=== PATIENT | female | born 1955 | race Caucasian/White ===

== ENCOUNTER → 2017-05-31 13:10 | Outpatient (CLI) | payer OTHER, SELFPAY ==
--- NOTE | 2017-05-31 13:18 | RAD_ITS ---
STUDY: X-RAY - RIGHT HAND REASON FOR EXAM: Female, 61 years old. Systemic lupus erythematosus. TECHNIQUE: 3 view(s) of the hand. COMPARISON: None. FINDINGS: Normal radiocarpal articulation. Normal distal radioulnar joint. Small cystic degenerative changes seen in the medial aspect of the capitate, and possibly in the hamate. There is degenerative joint disease of the scaphotrapezium / trapezoid articulation. Minor narrowing at the proximal articulation between the scaphoid and capitate. The remainder of the carpal articulations are normal. Normal carpometacarpal articulation of the thumb. Normal second through fifth carpometacarpal joints. There is a punctate degenerative calcification along the dorsal medial margin of the head of the fifth metacarpal, otherwise normal metacarpi. Normal metacarpophalangeal joint of the thumb. There is degenerative arthrosis of the interphalangeal joint of the thumb with articular joint space narrowing. Normal proximal phalanx of the thumb. Mild anteromedial periarticular spurring at the base of the first distal phalanx. Normal metacarpophalangeal joints of the second through fifth fingers. There is early degenerative narrowing of the fifth proximal and distal interphalangeal joints. Otherwise, normal proximal and distal interphalangeal joints of the second through fifth fingers. Normal phalanges of the second through fifth fingers. There is generalized soft tissue swelling. There is no demonstrated osseous destructive lesion or fracture. RAD/Hand Min 3 Views IMPRESSION: Soft tissue swelling and scattered degenerative changes of the wrist and hand, as described. No acute osseous abnormality. Electronically Signed: Edinson Baig MD at 15:51 EDT , Service support ,
--- NOTE | 2017-05-31 13:19 | RAD_ITS ---
STUDY: X-RAY - LEFT HAND REASON FOR EXAM: Female, 61 years old. Systemic lupus erythematosus. TECHNIQUE: 3 view(s) of the hand. COMPARISON: None. FINDINGS: Normal radiocarpal articulation. Normal distal radioulnar joint. There is posterior cortical spurring of the triquetrum. There is narrowing of the proximal joint space between the scaphoid and capitate. There is borderline narrowing of the scaphotrapezium / trapezoid articulation. The remainder of the carpal articulations are normal. Normal carpometacarpal articulation of the thumb. Normal second through fifth carpometacarpal joints. Normal metacarpi. There is borderline degenerative arthrosis of the first metacarpophalangeal (MCP) joint. Normal interphalangeal joint of the thumb. Normal proximal phalanx of the thumb. Focal degenerative calcification seen near the medial base of the distal phalanx. The metacarpophalangeal joints of the second through fifth fingers are held in mild flexion. The fourth and fifth proximal interphalangeal joints are held in mild hyperextension. Otherwise, normal proximal and distal interphalangeal joints of the second through fifth fingers. There is a foreshortened middle phalanx of the fifth finger, and mild lateral flattening of the head of the mid phalanx. There is a mild varus deviation at the fifth distal interphalangeal joint. Otherwise, normal of the second through fifth fingers. There is generalized soft tissue swelling of the wrist and hand calcification that may be atherosclerotic seen in the dorsal soft tissues of the distal forearm. There is no demonstrated acute fracture or osseous destructive lesion. RAD/Hand Min 3 Views IMPRESSION: Soft tissue swelling of the wrist and hand. There are occasional scattered degenerative changes of the wrist and hand, as described. No acute osseous abnormality. Electronically Signed: Edinson Baig MD at 15:57 EDT , Service support ,
--- NOTE | 2017-05-31 13:21 | RAD_ITS ---
STUDY: X-RAY - PELVIS AND RIGHT HIP REASON FOR EXAM: Female, 61 years old. Systemic lupus erythematosus. TECHNIQUE: Radiological exam, hip, unilateral, with pelvis when performed; 2 or 3 views. COMPARISON: None. FINDINGS: There is a non-specific bowel gas pattern. There are multiple calcified phleboliths in the pelvic soft tissues. A cluster of calcifications project in the mid left flank, etiology uncertain. There are multilevel degenerative changes of the visualized lumbar spine. There is mild narrowing with cortical sclerosis of the left sacroiliac joint, consistent with degenerative osteoarthritic changes. Normal iliac wings and visualized sacrum. Normal bilateral superior and inferior pubic rami. Normal pubic symphysis. Normal bilateral ischial tuberosities. Normal visualized right femoral head. Normal right acetabulum. There is moderately severe articular joint space narrowing of the right hip. Moderate degenerative joint space narrowing seen on the left. There is no demonstrated osseous destructive lesion or acute fracture. RAD/Hip 2-3 Views with Pelvis IMPRESSION: Degenerative changes of the spine, left sacroiliac joint, and right hip, as described. Electronically Signed: Edinson Baig MD at 15:59 EDT , Service support ,
== END ==
PROVIDERS: Family Provider Family Medicine; PCP Family Medicine; Visit Provider Internal Medicine Rheumatology
DX: M32.9 Systemic lupus erythematosus, unspecified (principal)
CPT/HCPCS: 73130; 73502

== ENCOUNTER → 2017-07-15 09:26 | Outpatient (CLI) | payer OTHER, SELFPAY ==
--- NOTE | 2017-07-15 09:30 | BD_ITS ---
STUDY: DUAL ENERGY X-RAY ABSORPTIOMETRY / DXA REASON FOR EXAM: Female, 62 years old. Bone density screening. Patient is on prednisone. TECHNIQUE: Bone Mineral Density (BMD) measurements of lumbar spine were obtained. COMPARISON: July 10, 2015 FINDINGS: Lumbar Spine (L1-L4): g/cm2 (1.117) / T-score (-0.5) / Z-score (0.7) Findings are suggestive of normal bone density with a low fracture risk. Lumbar Spine (L1-L4): There has been improvement of bone density since the previous examination. BD/Dexa Bone Density Study IMPRESSION: The patient is considered normal as outlined below according to World [employer] Organization (WHO) criteria with a low fracture risk. There has been improvement of bone density since the previous examination. Reference Information: The T-score is the number of standard deviations above or below the standard which is normal for young adults at their peak bone mineral density. The World Health Organization (WHO) interprets the T-scores as follows: Above -1 Normal bone density Between -1 and -2.5 Osteopenia Equal to / or below -2.5 Osteoporosis As a practical clinical guideline, osteopenia may be graded as follows: Mild -1 through -1.5 Moderate -1.6 through -2.0 Severe -2.1 through -2.4 The Z-score is the number of standard deviations above or below age-matched controls. A Z-score of less than -1.5 would be considered abnormal. References: 1. NIH Osteoporosis and Related Bone Diseases http://www.osteo.org 2. International Society for Clinical Densitometry http://www.iscd.org 3. National Osteoporosis Foundation http://www.nof.org Electronically Signed: Ernestina Llanos MD at 9:05 EDT , Service support ,
== END ==
PROVIDERS: Family Provider Family Medicine; PCP Family Medicine; Visit Provider Internal Medicine Rheumatology
DX: M80.00XA Age-related osteoporosis with current pathological fracture, unspecified site, initial encounter for fracture (principal)
CPT/HCPCS: 77080

== ENCOUNTER → 2017-11-26 14:56 | Outpatient (CLI) | payer SELFPAY ==
[2017-12-06 09:20] LABS: HPV APTIMA, High Risk Negative (Negative); HPV Reflexed? YES, CHARGE PATIENT
== END ==
PROVIDERS: Visit Provider Obstetrics & Gynecology
DX: Z12.4 Encounter for screening for malignant neoplasm of cervix (principal)
CPT/HCPCS: 87624; 88175; G0145

== ENCOUNTER → 2018-03-28 11:30 | Outpatient (CLI) | payer OTHER, SELFPAY ==
[2018-03-28 14:09] LABS: Absolute Lymphocyte Count 0.25 X10^3/ul (0.83-4.51); Absolute Neutrophil Count 3.4 X10^3/uL (2.0-7.7); Basophil# 0.01 X10^3/uL; Basophil% 0.3 % (0-1); Hematocrit 43.6 % (37-47); Hemoglobin 13.2 g/dl (12.0-15.0); Lymphocyte # 0.25 X10^3/ul (4.0); Lymphocyte % 6.5 % (19-41); Mean Corp Hgb Conc 30.3 g/gl (32-36); Mean Corpuscular Hgb 25.7 pg (27.0-32.0); Monocyte# 0.15 X10^3/uL; Monocyte% 3.9 % (0-10); Neutrophil # 3.41 X10^3/uL (2.7-7.7); Neutrophil % 88.5 % (47-70); Platelet Count 57 K/mm3 (150-450); RBC Distribution Width CV 16.5 % (11.6-14.6); RBC Distribution Width SD 51.2 fl (35.1-43.9); Red Blood Count 5.13 M/mm3 (4.2-5.4); White Blood Count 3.9 K/mm3 (4.4-11.0)
[2018-03-28 14:13] LABS: Differential Indicated SCAN CRITERIA MET; POSITIVE COUNT NO; POSITIVE DIFFERENTIAL YES; POSITIVE MORPHOLOGY YES
[2018-03-28 14:17] LABS: AST(SGOT) 41 U/L (15-37); Alanine Aminotransfer ALT/SGPT 59 U/L (13-56); Alkaline Phosphatase 266 U/L (45-117); Bilirubin, Direct 0.32 mg/dL (0.00-0.30); Globulin 5.8 g/dL (2.2-4.2); Protein, Total 8.8 g/dL (6.4-8.2)
== END ==
PROVIDERS: Family Provider Family Medicine; PCP Family Medicine; Referring Provider Internal Medicine Gastroenterology; Visit Provider Internal Medicine Gastroenterology
DX: K75.4 Autoimmune hepatitis (principal); D69.6 Thrombocytopenia, unspecified
CPT/HCPCS: 36415; 80076; 85025

== ENCOUNTER → 2018-08-23 16:51 | Outpatient (CLI) | payer OTHER, SELFPAY ==
--- NOTE | 2018-08-23 16:55 | RAD_ITS ---
STUDY: X-RAY CHEST REASON FOR EXAM: Female, 63 years old. Lupus TECHNIQUE: PA and lateral views of the chest. COMPARISON: None. FINDINGS: There is airspace consolidation involving the lateral upper and midlung zones (likely left upper lobe and lingular). The right lung and left lower lobe are clear. There is no demonstrated pleural abnormality. Normal size heart. Normal mediastinum and payton. Normal visualized pulmonary arteries. There is atherosclerotic tortuosity of the aortic arch and descending thoracic aorta. Normal visualized thoracic spine. Normal visualized ribs, clavicles, and shoulders. There is no demonstrated abnormality of the visualized soft tissue structures of the upper abdomen. RAD/Chest PA and Lateral IMPRESSION: Left upper lobe/lingular airspace disease suggesting pneumonia in the appropriate clinical setting. Follow-up is recommended. Electronically Signed: Jarek Roberts MD at 9:05 EDT , Service support ,
[2018-08-23 18:11] LABS: Hematocrit 34.8 % (37-47); Hemoglobin 11.3 g/dl (12.0-15.0); Mean Corpuscular Hgb 26.4 pg (27.0-32.0); Mean Corpuscular Volume 81.3 fL (81-99); Red Blood Count 4.28 M/mm3 (4.2-5.4); White Blood Count 16.7 K/mm3 (4.4-11.0)
[2018-08-23 18:12] LABS: Absolute Neutrophil Count 15.4 X10^3/uL (2.0-7.7); Basophil% 0.1 % (0-1); Differential Indicated SCAN CRITERIA MET; Lymphocyte % 2.2 % (19-41); Mean Corp Hgb Conc 32.5 g/gl (32-36); Monocyte% 5.1 % (0-10); Neutrophil % 92.2 % (47-70); POSITIVE COUNT NO; POSITIVE DIFFERENTIAL YES; POSITIVE MORPHOLOGY YES; Platelet Count 127 K/mm3 (150-450); RBC Distribution Width SD 48.1 fl (35.1-43.9)
[2018-08-23 18:13] LABS: Absolute Lymphocyte Count 0.37 X10^3/ul (0.83-4.51); Basophil# 0.01 X10^3/uL; Lymphocyte # 0.37 X10^3/ul (4.0); Monocyte# 0.86 X10^3/uL
[2018-08-23 18:14] LABS: Platelet Estimate SLT DEC (ADEQ)
[2018-08-23 18:15] LABS: Erythrocyte Sedimentation Rate > 130 mm/hr (0-30)
[2018-08-23 18:30] LABS: Anion Gap 12 (5-15); BUN 52 mg/dL (7-18); BUN/Creat Ratio 60.9 RATIO (10-20); Calcium,Total 8.8 mg/dL (8.5-10.1); Chloride 96 mmol/L (98-107); Creatinine, Serum 0.85 mg/dL (0.55-1.02); EST Glomerular Filtration Rate 72 mL/min (>60); Est Glom Filt Rate - Afr Amer 87 mL/min (>60); Glucose 245 mg/dL (74-106); Potassium 4.1 mmol/L (3.5-5.1); Sodium Level 130 mmol/L (136-145)
[2018-08-25 14:06] LABS: Anti-Scleroderma-70 AB <0.2 AI (0.0-0.9); Anti-ribosomal P Antibodies 0.3 AI (0.0-0.9); SJOGREN'S Anti-SS-A test < 0.2 AI (0.0-0.9); SJOGREN'S Anti-SS-B test < 0.2 AI (0.0-0.9)
[2018-08-26 11:11] LABS: ANTINUCLEAR ANTIBODIES DIRECT Positive (Negative)
[2018-08-26 16:07] LABS: Complement C3 65 mg/dL (82-167)
[2018-08-27 15:26] LABS: Thyroid Peroxidase AB 17 IU/mL (0-34)
== END ==
PROVIDERS: Family Provider Family Medicine; PCP Family Medicine; Referring Provider Internal Medicine Rheumatology; Visit Provider Internal Medicine Rheumatology
DX: M32.9 Systemic lupus erythematosus, unspecified (principal)
CPT/HCPCS: 36415; 71046; 80048; 83516; 85025; 85652; 86038; 86140; 86160; 86226; 86235; 86376; 86431; 87077; 87086; 87088; 87186

== ENCOUNTER → 2018-09-06 08:53 | Outpatient (CLI) | payer OTHER, SELFPAY ==
[2018-09-06 10:19] LABS: Hemoglobin A1c 6.1 % (4.2-6.3)
[2018-09-06 10:24] LABS: Glucose 86 mg/dL (74-106)
== END ==
PROVIDERS: Family Provider Family Medicine; PCP Family Medicine; Referring Provider Internal Medicine Rheumatology; Visit Provider Internal Medicine Rheumatology
DX: M32.9 Systemic lupus erythematosus, unspecified (principal)
CPT/HCPCS: 36415; 82947; 83036

== ENCOUNTER 2018-09-21 16:55 | Observation (INO) | payer OTHER, SELFPAY ==
[2018-09-21 16:57] VITALS: BP 142/79; PULSE 132; RESP 18; TEMP 36.8; O2SAT 97; BMI 26.7
--- NOTE | 2018-09-21 17:11 | NURSING ---
NO OLD EKGS
--- NOTE | 2018-09-21 17:21 | EKG12_ITS ---
Test Reason : TACHYCARDIA Blood Pressure : / mmHG Vent. Rate : 109 BPM Atrial Rate : 109 BPM P-R Int : 128 ms QRS Dur : 070 ms QT Int : 354 ms P-R-T Axes : 027 -32 000 degrees QTc Int : 476 ms Sinus tachycardia with occasional Premature ventricular complexes Left axis deviation Low voltage QRS Possible Anterolateral infarct , age undetermined Abnormal ECG When compared with ECG of 21-SEP-2018 17:05, MANUAL COMPARISON REQUIRED, DATA IS UNCONFIRMED Confirmed by NIKI MENSAH, MANFRED ([id number]), editorial assistant EDMUND JAMESON ([id number]) on 09/23/2018 12:43:55 PM Referred By: Amanda Lerma Confirmed By:TIMI PRINCE MD
[2018-09-21 17:42] LABS: Absolute Lymphocyte Count 0.43 X10^3/ul (0.83-4.51); Basophil# 0.01 X10^3/uL; Basophil% 0.2 % (0-1); Differential Indicated SCAN CRITERIA MET; Lymphocyte # 0.43 X10^3/ul (4.0); Lymphocyte % 9.4 % (19-41); Mean Corp Hgb Conc 28.6 g/gl (32-36); Mean Corpuscular Hgb 23.9 pg (27.0-32.0); Mean Corpuscular Volume 83.7 fL (81-99); Monocyte# 0.14 X10^3/uL; Monocyte% 3.1 % (0-10); Neutrophil # 3.99 X10^3/uL (2.7-7.7); Neutrophil % 87.1 % (47-70); POSITIVE COUNT NO; POSITIVE DIFFERENTIAL YES; POSITIVE MORPHOLOGY YES; Platelet Count 81 K/mm3 (150-450); RBC Distribution Width CV 17.5 % (11.6-14.6); RBC Distribution Width SD 53.8 fl (35.1-43.9); Red Blood Count 4.18 M/mm3 (4.2-5.4); White Blood Count 4.6 K/mm3 (4.4-11.0)
[2018-09-21 17:44] LABS: Anion Gap 8 (5-15); BUN 15 mg/dL (7-18); BUN/Creat Ratio 22.2 RATIO (10-20); Calcium,Total 8.4 mg/dL (8.5-10.1); Chloride 108 mmol/L (98-107); Creatinine, Serum 0.68 mg/dL (0.55-1.02); EST Glomerular Filtration Rate 94 mL/min (>60); Est Glom Filt Rate - Afr Amer 113 mL/min (>60); Estimated Creatinine Clearance 78.62 ml/min; Glucose 170 mg/dL (74-106); Potassium 3.8 mmol/L (3.5-5.1); Sodium Level 140 mmol/L (136-145)
[2018-09-21 18:05] LABS: Differential Comment SCANNED
--- NOTE | 2018-09-21 18:28 | CT_ITS ---
STUDY: CTA CHEST REASON FOR EXAM: Female, 63 years old. Edema. History of lupus. RADIATION DOSAGE (If Supplied By Facility): CTDIvol = ( 7.77 ) mGy, DLP = ( 275.88 ) mGycm TECHNIQUE: The examination was performed with the intravenous administration of 100ml IV Isovue 300. Post-processing of the angiographic images was performed, with multiplanar reformation and 3D reconstruction. Individualized dose optimization techniques were used for this CT. COMPARISON: None. FINDINGS: Normal enhancement of the main pulmonary artery and right and left pulmonary arteries. Normal enhancement of the bilateral peripheral pulmonary arteries. There is no demonstrated pulmonary embolism. Normal thoracic aorta and visualized great vessels. There is no demonstrated aortic dissection. There is mild cardiomegaly. Normal mediastinum. Normal hilar regions. Normal visualized trachea and bronchi. The lungs are under expanded. Parenchymal density and volume loss is seen of the left upper lobe. Findings are most likely scarring but cannot exclude atelectasis or infiltrate. Infiltrating neoplasm also not excluded. Consider follow-up and/or bronchoscopy. Normal chest wall structures. There are degenerative changes of thoracic spine. There is diffuse demineralization. There are multiple compression fractures especially of T7, T9, T10, and T11. Limited views to the upper abdomen show ascites, a small liver, and splenomegaly. Question cirrhosis. CT/CTA Chest W/WO Contrast IMPRESSION: No evidence for PE. Low lung volumes and pulmonary density throughout the left upper lobe, please see comments above. Electronically Signed: Galen Del Angel MD at 19:19 EDT , Service support ,
[2018-09-21 19:00] VITALS: BP 139/80; PULSE 103; RESP 18; O2SAT 99
[2018-09-21 20:19] VITALS: BP 142/86; PULSE 112; RESP 19; O2SAT 99
--- NOTE | 2018-09-21 20:38 | ED.DCSUM_ITS ---
- ER Visit Summary Date of Service: 09/21/18 Chief Complaint: Palpitations, shortness of breath History of Present Illness: The patient is a 63 F presenting with palpitations, shortness of breath. This has been worsening over the past several days. The shortness of breath is worsened with exertion. She was seen by her primary care physician today and was sent into the ED for further evaluation. She was treated as an outpatient for pneumonia in August. She also complains of increasing lower extremity swelling. She has a history of hypertension and lupus. Denies history of PE/DVT. Physical Examination: Vitals are stable. Heart rate 132. Patient is afebrile. Alert no acute distress. HEENT exam is unremarkable. Neck is supple. Lungs are diminished bilaterally. Heart is regular and tachycardic Abdomen is soft nontender nondistended. Extremities symmetric edema Skin is warm and dry. No focal neurologic deficit. Remainder of exam is unremarkable. Emergency Department Course and Treatment: CBC normal hemoglobin 10.0, platelet 81. Chemistries unremarkable. Troponin is negative. BNP 74. Blood cultures were sent. EKG is sinus rate of 119 with no acute ischemic changes. CTA chest shows No evidence for PE. Low lung volumes and pulmonary density throughout the left upper lobe. Patient given Rocephin, Zithromax IV. Discussed with the hospitalist for admission. Disposition: Admission Impression: Pneumonia, tachycardia This note was generated with [employer] dictation software. It may contain incorrect words, spelling, and punctuation that were not noted in review of the chart prior to signing ED Disposition - Plan for ED Patient: Referrals: Juanjose Chapman MD [Primary Care Provider] -
--- NOTE | 2018-09-21 20:41 | HP.PCM_ITS ---
Problem List (1) Tachycardia Status: Acute (2) SLE (systemic lupus erythematosus related syndrome) Status: Chronic (3) Cirrhosis Status: Chronic Qualifiers: Hepatic cirrhosis type: unspecified hepatic cirrhosis Ascites presence: with ascites Qualified Code(s): K74.60 - Unspecified cirrhosis of liver; R18.8 - Other ascites (4) Autoimmune hepatitis Status: Chronic History of Present Illness Date of Admission: 09/21/18 Chief Complaint: Tachycardia - 1 month. Abdominal distension, SOB ongoing for 3 weeks The patient is a 63 year old F with past medical history of autoimmune hepatitis with ascites and liver cirrhosis, follows with Dr. Dinh who comes in referred from her primary care doctor's office with tachycardia. Patient admits to having had tachycardia for about 1 month. They had followed up with the primary care doctor's office over this past 1 month. She also had noticed increasing abdominal distension with worsening bilateral lower extremities edema. She has been having loose stools, about 3 times a day. She would not call it diarrhea. Denies any fever or chills or cough or sputum production. She was recently treated for pneumonia about 2 weeks ago. She however has remained fatigued since then. Denies any chest pain or dizziness. Today her primary care doctor noticed tachycardia with heart rate in the 120s and stented to the emergency department. In the ED, her heart rate went as high as 132. Her WBC count is 4.6, hemoglobin 10.0, platelet count is 81 which is close to her baseline, BMP is unremarkable except for magnesium 1.6, calcium 8.4 CTA of the chest negative for acute PE. It did show left upper lobe parenchyma density and volume loss, most likely secondary to infiltrate versus atelectasis versus scarring. Abdomen and pelvis CT shows diffuse ascites, sclerotic appearing liver with marked splenomegaly, gallstones without cholecystitis, hiatal hernia, anasarca Past Medical History Past Medical History (Chronic Problems): Chronic Problems SLE (systemic lupus erythematosus related syndrome) (Chronic) Cirrhosis (Chronic) Autoimmune hepatitis (Chronic) Allergies Sulfa (Sulfonamide Antibiotics) Allergy (Verified 09/21/18 16:59) Other UNKNOWN Home Medications: Ambulatory Orders Medication Instructions Recorded Amlodipine [Norvasc] 5 mg PO DAILY 09/21/18 Prednisone 10 mg PO DAILY 09/21/18 Surgical History: appendectomy, - - section Psychiatric History: No pertinent psych hx [employer] 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 Denies: Anorexia, Chills, Fever, Weight Change Eyes: Denies: Blurred vision, Cataracts, Conjunctivae Inflammation, Double vision, Pain, Redness, Vision Change HEENT: Denies: Difficulty Hearing, Difficulty Swallowing, Head Aches, Hearing Changes, Sinus Congestion, Sinus Drainage, Sore Throat Cardiovascular: Reports: Edema, Palpitations. Denies: Chest Pain, Claudication, Chest Pressure, Orthopnea Respiratory: Reports: Shortness of Breath, Shortness of breath upon exertion. Denies: Cough, Hemoptysis, Sputum production Gastrointestinal: Denies: Abdominal Pain, Constipation, Hematemesis, Hematochezia, Nausea, Vomiting Genitourinary: Denies: Dysuria, Frequency, Incontinence Gynecological: Denies: Breast symptoms, Excessively long or heavy periods, Vaginal discharge Musculoskeletal: Denies: Joint Pain, Joint Tenderness Skin: Denies: Rash, Wounds Neurological: Denies: Difficulty swallowing, Focal weakness, Numbness, Tingling Psychiatric: Denies: Anxiety, Depression, Homicidal Ideations, Suicidal Ideations Hematologic/ Lymphatic: Denies: Easy Bruising, Easy Bleeding VTE Information - Inpt Only VTE Present on Admission: No VTE Pharm Prophylaxis ordered?: Yes Patient Problems: Active and Suspected Problems Tachycardia (Acute) - Physical Exam General: Alert, Oriented x3, Cooperative, No apparent distress HEENT: Atraumatic, PERRLA, EOMI, Normocephalic Oral: Moist Mucosa Neck: Supple Lungs: Clear to auscultation, Normal air movement Cardiovascular: Regular rate, Regular Rhythm, Normal S1, Normal S2, No murmurs Abdomen: Bowel Sounds Present, Soft, Non Tender, Non-Distended, No Hepato- splenomegaly Extremities: Edema - bilateral leg edema +2 especially at the ankles- +3 Skin: No rashes Musculoskeletal: No Tenderness to Palpation of Joints or Extremities Lymphatic: No Cervical, Supraclavicular, or Inguinal Adenopathy Neurological: Cranial nerves II-XII grossly intact, Neuro grossly intact Psych/Mental Status: Normal Affect, Appropriate Vital Signs Temp Pulse Resp BP Pulse Ox 98.2 F 112 H 19 H 142/86 H 99 09/21/18 16:57 09/21/18 20:19 09/21/18 20:19 09/21/18 20:19 09/21/18 20:19 Oxygen Delivery Method Room Air Weight: 58.06 kg Body Mass Index (BMI) 26.7 Laboratory Tests Past 24 Hrs 09/21/18 09/21/18 09/21/18 17:10 17:10 17:10 WBC 4.6 RBC 4.18 L Hgb 10.0 L Hct 35.0 L MCV 83.7 MCH 23.9 L MCHC 28.6 L RDW 17.5 H RDW Differential 53.8 H Plt Count 81 L MPV TNP Immature Gran % (Auto) 0.200 Neut % (Auto) 87.1 H Lymph % (Auto) 9.4 L Fergus % (Auto) 3.1 Eos % (Auto) 0.0 Baso % (Auto) 0.2 Absolute Neuts (auto) 4.0 Absolute Lymphs (auto) 0.43 L Total Counted Not Reportable Differential Comment SCANNED Sodium 140 Potassium 3.8 Chloride 108 H Carbon Dioxide 24.0 Anion Gap 8 BUN 15 Creatinine 0.68 Estim Creat Clear Calc 78.62 Est GFR (MDRD) Af Amer 113 Est GFR (MDRD) Non-Af 94 BUN/Creatinine Ratio 22.2 H Glucose 170 H Calcium 8.4 L Troponin I < 0.015 B-Natriuretic Peptide 74.0 Assessment/Plan All Active Problems Tachycardia (Acute) 63 year old F with past medical history of autoimmune hepatitis with ascites and liver cirrhosis, follows with Dr. Dinh, SLE, hypertension who comes in referred from her primary care doctor's office with tachycardia. 1. Tachycardia, sinus, unclear etiology for now, states is been ongoing for 1 month. TSH is normal, PE was ruled out with CTA of the chest, no signs of infection, blood cultures are pending Started on gentle IV fluids, will continue to monitor, 2d-echo, trend troponins 2. Liver cirrhosis secondary to autoimmune hepatitis with ascites, patient has worsening ascites with lower extremity edema Ultrasound-guided therapeutic paracentesis tomorrow, OPAL-wraps to the legs 3. Hypertension, on amlodipine, will discontinue amlodipine on account of extra pedal edema Will start patient on spironolactone 25mg po bid with holding parameters 4. Hypomagnesemia, replaced, recheck in a.m. 5. 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 SOB secondary to progressive ascites, less likely from community-acquired pneumonia as patient has no fever or chills or cough No leukocytosis. Recently completed treatment for pneumonia 2 weeks prior. Patient to undergo therapeutic ultrasound-guided paracentesis, continue incentive spirometer 7. Thrombocytopenia secondary to liver cirrhosis, at her baseline, will trend 8. DVT prophylaxis with SCDs and account of thrombocytopenia Code Visit Inpatient E&M: 29297 Init Hosp L3
--- NOTE | 2018-09-21 21:03 | CT_ITS ---
STUDY: CT ABDOMEN AND PELVIS WITHOUT CONTRAST REASON FOR EXAM: Female, 63 years old. Abdominal pain and distention. History of lupus. RADIATION DOSAGE (If Supplied By Facility): CTDIvol = ( 7.47 ) mGy, DLP = ( 417.36 ) mGycm TECHNIQUE: Transaxial images were obtained from the dome of the diaphragm to the symphysis pubis without oral contrast, and without intravenous contrast. Sagittal and coronal images were reconstructed. Individualized dose optimization techniques were used for this CT. COMPARISON: CTA of the chest, August 22, 2018. FINDINGS: There is a small right pleural effusion. Lungs are clear. The visualized portions of the heart are within normal limits. The liver appears cirrhotic with prominent left lateral lobe prominent caudate lobe and nodular surface pattern. There is no focal mass. There are gallstones in the gallbladder without biliary ductal dilatation. Marked splenomegaly. Normal pancreas. Normal bilateral adrenal glands. Normal right kidney. There is an 8 mm cyst in the upper left kidney. Left kidney is otherwise unremarkable. Normal bilateral ureters. There is a type I hiatal hernia. The stomach is otherwise unremarkable. Normal small intestine. Normal colon. The appendix is visualized and appears normal. There is diffuse atherosclerotic calcification of the abdominal aorta, without a demonstrated aneurysm. Normal inferior vena cava. Normal retroperitoneum. There is diffuse ascites in the subphrenic space is throughout the abdomen and pelvis. Normal urinary bladder. Normal uterus and ovaries. There is no pelvic lymphadenopathy. No free air is seen within the peritoneal cavity. There is mild anasarca of the soft tissues of the abdominal wall and flanks. There is flattening of the lumbar lordosis. There is diffuse degenerative changes of the lumbar spine. There is compression deformities at T9-L5. These are age indeterminate. CT/Abdomen/Pelvis without Cont IMPRESSION: 1. Diffuse ascites. 2. Sclerotic appearing liver with marked splenomegaly. 3. Gallstones without secondary evidence for acute cholecystitis. 4. Hiatal hernia. 5. Small right pleural effusion. 6. Anasarca. 7. Atherosclerotic changes of the abdominal aorta. 8. Degenerative changes of the thoracolumbar spine with multiple age indeterminate compression deformities. 9. Left renal cyst. Electronically Signed: Clifford Joseph DO at 21:35 EDT Tel [phone], Service support ,
[2018-09-21 21:33] VITALS: BP 131/79; PULSE 109; RESP 21; O2SAT 98
--- NOTE | 2018-09-21 21:46 | ED.RN ---
ZITHROMAX STARTED PRIOR TO ROCEPHIN DUE TO IT NOT COMING UP FROM PHARMACY YET
[2018-09-21 22:30] VITALS: BP 148/87; PULSE 107; RESP 20; TEMP 36.6; O2SAT 98
[2018-09-21 22:57] VITALS: PULSE 102
--- NOTE | 2018-09-21 22:59 | ECHOD_ITS ---
Reason For Study: ARRHYTHMIA Procedure This was a 2D Doppler, Color Flow transthoracic echocardiogram. The study was technically difficult. Exam performed portable in patient room. Left Ventricle Normal size and thickness. The estimated ejection fraction is 60 %. Stage 2 diastolic dysfunction. No regional wall motion abnormalities noted. Right Ventricle Normal right ventricle. Normal systolic function. Atria The left atrium is mildly enlarged. Normal right atrium. possible ASD. Mitral Valve There is no mitral valve stenosis. Mild-Moderate (1-2+) mitral valve insufficiency. Tricuspid Valve There is no tricuspid stenosis. Trivial tricuspid valve insufficiency. Pulmonary artery systolic pressure is 40 mmHg. Aortic Valve There is no aortic stenosis. No aortic valve insufficiency. Pulmonic Valve There is no pulmonic valvular stenosis. No pulmonic valve insufficiency identified. Great Vessels Normal aortic root. Pericardium/Pleural No pericardial effusion. MMode/2D Measurements & Calculations LVIDd: 4.3 cm IVSd: 1.1 cm Ao root diam: 3.4 cm LVIDs: 3.1 cm LVPWd: 1.3 cm RVDd: 2.7 cm FS: 26.9 % LAV(MOD-bp): 48.9 ml LA A4 area: 16.1 cm2 LA dimension(2D): 3.6 cm LAV(MOD-bp) Indexed: 37.2 ml/m2 LAV(MOD-sp2): 57.9 ml LAV(MOD-sp4): 40.2 ml RA A4 area: 9.9 cm2 Doppler Measurements & Calculations MV E max alvin: 90.1 cm/sec Lat Peak E' Alvin: 9.0 cm/sec Med Peak E' Alvin: 8.3 cm/sec MV A max alvin: 136.0 cm/sec E/E' lat: 10.0 E/E' med: 10.9 MV E/A: 0.66 Ao V2 max: 165.0 cm/sec LV V1 max: 108.1 cm/sec PA V2 max: 103.6 cm/sec Ao max P.9 mmHg LV V1 max P.7 mmHg TR max alvin: 277.6 cm/sec TR max P.0 mmHg Interpretation Summary The estimated ejection fraction is 60 %. Stage 2 diastolic dysfunction. The left atrium is mildly enlarged. possible ASD Mild-Moderate (1-2+) mitral valve insufficiency. Pulmonary artery systolic pressure is 40 mmHg. Ordering Physician: Amanda Lerma Referring Physician: ZEKE MARTINEZ Performed By: Chiquita Butler, ANAM, RVT
[2018-09-21 23:11] VITALS: BMI 26.9
[2018-09-21 23:35] LABS: Magnesium 1.6 mg/dL (1.6-2.6)
[2018-09-21 23:47] LABS: Thyroid Stim Hormone (TSH) 2.19 uIU/mL (0.358-3.74)
[2018-09-22] VITALS (9 sets, daily range): BP systolic 130–135; BP diastolic 71–82; PULSE 81–108; RESP 16–18; TEMP 36.6–37.1; O2SAT 95–100
[2018-09-22] MEDS: 0.9% Normal Saline 1,000 ML 75 ML IV (00:01)
[2018-09-22] MEDS: Heparin Injection (Vial) 5,000 UNIT/ML VIAL 5000 UNIT SC (00:03)
[2018-09-22] MEDS: Ceftriaxone 1 GM/50 ML BAG IV (00:04)
--- NOTE | 2018-09-22 00:18 | EKG12_ITS ---
Test Reason : PALPITATIONS Blood Pressure : / mmHG Vent. Rate : 119 BPM Atrial Rate : 119 BPM P-R Int : 126 ms QRS Dur : 064 ms QT Int : 302 ms P-R-T Axes : 018 -37 014 degrees QTc Int : 424 ms Sinus tachycardia with Premature atrial complexes Left axis deviation Low voltage QRS Septal infarct , age undetermined Possible Lateral infarct , age undetermined Inferior infarct , age undetermined Abnormal ECG Confirmed by NIKI MENSAH, MANFRED ([id number]), continuity editor EDMUND JAMSEON ([id number]) on 09/23/2018 12:27:37 PM Referred By: Amanda Lerma Confirmed By:TIMI PRINCE MD
[2018-09-22 00:32] LABS: AST(SGOT) 31 U/L (15-37); Alanine Aminotransfer ALT/SGPT 36 U/L (13-56); Albumin, Serum 2.7 g/dL (3.2-5.0); Alkaline Phosphatase 286 U/L (45-117); Bilirubin, Direct 0.25 mg/dL (0.00-0.30); Globulin 4.7 g/dL (2.2-4.2); Protein, Total 7.4 g/dL (6.4-8.2)
[2018-09-22 05:29] LABS: International Normalized Ratio 1.3; Prothrombin Time (Protime)PT. 15.7 SECONDS (11.7-14.9)
[2018-09-22 05:30] LABS: Partial Thromboplast Time 28.4 Seconds (24.1-36.2)
[2018-09-22 05:32] LABS: Absolute Lymphocyte Count 0.23 X10^3/ul (0.83-4.51); Absolute Neutrophil Count 1.2 X10^3/uL (2.0-7.7); Basophil# 0.01 X10^3/uL; Basophil% 0.6 % (0-1); Differential Indicated SCAN CRITERIA MET; Hematocrit 29.1 % (37-47); Lymphocyte # 0.23 X10^3/ul (4.0); Mean Corp Hgb Conc 27.5 g/gl (32-36); Mean Corpuscular Volume 83.6 fL (81-99); Mean Platelet Vol. 11.4 fl (6.2-12.0); Monocyte# 0.21 X10^3/uL; Monocyte% 12.8 % (0-10); Neutrophil # 1.18 X10^3/uL (2.7-7.7); POSITIVE COUNT NO; POSITIVE DIFFERENTIAL YES; POSITIVE MORPHOLOGY NO; Platelet Count 82 K/mm3 (150-450); RBC Distribution Width CV 17.6 % (11.6-14.6); RBC Distribution Width SD 51.5 fl (35.1-43.9); Red Blood Count 3.48 M/mm3 (4.2-5.4); White Blood Count 1.6 K/mm3 (4.4-11.0)
[2018-09-22 05:36] LABS: ALB/GLOB Ratio 0.6 RATIO (0.9-2.4); AST(SGOT) 16 U/L (15-37); Alanine Aminotransfer ALT/SGPT 26 U/L (13-56); Albumin, Serum 2.1 g/dL (3.2-5.0); Alkaline Phosphatase 211 U/L (45-117); Anion Gap 6 (5-15); BUN 10 mg/dL (7-18); Calcium,Total 7.7 mg/dL (8.5-10.1); Chloride 112 mmol/L (98-107); Creatinine, Serum 0.46 mg/dL (0.55-1.02); EST Glomerular Filtration Rate 148 mL/min (>60); Est Glom Filt Rate - Afr Amer 179 mL/min (>60); Estimated Creatinine Clearance 116.71 ml/min; Globulin 3.7 g/dL (2.2-4.2); Glucose 84 mg/dL (74-106); Iron 17 ug/dL (50-170); Iron Binding Capacity,Total 192 ug/dL (250-450); PERCENT IRON SATURATION 8.9 % (15.0-55.0); Potassium 3.4 mmol/L (3.5-5.1); Protein, Total 5.8 g/dL (6.4-8.2); Sodium Level 144 mmol/L (136-145)
--- NOTE | 2018-09-22 05:55 | RAD_ITS ---
STUDY: X-RAY CHEST REASON FOR EXAM: Female, 63 years old. Increasing shortness of breath and tachycardia. TECHNIQUE: PA and lateral views of the chest. COMPARISON: Comparison is made with prior study dated August 23, 2018. FINDINGS: EKG electrodes are seen. Persistent infiltrate in the peripheral aspect of the left upper lobe and lingular segment of the left upper lobe. There has been moderate degree of improvement as compared to prior study. Further follow-up is recommended. There is no demonstrated pleural abnormality. Normal size heart. Normal mediastinum and payton. Normal visualized pulmonary arteries. There is atherosclerotic tortuosity of the aortic arch and descending thoracic aorta. There are degenerative changes of the visualized thoracic spine. Normal visualized ribs, clavicles, and shoulders. There is no demonstrated abnormality of the visualized soft tissue structures of the upper abdomen. RAD/Chest PA and Lateral IMPRESSION: Persistent infiltrate in the left upper lobe as described although there has been a moderate degree of improvement. Further follow-up is recommended. Electronically Signed: Umer Meier, at 12:54 EDT , Service support ,
[2018-09-22 06:23] LABS: Differential Comment SCANNED; Hypochromasia 3+; Polychromasia RARE; Rouleaux 1+
[2018-09-22] MEDS: predniSONE 10 MG Tablet PO (09:32)
[2018-09-22 10:58] LABS: Magnesium 2.1 mg/dL (1.6-2.6)
[2018-09-22 11:56] LABS: Pathologist Review Reviewed
--- NOTE | 2018-09-22 12:28 | PN_ITS ---
Patient Problems: Active and Suspected Problems Tachycardia (Acute) Subjective: No further palp but still tachy. Increased abdominal distention and LE edema, weight gain recently. No abd. pain. No urinary issues. Occasional dry cough. No fever/chills/CP. No further LH/Dizziness. No arthritic flair up. - Physical Exam General: Alert, Oriented x3, Cooperative HEENT: Atraumatic, PERRLA, EOMI, Normocephalic Neck: Supple, No JVD, Negative Carotid Bruits Lungs: Clear to auscultation, Normal air movement Cardiovascular: Regular rate, No murmurs Abdomen: Bowel Sounds Present, Soft, Non Tender, Distended - mild Extremities: Capillary Refill Less than 3 Seconds, Edema - 1-2+ pitting edema BLE Skin: No rashes, No breakdown Musculoskeletal: No Tenderness to Palpation of Joints or Extremities Neurological: Cranial nerves II-XII grossly intact Psych/Mental Status: Normal Affect, Appropriate, Alert and oriented to time, place, person, mood and affect Vital Signs Temp Pulse Resp BP Pulse Ox 98.7 F 99 16 135/81 H 96 09/22/18 10:30 09/22/18 10:30 09/22/18 10:30 09/22/18 10:30 09/22/18 10:30 Oxygen Delivery Method Room Air Weight: 128 lb 15.527 oz Body Mass Index (BMI) 26.9 Intake and Output for Last 24 Hours 09/20/18 09/21/18 09/22/18 23:59 23:59 23:59 Intake Total 454 / 454 425 / 425 Balance 454 / 454 425 / 425 Laboratory Tests Past 24 Hrs 09/21/18 09/21/18 09/21/18 17:10 17:10 17:10 WBC 4.6 RBC 4.18 L Hgb 10.0 L Hct 35.0 L MCV 83.7 MCH 23.9 L MCHC 28.6 L RDW 17.5 H RDW Differential 53.8 H Plt Count 81 L MPV TNP Immature Gran % (Auto) 0.200 Neut % (Auto) 87.1 H Lymph % (Auto) 9.4 L [place] % (Auto) 3.1 Eos % (Auto) 0.0 Baso % (Auto) 0.2 Absolute Neuts (auto) 4.0 Absolute Lymphs (auto) 0.43 L Total Counted Not Reportable Differential Comment SCANNED Diff Path Review Polychromasia Hypochromasia Rouleaux PT INR APTT Sodium 140 Potassium 3.8 Chloride 108 H Carbon Dioxide 24.0 Anion Gap 8 BUN 15 Creatinine 0.68 Estim Creat Clear Calc 78.62 Est GFR (MDRD) Af Amer 113 Est GFR (MDRD) Non-Af 94 BUN/Creatinine Ratio 22.2 H Glucose 170 H Calcium 8.4 L Phosphorus Magnesium Iron TIBC Iron Saturation Total Bilirubin Direct Bilirubin AST ALT Alkaline Phosphatase Troponin I < 0.015 B-Natriuretic Peptide 74.0 Total Protein Albumin Globulin Albumin/Globulin Ratio TSH 09/21/18 09/21/18 09/21/18 17:10 17:10 17:10 WBC RBC Hgb Hct MCV MCH MCHC RDW RDW Differential Plt Count MPV Immature Gran % (Auto) Neut % (Auto) Lymph % (Auto) [place] % (Auto) Eos % (Auto) Baso % (Auto) Absolute Neuts (auto) Absolute Lymphs (auto) Total Counted Differential Comment Diff Path Review Polychromasia Hypochromasia Rouleaux PT INR APTT Sodium Potassium Chloride Carbon Dioxide Anion Gap BUN Creatinine Estim Creat Clear Calc Est GFR (MDRD) Af Amer Est GFR (MDRD) Non-Af BUN/Creatinine Ratio Glucose Calcium Phosphorus Magnesium 1.6 Iron TIBC Iron Saturation Total Bilirubin 0.50 Direct Bilirubin 0.25 AST 31 ALT 36 Alkaline Phosphatase 286 H Troponin I B-Natriuretic Peptide Total Protein 7.4 Albumin 2.7 L Globulin 4.7 H Albumin/Globulin Ratio TSH 2.19 09/22/18 09/22/18 09/22/18 05:10 05:10 05:10 WBC 1.6 L RBC 3.48 L Hgb 8.0 L Hct 29.1 L MCV 83.6 MCH 23.0 L MCHC 27.5 L RDW 17.6 H RDW Differential 51.5 H Plt Count 82 L MPV 11.4 Immature Gran % (Auto) 0.600 Neut % (Auto) 72.0 H Lymph % (Auto) 14.0 L [place] % (Auto) 12.8 H Eos % (Auto) 0.0 Baso % (Auto) 0.6 Absolute Neuts (auto) 1.2 L Absolute Lymphs (auto) 0.23 L Total Counted Not Reportable Differential Comment SCANNED Diff Path Review Reviewed Polychromasia RARE Hypochromasia 3+ Rouleaux 1+ PT 15.7 H INR 1.3 APTT 28.4 Sodium 144 Potassium 3.4 L Chloride 112 H Carbon Dioxide 26.0 Anion Gap 6 BUN 10 Creatinine 0.46 L Estim Creat Clear Calc 116.71 Est GFR (MDRD) Af Amer 179 Est GFR (MDRD) Non-Af 148 BUN/Creatinine Ratio 22.0 H Glucose 84 Calcium 7.7 L Phosphorus Magnesium Iron 17 L TIBC 192 L Iron Saturation 8.9 L Total Bilirubin 0.40 Direct Bilirubin AST 16 ALT 26 Alkaline Phosphatase 211 H Troponin I 0.017 B-Natriuretic Peptide Total Protein 5.8 L Albumin 2.1 L Globulin 3.7 Albumin/Globulin Ratio 0.6 L TSH 09/22/18 09/22/18 07:50 07:50 WBC RBC Hgb Hct MCV MCH MCHC RDW RDW Differential Plt Count MPV Immature Gran % (Auto) Neut % (Auto) Lymph % (Auto) [place] % (Auto) Eos % (Auto) Baso % (Auto) Absolute Neuts (auto) Absolute Lymphs (auto) Total Counted Differential Comment Diff Path Review Polychromasia Hypochromasia Rouleaux PT INR APTT Sodium Potassium Chloride Carbon Dioxide Anion Gap BUN Creatinine Estim Creat Clear Calc Est GFR (MDRD) Af Amer Est GFR (MDRD) Non-Af BUN/Creatinine Ratio Glucose Calcium Phosphorus 3.0 Magnesium 2.1 Iron TIBC Iron Saturation Total Bilirubin Direct Bilirubin AST ALT Alkaline Phosphatase Troponin I 0.018 B-Natriuretic Peptide Total Protein Albumin Globulin Albumin/Globulin Ratio TSH Medical Necessity - Tobacco Use Smoking Status: Former smoker Tobacco Use: Non-smoker Assessment/Plan All Active Problems Tachycardia (Acute) 1. Tachycardia - unclear etiology. Mag repleted. recheck - normal. Replete K. No infectious etiology noted. No fever. She does have increased LE and abdominal swelling. DC IV fluids. Paracentesis tomorrow. Echo pending. S-tachy on tele. Trop neg. x 3. BNP neg. TSH neg. Tachy improving. -CTA no PE. Low lung volumes and RAE density scarring vs atelectasis vs infiltrate. -CXR pending -CT abd - diffuse ascites, liver sclerosis, splenomegaly, hiatal hernia, small R pleural effusion, gallstones with no acute changes, anasarca, etc. 2. Pancytopenia - suspect 2/2 SLE and autoimmune hepatitis. Trend. Avoid heparin products. 3. Liver cirrhosis 2/2 autoimmune hepatitis - no abd pain. Inc. Alk phos, decreasing. 4. HTN - stable 5. Microcytic anemia - iron deficient. Replete. Check stool occult blood. Hgb 10.0-->8.0 6. DVT ppx: SCDs This patient was seen by Georgi Lisa PA-C under the supervision of Dr. Senior.
[2018-09-22] MEDS: Spironolactone 25 MG Tablet PO ×2 (13:54→22:10)
[2018-09-22] MEDS: Calcium Carb/Vitamin D 1 TABLET Tablet PO (13:54)
[2018-09-22] MEDS: Ferrous Sulfate 325 MG Tablet PO (13:54)
[2018-09-22] MEDS: Propranolol LA 80 MG Capsule PO (13:54)
[2018-09-23 03:00] VITALS: PULSE 87
[2018-09-23 04:00] VITALS: BP 134/75; PULSE 87; RESP 16; TEMP 36.4; O2SAT 97
[2018-09-23 07:07] VITALS: PULSE 83
[2018-09-23 07:10] VITALS: O2SAT 93
[2018-09-23 07:57] LABS: Absolute Neutrophil Count 1.7 X10^3/uL (2.0-7.7); Differential Indicated SCAN CRITERIA MET; Eosinophil# 0.01 X10^3/uL; Eosinophils% 0.4 % (0-5); Lymphocyte % 13.2 % (19-41); Mean Corpuscular Hgb 24.1 pg (27.0-32.0); Mean Corpuscular Volume 82.9 fL (81-99); Mean Platelet Vol. 11.6 fl (6.2-12.0); Monocyte# 0.24 X10^3/uL; Monocyte% 10.5 % (0-10); Neutrophil # 1.72 X10^3/uL (2.7-7.7); Neutrophil % 75.5 % (47-70); POSITIVE COUNT NO; POSITIVE DIFFERENTIAL YES; POSITIVE MORPHOLOGY YES; Platelet Count 75 K/mm3 (150-450); RBC Distribution Width CV 17.5 % (11.6-14.6); RBC Distribution Width SD 53.7 fl (35.1-43.9); Red Blood Count 3.74 M/mm3 (4.2-5.4); White Blood Count 2.3 K/mm3 (4.4-11.0)
[2018-09-23 08:08] LABS: Anion Gap 7 (5-15); BUN 12 mg/dL (7-18); BUN/Creat Ratio 27.7 RATIO (10-20); Calcium,Total 7.7 mg/dL (8.5-10.1); Chloride 112 mmol/L (98-107); Creatinine, Serum 0.43 mg/dL (0.55-1.02); EST Glomerular Filtration Rate 157 mL/min (>60); Est Glom Filt Rate - Afr Amer 190 mL/min (>60); Estimated Creatinine Clearance 125.28 ml/min; Glucose 72 mg/dL (74-106); Potassium 3.5 mmol/L (3.5-5.1); Sodium Level 143 mmol/L (136-145)
[2018-09-23 09:00] VITALS: BP 136/69; PULSE 83; RESP 16; TEMP 37; O2SAT 98
[2018-09-23] MEDS: Ferrous Sulfate 325 MG Tablet PO (09:19)
[2018-09-23] MEDS: Calcium Carb/Vitamin D 1 TABLET Tablet PO (09:19)
[2018-09-23] MEDS: 0.9% NaCl Peripheral Flush Adult/Peds IV (09:19)
[2018-09-23] MEDS: predniSONE 10 MG Tablet PO (09:19)
[2018-09-23] MEDS: Spironolactone 25 MG Tablet PO (09:19)
[2018-09-23] MEDS: Propranolol LA 80 MG Capsule PO (09:19)
--- NOTE | 2018-09-23 11:20 | DCINST_ITS ---
- Discharge Diagnoses Current Active Problems: Current Active and Chronic Problems Tachycardia (Acute) SLE (systemic lupus erythematosus related syndrome) (Chronic) Cirrhosis (Chronic) Autoimmune hepatitis (Chronic) You will use the following diet at home:: Cardiac Your food should be the consistency of: Regular Your liquids should be the consistency of: Regular/Thin Discharge Activity: Return to Normal Activity Allergies/Adverse Reactions: Allergies Sulfa (Sulfonamide Antibiotics) Allergy (Verified 09/21/18 16:59) Other UNKNOWN Medications to take at Discharge Amlodipine [Norvasc] 5 mg PO DAILY 09/21/18 Prednisone 10 mg PO DAILY 09/21/18 Calcium Carb/Vitamin D [Os-Talon 500MG + D] 1 tab PO BIDCM #60 tab 09/23/18 Ferrous Sulfate 325 mg PO BIDCM #60 tab 09/23/18 Propranolol HCl [Inderal LA (Beta Dioni)] 80 mg PO DAILY #30 cap 09/23/18 Spironolactone [Aldactone] 25 mg PO BID #60 tab 09/23/18 The following prescriptions were given: Spironolactone [Aldactone] 25 mg PO BID #60 tab Transmission Status: Pending to [facility] Ferrous Sulfate 325 mg PO BIDCM #60 tab Transmission Status: Pending to [facility] Propranolol HCl [Inderal LA (Beta Dioni)] 80 mg PO DAILY #30 cap Transmission Status: Pending to [facility] Calcium Carb/Vitamin D [Os-Talon 500MG + D] 1 tab PO BIDCM #60 tab Transmission Status: Pending to [facility] Primary Care Physician: Juanjose Chapman MD [Primary Care Provider] - Please follow up with your Primary Care Physician in: 1-2 weeks Test Results: Test results from this visit will be discussed in further detail at your follow- up appointment, if applicable. Please Follow Up With: Chandler Dinh MD When: 2 weeks Proposed Discharge Date: 09/23/18
--- NOTE | 2018-09-23 14:49 | DS.PCM_ITS ---
Discharge Date and Diagnosis Date of Admission: 09/21/18 Date of Discharge: 09/23/18 - Primary Discharge Diagnosis Tachycardia 2/2 cirrhosis, ascites, hypomagnesemia Pancytopenia 2/2 SLE and autoimmune hepatitis HTN Microcytic anemia with iron deficiency - Secondary Discharge Diagnosis Chronic Problems SLE (systemic lupus erythematosus related syndrome) (Chronic) Cirrhosis (Chronic) Autoimmune hepatitis (Chronic) Hospital Course and Treatment Imaging Results: CT/CTA Chest W/WO Contrast IMPRESSION: No evidence for PE. Low lung volumes and pulmonary density throughout the left upper lobe, please see comments above. CT/Abdomen/Pelvis without Cont IMPRESSION: 1. Diffuse ascites. 2. Sclerotic appearing liver with marked splenomegaly. 3. Gallstones without secondary evidence for acute cholecystitis. 4. Hiatal hernia. 5. Small right pleural effusion. 6. Anasarca. 7. Atherosclerotic changes of the abdominal aorta. 8. Degenerative changes of the thoracolumbar spine with multiple age indeterminate compression deformities. 9. Left renal cyst. RAD/Chest PA and Lateral IMPRESSION: Persistent infiltrate in the left upper lobe as described although there has been a moderate degree of improvement. Further follow-up is recommended. Echo: Interpretation Summary The estimated ejection fraction is 60 %. Stage 2 diastolic dysfunction. The left atrium is mildly enlarged. possible ASD Mild-Moderate (1-2+) mitral valve insufficiency. Pulmonary artery systolic pressure is 40 mmHg. Operations: None Procedures: 2-D Echocardiogram Summary of Care Provided: Hospital Course: The patient is a 63 year old F with pmhx of SLE, autoimmune hepatitis, cirrhosis, pancytopenia who was sent to the ER by her PCP as she was found to have tachycardia and she had been having increased LE edema and abdominal dis tention. In the ER she was in sinus tachy. CTA showed no PE, possible RAE density. CT abdomen showed diffuse ascites and other changes as above. CBC showed pancytopenic. No fever. She received IV abx in the ER with concern for pna - however at admission she was not felt to have an acute infectious process as she had no hypoxia, no cough, no fevers or chills. She was admitted to the PCU on tele. She was started on indural and spironolactone. Mag and K+ were repleted. Tachycardia resolved.. She did not want a paracentesis. Her tachy resolved. She was DCd home on indural and aldactone. She was advised to f.u with her PCP in 1-2 weeks and her GI physician (Allegra) in 1-2 weeks. This patient was seen by Georgi Lisa PA-C under the supervision of Dr. Senior. [] - Physical Exam General: Alert, Oriented x3, Cooperative HEENT: Atraumatic, PERRLA, EOMI, Normocephalic Neck: Supple, No JVD, Negative Carotid Bruits Lungs: Clear to auscultation, Normal air movement Cardiovascular: Regular rate, No murmurs Abdomen: Bowel Sounds Present, Soft, Non Tender, Distended Extremities: Capillary Refill Less than 3 Seconds, Edema - 1-2+ pitting edema BLE Skin: No rashes, No breakdown Musculoskeletal: No Tenderness to Palpation of Joints or Extremities Neurological: Cranial nerves II-XII grossly intact Psych/Mental Status: Normal Affect, Appropriate, Alert and oriented to time, place, person, mood and affect Vital Signs Temp Pulse Resp BP Pulse Ox 98.6 F 83 16 136/69 H 98 09/23/18 09:00 09/23/18 09:00 09/23/18 09:00 09/23/18 09:00 09/23/18 09:00 Oxygen Delivery Method Room Air Weight: 129 lb 3.054 oz Body Mass Index (BMI) 26.9 Intake and Output for Last 24 Hours 09/21/18 09/22/18 09/23/18 23:59 23:59 23:59 Intake Total 454 / 454 1265 / 1265 60 / 60 Balance 454 / 454 1265 / 1265 60 / 60 Laboratory Tests Past 24 Hrs 09/23/18 09/23/18 06:25 06:25 WBC 2.3 L RBC 3.74 L Hgb 9.0 L Hct 31.0 L MCV 82.9 MCH 24.1 L MCHC 29.0 L RDW 17.5 H RDW Differential 53.7 H Plt Count 75 L MPV 11.6 Immature Gran % (Auto) 0.400 Neut % (Auto) 75.5 H Lymph % (Auto) 13.2 L [place] % (Auto) 10.5 H Eos % (Auto) 0.4 Baso % (Auto) 0.0 Absolute Neuts (auto) 1.7 L Absolute Lymphs (auto) 0.30 L Total Counted Not Reportable Differential Comment COMMENT Diff Path Review May foll Sodium 143 Potassium 3.5 Chloride 112 H Carbon Dioxide 24.0 Anion Gap 7 BUN 12 Creatinine 0.43 L Estim Creat Clear Calc 125.28 Est GFR (MDRD) Af Amer 190 Est GFR (MDRD) Non-Af 157 BUN/Creatinine Ratio 27.7 H Glucose 72 L Calcium 7.7 L Discharge Diet: Low fat/ Low Cholesterol, 2000 mg Sodium Diet Discharge Activity: Return to Normal Activity Home Medications: Medications to take at Discharge Amlodipine [Norvasc] 5 mg PO DAILY 09/21/18 Prednisone 10 mg PO DAILY 09/21/18 Calcium Carb/Vitamin D [Os-Talon 500MG + D] 1 tab PO BIDCM #60 tab 09/23/18 Ferrous Sulfate 325 mg PO BIDCM #60 tab 09/23/18 Propranolol HCl [Inderal LA (Beta Dioni)] 80 mg PO DAILY #30 cap 09/23/18 Spironolactone [Aldactone] 25 mg PO BID #60 tab 09/23/18 Following Prescrptions Were Given to Patient: Spironolactone [Aldactone] 25 mg PO BID #60 tab Transmission Status: Received by [facility] Ferrous Sulfate 325 mg PO BIDCM #60 tab Transmission Status: Received by [facility] Propranolol HCl [Inderal LA (Beta Dioni)] 80 mg PO DAILY #30 cap Transmission Status: Received by [facility] Calcium Carb/Vitamin D [Os-Talon 500MG + D] 1 tab PO BIDCM #60 tab Transmission Status: Received by [facility] Primary Care Physician: Juanjose Chapman MD [Primary Care Provider] - Please follow up with your Primary Care Physician in: 1-2 weeks Please Follow Up With: Chandler Dinh MD When: 2 weeks Disposition: Home Minutes spent on discharge:: 35 Patient Condition:: Stable Medical Necessity - Tobacco Use Smoking Status: Former smoker Tobacco Use: Non-smoker Meaningful Use Info Meaningful Use Diagnoses (Choose all that apply): None applicable
[2018-09-26 14:26] LABS: Pathologist Review Reviewed
== END 2018-09-23 11:24 | disposition home or self-care (01) ==
LOC: ED 17:37 → PCU 20:43
PROVIDERS: Physician Assistant; Admitting Provider Internal Medicine; Emergency Provider Emergency Medicine; Family Provider Family Medicine; PCP Family Medicine; Referring Provider Internal Medicine; Visit Provider Internal Medicine
DX: R18.8 Other ascites (principal); K74.60 Unspecified cirrhosis of liver; M32.9 Systemic lupus erythematosus, unspecified; K75.4 Autoimmune hepatitis; D61.818 Other pancytopenia; E83.42 Hypomagnesemia; D50.9 Iron deficiency anemia, unspecified; I10 Essential (primary) hypertension; Z87.891 Personal history of nicotine dependence; Z79.899 Other long term (current) drug therapy; Z79.52 Long term (current) use of systemic steroids; I27.20 Pulmonary hypertension, unspecified; R06.02 Shortness of breath; I70.0 Atherosclerosis of aorta; K44.9 Diaphragmatic hernia without obstruction or gangrene
CPT/HCPCS: 36415; 71046; 71275; 74176; 80048; 80053; 80076; 83540; 83550; 83735; 83880; 84100; 84443; 84484; 85025; 85610; 85730; 87040; 93005; 93306; 96361; 96365; 96366; 96367; 96372; 99218; 99285; J1756; J7030; Q9967; A4216; G0378

== ENCOUNTER → 2018-10-28 14:53 | Outpatient (CLI) | payer OTHER, SELFPAY ==
[2018-09-21 23:11] VITALS: BMI 26.9
[2018-10-28 17:21] LABS: Hematocrit 42.9 % (37-47); Mean Corp Hgb Conc 30.3 g/dL (32-36); Mean Corpuscular Hgb 25.1 pg (27.0-32.0); Mean Corpuscular Volume 82.8 fL (81-99); POSITIVE MORPHOLOGY YES; Platelet Count 83 K/mm3 (150-450); RBC Distribution Width CV 20.1 % (11.6-14.6); RBC Distribution Width SD 59.4 fl (35.1-43.9); Red Blood Count 5.18 M/mm3 (4.2-5.4)
[2018-10-28 17:23] LABS: Scan Indicated on CBC? Y/N YES- FLAGS NOTED
[2018-10-28 17:46] LABS: ALB/GLOB Ratio 0.6 RATIO (0.9-2.4); AST(SGOT) 31 U/L (15-37); Alanine Aminotransfer ALT/SGPT 35 U/L (13-56); Alkaline Phosphatase 219 U/L (45-117); Anion Gap 7 (5-15); BUN 18 mg/dL (7-18); BUN/Creat Ratio 27.3 RATIO (10-20); Calcium,Total 8.8 mg/dL (8.5-10.1); Chloride 102 mmol/L (98-107); Creatinine, Serum 0.66 mg/dL (0.55-1.02); EST Glomerular Filtration Rate 96 mL/min (>60); Est Glom Filt Rate - Afr Amer 117 mL/min (>60); Globulin 5.1 g/dL (2.2-4.2); Glucose 93 mg/dL (74-106); Iron 42 ug/dL (50-170); Potassium 4.3 mmol/L (3.5-5.1); Protein, Total 8.1 g/dL (6.4-8.2); Sodium Level 137 mmol/L (136-145)
[2018-10-28 17:47] LABS: International Normalized Ratio 1.2; Prothrombin Time (Protime)PT. 15.1 SECONDS (11.7-14.9)
[2018-10-28 17:48] LABS: Partial Thromboplast Time 28.5 Seconds (24.1-36.2)
[2018-10-28 17:52] LABS: Differential Comment SCANNED
[2018-10-30 10:36] LABS: AFP, Tumor Marker 2.1 ng/mL (0.0-8.3)
== END ==
PROVIDERS: Family Provider Family Medicine; PCP Family Medicine; Referring Provider Internal Medicine Gastroenterology; Visit Provider Internal Medicine Gastroenterology
DX: K74.60 Unspecified cirrhosis of liver (principal)
CPT/HCPCS: 36415; 80053; 82105; 83540; 85027; 85610; 85730

== ENCOUNTER → 2018-12-19 13:54 | Outpatient (CLI) | payer OTHER, SELFPAY ==
[2018-09-21 23:11] VITALS: BMI 26.9
[2018-12-19 15:07] LABS: Absolute Lymphocyte Count 0.23 X10^3/uL (0.83-4.51); Basophil# 0.02 X10^3/uL; Basophil% 0.6 % (0-1); Differential Indicated SCAN CRITERIA MET; Eosinophil# 0.03 X10^3/uL; Eosinophils% 0.9 % (0-5); Hematocrit 40.9 % (37-47); Hemoglobin 12.4 g/dL (12.0-15.0); Lymphocyte # 0.23 X10^3/ul (4.0); Lymphocyte % 6.6 % (19-41); Mean Corp Hgb Conc 30.3 g/dL (32-36); Mean Corpuscular Hgb 25.9 pg (27.0-32.0); Mean Corpuscular Volume 85.6 fL (81-99); Monocyte# 0.17 X10^3/uL; Monocyte% 4.9 % (0-10); NRBC Flagged by Analyzer 0 % (0-5); Neutrophil # 2.98 X10^3/uL (2.7-7.7); Neutrophil % 86.1 % (47-70); POSITIVE DIFFERENTIAL YES; POSITIVE MORPHOLOGY YES; Platelet Count 71 K/mm3 (150-450); RBC Distribution Width CV 19.4 % (11.6-14.6); RBC Distribution Width SD 60.9 fl (35.1-43.9); Red Blood Count 4.78 M/mm3 (4.2-5.4); White Blood Count 3.5 K/mm3 (4.4-11.0)
[2018-12-19 15:28] LABS: ALB/GLOB Ratio 0.6 RATIO (0.9-2.4); AST(SGOT) 34 U/L (15-37); Alanine Aminotransfer ALT/SGPT 33 U/L (13-56); Albumin, Serum 2.9 g/dL (3.2-5.0); Alkaline Phosphatase 219 U/L (45-117); Anion Gap 6 (5-15); BUN 15 mg/dL (7-18); BUN/Creat Ratio 21.2 RATIO (10-20); Bilirubin, Direct 0.22 mg/dL (0.00-0.30); Calcium,Total 8.7 mg/dL (8.5-10.1); Chloride 105 mmol/L (98-107); Creatinine, Serum 0.71 mg/dL (0.55-1.02); EST Glomerular Filtration Rate 89 mL/min (>60); Est Glom Filt Rate - Afr Amer 108 mL/min (>60); Globulin 5.1 g/dL (2.2-4.2); Glucose 207 mg/dL (74-106); Potassium 4.6 mmol/L (3.5-5.1); Sodium Level 139 mmol/L (136-145)
== END ==
PROVIDERS: Family Provider Family Medicine; PCP Family Medicine; Referring Provider Internal Medicine Gastroenterology; Visit Provider Internal Medicine Gastroenterology
DX: K75.4 Autoimmune hepatitis (principal); D69.6 Thrombocytopenia, unspecified
CPT/HCPCS: 36415; 80053; 82248; 85025

== ENCOUNTER → 2018-12-29 14:04 | Outpatient (CLI) | payer OTHER, SELFPAY ==
[2018-09-21 23:11] VITALS: BMI 26.9
[2019-01-04 15:33] LABS: HPV APTIMA, High Risk Positive (Negative); HPV Reflexed? YES, CHARGE PATIENT
== END ==
PROVIDERS: Visit Provider Obstetrics & Gynecology
DX: Z12.4 Encounter for screening for malignant neoplasm of cervix (principal)
CPT/HCPCS: 87624; 88175; G0145

== ENCOUNTER → 2019-02-16 14:41 | Outpatient (CLI) | payer OTHER, SELFPAY ==
[2018-09-21 23:11] VITALS: BMI 26.9
--- NOTE | 2019-02-16 | IMM_PTH ---
PATIENT: JAKY PRESTON LOC: [facility] U#:[id number] AGE/SX: 69/F ROOM: RE02/16/[address]: Dr. Monroe Flower MD : 1955 BED: DIS: SPEC #: [id number] RECD: 02/17/19 14:15 STATUS: KULWANT RE #: [id number] LATHA: 02/16/19 00:[address]: Monroe Flower DEPT: IMMUNOHISTOCHEMISTRY RECD BY: Jaky Lopez Tissues: A - Uterine cervix, NOS Procedures: p16 (initial) KI-67 (add) PHYSICIAN & INSTITUTION [place] [id number] SPECIMEN INFORMATION: Tissue Source: A - Four-quadrant cervical biopsy Clinical Info: ASCUS, positive HPV Specimen Number: [id number] CPT code: 59950, 04006 METHODOLOGY: Deparaffinized sections of prefer/formalin-fixed tissue or PAP/DQ stained slides are incubated with monoclonal/polyclonal antibodies/oligonucleotide probes. Localization is made via biotin free immunoperoxidase method. Appropriate controls are performed and reacted as expected. Results on target cell population are indicated in the following table: RESULTS: ANTIBODY / CLONE RESULT Block A P16 (E6H4) negative Ki-67 (30-9) negative These tests were developed and their performance characteristics determined by [facility]. They may not have been cleared or approved by the U.S. Food and Drug Administration. The FDA has determined that such clearance or approval is not necessary. The above immunohistochemical/dualISH markers are ordered and reviewed by the Pathologist. INTERPRETATION: A. Four-quadrant cervical biopsy: No evidence of dysplasia AM:cc 02/20/19
--- NOTE | 2019-02-16 11:30 | CER_PTH ---
PATIENT: JAKY PRESTON LOC: [facility] U#:[id number] AGE/SX: 69/F ROOM: RE02/16/[address]: Dr. Monroe Flower MD : 1955 BED: DIS: SPEC #: [id number] RECD: 02/16/19 13:51 STATUS: KULWANT DAVID #: [id number] LATHA: 02/16/19 11:[address]: Monroe Flower DEPT: SURGICAL PATHOLOGY RECD BY: Jaky Lopez Tissues: A - Uterine cervix, NOS B - Endocervical Procedures: Special Stain Group II Surgery Specimen Level IV Iron Stain (control) HEADER OPERATION: Colposcopy PRE-OP DIAGNOSIS: ASCUS, positive HPV TISSUE SUBMITTED: A - Four quadrant cervical biopsy, B - ECC MICROSCOPIC DIAGNOSIS A. Cervix, four-quadrant biopsy: Focal HPV change suspected. Pigment laden macrophages consistent with remote hemorrhage. See comment. B. Endocervix, curettings: Strips of benign superficial endocervix No evidence of dysplasia. AM:roger 02/17/19 COMMENT A. Results from immunohistochemistry ([id number]) for surrogate HPV marker (p16) will be reported separately. Iron stain with matched control supports the above diagnosis. Case has been reviewed in consultation with Dr. Acosta who concurs with the above diagnosis. IDC:[id number] MICROSCOPIC DESCRIPTION Slides are reviewed. GROSS DESCRIPTION A - Received in fixative is one container labeled with the patient's name and designated four quadrant cervical biopsy. The specimen consists of multiple irregular fragments of light ramos soft tissue that in aggregate measure 1 x 0.2 x 0.1 cm. The specimen is totally submitted in one cassette. B - Received in fixative is one container labeled with the patient's name and designated ECC. The specimen consists of multiple fragments of ramos mucoid tissue that in aggregate measure 2 x 1 x 0.1 cm. The specimen is totally submitted in one cassette. / REJI:roger 02/16/19 TC:3 CPT: 35145 x2, 16172
== END ==
PROVIDERS: Referring Provider Obstetrics & Gynecology; Visit Provider Obstetrics & Gynecology
DX: R87.619 Unspecified abnormal cytological findings in specimens from cervix uteri (principal)
CPT/HCPCS: 88305; 88313; 88341; 88342

== ENCOUNTER → 2019-07-26 12:25 | Outpatient (CLI) | payer OTHER, SELFPAY ==
[2018-09-21 23:11] VITALS: BMI 26.9
[2019-07-26 15:27] LABS: Hematocrit 43.8 % (37-47); Hemoglobin 13.6 g/dL (12.0-15.0); Mean Corp Hgb Conc 31.1 g/dL (32-36); Mean Corpuscular Hgb 28.6 pg (27.0-32.0); Mean Corpuscular Volume 92.2 fL (81-99); Mean Platelet Vol. 10.9 fl (6.2-12.0); POSITIVE COUNT YES; Platelet Count 58 K/mm3 (150-450); RBC Distribution Width CV 15.8 % (11.6-14.6); RBC Distribution Width SD 53.2 fl (35.1-43.9); Red Blood Count 4.75 M/mm3 (4.2-5.4); White Blood Count 5.2 K/mm3 (4.4-11.0)
[2019-07-26 15:28] LABS: Scan Indicated on CBC? Y/N YES- FLAGS NOTED
[2019-07-26 15:45] LABS: Hemoglobin A1c 7.9 % (4.2-6.3)
[2019-07-26 15:52] LABS: ALB/GLOB Ratio 0.6 RATIO (0.9-2.4); AST(SGOT) 50 U/L (15-37); Alanine Aminotransfer ALT/SGPT 72 U/L (13-56); Albumin, Serum 3.2 g/dL (3.2-5.0); Alkaline Phosphatase 204 U/L (45-117); Anion Gap 7 (5-15); BUN 23 mg/dL (7-18); BUN/Creat Ratio 30.2 RATIO (10-20); Chloride 109 mmol/L (98-107); Creatinine, Serum 0.76 mg/dL (0.55-1.02); EST Glomerular Filtration Rate 82 mL/min (>60); Est Glom Filt Rate - Afr Amer 99 mL/min (>60); Globulin 5.4 g/dL (2.2-4.2); Glucose 139 mg/dL (74-106); Protein, Total 8.6 g/dL (6.4-8.2); Sodium Level 141 mmol/L (136-145)
[2019-07-26 17:18] LABS: International Normalized Ratio 1.1; Prothrombin Time (Protime)PT. 13.6 SECONDS (11.7-14.9)
[2019-07-26 17:19] LABS: Partial Thromboplast Time 25.5 Seconds (24.1-36.2)
[2019-07-28 17:59] LABS: AFP, Tumor Marker 2.6 ng/mL (0.0-8.3)
== END ==
PROVIDERS: PCP Family Medicine; Referring Provider Internal Medicine Gastroenterology; Visit Provider Internal Medicine Gastroenterology
DX: K74.60 Unspecified cirrhosis of liver (principal)
CPT/HCPCS: 36415; 80053; 82105; 83036; 85027; 85610; 85730

== ENCOUNTER → 2020-01-22 14:21 | Outpatient (CLI) | payer OTHER, SELFPAY ==
[2018-09-21 23:11] VITALS: BMI 26.9
[2020-01-22 17:44] LABS: Hematocrit 41.3 % (37-47); Hemoglobin 12.6 g/dL (12.0-15.0); Mean Corp Hgb Conc 30.5 g/dL (32-36); Mean Corpuscular Hgb 27.9 pg (27.0-32.0); Mean Corpuscular Volume 91.6 fL (81-99); Mean Platelet Vol. 12.1 fl (6.2-12.0); POSITIVE COUNT YES; Platelet Count 73 K/mm3 (150-450); RBC Distribution Width CV 14.8 % (11.6-14.6); Red Blood Count 4.51 M/mm3 (4.2-5.4)
[2020-01-22 17:56] LABS: International Normalized Ratio 1.1; Prothrombin Time (Protime)PT. 14.2 SECONDS (11.7-14.9)
[2020-01-22 17:57] LABS: Partial Thromboplast Time 25.9 Seconds (24.1-36.2)
[2020-01-22 18:31] LABS: ALB/GLOB Ratio 0.6 RATIO (0.9-2.4); AST(SGOT) 45 U/L (15-37); Alanine Aminotransfer ALT/SGPT 64 U/L (13-56); Albumin, Serum 3.2 g/dL (3.2-5.0); Alkaline Phosphatase 198 U/L (45-117); Anion Gap 6 (5-15); BUN 30 mg/dL (7-18); BUN/Creat Ratio 40.5 RATIO (10-20); Calcium,Total 8.7 mg/dL (8.5-10.1); Chloride 108 mmol/L (98-107); Cholesterol 232 mg/dL (200); Creatinine, Serum 0.74 mg/dL (0.55-1.02); EST Glomerular Filtration Rate 84 mL/min (>60); Est Glom Filt Rate - Afr Amer 102 mL/min (>60); Globulin 5.8 g/dL (2.2-4.2); Glucose 140 mg/dL (74-106); High Density Lipoprotein 43 mg/dL; Sodium Level 137 mmol/L (136-145); Triglycerides 152 mg/dL; Very Low Density Lipoprotein 30 mg/dL (5-40)
[2020-01-22 18:36] LABS: Scan Indicated on CBC? Y/N YES- FLAGS NOTED
[2020-01-24 08:14] LABS: AFP, Tumor Marker 1.8 ng/mL (0.0-8.3)
== END ==
PROVIDERS: PCP Family Medicine; Referring Provider Internal Medicine Gastroenterology; Visit Provider Internal Medicine Gastroenterology
DX: K74.60 Unspecified cirrhosis of liver (principal)
CPT/HCPCS: 36415; 80053; 80061; 82105; 85027; 85610; 85730

== ENCOUNTER → 2020-05-08 | Outpatient (CLI) | payer OTHER, SELFPAY ==
[2018-09-21 23:11] VITALS: BMI 26.9
[2020-05-13 20:58] LABS: HPV APTIMA, High Risk Positive (Negative)
[2020-05-13 20:59] LABS: HPV Reflexed? YES, CHARGE PATIENT
== END | disposition home or self-care (01) ==
LOC: LABSPEC 11:53
PROVIDERS: PCP Family Medicine; Visit Provider Obstetrics & Gynecology
DX: Z12.4 Encounter for screening for malignant neoplasm of cervix (principal)
CPT/HCPCS: 87624; 88175; G0145

== ENCOUNTER → 2020-05-28 14:11 | Outpatient (CLI) | payer MEDICARE, SELFPAY ==
[2018-09-21 23:11] VITALS: BMI 26.9
[2020-05-28 15:32] LABS: Absolute Lymphocyte Count 0.21 X10^3/uL (0.83-4.51); Absolute Neutrophil Count 3.5 X10^3/uL (2.0-7.7); Basophil# 0.01 X10^3/uL; Basophil% 0.3 % (0-1); Hematocrit 40.5 % (37-47); Hemoglobin 12.4 g/dL (12.0-15.0); Lymphocyte # 0.21 X10^3/ul (4.0); Lymphocyte % 5.4 % (19-41); Mean Corp Hgb Conc 30.6 g/dL (32-36); Mean Corpuscular Hgb 27.9 pg (27.0-32.0); Mean Corpuscular Volume 91.2 fL (81-99); Monocyte# 0.14 X10^3/uL; Monocyte% 3.6 % (0-10); NRBC Flagged by Analyzer 0 % (0-5); Neutrophil # 3.51 X10^3/uL (2.7-7.7); Neutrophil % 89.9 % (47-70); POSITIVE COUNT YES; POSITIVE DIFFERENTIAL YES; Platelet Count 62 K/mm3 (150-450); RBC Distribution Width CV 15.2 % (11.6-14.6); RBC Distribution Width SD 50.4 fl (35.1-43.9); Red Blood Count 4.44 M/mm3 (4.2-5.4); White Blood Count 3.9 K/mm3 (4.4-11.0)
[2020-05-28 15:39] LABS: International Normalized Ratio 1.2; Prothrombin Time (Protime)PT. 14.7 SECONDS (11.7-14.9)
[2020-05-28 15:49] LABS: Differential Indicated SCAN CRITERIA MET
[2020-05-28 16:00] LABS: Differential Comment SCANNED; Platelet Estimate MOD DEC (ADEQ)
[2020-05-28 16:10] LABS: AST(SGOT) 33 U/L (15-37); Alanine Aminotransfer ALT/SGPT 53 U/L (13-56); Albumin, Serum 3.1 g/dL (3.2-5.0); Alkaline Phosphatase 186 U/L (45-117); Bilirubin, Direct 0.18 mg/dL (0.00-0.30); Globulin 5.6 g/dL (2.2-4.2); Protein, Total 8.7 g/dL (6.4-8.2)
[2020-05-29 11:36] LABS: Pathologist Review Reviewed
[2020-05-29 15:20] LABS: Anion Gap 6 (5-15); BUN 26 mg/dL (7-18); BUN/Creat Ratio 36.3 RATIO (10-20); Calcium,Total 9.2 mg/dL (8.5-10.1); Chloride 105 mmol/L (98-107); Creatinine, Serum 0.72 mg/dL (0.55-1.02); EST Glomerular Filtration Rate 87 mL/min (>60); Est Glom Filt Rate - Afr Amer 106 mL/min (>60); Glucose 166 mg/dL (74-106); Potassium 4.6 mmol/L (3.5-5.1); Sodium Level 138 mmol/L (136-145)
[2020-05-30 10:40] LABS: AFP, Tumor Marker 1.8 ng/mL (0.0-8.3)
== END ==
PROVIDERS: PCP Family Medicine
DX: K74.60 Unspecified cirrhosis of liver (principal); K75.4 Autoimmune hepatitis
CPT/HCPCS: 36415; 80048; 80076; 82105; 85025; 85610

== ENCOUNTER → 2020-06-05 08:43 | Outpatient (CLI) | payer MEDICARE, SELFPAY ==
[2018-09-21 23:11] VITALS: BMI 26.9
--- NOTE | 2020-06-05 09:05 | US_ITS ---
STUDY: ABDOMINAL ULTRASOUND - RIGHT UPPER QUADRANT REASON FOR VISIT: Female, 64 years old CIRRHOSIS . History of autoimmune hepatitis. TECHNIQUE: Ultrasound evaluation of the right upper quadrant was performed with real-time and static campos-scale imaging. TECHNICAL QUALITY: Adequate. COMPARISON: None. FINDINGS: Liver: The liver measures 12.6 cm. There is a heterogeneous echogenicity of the liver. The bile ducts are mildly dilated. There is hepatic color flow. The direction of portal flow is hepatopetal. There is no demonstrated mass lesion. Gallbladder: Normal distended gallbladder. The gallbladder wall is thickened and measures 5 mm. There is a negative sonographic Hall''s sign. There is no pericholecystic fluid. There are multiple echogenic structures within the gallbladder, consistent with multiple gallstones. Common Bile Duct (C.B.D.): The common bile duct measures 5 mm. Pancreas: Normal size of the head, body and tail of the pancreas. There is normal echogenicity of the pancreas. There is no demonstrated pancreatic mass or cyst. Right Kidney: Normal size of the right kidney. The right kidney measures 9.6 cm x 5.5 cm x 4.6 cm. Normal renal cortex. The right cortex measures 1. cm. There is no demonstrated renal mass or cyst. There is no right hydronephrosis. US/Liver IMPRESSION: Multiple gallstones. Thickened gallbladder wall. Heterogeneous appearance of the liver parenchyma with mild dilatation of the intrahepatic biliary ducts. Small amount of fluid is seen surrounding the pancreatic head. Electronically Signed: Umer Meier MD at 11:28 EDT , Service support ,
== END ==
PROVIDERS: PCP Family Medicine; Referring Provider Internal Medicine Gastroenterology; Visit Provider Internal Medicine Gastroenterology
DX: K74.60 Unspecified cirrhosis of liver (principal)
CPT/HCPCS: 76705

== ENCOUNTER → 2020-10-05 11:35 | Outpatient (CLI) | payer MEDICARE, SELFPAY ==
[2018-09-21 23:11] VITALS: BMI 26.9
[2020-10-05 12:52] LABS: Erythrocyte Sedimentation Rate 46 mm/hr (0-30)
[2020-10-05 12:56] LABS: Absolute Lymphocyte Count 0.24 X10^3/uL (0.83-4.51); Absolute Neutrophil Count 3.8 X10^3/uL (2.0-7.7); Basophil# 0.03 X10^3/uL; Basophil% 0.7 % (0-1); Eosinophil# 0.01 X10^3/uL; Eosinophils% 0.2 % (0-5); Hematocrit 40.8 % (37-47); Hemoglobin 12.5 g/dL (12.0-15.0); Lymphocyte # 0.24 X10^3/ul (0.83-4.51); Lymphocyte % 5.5 % (19-41); Mean Corp Hgb Conc 30.6 g/dL (32-36); Mean Corpuscular Hgb 27.2 pg (27.0-32.0); Mean Corpuscular Volume 88.9 fL (81-99); Mean Platelet Vol. 11.5 fl (6.2-12.0); Monocyte# 0.28 X10^3/uL; Monocyte% 6.4 % (0-10); NRBC Flagged by Analyzer 0 % (0-5); Neutrophil # 3.75 X10^3/uL (2.7-7.7); Neutrophil % 85.4 % (47-70); POSITIVE COUNT YES; POSITIVE DIFFERENTIAL YES; Platelet Count 63 K/mm3 (150-450); RBC Distribution Width CV 15.1 % (11.6-14.6); RBC Distribution Width SD 49.3 fl (35.1-43.9); Red Blood Count 4.59 M/mm3 (4.2-5.4)
[2020-10-05 12:58] LABS: Differential Indicated SCAN CRITERIA MET
[2020-10-05 13:06] LABS: AST(SGOT) 33 U/L (15-37); Alanine Aminotransfer ALT/SGPT 58 U/L (13-56); BUN 24 mg/dL (7-18); Creatinine, Serum 0.74 mg/dL (0.55-1.02); EST Glomerular Filtration Rate 84 mL/min (>60); Est Glom Filt Rate - Afr Amer 102 mL/min (>60); Uric Acid 3.6 mg/dL (2.6-6.0)
[2020-10-05 13:29] LABS: Platelet Estimate MKD DEC (ADEQ)
[2020-10-05 13:32] LABS: White Blood Count 4.4 K/mm3 (4.4-11.0)
[2020-10-07 10:20] LABS: Hepatitis B Surface Antibody Non-Reactive; Hepatitis B Surface Antigen Non-Reactive (Nonreactive); Hepatitis C Antibody Non-Reactive (Nonreactive)
[2020-10-09 05:07] LABS: Complement C3 91 mg/dL (82-167); QNTFERON TB Mitogen Value 4.36 IU/mL (.); QNTFERON TB Nil Value 0.06 IU/mL (.); QNTFERON TB1+ Ag Value 0.06 IU/mL (.); QNTFERON TB2+ Ag Value 0.06 IU/mL (.)
[2020-10-09 09:50] LABS: Hepatitis B Core Ab Total Negative (Negative)
[2020-10-09 09:51] LABS: CCP IgG Antibodies 7 units (0-19); QNTIFERON TB Positive Criteria Negative (Negative)
== END ==
PROVIDERS: PCP Family Medicine
DX: M32.9 Systemic lupus erythematosus, unspecified (principal)
CPT/HCPCS: 36415; 81001; 82565; 84450; 84460; 84520; 84550; 85025; 85652; 86038; 86140; 86160; 86200; 86225; 86235; 86431; 86480; 86704; 86706; 86803; 87340

== ENCOUNTER → 2020-10-07 14:09 | Outpatient (CLI) | payer MEDICARE, SELFPAY ==
[2018-09-21 23:11] VITALS: BMI 26.9
[2020-10-07 14:17] LABS: Mucous, Urine 0 SEEN /hpf (<or=2+); Red Blood Cells-Urine 0 SEEN /hpf (0-5); Squamous Epithelial Cells - UA 0 SEEN /hpf (5-10)
--- NOTE | 2020-10-07 14:26 | RAD_ITS ---
STUDY: X-RAY - RIGHT HAND REASON FOR EXAM: Female, 65 years old. LUPUS TECHNIQUE: 2 view(s) of the hand. COMPARISON: Comparison is made with prior study dated 05/31/2017. FINDINGS: Normal radiocarpal articulation. Normal distal radioulnar joint. Normal visualized carpal bones. Normal carpal articulations Normal carpometacarpal articulation of the thumb. Normal second through fifth carpometacarpal joints. Normal metacarpi. Normal metacarpophalangeal joint of the thumb. Normal interphalangeal joint of the thumb. Normal proximal and distal phalanges of the thumb. There is degenerative arthrosis of the metacarpophalangeal (MCP) joints. There is diffuse articular joint space narrowing of the proximal and distal interphalangeal joints of the second through fifth fingers, but without erosive changes or periarticular soft tissue swelling. Normal phalanges of the second through fifth fingers. Soft tissue swelling. RAD/Hand 2 Views IMPRESSION: Degenerative joint disease of the hand, as described above. Soft tissue swelling. Electronically Signed: Umer Meier MD at 14:22 EDT , Service support ,
--- NOTE | 2020-10-07 14:26 | RAD_ITS ---
STUDY: X-RAY - LEFT HAND REASON FOR EXAM: Female, 65 years old. LUPUS TECHNIQUE: 2 view(s) of the hand. COMPARISON: None. FINDINGS: Normal radiocarpal articulation. Normal distal radioulnar joint. Normal visualized carpal bones. Normal carpal articulations There is degenerative arthrosis of the carpometacarpal (CMC) articulation of the thumb. Normal second through fifth carpometacarpal joints. Normal metacarpi. Normal metacarpophalangeal joint of the thumb. Normal interphalangeal joint of the thumb. Normal proximal and distal phalanges of the thumb. There is degenerative arthrosis of the metacarpophalangeal (MCP) joints. Flexion deformity of the second through fifth metacarpal phalangeal joint. There is diffuse articular joint space narrowing of the proximal and distal interphalangeal joints of the second through fifth fingers, but without erosive changes or periarticular soft tissue swelling. Normal phalanges of the second through fifth fingers. Soft tissue swelling. RAD/Hand 2 Views IMPRESSION: Soft tissue swelling as well as degenerative changes as described. Electronically Signed: Umer Meier MD at 14:21 EDT , Service support ,
[2020-10-07 17:54] LABS: Color, Urine Yellow (Yellow); Glucose, Dipstick 250 mg/dl (Normal); Ketone-Dipstick 5 mg/dl (Negative); Leukocyte Esterase-Dipstick 100 /ul (Negative); Nitrite-Dipstick Negative (Negative); Occult Blood-Urine Negative /ul (Negative); Protein-Dipstick Negative (Negative); Urine Bilirubin Dipstick Negative (Negative); Urine Clarity Clear (Clear); Urine Urobilinogen Normal (Normal)
[2020-10-07 18:05] LABS: Bacteria 1+ /hpf (None Seen); Hyaline Cast 0-5 SEEN /lpf (0-5); White Blood Cells 5-10 SEEN /hpf (0-5)
== END ==
PROVIDERS: PCP Family Medicine
DX: M32.9 Systemic lupus erythematosus, unspecified (principal)
CPT/HCPCS: 73120; 81001

== ENCOUNTER → 2020-11-29 10:01 | Outpatient (CLI) | payer MEDICARE, SELFPAY ==
[2020-11-29 11:46] LABS: International Normalized Ratio 1.1
[2020-11-29 12:16] LABS: AST(SGOT) 29 U/L (15-37); Alanine Aminotransfer ALT/SGPT 58 U/L (13-56); Albumin, Serum 2.8 g/dL (3.2-5.0); Alkaline Phosphatase 189 U/L (45-117); Anion Gap 3 (5-15); BUN 22 mg/dL (7-18); BUN/Creat Ratio 29.3 RATIO (10-20); Bilirubin, Direct 0.17 mg/dL (0.00-0.30); Chloride 106 mmol/L (98-107); Creatinine, Serum 0.75 mg/dL (0.55-1.02); EST Glomerular Filtration Rate 82 mL/min (>60); Est Glom Filt Rate - Afr Amer 100 mL/min (>60); Globulin 5.6 g/dL (2.2-4.2); Glucose 101 mg/dL (74-106); Phosphorus 3.3 mg/dL (2.5-4.9); Potassium 3.9 mmol/L (3.5-5.1); Protein, Total 8.4 g/dL (6.4-8.2); Sodium Level 139 mmol/L (136-145)
[2020-12-01 07:53] LABS: AFP, Tumor Marker 2.2 ng/mL (0.0-8.3)
== END ==
PROVIDERS: PCP Family Medicine
DX: K75.4 Autoimmune hepatitis (principal); K74.60 Unspecified cirrhosis of liver
CPT/HCPCS: 36415; 80048; 80076; 82105; 84100; 85610

== ENCOUNTER → 2020-12-10 10:12 | Outpatient (CLI) | payer MEDICARE, SELFPAY ==
--- NOTE | 2020-12-10 10:15 | US_ITS ---
STUDY: ABDOMINAL ULTRASOUND - RIGHT UPPER QUADRANT REASON FOR VISIT: Female, 65 years old HCC surveillance. TECHNIQUE: Ultrasound evaluation of the right upper quadrant was performed with real-time and static campos-scale imaging. TECHNICAL QUALITY: Adequate. COMPARISON: Comparison is made with prior examination dated 06/05/2020. FINDINGS: Liver: The liver measures 12.5 cm. There is a heterogeneous echogenicity of the liver. The bile ducts are within normal limits. There is hepatic color flow. The direction of portal flow is hepatopetal. There is no demonstrated mass lesion. Gallbladder: Normal distended gallbladder. The gallbladder wall is thickened and measures 4.4 mm. There is a negative sonographic Hall''s sign. There is no pericholecystic fluid. There are multiple echogenic structures within the gallbladder, consistent with multiple gallstones. Common Bile Duct (C.B.D.): The common bile duct measures 3.9 mm. Pancreas: Normal size of the head, body and tail of the pancreas. There is normal echogenicity of the pancreas. There is no demonstrated pancreatic mass or cyst. Right Kidney: Normal size of the right kidney. The right kidney measures 10.6 cm x 4 cm x 4.4 cm. Normal renal cortex. The right cortex measures 1.1 cm. There is no demonstrated renal mass or cyst. There is no right hydronephrosis. US/Liver IMPRESSION: Heterogeneous echotexture of the liver. Multiple gallstones. Thickened gallbladder wall. Electronically Signed: Umer Meier MD at 13:26 EDT , Service support ,
== END ==
PROVIDERS: PCP Family Medicine
DX: K75.4 Autoimmune hepatitis (principal); K74.60 Unspecified cirrhosis of liver
CPT/HCPCS: 76705

== ENCOUNTER → 2021-01-02 13:25 | Outpatient (CLI) | payer MEDICARE, SELFPAY ==
[2021-01-07 08:32] LABS: HPV APTIMA, High Risk Positive (Negative); HPV Reflexed? YES, CHARGE PATIENT
== END ==
PROVIDERS: PCP Family Medicine; Visit Provider Obstetrics & Gynecology
DX: R87.810 Cervical high risk human papillomavirus (HPV) DNA test positive (principal); Z78.0 Asymptomatic menopausal state
CPT/HCPCS: 87624; 88175; G0145

== ENCOUNTER → 2021-03-12 14:11 | Outpatient (CLI) | payer MEDICARE, SELFPAY ==
[2021-03-12 14:18] LABS: Bacteria 0 SEEN /hpf (None Seen); Mucous, Urine 0 SEEN /hpf (<or=2+); Red Blood Cells-Urine 0 SEEN /hpf (0-5)
[2021-03-12 18:07] LABS: Absolute Lymphocyte Count 0.36 X10^3/uL (0.83-4.51); Absolute Neutrophil Count 5.5 X10^3/uL (2.0-7.7); Basophil# 0.02 X10^3/uL; Basophil% 0.3 % (0-1); Hematocrit 43.2 % (37-47); Hemoglobin 13.7 g/dL (12.0-15.0); Lymphocyte # 0.36 X10^3/ul (0.83-4.51); Lymphocyte % 5.8 % (19-41); Mean Corp Hgb Conc 31.7 g/dL (32-36); Mean Corpuscular Volume 88.2 fL (81-99); Mean Platelet Vol. 12.1 fl (6.2-12.0); Monocyte# 0.21 X10^3/uL; Monocyte% 3.4 % (0-10); NRBC Flagged by Analyzer 0 % (0-5); Neutrophil # 5.52 X10^3/uL (2.7-7.7); Neutrophil % 89.7 % (47-70); POSITIVE COUNT YES; POSITIVE DIFFERENTIAL YES; Platelet Count 74 K/mm3 (150-450); RBC Distribution Width CV 14.3 % (11.6-14.6); RBC Distribution Width SD 45.8 fl (35.1-43.9); White Blood Count 6.2 K/mm3 (4.4-11.0)
[2021-03-12 18:08] LABS: Color, Urine Yellow (Yellow); Glucose, Dipstick 100 mg/dl (Normal); Ketone-Dipstick 5 mg/dl (Negative); Leukocyte Esterase-Dipstick 500 /ul (Negative); Nitrite-Dipstick Negative (Negative); Occult Blood-Urine Negative /ul (Negative); Protein-Dipstick 15 mg/dl (Negative); Specific Gravity, Urine 1.025 (1.002-1.030); Urine Bilirubin Dipstick Negative (Negative); Urine Clarity Clear (Clear); Urine Urobilinogen Normal (Normal)
[2021-03-12 18:14] LABS: Differential Indicated SCAN CRITERIA MET
[2021-03-12 18:17] LABS: Hyaline Cast 0-5 SEEN /lpf (0-5); Renal Epithelial Cells 0-5 SEEN /hpf (0-5); Squamous Epithelial Cells - UA 0-5 SEEN /hpf (5-10); White Blood Cells 0-5 SEEN /hpf (0-5)
[2021-03-12 18:24] LABS: AST(SGOT) 40 U/L (15-37); Alanine Aminotransfer ALT/SGPT 62 U/L (13-56); Creatinine, Serum 0.89 mg/dL (0.55-1.02); EST Glomerular Filtration Rate 68 mL/min (>60); Est Glom Filt Rate - Afr Amer 82 mL/min (>60)
[2021-03-12 19:17] LABS: Differential Comment SCANNED
[2021-03-13 01:39] LABS: Erythrocyte Sedimentation Rate 70 mm/hr (0-30)
[2021-03-14 10:08] LABS: Complement C3 104 mg/dL (82-167)
[2021-03-14 13:07] LABS: Anti-Scleroderma-70 AB <0.2 AI (0.0-0.9)
[2021-03-14 23:37] LABS: Anti-Centromere B Ab <0.2 AI (0.0-0.9); Anti-dsDNA Ab 3 IU/mL (0-9)
== END ==
PROVIDERS: PCP Family Medicine
DX: M32.9 Systemic lupus erythematosus, unspecified (principal)
CPT/HCPCS: 36415; 81001; 82565; 84450; 84460; 85025; 85652; 86140; 86160; 86225; 86235

== ENCOUNTER 2021-06-06 16:01 | Outpatient (CLI) | payer MEDICARE, SELFPAY ==
[2021-06-06 17:39] LABS: Hematocrit 42.4 % (37-47); Hemoglobin 13.6 g/dL (12.0-15.0); International Normalized Ratio 1.1; Mean Corp Hgb Conc 32.1 g/dL (32-36); Mean Corpuscular Hgb 28.5 pg (27.0-32.0); Mean Corpuscular Volume 88.7 fL (81-99); Mean Platelet Vol. 12.7 fl (6.2-12.0); POSITIVE COUNT YES; Partial Thromboplast Time 24.9 Seconds (24.1-36.2); Platelet Count 74 K/mm3 (150-450); Prothrombin Time (Protime)PT. 13.9 SECONDS (11.7-14.9); RBC Distribution Width CV 15.2 % (11.6-14.6); RBC Distribution Width SD 49.9 fl (35.1-43.9); Red Blood Count 4.78 M/mm3 (4.2-5.4); White Blood Count 5.2 K/mm3 (4.4-11.0)
[2021-06-06 18:03] LABS: Scan Indicated on CBC? Y/N YES- FLAGS NOTED
[2021-06-06 18:27] LABS: ALB/GLOB Ratio 0.6 RATIO (0.9-2.4); AST(SGOT) 29 U/L (15-37); Alanine Aminotransfer ALT/SGPT 51 U/L (13-56); Albumin, Serum 3.3 g/dL (3.2-5.0); Alkaline Phosphatase 334 U/L (45-117); Anion Gap 6 (5-15); BUN 29 mg/dL (7-18); BUN/Creat Ratio 39.5 RATIO (10-20); Calcium,Total 8.7 mg/dL (8.5-10.1); Chloride 103 mmol/L (98-107); Creatinine, Serum 0.73 mg/dL (0.55-1.02); EST Glomerular Filtration Rate 85 mL/min (>60); Est Glom Filt Rate - Afr Amer 102 mL/min (>60); Globulin 5.1 g/dL (2.2-4.2); Glucose 236 mg/dL (74-106); Potassium 4.5 mmol/L (3.5-5.1); Protein, Total 8.4 g/dL (6.4-8.2); Sodium Level 137 mmol/L (136-145)
[2021-06-06 18:49] LABS: Differential Comment SCANNED
[2021-06-08 09:22] LABS: AFP, Tumor Marker 1.8 ng/mL (0.0-9.2)
== END 2021-06-06 23:59 | disposition home or self-care (01) ==
LOC: MTLAB 16:02
PROVIDERS: PCP Family Medicine; Referring Provider Internal Medicine Gastroenterology; Visit Provider Internal Medicine Gastroenterology
DX: K74.60 Unspecified cirrhosis of liver (principal)
CPT/HCPCS: 36415; 80053; 82105; 85027; 85610; 85730

== ENCOUNTER 2021-06-13 08:22 | Outpatient (CLI) | payer MEDICARE, SELFPAY ==
--- NOTE | 2021-06-13 08:28 | US_ITS ---
STUDY: ABDOMINAL ULTRASOUND - RIGHT UPPER QUADRANT REASON FOR VISIT: Female, 65 years old CIRRHOSIS TECHNIQUE: Ultrasound evaluation of the right upper quadrant was performed with real-time and static campos-scale imaging. TECHNICAL QUALITY: Adequate. COMPARISON: Comparison is made with prior study dated 12/10/2020. FINDINGS: Liver: The liver measures 12.9 cm. There is a heterogeneous echogenicity of the liver. The bile ducts are within normal limits. There is hepatic color flow. The direction of portal flow is hepatopetal. There is no demonstrated mass lesion. Gallbladder: Normal distended gallbladder. The gallbladder wall is slightly thickened and measures 4 mm. There is a negative sonographic Hall''s sign. There is no pericholecystic fluid. There is a solitary echogenic gallstone within the gallbladder. Common Bile Duct (C.B.D.): The common bile duct measures 4.3 mm. Pancreas: Normal size of the head, body and tail of the pancreas. There is normal echogenicity of the pancreas. There is no demonstrated pancreatic mass or cyst. Right Kidney: Normal size of the right kidney. The right kidney measures 9.9 cm x 4.9 cm x 5.3 cm. Normal renal cortex. The right cortex measures 1.5 cm. There is no demonstrated renal mass or cyst. There is no right hydronephrosis. US/Abdomen Limited IMPRESSION: Stable heterogeneous echotexture of the liver. Thickened gallbladder wall. Solitary gallstone. Electronically Signed: Umer Meier MD at 10:36 EDT ,
== END 2021-06-13 23:59 | disposition home or self-care (01) ==
LOC: US 08:23
PROVIDERS: PCP Family Medicine; Referring Provider Internal Medicine Gastroenterology; Visit Provider Internal Medicine Gastroenterology
DX: K74.60 Unspecified cirrhosis of liver (principal)
CPT/HCPCS: 76705

== ENCOUNTER 2021-08-25 13:51 | Outpatient (RCR) | payer MEDICARE, SELFPAY ==
[2021-08-25 15:25] LABS: Absolute Lymphocyte Count 0.18 X10^3/uL (0.83-4.51); Absolute Neutrophil Count 3.8 X10^3/uL (2.0-7.7); Basophil# 0.02 X10^3/uL; Basophil% 0.5 % (0-1); Hemoglobin 12.8 g/dL (12.0-15.0); Lymphocyte # 0.18 X10^3/ul (0.83-4.51); Lymphocyte % 4.2 % (19-41); Mean Corp Hgb Conc 31.2 g/dL (32-36); Mean Corpuscular Hgb 27.6 pg (27.0-32.0); Mean Corpuscular Volume 88.6 fL (81-99); Mean Platelet Vol. 12.7 fl (6.2-12.0); NRBC Flagged by Analyzer 0 % (0-5); Neutrophil # 3.77 X10^3/uL (2.7-7.7); Neutrophil % 87.4 % (47-70); POSITIVE COUNT YES; POSITIVE DIFFERENTIAL YES; Platelet Count 68 K/mm3 (150-450); RBC Distribution Width CV 14.8 % (11.6-14.6); RBC Distribution Width SD 48.1 fl (35.1-43.9); Red Blood Count 4.63 M/mm3 (4.2-5.4); White Blood Count 4.3 K/mm3 (4.4-11.0)
[2021-08-25 15:30] LABS: International Normalized Ratio 1.1
[2021-08-25 15:31] LABS: Partial Thromboplast Time 26.3 Seconds (24.1-36.2)
[2021-08-25 15:33] LABS: Differential Indicated SCAN CRITERIA MET
[2021-08-25 16:15] LABS: ALB/GLOB Ratio 0.6 RATIO (0.9-2.4); AST(SGOT) 33 U/L (15-37); Alanine Aminotransfer ALT/SGPT 43 U/L (13-56); Alkaline Phosphatase 207 U/L (45-117); Anion Gap 6 (5-15); BUN 29 mg/dL (7-18); BUN/Creat Ratio 34.5 RATIO (10-20); Bilirubin, Direct 0.24 mg/dL (0.00-0.30); Calcium,Total 9.4 mg/dL (8.5-10.1); Chloride 105 mmol/L (98-107); Creatinine, Serum 0.84 mg/dL (0.55-1.02); EST Glomerular Filtration Rate 72 mL/min (>60); Est Glom Filt Rate - Afr Amer 87 mL/min (>60); Glucose 168 mg/dL (74-106); Potassium 4.5 mmol/L (3.5-5.1); Sodium Level 136 mmol/L (136-145)
[2021-08-26 13:09] LABS: Pathologist Review Reviewed
[2021-08-28 17:14] LABS: AFP, Tumor Marker 1.7 ng/mL (0.0-9.2)
== END 2021-09-11 16:00 | disposition home or self-care (01) ==
LOC: MTLAB 13:51
PROVIDERS: PCP Family Medicine
DX: K75.4 Autoimmune hepatitis (principal); K74.60 Unspecified cirrhosis of liver
CPT/HCPCS: 36415; 80053; 82105; 82248; 85025; 85610; 85730

== ENCOUNTER → 2021-09-30 | Outpatient (CLI) | payer MEDICARE, SELFPAY ==
--- NOTE | 2021-09-30 15:56 | BD_ITS ---
STUDY: DUAL ENERGY X-RAY ABSORPTIOMETRY / DXA REASON FOR EXAM: Female, 66 years old. [id number]. Patient is postmenopausal. TECHNIQUE: Bone Mineral Density (BMD) measurements of lumbar spine and bilateral hips were obtained. COMPARISON: Comparison is made with prior study 07/15/2017. FINDINGS: Lumbar Spine (L1-L4): g/cm2 (0.928) / T-score (-1.1) / Z-score (0.7) Findings are suggestive of osteopenia with a low fracture risk. Left Femur Total: g/cm2 (0.619) / T-score (-2.6) / Z-score (-1.4) Left Femoral Neck: g/cm2 (0.5-4) / T-score (-2.9) / Z-score (-1.4) Right Femur Total: g/cm2 (0.640) / T-score (-2.5) / Z-score (-1.2) Right Femoral Neck: g/cm2 (0.509) / T-score (-3.1) / Z-score (-1.5) The T-Scores on the most recent prior examination were: Lumbar Spine (L1-L4): There has been worsening of bone density since the previous examination. Left Femur Total: which represents a worsening of 2.4%. Right Femur Total: which represents an improvement of 1.5%. BD/Dexa Bone Density Study IMPRESSION: The patient is considered osteoporotic as outlined below according to World [employer] Organization (WHO) criteria with a high fracture risk. There has been worsening of bone density since the previous examination. Reference Information: The T-score is the number of standard deviations above or below the standard which is normal for young adults at their peak bone mineral density. The World Health Organization (WHO) interprets the T-scores as follows: Above -1 Normal bone density Between -1 and -2.5 Osteopenia Equal to / or below -2.5 Osteoporosis As a practical clinical guideline, osteopenia may be graded as follows: Mild -1 through -1.5 Moderate -1.6 through -2.0 Severe -2.1 through -2.4 The Z-score is the number of standard deviations above or below age-matched controls. A Z-score of less than -1.5 would be considered abnormal. References: 1. NIH Osteoporosis and Related Bone Diseases www osteo.org 2. International Society for Clinical Densitometry www iscd.org 3. National Osteoporosis Foundation www nof.org Electronically Signed: Umer Meier MD at 13:49 EDT ,
== END | disposition home or self-care (01) ==
LOC: OPBD 15:47
PROVIDERS: PCP Family Medicine; Visit Provider Internal Medicine Rheumatology
DX: Z13.820 Encounter for screening for osteoporosis (principal); M32.9 Systemic lupus erythematosus, unspecified; M81.0 Age-related osteoporosis without current pathological fracture; Z78.0 Asymptomatic menopausal state
CPT/HCPCS: 77080

== ENCOUNTER 2022-01-29 14:01 | Outpatient (RCR) | payer MEDICARE, SELFPAY ==
[2022-01-29 14:51] LABS: Absolute Lymphocyte Count 0.17 X10^3/uL (0.83-4.51); Absolute Neutrophil Count 3.1 X10^3/uL (2.0-7.7); Basophil# 0.01 X10^3/uL; Basophil% 0.3 % (0-1); Hematocrit 40.4 % (37-47); Hemoglobin 12.4 g/dL (12.0-15.0); Lymphocyte # 0.17 X10^3/ul (0.83-4.51); Lymphocyte % 4.8 % (19-41); Mean Corp Hgb Conc 30.7 g/dL (32-36); Mean Corpuscular Hgb 27.9 pg (27.0-32.0); Mean Platelet Vol. 12.1 fl (6.2-12.0); Monocyte# 0.23 X10^3/uL; Monocyte% 6.5 % (0-10); NRBC Flagged by Analyzer 0 % (0-5); Neutrophil % 87.3 % (47-70); POSITIVE COUNT YES; POSITIVE DIFFERENTIAL YES; Platelet Count 51 K/mm3 (150-450); RBC Distribution Width CV 16.1 % (11.6-14.6); RBC Distribution Width SD 53.8 fl (35.1-43.9); Red Blood Count 4.44 M/mm3 (4.2-5.4); White Blood Count 3.6 K/mm3 (4.4-11.0)
[2022-01-29 14:53] LABS: Differential Indicated SCAN CRITERIA MET
[2022-01-29 15:16] LABS: Platelet Estimate MKD DEC (ADEQ)
[2022-01-29 15:17] LABS: AST(SGOT) 44 U/L (15-37); Alanine Aminotransfer ALT/SGPT 65 U/L (13-56); Albumin, Serum 2.7 g/dL (3.2-5.0); Alkaline Phosphatase 206 U/L (45-117); Bilirubin, Direct 0.27 mg/dL (0.00-0.30); Protein, Total 7.7 g/dL (6.4-8.2)
[2022-01-30 14:23] LABS: Pathologist Review Reviewed
== END 2022-02-11 18:00 | disposition home or self-care (01) ==
LOC: LAB 14:01
PROVIDERS: PCP Family Medicine
DX: K75.4 Autoimmune hepatitis (principal)
CPT/HCPCS: 36415; 80076; 85025

== ENCOUNTER → 2022-02-13 | Outpatient (CLI) | payer MEDICARE, SELFPAY ==
--- NOTE | 2022-02-13 08:29 | US_ITS ---
EXAM: US ABDOMEN LIMITED, RIGHT UPPER QUADRANT CLINICAL INDICATION: CIRRHOSIS TECHNIQUE: Real-time ultrasound of the right upper quadrant with image documentation. This report was created using [employer] report generation technology. COMPARISON: None. FINDINGS: LIVER: Cirrhotic liver, measuring 12.4 cm in length. Cirrhotic liver. No hepatic masses. There is normal echotexture. No intrahepatic biliary ductal dilation. GALLBLADDER: Cholelithiasis with gallbladder wall thickening. Sonographic Hall''s sign was not specifically reported. No pericholecystic fluid. COMMON BILE DUCT: Unremarkable as visualized. The proximal common bile duct is within normal limits for the patient''s age. PANCREAS: Unremarkable as visualized. No focal abnormality is demonstrated in the pancreas. No pancreatic ductal dilatation. RIGHT KIDNEY: Unremarkable. There is no hydronephrosis. No shadowing calculus. No focal lesion or perinephric collection is demonstrated. OTHER VASCULATURE: Prominent main portal vein. US/Abdomen Limited IMPRESSION: Gallbladder wall thickening with gallstone present but no acute cholecystitis. Electronically Signed: Hira Abdi MD at 1:42 EST ,
== END | disposition home or self-care (01) ==
LOC: US 08:27
PROVIDERS: PCP Family Medicine
DX: K74.60 Unspecified cirrhosis of liver (principal); K75.4 Autoimmune hepatitis
CPT/HCPCS: 76705

== ENCOUNTER → 2022-04-09 | Outpatient (CLI) | payer MEDICARE, SELFPAY ==
[2022-04-09 15:52] LABS: International Normalized Ratio 1.3; Prothrombin Time (Protime)PT. 15.7 SECONDS (11.7-14.9)
[2022-04-09 15:54] LABS: AST(SGOT) 41 U/L (15-37); Alanine Aminotransfer ALT/SGPT 58 U/L (13-56); Albumin, Serum 2.8 g/dL (3.2-5.0); Alkaline Phosphatase 175 U/L (45-117); Bilirubin, Direct 0.24 mg/dL (0.00-0.30); Globulin 4.8 g/dL (2.2-4.2); Protein, Total 7.6 g/dL (6.4-8.2)
[2022-04-11 12:27] LABS: AFP, Tumor Marker 2.3 ng/mL (0.0-9.2)
== END | disposition home or self-care (01) ==
LOC: MTLAB 13:55
PROVIDERS: PCP Family Medicine
DX: K74.60 Unspecified cirrhosis of liver (principal); K75.4 Autoimmune hepatitis
CPT/HCPCS: 36415; 80076; 82105; 85610

== ENCOUNTER → 2022-06-19 | Outpatient (CLI) | payer MEDICARE, SELFPAY ==
--- NOTE | 2022-06-19 12:57 | ART_ITS ---
Reason For Study: Pain in left toes Procedure A bilateral lower extremity continuous wave Doppler with analog waveform analysis,segmental pressures,and ankle brachial indexes without exercise. Left Segmental Pressures Left brachial= 145mmHg. Left posterior tibial artery = 167mmHg. Left dorsalis pedis artery = 145mmHg. The left dorsalis pedis waveforms are triphasic. The left posterior tibial artery waveforms are triphasic. Right Segmental Pressures Right brachial= 147mmHg. Right posterior tibial artery = 165mmHg. Right dorsalis pedis artery = 150mmHg. Right digit = 50 mmHg. The right dorsalis pedis waveforms are triphasic. The right posterior tibial artery waveforms are triphasic. Indices The right ankle brachial index by the dorsalis pedis is 1.02. The right ankle brachial index by the posterior tibial artery is 1.12. The right digital-brachial index is 0.34. The left ankle brachial index by the dorsalis pedis is 0.99. The left ankle brachial index by the posterior tibial artery is 1.14. The left digital-brachial index is 0.35. VL/Lower Ext Art Exam w/o Exercis Interpretation Summary Right ALLYSON 1.12, normal. Doppler/PVR waveforms of the right leg normal at rest. TBI and digit waveforms diminished, pedal/digit disease. Left ALLYSON 1.14, normal. Doppler/PVR waveforms of the left leg normal at rest. TB I and digit waveforms diminished, pedal/digit disease. Ordering Physician: Eduar Woo Referring Physician: Juanjose Chapman Performed By: Marianne Bob RVT
--- NOTE | 2022-06-19 12:58 | VDLE_ITS ---
Reason For Study: Pain in left toes RIGHT LEFT GSV is normal. GSV is normal. CFV is compressible, spontaneous, phasic, CFV is compressible, spontaneous, phasic, competent and demonstrates normal competent, and demonstrates normal augmentation. augmentation. FV is compressible, spontaneous, phasic, FV is compressible, spontaneous, phasic, competent and demonstrates normal competent and demonstrates normal augmentation. augmentation. POP V is compressible, spontaneous, phasic, POP V is compressible, spontaneous, phasic, competent and demonstrates normal competent and demonstrates normal augmentation. augmentation. T/P Trunk is compressible. T/P Trunk is compressible. PTV is compressible. PTV is compressible. RT PerV is compressible. LT PerV is compressible. Procedure This is a venous duplex using B-mode, color flow and spectral Doppler. Exam performed in department. VL/Venous Duplex US - Chris Extrem Interpretation Summary Deep veins of the bilateral lower extremities are patent and compressible segme ntally. There is no evidence of bilateral lower extremity deep vein thrombosis. The bilateral great saphenous veins appear patent and compressible segmentally. Incidental finding, non-vascular structure right popliteal fossa. Ordering Physician: Eduar Woo Referring Physician: Juanjose Murphy Performed By: Marianne Bob RVT
== END | disposition home or self-care (01) ==
LOC: CVS 12:56
PROVIDERS: PCP Family Medicine; Referring Provider Student in an Organized Health Care Education/Training Program; Visit Provider Student in an Organized Health Care Education/Training Program
DX: I73.00 Raynaud's syndrome without gangrene (principal); L97.922 Non-pressure chronic ulcer of unspecified part of left lower leg with fat layer exposed
CPT/HCPCS: 93923; 93970

== ENCOUNTER 2022-07-15 13:27 | Outpatient (CLI) | payer MEDICARE, SELFPAY ==
[2022-07-15 14:30] LABS: AST(SGOT) 51 U/L (15-37); Alanine Aminotransfer ALT/SGPT 69 U/L (13-56); Albumin, Serum 2.9 g/dL (3.2-5.0); Alkaline Phosphatase 217 U/L (45-117); Bilirubin, Direct 0.27 mg/dL (0.00-0.30); Globulin 5.3 g/dL (2.2-4.2); Protein, Total 8.2 g/dL (6.4-8.2)
== END 2022-07-15 23:59 | disposition home or self-care (01) ==
LOC: LAB 13:28
PROVIDERS: PCP Family Medicine
DX: Z00.00 Encounter for general adult medical examination without abnormal findings (principal)
CPT/HCPCS: 36415; 80076

== ENCOUNTER → 2022-09-02 | Outpatient (CLI) | payer MEDICARE, SELFPAY ==
[2022-09-02 11:45] LABS: Erythrocyte Sedimentation Rate 42 mm/hr (0-30)
[2022-09-02 11:48] LABS: Hematocrit 40.8 % (37-47); Hemoglobin 12.6 g/dL (12.0-15.0); Mean Corp Hgb Conc 30.9 g/dL (32-36); Mean Corpuscular Volume 90.7 fL (81-99); POSITIVE COUNT YES; Platelet Count 55 K/mm3 (150-450); RBC Distribution Width CV 16.1 % (11.6-14.6); RBC Distribution Width SD 53.5 fl (35.1-43.9); White Blood Count 3.9 K/mm3 (4.4-11.0)
[2022-09-02 12:02] LABS: AST(SGOT) 32 U/L (15-37); Alanine Aminotransfer ALT/SGPT 37 U/L (13-56); BUN 25 mg/dL (7-18); Creatinine, Serum 0.72 mg/dL (0.55-1.02); EST Glomerular Filtration Rate 86 mL/min (>60); Est Glom Filt Rate - Afr Amer 104 mL/min (>60)
== END | disposition home or self-care (01) ==
LOC: LAB 10:50
PROVIDERS: PCP Family Medicine; Referring Provider Internal Medicine Rheumatology; Visit Provider Internal Medicine Rheumatology
DX: M32.9 Systemic lupus erythematosus, unspecified (principal); K75.4 Autoimmune hepatitis; Z79.899 Other long term (current) drug therapy
CPT/HCPCS: 36415; 82565; 84450; 84460; 84520; 85027; 85652; 86140

== ENCOUNTER → 2022-09-21 | Outpatient (CLI) | payer MEDICARE, SELFPAY ==
--- NOTE | 2022-09-21 12:56 | CDU_ITS ---
Reason For Study: CAD Rt. Velocities/BP Lt. Velocities/BP Prox CCA 57.4/11.8 cm/sec. Prox CCA 57.2/11.9 cm/sec. Mid CCA 51.0/11.1 cm/sec. Mid CCA 58.8/18.2 cm/sec. Dist CCA 48.8/14.7 cm/sec. Dist CCA 46.0/16.8 cm/sec. Prox ICA 35.6/9.9 cm/sec. Prox ICA 40.3/13.2 cm/sec. Mid ICA 48.2/20.3 cm/sec. Mid ICA 63.9/26.1 cm/sec. Dist ICA 51.7/19.6 cm/sec. Dist ICA 67.6/27.0 cm/sec. Rt. ICA/CCA = 1.0. Lt. ICA/CCA = 1.2. Prox ECA 66.7/7.2 cm/sec. Prox ECA 85.5/13.0 cm/sec. Rt. Vert. 26.6/8.5 cm/sec. Lt. Vert. 39.6/16.9 cm/sec. Right Extracranial There is intimal thickening but no significant atherosclerotic plaque noted in the right common carotid artery. There is heterogeneous, irregular atherosclerotic plaque noted in the right internal carotid artery. There is heterogeneous, irregular atherosclerotic plaque noted in the right external carotid artery. Antegrade flow is noted in the right vertebral artery. Left Extracranial There is homogeneous, smooth atherosclerotic plaque noted in the left common carotid artery. There is homogeneous, smooth atherosclerotic plaque noted in the left internal carotid artery. There is homogeneous, smooth atherosclerotic plaque noted in the left external carotid artery. Antegrade flow is noted in the left vertebral artery. Procedure Carotid Duplex 19477. This is a Carotid Duplex examination using B-mode, color flow and specral Doppler. The exam was diagnostic. Exam performed in department. VL/Carotid Duplex Ultrasound Interpretation Summary Mild (<50%) stenosis right extracranial internal carotid. Mild (<50%) stenosis left extracranial internal carotid. Patent and antegrade vertebrals bilaterally. Ordering Physician: Gina Dexter Referring Physician: Gina Dexter Performed By: Jeremias Matt RVT
[2022-09-21 15:16] LABS: International Normalized Ratio 1.2; Prothrombin Time (Protime)PT. 14.7 SECONDS (11.7-14.9)
[2022-09-21 16:12] LABS: ALB/GLOB Ratio 0.5 RATIO (0.9-2.4); AST(SGOT) 36 U/L (15-37); Alanine Aminotransfer ALT/SGPT 46 U/L (13-56); Albumin, Serum 2.8 g/dL (3.2-5.0); Alkaline Phosphatase 189 U/L (45-117); Anion Gap 6 (5-15); BUN 26 mg/dL (7-18); BUN/Creat Ratio 29.1 RATIO (10-20); Bilirubin, Direct 0.29 mg/dL (0.00-0.30); Calcium,Total 8.7 mg/dL (8.5-10.1); Chloride 107 mmol/L (98-107); Creatinine, Serum 0.89 mg/dL (0.55-1.02); EST Glomerular Filtration Rate 67 mL/min (>60); Est Glom Filt Rate - Afr Amer 81 mL/min (>60); Globulin 5.2 g/dL (2.2-4.2); Glucose 181 mg/dL (74-106); Potassium 4.1 mmol/L (3.5-5.1); Sodium Level 137 mmol/L (136-145)
[2022-09-23 05:07] LABS: AFP, Tumor Marker < 1.8 ng/mL (0.0-9.2)
== END | disposition home or self-care (01) ==
PROVIDERS: PCP Family Medicine; Referring Provider Physician Assistant; Visit Provider Physician Assistant
DX: I65.23 Occlusion and stenosis of bilateral carotid arteries (principal); K74.60 Unspecified cirrhosis of liver; K75.4 Autoimmune hepatitis
CPT/HCPCS: 36415; 80053; 82105; 82248; 85610; 93880

== ENCOUNTER → 2022-11-09 | Outpatient (CLI) | payer MEDICARE, SELFPAY ==
--- NOTE | 2022-11-09 10:32 | US_ITS ---
INDICATION: CIRRHOSIS EXAMINATION: Ultrasound US Abdomen Limited (quadrant) TECHNIQUE: Hardy scale and color doppler imaging was performed of the right upper quadrant. COMPARISON: None. FINDINGS: LIVER: There is normal echotexture. The liver measures 12.4 cm. No focal hepatic lesion. There is no free fluid. GALLBLADDER AND BILIARY TREE: The gallbladder is contracted with multiple gallstones. Negative Hall sign. Gallbladder wall measures 3.6 mm. The proximal common bile duct measures 6.1, which is within normal limits for the patient''s age. Songraphic Hall''s sign: Negative. PANCREAS: Suboptimally seen head and tail of the pancreas otherwise visualized pancreas unremarkable. Right kidney: 10.6 x 5.3 x 5.2 cm. There is thinning of the right normal cortex measuring 9 mm. No hydronephrosis. US/Abdomen Limited IMPRESSION: Gallstones with borderline thickening of gallbladder wall, likely secondary to partial contraction. No distinct signs of acute cholecystitis. Remainder of the right upper quadrant ultrasound unremarkable. Electronically Signed: Francisca Navarro, at 20:57 EDT ,
== END | disposition home or self-care (01) ==
LOC: US 10:30
PROVIDERS: PCP Family Medicine; Referring Provider Internal Medicine Gastroenterology; Visit Provider Internal Medicine Gastroenterology
DX: K74.60 Unspecified cirrhosis of liver (principal)
CPT/HCPCS: 76705

== ENCOUNTER 2022-11-27 17:40 | Inpatient (IN) | payer MEDICARE, SELFPAY ==
[2022-11-27 17:40] VITALS: BP 131/49; PULSE 106; RESP 18; TEMP 36.4; O2SAT 97; BMI 24.8
[2022-11-27 19:42] VITALS: BP 140/68; PULSE 97; RESP 23; O2SAT 100
[2022-11-27] MEDS: 0.9% Normal Saline (1000mL) 1,000 ML 1000 ML IV (19:43)
--- NOTE | 2022-11-27 19:58 | RAD_ITS ---
STUDY: X-RAY CHEST REASON FOR EXAM: Female, 67 years old. weakness TECHNIQUE: Single AP portable view of the chest. COMPARISON: 09/22/2018 FINDINGS: The lungs are clear and expanded. There is no demonstrated pleural abnormality. Normal size heart. Normal mediastinum and payton. Normal visualized pulmonary arteries. Normal visualized aortic arch and descending thoracic aorta. Normal visualized thoracic spine. Normal visualized ribs, clavicles, and shoulders. There is no demonstrated abnormality of the visualized soft tissue structures of the upper abdomen. RAD/Chest 1 View (Portable) IMPRESSION: Normal x-ray examination of the chest. Electronically Signed: Boogie Tuttle MD at 20:12 EDT ,
[2022-11-27 20:06] LABS: ALB/GLOB Ratio 0.7 RATIO (0.9-2.4); AST(SGOT) 18 U/L (15-37); Alanine Aminotransfer ALT/SGPT 27 U/L (13-56); Albumin, Serum 2.6 g/dL (3.2-5.0); Alkaline Phosphatase 123 U/L (45-117); Anion Gap 6 (5-15); BUN 33 mg/dL (7-18); BUN/Creat Ratio 45.2 RATIO (10-20); Calcium,Total 8.2 mg/dL (8.5-10.1); Chloride 110 mmol/L (98-107); Creatinine, Serum 0.73 mg/dL (0.55-1.02); EST Glomerular Filtration Rate 85 mL/min (>60); Est Glom Filt Rate - Afr Amer 102 mL/min (>60); Estimated Creatinine Clearance 47.08 ml/min; Globulin 3.8 g/dL (2.2-4.2); Glucose 238 mg/dL (74-106); Potassium 4.3 mmol/L (3.5-5.1); Protein, Total 6.4 g/dL (6.4-8.2); Sodium Level 138 mmol/L (136-145); Troponin-I HS 13 pg/mL (3.0-54.0)
--- OUTSIDE RECORDS SUMMARY | 2022-11-27 20:07 | XMS RPT_ITS | CCD ---
Author Name Unknown Address [address] [place] [address] Organization [facility] Care Team Providers Care Ordering Box Operator Name Role Phone Zeke Chapman Unavailable Zeke Chapman Primary Care Provider MICHELLE MENSAH, DR ZEKE Denton Primary Care Physician Un available Zeke Chapman Referring Unavailable Gholam, Dr. Melissa Attending Unavailable Zeke Chapman Primary Care Unavailable Zeke Chapman Referring Unavailable Gholam, Dr. Melissa Attending Unavailable Zeke Chapman Primary Care Unavailable TARA MENSAH, SUPRIYA Navas Attending Unavailable MICHELLE MENSAH, DR ZEKE Denton Primary Care Unavailab luis angel YANCEY MD, DR SIMPSON Attending Unavailpage CHAPMAN MD, DR ZEKE Denton Primary Care Unavailab luis angel YANCEY MD, DR SIMPSON Attending Karl CHAPMAN MD, DR ZEKE Denton Primary Care Unavailab le Allergies Allergy Classification Reported Allergen(s) Allergy Type Date of Onset Reaction(s) Facility Sulfonamides (antibiotic) (1 source) Sulfonamides (Antibiotic); Translations: [Sulfa Drugs] Drug Allergy Unknown [facility] [address] [facility] Work Phone: (5 sources) Sulfonamides (Antibiotic); Translations: [Sulfa Drugs] Allergy to drug (finding) Unknown [facility] [address] [facility] Work Phone: (1 source) Sulfamethoxazole / Trimethoprim Drug Allergy 9 [facility] Work Phone: (2 sources) Sulfonamides (Antibiotic); Translations: [sulfa drugs] Drug allergy [facility] Medications Current Medications Medication Drug Class(es) Dates Sig (Normalized) Sig (Original) carvedilol 6.25 mg oral tablet (3 sources) alpha-Adrenergic Dioni, beta-Adrenergic Dioni Start: 03-20-2022 carvedilol 6.25 mg oral tablet Dose : 6.25 mg = 1 tab(s), Oral, BIDM, 0 Refill(s) Start Date: 03/20/22 Status: Ordered Completed/Discontinued Medications Medication Drug Class(es) Dates Sig (Normalized) Sig (Original) amLODIPine 10 mg oral tablet (1 source) Dihydropyridine Calcium Channel Dioni Start: 09-19-2008 amlodipine besylate(NORVASC 10 MG TAB) Indications: Secondary thrombocytopenia Take one(1) tablet daily. 0 09/19/2008 Active Problems Active Problems Problem Classification Problem Date Documented Da te Episodic/Chronic Esophageal disorders (6 sources) Esophageal varices; Translations: [Esophageal varices without mention of bleeding] Chronic Hepatitis (6 sources) Autoimmune hepatitis; Translations: [Autoimmune hepatitis] Chronic Other circulatory disease (6 sources) H/O: hypertension; Translations: [Personal history of other diseases of circulatory system] Episodic Other connective tissue disease (6 sources) H/O: arthritis; Translations: [Personal history of arthritis] Episodic Other connective tissue disease (6 sources) H/O: osteoarthritis; Translations: [Personal history of arthritis] Episodic Other liver diseases (6 sources) Cirrhosis of liver; Translations: [Cirrhosis of liver without mention of alcohol] Chronic Residual codes; unclassified (6 sources) H/O: Disorder; Translations: [Personal history of other specified diseases] Episodic Residual codes; unclassified (6 sources) History of clinical finding in subject; Translations: [Personal history of other specified diseases] Episodic Systemic lupus erythematosus and connective tissue disorders (8 sources) Lupus erythematosus; Translations: [Systemic lupus erythematosus] Onset: 09-18-2022 Chronic Past or Other Problems Problem Classification Problem Date Documented Da te Episodic/Chronic Coagulation and hemorrhagic disorders (1 source) Secondary thrombocytopenia; 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] Onset: 09-19-2008 09-19-2008 Episodic Results Test Name Value Interpretation Reference Range Facil ity Vital Signs Date Time Vital Sign Value Performing Clinician Ina knott 04-27-2022 10:05-0500 Diastolic Blood Pressure Non-Invasive [address] TATIANA YANCEY MD [facility] 04-27-2022 10:05-0500 Heart rate 99 /min DR TATIANA YANCEY MD [facility] 04-27-2022 10:05-0500 Respiratory rate 14 /min DR TATIANA YANCEY MD [facility] 04-27-2022 10:05-0500 Systolic Blood Pressure Non-Invasive [address] TATIANA YANCEY MD [facility] 04-27-2022 10:00-0500 Diastolic Blood Pressure Non-Invasive [address] TATIANA YANCEY MD [facility] 04-27-2022 10:00-0500 Heart rate 93 /min DR TATIANA YANCEY MD [facility] 04-27-2022 10:00-0500 Systolic Blood Pressure Non-Invasive [address] TATIANA YANCEY MD [facility] 04-27-2022 09:55-0500 Diastolic Blood Pressure Non-Invasive [address] TATIANA YANCEY MD [facility] 04-27-2022 09:55-0500 Heart rate 95 /min DR TATIANA YANCEY MD [facility] 04-27-2022 09:55-0500 Respiratory rate 14 /min DR TATIANA YANCEY MD [facility] 04-27-2022 09:55-0500 Systolic Blood Pressure Non-Invasive [address] TATIANA YANCEY MD [facility] 04-27-2022 09:45-0500 Respiratory Rate - Anes 5 br/min DR TATIANA YANCEY MD [facility] 04-27-2022 09:40-0500 Respiratory Rate - Anes 36 br/min DR TATIANA YANCEY MD [facility] 04-27-2022 09:35-0500 Respiratory Rate - Anes 28 br/min DR TATIANA YANCEY MD [facility] 04-27-2022 07:46-0500 Body height 147.[address] TATIANA YANCEY MD [address] [place] [address] 04-27-2022 07:46-0500 Body weight 54.[address] TATIANA YANCEY MD [address] [place] [address] 04-27-2022 07:46-0500 Body weight 25.12 kg/m2 DR TATIANA YANCEY MD [facility] 04-27-2022 07:29-0500 Body height 147.[address] TATIANA YANCEY MD [facility] 04-27-2022 07:29-0500 Body temperature 96.8 [degF] DR TATIANA YANCEY MD [facility] 04-27-2022 07:29-0500 Body weight 54.[address] TATIANA YANCEY MD [facility] 04-27-2022 07:29-0500 Heart rate 96 /min DR TATIANA YANCEY MD [facility] 03-23-2022 09:24-0500 Diastolic Blood Pressure Non-Invasive [address] TATIANA YANCEY MD [facility] 03-23-2022 09:24-0500 Heart rate 88 /min DR TATIANA YANCEY MD [facility] 03-23-2022 09:24-0500 Respiratory rate 15 /min DR TATIANA YANCEY MD [facility] 03-23-2022 09:24-0500 Systolic Blood Pressure Non-Invasive [address] TATIANA YANCEY MD [facility] 03-23-2022 09:19-0500 Heart rate 96 /min DR TATIANA YANCEY MD [facility] 03-23-2022 09:13-0500 Body temperature 97.52 [degF] DR TATIANA YANCEY MD [facility] 03-23-2022 09:13-0500 Diastolic Blood Pressure Non-Invasive [address] TATIANA YANCEY MD [facility] 03-23-2022 09:13-0500 Heart rate 100 /min DR TATIANA YANCEY MD [facility] 03-23-2022 09:13-0500 Respiratory rate 26 /min DR TATIANA YANCEY MD [facility] 03-23-2022 09:13-0500 Systolic Blood Pressure Non-Invasive [address] TATIANA YANCEY MD [facility] 03-23-2022 09:10-0500 Diastolic Blood Pressure Non-Invasive [address] TATIANA YANCEY MD [facility] 03-23-2022 09:10-0500 Respiratory Rate - Anes 9 br/min DR TATIANA YANCEY MD [facility] 03-23-2022 09:10-0500 Systolic Blood Pressure Non-Invasive [address] TATIANA YANCEY MD [facility] 03-23-2022 09:05-0500 Respiratory Rate - Anes 22 br/min DR TATIANA YANCEY MD [facility] 03-23-2022 09:00-0500 Respiratory Rate - Anes 19 br/min DR TATIANA YANCEY MD [facility] 03-23-2022 07:45-[address] TATIANA YANCEY MD [facility] 03-23-2022 07:45-[address] TATIANA YANCEY MD [facility] 03-23-2022 07:45-0500 Body temperature 97.34 [degF] DR TATIANA YANCEY MD [facility] 03-23-2022 07:45-0500 Heart rate 95 /min DR TATIANA YANCEY MD [facility] 03-23-2022 07:45-0500 Respiratory rate 18 /min DR TATIANA YANCEY MD [facility] 03-23-2022 07:33-0500 Body height 147.[address] TATIANA YANCEY MD [facility] 03-23-2022 07:33-0500 Body weight 54.[address] TATIANA YANCEY MD [facility] 03-23-2022 07:33-0500 Body weight 25.12 kg/m2 DR TATIANA YANCEY MD [facility] Encounters Encounter Date Encounter Type Care Provider Facility Start: 09-18-2022 End: 09-23-2022 ambulatory SUPRIYA CHAPA MD Facility:A Start: 04-28-2022 AUDIT Zeke sharma Work Phone: [facility] Work Phone: Start: 04-27-2022 End: 04-27-[address] TATIANA YANCEY MD Facility:B Start: 04-27-2022 End: 04-27-[address] TATIANA YANCEY MD [facility] Start: 03-30-2022 ambulatory Zeke Buckley lity:[id number] Start: 03-23-2022 End: 03-23-[address] TATIANA YANCEY MD Facility:B Start: 03-23-2022 End: 03-23-[address] TATIANA YANCEY MD [facility] Start: 08-04-2021 Office outpatient vi sit 15 minutes Zeke Chapman Work Phone: [facility] [place] [address] [facility] Work Phone: Start: 08-04-2021 Patient encounter procedure Zeke Chapman Work Phone: [facility] [place] [address] [facility] Work Phone: Start: 08-04-2021 ambulatory Zeke Buckley lity:[id number] Start: 07-02-2021 End: 07-02-2021 Subsequent hospital visit by physician Supriya Chapa MD Work Phone: [facility] Procedures Date Procedure Procedure Detail Performing Clinician Cataract surgery Zeke estrada Work Phone: section Zeke estrada Work Phone: Extraction of cataract DR BROOKE YANCEY MD Plan of Treatment Date Care Activity Detail Author Start: 11-13-2021 Influenza vaccination INFLUENZA (Sea son Ended) [facility] Start: 2021 ADVANCE DIRECTIVE DISCUSSION ADVANCE DIRECTIVE DISCUSSION [facility] Start: 2021 BONE DENSITY BONE DENSITY [facility] Start: 2021 PNEUMOVAX AGE 65 AND OVER WITH 5YR LOOKBACK (#1) PNEUMOVAX AGE 65 AND OVER WITH 5YR LOOKBACK (#1) [facility] Start: 09-20-2011 DIABETES SCREEN DIABETES SCREEN [facility] Start: 2006 SHINGRIX VACCINE (1 of 2) SHINGRIX V ACCINE (1 of 2) [facility] Start: 2001 COLOGUARD (FIT-DNA) COLOGUARD (FIT-D NA) [facility] Start: 2001 Colonoscopy COLONOSCOPY [facility] Start: 2001 COLORECTAL CANCER SCREENING COLORECTAL CANCER SCREENING [facility] Start: [address] [facility] Start: 2001 FECAL OCCULT BLOOD FECAL OCCULT BLOO D [facility] Start: 2001 LIPID SCREEN LIPID SCREEN [facility] Start: 2001 SIGMOIDOSCOPY SIGMOIDOSCOPY [facility] Start: 1996 Mammography MAMMOGRAM [facility] Start: 06-27-1975 Urine microalbumin profile DTAP,TDAP ,TD (1 - Tdap) [facility] Start: 1974 HIV SCREENING HIV SCREENING [facility] Start: 1968 Adult depression scr eening assessment DEPRESSION SCREENING [facility] Start: 1961 COVID-19 VACCINE (1) COVID-19 VACCIN E (1) [facility] Payers Date Payer Category Payer Medicare [id number] 2008 Unknown ANTHEM BLUE CARD PPO OOS [id number] 2008-Present [phone] [facility] [id number] [place] [address] PPO [id number] 1956 Unknown [id number] 1956 Unknown [id number] 1956 Unknown [id number] 1956 Unknown [id number] 1956 Unknown [id number] Unknown Social History Date Type Detail Facility Former smoker Former smoker [facility] [address] [facility] Work Phone: Start: 03-20-2022 Tobacco smoking stat [facility] Ex-smoker [facility] End: 10-02-2007 History of tobacco use Current smoker [facility] Start: 09-19-2008 Alcohol intake Not Asked Subhash dill [facility] Start: 1955 Sex Assigned At Not on file C [facility] Sex Assigned At Female [facility] Functional Status Date Assessment Result Facility 04-27-2022 Functional Status [facility] 04-27-2022 Functional Status Maintained [facility] 03-23-2022 Functional Status Sleeping [facility] 03-23-2022 Functional Status Maintained [facility] Mental Status Date Assessment Result Facility 04-27-2022 [facility] 03-23-2022 Mental Status Oriented x 4 [facility] Clinical Notes 08-04-2021 to 04-27-2022 Note Date & Type Note Facility [facility] ADMISSION HISTORY AN D PHYSICIAL CHIEF COMPLAINT: HISTORY OF PRESENT ILLNESS: REVIEW OF SYSTEMS: ACTIVE PROBLEMS: (11) Ascites (9243819055) Autoimmune hepatitis (2488376763) Cirrhosis of liver (26454344) Esophageal varices (85755073) Essential thrombocythemia (1593837122) Fatigue (669537824) Fibrosis of liver (313632504) Hepatitis A immune (554864189) HTN (hypertension) (3033801268) Lupus (691149868) Osteoporosis (894825535) MEDICATIONS: Active Inpt Meds: None Active PRN Meds: None One Time Meds: None Active IV Meds: Lactated Ringers Infusion 1,000 mL (LR 1,000 mL) Start: 04/27/22 7:51:00 EST, Rate: 50 mL/hr, 04/27/22 7:51:00 EST ALLERGIES: (1) sulfa drug FAMILY HISTORY: SOCIAL HISTORY: PHYSICAL EXAM: VITALS: [id number](kg) 04/27 07:2936.0--[id number]/13 54.5 04/27 54.5 24 Hr Tmax: 36.0 at 04/27 07:29 36 Hr Tmax: 36.0 at 04/27 07:29 Vital Signs are the last 5 in the past 48 hours. Weights display the last 5 within 7 days. Initial Wt: 04/27 54.5 kg 120 lb Current Wt: 04/27 54.5 kg 120 lb GENERAL: HEENT: CARDIOVASCULAR: RESPIRATORY: ABDOMEN: EXREMETIES: NEUROLOGICAL: PSYCHIATRIC: LABS: 36hr Labs 04/27 0745 Blood Glucose, [id number] Blood Glucose, Pzelhusad96I DIAGNOSTICS: IMPRESSION: PLAN: History and Physical Update I have examined the patient; reviewed the H&P and there are no changes to the H&P unless noted below. [facility] 02-13-2023 Hospital Discharge instructions Patient Education 04/27/2022 09:54:24 Monitored Anesthesia Care, Care After Monitored Anesthesia Care, Care After These instructions provide you with information about caring for yourself after your procedure. Your health care provider may also give you more specific instructions. Your treatment has been plannedaccording to current medical practices, but problems sometimes occur. Call your health care provider if you have any problems or questions after your procedure. What can I expect after the procedure? After your procedure, you may: Feel sleepy for several hours. Feel clumsy and have poor balance for several hours. Feel forgetful about what happened after the procedure. Have poor judgment for several hours. Feel nauseous or vomit. Have a sore throat if you had a breathing tube during the procedure. Follow these instructions at home: For at least 24 hours after the procedure: Have a responsible adult stay with you. It is important to have someone help care for you until youare awake and alert. Rest as needed. Do not: ?Participate in activities in which you could fall or become injured. ?Drive. ?Use heavy machinery. ?Drink alcohol. ?Take sleeping pills or medicines that cause drowsiness. ?Make important decisions or sign legal documents. ?Take care of children on your own. Eating and drinking Follow the diet that is recommended by your health care provider. If you vomit, drink water, juice, or soup when you can drink without vomiting. Make sure you have little or no nausea before eating solid foods. General instructions Take cmmf-ylg-nddiaww and prescription medicines only as told by your health care provider. If you have sleep apnea, surgery and certain medicines can increase your risk for breathing problems. Follow instructions from your health care provider about wearing your sleep device: ?Anytime you are sleeping, including during daytime naps. ?While taking prescription pain medicines, sleeping medicines, or medicines that make you drowsy. If you smoke, do not smoke without supervision. Keep all follow-up visits as told by your health care provider. This is important. Contact a health care provider if: You keep feeling nauseous or you keep vomiting. You feel light-headed. You develop a rash. You have a fever. Get help right away if: You have trouble breathing. Summary For several hours after your procedure, you may feel sleepy and have poor judgment. Have a responsible adult stay with you for at least 24 hours or until you are awake and alert. This information is not intended to replace advice given to you by your health care provider. Make sure you discuss any questions you have with your health care provider. Document Released: 06/21/2016 Document Revised: 05/30/2018 Document Reviewed: 06/21/2016 [employer] Patient Education 2020 [employer]. 04/27/2022 09:53:41 9 - AO Minor Esophagogastroduodenoscopy (05/26)(CUSTOM) Esophagogastroduodenoscopy This is an endoscopic procedure (a procedure that uses a device like a flexible telescope) that allows your caregiver to view the upper stomach and small bowel. This test allows your caregiver to look at the esophagus. The esophagus carries food from your mouth to your stomach. They can also look at your duodenum. This is the first part of the small intestine that attaches to the stomach. This maritza t is used to detect problems in the bowel such as ulcers and inflammation. MEANING OF TEST Your caregiver will go over the test results with you and discuss the importance and meaning of your results, as well as treatment options and the need for additional tests if necessary. OBTAINING THE TEST RESULTS Your caregiver s office will call you with the results of the test. POST SEDATION INSTRUCTIONS Rest at home today. Since your coordination may be impaired, be cautious on stairways, do not drive any vehicle or operate any heavy machinery, or use any sharp instruments for the remainder of the day. Do not drink any alcoholic beverages or make any major decisions for 24 hours. POST PROCEDURE INSTRUCTIONS Progress slowly with full liquids then resume previous diet and medications. Belching or passing of gas is to be expected. Notify the physician if you have severe chest pain, fever, or if difficulty when swallowing persists. 05/23/13 Custom Follow Up Care 04/02/2022 14:52:05 With:TATIANA YANCEY MD Address: [facility] [place] [address] [address] [phone] When: Unknown Comments:Follow-up as needed [facility] 02-13-2023 Summary of episode note Discharge Instructions Thank you for allowing [facility] to assist you with your healthcare needs. The following is importantdischarge information regarding your hospital visit. Your Care Team MICHELLE MENSAH, ZEKE Denton Your Diagnosis EGD WITH BANDING What to do next Follow Up Appointments Follow Up with TATIANA YANCEY MD When Why: Follow-up as needed Where: [facility] [place] [address] [address] [phone] Allergies sulfa drug Medications Please ask your primary doctor or pharmacist before taking any other medication not listed, including over the counter drugs, herbal medications, vitamins and or supplements as they may interact withyour home medications. What How Much When Instructions Last Dose Unchanged carvedilol (carvedilol 6.25 mg oral tablet) 1 tab(s) by mouth Twice daily with meals Unchanged ezetimibe (ezetimibe 10 mg oral tablet) 1 tab(s) by mouth Every day Unchanged glipiZIDE (glipiZIDE 2.5 mg oral tablet, extended release) 1 tab(s) by mouth Once a day with a meal Unchanged levothyroxine (levothyroxine 50 mcg (0.05 mg) oral tablet) 1 tab(s) by mouth Once a day before a meal Unchanged predniSONE (Deltasone 5 mg tab (TAPER)) 1 tab(s) by mouth Once a day Unchanged spironolactone (spironolactone 25 mg oral tablet) 1 tab(s) by mouth Twice daily with meals Please take this list to your next doctor s visit. Bring all medications you take, including over the counter medications, herbals and other supplements with you to your doctor s visit. Patients and families are reminded to discard old lists and to update any records with all medication providers or retail pharmacies. Education Materials Monitored Anesthesia Care, Care After These instructions provide you with information about caring for yourself after your procedure. Your health care provider may also give you more specific instructions. Your treatment has been plannedaccording to current medical practices, but problems sometimes occur. Call your health care provider if you have any problems or questions after your procedure. What can I expect after the procedure? After your procedure, you may: Feel sleepy for several hours. Feel clumsy and have poor balance for several hours. Feel forgetful about what happened after the procedure. Have poor judgment for several hours. Feel nauseous or vomit. Have a sore throat if you had a breathing tube during the procedure. Follow these instructions at home: For at least 24 hours after the procedure: Have a responsible adult stay with you. It is important to have someone help care for you until youare awake and alert. Rest as needed. Do not: ? Participate in activities in which you could fall or become injured. ? Drive. ? Use heavy machinery. ? Drink alcohol. ? Take sleeping pills or medicines that cause drowsiness. ? Make important decisions or sign legal documents. ? Take care of children on your own. Eating and drinking Follow the diet that is recommended by your health care provider. If you vomit, drink water, juice, or soup when you can drink without vomiting. Make sure you have little or no nausea before eating solid foods. General instructions Take oiie-nmf-yjrilye and prescription medicines only as told by your health care provider. If you have sleep apnea, surgery and certain medicines can increase your risk for breathing problems. Follow instructions from your health care provider about wearing your sleep device: ? Anytime you are sleeping, including during daytime naps. ? While taking prescription pain medicines, sleeping medicines, or medicines that make you drowsy. If you smoke, do not smoke without supervision. Keep all follow-up visits as told by your health care provider. This is important. Contact a health care provider if: You keep feeling nauseous or you keep vomiting. You feel light-headed. You develop a rash. You have a fever. Get help right away if: You have trouble breathing. Summary For several hours after your procedure, you may feel sleepy and have poor judgment. Have a responsible adult stay with you for at least 24 hours or until you are awake and alert. This information is not intended to replace advice given to you by your health care provider. Make sure you discuss any questions you have with your health care provider. Document Released: 06/21/2016 Document Revised: 05/30/2018 Document Reviewed: 06/21/2016 [employer] Patient Education 2020 [employer]. Esophagogastroduodenoscopy This is an endoscopic procedure (a procedure that uses a device like a flexible telescope) that allows your caregiver to view the upper stomach and small bowel. This test allows your caregiver to look at the esophagus. The esophagus carries food from your mouth to your stomach. They can also look at your duodenum. This is the first part of the small intestine that attaches to the stomach. This maritza t is used to detect problems in the bowel such as ulcers and inflammation. MEANING OF TEST Your caregiver will go over the test results with you and discuss the importance and meaning of your results, as well as treatment options and the need for additional tests if necessary. OBTAINING THE TEST RESULTS Your caregiver s office will call you with the results of the test. POST SEDATION INSTRUCTIONS Rest at home today. Since your coordination may be impaired, be cautious on stairways, do not drive any vehicle or operate any heavy machinery, or use any sharp instruments for the remainder of the day. Do not drink any alcoholic beverages or make any major decisions for 24 hours. POST PROCEDURE INSTRUCTIONS Progress slowly with full liquids then resume previous diet and medications. Belching or passing of gas is to be expected. Notify the physician if you have severe chest pain, fever, or if difficulty when swallowing persists. 05/23/13 Custom Additional Information VACCINATE! IT SAVES LIVES! Members of the community who have not yet received the COVID-19 vaccine and would like to receive it can visit one of [facility] vaccine clinics. There are many vaccine clinic locations within the [facility]. For locations and available times, please visit [email or web address] It is important to note that some COVID mobile vaccine clinics are held outdoors and may be canceled in rainy or stormy conditions. To learn more about pediatric vaccinations (ages 5-11), we invite you to visit the [facility] webpage. [email or web address] learn more about the COVID-19 vaccine, we invite you to visit the [facility] website for a list of frequently asked questions. [email or web address] [facility] Patient Portal Access Instructions: Stay connected with your healthcare team and access your personal medical information anytime with the [facility] Patient Portal.If you would like a full copy of your medical records, please contact the [facility] Medical Records Department, Wednesday through Wednesday between 8a.m. and 4:30p.m. Please follow the directions below to access the portal: 1.Access the email account you provided upon registration to the hospital.2.Look for an invitation email from [facility].3.Open the email and access the invitation link: Accept Invitation to [facility]4.Fill in the required barrios to create your account. Sign into [email or web address].Ticket Cake with your username and password that you created in the above steps to stay up to date. You can then view a summary of results, a summary of your visits, and the ability to download your summaries to your computer or send the information securely to a physician. Remember that your healthcare information is confidential, so carefully consider who you will allow to register on the [facility] Patient Portal for access to your information. You can also access the [facility] Patient Portal on the [facility]ita. Simply click on Health Records under [place] and then click on the [facility] logo. HOW TO SAFELY DISPOSE OF PRESCRIPTION MEDICATIONS Please use one of the following methods to safely dispose of your unused medications. 1.Use a drug disposal kit: the drug disposal pouch allows you to safely discard your old and unuseddrugs. Ask your nurse to give you one when you are discharged.2.Visit a local take-back location: Many local pharmacies and police departments have programs that collect old and unwanted prescriptiondrugs. Call your local pharmacy or go to http://[email or web address] to find one close to you.3.Make use of household items: Use cat litter or old coffee grounds to dispose medications if other options arenot available. Mix your drugs with these household products, seal them in an airtight container andthrow it into the garbage. Call [facility]: [phone] to be sure your drugs can be disposed of in this way. Some medicines may require a different approach.4.Never flush your medications down the toilet. IF YOU HAVE BEEN PRESCRIBED AN OPIOID FOR PAIN If you have been prescribed an opioid (such as hydrocodone, oxycodone or morphine), it is critical to understand the possible side effects and risks of opioid pain medications. Even when taken as directed, opioids can have several side effects including: Tolerance, meaning you might need to take more of a medication for the same pain relief. Nausea, vomiting and/or constipation. Sleepiness, dizziness, dry mouth, confusion, depression or itching. Physical dependence, meaning you have withdrawal symptoms when a medication is stopped, can develop within a few days. KNOW YOUR RESPONSIBILITIES It is important to know exactly how much and how often to take the opioid pain medications you are prescribed. Never take opioids in higher amounts or more often than prescribed. Do not combine opioids with alcohol or other drugs that cause drowsiness, such as benzodiazepines, also known as benzos, including diazepam and alprazolam, muscle relaxants or sleep aids. Never sell or share prescription opioids. This is illegal. Store opioids in a secure place and out of reach of others (including children, family, friends and visitors). The last page of this document has been signed and retained as a CHART COPY. Signatures Patient Education Materials Monitored Anesthesia Care, Care After 9 - AO Minor Esophagogastroduodenoscopy (05/26)(CUSTOM) Medication Leaflets My discharge plan and instructions have been reviewed and explained to me and I,JAKY PRESTON understand my current condition and have read and understand these discharge instructions. I have received a written copy of the plan/instructions. If I have questions, I am aware that I should contactmy doctor. Patient/Web Development Director Signature: Date/Time: Relationship to Patient: Witness Name/Signature: Date/Time: [facility]02-13-2023 Anesthesiology Consult note Patient: JAKY PRESTON Age: 66 years Sex: Female : 1955 Associated Diagnoses: None Author: PAPITO LORD APRN-FRONT OFFICE REPRESENTATIVE Assessment Postanesthesia assessment Vitals: Vital signs from flowsheet : Vital Signs 04/27/2022 9:45 EST Heart Rate Monitored 93 bpm bpm Respiratory Rate - Anes 5 br/min br/min Systolic Blood Pressure Non-Invasive 90 mmHg mmHg Diastolic Blood Pressure Non-Invasive 69 mmHg mmHg 04/27/2022 9:40 EST Heart Rate Monitored 102 bpm bpm Respiratory Rate - Anes 36 br/min br/min Systolic Blood Pressure Non-Invasive 92 mmHg mmHg Diastolic Blood Pressure Non-Invasive 68 mmHg mmHg 04/27/2022 9:35 EST Heart Rate Monitored 102 bpm bpm Respiratory Rate - Anes 28 br/min br/min Systolic Blood Pressure Non-Invasive 124 mmHg mmHg Diastolic Blood Pressure Non-Invasive 76 mmHg mmHg 04/27/2022 9:30 EST Heart Rate Monitored 133 bpm bpm Respiratory Rate - Anes 27 br/min br/min Systolic Blood Pressure Non-Invasive 141 mmHg mmHg Diastolic Blood Pressure Non-Invasive 100 mmHg mmHg 04/27/2022 9:25 EST Heart Rate Monitored 122 bpm bpm Systolic Blood Pressure Non-Invasive 111 mmHg mmHg Diastolic Blood Pressure Non-Invasive 91 mmHg mmHg 04/27/2022 7:29 EST Temperature Temporal Artery 36.0 DegC Apical Heart Rate 96 bpm Respiratory Rate 20 br/min Systolic Blood Pressure Non-Invasive 137 mmHg Diastolic Blood Pressure Non-Invasive 67 mmHg . Mental status: at preoperative baseline. Respiratory function: lungs are clear to auscultation, respirations are non-labored. Respiratory support: none. CV function: Normal rate, Regular rhythm. Cardiovascular support: none. Pain: Post op control No intervention needed. Nausea status: denies nausea. Postoperative hydration status: within normal limits. Digitally Signed by PAPITO LORD on 04/27/2022 09:51 AM [facility]02-13-2023 Note [facility] ADMISSION HISTORY AND PHYSICIAL CHIEF COMPLAINT: HISTORY OF PRESENT ILLNESS: REVIEW OF SYSTEMS: ACTIVE PROBLEMS: (11) Ascites (0791060022) Autoimmune hepatitis (2422508921) Cirrhosis of liver (53522962) Esophageal varices (11030792) Essential thrombocythemia (7721741936) Fatigue (839591319) Fibrosis of liver (815342240) Hepatitis A immune (898135666) HTN (hypertension) (4929915445) Lupus (119862556) Osteoporosis (512200903) MEDICATIONS: Active Inpt Meds: None Active PRN Meds: None One Time Meds: None Active IV Meds: Lactated Ringers Infusion 1,000 mL (LR 1,000 mL) Start: 04/27/22 7:51:00 EST, Rate: 50 mL/hr, 04/27/22 7:51:00 EST ALLERGIES: (1) sulfa drug FAMILY HISTORY: SOCIAL HISTORY: PHYSICAL EXAM: VITALS: [id number]JzcbZo(kg) 04/27 07:2936.0--[id number]/13 54.5 04/27 54.5 24 Hr Tmax: 36.0 at 04/27 07:29 36 Hr Tmax: 36.0 at 04/27 07:29 Vital Signs are the last 5 in the past 48 hours. Weights display the last 5 within 7 days. Initial Wt: 04/27 54.5 kg 120 lb Current Wt: 04/27 54.5 kg 120 lb GENERAL: HEENT: CARDIOVASCULAR: RESPIRATORY: ABDOMEN: EXREMETIES: NEUROLOGICAL: PSYCHIATRIC: LABS: 36hr Labs 04/27 0745 Blood Glucose, Oakxxqley74K Blood Glucose, Znlaicsdq51X DIAGNOSTICS: IMPRESSION: PLAN: History and Physical Update I have examined the patient; reviewed the H&P and there are no changes to the H&P unless noted below. Digitally Signed by TATIANA YANCEY MD on 04/27/2022 09:27 AM [facility]02-13-2023 Anesthesiology Consult note Patient: JAKY PRESTON Age: 66 years Sex: Female : 1955 Associated Diagnoses: None Author: PAPITO LORD HIDE PULLER-FRONT OFFICE REPRESENTATIVE Preoperative Information Anesthesia history Patient's history: negative. Family's history: negative. Health Status Allergies: Allergic Reactions (Selected) Severity Not Documented Sulfa drug- No reactions were documented., Allergies (1) ActiveReaction sulfa drugNone Documented Current medications: (Selected) Inpatient Medications Ordered LR 1,000 mL: 50 mL/hr, Intravenous Documented Medications Documented Deltasone 5 mg tab (TAPER): 5 mg, 1 tab(s), Oral, qDay, 30 tab(s), 0 Refill(s) carvedilol 6.25 mg oral tablet: 6.25 mg, 1 tab(s), Oral, BIDM, 0 Refill(s) ezetimibe 10 mg oral tablet: 10 mg, 1 tab(s), Oral, Daily, 0 Refill(s) glipiZIDE 2.5 mg oral tablet, extended release: 2.5 mg, 1 tab(s), Oral, qDayM, 0 Refill(s) levothyroxine 50 mcg (0.05 mg) oral tablet: 50 mcg, 1 tab(s), Oral, qDayAC, 0 Refill(s) spironolactone 25 mg oral tablet: 25 mg, 1 tab(s), Oral, BIDM, 0 Refill(s), Medications (1) Active Scheduled: (0) Continuous: (1) Lactated Ringers Infusion 1,000 mL 1,000 mL, Intravenous, 50 mL/hr PRN: (0) Problem list: Active Problems (11) Ascites Autoimmune hepatitis Cirrhosis of liver Esophageal varices Essential thrombocythemia Fatigue Fibrosis of liver Hepatitis A immune HTN (hypertension) Lupus Osteoporosis Histories Past Medical History: No active or resolved past medical history items have been selected or recorded. Family History: Diabetes mellitus type 2 Mother CAD - Coronary artery disease Mother Procedure history: CE - Cataract extraction ([id number]). Social History Social & Psychosocial Habits Alcohol 03/20/2022 Use: Past Tobacco 03/20/2022 Tobacco Use: Former smoker, quit more . Physical Examination Vital Signs 04/27/2022 7:29 EST Temperature Temporal Artery 36.0 DegC Apical Heart Rate 96 bpm Respiratory Rate 20 br/min Systolic Blood Pressure Non-Invasive 137 mmHg Diastolic Blood Pressure Non-Invasive 67 mmHg Vital Signs(last 24 hrs) Last Charted Resp Rate 20 br/min (APR 27 07:29) YUF798 mmHg (APR 27:29) DBP67 mmHg (APR 27:29) BMI25.12 (APR 27 07:46) Measurements from flowsheet : Measurements 04/27/2022 7:46 EST Height 147.3 cm Admission Weight 54.5 kg [place] Body Weight 40.88 kg BSA Admission 1.47 Body Mass Index 25.12 kg/m2 04/27/2022 7:29 EST Height 147.3 cm Admission Weight 54.5 kg Weight Lbs 119.9 lb [place] Body Weight 40.88 kg Pain assessment: Pain Assessment 04/27/2022 7:29 EST Primary Pain Intensity 0 Pain Scale Type 0-10 Pain scale . General: Alert and oriented. Airway: Normal temporomandibular joint mobility. Mallampati classification: II (soft palate, fauces, uvula visible). Dentition Evaluation: Denies loose/chipped teeth. Respiratory: Lungs are clear to auscultation, Respirations are non-labored. Cardiovascular: Normal rate, Regular rhythm. Neurologic: Alert, Oriented. Review / Management Results review: No qualifying data available , Lab results 04/27/2022 7:52 EST Lactated Ringers Injection Begin Bag 1,000 mL mL 04/27/2022 7:50 EST SN - CAt - Case Attendee SN - CAt - Case Attendee SN - CAt - Case Attendee SN - CAt - Case Attendee SN - CAt - Role Performed Primary Surgeon SN - CAt - Role Performed Content Production Specialist 1 04/27/2022 7:46 EST Designated Person #1 We May Share RADHA Selby [phone] Designated Person #1 Relationship Spouse Height 147.3 cm Admission Weight 54.5 kg [place] Body Weight 40.88 kg BSA Admission 1.47 Body Mass Index 25.12 kg/m2 Status No, per patient Sensory Deficits None Infectious Disease Symptoms Patient states no symptoms Infectious Disease Recent Exposure No Alcohol and Drug Use No Employee of Institutional Living No Health Care Employee No History of Exposure to TB No History of Positive Chest X-Ray for TB No History of Positive TB Skin Test No Homeless No Known Immunosuppression No Recent Immigrant No Resident of Institutional Living No Bloody Sputum No Fatigue No Fever No Loss of Appetite No Night Sweats No Persistent Cough > 3 Weeks No Weight Loss No Barriers to Learning None evident Teaching Method Explanation Preferred Written Language German Preferred Spoken Language German Information Given by Patient Patient's Current Physicians Dr. Brewer Discharge To, Anticipated Home independently Prev Test Positive/Diagnosis w/COVID-19 No Current Quarantine/Isolated any Illness No Any Contact with Sick Animals/Birds No Traveled Anywhere in Last 30 Days No No Personal Devices, Patient Valuables Glasses Admission Note-Nursing Procedure/Therapy Intake 04/27/2022 7:45 EST Blood Glucose, Capillary 78 mg/dL LOW Antecubital Right 04/27/2022 21 gauge Peripheral IV Activity: Insert new site Peripheral IV Dressing Condition: Clean, Dry, Intact Peripheral IV Dressing Activity: Applied, Transparent dressing Peripheral IV Line Status/Patency: Continuous infusion, Good blood return Peripheral IV Line Care: Secured with tape Peripheral IV Site Condition: No complications Peripheral IV Equipment: Extension set Peripheral IV Number of Attempts: 1 04/27/2022 7:29 EST Height 147.3 cm Admission Weight 54.5 kg Weight Lbs 119.9 lb [place] Body Weight 40.88 kg Temperature Temporal Artery 36.0 DegC Apical Heart Rate 96 bpm Respiratory Rate 20 br/min Systolic Blood Pressure Non-Invasive 137 mmHg Diastolic Blood Pressure Non-Invasive 67 mmHg Primary Pain Intensity 0 Pain Scale Type 0-10 Pain scale Heart Rhythm Irregular Oxygen Therapy Room air Oxygen Saturation 100 % Abdomen Description Non-distended, Soft Urinary Elimination Voiding, no difficulties Skin Temperature Warm Skin Description [place], Normal for ethnicity, Dry Skin Integrity Intact Skin Moisture General Dry Neurological Symptoms Patient denies Extremity Movement Equal Characteristics of Speech Clear Level of Consciousness Alert Strength All Extremities Moderate Tone All Extremities Normal Sensation All Extremities Intact Affect/Behavior Appropriate, Calm, Cooperative Orientation Oriented x 4 Allergies Yes Consent Form Signed Yes Patient Dressed In Hospital gown History & Physical Update On Chart Yes History & Physical On Chart Yes Orientation Assessment Oriented x 4 Activity Status ADL Awake, Resting NPO Status Maintained Standard Safety ID band on, Allergy Band on, Call device within reach, Bed in low position, Wheels locked Allergy Band on and Verified Yes Patient ID Band on and Verified Yes Implants Verified Yes Pacemaker/AICD Verified Yes Anesthesia Consent Signed No Last Fluid Intake 04/26/2022 22:00 Last Food Intake 04/26/2022 8:00 Last Void 04/27/2022 6:00 . Assessment and Plan [place] [employer] Anesthesiologists (ASA) physical status classification: Class III. Anesthetic Preoperative Plan Anesthetic technique: MAC. Postoperative pain management: Per surgeon. Risks discussed: nausea, vomiting, sore throat, dental injury, hypotension, allergic reaction, serious complications. Informed consent: signed by patient. Digitally Signed by PAPIOT LORD on 04/27/2022 07:54 AM [facility]01-09-2023 Evaluation + Plan noteExtracted from: Title:Clinical Document Author:TATIANA YANCEY Date:03/23/22 [facility] ADMISSION HISTORY AN D PHYSICIAL CHIEF COMPLAINT: HISTORY OF PRESENT ILLNESS: REVIEW OF SYSTEMS: ACTIVE PROBLEMS: (11) Ascites (6309027292) Autoimmune hepatitis (4997626368) Cirrhosis of liver (72225912) Esophageal varices (67823769) Essential thrombocythemia (8776154697) Fatigue (142466128) Fibrosis of liver (426144128) Hepatitis A immune (450750408) HTN (hypertension) (2318640761) Lupus (741779567) Osteoporosis (033121073) MEDICATIONS: Active Inpt Meds: None Active PRN Meds: None One Time Meds: None Active IV Meds: Lactated Ringers Infusion 1,000 mL (LR 1,000 mL) Start: 03/23/22 7:29:00 EST, Rate: 50 mL/hr, 03/23/22 7:29:00 EST ALLERGIES: (1) sulfa drug FAMILY HISTORY: SOCIAL HISTORY: PHYSICAL EXAM: VITALS: [id number]JxvaQf(kg) 03/23 07:4536.3--958642ID77/09 54.5 24 Hr Tmax: 36.3 at 03/23 07:45 36 Hr Tmax: 36.3 at 03/23 07:45 Vital Signs are the last 5 in the past 48 hours. Weights display the last 5 within 7 days. Initial Wt: 03/23 54.5 kg 120 lb Current Wt: 03/23 54.5 kg 120 lb GENERAL: HEENT: CARDIOVASCULAR: RESPIRATORY: ABDOMEN: EXREMETIES: NEUROLOGICAL: PSYCHIATRIC: LABS: No 36hr Lab Data DIAGNOSTICS: IMPRESSION: PLAN: History and Physical Update I have examined the patient; reviewed the H&P and there are no changes to the H&P unless noted below. [facility] 01-09-2023 Hospital Discharge instructions Patient Education 03/23/2022 09:26:32 9 - AO Minor Esophagogastroduodenoscopy (05/26)(CUSTOM) Esophagogastroduodenoscopy This is an endoscopic procedure (a procedure that uses a device like a flexible telescope) that allows your caregiver to view the upper stomach and small bowel. This test allows your caregiver to look at the esophagus. The esophagus carries food from your mouth to your stomach. They can also look at your duodenum. This is the first part of the small intestine that attaches to the stomach. This maritza t is used to detect problems in the bowel such as ulcers and inflammation. MEANING OF TEST Your caregiver will go over the test results with you and discuss the importance and meaning of your results, as well as treatment options and the need for additional tests if necessary. OBTAINING THE TEST RESULTS Your caregiver s office will call you with the results of the test. POST SEDATION INSTRUCTIONS Rest at home today. Since your coordination may be impaired, be cautious on stairways, do not drive any vehicle or operate any heavy machinery, or use any sharp instruments for the remainder of the day. Do not drink any alcoholic beverages or make any major decisions for 24 hours. POST PROCEDURE INSTRUCTIONS Progress slowly with full liquids then resume previous diet and medications. Belching or passing of gas is to be expected. Notify the physician if you have severe chest pain, fever, or if difficulty when swallowing persists. 05/23/13 Custom 03/23/2022 09:26:09 Nausea and Vomiting, Adult Nausea and Vomiting, Adult Nausea is the feeling that you have an upset stomach or that you are about to vomit. Vomiting is when stomach contents are thrown up and out of the mouth as a result of nausea. Vomiting can make you feel weak and cause you to become dehydrated. Dehydration can make you feel tired and thirsty, cause you to have a dry mouth, and decrease how often you urinate. Older adults and people with other diseases or a weak disease-fighting system (immune system) are at higher risk for dehydration. It is important to treat your nausea and vomiting as told by your health care provider. Follow these instructions at home: Watch your symptoms for any changes. Tell your health care provider about them. Follow these instructions to care for yourself at home. Eating and drinking Take an oral rehydration solution (ORS). This is a drink that is sold at pharmacies and retail stores. Drink clear fluids slowly and in small amounts as you are able. Clear fluids include water, ice chips, low-calorie sports drinks, and fruit juice that has water added (diluted fruit juice). Eat bland, dund-ea-rwobcq foods in small amounts as you are able. These foods include bananas, applesauce, rice, lean meats, toast, and crackers. Avoid fluids that contain a lot of sugar or caffeine, such as energy drinks, sports drinks, and soda. Avoid alcohol. Avoid spicy or fatty foods. General instructions Take nlqr-gse-irvjflc and prescription medicines only as told by your health care provider. Drink enough fluid to keep your urine pale yellow. Wash your hands often using soap and water. If soap and water are not available, use hand fur floor worker. Make sure that all people in your household wash their hands well and often. Rest at home while you recover. Watch your condition for any changes. Breathe slowly and deeply when you feel nauseated. Keep all follow-up visits as told by your health care provider. This is important. Contact a health care provider if: Your symptoms get worse. You have new symptoms. You have a fever. You cannot drink fluids without vomiting. Your nausea does not go away after 2 days. You feel light-headed or dizzy. You have a headache. You have muscle cramps. You have a rash. You have pain while urinating. Get help right away if: You have pain in your chest, neck, arm, or jaw. You feel extremely weak or you faint. You have persistent vomiting. You have vomit that is bright red or looks like black coffee grounds. You have bloody or black stools or stools that look like tar. You have a severe headache, a stiff neck, or both. You have severe pain, cramping, or bloating in your abdomen. You have difficulty breathing, or you are breathing very quickly. Your heart is beating very quickly. Your skin feels cold and clammy. You feel confused. You have signs of dehydration, such as: ?Dark urine, very little urine, or no urine. ?Cracked lips. ?Dry mouth. ?Sunken eyes. ?Sleepiness. ?Weakness. These symptoms may represent a serious problem that is an emergency. Do not wait to see if the symptoms will go away. Get medical help right away. Call your local emergency services (911 in the [place] Do not drive yourself to the hospital. Summary Nausea is the feeling that you have an upset stomach or that you are about to vomit. As nausea getsworse, it can lead to vomiting. Vomiting can make you feel weak and cause you to become dehydrated. Follow instructions from your health care provider about eating and drinking to prevent dehydration. Take kudv-skf-vtpgxvc and prescription medicines only as told by your health care provider. Contact your health care provider if your symptoms get worse, or you have new symptoms. Keep all follow-up visits as told by your health care provider. This is important. This information is not intended to replace advice given to you by your health care provider. Make sure you discuss any questions you have with your health care provider. Document Released: 03/01/2006 Document Revised: 06/23/2019 Document Reviewed: 08/09/2018 [employer] Patient Education 2020 [employer]. 03/23/2022 09:25:58 Monitored Anesthesia Care, Care After Monitored Anesthesia Care, Care After These instructions provide you with information about caring for yourself after your procedure. Your health care provider may also give you more specific instructions. Your treatment has been plannedaccording to current medical practices, but problems sometimes occur. Call your health care provider if you have any problems or questions after your procedure. What can I expect after the procedure? After your procedure, you may: Feel sleepy for several hours. Feel clumsy and have poor balance for several hours. Feel forgetful about what happened after the procedure. Have poor judgment for several hours. Feel nauseous or vomit. Have a sore throat if you had a breathing tube during the procedure. Follow these instructions at home: For at least 24 hours after the procedure: Have a responsible adult stay with you. It is important to have someone help care for you until youare awake and alert. Rest as needed. Do not: ?Participate in activities in which you could fall or become injured. ?Drive. ?Use heavy machinery. ?Drink alcohol. ?Take sleeping pills or medicines that cause drowsiness. ?Make important decisions or sign legal documents. ?Take care of children on your own. Eating and drinking Follow the diet that is recommended by your health care provider. If you vomit, drink water, juice, or soup when you can drink without vomiting. Make sure you have little or no nausea before eating solid foods. General instructions Take flgn-bcu-rghqdws and prescription medicines only as told by your health care provider. If you have sleep apnea, surgery and certain medicines can increase your risk for breathing problems. Follow instructions from your health care provider about wearing your sleep device: ?Anytime you are sleeping, including during daytime naps. ?While taking prescription pain medicines, sleeping medicines, or medicines that make you drowsy. If you smoke, do not smoke without supervision. Keep all follow-up visits as told by your health care provider. This is important. Contact a health care provider if: You keep feeling nauseous or you keep vomiting. You feel light-headed. You develop a rash. You have a fever. Get help right away if: You have trouble breathing. Summary For several hours after your procedure, you may feel sleepy and have poor judgment. Have a responsible adult stay with you for at least 24 hours or until you are awake and alert. This information is not intended to replace advice given to you by your health care provider. Make sure you discuss any questions you have with your health care provider. Document Released: 06/21/2016 Document Revised: 05/30/2018 Document Reviewed: 06/21/2016 [employer] Patient Education 2020 [employer]. Follow Up Care 02/26/2022 13:56:12 With:TATIANA YANCEY MD Address: [address] [place] [phone] When: Unknown Comments:in one month [facility] 01-09-2023 Summary of episode note Discharge Instructions Thank you for allowing [facility] to assist you with your healthcare needs. The following is importantdischarge information regarding your hospital visit. Your Care Team MICHELLE MENSAH, ZEKE Denton What to do next Follow Up Appointments Follow Up with TATIANA YANCEY MD When Why: as needed Where: [address] [place] [address]- [phone] Allergies sulfa drug Medications Please ask your primary doctor or pharmacist before taking any other medication not listed, including over the counter drugs, herbal medications, vitamins and or supplements as they may interact withyour home medications. What How Much When Instructions Last Dose Unchanged carvedilol (carvedilol 6.25 mg oral tablet) 1 tab(s) by mouth Twice daily with meals Unchanged ezetimibe (ezetimibe 10 mg oral tablet) 1 tab(s) by mouth Every day Unchanged glipiZIDE (glipiZIDE 2.5 mg oral tablet, extended release) 1 tab(s) by mouth Once a day with a meal Unchanged levothyroxine (levothyroxine 50 mcg (0.05 mg) oral tablet) 1 tab(s) by mouth Once a day before a meal Unchanged spironolactone (spironolactone 25 mg oral tablet) 1 tab(s) by mouth Twice daily with meals Please take this list to your next doctor s visit. Bring all medications you take, including over the counter medications, herbals and other supplements with you to your doctor s visit. Patients and families are reminded to discard old lists and to update any records with all medication providers or retail pharmacies. Education Materials Esophagogastroduodenoscopy This is an endoscopic procedure (a procedure that uses a device like a flexible telescope) that allows your caregiver to view the upper stomach and small bowel. This test allows your caregiver to look at the esophagus. The esophagus carries food from your mouth to your stomach. They can also look at your duodenum. This is the first part of the small intestine that attaches to the stomach. This maritza t is used to detect problems in the bowel such as ulcers and inflammation. MEANING OF TEST Your caregiver will go over the test results with you and discuss the importance and meaning of your results, as well as treatment options and the need for additional tests if necessary. OBTAINING THE TEST RESULTS Your caregiver s office will call you with the results of the test. POST SEDATION INSTRUCTIONS Rest at home today. Since your coordination may be impaired, be cautious on stairways, do not drive any vehicle or operate any heavy machinery, or use any sharp instruments for the remainder of the day. Do not drink any alcoholic beverages or make any major decisions for 24 hours. POST PROCEDURE INSTRUCTIONS Progress slowly with full liquids then resume previous diet and medications. Belching or passing of gas is to be expected. Notify the physician if you have severe chest pain, fever, or if difficulty when swallowing persists. 05/23/13 Custom Nausea and Vomiting, Adult Nausea is the feeling that you have an upset stomach or that you are about to vomit. Vomiting is when stomach contents are thrown up and out of the mouth as a result of nausea. Vomiting can make you feel weak and cause you to become dehydrated. Dehydration can make you feel tired and thirsty, cause you to have a dry mouth, and decrease how often you urinate. Older adults and people with other diseases or a weak disease-fighting system (immune system) are at higher risk for dehydration. It is important to treat your nausea and vomiting as told by your health care provider. Follow these instructions at home: Watch your symptoms for any changes. Tell your health care provider about them. Follow these instructions to care for yourself at home. Eating and drinking Take an oral rehydration solution (ORS). This is a drink that is sold at pharmacies and retail stores. Drink clear fluids slowly and in small amounts as you are able. Clear fluids include water, ice chips, low-calorie sports drinks, and fruit juice that has water added (diluted fruit juice). Eat bland, xkua-sy-kokbge foods in small amounts as you are able. These foods include bananas, applesauce, rice, lean meats, toast, and crackers. Avoid fluids that contain a lot of sugar or caffeine, such as energy drinks, sports drinks, and soda. Avoid alcohol. Avoid spicy or fatty foods. General instructions Take zbva-ori-imkcdrp and prescription medicines only as told by your health care provider. Drink enough fluid to keep your urine pale yellow. Wash your hands often using soap and water. If soap and water are not available, use hand fur floor worker. Make sure that all people in your household wash their hands well and often. Rest at home while you recover. Watch your condition for any changes. Breathe slowly and deeply when you feel nauseated. Keep all follow-up visits as told by your health care provider. This is important. Contact a health care provider if: Your symptoms get worse. You have new symptoms. You have a fever. You cannot drink fluids without vomiting. Your nausea does not go away after 2 days. You feel light-headed or dizzy. You have a headache. You have muscle cramps. You have a rash. You have pain while urinating. Get help right away if: You have pain in your chest, neck, arm, or jaw. You feel extremely weak or you faint. You have persistent vomiting. You have vomit that is bright red or looks like black coffee grounds. You have bloody or black stools or stools that look like tar. You have a severe headache, a stiff neck, or both. You have severe pain, cramping, or bloating in your abdomen. You have difficulty breathing, or you are breathing very quickly. Your heart is beating very quickly. Your skin feels cold and clammy. You feel confused. You have signs of dehydration, such as: ? Dark urine, very little urine, or no urine. ? Cracked lips. ? Dry mouth. ? Sunken eyes. ? Sleepiness. ? Weakness. These symptoms may represent a serious problem that is an emergency. Do not wait to see if the symptoms will go away. Get medical help right away. Call your local emergency services (911 in the [place] Do not drive yourself to the hospital. Summary Nausea is the feeling that you have an upset stomach or that you are about to vomit. As nausea getsworse, it can lead to vomiting. Vomiting can make you feel weak and cause you to become dehydrated. Follow instructions from your health care provider about eating and drinking to prevent dehydration. Take ywbv-pil-eanymaf and prescription medicines only as told by your health care provider. Contact your health care provider if your symptoms get worse, or you have new symptoms. Keep all follow-up visits as told by your health care provider. This is important. This information is not intended to replace advice given to you by your health care provider. Make sure you discuss any questions you have with your health care provider. Document Released: 03/01/2006 Document Revised: 06/23/2019 Document Reviewed: 08/09/2018 [email or web address] Patient Education 2020 [employer] Monitored Anesthesia Care, Care After These instructions provide you with information about caring for yourself after your procedure. Your health care provider may also give you more specific instructions. Your treatment has been plannedaccording to current medical practices, but problems sometimes occur. Call your health care provider if you have any problems or questions after your procedure. What can I expect after the procedure? After your procedure, you may: Feel sleepy for several hours. Feel clumsy and have poor balance for several hours. Feel forgetful about what happened after the procedure. Have poor judgment for several hours. Feel nauseous or vomit. Have a sore throat if you had a breathing tube during the procedure. Follow these instructions at home: For at least 24 hours after the procedure: Have a responsible adult stay with you. It is important to have someone help care for you until youare awake and alert. Rest as needed. Do not: ? Participate in activities in which you could fall or become injured. ? Drive. ? Use heavy machinery. ? Drink alcohol. ? Take sleeping pills or medicines that cause drowsiness. ? Make important decisions or sign legal documents. ? Take care of children on your own. Eating and drinking Follow the diet that is recommended by your health care provider. If you vomit, drink water, juice, or soup when you can drink without vomiting. Make sure you have little or no nausea before eating solid foods. General instructions Take groe-xgr-tylcbjk and prescription medicines only as told by your health care provider. If you have sleep apnea, surgery and certain medicines can increase your risk for breathing problems. Follow instructions from your health care provider about wearing your sleep device: ? Anytime you are sleeping, including during daytime naps. ? While taking prescription pain medicines, sleeping medicines, or medicines that make you drowsy. If you smoke, do not smoke without supervision. Keep all follow-up visits as told by your health care provider. This is important. Contact a health care provider if: You keep feeling nauseous or you keep vomiting. You feel light-headed. You develop a rash. You have a fever. Get help right away if: You have trouble breathing. Summary For several hours after your procedure, you may feel sleepy and have poor judgment. Have a responsible adult stay with you for at least 24 hours or until you are awake and alert. This information is not intended to replace advice given to you by your health care provider. Make sure you discuss any questions you have with your health care provider. Document Released: 06/21/2016 Document Revised: 05/30/2018 Document Reviewed: 06/21/2016 [employer] Patient Education 2020 [employer] Additional Information VACCINATE! IT SAVES LIVES! Members of the community who have not yet received the COVID-19 vaccine and would like to receive it can visit one of [facility] vaccine clinics. There are many vaccine clinic locations within the [facility]. For locations and available times, please visit [email or web address] It is important to note that some COVID mobile vaccine clinics are held outdoors and may be canceled in rainy or stormy conditions. To learn more about pediatric vaccinations (ages 5-11), we invite you to visit the [employer] [facility] webpage. [email or web address] [email or web address] learn more about the COVID-19 vaccine, we invite you to visit the [employer] website for a list of frequently asked questions. [email or web address] [employer] Patient Portal Access Instructions: Stay connected with your healthcare team and access your personal medical information anytime with the [employer] Patient Portal.If you would like a full copy of your medical records, please contact the [facility] Medical Records Department, Wednesday through Wednesday between 8a.m. and 4:30p.m. Please follow the directions below to access the portal: 1.Access the email account you provided upon registration to the [facility].2.Look for an invitation email from [facility].3.Open the email and access the invitation link: Accept Invitation to [facility]4.Fill in the required barrios to create your account. Sign into www.[employer] with your username and password that you created in the above steps to stay up to date. You can then view a summary of results, a summary of your visits, and the ability to download your summaries to your computer or send the information securely to a physician. Remember that your healthcare information is confidential, so carefully consider who you will allow to register on the [facility] Patient Portal for access to your information. You can also access the [facility] Patient Portal on the [facility]. Simply click on Health Records under [place] and then click on the [employer] logo. HOW TO SAFELY DISPOSE OF PRESCRIPTION MEDICATIONS Please use one of the following methods to safely dispose of your unused medications. 1.Use a drug disposal kit: the drug disposal pouch allows you to safely discard your old and unuseddrugs. Ask your nurse to give you one when you are discharged.2.Visit a local take-back location: Many local pharmacies and police departments have programs that collect old and unwanted prescriptiondrugs. Call your local pharmacy or go to http://MarketBridge.Microco.sm/5T3Cz4m to find one close to you.3.Make use of household items: Use cat litter or old coffee grounds to dispose medications if other options arenot available. Mix your drugs with these household products, seal them in an airtight container andthrow it into the garbage. Call [facility]: [phone] to be sure your drugs can be disposed of in this way. Some medicines may require a different approach.4.Never flush your medications down the toilet. IF YOU HAVE BEEN PRESCRIBED AN OPIOID FOR PAIN If you have been prescribed an opioid (such as hydrocodone, oxycodone or morphine), it is critical to understand the possible side effects and risks of opioid pain medications. Even when taken as directed, opioids can have several side effects including: Tolerance, meaning you might need to take more of a medication for the same pain relief. Nausea, vomiting and/or constipation. Sleepiness, dizziness, dry mouth, confusion, depression or itching. Physical dependence, meaning you have withdrawal symptoms when a medication is stopped, can develop within a few days. KNOW YOUR RESPONSIBILITIES It is important to know exactly how much and how often to take the opioid pain medications you are prescribed. Never take opioids in higher amounts or more often than prescribed. Do not combine opioids with alcohol or other drugs that cause drowsiness, such as benzodiazepines, also known as benzos, including diazepam and alprazolam, muscle relaxants or sleep aids. Never sell or share prescription opioids. This is illegal. Store opioids in a secure place and out of reach of others (including children, family, friends and visitors). The last page of this document has been signed and retained as a CHART COPY. Signatures Patient Education Materials 9 - AO Minor Esophagogastroduodenoscopy (05/26)(CUSTOM) Nausea and Vomiting, Adult Monitored Anesthesia Care, Care After Medication Leaflets My discharge plan and instructions have been reviewed and explained to me and I,JAKY PRESTON understand my current condition and have read and understand these discharge instructions. I have received a written copy of the plan/instructions. If I have questions, I am aware that I should contactmy doctor. 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 Respiratory function: lungs are clear to auscultation. Respiratory support: none. CV function: Normal rate. Cardiovascular support: none. Pain. Nausea status: denies nausea. Postoperative hydration status: within normal limits. Digitally Signed by AGUSTÍN COSBY on 03/23/2022 09:14 AM [facility]01-09-2023 Note [place] ADMISSION HISTORY AND PHYSICIAL CHIEF COMPLAINT: HISTORY OF PRESENT ILLNESS: REVIEW OF SYSTEMS: ACTIVE PROBLEMS: (11) Ascites ([id number]) Autoimmune hepatitis (4923707877) Cirrhosis of liver (42769567) Esophageal varices (93263163) Essential thrombocythemia (7580163467) Fatigue (860977442) Fibrosis of liver (752528798) Hepatitis A immune (560626348) HTN (hypertension) (8692427930) Lupus (708183300) Osteoporosis (745699671) MEDICATIONS: Active Inpt Meds: None Active PRN Meds: None One Time Meds: None Active IV Meds: Lactated Ringers Infusion 1,000 mL (LR 1,000 mL) Start: 03/23/22 7:29:00 EST, Rate: 50 mL/hr, 03/23/22 7:29:00 EST ALLERGIES: (1) sulfa drug FAMILY HISTORY: SOCIAL HISTORY: PHYSICAL EXAM: VITALS: JrdgftJhukSRZdsdiKKIvD2AUX1TchlEf(kg) 03/23 07:4536.3--[id number]/09 54.5 24 Hr Tmax: 36.3 at 03/23 07:45 36 Hr Tmax: 36.3 at 03/23 07:45 Vital Signs are the last 5 in the past 48 hours. Weights display the last 5 within 7 days. Initial Wt: 03/23 54.5 kg 120 lb Current Wt: 03/23 54.5 kg 120 lb GENERAL: HEENT: CARDIOVASCULAR: RESPIRATORY: ABDOMEN: EXREMETIES: NEUROLOGICAL: PSYCHIATRIC: LABS: No 36hr Lab Data DIAGNOSTICS: IMPRESSION: PLAN: History and Physical Update I have examined the patient; reviewed the H&P and there are no changes to the H&P unless noted below. 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 Family's history: negative. Review of Systems Ear/Nose/Mouth/Throat: Negative. Respiratory: Negative. Cardiovascular: htn. Gastrointestinal: ascities, varacies, obese. Genitourinary: Negative. Endocrine: Negative. Musculoskeletal: Negative. Integumentary: Negative. Neurologic: Negative. Health Status Allergies: Allergic Reactions (Selected) Severity Not Documented Sulfa drug- No reactions were documented., Allergies (1) ActiveReaction sulfa drugNone Documented Current medications: (Selected) Inpatient Medications Ordered LR 1,000 mL: 50 mL/hr, Intravenous Documented Medications Documented carvedilol 6.25 mg oral tablet: 6.25 mg, 1 tab(s), Oral, BIDM, 0 Refill(s) ezetimibe 10 mg oral tablet: 10 mg, 1 tab(s), Oral, Daily, 0 Refill(s) glipiZIDE 2.5 mg oral tablet, extended release: 2.5 mg, 1 tab(s), Oral, qDayM, 0 Refill(s) levothyroxine 50 mcg (0.05 mg) oral tablet: 50 mcg, 1 tab(s), Oral, qDayAC, 0 Refill(s) spironolactone 25 mg oral tablet: 25 mg, 1 tab(s), Oral, BIDM, 0 Refill(s), Medications (1) Active Scheduled: (0) Continuous: (1) Lactated Ringers Infusion 1,000 mL 1,000 mL, Intravenous, 50 mL/hr PRN: (0) Problem list: Active Problems (11) Ascites Autoimmune hepatitis Cirrhosis of liver Esophageal varices Essential thrombocythemia Fatigue Fibrosis of liver Hepatitis A immune HTN (hypertension) Lupus Osteoporosis Histories Past Medical History: No active or resolved past medical history items have been selected or recorded. Family History: Diabetes mellitus type 2 Mother CAD - Coronary artery disease Mother Procedure history: CE - Cataract extraction ([id number]). Social History Social & Psychosocial Habits Alcohol 03/20/2022 Use: Past Tobacco 03/20/2022 Tobacco Use: Former smoker, quit more . Physical Examination Vital Signs(last 24 hrs) Last Charted BMI25.12 (MAR 23 07:33) Measurements from flowsheet : Measurements 03/23/2022 7:33 EST Height 147.3 cm Admission Weight 54.5 kg [place] Body Weight 40.88 kg BSA Admission 1.47 Body Mass Index 25.12 kg/m2 General: Alert and oriented. Airway: Normal temporomandibular joint mobility. Mallampati classification: II (soft palate, fauces, uvula visible). Head: Normocephalic. Dentition Evaluation: Own teeth. Neck: Supple. Respiratory: Lungs are clear to auscultation. Cardiovascular: Normal rate. Heart Sounds: Normal. Gastrointestinal: Soft. Musculoskeletal Normal range of motion. Integumentary: Intact. Neurologic: Alert, Oriented. Review / Management Results review: No qualifying data available , Lab results 03/23/2022 7:33 EST Designated Person #1 We May Share RADHA [facility] [phone] Designated Person #1 Relationship Spouse Height 147.3 cm Admission Weight 54.5 kg [place] Body Weight 40.88 kg BSA Admission 1.47 Body Mass Index 25.12 kg/m2 Status No, per patient Sensory Deficits None Infectious Disease Symptoms Patient states no symptoms Infectious Disease Recent Exposure No Alcohol and Drug Use No Employee of Institutional Living No Health Care Employee No History of Exposure to TB No History of Positive Chest X-Ray for TB No History of Positive TB Skin Test No Homeless No Known Immunosuppression No Recent Immigrant No Resident of Institutional Living No Bloody Sputum No Fatigue No Fever No Loss of Appetite No Night Sweats No Persistent Cough > 3 Weeks No Weight Loss No Barriers to Learning None evident Teaching Method Explanation Preferred Written Language German Preferred Spoken Language German Information Given by Patient Patient's Current Physicians Dr. Brewer Discharge To, Anticipated Home with family care Prev Test Positive/Diagnosis w/COVID-19 No Current Quarantine/Isolated any Illness No Any Contact with Sick Animals/Birds No Traveled Anywhere in Last 30 Days No No Personal Devices, Patient Valuables None Admission Note-Nursing Procedure/Therapy Intake . Assessment and Plan [place] [employer] Anesthesiologists (ASA) physical status classification: Class III. Anesthetic Preoperative Plan Anesthetic technique: MAC. Postoperative pain management: Per surgeon. Informed consent: signed by patient. Digitally Signed by AGUSTÍN COSBY on 03/23/2022 07:46 AM [facility]05-23-2022 Chief complaint Narrative - Reported * An interactive audio and video telecommunication system which permits real time communications between the patient (at the originating site) and provider (at the distant site) was utilized to providethis telehealth service. * Verbal consent was requested and obtained from JAKY PRESTON on this date, 08/04/2021 11:20 AM , for a telehealth visit. * AUTOIMMUNE HEPATITIS AND CIRRHOSIS [facility] [employer] [facility] Work Phone: History of Present illness Narrative* she is unchanged and so are her labs. she continues on prednisone 7.5 mg daily. * Upper Gastrointestinal: no abdominal pain, no eructation, no difficulty swallowing, no pain while swallowing, no regurgitation, no vomiting. * Lower Gastrointestinal: no abdominal swelling, no bloating, no fecal incontinence, no bowel urgency, no steatorrhea. * Liver Disease no alteration in sleep wake cycle, no ankle swelling, no cognitive impairment, no confusion, no icterus, no lower extremity edema, no muscle cramps. * Symptom History: * Modifying Factors: * Associated Symptoms: * Skin: there are no skin symptoms. * Ears: there are no ear symptoms. * Mouth/Throat/Teeth: there are no oral symptoms. * Neck: there are no neck symptoms. * Respiratory: there are no respiratory symptoms. * Gastrointenstinal: there are no gastrointestinal symptoms. * Musculoskeletal: there are no musculoskeletal symptoms. [facility] [employer] [facility] Work Phone: History of Present illness Narrative* As best we can tell she is doing ok with no bleeding, cognitive impairment or fluid overload but wehave no updated bloodwork or ultrasound * Upper Gastrointestinal: no abdominal pain, no eructation, no difficulty swallowing, no early satiety, no heartburn, no jaundiced. * Lower Gastrointestinal: bloating, but no abdominal swelling. * Liver Disease no alteration in sleep wake cycle, no ankle swelling, no cognitive impairment. * Symptom History: * Modifying Factors: * Associated Symptoms: * Skin: there are no skin symptoms. * Eyes: there are no eye symptoms. * Ears: there are no ear symptoms. [facility] [employer] [facility] Work Phone: Hospital course Narrative No data available for this section [facility] Summary Purpose Family History No Family History Records FoundUnknown Family Member Name Dates Details Family history of cardiac di sorder: Mother(V17.49, Z82.49) Status:Active Family history of diabetes m ellitus: Mother(V18.0, Z83.3) Status:Active Unknown Family Member Name Dates Details Family history of cardiac di sorder: Mother(V17.49, Z82.49) Status:Active Family history of diabetes m ellitus: Mother(V18.0, Z83.3) Status:Active Unknown Family Member Name Dates Details Family history of cardiac di sorder: Mother(V17.49, Z82.49) Status:Active Family history of diabetes m ellitus: Mother(V18.0, Z83.3) Status:Active Unknown Family Member Name Dates Details Family history of cardiac di sorder: Mother(V17.49, Z82.49) Status:Active Family history of diabetes m ellitus: Mother(V18.0, Z83.3) Status:Active Unknown Family Member Name Dates Details Family history of cardiac di sorder: Mother(V17.49, Z82.49) Status:Active Family history of diabetes m ellitus: Mother(V18.0, Z83.3) Status:Active Unknown Family Member Name Dates Details Family history of cardiac di sorder: Mother(V17.49, Z82.49) Status:Active Family history of diabetes m ellitus: Mother(V18.0, Z83.3) Status:Active Advance Directives No Advanced Directives Records FoundNo Advanced Directives Records FoundNo Advanced Directives Records FoundNo Advanced Directives Records FoundNo Advanced Directives Records FoundNo Advanced Directives Records Found Chief Complaint * A telephone visit (audio only) between the patient (at the originating site) and the provider (at the distant site) was utilized to provide this telehealth service. * Verbal consent was requested and obtained from JAKY PRESTON on this date, 12/23/2020 10:00 AM , for a telehealth visit. * Follow up autoimmune hepatitis with cirrhosis * A telephone visit (audio only) between the patient (at the originating site) and the provider (at the distant site) was utilized to provide this telehealth service. * Verbal consent was requested and obtained from JAKY PRESTON on this date, 12/23/2020 10:00 AM , for a telehealth visit. * Follow up autoimmune hepatitis with cirrhosis Additional Source Comments INFORMATION SOURCE (unrecogn ized section and content) DATE CREATED AUTHOR AUTHOR'S ORGANIZ ATION 02/07/2020 [facility] DATE CREATED AUTHOR AUTHOR'S ORGANIZ ATION 07/23/2021 [facility] DATE CREATED AUTHOR AUTHOR'S ORGANIZ ATION 03/30/2022 [facility] DATE CREATED AUTHOR AUTHOR'S ORGANIZ ATION 07/24/2022 [employer] DATE CREATED AUTHOR AUTHOR'S ORGANIZ ATION 09/25/2022 [facility] ([place]) Source Comments (unrecognize d section and content) In the event this informatio n is protected by the Federal Confidentiality of Alcohol and Drug Abuse Patient Records regulations: The Federal rules restrict any use of the information to criminally investigate or prosecute any alcohol or drug abuse patient.[facility] Care Teams (unrecognized sec tion and content) Care Team (unrecognized sect ion and content) Care Team Personnel Name: ZEKE CHAPMAN MD Member Role: Primary Care Physician Address: Address: [address] [place] [address]- Care Team Related Persons Name: JUDY PRESTON Address: [place] [address] Care Team Personnel Name: ZEKE CHAPMAN MD Member Role: Primary Care Physician Address: Address: [address] [place] [address] Care Team Related Persons Name: JUDY PRESTON Address: [place] [address] FOR RECORDS PERTAINING TO PATIENTS WHO ARE OR HAVE BEEN ENROLLED IN A CHEMICAL DEPENDENCY/SUBSTANCEABUSE PROGRAM, SOME INFORMATION MAY BE OMITTED. This clinical summary was aggregated from multiple sources. Caution should be exercised in using it in the provision of clinical care. This summary normalizes information from multiple sources, and as a consequence, information in this document may materially change the coding, format and clinical context of patient data. In addition, data may be omitted in some cases. CLINICAL DECISIONS SHOULD BE BASED ON THE PRIMARY CLINICAL RECORDS. [employer] [facility]. provides no warranty or guarantee of the accuracy or completeness of information in this document.
[2022-11-27 20:27] LABS: Mucous, Urine 0 SEEN /hpf (<or=2+); Red Blood Cells-Urine 0 SEEN /hpf (0-5)
[2022-11-27 20:35] LABS: Color, Urine Yellow (Yellow); Glucose, Dipstick 1000 mg/dl (Normal); Ketone-Dipstick 5 mg/dl (Negative); Leukocyte Esterase-Dipstick 500 /ul (Negative); Nitrite-Dipstick Negative (Negative); Occult Blood-Urine Negative /ul (Negative); Protein-Dipstick Negative (Negative); Urine Bilirubin Dipstick Negative (Negative); Urine Clarity Clear (Clear); Urine Urobilinogen Normal (Normal)
[2022-11-27 20:41] LABS: Bacteria RARE /hpf (None Seen); Squamous Epithelial Cells - UA 0-5 SEEN /hpf (5-10); White Blood Cells 10-25 SEEN /hpf (0-5)
[2022-11-27 21:17] LABS: Absolute Lymphocyte Count 0.25 X10^3/uL (0.83-4.51); Absolute Neutrophil Count 7.5 X10^3/uL (2.0-7.7); Basophil# 0.01 X10^3/uL; Basophil% 0.1 % (0-1); Hematocrit 20.5 % (37-47); Lymphocyte # 0.25 X10^3/ul (0.83-4.51); Mean Corp Hgb Conc 27.8 g/dL (32-36); Mean Corpuscular Hgb 27.1 pg (27.0-32.0); Mean Corpuscular Volume 97.6 fL (81-99); Mean Platelet Vol. 13.5 fl (6.2-12.0); Monocyte# 0.51 X10^3/uL; NRBC Flagged by Analyzer 1.9 % (0-5); Neutrophil # 7.52 X10^3/uL (2.7-7.7); POSITIVE COUNT YES; POSITIVE DIFFERENTIAL YES; POSITIVE MORPHOLOGY YES; Platelet Count 96 K/mm3 (150-450); RBC Distribution Width CV 18.6 % (11.6-14.6); RBC Distribution Width SD 65.2 fl (35.1-43.9); White Blood Count 8.5 K/mm3 (4.4-11.0)
[2022-11-27 21:48] LABS: Differential Indicated SCAN CRITERIA MET
[2022-11-27 21:49] LABS: Hemoglobin 5.7 g/dL (12.0-15.0)
[2022-11-27 21:52] LABS: Acanthocytes RARE; Anisocytosis 1+; Differential Comment SEE COMMENTS; Hypochromasia 1+; Macrocytosis 1+; Ovalocyte RARE; Platelet Estimate MOD DEC (ADEQ); Polychromasia RARE; Red Cell Morphology N CHROM NORMAL (NORM C&C)
[2022-11-27] MEDS: Pantoprazole Sodium 80 MG in 0.9% Normal Saline (50mL Bag) 15 ML 420 MG IV BOLUS (22:26)
[2022-11-27] MEDS: Pantoprazole Sodium 80 MG in 0.9% Normal Saline (100mL Bag) 80 ML 10 MG CONT INF (22:42)
--- NOTE | 2022-11-27 22:43 | PCM.HP.STD ---
HPI - General General Date of Admission: 11/27/22 Date of Service: 11/27/22 Chief Complaint: Weakness HPI Narrative JAKY PRESTON, is a 67 F with a significant history of cirrhosis from autoimmune hepatitis who is on daily prednisone presents emergency department with weakness. Because the patient was being weak for about a week and she felt that she may be having a flareup of her autoimmune hepatitis. She called Dr. Dinh her glazier artist and she was instructed to come to the emergency department Emergency department . She reports having dark stools which she attributed to a change in her diuretics. Patient was found to be severely anemic with hemoglobin of 5.7 Emergency department also reports black Jet tarry stools on rectal examination. [facility] Medical History Hypertension Home Medications calcium carbonate 500 mg-vitamin D3 5 mcg (200 unit) tablet 1 tab PO BIDCM #60 tabs 09/23/18 [Rx Last Taken Unknown] ferrous sulfate 325 mg (65 mg iron) tablet 325 mg PO BIDCM #60 tabs 09/23/18 [Rx Last Taken Unknown] spironolactone 25 mg tablet 25 mg PO BID #60 tabs 09/23/18 [Rx Last Taken Unknown] carvedilol 6.25 mg tablet 6.25 mg PO BID 07/15/22 [History Last Taken Unknown] ezetimibe 10 mg tablet 10 mg PO DAILY 07/15/22 [History Last Taken Unknown] glipizide 5 mg tablet 5 mg PO DAILY 07/15/22 [History Last Taken Unknown] levothyroxine 50 mcg capsule 50 mcg PO DAILY 07/15/22 [History Last Taken Unknown] prednisone 5 mg tablet 5 mg PO DAILY 07/15/22 [History Last Taken Unknown] amlodipine 5 mg tablet 5 mg PO DAILY 10/14/22 [History Last Taken Unknown] Allergy/AdvReac Type Severity Reaction Status Date / Time Sulfa (Sulfonamide Allergy Severe Swelling Verified 10/14/22 10:35 Antibiotics) Family History Other Diabetes Heart disease Surgical History H/O section History of cataract surgery Social History Smoking Status: Former smoker ROS ROS Narrative Pertinent positives and pertinent negatives as noted in HPI. All other systems were reviewed and are negative Vital Signs Vital Signs Vital Signs: 11/27/22 17:40 11/27/22 18:45 11/27/22 19:42 Temperature 97.6 F L Temperature Source Temporal Pulse Rate 106 H 97 Respiratory Rate 18 23 H Respiratory Effort Normal Non-Labored Respiratory Pattern Normal Blood Pressure 131/49 H 140/68 H Blood Pressure Mean 76 92 Pulse Ox 97 100 Oxygen Delivery Method Room Air Room Air Weight Weight: 53.887 kg Body Mass Index (BMI) 24.8 Physical Exam Narrative Physical exam: General: Well-nourished, well-developed. Head: Normocephalic, atraumatic, no tenderness Eyes: Vision is grossly intact. EOMI ENT, no trauma, moist mucous membranes, no rhinorrhea Neck: Nontender, No thyromegaly. CVS: Regular rate and rhythm. S1-S2 present. No murmur, gallop or rub. Respiratory : clear to auscultation bilaterally, chest wall nontender Abdomen: Soft, nontender, nondistended, normal bowel sounds, no masses : Deferred Back: Nontender, no CVA tenderness Extremities: Nontender full range of motion, no trauma Skin: Pale, no trauma, abrasions Neuro: Alert, oriented, cranial nerves II through XII grossly intact. Psychiatry: Normal mood. Normal affect. Not depressed. Not anxious. Results Lab / Micro Data 11/27/22 21:05 11/27/22 19:35 Labs: Laboratory Results - last 24 hr 11/27/22 19:35: Sodium 138, Potassium 4.3, Chloride 110 H, Carbon Dioxide 22.0, Anion Gap 6, BUN 33 H, Creatinine 0.73, Estim Creat Clear Calc 47.08, Est GFR (MDRD) Af Amer 102, Est GFR (MDRD) Non-Af 85, BUN/Creatinine Ratio 45.2 H, Glucose 238 H, Calcium 8.2 L, Total Bilirubin 0.70, AST 18, ALT 27, Alkaline Phosphatase 123 H, Troponin I High Sens 13, Total Protein 6.4, Albumin 2.6 L, Globulin 3.8, Albumin/Globulin Ratio 0.7 L 11/27/22 20:15: Urine Color Yellow, Urine Clarity Clear, Urine pH 6.0, Ur Specific [place] 1.020, Urine Protein Negative, Urine Glucose (UA) 1000 H, Urine Ketones 5 H, Urine Occult Blood Negative, Urine Nitrite Negative, Urine Bilirubin Negative, Urine Urobilinogen Normal, Ur Leukocyte Esterase 500 H, Urine RBC 0 SEEN, Urine WBC 10-25 SEEN, Ur Squamous Epith Cells 0-5 SEEN, Urine Bacteria RARE, Urine Mucus 0 SEEN 11/27/22 21:05: WBC 8.5, RBC 2.10 L, Hgb 5.7 L*, Hct 20.5 L, MCV 97.6, MCH 27.1, MCHC 27.8 L, RDW Std Deviation 65.2 H, RDW Coeff of Joel 18.6 H, Plt Count 96 L, MPV 13.5 H, Immature Gran % (Auto) 1.900 H, Neut % (Auto) 89.0 H, Lymph % (Auto) 3.0 L, [place] % (Auto) 6.0, Eos % (Auto) 0.0, Baso % (Auto) 0.1, Absolute Neuts (auto) 7.5, Absolute Lymphs (auto) 0.25 L, Nucleated RBC % 1.9, Differential Comment SEE COMMENTS, Diff Path Review May foll, Platelet Estimate MOD DEC, RBC Morphology N CHROM, Polychromasia RARE, Hypochromasia 1+, Anisocytosis 1+, Macrocytosis 1+, Ovalocytes RARE, Acanthocytes (Spur) RARE Micro: Microbiology 11/27/22 20:15 Nasal Secretion SARS-CoV-2 & FLU Antigen (Rapid) - Final Radiology Impression Chest X-Ray 11/27/22 19:58 IMPRESSION: Normal x-ray examination of the chest. Electronically Signed: Boogie Tuttle MD at 20:12 EDT , Assessment & Plan Assessment/Plan (1) Hypertension: QUALIFIERS: Hypertension type: primary hypertension Qualified Code(s): I10 - Essential (primary) hypertension (2) Diabetes mellitus: QUALIFIERS: Diabetes mellitus complication status: without complication Diabetes mellitus terminal gauger insulin use: without assisted use Diabetes mellitus type: type 2 Qualified Code(s): E11.9 - Type 2 diabetes mellitus without complications (3) Autoimmune hepatitis: (4) ABLA (acute blood loss anemia): PLAN: Plan ABLA Hemoglobin on presentation was 5.7. Hemoglobin on 09/02/2022 was 12.6 and on 01/29/2022 was 12.4. Admit to monitored bed on PCU IV fluids ordered. 2 units of blood ordered emergency department. Check H&H 1 hour after second unit of blood is completed. BUN is elevated at 33. There is a high as BUN in 3 years on hospital system. Protonix drip started at the emergency department and continued. General surgery consult Diabetes mellitus Blood glucose now within goal. Hold home glipizide. Accu-Chek correction scale insulin ordered. Hypertension Blood pressure is not within goal Home blood pressure medication continued. Trend blood pressure and adjust blood pressure medications. DVT prophylaxis: SCDs ordered.. Time spent in the patient's overall evaluation,decision-making process, review of diagnostic data, adjustment of management, discussion with other providers, nursing nursing and ancillary staff involved in patient's care documentation, 65 minutes. Charges/Coding Visit Charges Inpatient E&M: 23823 Init Hosp L3
--- NOTE | 2022-11-27 22:49 | EX.ED.DYSGE1 ---
HPI History of Present Illness Chief Complaint: Weakness Narrative Narrative: 67-year-old female presenting with weakness. She has no other symptoms. She denies chest pain, palpitations, shortness of breath. She has not had fever or chills. She denies nausea or vomiting. She denies abdominal pain, urinary complaints. She denies black or bloody stools. Patient not on any blood thinners. Patient states she has a history of autoimmune hepatitis which she is treated for with chronic steroids. She also takes Ezetimibe. [facility] Medical History (Updated 11/27/22 @ 23:[address] Tomer Lew MD) Hypertension Home Medications calcium carbonate 500 mg-vitamin D3 5 mcg (200 unit) tablet 1 tab PO BIDCM #60 tabs 09/23/18 [Rx Last Taken Unknown] ferrous sulfate 325 mg (65 mg iron) tablet 325 mg PO BIDCM #60 tabs 09/23/18 [Rx Last Taken Unknown] spironolactone 25 mg tablet 25 mg PO BID #60 tabs 09/23/18 [Rx Last Taken Unknown] carvedilol 6.25 mg tablet 6.25 mg PO BID 07/15/22 [History Last Taken Unknown] ezetimibe 10 mg tablet 10 mg PO DAILY 07/15/22 [History Last Taken Unknown] glipizide 5 mg tablet 5 mg PO DAILY 07/15/22 [History Last Taken Unknown] levothyroxine 50 mcg capsule 50 mcg PO DAILY 07/15/22 [History Last Taken Unknown] prednisone 5 mg tablet 5 mg PO DAILY 07/15/22 [History Last Taken Unknown] amlodipine 5 mg tablet 5 mg PO DAILY 10/14/22 [History Last Taken Unknown] Allergy/AdvReac Type Severity Reaction Status Date / Time Sulfa (Sulfonamide Allergy Severe Swelling Verified 10/14/22 10:35 Antibiotics) Family History (Updated 11/27/22 @ 22:[address] Tomer Lew MD) Other Diabetes Heart disease Surgical History H/O section History of cataract surgery Social History (Updated 11/27/22 @ 22:[address] Tomer Lew MD) Smoking Status: Former smoker ROS ROS ED Constitutional Constitutional ED: Denies chills, fever(s) or sweats Eyes Eyes: Denies blurry vision or change in vision ENT ENT ED: Denies ear pain or sore throat Cardiovascular Cardiovascular: Denies chest pain, palpitations or racing heartbeat Respiratory/Chest Respiratory/Chest: Denies cough, dyspnea or sputum Gastrointestinal Gastrointestinal: Denies abdominal pain, constipation, diarrhea, nausea or vomiting Genitourinary Genitourinary ED: Denies dysuria, hematuria or urinary frequency Musculoskeletal Musculoskeletal: Denies arthralgias, myalgias or neck pain Integumentary Denies abscess, Abrasions or rash Neurologic Neurologic: Denies headache(s), paresthesias or weakness Psychiatric Psychiatric: Denies anxiety, depression, suicidal ideation or suicidal thoughts Endocrine Endocrinology: Denies polydipsia or polyuria EXAM Physical Exam Const Vital Signs: 11/27/22 17:40 11/27/22 18:45 11/27/22 19:42 Temperature 97.6 F L Temperature Source Temporal Pulse Rate 106 H 97 Respiratory Rate 18 23 H Respiratory Effort Normal Non-Labored Respiratory Pattern Normal Blood Pressure 131/49 H 140/68 H Blood Pressure Mean 76 92 Pulse Ox 97 100 Oxygen Delivery Method Room Air Room Air Positive well nourished General Appearance ED: NAD HEENT Reports moist mucous membranes Negative for trauma Eyes PERRL and EOMs intact bilaterally General Eye ED: Negative for pale conjunctiva Chest Wall inspection of chest normal Resp normal respiratory effort and clear to auscultation bilaterally Effort and Inspection: Negative for retractions Auscultation: Negative for rales, rhonchi or wheezes Cardio regular rate and regular rhythm Back/Spine no CVA tenderness Extremity normal to inspection Neuro oriented x3 and CN's II-XII intact bilaterally MDM MDM MDM Narrative Medical decision making narrative: Patient presenting with weakness. She has no other symptoms. Differential includes COVID, influenza, pneumonia, UTI, anemia, GI bleed, electrolyte normalities, dehydration. CBC was obtained to assess white blood cell count, hemoglobin, platelets. MP to assess liver function, renal function, electrolytes. High-sensitivity troponin. Chest x-ray to rule out pneumonia. Also to rule out UTI. CBC returned with hemoglobin of 5.7 which is new. Patient denies any black or bloody distantly but after I came back and I discussed this with her she states that she is trying to change her diet because she does have dark stool. Hemoccult positive black tarry stool discussed with Dr. Rao could mended medical admission IV fluids and fusion he would take a consult in the hospital to determine whether he would do it inpatient or outpatient endoscopy. Patient is not anticoagulated. Protonix drip was started after 80 mg bolus was given. This is likely upper GI bleed. High-sensitivity troponin 13. Discussed with hospitalist for admission. Patient typed, screened, crossmatched for 2 units and likely will need more. Impression: 1. Upper GI bleed 2. Acute blood loss anemia 3. Weakness Lab Data Labs: Laboratory Results - last 24 hr 11/27/22 11/27/22 11/27/22 19:35 20:15 21:05 WBC 8.5 RBC 2.10 L Hgb 5.7 L* Hct 20.5 L MCV 97.6 MCH 27.1 MCHC 27.8 L RDW Std Deviation 65.2 H RDW Coeff of Joel 18.6 H Plt Count 96 L MPV 13.5 H Immature Gran % (Auto) 1.900 H Neut % (Auto) 89.0 H Lymph % (Auto) 3.0 L [place] % (Auto) 6.0 Eos % (Auto) 0.0 Baso % (Auto) 0.1 Absolute Neuts (auto) 7.5 Absolute Lymphs (auto) 0.25 L Nucleated RBC % 1.9 Differential Comment SEE COMMENTS Diff Path Review May foll Platelet Estimate MOD DEC RBC Morphology N CHROM Polychromasia RARE Hypochromasia 1+ Anisocytosis 1+ Macrocytosis 1+ Ovalocytes RARE Acanthocytes (Spur) RARE Sodium 138 Potassium 4.3 Chloride 110 H Carbon Dioxide 22.0 Anion Gap 6 BUN 33 H Creatinine 0.73 Estim Creat Clear Calc 47.08 Est GFR (MDRD) Af Amer 102 Est GFR (MDRD) Non-Af 85 BUN/Creatinine Ratio 45.2 H Glucose 238 H Calcium 8.2 L Total Bilirubin 0.70 AST 18 ALT 27 Alkaline Phosphatase 123 H Troponin I High Sens 13 Total Protein 6.4 Albumin 2.6 L Globulin 3.8 Albumin/Globulin Ratio 0.7 L Urine Color Yellow Urine Clarity Clear Urine pH 6.0 Ur Specific [place] 1.020 Urine Protein Negative Urine Glucose (UA) 1000 H Urine Ketones 5 H Urine Occult Blood Negative Urine Nitrite Negative Urine Bilirubin Negative Urine Urobilinogen Normal Ur Leukocyte Esterase 500 H Urine RBC 0 SEEN Urine WBC 10-25 SEEN Ur Squamous Epith Cells 0-5 SEEN Urine Bacteria RARE Urine Mucus 0 SEEN Crossmatch 11/27/22 22:18 WBC RBC Hgb Hct MCV MCH MCHC RDW Std Deviation RDW Coeff of Joel Plt Count MPV Immature Gran % (Auto) Neut % (Auto) Lymph % (Auto) [place] % (Auto) Eos % (Auto) Baso % (Auto) Absolute Neuts (auto) Absolute Lymphs (auto) Nucleated RBC % Differential Comment Diff Path Review Platelet Estimate RBC Morphology Polychromasia Hypochromasia Anisocytosis Macrocytosis Ovalocytes Acanthocytes (Spur) Sodium Potassium Chloride Carbon Dioxide Anion Gap BUN Creatinine Estim Creat Clear Calc Est GFR (MDRD) Af Amer Est GFR (MDRD) Non-Af BUN/Creatinine Ratio Glucose Calcium Total Bilirubin AST ALT Alkaline Phosphatase Troponin I High Sens Total Protein Albumin Globulin Albumin/Globulin Ratio Urine Color Urine Clarity Urine pH Ur Specific [place] Urine Protein Urine Glucose (UA) Urine Ketones Urine Occult Blood Urine Nitrite Urine Bilirubin Urine Urobilinogen Ur Leukocyte Esterase Urine RBC Urine WBC Ur Squamous Epith Cells Urine Bacteria Urine Mucus Crossmatch See Detail Radiography Diagnostic Testing: Clinical Impression(s) from Imaging Studies Chest X-Ray 11/27/22 19:58 IMPRESSION: Normal x-ray examination of the chest. Electronically Signed: Boogie Tuttle MD at 20:12 EDT , Discharge Plan Disposition Disposition: Acute Care Hospital [facility] Discharge Date/Time: 11/27/22 23:31
[2022-11-27 22:50] VITALS: BP 120/64; PULSE 106; RESP 19; TEMP 36.6; O2SAT 95
--- OUTSIDE RECORDS SUMMARY | 2022-11-27 23:19 | XMS RPT_ITS | CCD ---
Author Name Unknown Address [address] [facility] [facility] [address] [place] [address] Organization [facility] Care Team Providers Care Study Abroad Coordinator Name Role Phone Zeke Chapman Unavailable Zeke [...] Translations: [Sulfa Drugs] Drug Allergy Unknown [facility] [address] [facility] Work Phone: (5 sources) Sulfonamides (Antibiotic); Translations: [Sulfa Drugs] Allergy to drug (finding) Unknown [facility] [address] [facility] Work Phone: (1 source) Sulfamethoxazole / Trimethoprim Drug Allergy 9 [facility] Work Phone: (2 sources) Sulfonamides (Antibiotic); Translations: [sulfa drugs] Drug allergy [facility] Medications Current Medications Medication Drug Class(es) Dates [...] Non-Invasive [address] TATIANA YANCEY MD [facility] 04-27-2022 10:05-0500 Heart rate 99 /min DR TATIANA YANCEY MD [facility] 04-27-2022 10:05-0500 Respiratory rate 14 /min DR TATIANA YANCEY MD [facility] 04-27-2022 10:05-0500 Systolic Blood Pressure Non-Invasive [address] TATIANA YANCEY MD [facility] 04-27-2022 10:00-0500 Diastolic Blood Pressure Non-Invasive [address] TATIANA YANCEY MD [facility] 04-27-2022 10:00-0500 Heart rate 93 /min DR TATIANA YANCEY MD [facility] 04-27-2022 10:00-0500 Systolic Blood Pressure Non-Invasive [address] TATIANA YANCEY MD [facility] 04-27-2022 09:55-0500 Diastolic Blood Pressure Non-Invasive [address] TATIANA YANCEY MD [facility] 04-27-2022 09:55-0500 Heart rate 95 /min DR TATIANA YANCEY MD [facility] 04-27-2022 09:55-0500 Respiratory rate 14 /min DR TATIANA YANCEY MD [facility] 04-27-2022 09:55-0500 Systolic Blood Pressure Non-Invasive [address] TATIANA YANCEY MD [facility] 04-27-2022 09:45-0500 Respiratory Rate - Anes 5 br/min DR TATIANA YANCEY MD [facility] 04-27-2022 09:40-0500 Respiratory Rate - Anes 36 br/min DR TATIANA YANCEY MD [facility] 04-27-2022 09:35-0500 Respiratory Rate - Anes 28 br/min DR TATIANA YANCEY MD [facility] 04-27-2022 07:46-0500 Body height 147.[address] TATIANA YANCEY MD [address] [place] [address] 04-27-2022 07:46-0500 Body weight 54.[address] TATIANA YANCEY MD [address] [place] [address] 04-27-2022 07:46-0500 Body weight 25.12 kg/m2 DR TATIANA YANCEY MD [facility] 04-27-2022 07:29-0500 Body height 147.[address] TATIANA YANCEY MD [facility] 04-27-2022 07:29-0500 Body temperature 96.8 [degF] DR TATIANA YANCEY MD [facility] 04-27-2022 07:29-0500 Body weight 54.[address] TATIANA YANCEY MD [facility] 04-27-2022 07:29-0500 Heart rate 96 /min DR TATIANA YANCEY MD [facility] 03-23-2022 09:24-0500 Diastolic Blood Pressure Non-Invasive [address] TATIANA YANCEY MD [facility] 03-23-2022 09:24-0500 Heart rate 88 /min DR TATIANA YANCEY MD [facility] 03-23-2022 09:24-0500 Respiratory rate 15 /min DR TATIANA YANCEY MD [facility] 03-23-2022 09:24-0500 Systolic Blood Pressure Non-Invasive [address] TATIANA YANCEY MD [facility] 03-23-2022 09:19-0500 Heart rate 96 /min DR TATIANA YANCEY MD [facility] 03-23-2022 09:13-0500 Body temperature 97.52 [degF] DR TATIANA YANCEY MD [facility] 03-23-2022 09:13-0500 Diastolic Blood Pressure Non-Invasive [address] TATIANA YANCEY MD [facility] 03-23-2022 09:13-0500 Heart rate 100 /min DR TATIANA YANCEY MD [facility] 03-23-2022 09:13-0500 Respiratory rate 26 /min DR TATIANA YANCEY MD [facility] 03-23-2022 09:13-0500 Systolic Blood Pressure Non-Invasive [address] TATIANA YANCEY MD [facility] 03-23-2022 09:10-0500 Diastolic Blood Pressure Non-Invasive [address] TATIANA YANCEY MD [facility] 03-23-2022 09:10-0500 Respiratory Rate - Anes 9 br/min DR TATIANA YANCEY MD [facility] 03-23-2022 09:10-0500 Systolic Blood Pressure Non-Invasive [address] TATIANA YANCEY MD [facility] 03-23-2022 09:05-0500 Respiratory Rate - Anes 22 br/min DR TATIANA YANCEY MD [facility] 03-23-2022 09:00-0500 Respiratory Rate - Anes 19 br/min DR TATIANA YANCEY MD [facility] 03-23-2022 07:45-[address] TATIANA YANCEY MD [facility] 03-23-2022 07:45-[address] TATIANA YANCEY MD [facility] 03-23-2022 07:45-0500 Body temperature 97.34 [degF] DR TATIANA YANCEY MD [facility] 03-23-2022 07:45-0500 Heart rate 95 /min DR TATIANA YANCEY MD [facility] 03-23-2022 07:45-0500 Respiratory rate 18 /min DR TATIANA YANCEY MD [facility] 03-23-2022 07:33-0500 Body height 147.[address] TATIANA YANCEY MD [facility] 03-23-2022 07:33-0500 Body weight 54.[address] TATIANA YANCEY MD [facility] 03-23-2022 07:33-0500 Body weight 25.12 kg/m2 DR TATIANA YANCEY MD [facility] Encounters Encounter Date Encounter Type Care Provider Facility Start: 09-18-2022 End: 09-23-2022 ambulatory SUPRIYA CHAPA MD Facility:A Start: 04-28-2022 AUDIT Zeke sharma Work Phone: [facility] Work Phone: Start: 04-27-2022 End: 04-27-[address] TATIANA YANCEY MD Facility:B Start: 04-27-2022 End: 04-27-[address] TATIANA YANCEY MD [facility] Start: 03-30-2022 ambulatory Zeke Buckley lity:[id number] Start: 03-23-2022 End: 03-23-[address] TATIANA YANCEY MD Facility:B Start: 03-23-2022 End: 03-23-[address] TATIANA YANCEY MD [facility] Start: 08-04-2021 Office outpatient vi sit 15 minutes Zeke Chapman Work Phone: NF-Krppbjxwoaabszgu-Z [place] [address] [facility] Work Phone: Start: 08-04-2021 Patient encounter procedure Zeke Chapman Work Phone: OP-Gzeqfiwjzyswbeqr-D [place] [address] [facility] Work Phone: Start: 08-04-2021 ambulatory Zeke Buckley lity:[id number] Start: 07-02-2021 End: 07-02-2021 Subsequent hospital visit by physician Supriya Chapa MD Work Phone: [facility] Procedures Date Procedure Procedure Detail Performing Clinician Cataract surgery Zeke estrada Work Phone: section Zeke estrada Work Phone: Extraction of cataract DR BROOKE YANCEY MD Plan of Treatment Date Care Activity Detail Author Start: 11-13-2021 Influenza vaccination INFLUENZA (Sea son Ended) [facility] Start: 2021 ADVANCE DIRECTIVE DISCUSSION ADVANCE DIRECTIVE DISCUSSION [facility] Start: 2021 BONE DENSITY BONE DENSITY [facility] Start: 2021 PNEUMOVAX AGE 65 AND OVER WITH 5YR LOOKBACK (#1) PNEUMOVAX AGE 65 AND OVER WITH 5YR LOOKBACK (#1) [facility] Start: 09-20-2011 DIABETES SCREEN DIABETES SCREEN [facility] Start: 2006 SHINGRIX VACCINE (1 of 2) SHINGRIX V ACCINE (1 of 2) [facility] Start: 2001 COLOGUARD (FIT-DNA) COLOGUARD (FIT-D NA) [facility] Start: 2001 Colonoscopy COLONOSCOPY [facility] Start: 2001 COLORECTAL CANCER SCREENING COLORECTAL CANCER SCREENING [facility] Start: [address] COLONOGRAPHY [facility] Start: 2001 FECAL OCCULT BLOOD FECAL OCCULT BLOO D [facility] Start: 2001 LIPID SCREEN LIPID SCREEN [facility] Start: 2001 SIGMOIDOSCOPY SIGMOIDOSCOPY [facility] Start: 1996 Mammography MAMMOGRAM [facility] Start: 06-27-1975 Urine microalbumin profile DTAP,TDAP ,TD (1 - Tdap) [facility] Start: 1974 HIV SCREENING HIV SCREENING [facility] Start: 1968 Adult depression scr eening assessment DEPRESSION SCREENING [facility] Start: 1961 COVID-19 VACCINE (1) COVID-19 VACCIN E (1) [facility] Payers Date Payer Category Payer Medicare [id number] 2008 Unknown ANTHEM BLUE CARD PPO OOS [id number] 2008-Present [phone] [facility] [id number] [place] [address] PPO [id number] 1955 Unknown [id number] 1955 Unknown [id number] 1955 Unknown [id number] 1955 Unknown [id number] 1955 Unknown [id number] Unknown Social History Date Type Detail Facility Former smoker Former smoker [facility] [address] [facility] Work Phone: Start: 03-20-2022 Tobacco smoking stat [facility] Ex-smoker [facility] End: 10-02-2007 History of tobacco use Current smoker [facility] Start: 09-19-2008 Alcohol intake Not Asked Subhash dill [facility] Start: 1955 Sex Assigned At Not on file C [facility] Sex Assigned At Female [facility] Functional Status Date Assessment Result Facility 04-27-[address] [facility] 04-27-[address] [facility] 03-23-[address] [facility] 03-23-[address] [facility] Mental Status Date Assessment Result Facility 04-27-2022 [facility] 03-23-2022 Mental Status Oriented x 4 [facility] Clinical Notes 08-04-2021 to 04-27-2022 Note Date & Type Note Facility CAVENDISH ADMISSION HISTORY AN D PHYSICIAL CHIEF COMPLAINT: HISTORY OF PRESENT ILLNESS: REVIEW OF SYSTEMS: ACTIVE PROBLEMS: (11) Ascites (2039182855) Autoimmune hepatitis (7353295333) Cirrhosis of liver (56122581) Esophageal varices (68852757) Essential thrombocythemia (7044345333) Fatigue (795055173) Fibrosis of liver (990599178) Hepatitis A immune (655856658) HTN (hypertension) (6640286539) Lupus (102384713) Osteoporosis (092676917) MEDICATIONS: Active Inpt Meds: None Active PRN Meds: None One Time Meds: None Active IV Meds: Lactated Ringers Infusion 1,000 mL (LR 1,000 mL) Start: 04/27/22 7:51:00 EST, Rate: 50 mL/hr, 04/27/22 7:51:00 EST ALLERGIES: (1) sulfa drug FAMILY HISTORY: SOCIAL HISTORY: PHYSICAL EXAM: VITALS: IeujgwCgtmYKVmmsxXSFyE9ZMD9ScmcZi(kg) 04/27 07:2936.0--8406489MD04/13 54.5 04/27 54.5 24 Hr Tmax: 36.0 [...] LABS: 36hr Labs 04/27 0745 Blood Glucose, Nnwirpjyl28A Blood Glucose, Yrqacasiv43A DIAGNOSTICS: IMPRESSION: PLAN: History and Physical Update I have examined the patient; reviewed the H&P and there are no changes to the H&P unless noted below. [facility] 02-13-2023 Hospital Discharge instructions Patient Education 04/27/2022 [...] before eating solid foods. General instructions Take crhw-vpf-kyrzrde and prescription medicines only as told by [...] 06/21/2016 Document Revised: 05/30/2018 Document Reviewed: 06/21/2016 [employer] Patient Education 2020 [employer]. 04/27/2022 09:53:41 9 - AO Minor Esophagogastroduodenoscopy [...] Care 04/02/2022 14:52:05 With:TATIANA YANCEY MD Address: [facility] [address] [address] [phone] When: Unknown Comments:Follow-up as needed [facility] 02-13-2023 Summary of episode note Discharge Instructions Thank you for allowing [facility] to assist you with your healthcare needs. The following is importantdischarge information regarding your hospital visit. Your Care Team MICHELLE MENSAH, ZEKE Denton Your Diagnosis EGD WITH BANDING What to do next Follow Up Appointments Follow Up with TATIANA YANCEY MD When Why: Follow-up as needed Where: [facility] [address] [address] [address] [phone] Allergies sulfa drug Medications Please ask your [...] before eating solid foods. General instructions Take ruzi-dpx-vfbopat and prescription medicines only as told by [...] 06/21/2016 Document Revised: 05/30/2018 Document Reviewed: 06/21/2016 [employer] Patient Education 2020 [employer]. Esophagogastroduodenoscopy This is an endoscopic procedure (a [...] to receive it can visit one of [facility] vaccine clinics. There are many vaccine clinic locations within the [facility]. For locations and available times, please visit [email or web address]/. It is important to note that some COVID mobile vaccine clinics are held outdoors and may be canceled in rainy or stormy conditions. To learn more about pediatric vaccinations (ages 5-11), we invite you to visit the [facility] webpage. https://www.[email or web address]/pages/6283-Rlbog-Zqnlzfptpvg-Uqrzzmjgwz-Uigyu-Jnu stions.htmlTo learn more about the COVID-19 vaccine, we invite you to visit the [facility] website for a list of frequently asked questions. [email or web address]://[email or web address]/[email or web address]-[email or web address]-[email or web address] _Asked-Questions.pdf [facility] Patient Portal Access Instructions: Stay connected with your healthcare team and access your personal medical information anytime with the [facility] Patient Portal.If you would like a full copy of your medical records, please contact the [facility] Medical Records Department, Wednesday through Wednesday between 8a.m. and 4:30p.m. Please follow the directions below to access the portal: 1.Access the email account you provided upon registration to the hospital.2.Look for an invitation email from [facility].3.Open the email and access the invitation link: Accept Invitation to [facility]4.Fill in the required barrios to create your account. Sign into www.[facility] with your username and password that you [...] you will allow to register on the [facility] Patient Portal for access to your information. You can also access the [facility] Patient Portal on the [employer] denita. Simply click on Health Records under [facility] and then click on the [facility] logo. [...] Call your local pharmacy or go to [email or web address] to find one close to you.3.Make use of household items: Use cat litter or old coffee grounds to dispose medications if other options arenot available. Mix your drugs with these household products, seal them in an airtight container andthrow it into the garbage. Call [facility]: [phone] to be sure your drugs can be [...] am aware that I should contactmy doctor. Patient/Media Technician Signature: Date/Time: Relationship to Patient: Witness Name/Signature: Date/Time: [facility]02-13-2023 Anesthesiology Consult note Patient: JAKY PRESTON Age: 66 years Sex: Female : 1955 Associated Diagnoses: None Author: PAPITO LORD APRN-ETYMOLOGY TEACHER Assessment Postanesthesia assessment Vitals: Vital signs from [...] by PAPITO LORD on 04/27/2022 09:51 AM [facility]02-13-2023 Note CAVENDISH ADMISSION HISTORY AND PHYSICIAL CHIEF COMPLAINT: HISTORY OF PRESENT ILLNESS: REVIEW OF SYSTEMS: ACTIVE PROBLEMS: (11) Ascites (8155653402) Autoimmune hepatitis (5722820755) Cirrhosis of liver (25474084) Esophageal varices (31891050) Essential thrombocythemia (5274472446) Fatigue (186358334) Fibrosis of liver (432798319) Hepatitis A immune (449326555) HTN (hypertension) (8411790930) Lupus (480983884) Osteoporosis (082485547) MEDICATIONS: Active Inpt Meds: None Active PRN Meds: None One Time Meds: None Active IV Meds: Lactated Ringers Infusion 1,000 mL (LR 1,000 mL) Start: 04/27/22 7:51:00 EST, Rate: 50 mL/hr, 04/27/22 7:51:00 EST ALLERGIES: (1) sulfa drug FAMILY HISTORY: SOCIAL HISTORY: PHYSICAL EXAM: VITALS: CsuxadAjqyIWVbihgJQRvK8GEB1ZjilXs(kg) 04/27 07:2936.0--2468197ZS24/13 54.5 04/27 54.5 24 Hr Tmax: 36.0 [...] LABS: 36hr Labs 04/27 0745 Blood Glucose, Ytvkugoia40V Blood Glucose, Sshlxytvi28O DIAGNOSTICS: IMPRESSION: PLAN: History and Physical Update I have examined the patient; reviewed the H&P and there are no changes to the H&P unless noted below. Digitally Signed by TATIANA YANCEY MD on 04/27/2022 09:27 AM [facility]02-13-2023 Anesthesiology Consult note Patient: JAKY PRESTON Age: 66 years Sex: Female : 1955 Associated Diagnoses: None Author: PAPITO LORD PORTRAIT CONSULTANT-ETYMOLOGY TEACHER Preoperative Information Anesthesia history Patient's history: negative. [...] Mother Procedure history: CE - Cataract extraction (6414086001). Social History Social & Psychosocial Habits Alcohol [...] Resp Rate 20 br/min (APR 27 07:29) GOY436 mmHg (APR 27:29) DBP67 mmHg (APR 27:29) BMI25.12 (APR 27 07:46) Measurements from flowsheet : Measurements 04/27/2022 7:46 EST Height 147.3 cm Admission Weight 54.5 kg [place] Body Weight 40.88 kg BSA Admission 1.47 Body Mass Index 25.12 kg/m2 04/27/2022 7:29 EST Height 147.3 cm Admission Weight 54.5 kg Weight Lbs 119.9 lb [place] Body Weight 40.88 kg Pain assessment: Pain [...] Surgeon SN - CAt - Role Performed Franchise Development Manager 1 04/27/2022 7:46 EST Designated Person #1 We May Share RADHA Selby [phone] Designated Person #1 Relationship Spouse Height 147.3 cm Admission Weight 54.5 kg [place] Body Weight 40.88 kg BSA Admission 1.47 [...] evident Teaching Method Explanation Preferred Written Language Chilean Preferred Spoken Language Chilean Information Given by Patient Patient's Current Physicians [...] Weight 54.5 kg Weight Lbs 119.9 lb [place] Body Weight 40.88 kg Temperature Temporal Artery [...] no difficulties Skin Temperature Warm Skin Description Shirley, Normal for ethnicity, Dry Skin Integrity Intact [...] Void 04/27/2022 6:00 . Assessment and Plan [place] Society of Anesthesiologists (ASA) physical status classification: Class III. Anesthetic Preoperative Plan Anesthetic technique: MAC. Postoperative pain management: Per surgeon. Risks discussed: nausea, vomiting, sore throat, dental injury, hypotension, allergic reaction, serious complications. Informed consent: signed by patient. Digitally Signed by PAPITO LORD on 04/27/2022 07:54 AM [facility]01-09-2023 Evaluation + Plan noteExtracted from: Title:Clinical Document Author:TATIANA YANCEY Date:03/23/22 CAVENDISH ADMISSION HISTORY AN D PHYSICIAL CHIEF COMPLAINT: HISTORY OF PRESENT ILLNESS: REVIEW OF SYSTEMS: ACTIVE PROBLEMS: (11) Ascites (3037952586) Autoimmune hepatitis (3682433039) Cirrhosis of liver (45556603) Esophageal varices (64903990) Essential thrombocythemia (8069670154) Fatigue (561496038) Fibrosis of liver (875256278) Hepatitis A immune (425599002) HTN (hypertension) (8593301053) Lupus (403934305) Osteoporosis (410524602) MEDICATIONS: Active Inpt Meds: None Active PRN Meds: None One Time Meds: None Active IV Meds: Lactated Ringers Infusion 1,000 mL (LR 1,000 mL) Start: 03/23/22 7:29:00 EST, Rate: 50 mL/hr, 03/23/22 7:29:00 EST ALLERGIES: (1) sulfa drug FAMILY HISTORY: SOCIAL HISTORY: PHYSICAL EXAM: VITALS: RldmueDlunFSPsicvOSHuB8UHB0DfvlCl(kg) 03/23 07:4536.3--742803RJ68/09 54.5 24 Hr Tmax: 36.3 at 03/23 [...] changes to the H&P unless noted below. [facility] 01-09-2023 Hospital Discharge instructions Patient Education 03/23/2022 [...] water added (diluted fruit juice). Eat bland, susy-if-zaelmb foods in small amounts as you are able. These foods include bananas, applesauce, rice, lean meats, toast, and crackers. Avoid fluids that contain a lot of sugar or caffeine, such as energy drinks, sports drinks, and soda. Avoid alcohol. Avoid spicy or fatty foods. General instructions Take qgiz-vqj-ibftcyo and prescription medicines only as told by your health care provider. Drink enough fluid to keep your urine pale yellow. Wash your hands often using soap and water. If soap and water are not available, use hand doughmaker. Make sure that all people in your [...] eating and drinking to prevent dehydration. Take mdwo-iuq-cpsenhz and prescription medicines only as told by [...] 03/01/2006 Document Revised: 06/23/2019 Document Reviewed: 08/09/2018 [employer] Patient Education 2020 [employer]. 03/23/2022 09:25:58 Monitored Anesthesia Care, Care After [...] before eating solid foods. General instructions Take vmzv-cdx-mqnepar and prescription medicines only as told by [...] 06/21/2016 Document Revised: 05/30/2018 Document Reviewed: 06/21/2016 [employer] Patient Education 2020 [employer]. Follow Up Care 02/26/2022 13:56:12 With:TATIANA YANCEY MD Address: [address] [place] [phone] [phone] When: Unknown Comments:in one month [facility] 01-09-2023 Summary of episode note Discharge Instructions Thank you for allowing [facility] to assist you with your healthcare needs. The following is importantdischarge information regarding your hospital visit. Your Care Team MICHELLE MENSAH, ZEKE Denton What to do next Follow Up Appointments Follow Up with TATIANA YANCEY MD When Why: as needed Where: [address] [place] [address] [phone] Allergies sulfa drug Medications Please ask your [...] water added (diluted fruit juice). Eat bland, amzc-xh-efeyxi foods in small amounts as you are able. These foods include bananas, applesauce, rice, lean meats, toast, and crackers. Avoid fluids that contain a lot of sugar or caffeine, such as energy drinks, sports drinks, and soda. Avoid alcohol. Avoid spicy or fatty foods. General instructions Take rdja-ruu-bicsuzx and prescription medicines only as told by your health care provider. Drink enough fluid to keep your urine pale yellow. Wash your hands often using soap and water. If soap and water are not available, use hand doughmaker. Make sure that all people in your [...] eating and drinking to prevent dehydration. Take yrhs-mcc-sgprmuk and prescription medicines only as told by [...] 03/01/2006 Document Revised: 06/23/2019 Document Reviewed: 08/09/2018 [employer] Patient Education 2020 [employer] Monitored Anesthesia Care, Care After These [...] before eating solid foods. General instructions Take ovoh-rzf-pbuezte and prescription medicines only as told by [...] Document Reviewed: 06/21/2016 Elsevier Patient Education 2020 [employer]. Additional Information VACCINATE! IT SAVES LIVES! Members of the community who have not yet received the COVID-19 vaccine and would like to receive it can visit one of [facility] vaccine clinics. There are many vaccine clinic locations within the [facility]. For locations and available times, please visit [email or web address]/. It is important to note that some COVID mobile vaccine clinics are held outdoors and may be canceled in rainy or stormy conditions. To learn more about pediatric vaccinations (ages 5-11), we invite you to visit the [facility] webpage. https://www.[email or web address]/pages/[email or web address]-Lcgfc-Crxrnjljfdq-Mbeqqgkkhk-Koflq-Oqo stions.htmlTo learn more about the COVID-19 vaccine, we invite you to visit the [employer] website for a list of frequently asked questions. [email or web address]/[email or web address] _[email or web address].pdf [facility] Patient Portal Access Instructions: Stay connected with your healthcare team and access your personal medical information anytime with the [facility] Patient Portal.If you would like a full copy of your medical records, please contact the [facility] Medical Records Department, Wednesday through Wednesday between 8a.m. and 4:30p.m. Please follow the directions below to access the portal: 1.Access the email account you provided upon registration to the [facility].2.Look for an invitation email from [facility].3.Open the email and access the invitation link: Accept Invitation to [facility]4.Fill in the required barrios to create your account. Sign into www.[facility] with your username and password that you [...] you will allow to register on the [facility] Patient Portal for access to your information. You can also access the [facility] Patient Portal on the [employer] denita. Simply click on Health Records under [facility] and then click on the [employer] logo. HOW TO SAFELY DISPOSE OF PRESCRIPTION [...] Call your local pharmacy or go to [email or web address] to find one close to you.3.Make use of household items: Use cat litter or old coffee grounds to dispose medications if other options arenot available. Mix your drugs with these household products, seal them in an airtight container andthrow it into the garbage. Call [facility]: [phone] to be sure your drugs can be [...] am aware that I should contactmy doctor. Patient/Media Technician Signature: Date/Time: Relationship to Patient: Witness Name/Signature: Date/Time: [facility]01-09-2023 Anesthesiology Consult note Patient: JAKY PRESTON Age: [...] by AGUSTÍN COSBY on 03/23/2022 09:14 AM [facility]01-09-2023 Note CAVENDISH ADMISSION HISTORY AND PHYSICIAL CHIEF COMPLAINT: HISTORY OF PRESENT ILLNESS: REVIEW OF SYSTEMS: ACTIVE PROBLEMS: (11) Ascites (3952076650) Autoimmune hepatitis (6728003174) Cirrhosis of liver (34218919) Esophageal varices (35563829) Essential thrombocythemia (3158415186) Fatigue (171444502) Fibrosis of liver (086600599) Hepatitis A immune (379247657) HTN (hypertension) (8136088560) Lupus (077594397) Osteoporosis (679739194) MEDICATIONS: Active Inpt Meds: None Active PRN Meds: None One Time Meds: None Active IV Meds: Lactated Ringers Infusion 1,000 mL (LR 1,000 mL) Start: 03/23/22 7:29:00 EST, Rate: 50 mL/hr, 03/23/22 7:29:00 EST ALLERGIES: (1) sulfa drug FAMILY HISTORY: SOCIAL HISTORY: PHYSICAL EXAM: VITALS: [id number](kg) 03/23 07:4536.3--[id number] 54.5 24 Hr Tmax: 36.3 at 03/23 [...] TATIANA YANCEY MD on 03/23/2022 08:55 AM [facility]01-09-2023 Anesthesiology Consult note Patient: JAKY PRESTON Age: 66 years Sex: Female : 1955 Associated Diagnoses: None Author: AGUSTÍN COSBY PORTRAIT CONSULTANT-ETYMOLOGY TEACHER Preoperative Information Time of last food or [...] Mother Procedure history: CE - Cataract extraction ([id number]). Social History Social & Psychosocial Habits Alcohol 03/20/2022 Use: Past Tobacco 03/20/2022 Tobacco Use: Former smoker, quit more . Physical Examination Vital Signs(last 24 hrs) Last Charted BMI25.12 (MAR 23 07:33) Measurements from flowsheet : Measurements 03/23/2022 7:33 EST Height 147.3 cm Admission Weight 54.5 kg [place] Body Weight 40.88 kg BSA Admission 1.47 [...] Person #1 We May Share RADHA Selby [phone] Designated Person #1 Relationship Spouse Height 147.3 cm Admission Weight 54.5 kg [place] Body Weight 40.88 kg BSA Admission 1.47 [...] evident Teaching Method Explanation Preferred Written Language Chilean Preferred Spoken Language Chilean Information Given by Patient Patient's Current Physicians Dr. Brewer Discharge To, Anticipated Home with family care Prev Test Positive/Diagnosis w/COVID-19 No Current Quarantine/Isolated any Illness No Any Contact with Sick Animals/Birds No Traveled Anywhere in Last 30 Days No No Personal Devices, Patient Valuables None Admission Note-Nursing Procedure/Therapy Intake . Assessment and Plan [place] [employer] Anesthesiologists (ASA) physical status classification: Class III. Anesthetic Preoperative Plan Anesthetic technique: MAC. Postoperative pain management: Per surgeon. Informed consent: signed by patient. Digitally Signed by AGUSTÍN COSBY on 03/23/2022 07:46 AM [facility]05-23-2022 Chief complaint Narrative - Reported * An interactive audio and video telecommunication system which permits real time communications between the patient (at the originating site) and provider (at the distant site) was utilized to providethis telehealth service. * Verbal consent was requested and obtained from JAKY PRESTON on this date, 08/04/2021 11:20 AM , for a telehealth visit. * AUTOIMMUNE HEPATITIS AND CIRRHOSIS [facility] [employer] [facility] Work Phone: History of Present illness [...] * Musculoskeletal: there are no musculoskeletal symptoms. [facility] [employer] [facility] Work Phone: History of Present illness [...] * Ears: there are no ear symptoms. [facility] [employer] [facility] Work Phone: Hospital course Narrative No data available for this section [facility] Summary Purpose Family History No Family History [...] DATE CREATED AUTHOR AUTHOR'S ORGANIZ ATION 02/07/2020 [facility] DATE CREATED AUTHOR AUTHOR'S ORGANIZ ATION 07/23/2021 [facility] DATE CREATED AUTHOR AUTHOR'S ORGANIZ ATION 03/30/2022 [facility] DATE CREATED AUTHOR AUTHOR'S ORGANIZ ATION 07/24/2022 [employer] DATE CREATED AUTHOR AUTHOR'S ORGANIZ ATION 09/25/2022 [facility] ([place]) Source Comments (unrecognize d section and content) In the event this informatio n is protected by the Federal Confidentiality of Alcohol and Drug Abuse Patient Records regulations: The Federal rules restrict any use of the information to criminally investigate or prosecute any alcohol or drug abuse patient.[facility] Care Teams (unrecognized sec tion and content) Care Team (unrecognized sect ion and content) Care Team Personnel Name: ZEKE CHAPMAN MD Member Role: Primary Care Physician Address: Address: [address] [place] [address]- Care Team Related Persons Name: JUDY PRESTON Address: [place] [address] Care Team Personnel Name: ZEKE CHAPMAN MD Member Role: Primary Care Physician Address: Address: [address] [place] [address] Care Team Related Persons Name: JUDY PRESTON Address: [place] [address] FOR RECORDS PERTAINING TO PATIENTS WHO ARE [...] BE BASED ON THE PRIMARY CLINICAL RECORDS. [employer] [facility]. provides no warranty or guarantee of the accuracy or completeness of information in this document.
[2022-11-28] VITALS (21 sets, daily range): BP systolic 77–129; BP diastolic 45–67; PULSE 75–115; RESP 15–18; TEMP 36.2–37.3; O2SAT 93–100; BMI 24.8
[2022-11-28 00:14] LABS: Ferritin 50 ng/mL (8-252); Iron 17 ug/dL (50-170); Iron Binding Capacity,Total 285 ug/dL (250-450)
[2022-11-28 00:21] LABS: Immature Platelet Fraction 10.8 % (1.0-7.9); Platelet Count 98 K/mm3 (150-450); RET-HE 21.8 pg (30-35); Reticulocyte Count 7.78 % (0.5-1.5)
[2022-11-28] MEDS: 0.9% Normal Saline (1000mL) 1,000 ML 75 ML IV ×2 (01:19→16:18)
[2022-11-28 02:36] LABS: Bedside Glucose 110 mg/dL (74-106)
[2022-11-28] MEDS: Pantoprazole Sodium 80 MG in 0.9% Normal Saline (100mL Bag) 80 ML 10 MG CONT INF ×2 (05:55→16:19)
[2022-11-28 06:20] LABS: Bedside Glucose 97 mg/dL (74-106)
--- NOTE | 2022-11-28 08:07 | PCM.PN.HOSP ---
Subjective Subjective Doing well, feels fatigued. States that she has been noticing darker stools over the last couple weeks but thinks that it was because she changed her diet because she found out that she had gallstones. Objective Data Objective Data Vital Signs: Vital Signs Temp Pulse Resp BP Pulse Ox O2 Del Method 98.2 F 96 18 106/56 L 98 Room Air 11/28/22 06:50 11/28/22 06:50 11/28/22 06:50 11/28/22 06:50 11/28/22 06:50 11/28/22 07:58 Oxygen Delivery Method Room Air Weight: 118 lb 12.8 oz Body Mass Index (BMI) 24.8 Intake & Output: Intake and Output for Last 24 Hours 11/27/22 11/28/22 11/29/22 03:59 03:59 03:59 Intake Total 1156.25 / 1156.25 72.17 / 72.17 Output Total Balance 1155.25 / 1155.25 72.17 / 72.17 Lab / Micro Data 11/27/22 21:05 11/27/22 19:35 Labs: Laboratory Results - last 24 hr 11/27/22 19:35: Immature Plt Fraction 10.8 H, Retic Count 7.78 H, Immature Retic Fraction 36.90 H, Retic Hgb Equivalent 21.8 L, Sodium 138, Potassium 4.3, Chloride 110 H, Carbon Dioxide 22.0, Anion Gap 6, BUN 33 H, Creatinine 0.73, Estim Creat Clear Calc 47.08, Est GFR (MDRD) Af Amer 102, Est GFR (MDRD) Non-Af 85, BUN/Creatinine Ratio 45.2 H, Glucose 238 H, Calcium 8.2 L, Iron 17 L, TIBC 285, Iron Saturation 6.0 L, Ferritin 50, Total Bilirubin 0.70, AST 18, ALT 27, Alkaline Phosphatase 123 H, Troponin I High Sens 13, Total Protein 6.4, Albumin 2.6 L, Globulin 3.8, Albumin/Globulin Ratio 0.7 L, Folate 19.20 11/27/22 20:15: Urine Color Yellow, Urine Clarity Clear, Urine pH 6.0, Ur Specific [place] 1.020, Urine Protein Negative, Urine Glucose (UA) 1000 H, Urine Ketones 5 H, Urine Occult Blood Negative, Urine Nitrite Negative, Urine Bilirubin Negative, Urine Urobilinogen Normal, Ur Leukocyte Esterase 500 H, Urine RBC 0 SEEN, Urine WBC 10-25 SEEN, Ur Squamous Epith Cells 0-5 SEEN, Urine Bacteria RARE, Urine Mucus 0 SEEN 11/27/22 21:05: WBC 8.5, RBC 2.10 L, Hgb 5.7 L*, Hct 20.5 L, MCV 97.6, MCH 27.1, MCHC 27.8 L, RDW Std Deviation 65.2 H, RDW Coeff of Joel 18.6 H, Plt Count 96 L, MPV 13.5 H, Immature Gran % (Auto) 1.900 H, Neut % (Auto) 89.0 H, Lymph % (Auto) 3.0 L, [place] % (Auto) 6.0, Eos % (Auto) 0.0, Baso % (Auto) 0.1, Absolute Neuts (auto) 7.5, Absolute Lymphs (auto) 0.25 L, Nucleated RBC % 1.9, Differential Comment SEE COMMENTS, Diff Path Review May foll, Platelet Estimate MOD DEC, RBC Morphology N CHROM, Polychromasia RARE, Hypochromasia 1+, Anisocytosis 1+, Macrocytosis 1+, Ovalocytes RARE, Acanthocytes (Spur) RARE 11/27/22 22:18: Blood Type A NEGATIVE, Antibody Screen NEGATIVE, Crossmatch See Detail 11/28/22 01:10: POC Glucose 110 H 11/28/22 05:58: POC Glucose 97 Micro: Microbiology 11/27/22 22:51 Stool Stool Occult Blood (FREDERICK) - Final Occult Blood Positive 11/27/22 20:15 Nasal Secretion SARS-CoV-2 & FLU Antigen (Rapid) - Final Radiography Diagnostic Testing: Radiology Impression Chest X-Ray 11/27/22 19:58 IMPRESSION: Normal x-ray examination of the chest. Electronically Signed: Boogie Tuttle MD at 20:12 EDT , Physical Exam Narrative General: Alert, Oriented x3, Cooperative, No apparent distress HEENT: Atraumatic, PERRLA, EOMI, Normocephalic Oral: Dry mucosa Neck: Supple, No JVD Lungs: Clear to auscultation, Normal air movement, No rhonchi, No wheeze, No rales Cardiovascular: Regular rate, Regular Rhythm, Normal S1, Normal S2, No murmurs Abdomen: Soft, Non Tender, Non-Distended, No Hepato-splenomegaly Extremities: No edema, Capillary Refill Less than 3 Seconds Skin: No rashes, No breakdown, pale Musculoskeletal: No Tenderness to Palpation of Joints or Extremities Neurological: Cranial nerves II-XII grossly intact, Motor Exam 5/5 strength throughout, Sensory exam intact to light touch and pain Psych/Mental Status: Normal Affect, Appropriate Assessment & Plan Assessment/Plan (1) Hypertension: QUALIFIERS: Hypertension type: primary hypertension Qualified Code(s): I10 - Essential (primary) hypertension (2) Diabetes mellitus: QUALIFIERS: Diabetes mellitus type: type 2 Diabetes mellitus longterm insulin use: without longterm use Diabetes mellitus complication status: without complication Qualified Code(s): E11.9 - Type 2 diabetes mellitus without complications (3) Autoimmune hepatitis: (4) ABLA (acute blood loss anemia): PLAN: Plan 1. 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 We will transfuse 2 units ? General surgery was consulted plan for EGD today ? Depending on findings may need octreotide as well as nadolol, she is already on Coreg ? Continue with PPI ? Her hemoglobin on 09/02/2022 was 12.6 with this is a fairly new and rapid bleed 2. HTN/HLD ? Blood pressure is stable, if on the low side ? We will hold her Coreg and Aldactone given significant anemia ? Continue with her home cholesterol medication 3. DM2 ? Stable, will hold her home glipizide ? We will place her on sliding scale insulin ? Accu-Cheks ? We will monitor and make adjustments as necessary 4. Hypothyroidism ? Stable ? Continue with Synthroid DVT: SCDs Charges/Coding Visit Charges Inpatient E&M: 53716 Subs Hosp L2
[2022-11-28 08:22] LABS: Anion Gap 7 (5-15); BUN 26 mg/dL (7-18); BUN/Creat Ratio 50.6 RATIO (10-20); Calcium,Total 7.6 mg/dL (8.5-10.1); Chloride 116 mmol/L (98-107); Creatinine, Serum 0.51 mg/dL (0.55-1.02); EST Glomerular Filtration Rate 127 mL/min (>60); Est Glom Filt Rate - Afr Amer 154 mL/min (>60); Estimated Creatinine Clearance 47.08 ml/min; Glucose 93 mg/dL (74-106); Potassium 3.6 mmol/L (3.5-5.1); Sodium Level 143 mmol/L (136-145)
--- NOTE | 2022-11-28 08:34 | EX.PCM.CON.S ---
Assessment & Plan Assessment/Plan (1) ABLA (acute blood loss anemia): PLAN: Patient was severely anemic and is receiving a blood transfusion currently. Patient is having melanotic stools with the anemia. Patient does have a history of cirrhosis and has had variceal banding in the past. I will take the patient for an EGD this afternoon after transfusion is complete. I will evaluate the stomach and the esophagus. If there are large esophageal varices that are bleeding she may need transfer. She is on an IV PPI. They are checking on the hemoglobin after transfusion. I explained endoscopy in detail to the patient. I explained the risks including but not limited to stroke or heart attack with anesthesia, perforation of the GI tract, bleeding, infection. I explained that any of these could necessitate further emergency surgery. The patient understands and all questions were answered sufficiently. The patient wishes to proceed with procedure. Pacheco Shrestha MD Pager: [facility] [address] [place] [address], [address] [place] [address] Office: HPI Consult Data Date of Consult: 11/28/22 HPI Narrative HPI Narrative: JAKY PRESTON, is a 67 F who presents with weakness. Patient notes he has been having some dark stools for the past week. She denies abdominal pain. She does have a history of variceal bleeding that required bands. She is on chronic steroids. She does not take a PPI. [facility] Medical History Anemia Former smoker GI bleed Hepatitis High cholesterol History of immunosuppression therapy History of steroid therapy History of stress test Hoarseness Hypertension Hypothyroidism Irregular heart beat Non-smoker Osteoporosis Post-menopausal Rheumatoid arthritis Ulcer Home Medications calcium carbonate 500 mg-vitamin D3 5 mcg (200 unit) tablet 1 tab PO BIDCM #60 tabs 09/23/18 [Rx Last Taken Unknown] ferrous sulfate 325 mg (65 mg iron) tablet 325 mg PO BIDCM #60 tabs 09/23/18 [Rx Last Taken Unknown] spironolactone 25 mg tablet 25 mg PO BID #60 tabs 09/23/18 [Rx Last Taken Unknown] carvedilol 6.25 mg tablet 6.25 mg PO BID 07/15/22 [History Last Taken Unknown] ezetimibe 10 mg tablet 10 mg PO DAILY 07/15/22 [History Last Taken Unknown] glipizide 5 mg tablet 5 mg PO DAILY 07/15/22 [History Last Taken Unknown] levothyroxine 50 mcg capsule 50 mcg PO DAILY 07/15/22 [History Last Taken Unknown] prednisone 5 mg tablet 5 mg PO DAILY 07/15/22 [History Last Taken Unknown] azathioprine 50 mg tablet 75 mg PO DAILY 11/28/22 [History Last Taken Unknown] Allergy/AdvReac Type Severity Reaction Status Date / Time Sulfa (Sulfonamide Allergy Severe Swelling Verified 10/14/22 10:35 Antibiotics) Family History Other Diabetes Heart disease Surgical History H/O section History of cataract surgery Social History Smoking Status: Former smoker ROS Constitutional Constitutional: Reports anorexia; Denies chills, fatigue or fever(s) Eyes Eyes: Denies blurry vision ENT HEENT: Denies abnormal hearing Cardiovascular Cardiovascular: Denies chest pain Respiratory/Chest Respiratory/Chest: Denies cough or dyspnea Gastrointestinal Gastrointestinal: Reports melena; Denies abdominal pain, nausea or vomiting Genitourinary Genitourinary: Denies change in urinary stream Musculoskeletal Musculoskeletal: Denies abnormal gait Integumentary Integumentary: Denies jaundice Neurologic Neurologic: Denies abnormal gait Endocrine Endocrinology: Denies flushing Physical Exam Const alert and oriented x3 General Appearance: cooperative HEENT normocephalic Eyes PERRL Resp normal respiratory effort Cardio Rate: regular rate Rhythm: regular rhythm GI soft to palpation and non-tender Lab / Micro Data 11/27/22 21:05 11/28/22 06:54 Labs: Laboratory Results - last 24 hr 11/27/22 19:35: Immature Plt Fraction 10.8 H, Retic Count 7.78 H, Immature Retic Fraction 36.90 H, Retic Hgb Equivalent 21.8 L, Sodium 138, Potassium 4.3, Chloride 110 H, Carbon Dioxide 22.0, Anion Gap 6, BUN 33 H, Creatinine 0.73, Estim Creat Clear Calc 47.08, Est GFR (MDRD) Af Amer 102, Est GFR (MDRD) Non-Af 85, BUN/Creatinine Ratio 45.2 H, Glucose 238 H, Calcium 8.2 L, Iron 17 L, TIBC 285, Iron Saturation 6.0 L, Ferritin 50, Total Bilirubin 0.70, AST 18, ALT 27, Alkaline Phosphatase 123 H, Troponin I High Sens 13, Total Protein 6.4, Albumin 2.6 L, Globulin 3.8, Albumin/Globulin Ratio 0.7 L, Folate 19.20 11/27/22 20:15: Urine Color Yellow, Urine Clarity Clear, Urine pH 6.0, Ur Specific [place] 1.020, Urine Protein Negative, Urine Glucose (UA) 1000 H, Urine Ketones 5 H, Urine Occult Blood Negative, Urine Nitrite Negative, Urine Bilirubin Negative, Urine Urobilinogen Normal, Ur Leukocyte Esterase 500 H, Urine RBC 0 SEEN, Urine WBC 10-25 SEEN, Ur Squamous Epith Cells 0-5 SEEN, Urine Bacteria RARE, Urine Mucus 0 SEEN 11/27/22 21:05: WBC 8.5, RBC 2.10 L, Hgb 5.7 L*, Hct 20.5 L, MCV 97.6, MCH 27.1, MCHC 27.8 L, RDW Std Deviation 65.2 H, RDW Coeff of Joel 18.6 H, Plt Count 96 L, MPV 13.5 H, Immature Gran % (Auto) 1.900 H, Neut % (Auto) 89.0 H, Lymph % (Auto) 3.0 L, [place] % (Auto) 6.0, Eos % (Auto) 0.0, Baso % (Auto) 0.1, Absolute Neuts (auto) 7.5, Absolute Lymphs (auto) 0.25 L, Nucleated RBC % 1.9, Differential Comment SEE COMMENTS, Diff Path Review May mathieu, Platelet Estimate MOD DEC, RBC Morphology N CHROM, Polychromasia RARE, Hypochromasia 1+, Anisocytosis 1+, Macrocytosis 1+, Ovalocytes RARE, Acanthocytes (Spur) RARE 11/27/22 22:18: Blood Type A NEGATIVE, Antibody Screen NEGATIVE, Crossmatch See Detail 11/28/22 01:10: POC Glucose 110 H 11/28/22 05:58: POC Glucose 97 11/28/22 06:54: Sodium 143, Potassium 3.6, Chloride 116 H, Carbon Dioxide 20.0 L, Anion Gap 7, BUN 26 H, Creatinine 0.51 L, Estim Creat Clear Calc 47.08, Est GFR (MDRD) Af Amer 154, Est GFR (MDRD) Non-Af 127, BUN/Creatinine Ratio 50.6 H, Glucose 93, Calcium 7.6 L Micro: Microbiology 11/27/22 22:51 Stool Stool Occult Blood (FREDERICK) - Final Occult Blood Positive 11/27/22 20:15 Nasal Secretion SARS-CoV-2 & FLU Antigen (Rapid) - Final Radiology Impression Chest X-Ray 11/27/22 19:58 IMPRESSION: Normal x-ray examination of the chest. Electronically Signed: Boogie Tuttle MD at 20:12 EDT ,
[2022-11-28] MEDS: Ezetimibe 10 MG Tablet PO (08:48)
[2022-11-28] MEDS: 0.9% Saline Lock 10 ML Syringe IV (08:54)
--- NOTE | 2022-11-28 10:10 | CASEMGMT ---
ROBBY FIELDS Assessment: Face to Face with pt for initial transition planning/care coordination assessment. RN DIAMOND introduced self and role at [facility], pt voices understanding and consents to assessment. Pt is A/O x4 and answers all questions appropriately at this time. Pt lying in bed with at bedside. Care providers, pharmacy, and demographics verified/updated. Admitting Dx: acute blood loss anemia PCP:Ari Specialists:MISSY Dinh; MISSY Govea; rheum in [place] Preferred Pharmacy: [facility] Insurance: [facility] Prescription Benefit: yes LNOK: Bal Perez, Living Arrangements: Pt lives with in a single story home with 2 steps to enter with a rail. Pt reports she is I in ADL's and denies concerns at home. Transportation: Pt drives self and denies concerns with transportation. DME/HHC/SNF:Pt denies having any DME, previous HHC or SNF stays. Pt states no concerns with going home at time of dc. Pt states no further concerns/needs. CM to follow. Advised pt to ask CM if any further question/concerns/needs arise, voices understanding. Pt Goal: Home Plan: Home
[2022-11-28 12:20] LABS: Bedside Glucose 97 mg/dL (74-106)
[2022-11-28 12:25] LABS: Hemoglobin 8.3 g/dL (12.0-15.0)
--- NOTE | 2022-11-28 13:29 | OP.CCLET_ITS ---
11/28/2022 Juanjose Chapman Re : Upper GI endoscopy procedure for Vannessa Perez Dear Ari This procedure was performed on Monday, November 28, 2022. My impressions and recommendations are as follows: Impressions : - Esophageal ulcer with no bleeding and no stigmata of recent bleeding. - Chronic gastritis with hemorrhage. - Normal examined duodenum. - No specimens collected. Recommendations : - Return patient to [facility] for [facility] care. - Clear liquid diet. - Continue present medications. My findings are described in the full procedure note, which is enclosed. If I can be of further assistance, please feel free to contact me at Doctor phone number(s): , Work: . Sincerely, Pacheco Shrestha MD 11/28/2022 1:28:53 PM This report has been signed electronically.
--- NOTE | 2022-11-28 13:29 | OP.EGD_ITS ---
Patient Name: Vannessa Perez Procedure Date: 11/28/2022 1:04 PM Date of : 1955 Age: 67 Procedure: Upper GI endoscopy Indications: Heme positive stool, Melena Providers: Pacheco Shrestha MD Medicines: Monitored Anesthesia Care Patient Profile: This is a 67 year old female. Refer to note in patient chart for documentation of history and physical. Complications: No immediate complications. Estimated blood loss: Minimal. Procedure: Pre-Anesthesia Assessment: - Prior to the procedure, a History and Physical was performed, and patient medications and allergies were reviewed. The patient's tolerance of previous anesthesia was also reviewed. The risks and benefits of the procedure and the sedation options and risks were discussed with the patient. All questions were answered, and informed consent was obtained. Prior Anticoagulants: The patient has taken no anticoagulant or antiplatelet agents. After reviewing the risks and benefits, the patient was deemed in satisfactory condition to undergo the procedure. After obtaining informed consent, the endoscope was passed under direct vision. Throughout the procedure, the patient's blood pressure, pulse, and oxygen saturations were monitored continuously. The Endoscope was introduced through the mouth, and advanced to the fourth part of duodenum. The upper GI endoscopy was accomplished without difficulty. The patient tolerated the procedure well. Scope In: 1:14:15 PM Scope Out: 1:20:37 PM Total Procedure Duration Time 0 hours 6 minutes 22 seconds Findings: One cratered esophageal ulcer with no bleeding and no stigmata of recent bleeding was found at the gastroesophageal junction. Scattered moderate inflammation with hemorrhage characterized by adherent blood was found in the entire examined stomach. The examined duodenum was normal. Impression: - Esophageal ulcer with no bleeding and no stigmata of recent bleeding. - Chronic gastritis with hemorrhage. - Normal examined duodenum. - No specimens collected. Recommendation: - Return patient to [facility] for ongoing care. - Clear liquid diet. - Continue present medications. Procedure Code(s): --- Professional --- 66198, Esophagogastroduodenoscopy, flexible, transoral; diagnostic, including collection of specimen(s) by brushing or washing, when performed (separate procedure) Diagnosis Code(s): --- Professional --- K22.10, Ulcer of esophagus without bleeding K29.51, Unspecified chronic gastritis with bleeding R19.5, Other fecal abnormalities K92.1, Melena (includes Hematochezia) CPT copyright 2021 [employer]. All rights reserved. The codes documented in this report are preliminary and upon master cook review may be revised to meet current compliance requirements. Pacheco Shrestha MD 11/28/2022 1:28:53 PM This report has been signed electronically. Number of Addenda: 0 Note Initiated On: 11/28/2022 1:04 PM
--- NOTE | 2022-11-28 13:29 | PN_ITS ---
Progress Note Formed an EGD on the patient for GI bleeding. The duodenum appeared normal. The pylorus appeared normal. At the GE junction there was an ulcer in the distal esophagus. It did not have any clot or stigmata of bleeding and it was granulated. The stomach was friable in any area that was suction started bleeding. I did not note large varices or variceal bleeding. The area GE junction that was bleeding was only because of scope trauma from suction. I recommend the patient start clear liquid diet and Carafate. She may continue her IV PPI. Continue to monitor hemoglobin. Hope to advance diet tomorrow if hemoglobin stable. Pacheco Shrestha MD Pager: [facility] [address] [place] [address], [address] [place] [address] Office:
[2022-11-28] MEDS: Sucralfate 1 GM Tablet PO ×2 (16:12→21:20)
[2022-11-28 16:43] LABS: Bedside Glucose 80 mg/dL (74-106)
--- NOTE | 2022-11-28 18:49 | NURSING ---
Reviewed charting with Nikita Hill RN
[2022-11-28 22:25] LABS: Bedside Glucose 144 mg/dL (74-106)
[2022-11-29] MEDS: Pantoprazole Sodium 80 MG in 0.9% Normal Saline (100mL Bag) 80 ML 10 MG CONT INF ×2 (00:44→10:48)
[2022-11-29 03:25] VITALS: BP 106/53; PULSE 112; RESP 16; TEMP 37.2; O2SAT 96
[2022-11-29] MEDS: 0.9% Normal Saline (1000mL) 1,000 ML 75 ML IV (06:16)
[2022-11-29] MEDS: Sucralfate 1 GM Tablet PO ×2 (06:19→10:47)
[2022-11-29 07:27] LABS: Absolute Lymphocyte Count 0.19 X10^3/uL (0.83-4.51); Absolute Neutrophil Count 6.6 X10^3/uL (2.0-7.7); Basophil# 0.02 X10^3/uL; Basophil% 0.3 % (0-1); Eosinophil# 0.01 X10^3/uL; Eosinophils% 0.1 % (0-5); Hemoglobin 8.1 g/dL (12.0-15.0); Lymphocyte # 0.19 X10^3/ul (0.83-4.51); Lymphocyte % 2.6 % (19-41); Mean Corpuscular Hgb 27.9 pg (27.0-32.0); Mean Corpuscular Volume 93.1 fL (81-99); Mean Platelet Vol. 13.5 fl (6.2-12.0); Monocyte% 6.8 % (0-10); Neutrophil # 6.59 X10^3/uL (2.7-7.7); Neutrophil % 89.3 % (47-70); POSITIVE COUNT YES; POSITIVE DIFFERENTIAL YES; Platelet Count 48 K/mm3 (150-450); RBC Distribution Width CV 18.9 % (11.6-14.6); RBC Distribution Width SD 63.5 fl (35.1-43.9); White Blood Count 7.4 K/mm3 (4.4-11.0)
[2022-11-29 07:40] VITALS: O2SAT 96
[2022-11-29 07:43] LABS: Differential Indicated SCAN CRITERIA MET
[2022-11-29 07:45] LABS: Bedside Glucose 133 mg/dL (74-106)
[2022-11-29 07:56] LABS: Anion Gap 6 (5-15); BUN 20 mg/dL (7-18); BUN/Creat Ratio 26.2 RATIO (10-20); Calcium,Total 7.2 mg/dL (8.5-10.1); Chloride 116 mmol/L (98-107); Creatinine, Serum 0.76 mg/dL (0.55-1.02); EST Glomerular Filtration Rate 80 mL/min (>60); Est Glom Filt Rate - Afr Amer 97 mL/min (>60); Estimated Creatinine Clearance 47.08 ml/min; Glucose 141 mg/dL (74-106); Potassium 3.5 mmol/L (3.5-5.1); Sodium Level 140 mmol/L (136-145)
[2022-11-29 08:09] LABS: Platelet Estimate MKD DEC (ADEQ)
--- NOTE | 2022-11-29 08:48 | PN.HOSP_ITS ---
Subjective Subjective Doing well, no issues overnight. She feels better than when she came in, posttransfusion after her EGD her hemoglobin was 8.3 this morning she is down to 8.1 Objective Data Objective Data Vital Signs: Vital Signs Temp Pulse Resp BP Pulse Ox O2 Del Method 98.9 F 112 H 16 106/53 L 96 Room Air 11/29/22 03:25 11/29/22 03:25 11/29/22 03:25 11/29/22 03:25 11/29/22 03:25 11/29/22 03:25 Oxygen Delivery Method Room Air Weight: 118 lb 12.8 oz Body Mass Index (BMI) 24.8 Intake & Output: Intake and Output for Last 24 Hours 11/28/22 11/29/22 11/30/22 03:59 03:59 03:59 Intake Total 1156.25 / 1156.25 1331.34 / 1331.34 1188.75 / 1188.75 Output Total Balance 1155.25 / 1155.25 1331.34 / 1331.34 1188.75 / 1188.75 Lab / Micro Data 11/29/22 06:40 11/29/22 06:40 Labs: Laboratory Results - last 24 hr 11/27/22 22:18: Crossmatch See Detail 11/28/22 11:36: POC Glucose 97 11/28/22 12:19: Hgb 8.3 L, Hct 27.0 L 11/28/22 16:10: POC Glucose 80 11/28/22 21:24: POC Glucose 144 H 11/29/22 06:18: POC Glucose 133 H 11/29/22 06:40: WBC 7.4, RBC 2.90 L, Hgb 8.1 L, Hct 27.0 L, MCV 93.1, MCH 27.9, MCHC 30.0 L D, RDW Std Deviation 63.5 H, RDW Coeff of Joel 18.9 H, Plt Count 48 L *, MPV 13.5 H, Immature Gran % (Auto) 0.900, Neut % (Auto) 89.3 H, Lymph % (Auto) 2.6 L, [place] % (Auto) 6.8, Eos % (Auto) 0.1, Baso % (Auto) 0.3, Absolute Neuts (auto) 6.6, Absolute Lymphs (auto) 0.19 L, Nucleated RBC % 2.0, Diff Path Review May foll, Platelet Estimate MKD DEC, Sodium 140, Potassium 3.5, Chloride 116 H, Carbon Dioxide 18.0 L, Anion Gap 6, BUN 20 H, Creatinine 0.76, Estim Creat Clear Calc 47.08, Est GFR (MDRD) Af Amer 97, Est GFR (MDRD) Non-Af 80, BUN/Creatinine Ratio 26.2 H, Glucose 141 H, Calcium 7.2 L Micro: Microbiology 11/27/22 22:51 Stool Stool Occult Blood (FREDERICK) - Final Occult Blood Positive 11/27/22 20:15 Nasal Secretion SARS-CoV-2 & FLU Antigen (Rapid) - Final Physical Exam Narrative General: Alert, Oriented x3, Cooperative, No apparent distress HEENT: Atraumatic, PERRLA, EOMI, Normocephalic Oral: Moist mucosa Neck: Supple, No JVD Lungs: Clear to auscultation, Normal air movement, No rhonchi, No wheeze, No rales Cardiovascular: Regular rate, Regular Rhythm, Normal S1, Normal S2, No murmurs Abdomen: Soft, Non Tender, Non-Distended, No Hepato-splenomegaly Extremities: No edema, Capillary Refill Less than 3 Seconds Skin: No rashes, No breakdown, pale Musculoskeletal: No Tenderness to Palpation of Joints or Extremities Neurological: Cranial nerves II-XII grossly intact, Motor Exam 5/5 strength throughout, Sensory exam intact to light touch and pain Psych/Mental Status: Normal Affect, Appropriate Assessment & Plan Assessment/Plan (1) Hypertension: QUALIFIERS: Hypertension type: primary hypertension Qualified Code(s): I10 - Essential (primary) hypertension (2) Diabetes mellitus: QUALIFIERS: Diabetes mellitus type: type 2 Diabetes mellitus halfway insulin use: without termite control representative use Diabetes mellitus complication status: without complication Qualified Code(s): E11.9 - Type 2 diabetes mellitus without complications (3) Autoimmune hepatitis: (4) ABLA (acute blood loss anemia): PLAN: Plan 1. 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 Recheck hemoglobin this afternoon ? EGD with punctate bleeding from gastritis as well as 2 ulcers that do not appear to be bleeding ? Continue with PPI and Carafate 2. HTN/HLD ? Blood pressure is stable, if on the low side ? We will hold her Coreg and Aldactone given significant anemia ? Continue with her home cholesterol medication 3. DM2 ? Stable, will hold her home glipizide ? We will place her on sliding scale insulin ? Accu-Cheks ? We will monitor and make adjustments as necessary 4. Hypothyroidism ? Stable ? Continue with Synthroid DVT: SCDs Charges/Coding Visit Charges Inpatient E&M: 69255 Subs Hosp L2
[2022-11-29 09:25] VITALS: BP 106/58; PULSE 100; RESP 18; TEMP 36.7; O2SAT 98
--- NOTE | 2022-11-29 09:31 | PN.SURG_ITS ---
Subjective Subjective Patient reports no bowel movement since her procedure. She is not short of breath. She denies dizziness. Objective Data Objective Data Vital Signs: Vital Signs Temp Pulse Resp BP Pulse Ox O2 Del Method 98.9 F 112 H 16 106/53 L 96 Room Air 11/29/22 03:25 11/29/22 03:25 11/29/22 03:25 11/29/22 03:25 11/29/22 03:25 11/29/22 03:25 Oxygen Delivery Method Room Air Weight: 118 lb 12.8 oz Body Mass Index (BMI) 24.8 Intake & Output: Intake and Output for Last 24 Hours 11/27/22 11/28/22 11/29/22 23:59 23:59 23:59 Intake Total 1035 / 1035 1368.42 / 1368.42 1272.92 / 1272.92 Output Total Balance 1035 / 1035 1367.42 / 1367.42 1272.92 / 1272.92 Lab / Micro Data 11/29/22 06:40 11/29/22 06:40 Labs: Laboratory Results - last 24 hr 11/28/22 11:36: POC Glucose 97 11/28/22 12:19: Hgb 8.3 L, Hct 27.0 L 11/28/22 16:10: POC Glucose 80 11/28/22 21:24: POC Glucose 144 H 11/29/22 06:18: POC Glucose 133 H 11/29/22 06:40: WBC 7.4, RBC 2.90 L, Hgb 8.1 L, Hct 27.0 L, MCV 93.1, MCH 27.9, MCHC 30.0 L D, RDW Std Deviation 63.5 H, RDW Coeff of Joel 18.9 H, Plt Count 48 L*, MPV 13.5 H, Immature Gran % (Auto) 0.900, Neut % (Auto) 89.3 H, Lymph % (Auto) 2.6 L, [place] % (Auto) 6.8, Eos % (Auto) 0.1, Baso % (Auto) 0.3, Absolute Neuts (auto) 6.6, Absolute Lymphs (auto) 0.19 L, Nucleated RBC % 2.0, Diff Path Review July, Platelet Estimate MKD DEC, Sodium 140, Potassium 3.5, Chloride 116 H, Carbon Dioxide 18.0 L, Anion Gap 6, BUN 20 H, Creatinine 0.76, Estim Creat Clear Calc 47.08, Est GFR (MDRD) Af Amer 97, Est GFR (MDRD) Non-Af 80, BUN/Creatinine Ratio 26.2 H, Glucose 141 H, Calcium 7.2 L Micro: Microbiology 11/27/22 22:51 Stool Stool Occult Blood (FREDERICK) - Final Occult Blood Positive 11/27/22 20:15 Nasal Secretion SARS-CoV-2 & FLU Antigen (Rapid) - Final Physical Exam Const oriented x3 and no apparent distress Resp normal respiratory effort GI soft to palpation and non-tender Assessment & Plan Assessment/Plan (1) ABLA (acute blood loss anemia): PLAN: Patient had acute blood loss anemia. Unsure if this is from her esophageal ulcer or from her gastritis that had punctate bleeding. I recommend converting her to oral Protonix. I will order her regular diet today as she tolerated clears with no problem and did not have any drop in her hemoglobin. My recommendation will be to check 1 more H&H this afternoon and if that is stable she could probably go home but I will defer that decision to the hospitalist service. Her platelets were low today but this may be consumptive due to her bleeding. She can follow-up with me in 1 week for repeat H&H. Pacheco Shrestha MD Pager: [facility] [address] [place] [address], [address] [place] [phone] Office:
[2022-11-29] MEDS: Ezetimibe 10 MG Tablet PO (10:47)
[2022-11-29 11:55] LABS: Bedside Glucose 152 mg/dL (74-106)
[2022-11-29 13:14] LABS: Hematocrit 27.2 % (37-47); Hemoglobin 8.5 g/dL (12.0-15.0); POSITIVE COUNT YES
--- NOTE | 2022-11-29 14:30 | PCM.DC ---
Discharge Instructions Diet Discharge Diet: Light diet - advance as tolerated Activity Discharge Activity: Return to Normal Activity Dressing / Incision Call your doctor if you observe: Fever of 101 or Higher, Shortness of breath, Dizziness, Fainting spells, Swelling in the ankles, Chest pain and Increased palpitations (irregular heartbeat) Follow Up Care Test Results: Test results from this visit will be discussed in further detail at your follow-up appointment, if applicable. Discharge Plan Admission Admit Date/Time: 11/28/22 08:06 Attending Provider: Chris Chatterjee Primary Care Provider: Juanjose Chapman Consulting Providers: Pacheco Shrestha; Tomer Lew Instructions Additional Instructions / Restrictions: Hemoglobin is stable, follow-up as an outpatient with general surgery and GI as well as your PCP to monitor your hemoglobin. Discharge Orders/Prescriptions Prescriptions: New sucralfate 1 gram Tablet 1 g PO 1HR_ACHS 30 Days Qty: 90 0RF pantoprazole [Protonix] 40 mg tablet,delayed release (DR/EC) 40 mg PO BID 30 Days Qty: 60 0RF Continued levothyroxine 50 mcg capsule 300 mcg PO MAIN prednisone 5 mg tablet 5 mg PO DAILY Rx Instructions: 1 and 1/2 tab daily glipizide 5 mg tablet 5 mg PO DAILY Rx Instructions: 2.5 mg daily ezetimibe 10 mg tablet 10 mg PO DAILY carvedilol 6.25 mg tablet 6.25 mg PO BID Rx Instructions: must administer with a meal/food spironolactone 25 MG tablet 25 mg PO BID Qty: 60 0RF ferrous sulfate 325 MG tablet 325 mg PO BIDCM Qty: 60 0RF calcium carbonate-vitamin D3 1 TABLET tablet 1 tab PO BIDCM Qty: 60 0RF azathioprine 50 mg tablet 75 mg PO DAILY Referrals / Follow Up: Pacheco Shrestha MD [Med Staff - Active Staff] - Within 1 Week Juanjose Chapman MD [Primary Care Provider] - Within 1 Week Chandler Dinh MD [Non-Staff] - Within 1 Month Disposition Disposition (needs filled in before D/C Order can be placed): Home, Self Care
--- NOTE | 2022-11-29 14:36 | PCM.DC.SUM ---
Providers Date of Admission: 11/28/22 Primary Care Physician: Dr. Juanjose Chapman MD Consultations 11/27/22 23:43 Consult: General Surgery Routine Consulting Provider: Pacheco Shrestha Reason for Consult: ABLA EMERGENT Consult: No MD Notified: Yes Date Notified: 11/27/22 Time Notified: 22:40 Method of Notification: ED Physician Initiated Reason For Visit: ACUTE BLOOD LOSS ANEMIA Diagnosis Discharge Diagnosis (1) ABLA (acute blood loss anemia): Status: Acute Code(s): D62 - Acute posthemorrhagic anemia Medications at Discharge Home Medications calcium carbonate 500 mg-vitamin D3 5 mcg (200 unit) tablet 1 tab PO BIDCM #60 tabs 09/23/18 ferrous sulfate 325 mg (65 mg iron) tablet 325 mg PO BIDCM #60 tabs 09/23/18 spironolactone 25 mg tablet 25 mg PO BID #60 tabs 09/23/18 carvedilol 6.25 mg tablet 6.25 mg PO BID 07/15/22 ezetimibe 10 mg tablet 10 mg PO DAILY 07/15/22 glipizide 5 mg tablet 5 mg PO DAILY 07/15/22 levothyroxine 50 mcg capsule 300 mcg PO MAIN thyroid 07/15/22 prednisone 5 mg tablet 5 mg PO DAILY 07/15/22 azathioprine 50 mg tablet 75 mg PO DAILY 11/28/22 pantoprazole 40 mg tablet,delayed release (Protonix) 40 mg PO BID 30 days #60 tabs 11/29/22 sucralfate 1 gram tablet 1 g PO 1HR_ACHS 30 days #90 tabs 11/29/22 Hospital Course Operations None Procedures EGD Summary of Care Provided Minutes Spent on Discharge: 37 Hospital Course: Per HPI: JAKY PRESTON, is a 67 F with a significant history of cirrhosis from autoimmune hepatitis who is on daily prednisone presents emergency department with weakness. Because the patient was being weak for about a week and she felt that she may be having a flareup of her autoimmune hepatitis. She called Dr. 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 She reports having dark stools which she attributed to a change in her diuretics. Patient was found to be severely anemic with hemoglobin of 5.7 Emergency department also reports black Jet tarry stools on rectal examination. Hospital Course: 1. 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 Hemoglobin is 5.7 on admission. General surgery was consulted and they performed an EGD this demonstrated an esophageal ulcer with no bleeding and no stigmata of recent bleeding, there was chronic gastritis with hemorrhage as well as a possible duodenal ulcer. Recheck of hemoglobin on the day of discharge went up from 8.1 to 8.5. I discussed with her the possibility for discharge today and she expressed understanding Beti of is going home and would like to go home today as she feels fine. She did tolerate advancement in her diet. I do recommend that she go home with twice daily Protonix as well as Carafate, these were prescribed to her and I do recommend she follow-up with general surgery as well as her PCP and gastroenterology as an outpatient. Of note she was inappropriately admitted under observation and so the next day she was transition to inpatient with anticipation of a 2 midnight stay however she did recover faster than anticipated especially with the setting of her gastritis with hemorrhage. 2. Hypertension, hyperlipidemia, type 2 diabetes, hypothyroidism are all chronic medical conditions which complicate her care. Her home medications were continued where appropriate Weight / BMI Weight Weight: 118 lb 12.8 oz Body Mass Index (BMI) 24.8 ABG / Lab / Microbiology Data 11/29/22 13:00 11/29/22 06:40 Laboratory: Laboratory Results - last 24 hr 11/28/22 16:10: POC Glucose 80 11/28/22 21:24: POC Glucose 144 H 11/29/22 06:18: POC Glucose 133 H 11/29/22 06:40: WBC 7.4, RBC 2.90 L, Hgb 8.1 L, Hct 27.0 L, MCV 93.1, MCH 27.9, MCHC 30.0 L D, RDW Std Deviation 63.5 H, RDW Coeff of Joel 18.9 H, Plt Count 48 L*, MPV 13.5 H, Immature Gran % (Auto) 0.900, Neut % (Auto) 89.3 H, Lymph % (Auto) 2.6 L, [place] % (Auto) 6.8, Eos % (Auto) 0.1, Baso % (Auto) 0.3, Absolute Neuts (auto) 6.6, Absolute Lymphs (auto) 0.19 L, Nucleated RBC % 2.0, Diff Path Review May foll, Platelet Estimate MKD DEC, Sodium 140, Potassium 3.5, Chloride 116 H, Carbon Dioxide 18.0 L, Anion Gap 6, BUN 20 H, Creatinine 0.76, Estim Creat Clear Calc 47.08, Est GFR (MDRD) Af Amer 97, Est GFR (MDRD) Non-Af 80, BUN/Creatinine Ratio 26.2 H, Glucose 141 H, Calcium 7.2 L 11/29/22 11:27: POC Glucose 152 H 11/29/22 13:00: Hgb 8.5 L, Hct 27.2 L Microbiology: Microbiology 11/27/22 22:51 Stool Stool Occult Blood (FREDERICK) - Final Occult Blood Positive 11/27/22 20:15 Nasal Secretion SARS-CoV-2 & FLU Antigen (Rapid) - Final D/C Instructions Discharge Diet: Light diet - advance as tolerated Call your doctor if you observe: Fever of 101 or Higher, Shortness of breath, Dizziness, Fainting spells, Swelling in the ankles, Chest pain and Increased palpitations (irregular heartbeat) Meaningful Use Info Meaningful Use Diagnoses (Choose all that apply): None applicable Discharge Plan Admission Admit Date/Time: 11/28/22 08:06 Attending Provider: Chris Chatterjee Primary Care Provider: Juanjose Chapman Consulting Providers: Pacheco Shrestha; Tomer Lew Instructions Additional Instructions / Restrictions: Hemoglobin is stable, follow-up as an outpatient with general surgery and GI as well as your PCP to monitor your hemoglobin. Discharge Orders/Prescriptions Prescriptions: New sucralfate 1 gram Tablet 1 g PO 1HR_ACHS 30 Days Qty: 90 0RF pantoprazole [Protonix] 40 mg tablet,delayed release (DR/EC) 40 mg PO BID 30 Days Qty: 60 0RF Continued levothyroxine 50 mcg capsule 300 mcg PO MAIN prednisone 5 mg tablet 5 mg PO DAILY Rx Instructions: 1 and 1/2 tab daily glipizide 5 mg tablet 5 mg PO DAILY Rx Instructions: 2.5 mg daily ezetimibe 10 mg tablet 10 mg PO DAILY carvedilol 6.25 mg tablet 6.25 mg PO BID Rx Instructions: must administer with a meal/food spironolactone 25 MG tablet 25 mg PO BID Qty: 60 0RF ferrous sulfate 325 MG tablet 325 mg PO BIDCM Qty: 60 0RF calcium carbonate-vitamin D3 1 TABLET tablet 1 tab PO BIDCM Qty: 60 0RF azathioprine 50 mg tablet 75 mg PO DAILY Referrals / Follow Up: Pacheco Shrestha MD [Med Staff - Active Staff] - Within 1 Week Juanjose Chapman MD [Primary Care Provider] - Within 1 Week Chandler Dinh MD [Non-Staff] - Within 1 Month Disposition Disposition (needs filled in before D/C Order can be placed): Home, Self Care Charges/Coding Visit Charges Inpatient E&M: 02984 Disch Hosp >30min
[2022-11-29 15:07] VITALS: BP 104/64; PULSE 82; RESP 16; TEMP 36.8; O2SAT 98
[2022-11-30 08:58] LABS: Vitamin B12 690 pg/mL (211-911)
[2022-11-30 13:37] LABS: Pathologist Review Reviewed
[2022-11-30 13:42] LABS: Pathologist Review Reviewed
== END 2022-11-29 15:13 | disposition home or self-care (01) | DRG 378 ==
LOC: ED 22:57 → PCU 23:17
PROVIDERS: Surgery; Admitting Provider Hospitalist; Emergency Provider Student in an Organized Health Care Education/Training Program; PCP Family Medicine; Visit Provider Family Medicine
PROC: 0DJ08ZZ Inspection of Upper Intestinal Tract, Via Natural or Artificial Opening Endoscopic (ICD-10-PCS; CPT 43235; principal; 2022-11-28 10:00)
DX: K29.51 Unspecified chronic gastritis with bleeding (principal); D62 Acute posthemorrhagic anemia; K22.10 Ulcer of esophagus without bleeding; K75.4 Autoimmune hepatitis; K74.60 Unspecified cirrhosis of liver; E11.9 Type 2 diabetes mellitus without complications; E03.9 Hypothyroidism, unspecified; I10 Essential (primary) hypertension; E78.00 Pure hypercholesterolemia, unspecified; Z79.52 Long term (current) use of systemic steroids; Z79.84 Long term (current) use of oral hypoglycemic drugs; Z79.899 Other long term (current) drug therapy; Z79.890 Hormone replacement therapy; Z87.891 Personal history of nicotine dependence
CPT/HCPCS: 36415; 71045; 80048; 80053; 81001; 82274; 82607; 82728; 82746; 82962; 83540; 83550; 84484; 85014; 85018; 85025; 85045; 86850; 86900; 86901; 86920; 86922; 87428; 99285; J7030; J7040; J7050; P9016; A4216; J3490

== ENCOUNTER → 2023-02-10 | Outpatient (CLI) | payer MEDICARE, SELFPAY ==
[2023-02-10 17:37] LABS: Hematocrit 37.9 % (37-47); Hemoglobin 11.1 g/dL (12.0-15.0); Mean Corp Hgb Conc 29.3 g/dL (32-36); Mean Corpuscular Hgb 25.8 pg (27.0-32.0); Mean Corpuscular Volume 88.1 fL (81-99); POSITIVE COUNT YES; Platelet Count 52 K/mm3 (150-450); RBC Distribution Width CV 18.3 % (11.6-14.6); RBC Distribution Width SD 59.7 fl (35.1-43.9); White Blood Count 2.9 K/mm3 (4.4-11.0)
[2023-02-10 17:57] LABS: ALB/GLOB Ratio 0.6 RATIO (0.9-2.4); AST(SGOT) 27 U/L (15-37); Alanine Aminotransfer ALT/SGPT 37 U/L (13-56); Alkaline Phosphatase 192 U/L (45-117); Anion Gap 3 (5-15); BUN 30 mg/dL (7-18); BUN/Creat Ratio 39.6 RATIO (10-20); Calcium,Total 8.7 mg/dL (8.5-10.1); Chloride 107 mmol/L (98-107); Creatinine, Serum 0.76 mg/dL (0.55-1.02); EST Glomerular Filtration Rate 81 mL/min (>60); Est Glom Filt Rate - Afr Amer 98 mL/min (>60); Globulin 4.8 g/dL (2.2-4.2); Glucose 148 mg/dL (74-106); Potassium 4.7 mmol/L (3.5-5.1); Protein, Total 7.8 g/dL (6.4-8.2); Sodium Level 137 mmol/L (136-145)
[2023-02-10 18:06] LABS: International Normalized Ratio 1.2; Prothrombin Time (Protime)PT. 15.2 SECONDS (11.7-14.9)
[2023-02-10 18:10] LABS: Scan Indicated on CBC? Y/N YES- FLAGS NOTED
[2023-02-12 08:11] LABS: AFP, Tumor Marker 2.1 ng/mL (0.0-9.2)
== END | disposition home or self-care (01) ==
PROVIDERS: PCP Family Medicine; Referring Provider Internal Medicine Gastroenterology; Visit Provider Internal Medicine Gastroenterology
DX: K74.60 Unspecified cirrhosis of liver (principal)
CPT/HCPCS: 36415; 80053; 82105; 85027; 85610

== ENCOUNTER → 2023-03-30 | Outpatient (CLI) | payer MEDICARE, SELFPAY ==
[2023-03-30 16:22] LABS: Bacteria 0 SEEN /hpf (None Seen); Mucous, Urine 0 SEEN /hpf (<or=2+); Red Blood Cells-Urine 0 SEEN /hpf (0-5)
[2023-03-30 17:18] LABS: Color, Urine Yellow (Yellow); Glucose, Dipstick Normal (Normal); Ketone-Dipstick 5 mg/dl (Negative); Leukocyte Esterase-Dipstick 500 /ul (Negative); Nitrite-Dipstick Negative (Negative); Occult Blood-Urine 10 /ul (Negative); Protein-Dipstick 15 mg/dl (Negative); Specific Gravity, Urine 1.015 (1.002-1.030); Urine Bilirubin Dipstick Negative (Negative); Urine Clarity Clear (Clear); Urine Urobilinogen Normal (Normal)
[2023-03-30 17:37] LABS: Absolute Lymphocyte Count 0.09 X10^3/uL (0.83-4.51); Absolute Neutrophil Count 2.6 X10^3/uL (2.0-7.7); Basophil# 0.01 X10^3/uL; Basophil% 0.3 % (0-1); Hematocrit 38.9 % (37-47); Hemoglobin 11.8 g/dL (12.0-15.0); Lymphocyte # 0.09 X10^3/ul (0.83-4.51); Lymphocyte % 3.1 % (19-41); Mean Corp Hgb Conc 30.3 g/dL (32-36); Mean Corpuscular Hgb 26.8 pg (27.0-32.0); Mean Corpuscular Volume 88.2 fL (81-99); Monocyte# 0.19 X10^3/uL; Monocyte% 6.6 % (0-10); NRBC Flagged by Analyzer 0 % (0-5); Neutrophil # 2.58 X10^3/uL (2.7-7.7); Neutrophil % 89.3 % (47-70); POSITIVE COUNT YES; POSITIVE DIFFERENTIAL YES; RBC Distribution Width CV 17.1 % (11.6-14.6); RBC Distribution Width SD 54.8 fl (35.1-43.9); Red Blood Count 4.41 M/mm3 (4.2-5.4); White Blood Count 2.9 K/mm3 (4.4-11.0)
--- OUTSIDE RECORDS SUMMARY | 2023-03-30 17:44 | XMS RPT_ITS | CCD ---
Author Name Unknown Address [address] [facility] [facility] [address] [place] [address] Organization [facility] Care Team Providers Care Kaiawhina Name Role Phone Zeke Chapman Unavailable Zeke Chapman Primary Care Provider MICHELLE MENSAH, DR ZEKE Denton Primary Care Physician Un available Zeke Chapman Referring Unavailable Gholam, Dr. Melissa Attending Unavailable Zeke Chapman Primary Care Unavailable Zeke Chapman Referring Unavailable Gholam, Dr. Melissa Attending Unavailable Zeke Chapman Primary Care Unavailable SUPRIYA CHAPA MD Attending Nilesh CHAPMAN MD, DR ZEKE Denton Primary Care Unavailab Janet MENSAH, DR SIMPSON Attending Karl CHAPMAN MD, DR ZEKE Denton Primary Care Unavailab luis angel YANCEY MD, DR SIMPSON Attending Karl CHAPMAN MD, DR ZEKE Denton Primary Care Unavailab le Allergies Allergy Classification Reported Allergen(s) Allergy Type Date of Onset Reaction(s) Facility Sulfonamides (antibiotic) (1 source) Sulfonamides (Antibiotic); Translations: [Sulfa Drugs] Drug Allergy Unknown [facility] [id number] [facility] Work Phone: (5 sources) Sulfonamides (Antibiotic); Translations: [Sulfa Drugs] Allergy to drug (finding) Unknown [facility] [address] [facility] Work Phone: (1 source) Sulfamethoxazole / Trimethoprim Drug Allergy 9 [facility] Work Phone: (2 sources) Sulfonamides (Antibiotic); Translations: [sulfa drugs] Drug allergy [facility] Medications Current Medications Medication Drug Class(es) [...] Date Time Vital Sign Value Performing Clinician Faci lity 04-27-2022 10:05-0500 Diastolic Blood Pressure Non-Invasive [address] TATIANA YANCEY MD [facility] 04-27-2022 10:05-0500 Heart rate 99 /min DR TATIANA YANCEY MD [facility] 04-27-2022 10:05-0500 Respiratory rate 14 /min DR TATIANA YANCEY MD [facility] 04-27-2022 10:05-0500 Systolic Blood Pressure Non-Invasive [address] TATIANA YANCEY MD [facility] 04-27-2022 10:00-0500 Diastolic Blood Pressure Non-Invasive [address] TATIANA YANCEY MD [facility] 04-27-2022 10:00-0500 Heart rate 93 /min DR TATIANA YANCEY MD [facility] 04-27-2022 10:00-0500 Systolic Blood Pressure Non-Invasive [address] TATIANA YANCEY MD [facility] 04-27-2022 09:55-0500 Diastolic Blood Pressure Non-Invasive [address] TATIANA YANCEY MD [facility] 04-27-2022 09:55-0500 Heart rate 95 /min DR TATIANA YANCEY MD [facility] 04-27-2022 09:55-0500 Respiratory rate 14 /min DR TATIANA YANCEY MD [facility] 04-27-2022 09:55-0500 Systolic Blood Pressure Non-Invasive [address] TATIANA YANCEY MD [facility] 04-27-2022 09:45-0500 Respiratory Rate - Anes 5 br/min DR TATIANA YANCEY MD [facility] 04-27-2022 09:40-0500 Respiratory Rate - Anes 36 br/min DR TATIANA YANCEY MD [facility] 04-27-2022 09:35-0500 Respiratory Rate - Anes 28 br/min DR TATIANA YANCEY MD [facility] 04-27-2022 07:46-0500 Body height 147.[address] TATIANA YANCEY MD [facility] 04-27-2022 07:46-0500 Body weight 54.[address] TATIANA YANCEY MD [facility] 04-27-2022 07:46-0500 Body weight 25.12 kg/m2 DR TATIANA YANCEY MD [facility] 04-27-2022 07:29-0500 Body height 147.[address] TATIANA YANCEY MD [facility] 04-27-2022 07:29-0500 Body temperature 96.8 [degF] DR TATIANA YANCEY MD [facility] 04-27-2022 07:29-0500 Body weight 54.[address] TATIANA YANCEY MD [facility] 04-27-2022 07:29-0500 Heart rate 96 /min DR TATIANA YANCEY MD [facility] 03-23-2022 09:24-0500 Diastolic Blood Pressure Non-Invasive [address] TATIANA YANCEY MD [facility] 03-23-2022 09:24-0500 Heart rate 88 /min DR TATIANA YANCEY MD [facility] 03-23-2022 09:24-0500 Respiratory rate 15 /min DR TATIANA YANCEY MD [facility] 03-23-2022 09:24-0500 Systolic Blood Pressure Non-Invasive [address] TATIANA YANCEY MD [facility] 03-23-2022 09:19-0500 Heart rate 96 /min DR TATIANA YANCEY MD [facility] 03-23-2022 09:13-0500 Body temperature 97.52 [degF] DR TATIANA YANCEY MD [facility] 03-23-2022 09:13-0500 Diastolic Blood Pressure Non-Invasive [address] TATIANA YANCEY MD [facility] 03-23-2022 09:13-0500 Heart rate 100 /min DR TATIANA YANCEY MD [facility] 03-23-2022 09:13-0500 Respiratory rate 26 /min DR TATIANA YANCEY MD [facility] 03-23-2022 09:13-0500 Systolic Blood Pressure Non-Invasive [address] TATIANA YANCEY MD [facility] 03-23-2022 09:10-0500 Diastolic Blood Pressure Non-Invasive [address] TATIANA YANCEY MD [facility] 03-23-2022 09:10-0500 Respiratory Rate - Anes 9 br/min DR TATIANA YANCEY MD [facility] 03-23-2022 09:10-0500 Systolic Blood Pressure Non-Invasive [address] TATIANA YANCEY MD [facility] 03-23-2022 09:05-0500 Respiratory Rate - Anes 22 br/min DR TATIANA YANCEY MD [facility] 03-23-2022 09:00-0500 Respiratory Rate - Anes 19 br/min DR TATIANA YANCEY MD [facility] 03-23-2022 07:45-[address] TATIANA YANCEY MD [facility] 03-23-2022 07:45-[address] TATAINA YANCEY MD [facility] 03-23-2022 07:45-0500 Body temperature 97.34 [degF] DR TATIANA YANCEY MD [facility] 03-23-2022 07:45-0500 Heart rate 95 /min DR TATIANA YANCEY MD [facility] 03-23-2022 07:45-0500 Respiratory rate 18 /min DR TATIANA YANCEY MD [facility] 03-23-2022 07:33-0500 Body height 147.[address] TATIANA YANCEY MD [facility] 03-23-2022 07:33-0500 Body weight 54.[address] TATIANA YANCEY MD [facility] 03-23-2022 07:33-0500 Body weight 25.12 kg/m2 DR TATIANA YANCEY MD [facility] Encounters Encounter Date Encounter Type Care Provider Facility Start: 09-18-2022 End: 09-23-2022 ambulatory SUPRIYA CHAPA MD Facility:A Start: 04-28-2022 AUDIT Zeke sharma Work Phone: [facility]Beev[facility]reteqqvfq[facility]P [facility] [address] [facility] Work Phone: Start: 04-27-2022 End: 04-27-[address] TATIANA YANCEY MD Facility:B Start: 04-27-2022 End: 04-27-[address] TATIANA YANCEY MD [facility] Start: 03-30-2022 ambulatory Zeke Buckley lity:[id number] Start: 03-23-2022 End: 03-23-[address] TATIANA YANCEY MD Facility:B Start: 03-23-2022 End: 03-23-[address] TATIANA YANCEY MD [facility] Start: 08-04-2021 Office outpatient vi sit 15 minutes Zeke Chapman Work Phone: OE-Mcomvfyvvgohjyym-D [place] [address] [facility] Work Phone: Start: 08-04-2021 Patient encounter procedure Zeke Chapman Work Phone: VM-Uwktbaijlnmqzxkn-J [place] [address] [facility] Work Phone: Start: 08-04-2021 ambulatory Zeke Buckley lity:[id number] Start: 07-02-2021 End: 07-02-2021 Subsequent hospital visit by physician Supriya Chapa MD Work Phone: [facility] Procedures Date Procedure Procedure Detail Performing Clinician Cataract surgery Zeke estrada Work Phone: section Zeke etsrada Work Phone: Extraction of cataract DR BROOKE YANCEY MD Plan of Treatment Date Care Activity Detail Author Start: 11-13-2021 Influenza vaccination INFLUENZA (Sea son Ended) [facility] Start: 2021 ADVANCE DIRECTIVE DISCUSSION ADVANCE DIRECTIVE DISCUSSION [facility] Start: 2021 BONE DENSITY BONE DENSITY [facility] Start: 2021 PNEUMOVAX AGE 65 AND OVER WITH 5YR LOOKBACK (#1) PNEUMOVAX AGE 65 AND OVER WITH 5YR LOOKBACK (#1) [facility] Start: 09-20-2011 DIABETES SCREEN DIABETES SCREEN [facility] Start: 2006 SHINGRIX VACCINE (1 of 2) SHINGRIX V ACCINE (1 of 2) [facility] Start: 2001 COLOGUARD (FIT-DNA) COLOGUARD (FIT-D NA) [facility] Start: 2001 Colonoscopy COLONOSCOPY [facility] Start: 2001 COLORECTAL CANCER SCREENING COLORECTAL CANCER SCREENING [facility] Start: [address] COLONOGRAPHY [facility] Start: 2001 FECAL OCCULT BLOOD FECAL OCCULT BLOO D [facility] Start: 2001 LIPID SCREEN LIPID SCREEN [facility] Start: 2001 SIGMOIDOSCOPY SIGMOIDOSCOPY [facility] Start: 1996 Mammography MAMMOGRAM [facility] Start: 06-27-1975 Urine microalbumin profile DTAP,TDAP ,TD (1 - Tdap) [facility] Start: 1974 HIV SCREENING HIV SCREENING [facility] Start: 1968 Adult depression scr eening assessment DEPRESSION SCREENING [facility] Start: 1961 COVID-19 VACCINE (1) COVID-19 VACCIN E (1) [facility] Payers Date Payer Category Payer Medicare [id number] 2008 Unknown ANTHEM BLUE CARD PPO OOS [id number] 2008-Present [phone] [facility] [address] [place] [address] PPO [id number] 1955 Unknown [id number] 1955 Unknown [id number] 1955 Unknown [id number] 1955 Unknown [id number] 1955 Unknown [id number] Unknown Social History Date Type Detail Facility Former smoker Former smoker [facility] [address] [facility] Work Phone: Start: 03-20-2022 Tobacco smoking stat [facility] Ex-smoker [facility] End: 10-02-2007 History of tobacco use Current smoker [facility] Start: 09-19-2008 Alcohol intake Not As[facility] Start: 1955 Sex Assigned At Not on file [facility] Sex Assigned At Female [facility] Functional Status Date Assessment Result Facility 04-27-2022 Functional Status [facility] 04-27-2022 Functional Status Maintained [facility] 03-23-2022 Functional Status Sleeping [facility] 03-23-2022 Functional Status Maintained [facility] Mental Status Date Assessment Result Facility 04-27-2022 Mental Status Oriented x 4 [facility] 03-23-2022 [facility] Clinical Notes 08-04-2021 to 04-27-2022 Note Date & Type Note Facility TYLER ADMISSION HISTORY AN D PHYSICIAL CHIEF COMPLAINT: HISTORY OF PRESENT ILLNESS: REVIEW OF SYSTEMS: ACTIVE PROBLEMS: (11) Ascites (3762475090) Autoimmune hepatitis (8965133260) Cirrhosis of liver (20036682) Esophageal varices (45400874) Essential thrombocythemia (7329098839) Fatigue (222419511) Fibrosis of liver (589170066) Hepatitis A immune (600460580) HTN (hypertension) (1813509970) Lupus (844739018) Osteoporosis (361603190) MEDICATIONS: Active Inpt Meds: None Active PRN Meds: None One Time Meds: None Active IV Meds: Lactated Ringers Infusion 1,000 mL (LR 1,000 mL) Start: 04/27/22 7:51:00 EST, Rate: 50 mL/hr, 04/27/22 7:51:00 EST ALLERGIES: (1) sulfa drug FAMILY HISTORY: SOCIAL HISTORY: PHYSICAL EXAM: VITALS: QymscuUbegZRAujdsGDFxD0LFS2CowyNv(kg) 04/27 07:2936.0--1551171FK16/13 54.5 04/27 54.5 24 Hr Tmax: 36.0 [...] LABS: 36hr Labs 04/27 0745 Blood Glucose, Siowktkca82X Blood Glucose, Iuedmuocc22N DIAGNOSTICS: IMPRESSION: PLAN: History and Physical Update I have examined the patient; reviewed the H&P and there are no changes to the H&P unless noted below. [facility] 02-13-2023 Hospital Discharge instructions Patient Education [...] before eating solid foods. General instructions Take rhky-wdj-zwloqgy and prescription medicines only as told by [...] 06/21/2016 Document Revised: 05/30/2018 Document Reviewed: 06/21/2016 [employer] Patient Education 2020 [employer]. 04/27/2022 09:53:41 9 - AO Minor Esophagogastroduodenoscopy [...] Care 04/02/2022 14:52:05 With:TATIANA YANCEY MD Address: [address] [facility] [address] [place] [address] [phone] When: Unknown Comments:Follow-up as needed [facility] 02-13-2023 Summary of episode note Discharge Instructions Thank you for allowing [facility] to assist you with your healthcare needs. The following is importantdischarge information regarding your hospital visit. Your Care Team MICHELLE MENSAH, ZEKE Denton Your Diagnosis EGD WITH BANDING What to do next Follow Up Appointments Follow Up with TATIANA YANCEY MD When Why: Follow-up as needed Where: [address] [facility] [address] [place] [address] [phone] Allergies sulfa drug Medications Please ask your [...] before eating solid foods. General instructions Take drdj-uxz-mxkmpii and prescription medicines only as told by [...] 06/21/2016 Document Revised: 05/30/2018 Document Reviewed: 06/21/2016 [employer] Patient Education 2020 [employer] Esophagogastroduodenoscopy This is an endoscopic procedure (a [...] to receive it can visit one of [facility] vaccine clinics. There are many vaccine clinic locations within the [facility]. For locations and available times, please visit [email or web address] It is important to note that some COVID mobile vaccine clinics are held outdoors and may be canceled in rainy or stormy conditions. To learn more about pediatric vaccinations (ages 5-11), we invite you to visit the [facility] webpage. https://www.[email or web address]/pages/4747-Gtbfj-Mibuoeairot-Hcaskdgzgv-Uaqvy-Vfv stions.htmlTo learn more about the COVID-19 vaccine, we invite you to visit the [facility] website for a list of frequently asked questions. [email or web address] [facility] Patient Portal Access Instructions: Stay connected with your healthcare team and access your personal medical information anytime with the [facility] Patient Portal.If you would like a full copy of your medical records, please contact the [facility] Medical Records Department, Wednesday through Wednesday between 8a.m. and 4:30p.m. Please follow the directions below to access the portal: 1.Access the email account you provided upon registration to the [facility].2.Look for an invitation email from [facility].3.Open the email and access the invitation link: Accept Invitation to [facility]4.Fill in the required barrios to create your account. Sign into [email or web address] with your username and password that you [...] you will allow to register on the [facility] Patient Portal for access to your information. You can also access the [facility] Patient Portal on the [place] [employer] denita. Simply click on Health Records under Nethub and then click on the [facility] logo. HOW TO SAFELY DISPOSE OF PRESCRIPTION [...] Call your local pharmacy or go to [email or web address] to find one close to you.3.Make use of household items: Use cat litter or old coffee grounds to dispose medications if other options arenot available. Mix your drugs with these household products, seal them in an airtight container andthrow it into the garbage. Call [facility]: [phone] to be sure your drugs can be [...] am aware that I should contactmy doctor. Patient/Digital Media Director Signature: Date/Time: Relationship to Patient: Witness Name/Signature: Date/Time: [facility]02-13-2023 Anesthesiology Consult note Patient: JAKY PRESTON Age: 66 years Sex: Female : 1955 Associated Diagnoses: None Author: PAPITO LORD APRN-COMPLIANCE REPRESENTATIVE DEALER Assessment Postanesthesia assessment Vitals: Vital signs from [...] by PAPITO LORD on 04/27/2022 09:51 AM [facility]02-13-2023 Note TYLER ADMISSION HISTORY AND PHYSICIAL CHIEF COMPLAINT: HISTORY OF PRESENT ILLNESS: REVIEW OF SYSTEMS: ACTIVE PROBLEMS: (11) Ascites (0002740285) Autoimmune hepatitis (7295856717) Cirrhosis of liver (75832365) Esophageal varices (74152675) Essential thrombocythemia (7189557848) Fatigue (600425781) Fibrosis of liver (961443505) Hepatitis A immune (340251235) HTN (hypertension) (4511754162) Lupus (585233399) Osteoporosis (113710452) MEDICATIONS: Active Inpt Meds: None Active PRN Meds: None One Time Meds: None Active IV Meds: Lactated Ringers Infusion 1,000 mL (LR 1,000 mL) Start: 04/27/22 7:51:00 EST, Rate: 50 mL/hr, 04/27/22 7:51:00 EST ALLERGIES: (1) sulfa drug FAMILY HISTORY: SOCIAL HISTORY: PHYSICAL EXAM: VITALS: BnvwttMlikWYXzjglOQWsH3RSH9PfqnFo(kg) 04/27 07:2936.0--5819326IR19/13 54.5 04/27 54.5 24 Hr Tmax: 36.0 [...] LABS: 36hr Labs 04/27 0745 Blood Glucose, Dunmlxgrb50H Blood Glucose, Glfgbtedo39V DIAGNOSTICS: IMPRESSION: PLAN: History and Physical Update I have examined the patient; reviewed the H&P and there are no changes to the H&P unless noted below. Digitally Signed by TATIANA YANCEY MD on 04/27/2022 09:27 AM [facility]02-13-2023 Anesthesiology Consult note Patient: JAKY PRESTON Age: 66 years Sex: Female : 1955 Associated Diagnoses: None Author: PAPITO LORD APRN-COMPLIANCE REPRESENTATIVE DEALER Preoperative Information Anesthesia history Patient's history: negative. [...] Mother Procedure history: CE - Cataract extraction ([id number]). Social History Social & Psychosocial Habits Alcohol [...] Resp Rate 20 br/min (APR 27 07:29) PHT764 mmHg (APR 27:29) DBP67 mmHg (APR 27:) BMI25.12 (APR 27 07:46) Measurements from flowsheet : Measurements 04/27/2022 7:46 EST Height 147.3 cm Admission Weight 54.5 kg [place] Body Weight 40.88 kg BSA Admission 1.47 Body Mass Index 25.12 kg/m2 04/27/2022 7:29 EST Height 147.3 cm Admission Weight 54.5 kg Weight Lbs 119.9 lb [place] Body Weight 40.88 kg Pain assessment: Pain [...] Surgeon SN - CAt - Role Performed Inspector Toys 1 04/27/2022 7:46 EST Designated Person #1 We May Share RADHA Selby [phone] Designated Person #1 Relationship Spouse Height 147.3 cm Admission Weight 54.5 kg [place] Body Weight 40.88 kg BSA Admission 1.47 [...] evident Teaching Method Explanation Preferred Written Language Angolan Preferred Spoken Language Angolan Information Given by Patient Patient's Current Physicians [...] Weight 54.5 kg Weight Lbs 119.9 lb [place] Body Weight 40.88 kg Temperature Temporal Artery [...] no difficulties Skin Temperature Warm Skin Description Bier, Normal for ethnicity, Dry Skin Integrity Intact [...] Void 04/27/2022 6:00 . Assessment and Plan [place] [employer] Anesthesiologists (ASA) physical status classification: Class III. Anesthetic Preoperative Plan Anesthetic technique: MAC. Postoperative pain management: Per surgeon. Risks discussed: nausea, vomiting, sore throat, dental injury, hypotension, allergic reaction, serious complications. Informed consent: signed by patient. Digitally Signed by PAPITO LORD on 04/27/2022 07:54 AM [facility]01-09-2023 Evaluation + Plan noteExtracted from: Title:Clinical Document Author:TATIANA YANCEY Date:03/23/22 TYLER ADMISSION HISTORY AN D PHYSICIAL CHIEF COMPLAINT: HISTORY OF PRESENT ILLNESS: REVIEW OF SYSTEMS: ACTIVE PROBLEMS: (11) Ascites (1344452590) Autoimmune hepatitis (0234596113) Cirrhosis of liver (02671969) Esophageal varices (32322248) Essential thrombocythemia (4185285973) Fatigue (874022969) Fibrosis of liver (643677618) Hepatitis A immune (017940203) HTN (hypertension) (3909040063) Lupus (504845220) Osteoporosis (080427235) MEDICATIONS: Active Inpt Meds: None Active PRN Meds: None One Time Meds: None Active IV Meds: Lactated Ringers Infusion 1,000 mL (LR 1,000 mL) Start: 03/23/22 7:29:00 EST, Rate: 50 mL/hr, 03/23/22 7:29:00 EST ALLERGIES: (1) sulfa drug FAMILY HISTORY: SOCIAL HISTORY: PHYSICAL EXAM: VITALS: ImhkhgHladMHOnusvXCCrL1BMP4HstkZw(kg) 03/23 07:4536.3--055969AM44/09 54.5 24 Hr Tmax: 36.3 at 03/23 [...] changes to the H&P unless noted below. [facility] 01-09-2023 Hospital Discharge instructions Patient Education [...] water added (diluted fruit juice). Eat bland, zslz-vz-hyvwpc foods in small amounts as you are able. These foods include bananas, applesauce, rice, lean meats, toast, and crackers. Avoid fluids that contain a lot of sugar or caffeine, such as energy drinks, sports drinks, and soda. Avoid alcohol. Avoid spicy or fatty foods. General instructions Take aikq-exw-jzqtqyz and prescription medicines only as told by your health care provider. Drink enough fluid to keep your urine pale yellow. Wash your hands often using soap and water. If soap and water are not available, use hand manager skilled. Make sure that all people in your [...] eating and drinking to prevent dehydration. Take bfkw-igf-pnhsuis and prescription medicines only as told by [...] 03/01/2006 Document Revised: 06/23/2019 Document Reviewed: 08/09/2018 [employer] Patient Education 2020 [employer]. 03/23/2022 09:25:58 Monitored Anesthesia Care, Care After [...] before eating solid foods. General instructions Take tfgf-nsv-gjfyqto and prescription medicines only as told by [...] 06/21/2016 Document Revised: 05/30/2018 Document Reviewed: 06/21/2016 [employer] Patient Education 2020 [employer] Follow Up Care 02/26/2022 13:56:12 With:TATIANA YANCEY MD Address: [address] [phone] When: Unknown Comments:in one month [facility] 01-09-2023 Summary of episode note Discharge Instructions Thank you for allowing [facility] to assist you with your healthcare needs. The following is importantdischarge information regarding your hospital visit. Your Care Team MICHELLE MENSAH, ZEKE Denton What to do next Follow Up Appointments Follow Up with TATIANA YANCEY MD When Why: as needed Where: [address] [place] [phone] Allergies sulfa drug Medications Please ask your [...] water added (diluted fruit juice). Eat bland, tjcr-wi-klksad foods in small amounts as you are able. These foods include bananas, applesauce, rice, lean meats, toast, and crackers. Avoid fluids that contain a lot of sugar or caffeine, such as energy drinks, sports drinks, and soda. Avoid alcohol. Avoid spicy or fatty foods. General instructions Take gcvu-ukq-fvsiquu and prescription medicines only as told by your health care provider. Drink enough fluid to keep your urine pale yellow. Wash your hands often using soap and water. If soap and water are not available, use hand manager skilled. Make sure that all people in your [...] eating and drinking to prevent dehydration. Take wybp-ljo-fgwixuj and prescription medicines only as told by [...] 03/01/2006 Document Revised: 06/23/2019 Document Reviewed: 08/09/2018 [employer] Patient Education 2020 [employer] Monitored Anesthesia Care, Care After These [...] before eating solid foods. General instructions Take zgdc-zbn-sifxyrp and prescription medicines only as told by [...] Document Reviewed: 06/21/2016 [employer] Patient Education 2020 [employer] Additional Information VACCINATE! IT SAVES LIVES! Members of the community who have not yet received the COVID-19 vaccine and would like to receive it can visit one of [facility] vaccine clinics. There are many vaccine clinic locations within the [facility]. For locations and available times, please visit [email or web address] It is important to note that some COVID mobile vaccine clinics are held outdoors and may be canceled in rainy or stormy conditions. To learn more about pediatric vaccinations (ages 5-11), we invite you to visit the [facility] webpage. https://www.[email or web address]/[email or web address]-Zfswe-Peckcynobtj-Zwwklvwdxt-Pseew-Eyf [email or web address].htmlTo learn more about the COVID-19 vaccine, we invite you to visit the [facility] website for a list of frequently asked questions. [email or web address] _[email or web address].pdf [facility] Patient Portal Access Instructions: Stay connected with your healthcare team and access your personal medical information anytime with the [facility] Patient Portal.If you would like a full copy of your medical records, please contact the [facility] Medical Records Department, Wednesday through Wednesday between 8a.m. and 4:30p.m. Please follow the directions below to access the portal: 1.Access the email account you provided upon registration to the [facility].2.Look for an invitation email from [facility].3.Open the email and access the invitation link: Accept Invitation to [facility].Fill in the required barrios to create your account. Sign into [email or web address] with your username and password that you [...] you will allow to register on the [facility] Patient Portal for access to your information. You can also access the [facility] Patient Portal on the [place] [employer] denita. Simply click on Health Records under [employer] and then click on the [employer] logo. HOW TO SAFELY DISPOSE OF PRESCRIPTION [...] Call your local pharmacy or go to [email or web address] to find one close to you.3.Make use of household items: Use cat litter or old coffee grounds to dispose medications if other options arenot available. Mix your drugs with these household products, seal them in an airtight container andthrow it into the garbage. Call [facility]: [phone] to be sure your drugs can be [...] am aware that I should contactmy doctor. Patient/Digital Media Director Signature: Date/Time: Relationship to Patient: Witness Name/Signature: Date/Time: [facility]01-09-2023 Anesthesiology Consult note Patient: JAKY PRESTON [...] by AGUSTÍN COSBY on 03/23/2022 09:14 AM [facility]01-09-2023 Note TYLER ADMISSION HISTORY AND PHYSICIAL CHIEF COMPLAINT: HISTORY OF PRESENT ILLNESS: REVIEW OF SYSTEMS: ACTIVE PROBLEMS: (11) Ascites (7040526570) Autoimmune hepatitis (1331931134) Cirrhosis of liver (98042287) Esophageal varices (21660586) Essential thrombocythemia (5030271472) Fatigue (922521079) Fibrosis of liver (644175228) Hepatitis A immune (842401732) HTN (hypertension) (9501497829) Lupus (836055229) Osteoporosis (924242404) MEDICATIONS: Active Inpt Meds: None Active PRN Meds: None One Time Meds: None Active IV Meds: Lactated Ringers Infusion 1,000 mL (LR 1,000 mL) Start: 03/23/22 7:29:00 EST, Rate: 50 mL/hr, 03/23/22 7:29:00 EST ALLERGIES: (1) sulfa drug FAMILY HISTORY: SOCIAL HISTORY: PHYSICAL EXAM: VITALS: UnwnekXjogFAEnsaxYZAlF5NQF4MavyFp(kg) 03/23 07:4536.3--[id number]/09 54.5 24 Hr Tmax: 36.3 at 03/23 [...] TATIANA YANCEY MD on 03/23/2022 08:55 AM [facility]01-09-2023 Anesthesiology Consult note Patient: JAKY PRESTON Age: 66 years Sex: Female : 1955 Associated Diagnoses: None Author: AGUSTÍN COSBY 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 Social History Social & Psychosocial Habits Alcohol 03/20/2022 Use: Past Tobacco 03/20/2022 Tobacco Use: Former smoker, quit more . Physical Examination Vital Signs(last 24 hrs) Last Charted BMI25.12 (MAR 23 07:33) Measurements from flowsheet : Measurements 03/23/2022 7:33 EST Height 147.3 cm Admission Weight 54.5 kg [place] Body Weight 40.88 kg BSA Admission 1.47 [...] Person #1 We May Share RADHA Selby [phone] Designated Person #1 Relationship Spouse Height 147.3 cm Admission Weight 54.5 kg [place] Body Weight 40.88 kg BSA Admission 1.47 [...] evident Teaching Method Explanation Preferred Written Language Angolan Preferred Spoken Language Angolan Information Given by Patient Patient's Current Physicians Dr. Brewer Discharge To, Anticipated Home with family care Prev Test Positive/Diagnosis w/COVID-19 No Current Quarantine/Isolated any Illness No Any Contact with Sick Animals/Birds No Traveled Anywhere in Last 30 Days No No Personal Devices, Patient Valuables None Admission Note-Nursing Procedure/Therapy Intake . Assessment and Plan [place] [employer] Anesthesiologists (ASA) physical status classification: Class III. Anesthetic Preoperative Plan Anesthetic technique: MAC. Postoperative pain management: Per surgeon. Informed consent: signed by patient. Digitally Signed by AGUSTÍN COSBY on 03/23/2022 07:46 AM [facility]05-23-2022 Chief complaint Narrative - Reported * [...] telehealth visit. * AUTOIMMUNE HEPATITIS AND CIRRHOSIS [id number]-Mtaobznzojbqlmns-Qazdyhej [address] [facility] Work Phone: History of Present illness Narrative* [...] * Musculoskeletal: there are no musculoskeletal symptoms. MT-Vhtwbxzxdqoacdms-Hypzisjh [facility] Work Phone: History of Present illness Narrative* [...] * Ears: there are no ear symptoms. [facility] [id number] [facility] Work Phone: Hospital course Narrative No data available for this section [facility] Summary Purpose Family History No Family [...] DATE CREATED AUTHOR AUTHOR'S ORGANIZ ATION 02/07/2020 [facility] DATE CREATED AUTHOR AUTHOR'S ORGANIZ ATION 07/23/2021 [facility] DATE CREATED AUTHOR AUTHOR'S ORGANIZ ATION 03/30/2022 [facility] DATE CREATED AUTHOR AUTHOR'S ORGANIZ ATION 07/24/2022 [employer] DATE CREATED AUTHOR AUTHOR'S ORGANIZ ATION 09/25/2022 [facility] ([place]) Source Comments (unrecognize d section and content) In the event this informatio n is protected by the Federal Confidentiality of Alcohol and Drug Abuse Patient Records regulations: The Federal rules restrict any use of the information to criminally investigate or prosecute any alcohol or drug abuse patient.[facility] Teams (unrecognized sec tion and content) Care Team (unrecognized sect ion and content) Care Team Personnel Name: ZEKE CHAPMAN MD Member Role: Primary Care Physician Address: Address: [address] [place] [address]- Care Team Related Persons Name: PRESTON JUDY Address: [place] [address] Care Team Personnel Name: ZEKE CHAPMAN MD Member Role: Primary Care Physician Address: Address: [address] [place] [address] Care Team Related Persons Name: PRESTON, JUDY Address: [place] [address] FOR RECORDS PERTAINING TO PATIENTS WHO ARE [...] BE BASED ON THE PRIMARY CLINICAL RECORDS. [facility] [employer] [facility]. provides no warranty or guarantee of the accuracy or completeness of information in this document.
[2023-03-30 17:50] LABS: Renal Epithelial Cells 5-10 SEEN /hpf (0-5); Squamous Epithelial Cells - UA 5-10 SEEN /hpf (5-10); White Blood Cells 5-10 SEEN /hpf (0-5)
[2023-03-30 17:56] LABS: Differential Indicated SCAN CRITERIA MET
[2023-03-30 17:57] LABS: Erythrocyte Sedimentation Rate 49 mm/hr (0-30)
[2023-03-30 18:01] LABS: AST(SGOT) 31 U/L (15-37); Alanine Aminotransfer ALT/SGPT 44 U/L (13-56); BUN 26 mg/dL (7-18); Creatinine, Serum 0.86 mg/dL (0.55-1.02); EST Glomerular Filtration Rate 70 mL/min (>60); Est Glom Filt Rate - Afr Amer 85 mL/min (>60)
[2023-03-30 18:12] LABS: Differential Comment SEE COMMENTS
[2023-03-30 18:13] LABS: Anisocytosis RARE; Hypochromasia RARE; Platelet Estimate MKD DEC (ADEQ); Red Cell Morphology N CHROM NORMAL (NORM C&C)
[2023-03-30 18:14] LABS: Macrocytosis RARE
[2023-03-30 19:47] LABS: Platelet Count 50 K/mm3 (150-450)
[2023-04-01 05:08] LABS: Complement C3 92 mg/dL (82-167)
[2023-04-01 09:34] LABS: Pathologist Review Reviewed
[2023-04-01 11:08] LABS: Anti-dsDNA Ab 1 IU/mL (0-9)
== END | disposition home or self-care (01) ==
LOC: MTLAB 16:18
PROVIDERS: PCP Family Medicine; Referring Provider Internal Medicine Rheumatology; Visit Provider Internal Medicine Rheumatology
DX: M32.9 Systemic lupus erythematosus, unspecified (principal); Z79.899 Other long term (current) drug therapy
CPT/HCPCS: 36415; 81001; 82565; 84450; 84460; 84520; 85025; 85652; 86140; 86160; 86225

== ENCOUNTER → 2023-06-03 | Outpatient (CLI) | payer MEDICARE, SELFPAY ==
--- NOTE | 2023-06-03 10:03 | US_ITS ---
INDICATION: CIRRHOSIS EXAMINATION: Ultrasound US Abdomen Limited (quadrant) TECHNIQUE: Hardy scale and color doppler imaging was performed of the right upper quadrant. COMPARISON: No relevant prior comparison study available FINDINGS: LIVER: The liver is heterogeneous in echogenicity measuring about 13.8 cm in length. The portal vein is patent with normal hepatopedal flow. No focal hepatic lesion. There is no free fluid. GALLBLADDER AND BILIARY TREE: Multiple gallstones are seen. The gallbladder wall measures 3 mm. The proximal common bile duct measures 5 mm, which is within normal limits for the patient''s age. Sonographic Hall''s sign: Negative. PANCREAS: The pancreas as visualized on this examination is grossly unremarkable but suboptimally seen. RIGHT KIDNEY: The right kidney measures 9.6 cm in length. The renal cortex measures 1 cm. No evidence of hydronephrosis. US/Abdomen Limited IMPRESSION: 1. Multiple gallstones with borderline thickening of the gallbladder wall. 2. Heterogeneous liver which may reflect fatty infiltration or hepatocellular disease. Electronically Signed: Jose Caba MD at 10:35 EDT ,
[2023-06-03 10:28] LABS: Hemoglobin 13.2 g/dL (12.0-15.0); Mean Corp Hgb Conc 31.4 g/dL (32-36); Mean Corpuscular Hgb 28.4 pg (27.0-32.0); Mean Corpuscular Volume 90.3 fL (81-99); POSITIVE COUNT YES; Platelet Count 60 K/mm3 (150-450); RBC Distribution Width SD 56.4 fl (35.1-43.9); Red Blood Count 4.65 M/mm3 (4.2-5.4); White Blood Count 3.4 K/mm3 (4.4-11.0)
[2023-06-03 10:39] LABS: International Normalized Ratio 1.2; Prothrombin Time (Protime)PT. 14.9 SECONDS (11.7-14.9)
[2023-06-03 11:00] LABS: ALB/GLOB Ratio 0.6 RATIO (0.9-2.4); AST(SGOT) 28 U/L (15-37); Alanine Aminotransfer ALT/SGPT 46 U/L (13-56); Albumin, Serum 3.1 g/dL (3.2-5.0); Alkaline Phosphatase 155 U/L (45-117); Anion Gap 5 (5-15); BUN 35 mg/dL (7-18); BUN/Creat Ratio 38.2 RATIO (10-20); Calcium,Total 9.5 mg/dL (8.5-10.1); Chloride 106 mmol/L (98-107); Creatinine, Serum 0.92 mg/dL (0.55-1.02); EST Glomerular Filtration Rate 65 mL/min (>60); Est Glom Filt Rate - Afr Amer 79 mL/min (>60); Globulin 5.2 g/dL (2.2-4.2); Glucose 110 mg/dL (74-106); Potassium 4.2 mmol/L (3.5-5.1); Protein, Total 8.3 g/dL (6.4-8.2); Sodium Level 138 mmol/L (136-145)
== END | disposition home or self-care (01) ==
LOC: US 09:39
PROVIDERS: Referring Provider Internal Medicine Gastroenterology; Visit Provider Internal Medicine Gastroenterology
DX: K74.60 Unspecified cirrhosis of liver (principal)
CPT/HCPCS: 36415; 76705; 80053; 82105; 85027; 85610; 85730

== ENCOUNTER → 2023-07-20 | Outpatient (CLI) | payer MEDICARE, SELFPAY ==
[2023-07-20 13:16] LABS: Mucous, Urine 0 SEEN /hpf (<or=2+)
[2023-07-20 15:48] LABS: Absolute Lymphocyte Count 0.07 X10^3/uL (0.83-4.51); Absolute Neutrophil Count 3.4 X10^3/uL (2.0-7.7); Basophil# 0.01 X10^3/uL; Basophil% 0.3 % (0-1); Hematocrit 40.4 % (37-47); Hemoglobin 12.4 g/dL (12.0-15.0); Lymphocyte # 0.07 X10^3/ul (0.83-4.51); Lymphocyte % 1.9 % (19-41); Mean Corp Hgb Conc 30.7 g/dL (32-36); Mean Corpuscular Hgb 28.4 pg (27.0-32.0); Mean Corpuscular Volume 92.7 fL (81-99); Monocyte# 0.18 X10^3/uL; Monocyte% 4.9 % (0-10); NRBC Flagged by Analyzer 0 % (0-5); Neutrophil # 3.36 X10^3/uL (2.7-7.7); Neutrophil % 91.8 % (47-70); POSITIVE COUNT YES; POSITIVE DIFFERENTIAL YES; Platelet Count 54 K/mm3 (150-450); RBC Distribution Width CV 16.1 % (11.6-14.6); RBC Distribution Width SD 55.4 fl (35.1-43.9); Red Blood Count 4.36 M/mm3 (4.2-5.4); White Blood Count 3.7 K/mm3 (4.4-11.0)
[2023-07-20 15:50] LABS: Color, Urine Yellow (Yellow); Glucose, Dipstick 50 mg/dl (Normal); Ketone-Dipstick 5 mg/dl (Negative); Leukocyte Esterase-Dipstick 500 /ul (Negative); Nitrite-Dipstick Negative (Negative); Occult Blood-Urine 10 /ul (Negative); Protein-Dipstick 15 mg/dl (Negative); Urine Bilirubin Dipstick Negative (Negative); Urine Clarity Clear (Clear); Urine Urobilinogen Normal (Normal)
[2023-07-20 16:01] LABS: Erythrocyte Sedimentation Rate 37 mm/hr (0-30)
[2023-07-20 16:04] LABS: Differential Indicated SCAN CRITERIA MET
[2023-07-20 16:09] LABS: AST(SGOT) 30 U/L (15-37); Alanine Aminotransfer ALT/SGPT 43 U/L (13-56); BUN 27 mg/dL (7-18); Creatinine, Serum 0.86 mg/dL (0.55-1.02); Differential Comment SEE COMMENTS; EST Glomerular Filtration Rate 70 mL/min (>60); Est Glom Filt Rate - Afr Amer 85 mL/min (>60)
[2023-07-20 16:10] LABS: Anisocytosis RARE; Macrocytosis RARE; Ovalocyte RARE; Platelet Estimate MOD DEC (ADEQ); Platelet Morphology LARGE; Red Cell Morphology N CHROM NORMAL (NORM C&C)
[2023-07-20 16:12] LABS: Bacteria 1+ /hpf (None Seen); Red Blood Cells-Urine 0-5 SEEN /hpf (0-5); White Blood Cells 25-50 SEEN /hpf (0-5)
[2023-07-20 16:13] LABS: Squamous Epithelial Cells - UA 0-5 SEEN /hpf (5-10)
[2023-07-22 05:07] LABS: Complement C3 99 mg/dL (82-167)
[2023-07-22 15:09] LABS: Anti-dsDNA Ab 1 IU/mL (0-9)
== END | disposition home or self-care (01) ==
LOC: MTLAB 13:13
PROVIDERS: PCP Internal Medicine; Referring Provider Internal Medicine Rheumatology; Visit Provider Internal Medicine Rheumatology
DX: M32.9 Systemic lupus erythematosus, unspecified (principal); Z79.899 Other long term (current) drug therapy
CPT/HCPCS: 36415; 81001; 82565; 84450; 84460; 84520; 85025; 85652; 86140; 86160; 86225

== ENCOUNTER → 2023-10-05 | Outpatient (CLI) | payer MEDICARE, SELFPAY ==
--- NOTE | 2023-10-05 09:47 | BD_ITS ---
STUDY: DUAL ENERGY X-RAY ABSORPTIOMETRY / DXA REASON FOR EXAM: Female, 68 years old. Z79.52 TECHNIQUE: Bone Mineral Density (BMD) measurements of lumbar spine and bilateral hips were obtained. COMPARISON: Comparison is made with prior study dated September 30, 2021. FINDINGS: Lumbar Spine (L1-L4): g/cm2 (0.960) / T-score (-0.8) / Z-score (1.1) Findings are suggestive of normal bone density with a low fracture risk. Left Femur Total: g/cm2 (0.551) / T-score (-3.2) / Z-score (-1.9) Left Femoral Neck: g/cm2 (0.434) / T-score (-3.7) / Z-score (-2.1) Right Femur Total: g/cm2 (0.565) / T-score (-3.1) / Z-score (-1.7) Right Femoral Neck: g/cm2 (0.504) / T-score (-3.1) / Z-score (-1.5) The T-Scores on the most recent prior examination were: Lumbar Spine (L1-L4): There has been worsening of bone density since the previous examination. Left Femur Total: which represents a worsening of 10.9. Right Femur Total: which represents a worsening of 11.6%. BD/Dexa Bone Density Study IMPRESSION: The patient is considered osteoporotic as outlined below according to World [place] Organization (WHO) criteria with a high fracture risk. There has been worsening of bone density since the previous examination. Reference Information: The T-score is the number of standard deviations above or below the standard which is normal for young adults at their peak bone mineral density. The World Health Organization (WHO) interprets the T-scores as follows: Above -1 Normal bone density Between -1 and -2.5 Osteopenia Equal to / or below -2.5 Osteoporosis As a practical clinical guideline, osteopenia may be graded as follows: Mild -1 through -1.5 Moderate -1.6 through -2.0 Severe -2.1 through -2.4 The Z-score is the number of standard deviations above or below age-matched controls. A Z-score of less than -1.5 would be considered abnormal. References: 1. NIH Osteoporosis and Related Bone Diseases www osteo.org 2. International Society for Clinical Densitometry www iscd.org 3. National Osteoporosis Foundation www nof.org Electronically Signed: Umer Meier MD at 10:27 EDT ,
== END | disposition home or self-care (01) ==
LOC: OPBD 09:34
PROVIDERS: PCP Internal Medicine; Referring Provider Internal Medicine Gastroenterology; Visit Provider Internal Medicine Gastroenterology
DX: K74.60 Unspecified cirrhosis of liver (principal); Z79.52 Long term (current) use of systemic steroids
CPT/HCPCS: 77080

== ENCOUNTER → 2023-11-05 | Outpatient (CLI) | payer MEDICARE, SELFPAY ==
[2023-11-05 13:30] LABS: Mucous, Urine 0 SEEN /hpf (<or=2+); Red Blood Cells-Urine 0 SEEN /hpf (0-5)
[2023-11-05 15:00] LABS: Color, Urine Yellow (Yellow); Glucose, Dipstick 250 mg/dl (Normal); Ketone-Dipstick Negative (Negative); Leukocyte Esterase-Dipstick 500 /ul (Negative); Nitrite-Dipstick Negative (Negative); Occult Blood-Urine 10 /ul (Negative); Protein-Dipstick 15 mg/dl (Negative); Specific Gravity, Urine 1.015 (1.002-1.030); Urine Bilirubin Dipstick Negative (Negative); Urine Clarity Clear (Clear); Urine Urobilinogen 1 mg/dl (Normal)
[2023-11-05 15:08] LABS: Absolute Lymphocyte Count 0.05 X10^3/uL (0.83-4.51); Absolute Neutrophil Count 2.9 X10^3/uL (2.0-7.7); Basophil# 0.01 X10^3/uL; Basophil% 0.3 % (0-1); Hematocrit 36.6 % (37-47); Hemoglobin 11.4 g/dL (12.0-15.0); Lymphocyte # 0.05 X10^3/ul (0.83-4.51); Lymphocyte % 1.6 % (19-41); Mean Corp Hgb Conc 31.1 g/dL (32-36); Mean Corpuscular Hgb 28.8 pg (27.0-32.0); Mean Corpuscular Volume 92.4 fL (81-99); Mean Platelet Vol. 12.6 fl (6.2-12.0); Monocyte# 0.14 X10^3/uL; Monocyte% 4.5 % (0-10); NRBC Flagged by Analyzer 0 % (0-5); Neutrophil # 2.88 X10^3/uL (2.7-7.7); Neutrophil % 92.3 % (47-70); POSITIVE COUNT YES; POSITIVE DIFFERENTIAL YES; Platelet Count 46 K/mm3 (150-450); RBC Distribution Width CV 15.9 % (11.6-14.6); RBC Distribution Width SD 53.5 fl (35.1-43.9); Red Blood Count 3.96 M/mm3 (4.2-5.4); White Blood Count 3.1 K/mm3 (4.4-11.0)
[2023-11-05 15:11] LABS: Differential Indicated SCAN CRITERIA MET; Erythrocyte Sedimentation Rate 12 mm/hr (0-30)
[2023-11-05 15:20] LABS: AST(SGOT) 33 U/L (15-37); Alanine Aminotransfer ALT/SGPT 44 U/L (13-56); BUN 25 mg/dL (7-18); Creatinine, Serum 1.04 mg/dL (0.55-1.02); EST Glomerular Filtration Rate 56 mL/min (>60); Est Glom Filt Rate - Afr Amer 68 mL/min (>60)
[2023-11-05 15:22] LABS: Bacteria 2+ /hpf (None Seen); Squamous Epithelial Cells - UA 0-5 SEEN /hpf (5-10); White Blood Cells 5-10 SEEN /hpf (0-5)
[2023-11-05 15:56] LABS: Differential Comment SCANNED
[2023-11-05 15:57] LABS: Pathologist Review May foll
[2023-11-07 08:08] LABS: Complement C3 101 mg/dL (82-167)
[2023-11-08 14:08] LABS: Anti-dsDNA Ab 1 IU/mL (0-9)
== END | disposition home or self-care (01) ==
LOC: MTLAB 13:21
PROVIDERS: PCP Internal Medicine; Referring Provider Internal Medicine Rheumatology; Visit Provider Internal Medicine Rheumatology
DX: M32.9 Systemic lupus erythematosus, unspecified (principal); Z79.899 Other long term (current) drug therapy
CPT/HCPCS: 36415; 81001; 82565; 84450; 84460; 84520; 85025; 85652; 86140; 86160; 86225

== ENCOUNTER → 2023-11-18 | Outpatient (CLI) | payer MEDICARE, SELFPAY ==
[2023-11-18 17:44] LABS: International Normalized Ratio 1.2; Partial Thromboplast Time 26.7 Seconds (24.1-36.2); Prothrombin Time (Protime)PT. 15.3 SECONDS (11.7-14.9)
[2023-11-18 17:59] LABS: Absolute Lymphocyte Count 0.06 X10^3/uL (0.83-4.51); Absolute Neutrophil Count 3.1 X10^3/uL (2.0-7.7); Basophil# 0.01 X10^3/uL; Basophil% 0.3 % (0-1); Differential Indicated SCAN CRITERIA MET; Hematocrit 37.1 % (37-47); Hemoglobin 11.6 g/dL (12.0-15.0); Lymphocyte # 0.06 X10^3/ul (0.83-4.51); Lymphocyte % 1.8 % (19-41); Mean Corp Hgb Conc 31.3 g/dL (32-36); Mean Corpuscular Hgb 28.4 pg (27.0-32.0); Mean Corpuscular Volume 90.7 fL (81-99); Mean Platelet Vol. 11.7 fl (6.2-12.0); Monocyte# 0.21 X10^3/uL; Monocyte% 6.2 % (0-10); NRBC Flagged by Analyzer 0 % (0-5); Neutrophil # 3.06 X10^3/uL (2.7-7.7); Neutrophil % 89.9 % (47-70); POSITIVE COUNT YES; POSITIVE DIFFERENTIAL YES; Platelet Count 51 K/mm3 (150-450); RBC Distribution Width CV 15.9 % (11.6-14.6); RBC Distribution Width SD 52.5 fl (35.1-43.9); Red Blood Count 4.09 M/mm3 (4.2-5.4); White Blood Count 3.4 K/mm3 (4.4-11.0)
[2023-11-18 18:13] LABS: Differential Comment SCANNED
[2023-11-18 18:41] LABS: ALB/GLOB Ratio 0.6 RATIO (0.9-2.4); AST(SGOT) 32 U/L (15-37); Alanine Aminotransfer ALT/SGPT 49 U/L (13-56); Albumin, Serum 2.8 g/dL (3.2-5.0); Alkaline Phosphatase 170 U/L (45-117); Anion Gap 6 (5-15); BUN 25 mg/dL (7-18); Calcium,Total 9.2 mg/dL (8.5-10.1); Chloride 106 mmol/L (98-107); Cholesterol 201 mg/dL (200); Creatinine, Serum 0.76 mg/dL (0.55-1.02); EST Glomerular Filtration Rate 81 mL/min (>60); Est Glom Filt Rate - Afr Amer 98 mL/min (>60); Globulin 4.9 g/dL (2.2-4.2); Glucose 157 mg/dL (74-106); High Density Lipoprotein 38 mg/dL; Potassium 4.6 mmol/L (3.5-5.1); Protein, Total 7.7 g/dL (6.4-8.2); Sodium Level 136 mmol/L (136-145); Triglycerides 134 mg/dL; Very Low Density Lipoprotein 27 mg/dL (5-40)
[2023-11-20 08:11] LABS: AFP, Tumor Marker 2.2 ng/mL (0.0-9.2)
== END | disposition home or self-care (01) ==
PROVIDERS: PCP Internal Medicine; Referring Provider Internal Medicine Gastroenterology; Visit Provider Internal Medicine Gastroenterology
DX: K74.60 Unspecified cirrhosis of liver (principal)
CPT/HCPCS: 36415; 80053; 80061; 82105; 85025; 85610; 85730

== ENCOUNTER → 2023-11-22 | Outpatient (CLI) | payer MEDICARE, SELFPAY ==
--- NOTE | 2023-11-22 09:29 | US_ITS ---
INDICATION: CIRRHOSIS EXAMINATION: Ultrasound US Abdomen Limited (quadrant) TECHNIQUE: Hardy scale and color doppler imaging was performed of the right upper quadrant. COMPARISON: 06/03/2023 FINDINGS: LIVER: 13.4 cm length. Heterogeneous. Coarse echotexture. No definite focal abnormality. Main portal vein patent, appropriate hepatopedal direction of flow. GALLBLADDER Size: Distended. Stones: 10 mm stone in the gallbladder neck. Wall thickness: Not thickened. 3 mm. Pericholecystic fluid: None. Sonographic Hall sign: Negative. EXTRAHEPATIC BILE DUCTS: Common bile duct 5 mm not dilated. PANCREAS: Unremarkable. RIGHT KIDNEY: No hydronephrosis. ASCITES: None. US/Abdomen Limited IMPRESSION: Cholelithiasis. No evidence of acute cholecystitis. Heterogeneous liver consistent with known cirrhosis. Electronically Signed: Chiquita Huertas MD at 8:09 EDT ,
== END | disposition home or self-care (01) ==
LOC: US 09:27
PROVIDERS: PCP Internal Medicine; Referring Provider Internal Medicine Gastroenterology; Visit Provider Internal Medicine Gastroenterology
DX: K74.60 Unspecified cirrhosis of liver (principal)
CPT/HCPCS: 76705

== ENCOUNTER → 2024-01-12 | Outpatient (CLI) | payer MEDICARE, SELFPAY ==
--- NOTE | 2024-01-12 08:23 | US_ITS ---
STUDY: ABDOMINAL ULTRASOUND - ELASTOGRAPHY REASON FOR VISIT: Female, 68 years old. History of hepatitis. TECHNIQUE: Liver stiffness measurements were obtained on a [employer] RS 85 ultrasound machine using a CA 1-7 probe following the U guidelines. 3 measurements were obtained using a 2-D-SWE method. TheIQR/M was 12% suggesting a quality data set. TECHNICAL QUALITY: Adequate. COMPARISON: Comparison is made with prior study November 22, 2023. FINDINGS: Liver: There is no demonstrated mass lesion. Median liver stiffness measured 18 kPa. Abdomen: There is no demonstrated mass lesion. US/Elastography Parenchyma/Organ IMPRESSION: Liver stiffness measures 18 kPa compatible with F3-F4 (Moderate to severe liver fibrosis) Metavir score. Electronically Signed: Umer Meier MD at 11:06 EDT ,
== END | disposition home or self-care (01) ==
PROVIDERS: PCP Internal Medicine; Referring Provider Internal Medicine Gastroenterology; Visit Provider Internal Medicine Gastroenterology
DX: B19.9 Unspecified viral hepatitis without hepatic coma (principal)
CPT/HCPCS: 76981

== ENCOUNTER → 2024-01-12 | Outpatient (CLI) | payer MEDICARE, SELFPAY ==
[2024-01-12 15:27] LABS: Absolute Lymphocyte Count 0.21 X10^3/uL (0.83-4.51); Absolute Neutrophil Count 2.6 X10^3/uL (2.0-7.7); Basophil# 0.01 X10^3/uL; Basophil% 0.3 % (0-1); Hematocrit 37.7 % (37-47); Hemoglobin 11.6 g/dL (12.0-15.0); Lymphocyte # 0.21 X10^3/ul (0.83-4.51); Lymphocyte % 6.5 % (19-41); Mean Corp Hgb Conc 30.8 g/dL (32-36); Mean Corpuscular Hgb 27.4 pg (27.0-32.0); Mean Corpuscular Volume 89.1 fL (81-99); Monocyte# 0.35 X10^3/uL; Monocyte% 10.8 % (0-10); NRBC Flagged by Analyzer 0 % (0-5); Neutrophil # 2.62 X10^3/uL (2.7-7.7); Neutrophil % 81.2 % (47-70); POSITIVE COUNT YES; POSITIVE DIFFERENTIAL YES; RBC Distribution Width CV 15.4 % (11.6-14.6); RBC Distribution Width SD 50.1 fl (35.1-43.9); Red Blood Count 4.23 M/mm3 (4.2-5.4); White Blood Count 3.2 K/mm3 (4.4-11.0)
[2024-01-12 15:40] LABS: Platelet Count 50 K/mm3 (150-450)
[2024-01-12 15:41] LABS: Differential Indicated SCAN CRITERIA MET
[2024-01-12 16:51] LABS: Differential Comment SCANNED
[2024-01-14 13:08] LABS: AFP, Tumor Marker 2.2 ng/mL (0.0-9.2)
== END | disposition home or self-care (01) ==
PROVIDERS: PCP Internal Medicine; Referring Provider Internal Medicine Gastroenterology; Visit Provider Internal Medicine Gastroenterology
DX: K75.4 Autoimmune hepatitis (principal); K74.60 Unspecified cirrhosis of liver
CPT/HCPCS: 36415; 82105; 85025; 86140

== ENCOUNTER → 2024-01-26 | Outpatient (CLI) | payer MEDICARE, SELFPAY ==
[2024-01-26 18:15] LABS: Absolute Neutrophil Count 2.7 X10^3/uL (2.0-7.7); Basophil# 0.01 X10^3/uL; Basophil% 0.3 % (0-1); Hematocrit 36.2 % (37-47); Hemoglobin 11.4 g/dL (12.0-15.0); Lymphocyte % 6.5 % (19-41); Mean Corp Hgb Conc 31.5 g/dL (32-36); Mean Corpuscular Hgb 27.3 pg (27.0-32.0); Mean Corpuscular Volume 86.6 fL (81-99); Monocyte# 0.19 X10^3/uL; Monocyte% 6.1 % (0-10); NRBC Flagged by Analyzer 0 % (0-5); Neutrophil # 2.66 X10^3/uL (2.7-7.7); Neutrophil % 85.8 % (47-70); POSITIVE COUNT YES; POSITIVE DIFFERENTIAL YES; Platelet Count 45 K/mm3 (150-450); RBC Distribution Width SD 47.4 fl (35.1-43.9); Red Blood Count 4.18 M/mm3 (4.2-5.4); White Blood Count 3.1 K/mm3 (4.4-11.0)
[2024-01-27 12:02] LABS: Pathologist Review Reviewed
== END | disposition home or self-care (01) ==
LOC: MTLAB 15:22
PROVIDERS: PCP Internal Medicine; Referring Provider Internal Medicine Rheumatology; Visit Provider Internal Medicine Rheumatology
DX: D69.6 Thrombocytopenia, unspecified (principal); D64.9 Anemia, unspecified; D72.819 Decreased white blood cell count, unspecified
CPT/HCPCS: 36415; 85025

== ENCOUNTER → 2024-04-14 | Outpatient (CLI) | payer MEDICARE, SELFPAY ==
[2024-04-14 10:43] LABS: Absolute Lymphocyte Count 0.17 X10^3/uL (0.83-4.51); Absolute Neutrophil Count 1.9 X10^3/uL (2.0-7.7); Basophil# 0.02 X10^3/uL; Basophil% 0.8 % (0-1); Eosinophil# 0.01 X10^3/uL; Eosinophils% 0.4 % (0-5); Hematocrit 36.9 % (37-47); Hemoglobin 11.6 g/dL (12.0-15.0); Lymphocyte # 0.17 X10^3/ul (0.83-4.51); Lymphocyte % 7.1 % (19-41); Mean Corp Hgb Conc 31.4 g/dL (32-36); Mean Corpuscular Hgb 26.2 pg (27.0-32.0); Mean Corpuscular Volume 83.5 fL (81-99); Monocyte# 0.28 X10^3/uL; Monocyte% 11.8 % (0-10); NRBC Flagged by Analyzer 0 % (0-5); Neutrophil # 1.86 X10^3/uL (2.7-7.7); Neutrophil % 78.2 % (47-70); POSITIVE COUNT YES; POSITIVE DIFFERENTIAL YES; RBC Distribution Width CV 16.2 % (11.6-14.6); RBC Distribution Width SD 49.2 fl (35.1-43.9); Red Blood Count 4.42 M/mm3 (4.2-5.4); White Blood Count 2.4 K/mm3 (4.4-11.0)
[2024-04-14 11:03] LABS: Platelet Count 40 K/mm3 (150-450)
[2024-04-14 11:04] LABS: Differential Indicated SCAN CRITERIA MET
[2024-04-14 11:22] LABS: Platelet Estimate MKD DEC (ADEQ)
[2024-04-14 11:52] LABS: ALB/GLOB Ratio 0.6 RATIO (0.9-2.4); AST(SGOT) 26 U/L (15-37); Alanine Aminotransfer ALT/SGPT 47 U/L (13-56); Albumin, Serum 2.7 g/dL (3.2-5.0); Alkaline Phosphatase 153 U/L (45-117); Anion Gap 8 (5-15); BUN 23 mg/dL (7-18); BUN/Creat Ratio 25.3 RATIO (10-20); Calcium,Total 8.5 mg/dL (8.5-10.1); Chloride 108 mmol/L (98-107); Cholesterol 182 mg/dL (200); Creatinine, Serum 0.91 mg/dL (0.55-1.02); EST Glomerular Filtration Rate 66 mL/min (>60); Est Glom Filt Rate - Afr Amer 79 mL/min (>60); Globulin 4.9 g/dL (2.2-4.2); Glucose 85 mg/dL (74-106); High Density Lipoprotein 35 mg/dL; Potassium 3.7 mmol/L (3.5-5.1); Protein, Total 7.6 g/dL (6.4-8.2); Sodium Level 140 mmol/L (136-145); Triglycerides 149 mg/dL; Very Low Density Lipoprotein 30 mg/dL (5-40)
[2024-04-14 17:01] LABS: Hemoglobin A1c 7.4 % (3.8-5.6)
[2024-04-15 10:32] LABS: Vitamin D,25 Hydroxy 33.8 ng/mL
[2024-04-17 14:04] LABS: Pathologist Review Reviewed
== END | disposition home or self-care (01) ==
LOC: MTLAB 09:39
PROVIDERS: PCP Family Medicine; Referring Provider Family Medicine; Visit Provider Family Medicine
DX: I10 Essential (primary) hypertension (principal); E11.9 Type 2 diabetes mellitus without complications; E78.5 Hyperlipidemia, unspecified; K22.70 Barrett's esophagus without dysplasia; E03.9 Hypothyroidism, unspecified
CPT/HCPCS: 36415; 80053; 80061; 82306; 83036; 84443; 85025

== ENCOUNTER → 2024-06-05 | Outpatient (CLI) | payer MEDICARE, SELFPAY ==
[2024-06-05 11:41] LABS: Bacteria 0 SEEN /hpf (None Seen); Mucous, Urine 0 SEEN /hpf (<or=2+)
[2024-06-05 15:27] LABS: Color, Urine Yellow (Yellow); Glucose, Dipstick 50 mg/dl (Normal); Ketone-Dipstick Negative (Negative); Leukocyte Esterase-Dipstick 100 /ul (Negative); Nitrite-Dipstick Negative (Negative); Occult Blood-Urine Negative /ul (Negative); Protein-Dipstick 15 mg/dl (Negative); Specific Gravity, Urine 1.015 (1.002-1.030); Urine Bilirubin Dipstick Negative (Negative); Urine Clarity Clear (Clear); Urine Urobilinogen Normal (Normal)
[2024-06-05 15:29] LABS: Absolute Lymphocyte Count 0.25 X10^3/uL (0.83-4.51); Absolute Neutrophil Count 3.3 X10^3/uL (2.0-7.7); Basophil# 0.01 X10^3/uL; Basophil% 0.3 % (0-1); Hematocrit 38.5 % (37-47); Hemoglobin 11.7 g/dL (12.0-15.0); Lymphocyte # 0.25 X10^3/ul (0.83-4.51); Lymphocyte % 6.3 % (19-41); Mean Corp Hgb Conc 30.4 g/dL (32-36); Mean Corpuscular Hgb 25.9 pg (27.0-32.0); Mean Corpuscular Volume 85.2 fL (81-99); Monocyte% 7.6 % (0-10); NRBC Flagged by Analyzer 0 % (0-5); Neutrophil # 3.34 X10^3/uL (2.7-7.7); Neutrophil % 84.8 % (47-70); POSITIVE COUNT YES; POSITIVE DIFFERENTIAL YES; Platelet Count 47 K/mm3 (150-450); RBC Distribution Width SD 49.8 fl (35.1-43.9); Red Blood Count 4.52 M/mm3 (4.2-5.4); White Blood Count 3.9 K/mm3 (4.4-11.0)
[2024-06-05 15:34] LABS: Differential Indicated SCAN CRITERIA MET
[2024-06-05 15:37] LABS: Squamous Epithelial Cells - UA 0-5 SEEN /hpf (5-10); White Blood Cells 0-5 SEEN /hpf (0-5)
[2024-06-05 16:49] LABS: Ovalocyte 1+; Platelet Estimate MKD DEC (ADEQ); Polychromasia 1+
[2024-06-05 18:50] LABS: Red Blood Cells-Urine 0 SEEN /hpf (0-5)
[2024-06-05 23:32] LABS: AST(SGOT) 35 U/L (<=31); Alanine Aminotransfer ALT/SGPT 39 U/L (<=34); BUN 25 mg/dL (4-19); Creatinine, Serum 0.88 mg/dL (0.70-1.20); EST Glomerular Filtration Rate 72 (>60)
[2024-06-07 11:08] LABS: Anti-dsDNA Ab 1 IU/mL (0-9)
[2024-06-07 13:08] LABS: Complement C3 119 mg/dL (82-167)
[2024-06-27 15:33] LABS: Pathologist Review Reviewed
[2024-06-27 15:45] LABS: Erythrocyte Sedimentation Rate 21 mm/hr (0-30)
== END | disposition home or self-care (01) ==
PROVIDERS: PCP Family Medicine; Referring Provider Internal Medicine Rheumatology; Visit Provider Internal Medicine Rheumatology
DX: M32.9 Systemic lupus erythematosus, unspecified (principal); Z79.899 Other long term (current) drug therapy
CPT/HCPCS: 36415; 81001; 81002; 82565; 84450; 84460; 84520; 85025; 85652; 86140; 86160; 86225

== ENCOUNTER → 2024-06-19 | Outpatient (CLI) | payer MEDICARE, SELFPAY ==
[2024-06-19 18:15] LABS: Absolute Lymphocyte Count 0.15 X10^3/uL (0.83-4.51); Basophil# 0.01 X10^3/uL; Basophil% 0.3 % (0-1); Hematocrit 39.4 % (37-47); Hemoglobin 12.2 g/dL (12.0-15.0); Lymphocyte # 0.15 X10^3/ul (0.83-4.51); Lymphocyte % 4.5 % (19-41); Mean Corpuscular Hgb 26.1 pg (27.0-32.0); Mean Corpuscular Volume 84.2 fL (81-99); Monocyte# 0.14 X10^3/uL; Monocyte% 4.2 % (0-10); NRBC Flagged by Analyzer 0 % (0-5); Neutrophil # 2.98 X10^3/uL (2.7-7.7); Neutrophil % 89.8 % (47-70); POSITIVE COUNT YES; POSITIVE DIFFERENTIAL YES; Platelet Count 52 K/mm3 (150-450); RBC Distribution Width CV 16.9 % (11.6-14.6); RBC Distribution Width SD 51.3 fl (35.1-43.9); Red Blood Count 4.68 M/mm3 (4.2-5.4); White Blood Count 3.3 K/mm3 (4.4-11.0)
[2024-06-19 18:22] LABS: International Normalized Ratio 1.1; Partial Thromboplast Time 23.9 Seconds (24.1-36.2); Prothrombin Time (Protime)PT. 14.9 SECONDS (11.7-14.9)
[2024-06-19 19:09] LABS: ALB/GLOB Ratio 0.8 RATIO (0.9-2.4); AST(SGOT) 31 U/L (<=31); Alanine Aminotransfer ALT/SGPT 41 U/L (<=34); Albumin, Serum 3.5 g/dL (3.4-4.8); Alkaline Phosphatase 177 U/L (35-104); Anion Gap 12 (5-15); BUN 23 mg/dL (4-19); BUN/Creat Ratio 24.5 RATIO (10-20); Calcium,Total 9.1 mg/dL (7.6-11.0); Carbon Dioxide 21.7 mmol/L (21.0-32.0); Chloride 102 mmol/L (98-108); Creatinine, Serum 0.94 mg/dL (0.70-1.20); EST Glomerular Filtration Rate 67 (>60); Globulin 4.5 g/dL (2.2-4.2); Glucose 181 mg/dL (70-99); Potassium 4.9 mmol/L (3.3-5.1); Protein, Total 8.1 g/dL (5.9-8.4); Sodium Level 136 mmol/L (133-145); Total Bilirubin 0.64 mg/dL (0.00-1.30)
[2024-06-21 08:09] LABS: AFP, Tumor Marker < 1.8 ng/mL (0.0-9.2)
== END | disposition home or self-care (01) ==
PROVIDERS: PCP Family Medicine; Referring Provider Internal Medicine Gastroenterology; Visit Provider Internal Medicine Gastroenterology
DX: K74.60 Unspecified cirrhosis of liver (principal); I48.91 Unspecified atrial fibrillation; E11.9 Type 2 diabetes mellitus without complications; E03.9 Hypothyroidism, unspecified; I10 Essential (primary) hypertension
CPT/HCPCS: 36415; 80053; 82105; 84443; 85025; 85610; 85730

== ENCOUNTER → 2024-08-25 | Outpatient (CLI) | payer MEDICARE, SELFPAY ==
[2024-08-25 11:50] LABS: Absolute Lymphocyte Count 0.22 X10^3/uL (0.83-4.51); Absolute Neutrophil Count 3.3 X10^3/uL (2.0-7.7); Basophil# 0.01 X10^3/uL; Basophil% 0.3 % (0-1); Hematocrit 36.6 % (37-47); Hemoglobin 11.4 g/dL (12.0-15.0); Lymphocyte # 0.22 X10^3/ul (0.83-4.51); Lymphocyte % 5.8 % (19-41); Mean Corp Hgb Conc 31.1 g/dL (32-36); Mean Corpuscular Hgb 26.1 pg (27.0-32.0); Mean Corpuscular Volume 83.9 fL (81-99); Monocyte# 0.21 X10^3/uL; Monocyte% 5.6 % (0-10); NRBC Flagged by Analyzer 0 % (0-5); Neutrophil % 87.2 % (47-70); POSITIVE COUNT YES; POSITIVE DIFFERENTIAL YES; RBC Distribution Width CV 16.4 % (11.6-14.6); RBC Distribution Width SD 50.4 fl (35.1-43.9); Red Blood Count 4.36 M/mm3 (4.2-5.4); White Blood Count 3.8 K/mm3 (4.4-11.0)
[2024-08-25 11:56] LABS: International Normalized Ratio 1.2; Prothrombin Time (Protime)PT. 15.5 SECONDS (11.7-14.9)
[2024-08-25 12:10] LABS: Ammonia 18.6 umol/L (11-51)
[2024-08-25 12:42] LABS: Differential Indicated SCAN CRITERIA MET
[2024-08-25 12:49] LABS: Platelet Estimate MKD DEC (ADEQ)
[2024-08-25 13:09] LABS: Hemoglobin A1c 7.4 % (<=5.6)
[2024-08-25 13:29] LABS: Platelet Count 44 K/mm3 (150-450)
[2024-08-25 14:19] LABS: Cholesterol 195 mg/dL (<=200); Ferritin 76 ng/mL (22-378); High Density Lipoprotein 35 mg/dL; Low Density Lipoprotein Calc. 130 mg/dL; Triglycerides 152 mg/dL; Very Low Density Lipoprotein 30 mg/dL (5-40); Vitamin B12 763 pg/mL (180-914); Vitamin D,25 Hydroxy 35.9 ng/mL (30-100); cholesterol:hdl ratio screen 5.56
[2024-08-25 14:32] LABS: ALB/GLOB Ratio 0.8 RATIO (0.9-2.4); AST(SGOT) 36 U/L (<=31); Alanine Aminotransfer ALT/SGPT 38 U/L (<=34); Albumin, Serum 3.5 g/dL (3.4-4.8); Alkaline Phosphatase 175 U/L (35-104); Anion Gap 11 (5-15); BUN 27 mg/dL (4-19); BUN/Creat Ratio 33.4 RATIO (10-20); Bilirubin, Direct 0.39 mg/dL (0.00-0.30); Calcium,Total 8.8 mg/dL (7.6-11.0); Carbon Dioxide 21.3 mmol/L (21.0-32.0); Chloride 104 mmol/L (98-108); EST Glomerular Filtration Rate 81 (>60); Globulin 4.1 g/dL (2.2-4.2); Glucose 107 mg/dL (70-99); Iron 48 ug/dL (50-170); Iron Binding Capacity,Total 286 ug/dL (250-450); Iron Binding Capacity,Unsat 238 ug/dL (228-428); Potassium 4.1 mmol/L (3.3-5.1); Protein, Total 7.6 g/dL (5.9-8.4); Sodium Level 136 mmol/L (133-145); Total Bilirubin 0.79 mg/dL (0.00-1.30)
[2024-08-26 13:08] LABS: Anti-Mitochondrial AB 189.2 Units (0.0-20.0)
[2024-08-30 14:08] LABS: Albumin 3.1 g/dL (2.9-4.4); Alpha-1-Globulins 0.2 g/dL (0.0-0.4); Alpha-2-Globulins 0.7 g/dL (0.4-1.0); Anti-Smooth Muscle ABS 30 Units (0-19); Ceruloplasmin 25.5 mg/dL (19.0-39.0); Gamma Globulin 2.5 g/dL (0.4-1.8); HEPATITIS B SURFACE AG Negative (Negative); Hep C Antibodies Non Reactive (Non Reactive); Hepatitis A IgM Antibody Negative (Negative); Hepatitis B Core AB IgM Negative (Negative); Immunoglobulin A 76 mg/dL (87-352); Immunoglobulin E 2 IU/mL (6-495); Immunoglobulin G 2801 mg/dL (586-1602); Immunoglobulin M 98 mg/dL (26-217); PROEL- TOTAL PROTEIN 7.5 g/dL (6.0-8.5)
== END | disposition home or self-care (01) ==
PROVIDERS: PCP Family Medicine; Referring Provider Internal Medicine; Visit Provider Internal Medicine
DX: E11.9 Type 2 diabetes mellitus without complications (principal); K74.60 Unspecified cirrhosis of liver; M32.9 Systemic lupus erythematosus, unspecified; K75.4 Autoimmune hepatitis; R18.8 Other ascites; R00.0 Tachycardia, unspecified; I10 Essential (primary) hypertension; E55.9 Vitamin D deficiency, unspecified
CPT/HCPCS: 36415; 80053; 80061; 80074; 82140; 82248; 82306; 82390; 82607; 82728; 82784; 82785; 83036; 83516; 83540; 83550; 84165; 84443; 85025; 85610; 86140; 86334

== ENCOUNTER → 2024-09-06 | Outpatient (CLI) | payer MEDICARE, SELFPAY ==
--- NOTE | 2024-09-06 10:16 | US_ITS ---
PROCEDURE: ABD LIMITED W/ ELASTOGRAPHY REASON FOR EXAM: CIRRHOSIS WITH ASCITES, SPLENOMEGALY COMPARISON: November 22, 2023. TECHNIQUE: Right upper quadrant abdominal ultrasound. [employer] ElastQ Imaging shear wave elastography for non-invasive assessment of liver tissue stiffness. Joel EPIQ Elite. FINDINGS: LIVER: Size: Unremarkable Length: 13.3 cm Echotexture: Diffusely echogenic suggesting fatty infiltration Contour: Normal Lesions: None identified Elastography: EQI Med: 24 kPa EQI Med Alvin: 2.81 m/s IQR/Med: 23.5 %* GALLBLADDER: Solitary gallstone measuring 9 mm x 10 mm x 8 mm. This is in the neck of the gallbladder. Gallbladder wall thickening measure 6.5 mm. COMMON BILE DUCT: Normal measuring 5.3 mm. . PANCREAS: Normal Visualized portions of the right kidney are unremarkable. No right upper quadrant ascites. Splenomegaly. The spleen measures 16 cm x 7.3 cm 8.3 cm. US/ABD Limited w/ Elastography IMPRESSION: SEVERE HEPATIC FIBROSIS / CIRRHOSIS Solitary gallstone in the neck of the gallbladder with a thickened gallbladder wall. Splenomegaly. Reference Values: SRU <1.37 m/s (5.7kPa): No to mild fibrosis 1.37 m/s - 2.2 m/s: Moderate to severe fibrosis >2.2 m/s (15kPa): Significant fibrosis / cirrhosis METAVIR Score F2 or higher: 1.34 m/s (5.7kPa) F3 or higher: 1.55 m/s (7.3kPa) F4: 1.80 m/s (10kPa) * If the IQR/Med is >30%, the variance in the measurements is a large and the a ccuracy of the measurement may be in question. Reading Location: [id number]
[2024-09-06 13:12] LABS: Absolute Lymphocyte Count 0.27 X10^3/uL (0.83-4.51); Absolute Neutrophil Count 6.3 X10^3/uL (2.0-7.7); Basophil# 0.01 X10^3/uL; Basophil% 0.1 % (0-1); Differential Indicated SCAN CRITERIA MET; Eosinophil# 0.01 X10^3/uL; Eosinophils% 0.1 % (0-5); Hematocrit 30.8 % (37-47); Hemoglobin 9.3 g/dL (12.0-15.0); Lymphocyte # 0.27 X10^3/ul (0.83-4.51); Lymphocyte % 3.6 % (19-41); Mean Corp Hgb Conc 30.2 g/dL (32-36); Mean Corpuscular Hgb 26.3 pg (27.0-32.0); Mean Corpuscular Volume 87.3 fL (81-99); Mean Platelet Vol. 12.3 fl (6.2-12.0); Monocyte# 0.76 X10^3/uL; Monocyte% 10.2 % (0-10); NRBC Flagged by Analyzer 0.4 % (0-5); Neutrophil # 6.31 X10^3/uL (2.7-7.7); Neutrophil % 85.1 % (47-70); POSITIVE COUNT YES; POSITIVE DIFFERENTIAL YES; Platelet Count 55 K/mm3 (150-450); RBC Distribution Width CV 17.3 % (11.6-14.6); RBC Distribution Width SD 52.5 fl (35.1-43.9); Red Blood Count 3.53 M/mm3 (4.2-5.4); White Blood Count 7.4 K/mm3 (4.4-11.0)
[2024-09-06 13:24] LABS: International Normalized Ratio 1.3; Prothrombin Time (Protime)PT. 16.3 SECONDS (11.7-14.9)
[2024-09-06 14:12] LABS: AST(SGOT) 22 U/L (<=31); Alanine Aminotransfer ALT/SGPT 36 U/L (<=34); Albumin, Serum 3.5 g/dL (3.4-4.8); Alkaline Phosphatase 122 U/L (35-104); Anion Gap 11 (5-15); BUN 38 mg/dL (4-19); BUN/Creat Ratio 45.6 RATIO (10-20); Calcium,Total 8.8 mg/dL (7.6-11.0); Carbon Dioxide 22.8 mmol/L (21.0-32.0); Chloride 109 mmol/L (98-108); Creatinine, Serum 0.84 mg/dL (0.70-1.20); EST Glomerular Filtration Rate 76 (>60); Globulin 3.5 g/dL (2.2-4.2); Glucose 90 mg/dL (70-99); Potassium 3.3 mmol/L (3.3-5.1); Sodium Level 143 mmol/L (133-145); Total Bilirubin 0.75 mg/dL (0.00-1.30)
== END | disposition home or self-care (01) ==
LOC: US 09:59
PROVIDERS: PCP Family Medicine; Referring Provider Internal Medicine; Visit Provider Internal Medicine
DX: K75.4 Autoimmune hepatitis (principal); D61.818 Other pancytopenia; K76.6 Portal hypertension; K74.60 Unspecified cirrhosis of liver; M32.9 Systemic lupus erythematosus, unspecified; E11.9 Type 2 diabetes mellitus without complications; R18.8 Other ascites; R00.0 Tachycardia, unspecified; I10 Essential (primary) hypertension
CPT/HCPCS: 36415; 76705; 76981; 80053; 85025; 85610

== ENCOUNTER 2024-09-26 13:40 | Inpatient (IN) | payer MEDICARE, SELFPAY ==
[2024-09-26] VITALS (16 sets, daily range): BP systolic 77–109; BP diastolic 36–66; PULSE 96–110; RESP 14–24; TEMP 36.6–37.2; O2SAT 92–100; BMI 29.1; BMI 26.6
--- NOTE | 2024-09-26 14:15 | EDS_ITS ---
HPI History of Present Illness Chief Complaint: Weakness Informant: patient Onset/Context/Timing Onset: Days (10) Context: Sudden Onset Timing: Continuous Quality: Weakness Location: Generalized Worsened by: Nothing Relieved by: Rest Narrative Narrative: Patient presents with general weakness that has been constant for the past 10 days. Patient states that she saw Dr. Henry for gastroenterology consultation. Patient states he increased her steroids. Patient states that shortly after that, she started getting weak. Patient states that 10 days ago she had difficulty getting off of the couch. Patient states 2 weeks ago she had an episode of fevers and chills. Patient admits to some nausea but denies any vomiting. Patient admits to some arthralgias. Patient denies any diarrhea, melena, or hematochezia. [facility] Medical History History of immunosuppression therapy History of steroid therapy Post-menopausal Ulcer Hoarseness High cholesterol History of stress test Anemia Hypothyroidism Rheumatoid arthritis Osteoporosis GI bleed Hepatitis Former smoker Non-smoker Irregular heart beat Hypertension Home Medications ?Medication ?Instructions ?Recorded ?Last Taken ?Type calcium 500 mg (as 1 tab PO BIDCM supplement #6 0 tabs 09/23/18 Unknown Rx carbonate)-vitamin D3 5 mcg (200 unit) tablet spironolactone 25 mg tablet 25 mg PO BID diuretic #60 tabs 09/23/18 Unknown Rx carvedilol 6.25 mg tablet 6.25 mg PO BID blood pressur e 07/15/22 Unknown History ezetimibe 10 mg tablet 10 mg PO DAILY 07/15/22 Unkn own History glipizide 5 mg tablet 5 mg PO DAILY diabetes 07/15 Unknown History sucralfate 1 gram tablet 1 g PO 1HR_ACHS 30 days #90 tabs 11/29/22 Unknown Rx azathioprine 50 mg tablet 50 mg PO QDAY 1 month #30 ta bs 08/25/24 Unknown Rx ferrous sulfate 325 mg (65 mg 325 mg PO Q OTHER DAY chapin pplement 08/25/24 Unknown Rx iron) tablet #60 tabs pantoprazole 40 mg tablet,delayed 40 mg PO BID 30 days #60 tabs 08/25/24 Unknown Rx release (Protonix) ursodiol 500 mg tablet 500 mg PO Q8H 1 month #90 ta bs 08/28/24 Unknown Rx prednisone 10 mg tablet 10 mg PO DAILY 2 weeks #14 t abs 09/18/24 Unknown Rx prednisone 5 mg tablet 5 mg PO DAILY 1 month #30 ta bs 09/18/24 Unknown Rx Allergy/AdvReac Type Severity Reaction Status Date / Time Sulfa (Sulfonamide Allergy Severe Swelling Verified 09/26/24 13:41 Antibiotics) Family History Other Diabetes Heart disease Surgical History History of esophagogastroduodenoscopy (EGD) History of cataract surgery H/O section Social History Smoking Status: Former smoker ROS ROS ED Constitutional Constitutional ED: Reports chills, fever(s) and subjective Eyes Eyes: Denies blurry vision or change in vision ENT ENT ED: Denies rhinorrhea or sore throat Cardiovascular Cardiovascular: Denies chest pain or palpitations Respiratory/Chest Respiratory/Chest: Denies cough or dyspnea Gastrointestinal Gastrointestinal: Reports nausea; Denies abdominal pain, diarrhea, melena or vomiting Genitourinary Genitourinary ED: Denies dysuria or hematuria Musculoskeletal Musculoskeletal: Reports arthralgias Integumentary Denies abscess or rash Neurologic Neurologic: Reports weakness; Denies headache(s) Hematologic/Lymphatic Hematologic/Lymphatic: Reports easy bleeding and easy bruising Allergic/Immunologic Allergic/Immunologic ED: Denies mouth swelling or urticaria EXAM Physical Exam Const Vital Signs: 09/26/24 13:41 09/26/24 13:41 09/26/24 13:45 Temperature 98.9 F 98.9 F Temperature Source Oral Oral Pulse Rate 100 110 H 105 H Respiratory Rate 18 18 23 H Respiratory Pattern Blood Pressure 100/50 L 100/57 L 100/57 L Blood Pressure Mean 66 71 71 Pulse Ox 92 99 99 Oxygen Delivery Method Room Air Room Air 09/26/24 13:46 09/26/24 14:16 09/26/24 14:34 Temperature Temperature Source Pulse Rate 104 H Respiratory Rate Respiratory Pattern Normal Blood Pressure 81/47 L 77/56 L Blood Pressure Mean 58 63 Pulse Ox Oxygen Delivery Method 09/26/24 14:43 09/26/24 15:41 09/26/24 15:53 Temperature 98.3 F 98.3 F Temperature Source Oral Pulse Rate 100 100 100 Respiratory Rate 18 18 18 Respiratory Pattern Blood Pressure 94/60 86/59 L 86/59 L Blood Pressure Mean 71 68 68 Pulse Ox 99 96 96 Oxygen Delivery Method Room Air 09/26/24 16:00 09/26/24 16:48 09/26/24 17:03 Temperature 98.3 F Temperature Source Oral Pulse Rate 100 99 99 Respiratory Rate 18 20 H 18 Respiratory Pattern Blood Pressure 88/56 L 105/60 98/64 Blood Pressure Mean 66 75 75 Pulse Ox 96 100 98 Oxygen Delivery Method Room Air 09/26/24 17:03 09/26/24 17:18 09/26/24 17:33 Temperature 98.3 F 98.6 F 98.6 F Temperature Source Oral Oral Oral Pulse Rate 99 98 99 Respiratory Rate 18 21 H 18 Respiratory Pattern Blood Pressure 98/64 100/55 L 97/62 Blood Pressure Mean 75 70 73 Pulse Ox 99 98 98 Oxygen Delivery Method Room Air Room Air Room Air 09/26/24 17:48 Temperature 98.6 F Temperature Source Oral Pulse Rate 99 Respiratory Rate 24 H Respiratory Pattern Blood Pressure 109/66 Blood Pressure Mean 80 Pulse Ox 100 Oxygen Delivery Method Room Air Positive well nourished and well developed Constitutional Narrative: BMI is 29.1 General Appearance ED: well developed and NAD HEENT Reports moist mucous membranes Neck supple and no JVD Resp normal respiratory effort and clear to auscultation bilaterally Cardio regular rate and regular rhythm GI non-tender and non-distended Palpation: soft Extremity Extremity Narrative: There is 3+ edema of the lower extremities bilaterally. There is some bruising of the right foot and ankle area. There is no deformity noted. There is good range of motion. General Extremety ED: Yes edema; Negative for tenderness General Extremity: edema Neuro oriented x3, CN's II-XII intact bilaterally and no sensory deficits noted Sensorium / Orientation: alert Motor Exam: general weakness Psych mental status grossly normal MDM MDM MDM Narrative Medical decision making narrative: Differential diagnosis includes but is not limited to ascites, gastrointestinal bleeding, urinary tract infection, dehydration, electrolyte abnormality, anemia, cardiac dysrhythmia, cardiac ischemia, and debility. EKG will be obtained to assess for cardiac dysrhythmia and cardiac ischemia. CT scan of the abdomen and pelvis will be obtained to assess for ascites, bowel obstruction, and perforation. CBC will be obtained to assess for leukocytosis and anemia. Comprehensive metabolic profile will be obtained to assess for hepatic function, renal function, and electrolyte abnormality. Lipase will be obtained to assess for pancreatitis. Urinalysis will be obtained to assess for urinary tract infection. PT with INR and PTT will be obtained to assess for coagulopathy. History & Record Review Additional record(s) reviewed:: Prior outpatient record, Prior ED visit and Prior labs Lab Data Attestation: I reviewed the patient's lab results. Lab results narrative: CBC was reviewed. White blood cell count was normal at 6.8. There is a mild anemia with a hemoglobin of 8.6 and hematocrit of 28.4. Comprehensive metabolic profile was reviewed. BUN was slightly elevated at 32. Sodium is slightly low at 129. CO2 was slightly low at 19.5. Glucose was elevated at 170. The remainder is within normal limits. Serum lactate was reviewed and was slightly elevated at 2.1. BNP was reviewed and was elevated at 1345. Lipase was reviewed and was elevated at 139. PT with INR and PTT were reviewed. Pro time was 17.0 and INR is 1.4. PTT was normal at 25.2. Urinalysis was reviewed. There is no evidence of urinary tract infection or hematuria. Labs: Laboratory Results - last 24 hr 09/26/24 09/26/24 09/26/24 13:50 13:58 15:20 WBC 6.8 RBC 3.48 L Hgb 8.6 L Hct 28.4 L MCV 81.6 MCH 24.7 L MCHC 30.3 L RDW Std Deviation 48.9 H RDW Coeff of Joel 16.4 H Plt Count 42 L* Immature Gran % (Auto) 1.800 H Neut % (Auto) 93.0 H Lymph % (Auto) 1.5 L [place] % (Auto) 3.7 Eos % (Auto) 0.0 Baso % (Auto) 0.0 Absolute Neuts (auto) 6.3 Absolute Lymphs (auto) 0.10 L Nucleated RBC % 0 PT 17.0 H INR 1.4 APTT 25.2 Sodium 129 L Potassium 4.8 Chloride 98 Carbon Dioxide 19.5 L Anion Gap 11 BUN 32 H Creatinine 0.77 Estim Creat Clear Calc 55.87 Est GFR (MDRD) Non-Af 84 BUN/Creatinine Ratio 41.3 H Glucose 170 H Lactic Acid 2.1 H* Calcium 8.7 Total Bilirubin 1.28 AST 24 ALT 35 Alkaline Phosphatase 99 NT pro BNP II 1345 H Total Protein 5.9 Albumin 2.8 L Globulin 3.1 Albumin/Globulin Ratio 0.9 Lipase 139 H Urine Color Yellow Urine Clarity Clear Urine pH 6.0 Ur Specific [place] 1.015 Urine Protein 15 H Urine Glucose (UA) 250 H Urine Ketones Negative Urine Occult Blood Negative Urine Nitrite Negative Urine Bilirubin Negative Urine Urobilinogen 1 H Ur Leukocyte Esterase Negative Urine RBC 0 SEEN Urine WBC 0 SEEN Ur Squamous Epith Cells 0 SEEN Urine Bacteria 0 SEEN Urine Mucus 0 SEEN Radiography Chest X-Ray - ED: 1 View, Read by ED Physician, Read by Radiologist and No Acute Disease Diagnostic Testing: Clinical Impression(s) from Imaging Studies Abdomen/Pelvis CT 09/26/24 14:34 IMPRESSION: 1. Extensive nonocclusive thrombus in the portal venous system. 2. Hepatic cirrhosis. 3. Moderate splenomegaly. 4. Cholelithiasis. 5. Diffuse osteopenia of the visualized spine with numerous compression fractures without retropulsed fragments. 6. There is a large amount of ascites. Note: Findings were called to Dr. Escobar in the [facility] emergency department on the afternoon of 09/26/2024 at 16:50 p.m. Reading Location: [place] [id number] Chest X-Ray 09/26/24 14:34 IMPRESSION: Possible bibasilar atelectasis. Reading Location: [place] [address] Portable 1 view chest x-ray was obtained. On my independent interpretation, lung barrios show bibasilar atelectasis. There is normal cardiac silhouette. Bony thorax is normal. There is no acute process noted. Radiologist also interpreted the x-ray and agrees. CT scan of the abdomen and pelvis also obtained. There is cirrhosis with diffuse ascites. There is extensive nonocclusive thrombus in the portal venous system. There is splenomegaly. There is cholelithiasis. EKG Initial EKG: Attestation: I personally reviewed and interpreted this EKG as follows: Interpretation: Sinus Rhythm (98) and No Acute Injury Pattern Comments: EKG was obtained. On my independent interpretation, it showed a normal sinus rhythm with occasional PACs with a rate of 98. SD interval, QRS interval, and QTc intervals were all normal. [place] was normal. There is low voltage QRS. There is poor R wave progression. There are no acute ST or T wave changes. Prior EKG tracings: available for review Prior: Unchanged (09/22/2018) Treatment and Re-Evaluation :: Patient was given IV fluids. Patient was advised of her findings. Patient blood pressure improved to 105/60. Patient was advised of the need for hospitalization. Patient is agreeable with this. Case was discussed with gastroenterology nurse practitioner. She had no further recommendations. Case was discussed with the hospitalist. He will admit the patient to his service. Patient and family understood and were agreeable with the plan. All questions were answered. Discharge Plan Dx/Rx/DC Orders Clinical Impression: General weakness, Cirrhosis, Diabetes mellitus, Peripheral edema, Hypotension Disposition Disposition: Acute Care [facility] Discharge Date/Time: 09/26/24 18:46
--- NOTE | 2024-09-26 14:34 | CT_ITS ---
PROCEDURE: There is no mesenteric, retroperitoneal or pelvic lymphadenopathy. 09/26/2024 REASON FOR EXAM: ABDOMINAL PAIN TECHNIQUE: ABDOMEN/PELVIS W IV CONT ONLY Coronal and Sagittal reconstruction series were provided. CONTRAST: Isovue 370 VOLUME: 99 mL One or more dose reduction techniques were used (e.g., Automated exposure control, adjustment of the mA and/or kV according to patient size, use of iterative reconstruction technique. RADIATION DOSE SUMMARY: CTDlvol: 35.50 mGy DLP: 759.60 mGycm COMPARISON: None. FINDINGS: Lung bases: There is a small left pleural effusion with left basilar atelectasis. The lung bases are otherwise clear. The heart size is normal. There is no pericardial effusion. There is minimal calcific vascular disease of the visualized thoracic aorta in the coronary arteries. Liver: The liver is cirrhotic. There is nonocclusive thrombus in the main portal vein, the left portal vein, the superior mesenteric vein, in the splenic vein Gallbladder: There are multiple gallstones. Spleen: There is moderate splenomegaly with the spleen measuring 17.5 cm in axial dimension. There is a small defect in the lower pole of the spleen, probably a scar. Pancreas: Normal. Adrenals: Normal. Kidneys: There are small left renal cortical cysts. The right kidney is unremarkable. Bladder: Normal. Reproductive Organs: The uterus is unremarkable. The ovaries are not identified. There is no inguinal lymphadenopathy. Bowel: There is a small hiatal hernia. The gastrointestinal tract is otherwise unremarkable. Appendix: Normal. Lymph nodes: There is no mesenteric, retroperitoneal or pelvic lymphadenopathy. Vasculature: There is calcific vascular disease of the abdominal aorta. The inferior vena cava is unremarkable. Extensive nonocclusive thrombus is noted in the portal venous system. Peritoneum / Retroperitoneum: There is a large amount of ascites. Bones: There is diffuse osteopenia and there is central compression of numerous thoracic and lumbar vertebral bodies. There are no significant retropulsed fragments. CT/Abdomen/Pelvis W IV Cont ONLY IMPRESSION: 1. Extensive nonocclusive thrombus in the portal venous system. 2. Hepatic cirrhosis. 3. Moderate splenomegaly. 4. Cholelithiasis. 5. Diffuse osteopenia of the visualized spine with numerous compression fractu res without retropulsed fragments. 6. There is a large amount of ascites. Note: Findings were called to Dr. Escobar in the [facility] emergenc y department on the afternoon of 09/26/2024 at 16:50 p.m. Reading Location: [place] [id number]
--- NOTE | 2024-09-26 14:34 | EKG12_ITS ---
Test Reason : pre op Blood Pressure : */* mmHG Vent. Rate : 87 BPM Atrial Rate : 87 BPM P-R Int : 148 ms QRS Dur : 68 ms QT Int : 364 ms P-R-T Axes : 48 -23 -6 degrees QTcB Int : 438 ms Normal sinus rhythm with sinus arrhythmia Low voltage QRS Inferior infarct , age undetermined Possible Anterolateral infarct (cited on or before 21-Sep-2018) Abnormal ECG Confirmed by Eduar Nguyen ([id number]), clinical editor GINA PUENTES ([id number]) on 09/27/2024 11:26:51 AM Referred By: Confirmed By: Eduar Nguyen
--- NOTE | 2024-09-26 14:34 | RAD_ITS ---
PROCEDURE: CHEST 1 VIEW (PORTABLE) 09/26/2024 REASON FOR EXAM: WEAKNESS TECHNIQUE: Frontal view of the chest. COMPARISON: Portable chest, 11/27/2022. FINDINGS: The image was obtained during a poor inspiratory effort. There may be bibasilar atelectasis. The heart size is normal. RAD/Chest 1 View (Portable) IMPRESSION: Possible bibasilar atelectasis. Reading Location: [place] [id number]
[2024-09-26] MEDS: 0.9% Normal Saline (1000mL) 1,000 ML 1000 ML IV ×2 (14:39→15:49)
[2024-09-26 15:06] LABS: Hematocrit 28.4 % (37-47); Hemoglobin 8.6 g/dL (12.0-15.0); Immature Granulocytes Count 0.120 X10^3/uL (0.0-0.0); Mean Corp Hgb Conc 30.3 g/dL (32-36); Mean Corpuscular Volume 81.6 fL (81-99); NRBC Flagged by Analyzer 0 % (0-5); POSITIVE COUNT YES; POSITIVE DIFFERENTIAL YES; Platelet Count 42 K/mm3 (150-450); RBC Distribution Width CV 16.4 % (11.6-14.6); RBC Distribution Width SD 48.9 fl (35.1-43.9); Red Blood Count 3.48 M/mm3 (4.2-5.4); White Blood Count 6.8 K/mm3 (4.4-11.0)
[2024-09-26 15:18] LABS: Prothrombin Time (Protime)PT. 17.0 SECONDS (11.7-14.9)
[2024-09-26 15:19] LABS: Partial Thromboplast Time 25.2 Seconds (24.1-36.2)
[2024-09-26 15:32] LABS: Mucous, Urine 0 SEEN /hpf (<or=2+); Red Blood Cells-Urine 0 SEEN /hpf (0-5); Squamous Epithelial Cells - UA 0 SEEN /hpf (5-10)
[2024-09-26 15:34] LABS: Color, Urine Yellow (Yellow); Glucose, Dipstick 250 mg/dl (Normal); Ketone-Dipstick Negative (Negative); Leukocyte Esterase-Dipstick Negative /ul (Negative); Nitrite-Dipstick Negative (Negative); Occult Blood-Urine Negative /ul (Negative); Protein-Dipstick 15 mg/dl (Negative); Specific Gravity, Urine 1.015 (1.002-1.030); Urine Bilirubin Dipstick Negative (Negative)
[2024-09-26 15:40] LABS: AST(SGOT) 24 U/L (<=31); Alanine Aminotransfer ALT/SGPT 35 U/L (<=34); Albumin, Serum 2.8 g/dL (3.4-4.8); Alkaline Phosphatase 99 U/L (35-104); Anion Gap 11 (5-15); BUN 32 mg/dL (4-19); BUN/Creat Ratio 41.3 RATIO (10-20); Calcium,Total 8.7 mg/dL (7.6-11.0); Carbon Dioxide 19.5 mmol/L (21.0-32.0); Chloride 98 mmol/L (98-108); Estimated Creatinine Clearance 55.87 ml/min (50-250); Globulin 3.1 g/dL (2.2-4.2); Glucose 170 mg/dL (70-99); Lipase 139 U/L (13-75); Potassium 4.8 mmol/L (3.3-5.1); Pro- Brain NATRIURETIC PEPTIDE 1345 pg/mL (<=900)
--- NOTE | 2024-09-26 17:53 | PCM.HP.STD ---
HPI - General General Date of Admission: 09/26/24 Date of Service: 09/26/24 Chief Complaint: Worsening weakness with abdominal distention HPI Narrative JAKY PRESTON, is a 69 F who presented to [facility] ED on 09/26/2024 with worsening weakness with abdominal distention. Patient lives at home with her . Medical history significant for cirrhosis secondary to autoimmune hepatitis. Patient saw Dr. Henry in the office on 08/25 for this, see office note for further details. In short, patient previously followed with Dr. 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 She had an upper scope done in June and was found to have esophageal varices that were banded. Patient was unhappy with her care there so she transitioned her care to our GI group in August. Patient had been off her azathioprine for 2 to 3 years and was on only low-dose prednisone. Given concern for poorly controlled autoimmune hepatitis leading to worsening cirrhosis, patient was started on prednisone 40 mg daily and reinitiated on azathioprine by Dr. Henry. Notes that she began to feel weak around 15 September and the weakness has become progressively worse since that time. She has also noted worsening abdominal distention over the past few weeks. In the ED her BP was noted to be in the 80s over 40s with tachycardia to around 100. Hemoglobin 8.6, down from 9.3 on 09/06 and 11.4 on 08/25. Lactate 2.1. INR 1.4, similar to previous. Creatinine stable at baseline 0.7. CT abdomen pelvis showed a large amount of ascites, cirrhosis and an extensive nonocclusive thrombus in the portal venous system. Case was discussed with Dr. Cintron who recommended admission here for further management. Hospitalist was then contacted for admission. I saw the patient at bedside in the ED, daughter was present. Patient was fatigued appearing but otherwise sitting back comfortably in bed in no acute distress. She reported feeling generalized weakness and abdominal discomfort with poor appetite. Has been having bowel movements about every 2 days. She was taking an iron supplement for a few weeks after seeing Dr. Henry and this led to abdominal discomfort so she discontinued this. Noticed some dark stools while on the iron supplement but does not think she has had dark stool since then. Denies any epigastric pain. Denies any lightheadedness or dizziness. No other acute concerns currently. Will be admitted for further management. [facility] Medical History History of immunosuppression therapy History of steroid therapy Post-menopausal Ulcer Hoarseness High cholesterol History of stress test Anemia Hypothyroidism Rheumatoid arthritis Osteoporosis GI bleed Hepatitis Former smoker Non-smoker Irregular heart beat Hypertension Home Medications ?Medication ?Instructions ?Recorded ?Last Taken ?Type calcium 500 mg (as 1 tab PO BIDCM supplement #60 tabs 09/23/18 Unknown Rx carbonate)-vitamin D3 5 mcg (200 unit) tablet spironolactone 25 mg tablet 25 mg PO BID diuretic #60 tabs 09/23/18 Unknown Rx carvedilol 6.25 mg tablet 6.25 mg PO BID blood pressure 07/15/22 Unknown History ezetimibe 10 mg tablet 10 mg PO DAILY 07/15/22 Unknown History glipizide 5 mg tablet 5 mg PO DAILY diabetes 07/15/22 Unknown History sucralfate 1 gram tablet 1 g PO 1HR_ACHS 30 days #90 tabs 11/29/22 Unknown Rx azathioprine 50 mg tablet 50 mg PO QDAY 1 month #30 tabs 08/25/24 Unknown Rx ferrous sulfate 325 mg (65 mg 325 mg PO Q OTHER DAY supplement 08/25/24 Unknown Rx iron) tablet #60 tabs pantoprazole 40 mg tablet,delayed 40 mg PO BID 30 days #60 tabs 08/25/24 Unknown Rx release (Protonix) ursodiol 500 mg tablet 500 mg PO Q8H 1 month #90 tabs 08/28/24 Unknown Rx prednisone 10 mg tablet 10 mg PO DAILY 2 weeks #14 tabs 09/18/24 Unknown Rx prednisone 5 mg tablet 5 mg PO DAILY 1 month #30 tabs 09/18/24 Unknown Rx Allergy/AdvReac Type Severity Reaction Status Date / Time Sulfa (Sulfonamide Allergy Severe Swelling Verified 09/26/24 13:41 Antibiotics) Family History Other Diabetes Heart disease Surgical History History of esophagogastroduodenoscopy (EGD) History of cataract surgery H/O section Social History Smoking Status: Former smoker ROS Constitutional Constitutional: Reports fatigue, malaise and weakness; Denies chills or fever(s) Eyes Eyes: Denies change in vision Cardiovascular Cardiovascular: Reports dyspnea on exertion and edema; Denies chest pain, lightheadedness or orthopnea Respiratory/Chest Respiratory/Chest: Denies cough, shortness of breath at rest, shortness of breath with exertion or wheezing Gastrointestinal Gastrointestinal: Reports abdominal pain, constipation and nausea; Denies diarrhea or vomiting Genitourinary Genitourinary: Denies dysuria Musculoskeletal Musculoskeletal: Denies arthralgias or myalgias Neurologic Neurologic: Denies dizziness, focal weakness or headache(s) Vital Signs Vital Signs Vital Signs: 09/26/24 13:41 09/26/24 13:41 09/26/24 13:45 Temperature 98.9 F 98.9 F Temperature Source Oral Oral Pulse Rate 100 110 H 105 H Respiratory Rate 18 18 23 H Respiratory Pattern Blood Pressure 100/50 L 100/57 L 100/57 L Blood Pressure Mean 66 71 71 Pulse Ox 92 99 99 Oxygen Delivery Method Room Air Room Air 09/26/24 13:46 09/26/24 14:16 09/26/24 14:34 Temperature Temperature Source Pulse Rate 104 H Respiratory Rate Respiratory Pattern Normal Blood Pressure 81/47 L 77/56 L Blood Pressure Mean 58 63 Pulse Ox Oxygen Delivery Method 09/26/24 14:43 09/26/24 15:41 09/26/24 15:53 Temperature 98.3 F 98.3 F Temperature Source Oral Pulse Rate 100 100 100 Respiratory Rate 18 18 18 Respiratory Pattern Blood Pressure 94/60 86/59 L 86/59 L Blood Pressure Mean 71 68 68 Pulse Ox 99 96 96 Oxygen Delivery Method Room Air 09/26/24 16:00 09/26/24 16:48 09/26/24 17:03 Temperature 98.3 F Temperature Source Oral Pulse Rate 100 99 99 Respiratory Rate 18 20 H 18 Respiratory Pattern Blood Pressure 88/56 L 105/60 98/64 Blood Pressure Mean 66 75 75 Pulse Ox 96 100 98 Oxygen Delivery Method Room Air 09/26/24 17:03 09/26/24 17:18 09/26/24 17:33 Temperature 98.3 F 98.6 F 98.6 F Temperature Source Oral Oral Oral Pulse Rate 99 98 99 Respiratory Rate 18 21 H 18 Respiratory Pattern Blood Pressure 98/64 100/55 L 97/62 Blood Pressure Mean 75 70 73 Pulse Ox 99 98 98 Oxygen Delivery Method Room Air Room Air Room Air Weight Weight: 63.2 kg Body Mass Index (BMI) 29.1 Physical Exam Const alert, oriented x3, no apparent distress and average body habitus Constitutional Narrative: Elderly female, fatigued appearing, otherwise laying back fairly comfortably in bed, conversing normally, in no acute distress. General Appearance: cooperative and comfortable HEENT normocephalic, head/scalp atraumatic, hearing grossly normal bilaterally, nasal mucous membranes and turbinates normal and moist oral mucous membranes Eyes PERRL, EOMs intact bilaterally and conjunctivae normal Neck full ROM Chest inspection of chest normal Resp normal respiratory effort, normal air movement, no use of accessory muscles and clear to auscultation bilaterally Cardio no murmurs and peripheral pulses 2+ throughout Cardio Narrative: Tachycardic, regular rhythm. GI GI Narrative: Abdomen distended with fluid wave noted. Otherwise soft and nontender to palpation. Back/Spine normal ROM Extremity full ROM Extremity Narrative: +1-2 lower extremity pitting edema noted. Skin no rashes or lesions noted Psych mental status grossly normal Results Lab / Micro Data 09/26/24 13:50 09/26/24 13:50 Labs: Laboratory Results - last 24 hr 09/26/24 13:50: WBC 6.8, RBC 3.48 L, Hgb 8.6 L, Hct 28.4 L, MCV 81.6, MCH 24.7 L, MCHC 30.3 L, RDW Std Deviation 48.9 H, RDW Coeff of Joel 16.4 H, Plt Count 42 L*, Immature Gran % (Auto) 1.800 H, Neut % (Auto) 93.0 H, Lymph % (Auto) 1.5 L, Laporte % (Auto) 3.7, Eos % (Auto) 0.0, Baso % (Auto) 0.0, Absolute Neuts (auto) 6.3, Absolute Lymphs (auto) 0.10 L, Nucleated RBC % 0, PT 17.0 H, INR 1.4, APTT 25.2, Sodium 129 L, Potassium 4.8, Chloride 98, Carbon Dioxide 19.5 L, Anion Gap 11, BUN 32 H, Creatinine 0.77, Estim Creat Clear Calc 55.87, Est GFR (MDRD) Non-Af 84, BUN/Creatinine Ratio 41.3 H, Glucose 170 H, Calcium 8.7, Total Bilirubin 1.28, AST 24, ALT 35, Alkaline Phosphatase 99, NT pro BNP II 1345 H, Total Protein 5.9, Albumin 2.8 L, Globulin 3.1, Albumin/Globulin Ratio 0.9, Lipase 139 H 09/26/24 13:58: Lactic Acid 2.1 H* 09/26/24 15:20: Urine Color Yellow, Urine Clarity Clear, Urine pH 6.0, Ur Specific Lydia 1.015, Urine Protein 15 H, Urine Glucose (UA) 250 H, Urine Ketones Negative, Urine Occult Blood Negative, Urine Nitrite Negative, Urine Bilirubin Negative, Urine Urobilinogen 1 H, Ur Leukocyte Esterase Negative, Urine RBC 0 SEEN, Urine WBC 0 SEEN, Ur Squamous Epith Cells 0 SEEN, Urine Bacteria 0 SEEN, Urine Mucus 0 SEEN Imaging Radiology Impression Abdomen/Pelvis CT 09/26/24 14:34 IMPRESSION: 1. Extensive nonocclusive thrombus in the portal venous system. 2. Hepatic cirrhosis. 3. Moderate splenomegaly. 4. Cholelithiasis. 5. Diffuse osteopenia of the visualized spine with numerous compression fractures without retropulsed fragments. 6. There is a large amount of ascites. Note: Findings were called to Dr. Escobar in the [facility] emergency department on the afternoon of 09/26/2024 at 16:50 p.m. Reading Location: [place] [id number] Chest X-Ray 09/26/24 14:34 IMPRESSION: Possible bibasilar atelectasis. Reading Location: [place] [id number] Assessment & Plan Assessment/Plan (1) Decompensated cirrhosis: (2) Ascites: PLAN: Plan Patient is a 69-year-old female who presented [facility] ED on 09/26/2024 with worsening weakness and abdominal distention. 1. Decompensated cirrhosis with ascites and borderline hypotension; acute on chronic anemia with known esophageal varices with recent banding; history of autoimmune hepatitis ? Admit under inpatient status to PCU. GI consulted. 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 Now presents with apparent new onset ascites concerning for decompensated cirrhosis. Hemoglobin downtrending as well concerning for slow upper GI bleed. Notably had EGD with banding of esophageal varices done in late June with Dr. Soni. Orders for ultrasound-guided diagnostic and therapeutic paracentesis ordered. Will keep n.p.o. at midnight with plan for EGD tomorrow. Will initiate midodrine for hypotension, IV ceftriaxone for concern for SBP and variceal bleed, and IV PPI twice daily. Monitor daily labs. Appreciate further GI recommendations. Okay to continue home azathioprine and low-dose prednisone for now. Continue home ursodiol and sucralfate. Also continue home spironolactone 25 mg twice daily and initiate Lasix 20 mg daily. 2. Acute on chronic debility ? PT/OT/case management consulted. Patient lives at home with , typically has fairly good functional status at baseline. Suspect weakness is primarily due to decompensated cirrhosis as above. Appreciate therapy recommendations. 3. Hypertension/hyperlipidemia ? Will continue home Coreg at reduced dose of 3.125 mg twice daily. Continue home Zetia. 4. Hyponatremia ? Sodium 129 on admit, baseline 136-140. Suspect due to decompensated cirrhosis above. Given 2 L of normal saline on admit. Follow-up a.m. sodium level. 5. Type 2 diabetes mellitus ? Glucose 170 on admit. Last A1c 7.4% on 08/25. Will treat with sliding scale insulin with meals for now, adjust as needed. Hold home glipizide. DVT prophylaxis: SCDs CODE STATUS: Full code, verified Expected disposition: TBD Total clinical time spent by myself addressing the patient's medical issues, reviewing all the data, and collaborating with patient's care team: 75 minutes. Charges/Coding Visit Charges Inpatient E&M: 54802 Init Hosp L3
[2024-09-26 18:56] LABS: Reflex Lactate? Y
[2024-09-26] MEDS: Pantoprazole Sodium 40 MG in 0.9% Normal Saline (100mL MB+) 100 ML 330 MG IV (19:58)
--- OUTSIDE RECORDS SUMMARY | 2024-09-26 22:03 | XMS RPT_ITS | CCD ---
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 Melissa Attending Unavailable Zeke Chapman Primary Care Unavailable Zeke Chapman Referring Unavailable Gholam, Dr. Melissa Attending Zeke Joyce Primary Care Unavailable Dr. Zeke Chapman Primary Care Provider [phone] Dr. Abdiel Coe Attending Provider [phone] Eduar Woo Referring Provider [phone] Dr. Zeke Chapman Referring Provider [phone] AMISHA Dexter Attending Provider TARA MENSAH, TOYIN Navas Attending Nilesh CHAPMAN MD, DR ZEKE Denton Primary Care Unique Gonzales MD, DR ARTEAGA Attending Karl CHAPMAN MD, DR ZEKE Denton Primary Care Unavailab luis angel YANCEY MD, DR ARTEAGA Attending Karl CHAPMAN MD, DR ZEKE Denton Primary Care Unavailab luis angel Chapman, Dr. Sow Primary Care Provider Dr. Zeke Chapman Referring Provider AMISHA Dexter Attending Provider Dr. Abdiel Coe Attending Provider [phone] AMISHA Dexter Referring Provider AMISHA Campos Attending Provider [phone] AMISHA Campos Referring Provider [phone] Ronnie Jeff Emergency Provider Dr. Tomer Lew Admit Provider Vipin, Dr. Jeff Attending Provider Vipin, Dr. Jeff Other Provider Dr. Pacheco Shrestha Other Provider Dr. Chris Chatterjee Attending Provider Dr. Chris Chatterjee Other Provider Dr. Pacheco Shrestha Attending Provider Dr. Zeke Chapman Primary Care Provider Dr. Ronnie Jeff Emergency Provider Vipin, Dr. Jeff Admit Provider Vipin, Dr. Jeff Attending Provider Vipin, Dr. Jeff Other Provider Dr. Pacheco Shrestha Other Provider Dr. Chris Chatterjee Attending Provider Dr. Chris Chatterjee Other Provider Dr. Pacheco Shrestha Attending Provider Dr. Chris Chatterjee Referring Provider Dr. Zeke Chapman Referring Provider Dr. Zeke Chapman Primary Care Provider Dr. Pacheco Shrestha Attending Provider Zeke Chapman MD Primary Care Provider SARITHA COLES Primary Care Unavailable SARITHA COLES Primary Care Unavailable Zeke Chapman MD Primary Care Provider [phone] JEFFRY ROYAL Referring Unavailable ZEKE CHAPMAN Primary Care Unavailable JEFFRY ROYAL Attending Unavailable SELF Referring Unavailable ZEKE CHAPMAN Primary Care Unavailable DARRELL COVARRUBIAS MD Primary Care Physician Unavailab le Oberhauser DO, Saritha L Primary Care Provider Oberhauser DO, Saritha L Unavailable Satish MENSAH, Alonzo Primary Care Provider [phone] Alonzo Covarrubias MD Attending Provider Satish MENSAH, Alonzo Referring Provider TOYIN PACHECO MD Attending Provider TOYIN PACHECO MD Referring Provider OBERHAUSER, SARITHA L Attending Unavailable OBERHAUSER, SARITHA L Referring Unavailable OBERHAUSER, SARITHA L Primary Care Unavailable Satish MENSAH, Alonzo Other Provider Bc MENSAH, Dr. Arteaga Attending Provider Bc MENSAH, Dr. Arteaga Referring Provider SATISH MENSAH, DARRELL Primary Care Unavailable BC MENSAH, DR ARTEAGA Attending Unavailpage COVARRUBIAS MD, DARRELL Primary Care Unavailable BC MENSAH, DR ARTEAGA Attending Unavailpage YANCEY MD, DR ARTEGAA Attending Unavailpage COVARRUBIAS MD, DARRELL Primary Care Unavailable Satish MENSAH, Alonzo Primary Care Provider Alonzo Covarrubias MD Referring Provider [phone] Carl MENSAH, Dr. Cruz Attending Provider Carl MENSAH, Dr. Cruz Referring Provider MICHAEL MENSAH, DR ALDRIDGE Attending Unavailab luis angel COVARRUBIAS MD, DARRELL Primary Care Unavailable Satish, Chalon Primary Care Unavailable Anthony Henry Referring Unavailable Anthony Henry Attending Unavailable Chandler Yancey Referring Unavailable Chandler Yancey Attending Unavailable Oberhauser, Saritha Primary Care Unavailable Satish, Chalon Referring Unavailable Satish, Chalon Attending Unavailable Satish, Chalon Primary Care Unavailable TOYIN PACHECO Referring Unavailable TOYIN PACHECO Attending Unavailable Satish, Chalon Primary Care Unavailable Satish, Chalon Consulting Unavailable Satish, Chalon Primary Care Unavailable Chandler Yancey Attending Unavailable Chandler Yancey Referring Unavailable TOYIN PACHECO Referring Unavailable TARA, RALLIS Attending Unavailable Oberhauser, Saritha Primary Care Unavailable Oberhauser, Saritha Primary Care Unavailable Jabour, Vincent Attending Unavailable Jabour, Vincent Referring Unavailable Alfredo, Saritha Attending Unavailable Oberhauser, Saritha Primary Care Unavailable Oberhauser, Saritha Referring Unavailable Satish, Chalon Primary Care Unavailable Satish, Chalon Referring Unavailable Carl, Anthony Attending Unavailable Oberhauser, Saritha Primary Care Unavailable Jabour, Vincent Attending Unavailable Jabour, Vincent Referring Unavailable Oberhauser, Saritha Primary Care Unavailable Jabour, Vincent Attending Unavailable Jabour, Vincent Referring Unavailable Oberhauser, Saritha Primary Care Unavailable Jabour, Vincent Attending Unavailable Jabour, Vincent Referring Unavailable TARA, RALLIS Referring Unavailable TARA, ROES Attending Unavailable Oberhauser, Saritha Primary Care Unavailable Satish, Chalon Primary Care Unavailable Carl, Anthony Referring Unavailable Carl, Anthony Attending Unavailable Dr. Abdiel Vines DO Emergency Provider Dr. Dileep Gipson DO Admit Provider [phone] Dr. Dileep Gipson DO Attending Provider Allergies Allergy Classification Reported Allergen(s) Allergy Type Date of Onset Reaction(s) Facility Sulfonamides (antibiotic) (1 source) Sulfonamides (Antibiotic); Translations: [Sulfa Drugs] Drug [facility]ergy [facility] Work Phone: (5 sources) Sulfonamides (Antibiotic); Translations: [Sulfa Drugs] Allergy to drug (finding) Unknown [facility] [address] Work Phone: (20 sources) Sulfonamides (Antibiotic); Translations: [SULFA (SULFONAMIDE ANTIBIOTICS)] Allergy to substance 9 [facility] (3 sources) Sulfamethoxazole / Trimethoprim; Translations: [SULFAMETHOXAZOLE-TR IMETHOPRIM] Drug Allergy 9 [facility] Work Phone: (2 sources) Sulfonamides (Antibiotic); Translations: [sulfa drugs] Drug allergy [facility] (5 sources) levoFLOXacin; Translations: [LEVOFLOXACIN] Drug Allergy 4 Swelling [facility] (3 sources) Sulfonamide; Translations: [sulfa drugs] Drug allergy [facility] Medications Current Medications Medication Drug Class(es) Dates Sig (Normalized) Sig (Original) calcium carbonate 1250 mg / cholecalciferol 200 unt oral tablet (20 sources) Vitamin D Start: 09-23-2018 take 1 tablet by mouth twice daily at mealtime Calcium Carbonate-Vitamin D3 Active 1 TABLET PO TWICE DAILY WITH MEALS 60 September 23, 2018 12:00am Start: 09-19-2008 Calcium Carbon ate-Vitamin D3 1 TABLET tablet Active 1 {tbl} PO TWICE DAILY WITH MEALS 60 0 September 23, 2018 12:00am supplement Comment on above: Take one(1) tablet t wice daily. carvedilol 6.25 mg oral tablet (20 sources) alpha-Adrenergic Dioni, beta-Adrenergic Dioni Start: 03-20-2022 take 1 tablet by mouth twice daily at mealtime Carvedilol 6.25 mg tablet Active 6.25 mg PO TWICE A DAY July 15, 2022 12:00am blood pressure must administer with a meal/food Carvedilol 6.25 MG Oral Tablet Quantity: 0 Refills: 0 Ordered: 30-Mar-2022 DO Active cholecalciferol 0.05 mg oral tablet (1 source) Vitamin D take 1 tablet by mouth once daily cholecalciferol (VITAMIN D-3) 50 mcg (2,000 unit) tablet Take 2,000 Units by mouth once daily. Active ezetimibe 10 mg oral tablet (20 sources) Dietary Cholesterol Absorption Inhibitor Start: 009 take 1 tablet by mouth once daily Ezetimibe 10 mg tablet Active 10 mg PO DAILY July 15, 2022 12:00am Comment on above: Take one(1) tablet d aily. glipiZIDE 5 mg oral tablet (20 sources) Sulfonylurea Start: 023 take 2.5 mg by mouth once daily Glipizide 5 mg tablet Active 5 mg PO DAILY July 15, 2022 12:00am diabetes 2.5 mg daily Start: 03-20-2022 glipiZIDE 2.5 mg oral tablet, extended release Dose : 2.5 mg = 1 tab(s), Oral, qDayM, 0 Refill(s) Start Date: 03/20/22 Status: Ordered Repeat number: 1 24 hr metoprolol succinate 50 mg extended release oral tablet (2 sources) beta-Adrenergic Dioni Start: 09-19-2008 metoprolol succinate(TOPROL XL 50 MG 24 HR TAB) Indications: Secondary thrombocytopenia Take one(1) tablet daily. 0 09/19/2008 Active Comment on above: Take one(1) tablet daily. predniSONE 10 mg oral tablet (20 sources) Start: 09-18-2024 take 1 tablet by mouth once daily Prednisone 10 mg tablet Active 10 mg PO DAILY 14 14 0 September 18, 2024 12:00am October 01, 2024 12:00am Starting 09/19/2024, once daily after food Start: 09-18-2024 take 1 tablet by kirit th once daily, then take 2 tablets by mouth once daily Prednisone 5 mg tablet Active 5 mg PO DAILY 30 30 September 18, 2024 12:00am Starting October 03, 2024 after completion of prednisone 10 mg daily prescription Start: 08-25-2024 End: 09-18-2024 Prednisone 20 mg tablet Disc ontinued 0 PO DAILY 53 0 August 25, 2024 12:00am September 18, 2024 3:03pm 40 mg once daily for 2 week, 30 mg once daily for 1 week and then 20 mg for 1 week, then 10 mg to 2 weeks Start: 07-15-2022 take 1 tablet by kirit th once daily, then take 0.5 tablet by mouth once daily Prednisone Active 5 MG PO DAILY July 15, 2022 2:22pm take 1 and 1/2 tab daily Start: 04-27-2022 End: 08-25-2024 take 1 tablet by mouth once daily, then take 0.5 tablet by mouth once daily Prednisone 5 mg tablet Discontinued 5 mg PO DAILY July 15, 2022 12:00am August 25, 2024 3:12pm inflammation 1 and 1/2 tab daily Start: 09-21-2018 End: 07-15-2022 take 1 tablet by mouth once daily Prednisone 10 tablet Discontinued 10 mg PO DAILY September 21, 2018 12:00am July 15, 2022 2:31pm Start: 09-19-2008 take 5 mg by mouth o nce daily, then take 1.5 mg by mouth once daily at mealtime PREDNISONE 10 MG TAB Indications: Secondary thrombocytopenia Take 5 mg by mouth once daily. ADMINISTER WITH FOOD 1.5 mg daily 0 09/19/2008 Active Start: 09-19-2008 PREDNISONE 10 MG TAB Indications: Secondary thrombocytopenia take 12.5 mg per day 0 09/19/2008 Active take 7.5 mg by mouth once daily predniSONE (DELTASONE) 5 mg tablet Take 7.5 mg by mouth once daily. Active take 1.5 tablets by mouth once daily predniSONE 5 MG Oral Tablet TAKE 1.5 TABLET Daily Quantity: 45 Refills: 6 Ordered: 23-Dec-2020 DO Active Comment on above: take 12.5 mg per day risedronate sodium 35 mg oral tablet (2 sources) Start: take 1 tablet by mouth every week in the morning risedronate sodium(ACTONEL 35 MG TAB) Indications: Secondary thrombocytopenia Take once per week in the morning with a full glass of water, on an empty stomach, and do not take anything else by mouth or lie down for the next 30 minutes. 0 09/19/2008 Active Comment on above: Take once per week i n the morning with a full glass of water, on an empty stomach, and do not take anything else by mouth or lie down for the next 30 minutes. spironolactone 100 mg oral tablet (20 sources) Aldosterone Antagonist Start: spironolactone 100 mg oral tablet Dose : 100 mg = 1 tab(s), Oral, qDay, # 30 tab(s), 0 Refill(s) Start Date: 02/21/24 Status: Ordered Quantity: 30.0 Unit: tab(s) Repeat number: 1 Start: 09-23-2023 take 1 tablet by kirit th in the morning spironolactone (Aldactone) 100 mg tablet Take 1 tablet (100 mg) by mouth early in the morning.. 09/23/2023 Active Start: 09-23-2018 take 1 tablet by kirit th twice daily Spironolactone 25 MG tablet Active 25 mg PO TWICE A DAY 60 0 September 23, 2018 12:00am diuretic End: 10-04-2023 take 1 tablet by mouth once daily spironolactone (ALDACTONE) 25 mg tablet Take 25 mg by mouth once daily. Active sucralfate 1000 mg oral tablet (10 sources) Aluminum Complex Start: 11-29-2022 take 1 tablet by mouth 1 hour(s) before mealtime Sucralfate 1 gram Tablet Active 1 g PO ONE HOURS BEFORE MEALS & BED 90 30 0 November 29, 2022 12:00am ursodiol 500 mg oral tablet (6 sources) Bile Acid Start: 08-28-2024 take 1 tablet by mouth every eight hours Ursodiol 500 mg tablet Active 500 mg PO Q8H 90 30 4 August 28, 2024 7:04am Start: 08-25-2024 End: 08-28-2024 take 1 tablet by mouth twice daily Ursodiol 500 mg tablet Discontinued 500 mg PO TWICE A DAY 60 30 4 August 25, 2024 12:00am August 28, 2024 7:04am Completed/Discontinued Medications Medication Drug Class(es) Dates Sig (Normalized) Sig (Original) amLODIPine 5 mg oral tablet (20 sources) Dihydropyridine Calcium Channel Dioni Start: 10-14-2022 End: 11-28-2022 take 2.5 mg by mouth once daily Amlodipine 5 mg tablet Discontinued 5 mg PO DAILY October 14, 2022 10:37am November 28, 2022 2:10am 2.5 mg per day Start: 09-21-2018 End: 10-14-2022 take 1 tablet by mouth once daily Amlodipine 5 mg tablet Discontinued 5 mg PO DAILY 30 1 September 03, 2022 3:39pm October 14, 2022 10:37am Start: 09-19-2008 amlodipine bes ylate(NORVASC 10 MG TAB) Indications: Secondary thrombocytopenia Take one(1) tablet daily. 0 09/19/2008 Active Comment on above: Take one(1) tablet d aily. azaTHIOprine 50 mg oral tablet (20 sources) Purine Antimetabolite Start: 11-29-19 End: 08-26-19 take 1 tablet by mouth once daily Azathioprine 50 mg tablet Discontinued 50 mg PO daily 30 30 2 August 25, 2024 12:00am August 25, 2024 2:14pm Start: 11-28-2022 take 75 mg by mouth once daily Azathioprine Active 75 MG PO DAILY November 28, 2022 12:00am Start: 06-12-2021 take 1.5 tablets by mouth once daily azaTHIOprine (Imuran) 50 mg tablet Take 1.5 tablets (75 mg) by mouth once daily. 06/12/2021 Active Start: 06-12-2021 azaTHIOprine 5 0 MG Oral Tablet Quantity: 0 Refills: 0 Ordered: 12-Jun-2021 DO Start : 12-Jun-2021 Active azaTHIOprine (IM URAN) 50 mg tablet Take 75 mg by mouth once daily. Active ferrous sulfate 325 mg oral tablet (20 sources) Start: 08-25-2024 End: 08-25-2024 take 1 tablet by mouth every other day Ferrous Sulfate 325 mg (65 mg iron) tablet Discontinued 325 mg PO every other day 60 0 August 25, 2024 11:07am August 25, 2024 3:11pm supplement Start: 09-23-2018 End: 08-25-2024 take 1 tablet by mouth twice daily at mealtime Ferrous Sulfate 325 MG tablet Discontinued 325 mg PO TWICE DAILY WITH MEALS 60 0 September 23, 2018 12:00am August 25, 2024 11:22am supplement take 2 tablets by mo uth once daily ferrous sulfate (IRON) 325 mg (65 mg iron) tablet Take two tablets by mouth once daily. Active Iron (6 sources) Iron TABS Quanti ty: 0 Refills: 0 Ordered: 29-Mar-2020 DO Active levothyroxine sodium 0.05 mg oral capsule (17 sources) l-Thyroxine Start: 07-15-2022 End: 08-25-2024 Levothyroxine 50 mcg capsule Discontinued 300 ug PO MAIN July 15, 2022 12:00am August 25, 2024 9:59am thyroid Start: 07-15-2022 Levothyroxine Active 300 MCG PO MAIN July 15, 2022 12:00am Start: 07-15-2022 take 50 ug by mouth once daily Levothyroxine Active 50 MCG PO DAILY July 15, 2022 12:00am 6 days a week Start: 03-20-2022 levothyroxine 50 mcg (0.05 mg) oral tablet Dose : 50 mcg = 1 tab(s), Oral, qDayAC, 0 Refill(s) Start Date: 03/20/22 Status: Ordered Repeat number: 1 pantoprazole 40 mg delayed release oral tablet (20 sources) Proton Pump Inhibitor Start: 02-21-2024 End: 08-25-2024 take 1 tablet by mouth once daily Pantoprazole (Protonix) 40 mg tablet,delayed release (DR/EC) Discontinued 40 mg PO daily 30 30 4 August 25, 2024 11:14am August 25, 2024 3:12pm Start: 04-03-2023 take 1 tablet by kirit th once daily before mealtime pantoprazole (ProtoNix) 40 mg EC tablet Take 1 tablet (40 mg) by mouth once daily in the morning. Take before meals. 0 04/03/2023 Active Start: 11-29-2022 End: 08-25-2024 take 1 tablet by mouth twice daily Pantoprazole (Protonix) 40 mg tablet,delayed release (DR/EC) Discontinued 40 mg PO TWICE A DAY 60 30 0 December 03, 2022 8:05am August 25, 2024 11:22am 24 hr propranolol hydrochloride 80 mg extended release oral capsule (20 sources) beta-Adrenergic Dioni Start: 09-23-2018 End: 07-15-2022 take 1 capsule by mouth once daily Propranolol 80 MG capsule Discontinued 80 mg PO DAILY 30 0 September 23, 2018 12:00am July 15, 2022 2:27pm take 1 tablet by mouth once dionicio y Propranolol HCl - 80 MG Oral Tablet Take 1 tablet daily Quantity: 0 Refills: 0 Ordered: 29-Mar-2020 DO Active Problems Active Problems Problem Classification Problem Date Documented Da te Episodic/Chronic Acute posthemorrhagic anemia (14 sources) Acute posthemorrhagic anemia; Translations: [Acute posthemorrhagic anemia] 11-27-2022 Episodic Cardiac dysrhythmias (20 sources) Tachycardia; Translations: [Tachycardia, unspecified] 09-21-2018 Episodic Chronic ulcer of skin (17 sources) Ulcer of toe; Translations: [Non-pressure chronic ulcer of other part of left foot with unspecified severity] 07-15-2022 Chronic Coagulation and hemorrhagic disorders (4 sources) Platelet count below reference range; Translations: [Thrombocytopenia, unspecified] Onset: 05-18-2023 05-18-2023 Chronic Deficiency and other anemia (6 sources) Pancytopenia; Translations: [Other pancytopenia] 08-25-2024 Chronic Diabetes mellitus without complication (20 sources) Diabetes mellitus; Translations: [Type 2 diabetes mellitus without complications] Onset: 06-18-2023 07-15-2022 Chronic Esophageal disorders (6 sources) Esophageal varices; Translations: [Esophageal varices without mention of bleeding] Chronic Essential hypertension (14 sources) Hypertensive disorder; Translations: [Essential (primary) hypertension] Onset: 04-27-2024 09-02-2022 Chronic Gastrointestinal hemorrhage (6 sources) Bleeding esophageal varices; Translations: [Esophageal varices with bleeding] Onset: 04-05-2023 04-05-2023 Chronic Hepatitis (20 sources) Autoimmune hepatitis; Translations: [Autoimmune hepatitis] Onset: 04-05-2023 09-22-2018 Chronic Malaise and fatigue (2 sources) Asthenia; Translations: [Weakness] 09-26-2024 Episodic Occlusion or stenosis of precerebral arteries (11 sources) Carotid artery stenosis; Translations: [Occlusion and stenosis of unspecified carotid artery] 09-03-2022 Chronic Other circulatory disease (12 sources) Raynaud's disease; Translations: [Raynaud's syndrome without gangrene] 07-15-2022 Chronic Other circulatory disease (6 sources) Raynaud's syndrome without gangrene; Translations: [Raynaud's syndrome] Onset: 07-10-2024 07-15-2022 Chronic Other circulatory disease (11 sources) Disorder of carotid artery; Translations: [Disorder of arteries and arterioles, unspecified] 09-02-2022 Chronic Other circulatory disease (1 source) Raynaud's phenomenon; Translations: [Raynaud's syndrome without gangrene] Onset: 07-10-2024 Chronic Other circulatory disease (6 sources) H/O: hypertension; Translations: [Personal history of other diseases of circulatory system] Episodic Other circulatory disease (2 sources) Low blood pressure; Translations: [Hypotension, unspecified] 09-26-2024 Episodic Other connective tissue disease (6 sources) H/O: arthritis; Translations: [Personal history of arthritis] Episodic Other connective tissue disease (6 sources) H/O: osteoarthritis; Translations: [Personal history of arthritis] Episodic Other liver diseases (20 sources) Cirrhosis of liver; Translations: [Cirrhosis of liver without mention of alcohol] Onset: 04-05-2023 09-22-2018 Chronic Other liver diseases (2 sources) Other cirrhosis of liver; Translations: [Other cirrhosis of liver (Multi)] Onset: 04-05-2023 Chronic Other liver diseases (6 sources) Portal hypertension; Translations: [Portal hypertension] 08-25-2024 Chronic Other liver diseases (1 source) Unspecified cirrhosis of liver; Translations: [Unspecified cirrhosis of liver] Onset: 06-22-2024 Chronic Other screening for suspected conditions (not mental disorders or infectious disease) (4 sources) Other specified abnormal findings of blood chemistry; Translations: [Abnormal results of thyroid function studies] Onset: 10-04-2023 Episodic Residual codes; unclassified (6 sources) H/O: Disorder; Translations: [Personal history of other specified diseases] Episodic Residual codes; unclassified (6 sources) History of clinical finding in subject; Translations: [Personal history of other specified diseases] Episodic Residual codes; unclassified (2 sources) Peripheral edema; Translations: [Localized edema] 09-26-2024 Episodic Rheumatoid arthritis and related disease (8 sources) Rheumatoid arthritis of shoulder; Translations: [Rheumatoid arthritis with rheumatoid factor of right shoulder without organ or systems involvement] Onset: 04-05-2023 04-05-2023 Chronic Systemic lupus erythematosus and connective tissue disorders (20 sources) Lupus erythematosus; Translations: [Systemic lupus erythematosus] Onset: 09-18-2022 09-22-2018 Chronic Thyroid disorders (6 sources) Acquired hypothyroidism; Translations: [Hypothyroidism, unspecified] Onset: 10-04-2023 04-05-2023 Chronic Past or Other Problems Problem Classification Problem Date Documented Da te Episodic/Chronic Coagulation and hemorrhagic disorders (2 sources) Secondary thrombocytopenia; 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] Onset: 09-19-2008 09-19-2008 Episodic Deficiency and other anemia (1 source) Anemia, unspecified; Translations: [Anemia, unspecified type] Onset: 05-18-2023 Episodic Hepatitis (1 source) Unspecified viral hepatitis without hepatic coma; Translations: [Unspecified viral hepatitis without hepatic coma] Onset: 02-02-2024 Episodic Unclassified (2 sources) Onset: 04-05-2023 Resolved: 10-04-2023 04-05-2023 Results Test Name Value Interpretation Reference Range Facility Absolute lymphocyte countOrd ered By: Adbiel Vines on 09-26-2024 Lymphocytes Auto (Unsp spec) [#/Vol] 0.10 10*3/uL Low 0.83-4.51 [facility] Absolute neutrophil countOrd ered By: Abdiel Vines on 09-26-2024 Neutrophils (Bld) [#/Vol] 6.3 10*3/uL 2.0-7.7 [facility] Activated partial thrombopla stin time (aPTT) in platelet poor plasma by coagulation aOrdered By: Abdiel Vines on 09-26-2024 aPTT Coag (PPP) [Time] 25.2 s 24.1-36.2 [facility] Anion gap in Serum or Plasma Ordered By: Abdiel Vines on 09-26-2024 Anion gap [Moles/Vol] 11 mmol/L 5-15 [facility] Automated lymphocyte count a s percentage of total leukocytesOrdered By: Abdiel Vines on 09-26-2024 Lymphocytes/100 WBC Auto (Unsp spec) 1.5 % Low 19-41 [facility] BUN/creatinine ratioOrdered By: Abdiel Vines on 09-26-2024 Urea nitrogen/Creatinine [Mass ratio] 41.3 mg/mg High 10-20 [facility] Basophil percentageOrdered B y: Abdiel Vines on 09-26-2024 Basophils/100 WBC (Bld) 0.0 % 0-1 [facility] Bilirubin Test strip Ql (U)O rdered By: Abdiel Vines on 09-26-2024 Bilirubin Ql (U) Negative Negative [facility] Bilirubin, totalOrdered By: Abdiel Vines on 09-26-2024 Bilirubin [Mass/Vol] 1.28 mg/dL 0.00-1.30 [facility] Carbon dioxide, total [Moles /volume] in Central venous bloodOrdered By: Abdiel Vines on 09-26-2024 CO2 [Moles/Vol] 19.5 mmol/L Low 21.0-32.0 [facility] Chloride assayOrdered By: Yan Vines on 09-26-2024 Chloride [Moles/Vol] 98 mmol/L 98-108 [facility] Eosinophil percentageOrdered By: Abdiel Vines on 09-26-2024 Eosinophils/100 WBC (Bld) 0.0 % 0-5 [facility] Erythrocyte distribution wid th ratioOrdered By: Abdiel Vines on 09-26-2024 Erythrocyte distribution width (RBC) [Ratio] 16.4 % High 11.6-14.6 [facility] Erythrocyte distribution wid th standard deviationOrdered By: Abdiel Vines on 09-26-2024 Erythrocyte distribution width (RBC) [Ratio] 48.9 fl High 35.1-43.9 [facility] Glomerular filtration rate ( GFR) estimation/1.73 sq m using serum, plasma, or whole bOrdered By: Abdiel Vines on 09-26-2024 GFR/1.73 sq M.predicted among non-blacks MDRD (S/P/Bld) [Vol rate/Area] 84 mL/min/{1.73_m2} >60 [facility] Comment on above: mL/min/1.73m2 CKD-EP I Creatinine Equation (2020) Hematocrit Auto (Bld) [Volum e fraction]Ordered By: Abdiel Vines on 09-26-2024 Hematocrit (Bld) [Volume fraction] 28.4 % Low 37-47 [facility] [facility] Hemoglobin measurementOrdere d By: Abdiel Vines on 09-26-2024 Hemoglobin (Bld) [Mass/Vol] 8.6 g/dL Low 12.0-15.0 [facility] Immature granulocytes/100 WB C Auto (Bld)Ordered By: Abdiel Vines on 09-26-2024 Immature granulocytes/100 WBC (Bld) 1.800 % High 0.0-0.9 [facility] Comment on above: IG% - Immature Granu locytes (promyelocytes, myelocytes and metamyelocytes) > 1% indicates that a LEFT SHIFT is Present. International normalized rat io (INR) calculationOrdered By: Abdiel Vines on 09-26-2024 INR Coag (Bld) [Relative time] 1.4 {INR} [facility] Ketones Test strip Ql (U)Ord ered By: Abdiel Vines on 09-26-2024 Ketones Ql (U) Negative Negative [facility] Laboratory - Chemistry and C hemistry - challengeOrdered By: Abdiel Vines on 09-26-2024 AST [Catalytic activity/Vol] 24 U/L <32 [facility] Lactic acid measurementOrder ed By: Abdiel Vines on 09-26-2024 Lactate [Moles/Vol] 2.1 mmol/L High 0.0-2.0 [facility] Comment on above: Critical Result(s) C alled at: 1542 by: SARITHA FRIEDMAN TO COLLETTE CEBALLOS Results read back by same. Lipase measurementOrdered By : Abdiel Vines on 09-26-2024 Lipase [Catalytic activity/Vol] 139 U/L High 13-75 [facility] Comment on above: Please note:LIPASE r evised reference range effective 22. New Lipase methodology. Expected to produce lower values than the previous assay method. NEW Reference Range: 13 - 75 U/L MCV (mean corpuscular volume ) determinationOrdered By: Abdiel Vines on 09-26-2024 MCV (RBC) [Entitic vol] 81.6 fL 81-99 [facility] Mean corpuscular hemoglobin (MCH) determinationOrdered By: Abdiel Vines on 09-26-2024 MCH (RBC) [Entitic mass] 24.7 pg Low 27.0-32.0 [facility] Mean corpuscular hemoglobin concentration (MCHC) determinationOrdered By: Abdiel Vines on 09-26-2024 MCHC (RBC) [Mass/Vol] 30.3 g/dL Low 32-36 [facility] Microscopic analysis of urin e for red blood cells (RBC)Ordered By: Abdiel Vines on 09-26-2024 Microscopic analysis of urine for red blood cells (RBC) 0 SEEN /hpf 0-5 [facility] Monocyte percentageOrdered B y: Abdiel Vines on 09-26-2024 Monocytes/100 WBC (Bld) 3.7 % 0-10 [facility] Mucus LM Ql (Urine sed)Order ed By: Abdiel Vines on 09-26-2024 Mucus Ql (Urine sed) 0 SEEN /hpf [facility] Natriuretic peptide.B prohor mica N-Terminal [Mass/volume] in Serum or PlasmaOrdered By: Abdiel Vines on 09-26-2024 Natriuretic peptide.B prohormone N-Terminal [Mass/Vol] 1345 pg/mL High <900 [facility] Comment on above: Heart Failure Unlike ly: < 300 pg/mLHeart Failure Likely< 50 Years: > 450 pg/mL50-75 Years: > 900 pg/mL>75 Years: > 1800 pg/mL Neutrophil percentageOrdered By: Abdiel Vines on 09-26-2024 Neutrophils/100 WBC (Bld) 93.0 % High 47-70 [facility] Nitrite Test strip Ql (U)Ord ered By: Abdiel Vines on 09-26-2024 Nitrite Ql (U) Negative Negative [facility] Nucleated red blood cell per centageOrdered By: Abdiel Vines on 09-26-2024 Nucleated RBC/100 WBC (Bld) [Ratio] 0 % 0-5 [facility] Platelet countOrdered By: Yan Vines on 09-26-2024 Platelets (Bld) [#/Vol] 42 10*3/uL Low 150-450 [facility] Potassium measurement (mass/ volume)Ordered By: Abdiel Vines on 09-26-2024 Potassium (Unsp spec) [Mass/Vol] 4.8 mmol/L 3.3-5.1 [facility] Protein Test strip Ql (U)Ord ered By: Abdiel Vines on 09-26-2024 Protein Ql (U) 15 mg/dl High Negative [facility] Prothrombin timeOrdered By: Abdiel Vines on 09-26-2024 PT Coag (PPP) [Time] 17.0 s High 11.7-14.9 [facility] RBC Auto (Bld) [#/Vol]Ordere d By: Abdiel Vines on 09-26-2024 RBC (Bld) [#/Vol] 3.48 10*6/uL Low 4.2-5.4 [facility] Serum creatinine measurement (mass/volume)Ordered By: Abdiel Vines on 09-26-2024 Creatinine [Mass/Vol] 0.77 mg/dL 0.70-1.20 [facility] Serum globulin measurementOr dered By: Abdiel Vines on 09-26-2024 Globulin (S) [Mass/Vol] 3.1 g/dL 2.2-4.2 [facility] Serum glucose measurement (m ass/volume)Ordered By: Abdiel Vines on 09-26-2024 Glucose [Mass/Vol] 170 mg/dL High 70-99 [facility] Serum or plasma alanine kilgore otransferase (ALT) measurementOrdered By: Abdiel Vines on 09-26-2024 ALT [Catalytic activity/Vol] 35 U/L <35 [facility] Serum or plasma albumin diana urement (mass/volume)Ordered By: Abdiel Vines on 09-26-2024 Albumin [Mass/Vol] 2.8 g/dL Low 3.4-4.8 [facility] Serum or plasma albumin/glob ulin mass ratioOrdered By: Abdiel Vines on 09-26-2024 Albumin/Globulin [Mass ratio] 0.9 {ratio} 0.9-2.4 [facility] Serum or plasma alkaline clementine sphatase measurementOrdered By: Abdiel Vines on 09-26-2024 ALP [Catalytic activity/Vol] 99 U/L 35-104 [facility] Serum or plasma calcium diana urement (mass/volume)Ordered By: Abdiel Vines on 09-26-2024 Calcium [Mass/Vol] 8.7 mg/dL 7.6-11.0 [facility] Serum or plasma urea nitroge n measurement (mass/volume)Ordered By: Abdiel Vines on 09-26-2024 Urea nitrogen [Mass/Vol] 32 mg/dL High 4-19 [facility] Sodium levelOrdered By: Abdiel Vines on 09-26-2024 Sodium [Moles/Vol] 129 mmol/L Low 133-145 [facility] Squamous epithelial cells de tection in urine sediment by light microscopyOrdered By: Abdiel Vines on 09-26-2024 Epithelial cells.squamous LM Ql (Urine sed) 0 SEEN /hpf 5-10 [facility] Total proteinOrdered By: Mary Vines on 09-26-2024 Protein [Mass/Vol] 5.9 g/dL 5.9-8.4 [facility] Urine clarityOrdered By: Mary Vines on 09-26-2024 Clarity (U) Clear Clear [facility] Urine color determinationOrd ered By: Abdiel Vines on 09-26-2024 Color (U) Yellow Yellow [facility] Urine glucose detectionOrder ed By: Abdiel Vines on 09-26-2024 Glucose Ql (U) 250 mg/dl High Normal [facility] Urine leukocyte esterase det ection by dipstickOrdered By: Abdiel Vines on 09-26-2024 Leukocyte esterase Test strip Ql (U) Negative Negative [facility] Urine pHOrdered By: Abdiel kay on 09-26-2024 pH (U) 6.0 [pH] 5.0 - 8.0 [facility] Urine sediment bacteria coun t by microscopy (number/high power field)Ordered By: Abdiel Vines on 09-26-2024 Bacteria LM.HPF (Urine sed) [#/Area] 0 /[HPF] None Seen [facility] Urine specific gravity measu rementOrdered By: Abdiel Vines on 09-26-2024 Specific gravity (U) [Rel density] 1.015 1.002-1.030 [facility] Urine urobilinogen measureme ntOrdered By: Abdiel Vines on 09-26-2024 Urobilinogen Ql (U) 1 mg/dl High Normal [facility] White blood cell (WBC) count Ordered By: Abdiel Vines on 09-26-2024 WBC (Bld) [#/Vol] 6.8 10*3/uL 4.4-11.0 [facility] White blood cell countOrdere d By: Abdiel Vines on 09-26-2024 White blood cell count 0 SEEN /hpf 0-5 [facility] [id number] 09-14-2024 [facility] Misc. COMMENT Normal . [facility] Comment on above: Order Comment: [id number] 7Autoimmune hepatitis profile Result Comment: Test Ordered: [id number] Autoimmune Liver Profile (RDL) Test(s) 760801-Lrga-Hpswmfp Ab by IFA (RDL); 737573- Homogeneous Pattern; 845220-Ziogicqwh Pattern; 562560- Speckled Pattern; 921785-Gqbwumobar Pattern; 573429- Spindle Apparatus Pattern; 683005-Qrgwznz Membrane Pattern; 552868-Dowozeh Pattern; 127454-Jlvedjo Dot Pattern; 980270- PCNA Pattern; 372652-Wgnttuuxn Pattern was developed and its performance characteristics determined by [facility]. It has not been cleared or approved by the Food and Drug Administration. Anti-Nuclear Ab by IFA (RDL) Positive [A ] ESECF Reference Range: Negative Homogeneous Pattern CARBURETOR REPAIRER NOLAB Reference Range: . Nucleolar Pattern CARBURETOR REPAIRER NOLAB Reference Range: . Speckled Pattern 1:1280 [H ] ESECF Reference Range: <1:40 Centromere Pattern CARBURETOR REPAIRER NOLAB Reference Range: . Spindle Apparatus Pattern CARBURETOR REPAIRER NOLAB Reference Range: . Nuclear Membrane Pattern CARBURETOR REPAIRER NOLAB Reference Range: . Midbody Pattern CARBURETOR REPAIRER NOLAB Reference Range: . Nuclear Dot Pattern CARBURETOR REPAIRER NOLAB Reference Range: . PCNA Pattern CARBURETOR REPAIRER NOLAB Reference Range: . Centriole Pattern CARBURETOR REPAIRER NOLAB Reference Range: . Note: Comment ESECF Reference Range: . ILDA performed by Indirect Fluorescent Antibody (IFA) Test(s) 445569-Mzsj-Xsqdp/Kidney Ab (RDL); 983998- Anti-Mitochondrial Ab by IFA was developed and its performance characteristics determined by [facility]. It has not been cleared or approved by the Food and Drug Administration. ANCA by IFA (RDL) Negative ESECF Reference Range: Negative Anti-Chromatin Ab, IgG (RDL) 21 [H ] Units ESECF Reference Range: <20 Anti-Liver/Kidney Ab (RDL) <20 Units ESECF Reference Range: <20 Negative: <20 Equivocal: 20 - 25 Positive: >25 Anti-Mitochondrial M2 Ab (RDL) 161 [H ] Units ESECF Reference Range: <20 Negative: <20 Equivocal: 20 - 25 Positive: >25 Anti-Soluble Liver Ag Ab (RDL) <20 Units ESECF Reference Range: <20 Negative: <20 Equivocal: 20 - 25 Positive: >25 Anti-Smooth Muscle Ab by IFA <1:20 ESECF Reference Range: <1:20 Anti-Mitochondrial Ab by IFA <1:20 ESECF Reference Range: <1:20 Interpretation for Anti-Chromatin: Negative: <20 Moderate Positive: 20 - 60 Strong Positive: >60 Performed at: [facility] [address] [place] [id number] Linter Tender: Edouard Easton MD, Phone: [phone] Performed at: [facility] [address], [place] [id number] Linter Tender: Chandler Brock PhD, Phone: [phone] Performed By: #### L 100.0100, L500.4050, L500.4100, L300.3900, L3300.0700, L300.4310 #### [facility] [address] [place] [address]. [place], [address] ANAIFSon 09-12-2024 Antinuclear Ab Pattern Nuclear fine speckled Normal [facility] Comment on above: Result Comment: Perf ormed By: [facility] [address] [place] [address] Linter Tender: Bladimir Finley III, M.D. CLIA#: [id number] Performed By: #### 0 75330, HAPTO, RF, C3C4A, LD, ENA1, RIBAB, 308102, 121356, RETIC, 804329, CCP, MCRSO, 232200, 131926, ANAIFS #### [place] [address] Antinuclear Ab Pattern 2 Cytoplasmic fine speckled Normal [facility] Comment on above: Result Comment: Perf ormed By: [facility] [address] [place] [address] Linter Tender: Bladimir Finley III, M.D. CLIA#: [id number] Performed By: #### 0 18536, HAPTO, RF, C3C4A, LD, ENA1, RIBAB, 217650, 113482, RETIC, 666931, CCP, MCRSO, 775270, 371476, ANAIFS #### [place] [address] Antinuclear Ab Screen Positive Abnormal Negative [facility] Comment on above: Result Comment: Anti -nuclear antibody test is used as an aid in diagnosis of systemic autoimmune diseases. Where positive and clinically warranted, follow-up using disease-specific testing is recommended. Low positive titers are not uncommon with advanced age, certain chronic infections, and malignancies among others. Test methodology: Indirect fluorescence immunoassay (IFA) using HEp-2 cells. Performed By: [facility] [address] [place] [address] Linter Tender: Bladimir Finley III, M.D. CLIA#: [id number] Performed By: #### 0 62991, HAPTO, RF, C3C4A, LD, ENA1, RIBAB, 645564, 813994, RETIC, 735961, CCP, MCRSO, 755510, 972890, ANAIFS #### [place] [id number] Antinuclear Ab Titer >1:1280 Normal [facility] Comment on above: Result Comment: Perf ormed By: [facility] [address] [place] [address] Linter Tender: Bladimir Finley III, M.D. CLIA#: [id number] Performed By: #### 0 25427, HAPTO, RF, C3C4A, LD, ENA1, RIBAB, 165780, 155934, RETIC, 128800, CCP, MCRSO, 500577, 763865, ANAIFS #### [place] [address] Antinuclear Ab Titer 2 1:640 Normal [facility] Comment on above: Result Comment: Perf ormed By: [facility] [address] [place] [address] Linter Tender: Bladimir Finley III, M.D. CLIA#: [id number] Performed By: #### 0 20853, HAPTO, RF, C3C4A, LD, ENA1, RIBAB, 286732, 670980, RETIC, 048584, CCP, MCRSO, 075492, 413111, ANAIFS #### [place] [address] CCPon 09-11-2024 Cyclic Citrullinated Peptide <20.0 Normal <=19.9 [facility] Comment on above: Result Comment: Cycl ic Citrullinated IgG Interpretation: Result Units Negative <20 Weak Positive 20-39 Moderate Positive 40-59 Strong Positive >=60 A positive result indicates the presence of IgG anti-CCP3 antibodies and suggests the possibility of RA. A negative result indicates no CCP3 antibody or levels below the negative cut-off of the assay. Results of this assay should be used in conjunction with clinical findings and other serological tests. These test results were obtained with the LUX Assure Quanta Lite CCP3 IgG JAIME. Anti-CCP values obtained with different manufacturers' assay methods may not be used interchangeably. Performed By: #### 0 36370, HAPTO, RF, C3C4A, LD, ENA1, RIBAB, 269247, 837087, RETIC, 704188, CCP, MCRSO, 392651, 975289, ANAIFS #### [place] [id number] [facility] 09-11-2024 Copper Lvl 101 UG/DL Normal 80-158 [facility] Comment on above: Result Comment: This test was developed and its performance characteristics determined by [facility]. It has not been cleared or approved by the Food and Drug Administration. Detection Limit = 5 Performed At: [address] [id number] Baljeet Goff MD Ph:[phone] Performed By: #### 0 60903, HAPTO, RF, C3C4A, LD, ENA1, RIBAB, 001956, 712706, RETIC, 328671, CCP, MCRSO, 262888, 788865, ANAIFS #### [address] 09-11-2024 Anti-dsDNA Antibodies 1 IU/mL Normal 0-9 [facility] Comment on above: Result Comment: Nega tive <5 Equivocal 5 - 9 Positive >9 Performed At: [address] [id number] Vinod Arteaga PhD Ph:[phone] Performed By: #### 0 07921, HAPTO, RF, C3C4A, LD, ENA1, RIBAB, 598502, 904115, RETIC, 910122, CCP, MCRSO, 521684, 517375, ANAIFS #### [place] [address] PARIE 09-11-2024 Antiparietal Cell Antibody 2.4 units Normal 0.0-20.0 [facility] Comment on above: Result Comment: Nega tive 0.0 - 20.0 Equivocal 20.1 - 24.9 Positive >24.9 Parietal Cell Antibodies are found in 90% of patients with pernicious anemia and 30% of first degree relatives with pernicious anemia. Performed At: [address] [id number] Vinod Arteaga PhD Ph:[phone] Performed By: #### 0 88277, HAPTO, RF, C3C4A, LD, ENA1, RIBAB, 583376, 172633, RETIC, 347951, CCP, MCRSO, 980904, 006876, ANAIFS #### [place] [address] RFon 09-11-2024 Rheumatoid Factor 7.0 High <=5.9 [facility] Comment on above: Result Comment: RF I gM Antibody by Enzyme Immunoassay: Negative < or = 6 Positive > 6 A positive result indicates the presence of RF antibodies and suggests the possibility of rheumatoid arthritis. A negative result indicates no RF IgM antibody or levels below the negative cut-off of the assay. Results of this assay should be used in conjunction with clinical findings and other serological tests. These results were obtained with the LUX Assure QUANTA Lite RF IgM JAIME. RF IgM values obtained with different manufacturers' assay methods may not be used interchangeably. The magnitude of the reported IgM levels cannot be correlated to an endpoint titer. Performed By: #### 0 99444, HAPTO, RF, C3C4A, LD, ENA1, RIBAB, 598646, 848435, RETIC, 853396, CCP, MCRSO, 937037, 923098, ANAIFS #### [place] [address] RIBABon 09-11-2024 Ribosomal Ab <20.0 Normal <=19.9 [facility] Comment on above: Result Comment: Ribo some P Antibody Interpretation: Result Units Negative <20 Weak Positive 20-39 Moderate Positive 40-80 Strong Positive >80 A positive result indicates the presence of Ribosome P antibodies and suggests the possibility of Systemic Lupus Erythematosus or other related connective tissue diseases. A negative result indicates no Ribosome P antibody or levels below the negative cut-off of the assay. Results of this assay should be used in conjunction with clinical findings and other serological tests. These test results were obtained with the LUX Assure Quanta Lite Ribosome P JAIME. Ribosome P values obtained with different manufacturers' assay methods may not be used interchangeably. Performed By: #### 0 56927, HAPTO, RF, C3C4A, LD, ENA1, RIBAB, 987615, 468272, RETIC, 152485, CCP, MCRSO, 993188, 651979, ANAIFS #### [place] [address] [facility] 09-11-2024 Zinc Lvl 56 UG/DL Normal 44-115 [facility] Comment on above: Result Comment: This test was developed and its performance characteristics determined by [facility]. It has not been cleared or approved by the Food and Drug Administration. Detection Limit = 5 Performed At: [facility] [id number] Baljeet Goff MD Ph:[phone] Performed By: #### 0 52771, HAPTO, RF, C3C4A, LD, ENA1, RIBAB, 633321, 590537, RETIC, 763479, CCP, MCRSO, 457241, 489652, ANAIFS #### [place] [address] ENA1on 09-09-2024 Centromere <0.2 Normal <1.0 [facility] Comment on above: Result Comment: Anti -centromere antibody is used as in aid in diagnosis of systemic sclerosis. Clinical correlation is required. Test Methodology: Multiplex flow immunoassay. Performed By: [facility] [address] [place] [address] Linter Tender: Bladimir Finley III, M.D. CLIA#: [id number] Performed By: #### 0 04742, HAPTO, RF, C3C4A, LD, ENA1, RIBAB, 249402, 076800, RETIC, 332645, CCP, MCRSO, 158267, 995388, ANAIFS #### [place] [address] Centromere Ab Qualitative Negative Normal Negative [facility] Comment on above: Result Comment: Perf ormed By: [facility] [address] [place] [address] Linter Tender: Bladimir Finley III, M.D. CLIA#: [id number] Performed By: #### 0 58093, HAPTO, RF, C3C4A, LD, ENA1, RIBAB, 513177, 408267, RETIC, 629565, CCP, MCRSO, 596620, 475276, ANAIFS #### [place] [id number] Chromatin Ab Qualitative Positive Abnormal Negative [facility] Comment on above: Result Comment: Perf ormed By: [place] [address] Linter Tender: Bladimir Finley III, M.D. CLIA#: [id number] Performed By: #### 0 08150, HAPTO, RF, C3C4A, LD, ENA1, RIBAB, 329924, 396124, RETIC, 222435, CCP, MCRSO, 718218, 075454, ANAIFS #### [address] [address] Chromatin Antibody 7.5 AI High <1.0 [facility] Comment on above: Result Comment: Test Methodology: Multiplex flow immunoassay. Anti-chromatin antibody is used as an aid in diagnosis of systemic lupus erythematosus. Clinical correlation is required. Test Methodology: Multiplex flow immunoassay. Performed By: [place] [address] Linter Tender: Bladimir Finley III, M.D. CLIA#: [id number] Performed By: #### 0 59328, HAPTO, RF, C3C4A, LD, ENA1, RIBAB, 028365, 311957, RETIC, 364766, CCP, MCRSO, 779391, 304677, ANAIFS #### [address] [address] MARIAM 1 Antibody <0.2 Normal <1.0 [facility] Comment on above: Result Comment: Perf ormed By: [place] [address] Linter Tender: Bladimir Finley III, M.D. CLIA#: [id number] Performed By: #### 0 42699, HAPTO, RF, C3C4A, LD, ENA1, RIBAB, 318289, 756232, RETIC, 601377, CCP, MCRSO, 710043, 213984, ANAIFS #### [address] [address] MARIAM 1 Antibody Qual Negative Normal Negative [facility] Comment on above: Result Comment: Anti -MARIAM-1 antibody is used as an aid in diagnosis of polymyositis and dermatomyositis especially with pulmonary involvement. A negative result cannot rule out polymyositis or dermatomyositis. Clinical correlation is required. Test Methodology: Multiplex flow immunoassay. Performed By: [facility] [address] [place] [address] Linter Tender: Bladimir Finley III, M.D. CLIA#: [id number] Performed By: #### 0 98730, HAPTO, RF, C3C4A, LD, ENA1, RIBAB, 306722, 610212, RETIC, 268836, CCP, MCRSO, 064406, 920436, ANAIFS #### [address] [address] Ribosomal ELIGIBILITY SERVICES REPRESENTATIVE <0.2 Normal <1.0 [facility] Comment on above: Result Comment: Perf ormed By: [place] [address] Linter Tender: Bladimir Finley III, M.D. CLIA#: [id number] Performed By: #### 0 41999, HAPTO, RF, C3C4A, LD, ENA1, RIBAB, 127645, 505476, RETIC, 384086, CCP, MCRSO, 998522, 279328, ANAIFS #### [address] [address] Ribosomal ELIGIBILITY SERVICES REPRESENTATIVE Qualitative Negative Normal Negative [facility] Comment on above: Result Comment: Anti -Ribosomal RNA (Ribosomal P) antibody is used as an aid in diagnosis of systemic autoimmune diseases especially systemic lupus erythematosus and mixed connective tissue disease. Cross-reactivity with Anti-mauricio antibody is not uncommon. Clinical correlation is required. Test Methodology: Multiplex flow immunoassay. Performed By: [facility] [address] [place] [address] Linter Tender: Bladimir Finley III, M.D. CLIA#: [id number] Performed By: #### 0 91107, HAPTO, RF, C3C4A, LD, ENA1, RIBAB, 764519, 740872, RETIC, 012404, CCP, MCRSO, 767893, 419318, ANAIFS #### [address] [address] ELIGIBILITY SERVICES REPRESENTATIVE Antibody >8.0 High <1.0 [facility] Comment on above: Result Comment: Anti -ELIGIBILITY SERVICES REPRESENTATIVE antibody is used as an aid in diagnosis of systemic autoimmune diseases especially systemic lupus erythematosus and mixed connective tissue disease. Cross-reactivity with Anti-mauricio antibody is not uncommon. Clinical correlation is required. Test Methodology: Multiplex flow immunoassay. Performed By: [place] [address] Linter Tender: Bladimir Finley III, M.D. CLIA#: [id number] Performed By: #### 0 88338, HAPTO, RF, C3C4A, LD, ENA1, RIBAB, 238700, 486274, RETIC, 524819, CCP, MCRSO, 446576, 375531, ANAIFS #### [address] [address] ELIGIBILITY SERVICES REPRESENTATIVE Antibody Qualitative Positive Abnormal Negative [facility] Comment on above: Result Comment: Perf ormed By: [place] [address] Linter Tender: Bladimir Finley III, M.D. CLIA#: [id number] Performed By: #### 0 50241, HAPTO, RF, C3C4A, LD, ENA1, RIBAB, 012760, 295641, RETIC, 321233, CCP, MCRSO, 087451, 200282, ANAIFS #### [address] [address] Scleroderma Ab, IgG Qualitative Negative Normal Negative [facility] Comment on above: Result Comment: Perf ormed By: [place] [address] Linter Tender: Bladimir Finley III, M.D. CLIA#: [id number] Performed By: #### 0 07137, HAPTO, RF, C3C4A, LD, ENA1, RIBAB, 713181, 615768, RETIC, 795012, CCP, MCRSO, 042045, 370094, ANAIFS #### [address] [address] Scleroderma IgG Ab 0.2 AI Normal <1.0 [facility] Comment on above: Result Comment: Scl- 70/Scleroderma antibody test is used as an aid in diagnosis of systemic sclerosis especially the diffuse cutaneous form. A negative result cannot rule out systemic sclerosis. The final interpretation should consider clinical picture and other test results such as anti-centromere antibody. Test Methodology: Multiplex flow immunoassay. Performed By: [facility] [address] [place] [address] Linter Tender: Bladimir Finley III, M.D. CLIA#: [id number] Performed By: #### 0 53806, HAPTO, RF, C3C4A, LD, ENA1, RIBAB, 912548, 542280, RETIC, 200664, CCP, MCRSO, 439621, 633993, ANAIFS #### [place] [address] Sm Antibody >8.0 High <1.0 [facility] Comment on above: Result Comment: Perf ormed By: [place] [address] Linter Tender: Bladimir Finley III, M.D. CLIA#: [id number] Performed By: #### 0 53956, HAPTO, RF, C3C4A, LD, ENA1, RIBAB, 751398, 849792, RETIC, 773052, CCP, MCRSO, 246912, 579102, ANAIFS #### [place] [address] Sm Antibody Qual Positive Abnormal Negative [facility] Comment on above: Result Comment: Anti -Sm (Mauricio) antibody is used as an aid in diagnosis of systemic lupus erythematosus and its presence is associated with renal disease. A negative result cannot rule out systemic lupus erythematosus. Clinical correlation is required. Test Methodology: Multiplex flow immunoassay. Performed By: [facility] [employer] [address] [place] [address] Linter Tender: Bladimir Finley III, M.D. CLIA#: [id number] Performed By: #### 0 15611, HAPTO, RF, C3C4A, LD, ENA1, RIBAB, 509283, 324185, RETIC, 695691, CCP, MCRSO, 697394, 414410, ANAIFS #### [address] [address] SS-A Antibody 0.2 AI Normal <1.0 [facility] Comment on above: Result Comment: Test Methodology: Multiplex flow immunoassay. Anti-SSA (anti-Ro) antibody is used as an aid in diagnosis of a variety of systemic autoimmune diseases, Sjogren's syndrome among others. Clinical correlation is required. Test Methodology: Multiplex flow immunoassay. Performed By: [facility] [employer] [address] [place] [address] Linter Tender: Bladimir Finley III, M.D. CLIA#: [id number] Performed By: #### 0 61326, HAPTO, RF, C3C4A, LD, ENA1, RIBAB, 935882, 261377, RETIC, 010649, CCP, MCRSO, 707174, 439767, ANAIFS #### [address] [address] SS-B Antibody <0.2 Normal <1.0 [facility] Comment on above: Result Comment: Anti -SSB (anti-La) antibody is used as an aid in diagnosis of a variety of systemic autoimmune diseases, especially for Sjogren's syndrome and systemic lupus erythematosus. Clinical correlation is required. Test Methodology: Multiplex flow immunoassay. Performed By: [facility] [employer] [address] [place] [address] Linter Tender: Bladimir Finley III, M.D. CLIA#: [id number] Performed By: #### 0 92661, HAPTO, RF, C3C4A, LD, ENA1, RIBAB, 963465, 797394, RETIC, 926345, CCP, MCRSO, 690476, 214673, ANAIFS #### [address] [address] SSA Antibody Qualitative Negative Normal Negative [facility] Comment on above: Result Comment: Perf ormed By: [facility] [employer] [address] [place] [address] Linter Tender: Bladimir Finley III, M.D. CLIA#: [id number] Performed By: #### 0 84630, HAPTO, RF, C3C4A, LD, ENA1, RIBAB, 439352, 941301, RETIC, 495913, CCP, MCRSO, 698740, 735564, ANAIFS #### [place] [id number] SSB Antibody Qualitative Negative Normal Negative [facility] Comment on above: Result Comment: Perf ormed By: [facility] [employer] [address] [place] [address] Linter Tender: Bladimir Finley III, M.D. CLIA#: [id number] Performed By: #### 0 88733, HAPTO, RF, C3C4A, LD, ENA1, RIBAB, 857408, 465593, RETIC, 094588, CCP, MCRSO, 405090, 592713, ANAIFS #### [place] [id number] MITOon 09-09-2024 Mitochondrial (M2) Antibody 160.9 units High 0.0-20.0 [facility] Comment on above: Result Comment: Nega tive 0.0 - 20.0 Equivocal 20.1 - 24.9 Positive >24.9 Mitochondrial (M2) Antibodies are found in 90-96% of patients with primary biliary cirrhosis. Performed At: [facility] [address] [id number] Vinod Arteaga PhD Ph:[phone] Performed By: #### 0 89772, HAPTO, RF, C3C4A, LD, ENA1, RIBAB, 301837, 817409, RETIC, 889781, CCP, MCRSO, 257449, 652928, ANAIFS #### [place] [id number] [facility]24 LC Order Number [id number] [facility] Comment on above: Order Comment: Compl ement C3([id number])-Refrigerate Performed By: #### 0 59564, HAPTO, RF, C3C4A, LD, ENA1, RIBAB, 911434, 561491, RETIC, 653045, CCP, MCRSO, 463974, 760102, ANAIFS #### [place] [address] LC Test Name Complement C3 [facility] Comment on above: Order Comment: Compl ement C3([id number])-Refrigerate Performed By: #### 0 87456, HAPTO, RF, C3C4A, LD, ENA1, RIBAB, 094087, 269586, RETIC, 196823, CCP, MCRSO, 210871, 566582, ANAIFS #### [address] Test Result COMMENT Normal [facility] Comment on above: Order Comment: Anabella cartwright C3([id number])-Refrigerate Result Comment: Test Ordered: [id number] Complement C3, Serum Complement C3, Serum 79 [L ] mg/dL Reference Range: 82-167 Performed At: [address] [id number] Vinod Arteaga PhD Ph:[phone] Performed By: #### 0 96486, HAPTO, RF, C3C4A, LD, ENA1, RIBAB, 695309, 077142, RETIC, 919427, CCP, MCRSO, 907541, 154054, ANAIFS #### [place] [address] SMUSCon 09-09-2024 Actin (Smooth Muscle) Antibody 12 units Normal 0-19 [facility] Comment on above: Result Comment: Nega tive 0 - 19 Weak positive 20 - 30 Moderate to strong positive >30 Actin Antibodies are found in 52-85% of patients with autoimmune hepatitis or chronic active hepatitis and in 22% of patients with primary biliary cirrhosis. Performed At: [address] [id number] Vinod Arteaga PhD Ph:[phone] Performed By: #### 0 38712, HAPTO, RF, C3C4A, LD, ENA1, RIBAB, 756816, 143985, RETIC, 132745, CCP, MCRSO, 433904, 452672, ANAIFS #### [place] [address] [id number] 09-08-2024 Complement C3A see comment Normal 90.0-170.0 [facility] Comment on above: Result Comment: Reag ent unavailable for testing. C3 testing being sent out to our reference lab. Results to follow. Performed By: #### 0 39401, HAPTO, RF, C3C4A, LD, ENA1, RIBAB, 492243, 797841, RETIC, 072737, CCP, MCRSO, 430447, 128560, ANAIFS #### [place] [address] Final Flow Cytometry Reporto n 09-08-2024 Final Flow Cytometry Report . Pathology Reports Accession: Collected Date/Time: Received Date/Time: Pathologist: [id number] 09/07/2024 16:01 EDT 09/08/2024 06:58 EDT YARITZA MORAN MD Final Flow Cytometry Report INTERPRETATION: NO ABNORMAL LYMPHOID OR MYELOID POPULATION SEEN. FLOW CYTOMETRIC ANALYSIS IS NONDIAGNOSTIC. FLOW CYTOMETRY ANALYSIS PHENOTYPE: Phenotype: There is a mixed population of myeloid cells (98% of total) and T and B-cells. B-cells (<0.5% of total) are polytypic and T-cells account for 1%. TEST RESULTS: sKappa B CELLS sLambda B CELLS HLA-DR LEUKOCYTES CD5 T CELLS CD10 LYMPHOCYTES CD11c MONOCYTES CD13 MYELOID CELLS CD14 MONOCYTES CD15 MYELOID CELLS CD19 B-CELLS CD33 MYELOID CELLS CD34 BLAST CELLS CD45 LEUKOCYTES CD64 MYELOID CELLS CD117 MYELOID CELLS CLINICAL DATA: THROMBOCYTOPENIA SPECIMEN DESCRIPTION: PERIPHERAL WHOLE BLOOD NA Heparin Tube PATH PROF CPT : 77698 Testing performed by MM DISCLAIMER: This test was developed and its performance approved by [facility]. It has not been cleared or approved by the U.S. Food and Drug Administration. The FDA has determined that such clearance or approval is not necessary. This test is used for clinical purposes. It should not be regarded as investigational or for research. This laboratory is certified under the Clinical Laboratory Improvement Amendments of 1998 (CLIA-88) as qualified to perform high complexity clinical laboratory testing. This report represents the signing physician's interpretation, and the reference intervals cannot be established. The signing pathologist can provide written and/or verbal guidance upon request. Verified by Diagnostic interpretation performed at [facility] YARITZA MORAN Sign out Date: 09/08/2024 17:26 Performing Lab: [facility], [address] [place] [address] Pathology Dept Normal [facility] .Auto Diffon 09-07-2024 Basophil, Absolute 0.0 10 3/mcL Normal 0.0-0.3 [facility] Comment on above: Performed By: #### 0 66249, HAPTO, RF, C3C4A, LD, ENA1, RIBAB, 253704, 999562, RETIC, 073353, CCP, MCRSO, 607689, 444539, ANAIFS #### [address] [address] Basophils/100 WBC (Bld) 0.1 % Normal 0.0-2.5 [facility] Comment on above: Performed By: #### 0 18064, HAPTO, RF, C3C4A, LD, ENA1, RIBAB, 141458, 661347, RETIC, 451364, CCP, MCRSO, 337506, 599667, ANAIFS #### [address] [address] Eosinophil, Absolute 0.0 10 3/mcL Normal 0.0-0.7 [facility] Comment on above: Performed By: #### 0 61770, HAPTO, RF, C3C4A, LD, ENA1, RIBAB, 613832, 319440, RETIC, 609594, CCP, MCRSO, 756279, 356408, ANAIFS #### [address] [address] Eosinophils/100 WBC (Bld) 0.0 % Normal 0.0-6.0 [facility] Comment on above: Performed By: #### 0 96776, HAPTO, RF, C3C4A, LD, ENA1, RIBAB, 195221, 094288, RETIC, 219658, CCP, MCRSO, 560159, 744696, ANAIFS #### [address] [address] Lymphocyte, Absolute 0.2 10 3/mcL Low 0.9-4.3 [facility] Comment on above: Performed By: #### 0 27814, HAPTO, RF, C3C4A, LD, ENA1, RIBAB, 570015, 250807, RETIC, 507839, CCP, MCRSO, 204708, 483048, ANAIFS #### [address] [address] Lymphocytes/100 WBC (Bld) 2.6 % Low 20.0-40.0 [facility] Comment on above: Performed By: #### 0 53883, HAPTO, RF, C3C4A, LD, ENA1, RIBAB, 858817, 481355, RETIC, 868127, CCP, MCRSO, 575441, 299838, ANAIFS #### [address] [address] Monocyte, Absolute 0.1 10 3/mcL Normal 0.1-1.4 [facility] Comment on above: Performed By: #### 0 10506, HAPTO, RF, C3C4A, LD, ENA1, RIBAB, 375435, 212007, RETIC, 046490, CCP, MCRSO, 104251, 988892, ANAIFS #### [address] [address] Monocytes/100 WBC (Bld) 2.3 % Normal 2.0-13.0 [facility] Comment on above: Performed By: #### 0 08779, HAPTO, RF, C3C4A, LD, ENA1, RIBAB, 556319, 235132, RETIC, 606742, CCP, MCRSO, 339495, 303729, ANAIFS #### [address] [address] Neutrophils/100 WBC (Bld) 95.0 % High 50.0-75.0 [facility] Comment on above: Performed By: #### 0 29843, HAPTO, RF, C3C4A, LD, ENA1, RIBAB, 013919, 515896, RETIC, 235164, CCP, MCRSO, 269230, 087648, ANAIFS #### [address] [address] .NEUABSon 09-07-2024 Neutrophil, Absolute 5.8 10 3/mcL Normal 2.3-8.1 [facility] Comment on above: Performed By: #### 0 07336, HAPTO, RF, C3C4A, LD, ENA1, RIBAB, 265668, 057796, RETIC, 139335, CCP, MCRSO, 291912, 281074, ANAIFS #### [place] [address] [id number] 09-07-2024 Complement C4A 12.0 mg/dL Low 16.0-38.0 [facility] Comment on above: Performed By: #### 0 96694, HAPTO, RF, C3C4A, LD, ENA1, RIBAB, 592257, 569811, RETIC, 508479, CCP, MCRSO, 937850, 067096, ANAIFS #### [place] [address] CBCon 09-07-2024 Erythrocyte distribution width (RBC) [Ratio] 18.1 % High 11.5-15.5 [facility] Comment on above: Performed By: #### 0 13134, HAPTO, RF, C3C4A, LD, ENA1, RIBAB, 598317, 402025, RETIC, 791003, CCP, MCRSO, 930597, 581735, ANAIFS #### [place] [address] Hematocrit (Bld) [Volume fraction] 28.1 % Low 34.0-46.0 [facility] Comment on above: Performed By: #### 0 36470, HAPTO, RF, C3C4A, LD, ENA1, RIBAB, 050230, 294738, RETIC, 067492, CCP, MCRSO, 308077, 273185, ANAIFS #### [place] [address] Hgb 8.9 G/dL Low 12.0-16.0 [facility] Comment on above: Performed By: #### 0 26250, HAPTO, RF, C3C4A, LD, ENA1, RIBAB, 818176, 496189, RETIC, 739813, CCP, MCRSO, 134404, 858094, ANAIFS #### [place] [address] MCH (RBC) [Entitic mass] 26.0 pg Low 27.0-33.0 [facility] Comment on above: Performed By: #### 0 41816, HAPTO, RF, C3C4A, LD, ENA1, RIBAB, 947264, 028824, RETIC, 645441, CCP, MCRSO, 359384, 093812, ANAIFS #### [place] [address] MCHC 31.7 G/dL Low 32.0-36.0 [facility] Comment on above: Performed By: #### 0 03211, HAPTO, RF, C3C4A, LD, ENA1, RIBAB, 445106, 161492, RETIC, 993252, CCP, MCRSO, 839406, 215017, ANAIFS #### [place] [address] MCV (RBC) [Entitic vol] 82.0 fL Normal 80.0-99.0 [facility] Comment on above: Performed By: #### 0 35322, HAPTO, RF, C3C4A, LD, ENA1, RIBAB, 886507, 443268, RETIC, 937265, CCP, MCRSO, 264825, 521227, ANAIFS #### [place] [address] Platelet 51 10 3/mcL Low 150-450 [facility] Comment on above: Performed By: #### 0 70963, HAPTO, RF, C3C4A, LD, ENA1, RIBAB, 295074, 675683, RETIC, 063775, CCP, MCRSO, 976736, 451919, ANAIFS #### [place] 6[address]69[address] Platelet mean volume (Bld) [Entitic vol] 9.7 fL Normal 6.6-10.5 [facility] Comment on above: Performed By: #### 0 73765, HAPTO, RF, C3C4A, LD, ENA1, RIBAB, 433001, 169756, RETIC, 135682, CCP, MCRSO, 415635, 317033, ANAIFS #### [place] [address] [address] [place] [address] RBC 3.42 10 6/mcL Low 4.10-5.30 [facility] Comment on above: Performed By: #### 0 34846, HAPTO, RF, C3C4A, LD, ENA1, RIBAB, 531723, 920601, RETIC, 683504, CCP, MCRSO, 083235, 842090, ANAIFS #### [place] [address] [address] [place] [address] WBC 6.2 10 3/mcL Normal 4.5-10.8 [facility] Comment on above: Performed By: #### 0 44751, HAPTO, RF, C3C4A, LD, ENA1, RIBAB, 493535, 985553, RETIC, 051641, CCP, MCRSO, 030427, 650258, ANAIFS #### [place] [address] [address] [place] [address] HAPTOon 09-07-2024 Haptoglobin 121 mg/dL Normal 40-280 [facility] Comment on above: Performed By: #### 0 95802, HAPTO, RF, C3C4A, LD, ENA1, RIBAB, 631363, 611410, RETIC, 396620, CCP, MCRSO, 309281, 400064, ANAIFS #### [place] [address] LABORATORYOrdered By: SYSTEM SYSTEM on 09-07-2024 Complement C4 [Mass/Vol] 12.0 mg/dL Low 16.0 - 38.0 mg/dL AH ADM SS Haptoglobin [Mass/Vol] 121 mg/dL Normal 40 - 280 mg/dL ADM SS Immature reticulocytes/Total reticulocytes (Bld) 0.49 IRF High 0.20 - 0.46 IRF AH Workflow SS LDH Lactate to pyruvate reaction [Catalytic activity/Vol] 279 1 High 120 - 246 U/L AH ADM SS Reticulocytes, Absolute 121.6 103/mcL High 8.0 - 108.0 10^3/mcL AH Workflow SS Reticulocytes, Auto 3.7 % High 0.2 - 2.3 % AH W orkflow SS TPO Ab IA Qn 32 unit/mL Normal 0 - 60 unit/mL AH ADM SS Basophils (Bld) [#/Vol] 0.0 103/mcL Normal 0.0 - 0.3 10^3/mcL AH Workflow SS Basophils/100 WBC (Bld) 0.1 % Normal 0.0 - 2.5 % AH Workflow SS Eosinophils (Bld) [#/Vol] 0.0 103/mcL Normal 0.0 - 0.7 10^3/mcL AH Workflow SS Eosinophils/100 WBC (Bld) 0.0 % Normal 0.0 - 6.0 % AH Workflow SS Erythrocyte distribution width (RBC) [Ratio] 18.1 % High 11.5 - 15.5 % AH Workflow SS Hematocrit (Bld) [Volume fraction] 28.1 % Low 34.0 - 46.0 % AH Workflow SS Hemoglobin (Bld) [Mass/Vol] 8.9 G/dL Low 12.0 - 16.0 G/dL AH Workflow SS Lymphocytes (Bld) [#/Vol] 0.2 103/mcL Low 0.9 - 4.3 10^3/mcL AH Workflow SS Lymphocytes/100 WBC (Bld) 2.6 % Low 20.0 - 40.0 % AH Workflow SS MCH (RBC) [Entitic mass] 26.0 pg Low 27.0 - 33.0 pg AH Workflow SS MCHC 31.7 G/dL Low 32.0 - 36.0 G/dL AH Workflow SS MCV (RBC) [Entitic vol] 82.0 fL Normal 80.0 - 99.0 fL AH Workflow SS Monocytes (Bld) [#/Vol] 0.1 103/mcL Normal 0.1 - 1.4 10^3/mcL AH Workflow SS Monocytes/100 WBC (Bld) 2.3 % Normal 2.0 - 13.0 % AH Workflow SS Neutrophils (Bld) [#/Vol] 5.8 103/mcL Normal 2.3 - 8.1 10^3/mcL AH Workflow SS Neutrophils/100 WBC (Bld) 95.0 % High 50.0 - 75.0 % AH Workflow SS Platelet mean volume (Bld) [Entitic vol] 9.7 fL Normal 6.6 - 10.5 fL AH Workflow SS Platelets (Bld) [#/Vol] 51 103/mcL Low 150 - 450 10^3/mcL AH Workflow SS RBC (Bld) [#/Vol] 3.42 106/mcL Low 4.10 - 5.3 0 10^6/mcL AH Workflow SS WBC (Bld) [#/Vol] 6.2 103/mcL Normal 4.5 - 10.8 10^3/mcL AH Workflow SS LDHon 09-07-2024 LDH 279 U/L High 120-246 [facility] Comment on above: Performed By: #### 0 71878, HAPTO, RF, C3C4A, LD, ENA1, RIBAB, 260028, 207182, RETIC, 741851, CCP, MCRSO, 901244, 047326, ANAIFS #### [address] [address] RETICon 09-07-2024 Immature Retic Fraction 0.49 IRF High 0.20-0.46 [facility] Comment on above: Performed By: #### 0 89565, HAPTO, RF, C3C4A, LD, ENA1, RIBAB, 548154, 765791, RETIC, 970374, CCP, MCRSO, 577725, 622927, ANAIFS #### [address] [address] Reticulocytes, Absolute 121.6 10 3/mcL High 8.0-108.0 [facility] Comment on above: Performed By: #### 0 20755, HAPTO, RF, C3C4A, LD, ENA1, RIBAB, 503275, 209445, RETIC, 296762, CCP, MCRSO, 746090, 782072, ANAIFS #### [address] [address] Reticulocytes, Auto 3.7 % High 0.2-2.3 [facility] Comment on above: Performed By: #### 0 57095, HAPTO, RF, C3C4A, LD, ENA1, RIBAB, 740462, 177313, RETIC, 202033, CCP, MCRSO, 176150, 801036, ANAIFS #### [address] [address] aTPOon 09-07-2024 anti-Thyroid Peroxidase 32 units/ml Normal 0-60 [facility] Comment on above: Performed By: #### 0 55141, HAPTO, RF, C3C4A, LD, ENA1, RIBAB, 874087, 847509, RETIC, 892507, CCP, MCRSO, 990701, 019926, ANAIFS #### [address] [address] ABD Limited w/ Elastographyo n 09-06-2024 ABD Limited w/ Elastography [facility] [address] [place] [address] ABD Limited w/ Elastography MR#: [id number] Acct: [id number] Name: VANNESSA PRESTON Rep #: [id number] : 1955 F 69 From: Umer doyle MD PCP: Dr. Alonzo Covarrubias MD Status: REG CLI Study: ABD Limited w/ Elastography Date of Exam: 08/14 08/06 Exam# [id number] Ordering Dr: Anthony Henry MD PROCEDURE: ABD LIMITED W/ ELASTOGRAPHY REASON FOR EXAM: CIRRHOSIS WITH ASCITES, SPLENOMEGALY COMPARISON: November 22, 2023. TECHNIQUE: Right upper quadrant abdominal ultrasound. Joel ElastQ Imaging shear wave elastography for non- invasive assessment of liver tissue stiffness. Joel EPIQ Elite. FINDINGS: LIVER: Size: Unremarkable Length: 13.3 cm Echotexture: Diffusely echogenic suggesting fatty infiltration Contour: Normal Lesions: None identified Elastography: EQI Med: 24 kPa EQI Med Alvin: 2.81 m/s IQR/Med: 23.5 %* GALLBLADDER: Solitary gallstone measuring 9 mm x 10 mm x 8 mm. This is in the neck of the gallbladder. Gallbladder wall thickening measure 6.5 mm. COMMON BILE DUCT: Normal measuring 5.3 mm. . PANCREAS: Normal Visualized portions of the right kidney are unremarkable. No right upper quadrant ascites. Splenomegaly. The spleen measures 16 cm x 7.3 cm 8.3 cm. US/ABD Limited w/ Elastography IMPRESSION: SEVERE HEPATIC FIBROSIS / CIRRHOSIS Solitary gallstone in the neck of the gallbladder with a thickened gallbladder wall. Splenomegaly. Reference Values: SRU <1.37 m/s (5.7kPa): No to mild fibrosis 1.37 m/s - 2.2 m/s: Moderate to severe fibrosis >2.2 m/s (15kPa): Significant fibrosis / cirrhosis METAVIR Score F2 or higher: 1.34 m/s (5.7kPa) F3 or higher: 1.55 m/s (7.3kPa) F4: 1.80 m/s (10kPa) * If the IQR/Med is >30%, the variance in the measurements is a large and the accuracy of the measurement may be in question. Reading Location: [id number] CC: Dr. Alonzo Covarrubias MD; Dr. Anthony Henry MD Hearing Consultant: Signed Normal [facility] Absolute lymphocyte countOrd ered By: Anthony Henry on 09-06-2024 Lymphocytes Auto (Unsp spec) [#/Vol] 0.27 10*3/uL Low 0.83-4.51 [facility] Absolute neutrophil countOrd ered By: Anthony Henry on 09-06-2024 Neutrophils (Bld) [#/Vol] 6.3 10*3/uL 2.0-7.7 [facility] Anion gap in Serum or Plasma Ordered By: Anthony Henry on 09-06-2024 Anion gap [Moles/Vol] 11 mmol/L - [facility] Automated lymphocyte count a s percentage of total leukocytesOrdered By: Anthony Henry on 09-06-2024 Lymphocytes/100 WBC Auto (Unsp spec) 3.6 % Low 19-41 [facility] BUN/creatinine ratioOrdered By: Anthony Henry on 09-06-2024 Urea nitrogen/Creatinine [Mass ratio] 45.6 mg/mg High 10-20 [facility] Basophil percentageOrdered B y: Anthony Henry on 09-06-2024 Basophils/100 WBC (Bld) 0.1 % 0-1 [facility] Bilirubin, totalOrdered By: Anthony Henry on 09-06-2024 Bilirubin [Mass/Vol] 0.75 mg/dL 0.00-1.30 [facility] CBC W/Diff, Automatedon 08-14 Platelets (Bld) [#/Vol] 55 10*3/uL Low 150-450 [facility] Comment on above: Performed By: #### L 100.0100, L500.4050, L500.4100, L300.3900, L3300.0700, L300.4310 #### [facility] [address] [place], [address] Carbon dioxide, total [Moles /volume] in Central venous bloodOrdered By: Anthony Henry on 09-06-2024 CO2 [Moles/Vol] 22.8 mmol/L 21.0-32.0 [facility] Chloride assayOrdered By: Crystal Henry on 09-06-2024 Chloride [Moles/Vol] 109 mmol/L High 98-108 [facility] Comprehensive Metabolic Prof ilon 09-06-2024 Albumin [Mass/Vol] 3.5 g/dL Normal 3.4-4.8 [facility] Comment on above: Performed By: #### L 100.0100, L500.4050, L500.4100, L300.3900, L3300.0700, L300.4310 #### [facility] [address] [place], [address] Albumin/Globulin [Mass ratio] 1.0 {ratio} Normal 0.9-2.4 [facility] Comment on above: Performed By: #### L 100.0100, L500.4050, L500.4100, L300.3900, L3300.0700, L300.4310 #### [facility] [address] [place], [address] ALK PHOS 122 U/L High 35-104 [facility] Comment on above: Performed By: #### L 100.0100, L500.4050, L500.4100, L300.3900, L3300.0700, L300.4310 #### [facility] [address] [place], [address] ALT [Catalytic activity/Vol] 36 U/L High <=34 [facility] Comment on above: Performed By: #### L 100.0100, L500.4050, L500.4100, L300.3900, L3300.0700, L300.4310 #### [facility] [address] [place], [address] AST [Catalytic activity/Vol] 22 U/L Normal <=31 [facility] Comment on above: Performed By: #### L 100.0100, L500.4050, L500.4100, L300.3900, L3300.0700, L300.4310 #### [facility] [address] [place], [address] Bilirubin [Mass/Vol] 0.75 mg/dL Normal 0.00-1.30 [facility] Comment on above: Performed By: #### L 100.0100, L500.4050, L500.4100, L300.3900, L3300.0700, L300.4310 #### [facility] [address] [place], [address] BUN/CRE 45.6 RATIO High 10-20 [facility] Comment on above: Performed By: #### L 100.0100, L500.4050, L500.4100, L300.3900, L3300.0700, L300.4310 #### [facility] [address] [place], [address] Calcium [Mass/Vol] 8.8 mg/dL Normal 7.6-11.0 [facility] Comment on above: Performed By: #### L 100.0100, L500.4050, L500.4100, L300.3900, L3300.0700, L300.4310 #### [facility] [address] [place], [address] Chloride [Moles/Vol] 109 mmol/L High 98-108 [facility] Comment on above: Performed By: #### L 100.0100, L500.4050, L500.4100, L300.3900, L3300.0700, L300.4310 #### [facility] [address] [place], [place], [id number] (736) CO2 [Moles/Vol] 22.8 mmol/L Normal 21.0-32.0 [facility] Comment on above: Performed By: #### L 100.0100, L500.4050, L500.4100, L300.3900, L3300.0700, L300.4310 #### [facility] [address] [place], [address] Creatinine [Mass/Vol] 0.84 mg/dL Normal 0.70-1.20 [facility] Comment on above: Performed By: #### L 100.0100, L500.4050, L500.4100, L300.3900, L3300.0700, L300.4310 #### [facility] [address] [place], [place], [id number] [phone] [phone] 11 Normal 5-15 [facility] Comment on above: Performed By: #### L 100.0100, L500.4050, L500.4100, L300.3900, L3300.0700, L300.4310 #### [facility] [address] [place], [place], [id number] [phone] GFR/1.73 sq M.predicted among non-blacks MDRD (S/P/Bld) [Vol rate/Area] 76 mL/min/{1.73_m2} Normal >60 [facility] Comment on above: Result Comment: mL/m in/1.73m2 CKD-EPI Creatinine Equation (2020) Performed By: #### L 100.0100, L500.4050, L500.4100, L300.3900, L3300.0700, L300.4310 #### [facility] [address] [place], [address] Globulin (S) [Mass/Vol] 3.5 g/dL Normal 2.2-4.2 [facility] Comment on above: Performed By: #### L 100.0100, L500.4050, L500.4100, L300.3900, L3300.0700, L300.4310 #### [facility] [address] [place], [address] Glucose [Mass/Vol] 90 mg/dL Normal 70-99 [facility] Comment on above: Performed By: #### L 100.0100, L500.4050, L500.4100, L300.3900, L3300.0700, L300.4310 #### [facility] [address] [place], [address] Potassium [Moles/Vol] 3.3 mmol/L Normal 3.3-5.1 [facility] Comment on above: Performed By: #### L 100.0100, L500.4050, L500.4100, L300.3900, L3300.0700, L300.4310 #### [facility] [address] [place], [address] Sodium [Moles/Vol] 143 mmol/L Normal 133-145 [facility] Comment on above: Performed By: #### L 100.0100, L500.4050, L500.4100, L300.3900, L3300.0700, L300.4310 #### [facility] [address] [place], [address] T PROT 7.0 g/dL Normal 5.9-8.4 [facility] Comment on above: Performed By: #### L 100.0100, L500.4050, L500.4100, L300.3900, L3300.0700, L300.4310 #### [facility] [address] [place], [address] Urea nitrogen [Mass/Vol] 38 mg/dL High 4-19 [facility] Comment on above: Performed By: #### L 100.0100, L500.4050, L500.4100, L300.3900, L3300.0700, L300.4310 #### [facility] [address] [place], [address] Eosinophil percentageOrdered By: Anthony Henry on 09-06-2024 Eosinophils/100 WBC (Bld) 0.1 % 0-5 [facility] Erythrocyte distribution wid th ratioOrdered By: Anthonyasmita Henry on 09-06-2024 Erythrocyte distribution width (RBC) [Ratio] 17.3 % High 11.6-14.6 [facility] Erythrocyte distribution wid th standard deviationOrdered By: Anthony Henry on 09-06-2024 Erythrocyte distribution width (RBC) [Ratio] 52.5 fl High 35.1-43.9 [facility] Glomerular filtration rate ( GFR) estimation/1.73 sq m using serum, plasma, or whole bOrdered By: Anthony Henry on 09-06-2024 GFR/1.73 sq M.predicted among non-blacks MDRD (S/P/Bld) [Vol rate/Area] 76 mL/min/{1.73_m2} >60 [facility] Comment on above: mL/min/1.73m2 CKD-EP I Creatinine Equation (2020) Hematocrit Auto (Bld) [Volum e fraction]Ordered By: Anthony Henry on 09-06-2024 Hematocrit (Bld) [Volume fraction] 30.8 % Low 37-47 [facility] Hemoglobin measurementOrdere d By: Anthony Henry on 09-06-2024 Hemoglobin (Bld) [Mass/Vol] 9.3 g/dL Low 12.0-15.0 [facility] Immature granulocytes/100 WB C Auto (Bld)Ordered By: Anthony Henry on 09-06-2024 Immature granulocytes/100 WBC (Bld) 0.900 % 0.0-0.9 [facility] Comment on above: IG% - Immature Granu locytes (promyelocytes, myelocytes and metamyelocytes) > 1% indicates that a LEFT SHIFT is Present. International normalized rat io (INR) calculationOrdered By: Anthony Henry on 09-06-2024 INR Coag (Bld) [Relative time] 1.3 {INR} [facility] - Chemistry and C hemistry - challengeOrdered By: Anthony Henry on 09-06-2024 AST [Catalytic activity/Vol] 22 U/L <32 [facility] MCV (mean corpuscular volume ) determinationOrdered By: Anthony Henry on 09-06-2024 MCV (RBC) [Entitic vol] 87.3 fL 81-99 [facility] Mean corpuscular hemoglobin (MCH) determinationOrdered By: Anthony Henry on 09-06-2024 MCH (RBC) [Entitic mass] 26.3 pg Low 27.0-32.0 [facility] Mean corpuscular hemoglobin concentration (MCHC) determinationOrdered By: Anthony Henry on 09-06-2024 MCHC (RBC) [Mass/Vol] 30.2 g/dL Low 32-36 [facility] Mean platelet volume determi nationOrdered By: Anthony Henry on 09-06-2024 Platelet mean volume (Bld) [Entitic vol] 12.3 fL High 6.2-12.0 [facility] Monocyte percentageOrdered B y: Anthony Henry on 09-06-2024 Monocytes/100 WBC (Bld) 10.2 % High 0-10 [facility] Neutrophil percentageOrdered By: Anthony Henry on 09-06-2024 Neutrophils/100 WBC (Bld) 85.1 % High 47-70 [facility] Nucleated red blood cell per centageOrdered By: Anthony Henry on 09-06-2024 Nucleated RBC/100 WBC (Bld) [Ratio] 0.4 % 0-5 [facility] Platelet countOrdered By: Crystal Henry on 09-06-2024 Platelets (Bld) [#/Vol] 55 10*3/uL Low 150-450 [facility] Potassium measurement (mass/ volume)Ordered By: Anthony Henry on 09-06-2024 Potassium (Unsp spec) [Mass/Vol] 3.3 mmol/L 3.3-5.1 [facility] Prothrombin Time w/INRon INR Coag (PPP) [Relative time] 1.3 {INR} Normal [facility] Comment on above: Performed By: #### L 100.0100, L500.4050, L500.4100, L300.3900, L3300.0700, L300.4310 #### [facility] [address] [place], [place], [id number] PT Coag (PPP) [Time] 16.3 s High 11.7-14.9 [facility] Comment on above: Performed By: #### L 100.0100, L500.4050, L500.4100, L300.3900, L3300.0700, L300.4310 #### [facility] [address] [place], [place], [id number] Prothrombin timeOrdered By: Anthony Henry on 09-06-2024 PT Coag (PPP) [Time] 16.3 s High 11.7-14.9 [facility] RBC Auto (Bld) [#/Vol]Ordere d By: Anthony Henry on 09-06-2024 RBC (Bld) [#/Vol] 3.53 10*6/uL Low 4.2-5.4 [facility] Serum creatinine measurement (mass/volume)Ordered By: Anthony Henry on 09-06-2024 Creatinine [Mass/Vol] 0.84 mg/dL 0.70-1.20 [facility] Serum globulin measurementOr dered By: Anthony Henry on 09-06-2024 Globulin (S) [Mass/Vol] 3.5 g/dL 2.2-4.2 [facility] Serum glucose measurement (m ass/volume)Ordered By: Anthony Henry on 09-06-2024 Glucose [Mass/Vol] 90 mg/dL 70-99 [facility] Serum or plasma alanine kilgore otransferase (ALT) measurementOrdered By: Anthony Henry on 09-06-2024 ALT [Catalytic activity/Vol] 36 U/L High <35 [facility] Serum or plasma albumin diana urement (mass/volume)Ordered By: Anthony Henry on 09-06-2024 Albumin [Mass/Vol] 3.5 g/dL 3.4-4.8 [facility] Serum or plasma albumin/glob ulin mass ratioOrdered By: Anthony Henry on 09-06-2024 Albumin/Globulin [Mass ratio] 1.0 {ratio} 0.9-2.4 [facility] Serum or plasma alkaline clementine sphatase measurementOrdered By: Anthony Henry on 09-06-2024 ALP [Catalytic activity/Vol] 122 U/L High 35-104 [facility] Serum or plasma calcium diana urement (mass/volume)Ordered By: Anthony Henry on 09-06-2024 Calcium [Mass/Vol] 8.8 mg/dL 7.6-11.0 [facility] Serum or plasma urea nitroge n measurement (mass/volume)Ordered By: Anthony Henry on 09-06-2024 Urea nitrogen [Mass/Vol] 38 mg/dL High 4-19 [facility] Sodium levelOrdered By: Andrew Henry on 09-06-2024 Sodium [Moles/Vol] 143 mmol/L 133-145 [facility] Total proteinOrdered By: Anamaria Henry on 09-06-2024 Protein [Mass/Vol] 7.0 g/dL 5.9-8.4 [facility] White blood cell (WBC) count Ordered By: Anthony Henry on 09-06-2024 WBC (Bld) [#/Vol] 7.4 10*3/uL 4.4-11.0 [facility] Anti-Smooth Muscle ABSon ANTISMOOTH MUSC 30 Units Abnormal 0- [facility] Comment on above: Result Comment: Nega tive 0 - 19 Weak positive 20 - 30 Moderate to strong positive >30 Actin Antibodies are found in 52-85% of patients with autoimmune hepatitis or chronic active hepatitis and in 22% of patients with primary biliary cirrhosis. Performed By: #### L 100.0100, L500.4050, L500.4100, L300.3900, L3300.0700, L300.4310 #### [facility] [place], [address] Ceruloplasminon 08-30-2024 CERULOPLASMIN 25.5 mg/dL Normal 19.0-39.0 [facility] Comment on above: Result Comment: Perf ormed at: - [facility] [address] [id number] Linter Tender: Chandler Brock PhD, Phone: [phone] Performed at: - [facility] [address] [id number] Linter Tender: [place] Delong MD, Phone: [phone] Performed By: #### L 100.0100, L500.4050, L500.4100, L300.3900, L3300.0700, L300.4310 #### [facility] [address] [place], [address] Hepatitis Panel Acuteon 08-13 COMMENT Comment Normal . [facility] Comment on above: Result Comment: Not infected with HCV unless early or acute infection is suspected (which may be delayed in an immunocompromised individual), or other evidence exists to indicate HCV infection. Performed By: #### L 100.0100, L500.4050, L500.4100, L300.3900, L3300.0700, L300.4310 #### [facility] [address] [place], [address] HEP B CORE,IgM Negative Normal Negative [facility] Comment on above: Performed By: #### L 100.0100, L500.4050, L500.4100, L300.3900, L3300.0700, L300.4310 #### [facility] [address] [place], [address] HEP B SURF AG Negative Normal Negative [facility] Comment on above: Performed By: #### L 100.0100, L500.4050, L500.4100, L300.3900, L3300.0700, L300.4310 #### [facility] [address] [place], [place], [id number] HEP C VIRUS AB Non-Reactive Normal Non Reactive [facility] Comment on above: Performed By: #### L 100.0100, L500.4050, L500.4100, L300.3900, L3300.0700, L300.4310 #### [facility] [address] [place], [address] HEPATITIS A-IgM Negative Normal Negative [facility] Comment on above: Result Comment: A ne gative anti-HAV IgM result suggests no recent or current HAV infection. Performed By: #### L 100.0100, L500.4050, L500.4100, L300.3900, L3300.0700, L300.4310 #### [facility] [address] [place], [address] CARMELLA + Protein Elect, Serumon 08-30-2024 Albumin [Mass/Vol] 3.1 g/dL Normal 2.9-4.4 [facility] Comment on above: Order Comment: N Performed By: #### L 100.0100, L500.4050, L500.4100, L300.3900, L3300.0700, L300.4310 #### [facility] [address] [place], [address] Albumin/Globulin [Mass ratio] 0.8 {ratio} Normal 0.7-1.7 [facility] Comment on above: Order Comment: N Performed By: #### L 100.0100, L500.4050, L500.4100, L300.3900, L3300.0700, L300.4310 #### [facility] [address] [place], [address] HUDPS-3-PBJQ 0.2 g/dL Normal 0.0-0.4 [facility] Comment on above: Order Comment: N Performed By: #### L 100.0100, L500.4050, L500.4100, L300.3900, L3300.0700, L300.4310 #### [facility] [address] [place], [address] KXPHB-2-UZDP 0.7 g/dL Normal 0.4-1.0 [facility] Comment on above: Order Comment: N Performed By: #### L 100.0100, L500.4050, L500.4100, L300.3900, L3300.0700, L300.4310 #### [facility] [address] [place], [address] BETA GLOBULIN 1.0 g/dL Normal 0.7-1.3 [facility] Comment on above: Order Comment: N Performed By: #### L 100.0100, L500.4050, L500.4100, L300.3900, L3300.0700, L300.4310 #### [facility] [address] [place], [address] GAMMA GLOBULIN 2.5 g/dL High 0.4-1.8 [facility] Comment on above: Order Comment: N Performed By: #### L 100.0100, L500.4050, L500.4100, L300.3900, L3300.0700, L300.4310 #### [facility] [address] [place], [address] Globulin (S) [Mass/Vol] 4.4 g/dL Abnormal 2.2-3.9 [facility] Comment on above: Order Comment: N Performed By: #### L 100.0100, L500.4050, L500.4100, L300.3900, L3300.0700, L300.4310 #### [facility] [address] [place], [address] CARMELLA RESULT,S Comment Normal . [facility] Comment on above: Order Comment: N Result Comment: No m onoclonality detected. Performed By: #### L 100.0100, L500.4050, L500.4100, L300.3900, L3300.0700, L300.4310 #### [facility] [address] [place], [address] IMMUNOGLOB A QN 76 mg/dL Low 87-352 [facility] Comment on above: Order Comment: N Performed By: #### L 100.0100, L500.4050, L500.4100, L300.3900, L3300.0700, L300.4310 #### [facility] [address] [place], [address] IMMUNOGLOB G QN 2801 mg/dL High 586-1602 [facility] Comment on above: Order Comment: N Performed By: #### L 100.0100, L500.4050, L500.4100, L300.3900, L3300.0700, L300.4310 #### [facility] [address] [place], [address] IMMUNOGLOB M QN 98 mg/dL Normal 26-217 [facility] Comment on above: Order Comment: N Performed By: #### L 100.0100, L500.4050, L500.4100, L300.3900, L3300.0700, L300.4310 #### [facility] [address] [place], [address] M-Eric Not Observed Normal Not Observed [facility] Comment on above: Order Comment: N Performed By: #### L 100.0100, L500.4050, L500.4100, L300.3900, L3300.0700, L300.4310 #### [facility] [address] [place], [address] NOTE: Comment Normal . [facility] Comment on above: Order Comment: N Result Comment: Prot ein electrophoresis scan will follow via computer, mail, or [employer] workman delivery. Performed By: #### L 100.0100, L500.4050, L500.4100, L300.3900, L3300.0700, L300.4310 #### [facility] [address] [place], [address] Protein [Mass/Vol] 7.5 g/dL Normal 6.0-8.5 [facility] Comment on above: Order Comment: N Performed By: #### L 100.0100, L500.4050, L500.4100, L300.3900, L3300.0700, L300.4310 #### [facility] [address] [place], [address] Immunoglobulins G/A/M/Donell IMMUNOGLOB E QN 2 IU/mL Low 6-495 [facility] Comment on above: Order Comment: N Performed By: #### L 100.0100, L500.4050, L500.4100, L300.3900, L3300.0700, L300.4310 #### [facility] [address] [place], [address] Anti-Mitochondrial ABon - ANTIMITOCHON AB 189.2 Units Abnormal 0.0-20.0 [facility] Comment on above: Result Comment: Nega tive 0.0 - 20.0 Equivocal 20.1 - 24.9 Positive >24.9 Mitochondrial (M2) Antibodies are found in 90-96% of patients with primary biliary cirrhosis. Performed at: [address] [id number] Linter Tender: Chandler Brock PhD, Phone: [phone] Performed By: #### L 100.0100, L500.4050, L500.4100, L300.3900, L3300.0700, L300.4310 #### [facility] [address] [place], [address] Absolute lymphocyte countOrd ered By: Anthony Henry on 08-25-2024 Lymphocytes Auto (Unsp spec) [#/Vol] 0.22 10*3/uL Low 0.83-4.51 [facility] Absolute neutrophil countOrd ered By: Anthony Henry on 08-25-2024 Neutrophils (Bld) [#/Vol] 3.3 10*3/uL 2.0-7.7 [facility] Albumin Elph [Mass/Vol]Order ed By: Anthony Henry on 08-25-2024 Albumin [Mass/Vol] 3.1 g/dL 2.9-4.4 [facility] Ammoniaon 08-25-2024 Ammonia (P) [Moles/Vol] 18.6 umol/L Normal 11-51 [facility] Comment on above: Performed By: #### L 100.0100, L500.4050, L500.4100, L300.3900, L3300.0700, L300.4310 #### [facility] [address] [place] [address], [address] Anion gap in Serum or Plasma Ordered By: Anthony Henry on 08-25-2024 Anion gap [Moles/Vol] 11 mmol/L 5-15 [facility] Automated lymphocyte count a s percentage of total leukocytesOrdered By: Anthony Henry on 08-25-2024 Lymphocytes/100 WBC Auto (Unsp spec) 5.8 % Low 19-41 [facility] BUN/creatinine ratioOrdered By: Anthony Henry on 08-25-2024 Urea nitrogen/Creatinine [Mass ratio] 33.4 mg/mg High 10-20 [facility] Basophil percentageOrdered B y: Anthony Henry on 08-25-2024 Basophils/100 WBC (Bld) 0.3 % 0-1 [facility] Bilirubin directOrdered By: Anthony Henry on 08-25-2024 Bilirubin.direct [Mass/Vol] 0.39 mg/dL High 0.00-0.30 [facility] Bilirubin, Directon 08-26-19 25 Bilirubin.direct [Mass/Vol] 0.39 mg/dL High 0.00-0.30 [facility] Comment on above: Performed By: #### L 100.0100, L500.4050, L500.4100, L300.3900, L3300.0700, L300.4310 #### [facility] [address] [place], [place], [id number] Bilirubin, totalOrdered By: Anthony Henry on 08-25-2024 Bilirubin [Mass/Vol] 0.79 mg/dL 0.00-1.30 [facility] CBC W/Diff, Automatedon 08-13 Platelets (Bld) [#/Vol] 44 10*3/uL Invalid Interpretation Code 150-450 [facility] Comment on above: Result Comment: CRIT ICAL VALUE CALLED TO SARINA WALLACE 08/25/24 1328 Lori Mahoney. RESULTS READ BACK BY SAME. AMENDED REPORT 08/25/24 1329 PLT previously reported as: 44 *L K/mm3 Performed By: #### L 100.0100, L500.4050, L500.4100, L300.3900, L3300.0700, L300.4310 #### [facility] [address] [place], [place], [id number] CRPon 08-25-2024 C-REACTIVE PROT 23.70 mg/L High 0.0-3.0 [facility] Comment on above: Performed By: #### L 100.0100, L500.4050, L500.4100, L300.3900, L3300.0700, L300.4310 #### [facility] [address] [place], [place], [id number] Calculated very low density lipoprotein (VLDL) cholesterol measurementOrdered By: Anthony Henry on 08-25-2024 Calculated very low density lipoprotein (VLDL) cholesterol measurement 30 mg/dL 5-40 [facility] Carbon dioxide, total [Moles /volume] in Central venous bloodOrdered By: Anthony Henry on 08-25-2024 CO2 [Moles/Vol] 21.3 mmol/L 21.0-32.0 [facility] Chloride assayOrdered By: Crystal Henry on 08-25-2024 Chloride [Moles/Vol] 104 mmol/L 98-108 [facility] Comprehensive Metabolic Prof ilon 08-25-2024 Albumin [Mass/Vol] 3.5 g/dL Normal 3.4-4.8 [facility] Comment on above: Performed By: #### L 100.0100, L500.4050, L500.4100, L300.3900, L3300.0700, L300.4310 #### [facility] [address] [place], [address] Albumin/Globulin [Mass ratio] 0.8 {ratio} Low 0.9-2.4 [facility] Comment on above: Performed By: #### L 100.0100, L500.4050, L500.4100, L300.3900, L3300.0700, L300.4310 #### [facility] [address] [place], [address] ALK PHOS 175 U/L High 35-104 [facility] Comment on above: Performed By: #### L 100.0100, L500.4050, L500.4100, L300.3900, L3300.0700, L300.4310 #### [facility] [address] [place], [address] ALT [Catalytic activity/Vol] 38 U/L High <=34 [facility] Comment on above: Performed By: #### L 100.0100, L500.4050, L500.4100, L300.3900, L3300.0700, L300.4310 #### [facility] [address] [place], [address] AST [Catalytic activity/Vol] 36 U/L High <=31 [facility] Comment on above: Performed By: #### L 100.0100, L500.4050, L500.4100, L300.3900, L3300.0700, L300.4310 #### [facility] [address] [place], [address] Bilirubin [Mass/Vol] 0.79 mg/dL Normal 0.00-1.30 [facility] Comment on above: Performed By: #### L 100.0100, L500.4050, L500.4100, L300.3900, L3300.0700, L300.4310 #### [facility] [address] [place], [address] BUN/CRE 33.4 RATIO High 10-20 [facility] Comment on above: Performed By: #### L 100.0100, L500.4050, L500.4100, L300.3900, L3300.0700, L300.4310 #### [facility] [address] [place], [address] Calcium [Mass/Vol] 8.8 mg/dL Normal 7.6-11.0 [facility] Comment on above: Performed By: #### L 100.0100, L500.4050, L500.4100, L300.3900, L3300.0700, L300.4310 #### [facility] [address] [place], [address] Chloride [Moles/Vol] 104 mmol/L Normal 98-108 [facility] Comment on above: Performed By: #### L 100.0100, L500.4050, L500.4100, L300.3900, L3300.0700, L300.4310 #### [facility] [address] [place], [address] CO2 [Moles/Vol] 21.3 mmol/L Normal 21.0-32.0 [facility] Comment on above: Performed By: #### L 100.0100, L500.4050, L500.4100, L300.3900, L3300.0700, L300.4310 #### [facility] [address] [place], [address] Creatinine [Mass/Vol] 0.80 mg/dL Normal 0.70-1.20 [facility] Comment on above: Performed By: #### L 100.0100, L500.4050, L500.4100, L300.3900, L3300.0700, L300.4310 #### [facility] [address] [place], [address] GAP 11 Normal 5-15 [facility] Comment on above: Performed By: #### L 100.0100, L500.4050, L500.4100, L300.3900, L3300.0700, L300.4310 #### [facility] [address] [place], [address] GFR/1.73 sq M.predicted among non-blacks MDRD (S/P/Bld) [Vol rate/Area] 81 mL/min/{1.73_m2} Normal >60 [facility] Comment on above: Result Comment: mL/m in/1.73m2 CKD-EPI Creatinine Equation (2020) Performed By: #### L 100.0100, L500.4050, L500.4100, L300.3900, L3300.0700, L300.4310 #### [facility] [address] [place], [address] Globulin (S) [Mass/Vol] 4.1 g/dL Normal 2.2-4.2 [facility] Comment on above: Performed By: #### L 100.0100, L500.4050, L500.4100, L300.3900, L3300.0700, L300.4310 #### [facility] [address] [place], [address] Glucose [Mass/Vol] 107 mg/dL High 70-99 [facility] Comment on above: Performed By: #### L 100.0100, L500.4050, L500.4100, L300.3900, L3300.0700, L300.4310 #### [facility] [address] [place], [address] Potassium [Moles/Vol] 4.1 mmol/L Normal 3.3-5.1 [facility] Comment on above: Performed By: #### L 100.0100, L500.4050, L500.4100, L300.3900, L3300.0700, L300.4310 #### [facility] [address] [place], [address] Sodium [Moles/Vol] 136 mmol/L Normal 133-145 [facility] Comment on above: Performed By: #### L 100.0100, L500.4050, L500.4100, L300.3900, L3300.0700, L300.4310 #### [facility] [address] [place], [address] T PROT 7.6 g/dL Normal 5.9-8.4 [facility] Comment on above: Performed By: #### L 100.0100, L500.4050, L500.4100, L300.3900, L3300.0700, L300.4310 #### [facility] [address] [place], [address] Urea nitrogen [Mass/Vol] 27 mg/dL High 4-19 [facility] Comment on above: Performed By: #### L 100.0100, L500.4050, L500.4100, L300.3900, L3300.0700, L300.4310 #### [facility] [address] [place], [address] Eosinophil percentageOrdered By: Anthony Henry on 08-25-2024 Eosinophils/100 WBC (Bld) 0.0 % 0-5 [facility] Erythrocyte distribution wid th ratioOrdered By: Anthony Henry on 08-25-2024 Erythrocyte distribution width (RBC) [Ratio] 16.4 % High 11.6-14.6 [facility] Erythrocyte distribution wid th standard deviationOrdered By: Anthony Henry on 08-25-2024 Erythrocyte distribution width (RBC) [Ratio] 50.4 fl High 35.1-43.9 [facility] Ferritinon 08-25-2024 Ferritin [Mass/Vol] 76 ng/mL Normal 22-378 [facility] Comment on above: Performed By: #### L 100.0100, L500.4050, L500.4100, L300.3900, L3300.0700, L300.4310 #### [facility] [address] [place], [address] Gastroenterology Visit Repor ton 08-25-2024 Gastroenterology Visit Report [facility] [address] [place] [address] OFFICE VISIT Date of Service: 08/25/24 MR#: [id number] Acct: [id number] Name: VANNESSA PRESTON Rep #: [id number] : 1955 Provider: Dr. Anthony merlos MD Age/Sex: 69/F Location: [facility] [email or web address] Status: Signed with Addenda ADDENDUM by Dr. Anthony Henry MD on 08/25/24 at 1125 HPI Details: VANNESSA PRESTON, is a 69 F who presents to the office today for Addendum CPT socre 7(no encephalopathy -8 (grade 1-2 encephalopathy), class B. 08/25/24 1125 Date Anthony Henry MD cc: Dr. Alonzo Covarrubias MD * Signed Intake Vital Signs 11/28/22 08:03 08/25/24 09:54 Height 4 ft 10 in 4 ft 10 in Weight: 119 lb BMI 24.8 BP 136/83 H Blood Pressure Location Rt brachial Position Sitting Pulse 82 Pulse Oximetry (%) 98 Oxygen Delivery Method room air Intake Visit Reasons: Establish Care Chief Complaint: Cirrhosis Allergies Sulfa (Sulfonamide Antibiotics) Allergy (Severe, Verified 08/25/24 09:44) Swelling Medications ???Medication ???Instructions ???Recorded ???Confirmed ???Type calcium 500 mg (as 1 tab PO BIDCM supplement #60 tabs 09/23/18 08/25/24 Rx carbonate)-vitamin D3 5 mcg (200 unit) tablet ferrous sulfate 325 mg (65 mg 325 mg PO BIDCM supplement #60 tab s 09/23/18 12/03/22 Rx iron) tablet spironolactone 25 mg tablet 25 mg PO BID diuretic #60 tabs 03/0208/25/24 Rx carvedilol 6.25 mg tablet 6.25 mg PO BID blood pressure 06/0408/25/24 History ezetimibe 10 mg tablet 10 mg PO DAILY 07/15/22 08/25/24 H istory glipizide 5 mg tablet 5 mg PO DAILY diabetes 07/15/22 History prednisone 5 mg tablet 5 mg PO DAILY inflammation 3 08/25/24 History sucralfate 1 gram tablet 1 g PO 1HR_ACHS 30 days #90 tabs 0 11/29/22 12/03/22 Rx pantoprazole 40 mg tablet,delayed 40 mg PO BID 30 days #60 tabs 08/25/24 Rx release (Protonix) Have you fallen in the past year?: No PFSH Medical History History of immunosuppression therapy History of steroid therapy Post-menopausal Ulcer Hoarseness High cholesterol History of stress test Anemia Hypothyroidism Rheumatoid arthritis Osteoporosis GI bleed Hepatitis Former smoker Non-smoker Irregular heart beat Hypertension Surgical History History of esophagogastroduodenoscop y (EGD) History of cataract surgery H/O section Family History Other Diabetes Heart disease Social History Smoking Status: Former smoker HPI HPI Chief Complaint: Cirrhosis Details: VANNESSA PRESTON, is a 69 F who presents to the office today for initial consult for Cirrhosis. Previously seeing Dr. Yancey. Dx with cirrhosis 3 years ago. States intermittent swelling in lower legs. Denies abdominal pain, dizziness, confusion, itching or trouble with bowel movements. US Abd 9.9.24- Liver measures 13.4cm Liver elastography 10.30.24- Stiffness 18 kPa EGD 4.28.25- Esophageal varices 4.7.25- MELDna 7 LUQ pain/discomfort 2 weeks ago. This has subsided last 1 to 2 weeks. She attributes this pain or discomfort to splenomegaly. She also has rheumatoid arthritis and bone deformity of hand associated with osteoporosis. EGD by Dr. Yancey on 07/02/2024 with 4 banding. Z-line at 33 cm with varices grade 3-4 and distal esophagus. His stomach was hyperemic, duodenum unremarkable. Postprocedure she developed low blood pressure and called Dr. Chappell office but did not get response back therefore she came to see us Past history Patient stated she has been seeing Dr. Stevens for 25 years. Diagnosed with cirrhosis about 3 to 5 years ago. She stated she has autoimmune hepatitis and rheumatoid arthritis and SLE and she was on azathioprine along with prednisone. She self discontinued azathioprine about 2 to 3 years ago She was started on prednisone the same time about 23 to 24 [address] ago[address] saw Dr[address] Govea virtually during COVID time prior when she herself had COVID infection. She never saw Dr. Govea in person. Her previous labs and imaging reviewed as history of elevated transaminases and alkaline phosphatase. She also has ascites noticed on ultrasound. She has pancytopenia and platelet count ranges about 50,000. Social history: She was drinking alcohol for about 2 to 3 years during late teen age and quit in early 21. She had also tried smoking in high school but never been a smoker. Family history: Denies family history or doctor did not diagnose AIH in father mother brother sister. Her mother connelly (more content not included)... Normal [facility] Glomerular filtration rate ( GFR) estimation/1.73 sq m using serum, plasma, or whole bOrdered By: Anthony Henry on 08-25-2024 GFR/1.73 sq M.predicted among non-blacks MDRD (S/P/Bld) [Vol rate/Area] 81 mL/min/{1.73_m2} >60 [facility] Comment on above: mL/min/1.73m2 CKD-EP I Creatinine Equation (2020) Hematocrit Auto (Bld) [Volum e fraction]Ordered By: Anthony Henry on 08-25-2024 Hematocrit (Bld) [Volume fraction] 36.6 % Low 37-47 [facility] Hemoglobin A1con 08-25-2024 HbA1c (Bld) [Mass fraction] 7.4 % High <=5.6 [facility] Comment on above: Result Comment: Norm al < 5.7 % Prediabetic 5.7 - 6.4 % Diabetic >or= 6.5 % Please note range changes. Performed By: #### L 100.0100, L500.4050, L500.4100, L300.3900, L3300.0700, L300.4310 #### [facility] [address] [place], [address] Hemoglobin A1c percentageOrd ered By: Anthony Henry on 08-25-2024 HbA1c (Bld) [Mass fraction] 7.4 % High <5.7 [facility] Comment on above: Normal < 5.7 % Predi abetic 5.7 - 6.4 % Diabetic >or= 6.5 % Please note range changes. Hemoglobin measurementOrdere d By: Anthony Henry on 08-25-2024 Hemoglobin (Bld) [Mass/Vol] 11.4 g/dL Low 12.0-15.0 [facility] IgEOrdered By: Anthony Henry on 08-25-2024 IgE 2 IU/mL Low 6-495 [facility] Immature granulocytes/100 WB C Auto (Bld)Ordered By: Anthony Henry on 08-25-2024 Immature granulocytes/100 WBC (Bld) 1.100 % High 0.0-0.9 [facility] Comment on above: IG% - Immature Granu locytes (promyelocytes, myelocytes and metamyelocytes) > 1% indicates that a LEFT SHIFT is Present. International normalized rat io (INR) calculationOrdered By: Anthony Henry on 08-25-2024 INR Coag (Bld) [Relative time] 1.2 {INR} [facility] Interpretation of serum or p lasma protein pattern by immunofixation (narrative resultOrdered By: Anthony Henry on 08-25-2024 Protein Fractions Immunofixation Bruce [Interp] Not Observed g/dL Not Observed [facility] Iron measurement (mass/mass) Ordered By: Anthony Henry on 08-25-2024 Iron (Unsp spec) [Mass/Mass] 48 ug/dL Low 50-170 [facility] Iron+Iron Binding Capacityon 08-25-2024 Iron [Mass/Vol] 48 ug/dL Low 50-170 [facility] Comment on above: Performed By: #### L 100.0100, L500.4050, L500.4100, L300.3900, L3300.0700, L300.4310 #### [facility] [address] [place], [address] IRON SATURATION 17.0 Normal 13-59 [facility] Comment on above: Performed By: #### L 100.0100, L500.4050, L500.4100, L300.3900, L3300.0700, L300.4310 #### [facility] [address] [place], [address] TIBC 286 ug/dL Normal 250-450 [facility] Comment on above: Performed By: #### L 100.0100, L500.4050, L500.4100, L300.3900, L3300.0700, L300.4310 #### [facility] [address] [place], [address] UIBC 238 ug/dL Normal 228-428 [facility] Comment on above: Performed By: #### L 100.0100, L500.4050, L500.4100, L300.3900, L3300.0700, L300.4310 #### [facility] [address] [place], [address] LDL calc ser/plasOrdered By: Anthony Henry on 08-25-2024 Cholesterol in LDL [Mass/Vol] 130 mg/dL [facility] Comment on above: Lqadxvyccx=018-998 m g/dL & Higher Uopw=981 mg/dL or greater Laboratory - Chemistry and C hemistry - challengeOrdered By: Anthony Henry on 08-25-2024 AST [Catalytic activity/Vol] 36 U/L High <32 [facility] Lipid Profileon 08-25-2024 CHOL:HDL 5.56 Normal [facility] Comment on above: Performed By: #### L 100.0100, L500.4050, L500.4100, L300.3900, L3300.0700, L300.4310 #### [facility] [address] [place], [address] Cholesterol [Mass/Vol] 195 mg/dL Normal <=200 [facility] Comment on above: Result Comment: Chol esterol level, Desirable <200 mg/dL Borderline high cholesterol 200-239 mg/dL High cholesterol >=240 mg/dL Recommendations of the NCEP Adult Treatment Panel for the following risk-cutoff thresholds for the [place] population. Performed By: #### L 100.0100, L500.4050, L500.4100, L300.3900, L3300.0700, L300.4310 #### [facility] [address] [place], [address] Cholesterol in HDL [Mass/Vol] 35 mg/dL Low [facility] Comment on above: Result Comment: Lorie onal Cholesterol Education Program (NCEP) guidelines: <40 mg/dL: Low HDL-cholesterol (major risk factor for CHD) >= 60 mg/dL: High HDL-cholesterol (negative risk factor for CHD) HDL-cholesterol is affected by a number of factors, e.g. smoking, exercise, hormones, sex and age. Performed By: #### L 100.0100, L500.4050, L500.4100, L300.3900, L3300.0700, L300.4310 #### [facility] [address] [place], [address] Cholesterol in LDL [Mass/Vol] 130 mg/dL Normal [facility] Comment on above: Result Comment: Bord nylnls=002-551 mg/dL Higher Imtj=386 mg/dL or greater Performed By: #### L 100.0100, L500.4050, L500.4100, L300.3900, L3300.0700, L300.4310 #### [facility] [address] [place], [address] Cholesterol in VLDL [Mass/Vol] 30 mg/dL Normal 5-40 [facility] Comment on above: Performed By: #### L 100.0100, L500.4050, L500.4100, L300.3900, L3300.0700, L300.4310 #### [facility] [address] [place], [address] Triglyceride [Mass/Vol] 152 mg/dL Normal [facility] Comment on above: Result Comment: The drugs N-Acetylcysteine and Metamizole may falsely depress this assay. Normal range: <150 mg/dL Borderline High: 150-199 mg/dL High: 200-499 mg/dL Very High: >500 mg/dL Performed By: #### L 100.0100, L500.4050, L500.4100, L300.3900, L3300.0700, L300.4310 #### [facility] [address] [place], [address] MCV (mean corpuscular volume ) determinationOrdered By: Anthony Henry on 08-25-2024 MCV (RBC) [Entitic vol] 83.9 fL 81-99 [facility] Mean corpuscular hemoglobin (MCH) determinationOrdered By: Anthony Henry on 08-25-2024 MCH (RBC) [Entitic mass] 26.1 pg Low 27.0-32.0 [facility] Mean corpuscular hemoglobin concentration (MCHC) determinationOrdered By: Anthony Henry on 08-25-2024 MCHC (RBC) [Mass/Vol] 31.1 g/dL Low 32-36 [facility] Mean platelet volume determi nationOrdered By: Anthony Henry on 08-25-2024 Mean platelet volume determination TNP [facility] Comment on above: Test not performed Monocyte percentageOrdered B y: Anthony Henry on 08-25-2024 Monocytes/100 WBC (Bld) 5.6 % 0-10 [facility] Neutrophil percentageOrdered By: Anthony Henry on 08-25-2024 Neutrophils/100 WBC (Bld) 87.2 % High 47-70 [facility] No Panel InformationOrdered By: Anhtony Henry on 08-25-2024 Addendum Document Comment . [facility] Comment on above: Protein electrophore sis scan will follow via computer,mail, or gang plank workman delivery. Hepatitis C Antibody Comment Comment . [facility] Comment on above: Not infected with HC V unless early or acute infection issuspected (which may be delayed in an immunocompromisedindividual), or other evidence exists to indicate HCVinfection. Unsaturated Iron Binding Capacity 238 ug/dL 228-428 [facility] Nucleated red blood cell per centageOrdered By: Anthony Henry on 08-25-2024 Nucleated RBC/100 WBC (Bld) [Ratio] 0 % 0-5 [facility] Platelet countOrdered By: Crystal Henry on 08-25-2024 Platelets (Bld) [#/Vol] 44 10*3/uL Low 150-450 [facility] Comment on above: CRITICAL VALUE BARNES D TO SARINA WALLACE08/25/24 1328 Lori Mahoney.RESULTS READ BACK BY SAME. Previous reported result: 44 [id number] by: FERNANDA on 08/25/24:1329 AMENDED REPORT 08/25/24 1329 PLT previously reported as: 44 *L K/mm3 Platelet estimateOrdered By: Anthony Henry on 08-25-2024 Platelets LM Ql (Bld) MKD DEC ADEQ [facility] Potassium measurement (mass/ volume)Ordered By: Anthony Henry on 08-25-2024 Potassium (Unsp spec) [Mass/Vol] 4.1 mmol/L 3.3-5.1 [facility] Prothrombin Time w/INRon INR Coag (PPP) [Relative time] 1.2 {INR} Normal [facility] Comment on above: Performed By: #### L 100.0100, L500.4050, L500.4100, L300.3900, L3300.0700, L300.4310 #### [facility] [address] [place], [address] PT Coag (PPP) [Time] 15.5 s High 11.7-14.9 [facility] Comment on above: Performed By: #### L 100.0100, L500.4050, L500.4100, L300.3900, L3300.0700, L300.4310 #### [facility] [address] [place], [place], [address] Prothrombin timeOrdered By: Anthony Henry on 08-25-2024 PT Coag (PPP) [Time] 15.5 s High 11.7-14.9 [facility] RBC Auto (Bld) [#/Vol]Ordere d By: Anthony Henry on 08-25-2024 RBC (Bld) [#/Vol] 4.36 10*6/uL 4.2-5.4 [facility] Screening total cholesterol/ high density lipoprotein (HDL) cholesterol ratioOrdered By: Atnhony Henry on 08-25-2024 Cholesterol.total/Chol esterol in HDL [Mass ratio] 5.56 {ratio} [facility] Serum creatinine measurement (mass/volume)Ordered By: Anthony Henry on 08-25-2024 Creatinine [Mass/Vol] 0.80 mg/dL 0.70-1.20 [facility] Serum globulin measurement ( mass/volume)Ordered By: Anthony Henry on 08-25-2024 Globulin (S) [Mass/Vol] 4.4 g/dL High 2.2-3.9 [facility] Serum glucose measurement (m ass/volume)Ordered By: Anthony Henry on 08-25-2024 Glucose [Mass/Vol] 107 mg/dL High 70-99 [facility] Serum mitochondria antibody detectionOrdered By: Anthony Henry on 08-25-2024 Mitochondria Ab Ql (S) 189.2 Units High 0.0-20.0 [facility] Comment on above: Negative 0.0 - 20.0 Equivocal 20.1 - 24.9 Positive >24.9Mitochondrial (M2) Antibodies are found in 90-96% ofpatients with primary biliary cirrhosis.Performed at: [facility] [address] [id number] Director: Chandler Brock PhD, Phone: [phone] Serum or plasma C reactive p rotein measurement (mass/volume)Ordered By: Anthony Henry on 08-25-2024 CRP [Mass/Vol] 23.70 mg/L High 0.0-3.0 [facility] Serum or plasma IgA measurem ent (mass/volume)Ordered By: Anthony Henry on 08-25-2024 IgA [Mass/Vol] 76 mg/dL Low 87-352 [facility] Serum or plasma IgG measurem ent (mass/volume)Ordered By: Anthony Henry on 08-25-2024 IgG [Mass/Vol] 2801 mg/dL High 586-1602 [facility] Serum or plasma actin IgG an tibody assay (units/volume)Ordered By: Anthony Henry on 08-25-2024 Actin IgG Qn 30 Units High 0-19 [facility] Comment on above: Negative 0 - 19 Weak positive 20 - 30 Moderate to strong positive >30 Actin Antibodies are found in 52-85% of patients with autoimmune hepatitis or chronic active hepatitis and in 22% of patients with primary biliary cirrhosis. Serum or plasma alanine kilgore otransferase (ALT) measurementOrdered By: Anthony Henry on 08-25-2024 ALT [Catalytic activity/Vol] 38 U/L High <35 [facility] Serum or plasma albumin diana urement (mass/volume)Ordered By: Anthony Henry on 08-25-2024 Albumin [Mass/Vol] 3.5 g/dL 3.4-4.8 [facility] Serum or plasma albumin/glob ulin mass ratioOrdered By: Anthony Henry on 08-25-2024 Albumin/Globulin [Mass ratio] 0.8 {ratio} Low 0.9-2.4 [facility] Serum or plasma alkaline clementine sphatase measurementOrdered By: Anthony Henry on 06-13-2025 ALP [Catalytic activity/Vol] 175 U/L High 35-104 [facility] Serum or plasma alpha 1 glob ulin measurement by electrophoresis (mass/volume)Ordered By: Anthony Henry on 08-25-2024 Alpha 1 globulin Elph [Mass/Vol] 0.2 g/dL 0.0-0.4 [facility] Alpha 1 globulin Elph [Mass/Vol] 0.7 g/dL 0.4-1.0 [facility] Serum or plasma beta globuli n measurement by electrophoresis (mass/volume)Ordered By: Anthony Henry on 08-25-2024 Beta globulin Elph [Mass/Vol] 1.0 g/dL 0.7-1.3 [facility] Serum or plasma calcium diana urement (mass/volume)Ordered By: Anthony Henry 08-25-2024 Calcium [Mass/Vol] 8.8 mg/dL 7.6-11.0 [facility] Serum or plasma cholesterol in HDL measurement (mass/volume)Ordered By: Anthony Henry on 08-25-2024 Cholesterol in HDL [Mass/Vol] 35 mg/dL Low >40 [facility] Comment on above: National Cholesterol Education Program (NCEP) guidelines:<40 mg/dL: Low HDL-cholesterol (major risk factor for CHD)>= 60 mg/dL: High HDL-cholesterol (negative risk factor for CHD)HDL-cholesterol is affected by a number of factors, e.g. smoking, exercise, hormones, sex and age. Serum or plasma cholesterol measurement (mass/volume)Ordered By: Anthony Henry 08-25-2024 Cholesterol [Mass/Vol] 195 mg/dL <201 [facility] Comment on above: Cholesterol level, D esirable <200 mg/dLBorderline high cholesterol 200-239 mg/dLHigh cholesterol >=240 mg/dLRecommendations of the NCEP Adult Treatment Panel for the following risk-cutoff thresholds for the [place] population. Serum or plasma ferritin chepe surement (mass/volume)Ordered By: Anthony Henry on 08-25-2024 Ferritin [Mass/Vol] 76 ng/mL 22-378 [facility] Serum or plasma gamma globul in measurement by electrophoresis (mass/volume)Ordered By: Anthony Henry on 06-13-2025 Gamma globulin Elph [Mass/Vol] 2.5 g/dL High 0.4-1.8 [facility] Serum or plasma hepatitis B virus surface antigen detection by immunoassayOrdered By: Anthony Henry on 08-25-2024 HBV surface Ag IA Ql Negative Negative [facility] Serum or plasma immunoelectr ophoresis interpretation (nominal result)Ordered By: Anthony Henry on 08-25-2024 Interpretation IEP [Interp] Comment . [facility] Comment on above: No monoclonality det ected. Serum or plasma iron saturat ion measurement (mass fraction)Ordered By: Anthony Henry on 08-25-2024 Iron saturation [Mass fraction] 17.0 % 13-59 [facility] Serum or plasma protein diana urement (mass/volume)Ordered By: Anthony Henry on 08-25-2024 Protein [Mass/Vol] 7.5 g/dL 6.0-8.5 [facility] Serum or plasma urea nitroge n measurement (mass/volume)Ordered By: Anthony Henry on 08-25-2024 Urea nitrogen [Mass/Vol] 27 mg/dL High 4-19 [facility] Sodium levelOrdered By: Andrew Henry on 08-25-2024 Sodium [Moles/Vol] 136 mmol/L 133-145 [facility] TSH DL <= 0.005 mIU/L QnOrde red By: Anthony Henry on 08-25-2024 TSH Qn 4.040 uIU/mL 0.300-4.200 [facility] Thyroid Stim Hormone (TSH)on 08-25-2024 TSH 4.040 uIU/mL Normal 0.300-4.200 [facility] Comment on above: Performed By: #### L 100.0100, L500.4050, L500.4100, L300.3900, L3300.0700, L300.4310 #### [facility] [address] [place], [address] Total proteinOrdered By: Anamaria Henry on 08-25-2024 Protein [Mass/Vol] 7.6 g/dL 5.9-8.4 [facility] Triglycerides measurementOrd ered By: Anthony Henry on 08-25-2024 Triglyceride [Mass/Vol] 152 mg/dL <199 [facility] Comment on above: The drugs N-Acetylcy steine and Metamizole may falsely depress this assay. Normal range: <150 mg/dLBorderline High: 150-199 mg/dLHigh: 200-499 mg/dLVery High: >500 mg/dL Venous blood ammonia measure mentOrdered By: Anthony Henry on 08-25-2024 Ammonia (P) [Moles/Vol] 18.6 umol/L 11-51 [facility] Vitamin B12on 08-25-2024 Cobalamin (Vitamin B12) [Mass/Vol] 763 pg/mL Normal 180-914 [facility] Comment on above: Performed By: #### L 100.0100, L500.4050, L500.4100, L300.3900, L3300.0700, L300.4310 #### [facility] [address] [place], [place], [id number] Vitamin B12 ser/plasOrdered By: Anthony Henry on 08-25-2024 Cobalamin (Vitamin B12) [Mass/Vol] 763 pg/mL 180-914 [facility] Vitamin D,25 Hydroxyon 08-25 Vitamin D 25-OH 35.9 ng/mL Normal 30-100 [facility] Comment on above: Result Comment: Marti min D Status Deficiency: <20 ng/mL (50nmol/L) Insufficiency: 20-30 ng/mL (50-75 nmol/L) Sufficiency: 30-100 ng/mL (75-250 nmol/L) Toxicity: >100 ng/mL (>250 nmol/L) Performed By: #### L 100.0100, L500.4050, L500.4100, L300.3900, L3300.0700, L300.4310 #### [facility] [address] [place], [place], [address] White blood cell (WBC) count Ordered By: Anthony Henry on 08-25-2024 WBC (Bld) [#/Vol] 3.8 10*3/uL Low 4.4-11.0 [facility] LABORATORYOrdered By: Vibhadayron Gutierrez on 07-10-2024 Glucose [Mass/Vol] 89 mg/dL Normal 82 - 115 mg/dL [facility] Work Phone: CBC W/Diff, Automatedon 06-13 PATH REV Reviewed Normal [facility] Comment on above: Order Comment: CRITI GAMALIEL VALUE CALLED TO KARON LEACHMUKESH06/05/24 153Fredo Val Calzada.RESULTS READ BACK BY SAME. Result Comment: SEE REPORT IN PATIENT'S EMR AMENDED REPORT 06/27/24 1533 PATH REV previously reported as: July Performed By: #### L 100.0100, L500.4050, L500.4100, L300.3900, L3300.0700, L300.4310 #### [facility] [address] [place], [address] Erythrocyte Sed Rateon 06-27 SED RATE 21 mm/hr Normal 0-30 [facility] Comment on above: Order Comment: CRITI GAMALIEL VALUE CALLED TO KARON LEACHMUKESH06/05/24 1531 Val Calzada.RESULTS READ BACK BY SAME. Result Comment: SEE REPORT IN PATIENTS REPORT SEE REPORT IN PATIENTS EMR AMENDED REPORT 06/27/24 1545 SED RATE previously reported as: 21 mm/hr Performed By: #### L 100.0100, L500.4050, L500.4100, L300.3900, L3300.0700, L300.4310 #### [facility] [address] [place], [address] AFP, Tumor Markeron 06-22-19 AFP TUMOR GERHARD < 1.8 Normal 0.0-9.2 [facility] Comment on above: Order Comment: Becky ated platelets Result Comment: [employer] Electrochemiluminescence Immunoassay (ECLIA) Values obtained with different assay methods or kits cannot be used interchangeably. Results cannot be interpreted as absolute evidence of the presence or absence of malignant disease. This test is not interpretable in females. Performed at: [address], [place], [place] [id number] Linter Tender: Chandler Brock PhD, Phone: [phone] Performed By: #### L 100.0100, L500.4050, L500.4100, L300.3900, L3300.0700, L300.4310 #### [facility] [place], [address] Absolute lymphocyte countOrd ered By: Alonzo Covarrubias on 06-19-2024 Lymphocytes Auto (Unsp spec) [#/Vol] 0.15 10*3/uL Low 0.83-4.51 [facility] Absolute neutrophil countOrd ered By: Alonzo Covarrubias on 06-19-2024 Neutrophils (Bld) [#/Vol] 3.0 10*3/uL 2.0-7.7 [facility] Activated partial thrombopla stin time (aPTT) in platelet poor plasma by coagulation aOrdered By: Alonzo Covarrubias on 06-19-2024 aPTT Coag (PPP) [Time] 23.9 s Low 24.1-36.2 [facility] Alpha fetoprotein measuremen t as tumor markerOrdered By: Alonzo Covarrubias on 06-19-2024 Tumor Marker Alpha Fetoprotein < 1.8 ng/mL 0.0-9.2 [facility] Comment on above: [facility] El ectrochemiluminescence Immunoassay(ECLIA)Values obtained with different assay methods or kits cannotbe used interchangeably. Results cannot be interpreted asabsolute evidence of the presence or absence of malignantdisease.This test is not interpretable in females.Performed at: [place] [id number] [place], [place] [id number] Director: Chandler Brock PhD, Phone: [phone] Anion gap in Serum or Plasma Ordered By: Alonzo Covarrubias on 06-19-2024 Anion gap [Moles/Vol] 12 mmol/L 5-15 [facility] Automated lymphocyte count a s percentage of total leukocytesOrdered By: Alonzo Covarrubias on 06-19-2024 Lymphocytes/100 WBC Auto (Unsp spec) 4.5 % Low 19-41 [facility] BUN/creatinine ratioOrdered By: Alonzo Covarrubias on 06-19-2024 Urea nitrogen/Creatinine [Mass ratio] 24.5 mg/mg High 10-20 [facility] Basophil percentageOrdered B y: Alonzo Covarrubias on 06-19-2024 Basophils/100 WBC (Bld) 0.3 % 0-1 [facility] Bilirubin, totalOrdered By: Alonzo Covarrubias on 06-19-2024 Bilirubin [Mass/Vol] 0.64 mg/dL 0.00-1.30 [facility] CBC W/Diff, Automatedon 04-0 MPV TNP Normal 6.2-12.0 [facility] Comment on above: Order Comment: Inter face Comments:elevated plateletsOrder Date: 04/14/24Order Info: 0184-1 - CBCDComments: elevated platelets Performed By: #### L 100.0100, L500.4050, L500.4100, L300.3900, L3300.0700, L300.4310 #### [facility] [address] [place], [place], [id number] Absolute Lymph 0.15 X10 3/uL Low 0.83-4.51 [facility] Comment on above: Order Comment: Inter face Comments:elevated plateletsOrder Date: 04/14/24Order Info: 0184-1 - CBCDComments: elevated platelets Performed By: #### L 100.0100, L500.4050, L500.4100, L300.3900, L3300.0700, L300.4310 #### [facility] [address] [place], [place], [phone] Absolute Neut 3.0 X10 3/uL Normal 2.0-7.7 [facility] Comment on above: Order Comment: Inter face Comments:elevated plateletsOrder Date: 04/14/24Order Info: 0184-1 - CBCDComments: elevated platelets Performed By: #### L 100.0100, L500.4050, L500.4100, L300.3900, L3300.0700, L300.4310 #### [facility] [address] [place], [address] Basophils/100 WBC (Bld) 0.3 % Normal 0-1 [facility] Comment on above: Order Comment: Inter face Comments:elevated plateletsOrder Date: 04/14/24Order Info: 01806-13 - CBCDComments: elevated platelets Performed By: #### L 100.0100, L500.4050, L500.4100, L300.3900, L3300.0700, L300.4310 #### [facility] [address] [place], [address] Eosinophils/100 WBC (Bld) 0.0 % Normal 0-5 [facility] Comment on above: Order Comment: Inter face Comments:elevated plateletsOrder Date: 04/14/24Order Info: 183-03 - CBCDComments: elevated platelets Performed By: #### L 100.0100, L500.4050, L500.4100, L300.3900, L3300.0700, L300.4310 #### [facility] [address] [place], [address] Erythrocyte distribution width (RBC) [Ratio] 16.9 % High 11.6-14.6 [facility] Comment on above: Order Comment: Inter face Comments:elevated plateletsOrder Date: 04/14/24Order Info: 01806-13 - CBCDComments: elevated platelets Performed By: #### L 100.0100, L500.4050, L500.4100, L300.3900, L3300.0700, L300.4310 #### [facility] [address] [place], [address] Hematocrit (Bld) [Volume fraction] 39.4 % Normal 37-47 [facility] Comment on above: Order Comment: Inter face Comments:elevated plateletsOrder Date: 04/14/24Order Info: 01806-13 - CBCDComments: elevated platelets Performed By: #### L 100.0100, L500.4050, L500.4100, L300.3900, L3300.0700, L300.4310 #### [facility] [address] [place], [address] Hemoglobin (Bld) [Mass/Vol] 12.2 g/dL Normal 12.0-15.0 [facility] Comment on above: Order Comment: Inter face Comments:elevated plateletsOrder Date: 04/14/24Order Info: 0184-1 - CBCDComments: elevated platelets Performed By: #### L 100.0100, L500.4050, L500.4100, L300.3900, L3300.0700, L300.4310 #### [facility] [address] [place], [address] IG% 1.200 High 0.0-0.9 [facility] Comment on above: Order Comment: Inter face Comments:elevated plateletsOrder Date: 04/14/24Order Info: 0184- - CBCDComments: elevated platelets Result Comment: IG% - Immature Granulocytes (promyelocytes, myelocytes and metamyelocytes) > 1% indicates that a LEFT SHIFT is Present. Performed By: #### L 100.0100, L500.4050, L500.4100, L300.3900, L3300.0700, L300.4310 #### [facility] [address] [place], [address] Lymphocytes/100 WBC (Bld) 4.5 % Low 19-41 [facility] Comment on above: Order Comment: Inter face Comments:elevated plateletsOrder Date: 04/14/24Order Info: 0184-1 - CBCDComments: elevated platelets Performed By: #### L 100.0100, L500.4050, L500.4100, L300.3900, L3300.0700, L300.4310 #### [facility] [address] [place], [address] MCH (RBC) [Entitic mass] 26.1 pg Low 27.0-32.0 [facility] Comment on above: Order Comment: Inter face Comments:elevated plateletsOrder Date: 04/14/24Order Info: 183-03 - CBCDComments: elevated platelets Performed By: #### L 100.0100, L500.4050, L500.4100, L300.3900, L3300.0700, L300.4310 #### [facility] [address] [place], [address] MCHC (RBC) [Mass/Vol] 31.0 g/dL Low 32-36 [facility] Comment on above: Order Comment: Inter face Comments:elevated plateletsOrder Date: 04/14/24Order Info: 183-03 - CBCDComments: elevated platelets Performed By: #### L 100.0100, L500.4050, L500.4100, L300.3900, L3300.0700, L300.4310 #### [facility] [address] [place], [address] MCV (RBC) [Entitic vol] 84.2 fL Normal 81-99 [facility] Comment on above: Order Comment: Inter face Comments:elevated plateletsOrder Date: 04/14/24Order Info: 183-03 - CBCDComments: elevated platelets Performed By: #### L 100.0100, L500.4050, L500.4100, L300.3900, L3300.0700, L300.4310 #### [facility] [address] [place], [address] Monocytes/100 WBC (Bld) 4.2 % Normal 0-10 [facility] Comment on above: Order Comment: Inter face Comments:elevated plateletsOrder Date: 04/14/24Order Info: 01806-13 - CBCDComments: elevated platelets Performed By: #### L 100.0100, L500.4050, L500.4100, L300.3900, L3300.0700, L300.4310 #### [facility] [address] [place], [address] Neutrophils/100 WBC (Bld) 89.8 % High 47-70 [facility] Comment on above: Order Comment: Inter face Comments:elevated plateletsOrder Date: 04/14/24Order Info: 018- - CBCDComments: elevated platelets Performed By: #### L 100.0100, L500.4050, L500.4100, L300.3900, L3300.0700, L300.4310 #### [facility] [address] [place], [address] Nucleated RBC (Bld) [#/Vol] 0 10*3/uL Normal 0-5 [facility] Comment on above: Order Comment: Inter face Comments:elevated plateletsOrder Date: 04/14/24Order Info: 01806-13 - CBCDComments: elevated platelets Performed By: #### L 100.0100, L500.4050, L500.4100, L300.3900, L3300.0700, L300.4310 #### [facility] [address] [place], [address] Platelets (Bld) [#/Vol] 52 10*3/uL Low 150-450 [facility] Comment on above: Order Comment: Inter face Comments:elevated plateletsOrder Date: 04/14/24Order Info: 018- - CBCDComments: elevated platelets Performed By: #### L 100.0100, L500.4050, L500.4100, L300.3900, L3300.0700, L300.4310 #### [facility] [address] [place], [address] RBC (Bld) [#/Vol] 4.68 10*6/uL Normal 4.2-5.4 [facility] Comment on above: Order Comment: Inter face Comments:elevated plateletsOrder Date: 04/14/24Order Info: 018- - CBCDComments: elevated platelets Performed By: #### L 100.0100, L500.4050, L500.4100, L300.3900, L3300.0700, L300.4310 #### [facility] [address] [place], [address] RDW SD 51.3 fl High 35.1-43.9 [facility] Comment on above: Order Comment: Inter face Comments:elevated plateletsOrder Date: 04/14/24Order Info: 0184-1 - CBCDComments: elevated platelets Performed By: #### L 100.0100, L500.4050, L500.4100, L300.3900, L3300.0700, L300.4310 #### [facility] [address] [place], [address] WBC (Bld) [#/Vol] 3.3 10*3/uL Low 4.4-11.0 [facility] Comment on above: Order Comment: Inter face Comments:elevated plateletsOrder Date: 04/14/24Order Info: 0184-1 - CBCDComments: elevated platelets Performed By: #### L 100.0100, L500.4050, L500.4100, L300.3900, L3300.0700, L300.4310 #### [facility] [address] [place], [address] Carbon dioxide, total [Moles /volume] in Central venous bloodOrdered By: Alonzo Covarrubias on 06-19-2024 CO2 [Moles/Vol] 21.7 mmol/L 21.0-32.0 [facility] Chloride assayOrdered By: Ruthie Covarrubias on 06-19-2024 Chloride [Moles/Vol] 102 mmol/L 98-108 [facility] Comprehensive Metabolic Prof ilon 06-19-2024 Albumin [Mass/Vol] 3.5 g/dL Normal 3.4-4.8 [facility] Comment on above: Order Comment: Order Date: 04/17/24 Order Info: 0786-1 - CMP Order Info: 3016-3 - TSH DR. COVARRUBIAS GETS RESULTS FROM TSH AND CMP GETS RESULTS FOR CBCD CMP PT,PTT,AFP elevated platelets Performed By: #### L 500.4050 #### [facility] [address] [place], [place], [address] Albumin/Globulin [Mass ratio] 0.8 {ratio} Low 0.9-2.4 [facility] Comment on above: Order Comment: Order Date: 04/17/24 Order Info: 0786- - CMP Order Info: 3015-05 - TSH DR. COVARRUBIAS GETS RESULTS FROM TSH AND CMP GETS RESULTS FOR CBCD CMP PT,PTT,AFP elevated platelets Performed By: #### L 500.4050 #### [facility] [address] [place], [place], [id number] ALK PHOS 177 U/L High 35-104 [facility] Comment on above: Order Comment: Order Date: 04/17/24 Order Info: 07 - CMP Order Info: 3015-05 - TSH DR. COVARRUBIAS GETS RESULTS FROM TSH AND CMP GETS RESULTS FOR CBCD CMP PT,PTT,AFP elevated platelets Performed By: #### L 500.4050 #### [facility] [address] [place], [place], [address] ALT [Catalytic activity/Vol] 41 U/L High <=34 [facility] Comment on above: Order Comment: Order Date: 04/17/24 Order Info: 0786 - CMP Order Info: 3015-05 - TSH DR. COVARRUBIAS GETS RESULTS FROM TSH AND CMP GETS RESULTS FOR CBCD CMP PT,PTT,AFP elevated platelets Performed By: #### L 500.4050 #### [facility] [address] [place], [address] AST [Catalytic activity/Vol] 31 U/L Normal <=31 [facility] Comment on above: Order Comment: Order Date: 04/17/24 Order Info: 0786 - CMP Order Info: 3015-05 - TSH DR. COVARRUBIAS GETS RESULTS FROM TSH AND CMP GETS RESULTS FOR CBCD CMP PT,PTT,AFP elevated platelets Performed By: #### L 500.4050 #### [facility] [address] [place], [address] Bilirubin [Mass/Vol] 0.64 mg/dL Normal 0.00-1.30 [facility] Comment on above: Order Comment: Order Date: 04/17/24 Order Info: 0786-1 - CMP Order Info: 3016-3 - TSH DR. COVARRUBIAS GETS RESULTS FROM TSH AND CMP GETS RESULTS FOR CBCD CMP PT,PTT,AFP elevated platelets Performed By: #### L 500.4050 #### [facility] [address] [place], [address] BUN/CRE 24.5 RATIO High 10-20 [facility] Comment on above: Order Comment: Order Date: 04/17/24 Order Info: 0786- - CMP Order Info: 30108-15 - TSH DR. COVARRUBIAS GETS RESULTS FROM TSH AND CMP GETS RESULTS FOR CBCD CMP PT,PTT,AFP elevated platelets Performed By: #### L 500.4050 #### [facility] [address] [place], [address] Calcium [Mass/Vol] 9.1 mg/dL Normal 7.6-11.0 [facility] Comment on above: Order Comment: Order Date: 04/17/24 Order Info: 0786- - CMP Order Info: 30108-15 - TSH DR. COVARRUBIAS GETS RESULTS FROM TSH AND CMP GETS RESULTS FOR CBCD CMP PT,PTT,AFP elevated platelets Performed By: #### L 500.4050 #### [facility] [address] [place], [address] Chloride [Moles/Vol] 102 mmol/L Normal 98-108 [facility] Comment on above: Order Comment: Order Date: 04/17/24 Order Info: 0786- - CMP Order Info: 30108-15 - TSH DR. COVARRUBIAS GETS RESULTS FROM TSH AND CMP GETS RESULTS FOR CBCD CMP PT,PTT,AFP elevated platelets Performed By: #### L 500.4050 #### [facility] [address] [place], [place], [id number] CO2 [Moles/Vol] 21.7 mmol/L Normal 21.0-32.0 [facility] Comment on above: Order Comment: Order Date: 04/17/24 Order Info: 0786- - CMP Order Info: 30108-15 - TSH DR. COVARRUBIAS GETS RESULTS FROM TSH AND CMP GETS RESULTS FOR CBCD CMP PT,PTT,AFP elevated platelets Performed By: #### L 500.4050 #### [facility] [address] [place], [place], [id number] Creatinine [Mass/Vol] 0.94 mg/dL Normal 0.70-1.20 [facility] Comment on above: Order Comment: Order Date: 04/17/24 Order Info: 07 - CMP Order Info: 3015-05 - TSH DR. COVARRUBIAS GETS RESULTS FROM TSH AND CMP GETS RESULTS FOR CBCD CMP PT,PTT,AFP elevated platelets Performed By: #### L 500.4050 #### [facility] [address] [place], [address] GAP 12 Normal 5-15 [facility] Comment on above: Order Comment: Order Date: 04/17/24 Order Info: 0786- - CMP Order Info: 3015-05 - TSH DR. COVARRUBIAS GETS RESULTS FROM TSH AND CMP GETS RESULTS FOR CBCD CMP PT,PTT,AFP elevated platelets Performed By: #### L 500.4050 #### [facility] [address] [facility] [place], [place], [id number] GFR/1.73 sq M.predicted among non-blacks MDRD (S/P/Bld) [Vol rate/Area] 67 mL/min/{1.73_m2} Normal >60 [facility] Comment on above: Order Comment: Order Date: 04/17/24 Order Info: 0786-1 - CMP Order Info: 3015-05 - TSH DR. COVARRUBIAS GETS RESULTS FROM TSH AND CMP GETS RESULTS FOR CBCD CMP PT,PTT,AFP elevated platelets Result Comment: mL/m in/1.73m2 CKD-EPI Creatinine Equation (2020) Performed By: #### L 500.4050 #### [facility] [address] [place], [address] Globulin (S) [Mass/Vol] 4.5 g/dL High 2.2-4.2 [facility] Comment on above: Order Comment: Order Date: 04/17/24 Order Info: 785-03 - CMP Order Info: 3015-05 - TSH DR. COVARRUBIAS GETS RESULTS FROM TSH AND CMP GETS RESULTS FOR CBCD CMP PT,PTT,AFP elevated platelets Performed By: #### L 500.4050 #### [facility] [address] [place], [address] Glucose [Mass/Vol] 181 mg/dL High 70-99 [facility] Comment on above: Order Comment: Order Date: 04/17/24 Order Info: 785-03 - CMP Order Info: 3015-05 - TSH DR. COVARRUBIAS GETS RESULTS FROM TSH AND CMP GETS RESULTS FOR CBCD CMP PT,PTT,AFP elevated platelets Performed By: #### L 500.4050 #### [facility] [address] [place], [address] Potassium [Moles/Vol] 4.9 mmol/L Normal 3.3-5.1 [facility] Comment on above: Order Comment: Order Date: 04/17/24 Order Info: 07 - CMP Order Info: 3015-05 - TSH DR. COVARRUBIAS GETS RESULTS FROM TSH AND CMP GETS RESULTS FOR CBCD CMP PT,PTT,AFP elevated platelets Performed By: #### L 500.4050 #### [facility] [address] [facility] [facility] [place], [address] Sodium [Moles/Vol] 136 mmol/L Normal 133-145 [facility] Comment on above: Order Comment: Order Date: 04/17/24 Order Info: 0786 - CMP Order Info: 3015-05 - TSH DR. COVARRUBIAS GETS RESULTS FROM TSH AND CMP GETS RESULTS FOR CBCD CMP PT,PTT,AFP elevated platelets Performed By: #### L 500.4050 #### [facility] [address] [place], [place], [id number] T PROT 8.1 g/dL Normal 5.9-8.4 [facility] Comment on above: Order Comment: Order Date: 04/17/24 Order Info: 0786-1 - CMP Order Info: 3016-3 - TSH DR. COVARRUBIAS GETS RESULTS FROM TSH AND CMP GETS RESULTS FOR CBCD CMP PT,PTT,AFP elevated platelets Performed By: #### L 500.4050 #### [facility] [address] [place], [place], [id number] Urea nitrogen [Mass/Vol] 23 mg/dL High 4-19 [facility] Comment on above: Order Comment: Order Date: 04/17/24 Order Info: 0786-1 - CMP Order Info: 3016-3 - TSH DR. COVARRUBIAS GETS RESULTS FROM TSH AND CMP GETS RESULTS FOR CBCD CMP PT,PTT,AFP elevated platelets Performed By: #### L 500.4050 #### [facility] [address] [facility] [address] [place], [place], [id number] Eosinophil percentageOrdered By: Alonzo Covarrubias on 06-19-2024 Eosinophils/100 WBC (Bld) 0.0 % 0-5 [facility] Erythrocyte distribution wid th (RBC) [Ratio]Ordered By: Alonzo Covarrubias on 06-19-2024 Erythrocyte distribution width (RBC) [Entitic vol] 51.3 fL High 35.1-43.9 [facility] Erythrocyte distribution wid th ratioOrdered By: Alonzo Covarrubias on 06-19-2024 Erythrocyte distribution width (RBC) [Ratio] 16.9 % High 11.6-14.6 [facility] Erythrocyte distribution wid th standard deviationOrdered By: Alonzo Covarrubias on 06-19-2024 Erythrocyte distribution width (RBC) [Ratio] 51.3 fl High 35.1-43.9 [facility] GFR/1.73 sq M.predicted og g non-blacks MDRD (S/P/Bld) [Vol rate/Area]Ordered By: Alonzo Covarrubias on 06-19-2024 Estimated GFR (MDRD) Non-Af Amer 67 >60 [facility] Comment on above: mL/min/1.73m2 CKD-EP I Creatinine Equation (2020) Glomerular filtration rate ( GFR) estimation/1.73 sq m using serum, plasma, or whole bOrdered By: Alonzo Covarrubias on 06-19-2024 GFR/1.73 sq M.predicted among non-blacks MDRD (S/P/Bld) [Vol rate/Area] 67 mL/min/{1.73_m2} >60 [facility] Comment on above: mL/min/1.73m2 CKD-EP I Creatinine Equation (2020) Hematocrit Auto (Bld) [Volum e fraction]Ordered By: Alonzo Covarrubias on 06-19-2024 Hematocrit (Bld) [Volume fraction] 39.4 % 37-47 [facility] Hemoglobin measurementOrdere d By: Alonzo Covarrubias on 06-19-2024 Hemoglobin (Bld) [Mass/Vol] 12.2 g/dL 12.0-15.0 [facility] Immature granulocytes/100 WB C Auto (Bld)Ordered By: Alonzo Covarrubias on 06-19-2024 Immature granulocytes/100 WBC (Bld) 1.200 % High 0.0-0.9 [facility] Comment on above: IG% - Immature Granu locytes (promyelocytes, myelocytes and metamyelocytes) > 1% indicates that a LEFT SHIFT is Present. International normalized rat io (INR) calculationOrdered By: Alonzo Covarrubias on 06-19-2024 INR Coag (Bld) [Relative time] 1.1 {INR} [facility] - Chemistry and C hemistry - challengeOrdered By: Alonzo Covarrubias on 06-19-2024 AST [Catalytic activity/Vol] 31 U/L <32 [facility] Lymphocytes Auto (Unsp spec) [#/Vol]Ordered By: Alonzo Covarrubias on 06-19-2024 Lymphocytes (Bld) [#/Vol] 0.15 10*3/uL Low 0.83-4.51 [facility] Lymphocytes/100 WBC Auto (Un sp spec)Ordered By: Alonzo Covarrubias on 06-19-2024 Lymphocytes/100 WBC (Bld) 4.5 % Low 19-41 [facility] MCV (mean corpuscular volume ) determinationOrdered By: Alonzo Covarrubias on 06-19-2024 MCV (RBC) [Entitic vol] 84.2 fL 81-99 [facility] Mean corpuscular hemoglobin (MCH) determinationOrdered By: Alonzo Covarrubias on 06-19-2024 MCH (RBC) [Entitic mass] 26.1 pg Low 27.0-32.0 [facility] Mean corpuscular hemoglobin concentration (MCHC) determinationOrdered By: Alonzo Covarrubias on 06-19-2024 MCHC (RBC) [Mass/Vol] 31.0 g/dL Low 32-36 [facility] Mean platelet volume determi nationOrdered By: Alonzo Covarrubias on 06-19-2024 [facility] Comment on above: Test not performed Mean platelet volume determination [facility] Comment on above: Test not performed Monocyte percentageOrdered B y: Alonzo Covarrubias on 06-19-2024 Monocytes/100 WBC (Bld) 4.2 % 0-10 [facility] Neutrophil percentageOrdered By: Alonzo Covarrubias on 06-19-2024 Neutrophils/100 WBC (Bld) 89.8 % High 47-70 [facility] Nucleated red blood cell per centageOrdered By: Alonzo Covarrubias on 06-19-2024 Nucleated RBC/100 WBC (Bld) [Ratio] 0 % 0-5 [facility] Partial Thromboplast Timeon 06-19-2024 aPTT Coag (Bld) [Time] 23.9 s Low 24.1-36.2 [facility] Comment on above: Performed By: #### L 100.0100, L500.4050, L500.4100, L300.3900, L3300.0700, L300.4310 #### [facility] [address] [place], [address] Platelet countOrdered By: Ruthie Covarrubias on 06-19-2024 Platelets (Bld) [#/Vol] 52 10*3/uL Low 150-450 [facility] Potassium (Unsp spec) [Mass/ Vol]Ordered By: Alonzo Covarrubias on 06-19-2024 Potassium [Moles/Vol] 4.9 mmol/L 3.3-5.1 [facility] Potassium measurement (mass/ volume)Ordered By: Alonzo Covarrubias on 06-19-2024 Potassium (Unsp spec) [Mass/Vol] 4.9 mmol/L 3.3-5.1 [facility] Prothrombin Time w/INRon INR Coag (PPP) [Relative time] 1.1 {INR} Normal [facility] Comment on above: Performed By: #### L 100.0100, L500.4050, L500.4100, L300.3900, L3300.0700, L300.4310 #### [facility] [address] [place], [place], [phone] (209) PT Coag (PPP) [Time] 14.9 s Normal 11.7-14.9 [facility] Comment on above: Performed By: #### L 100.0100, L500.4050, L500.4100, L300.3900, L3300.0700, L300.4310 #### [facility] [address] [place], [place], [id number] [phone] Prothrombin timeOrdered By: Alonzo Covarrubias on 06-19-2024 PT Coag (PPP) [Time] 14.9 s 11.7-14.9 [facility] RBC Auto (Bld) [#/Vol]Ordere d By: Alonzo Covarrubias on 06-19-2024 RBC (Bld) [#/Vol] 4.68 10*6/uL 4.2-5.4 [facility] Serum creatinine measurement (mass/volume)Ordered By: Alonzo Covarrubias on 06-19-2024 Creatinine [Mass/Vol] 0.94 mg/dL 0.70-1.20 [facility] Serum globulin measurementOr dered By: Alonzo Covarrubias on 06-19-2024 Globulin (S) [Mass/Vol] 4.5 g/dL High 2.2-4.2 [facility] Serum glucose measurement (m ass/volume)Ordered By: Alonzo Covarrubias on 06-19-2024 Glucose [Mass/Vol] 181 mg/dL High 70-99 [facility] Serum or plasma alanine kilgore otransferase (ALT) measurementOrdered By: Alonzo Covarrubias on 06-19-2024 ALT [Catalytic activity/Vol] 41 U/L High <35 [facility] Serum or plasma albumin diana urement (mass/volume)Ordered By: Alonzo Covarrubias on 06-19-2024 Albumin [Mass/Vol] 3.5 g/dL 3.4-4.8 [facility] Serum or plasma albumin/glob ulin mass ratioOrdered By: Alonzo Covarrubias on 06-19-2024 Albumin/Globulin [Mass ratio] 0.8 {ratio} Low 0.9-2.4 [facility] Serum or plasma alkaline clementine sphatase measurementOrdered By: Alonzo Covarrubias on 06-19-2024 ALP [Catalytic activity/Vol] 177 U/L High 35-104 [facility] Serum or plasma calcium diana urement (mass/volume)Ordered By: Alonzo Covarrubias on 06-19-2024 Calcium [Mass/Vol] 9.1 mg/dL 7.6-11.0 [facility] Serum or plasma urea nitroge n measurement (mass/volume)Ordered By: Alonzo Covarrubias on 06-19-2024 Urea nitrogen [Mass/Vol] 23 mg/dL High 4-19 [facility] Sodium levelOrdered By: Frank Covarrubias on 06-19-2024 Sodium [Moles/Vol] 136 mmol/L 133-145 [facility] TSH DL <= 0.005 mIU/L QnOrde red By: Alonzo Covarrubias on 06-19-2024 Thyroid Stimulating Hormone (TSH) 1.830 uIU/mL 0.300-4.200 [facility] TSH Qn 1.830 uIU/mL 0.300-4.200 [facility] Thyroid Stim Hormone (TSH)on 06-19-2024 TSH 1.830 uIU/mL Normal 0.300-4.200 [facility] Comment on above: Order Comment: Order Date: 04/17/24 Order Info: [id number] - CMP Order Info: [id number] - TSH DR. COVARRUBIAS GETS RESULTS FROM TSH AND CMP GETS RESULTS FOR CBCD CMP PT,PTT,AFP Performed By: #### L [id number] #### [facility] [address] [place], [address] Total proteinOrdered By: Jane Covarrubias on 06-19-2024 Protein [Mass/Vol] 8.1 g/dL 5.9-8.4 [facility] White blood cell (WBC) count Ordered By: Alonzo Covarrubias on 06-19-2024 WBC (Bld) [#/Vol] 3.3 10*3/uL Low 4.4-11.0 [facility] aPTT Coag (PPP) [Time]Ordere d By: Alonzo Covarrubias on 06-19-2024 aPTT Coag (Bld) [Time] 23.9 s Low 24.1-36.2 [facility] Anti-dsDNA Abon 06-07-2024 ANTI-DNA (DS)AB 1 IU/mL Normal 0-9 [facility] Comment on above: Result Comment: Nega tive <5 Equivocal 5 - 9 Positive >9 Performed at: [facility] [id number] Linter Tender: Chandler Brock PhD, Phone: [phone] Performed By: #### L 100.0100, L500.4050, L500.4100, L300.3900, L3300.0700, L300.4310 #### [facility] [address] [place], [address] Complement C3on 06-07-2024 COMP C3 119 mg/dL Normal 82-167 [facility] Comment on above: Result Comment: Perf ormed at: [facility] [employer] [id number] Linter Tender: Chandler Brock PhD, Phone: [phone] Performed By: #### L 100.0100, L500.4050, L500.4100, L300.3900, L3300.0700, L300.4310 #### [facility] [address] [place], [place], [id number] Complement C4on 06-07-2024 COMPLEMENT, C4 14 mg/dL Normal 12-38 [facility] Comment on above: Performed By: #### L 100.0100, L500.4050, L500.4100, L300.3900, L3300.0700, L300.4310 #### [facility] [address] [place], [address] CRPon 06-06-2024 C-REACTIVE PROT 18.40 mg/L High 0.0-3.0 [facility] Comment on above: Performed By: #### L 100.0100, L500.4050, L500.4100, L300.3900, L3300.0700, L300.4310 #### [facility] [address] [place], [place], [id number] AST(SGOT)on 06-05-2024 AST [Catalytic activity/Vol] 35 U/L High <=31 [facility] Comment on above: Performed By: #### L 100.0100, L500.4050, L500.4100, L300.3900, L3300.0700, L300.4310 #### [facility] [address] [place], [place], [id number] Absolute lymphocyte countOrd ered By: TOYIN PACHECO on 06-05-2024 Lymphocytes Auto (Unsp spec) [#/Vol] 0.25 10*3/uL Low 0.83-4.51 [facility] Absolute neutrophil countOrd ered By: TOYIN PACHECO on 06-05-2024 Neutrophils (Bld) [#/Vol] 3.3 10*3/uL 2.0-7.7 [facility] Alanine Aminotransferas (SGP T)on 06-05-2024 ALT [Catalytic activity/Vol] 39 U/L High <=34 [facility] Comment on above: Performed By: #### L 100.0100, L500.4050, L500.4100, L300.3900, L3300.0700, L300.4310 #### [facility] [address] [place], [place], [address] Automated lymphocyte count a s percentage of total leukocytesOrdered By: TOYIN PACHECO on 06-05-2024 Lymphocytes/100 WBC Auto (Unsp spec) 6.3 % Low 19-41 [facility] BUNon 06-05-2024 Urea nitrogen [Mass/Vol] 25 mg/dL High 4-19 [facility] Comment on above: Performed By: #### L 100.0100, L500.4050, L500.4100, L300.3900, L3300.0700, L300.4310 #### [facility] [address] [place], [place], [address] Basophil percentageOrdered B y: TOYIN PACHECO on 06-05-2024 Basophils/100 WBC (Bld) 0.3 % 0-1 [facility] Bilirubin Test strip Ql (U)O rdered By: TOYIN PACHECO on 06-05-2024 Bilirubin Ql (U) Negative Negative [facility] Blood polychromasia detectio n by light microscopyOrdered By: TOYIN PACHECO on 06-05-2024 Polychromasia LM Ql (Bld) 1+ [facility] CRP [Mass/Vol]Ordered By: RA OSIEL PACHECO on 06-05-2024 C-Reactive Protein Extended Range 18.40 mg/L High 0.0-3.0 [facility] Complement C3 assayOrdered B y: TOYIN PACHECO on 06-05-2024 Complement C3 119 mg/dL 82-167 [facility] Comment on above: Performed at: [facility] [address] [id number] Director: Chandler Brock PhD, Phone: [phone] Complement C4 [Mass/Vol]Orde red By: TOYIN PACHECO on 06-05-2024 Complement C4 14 mg/dL 12-38 [facility] DNA double strand Ab Qn (S)O rdered By: TOYIN PACHECO on 06-05-2024 Anti-Double Strand DNA Antibody 1 IU/mL 0-9 [facility] Comment on above: Negative <5 Equivoca l 5 - 9 Positive >9Performed at: - [facility] [id number] [place], [place] [id number] Director: Chandler Brock PhD, Phone: [phone] Eosinophil percentageOrdered By: TOYIN PACHECO on 06-05-2024 Eosinophils/100 WBC (Bld) 0.0 % 0-5 [facility] Epithelial cells.squamous LM Ql (Urine sed)Ordered By: TOYIN PACHECO on 06-05-2024 Epithelial cells.squamous LM.HPF (Urine sed) [#/Area] 0 /[HPF] 5-10 [facility] Erythrocyte distribution wid th ratioOrdered By: TOYIN PACHECO on 06-05-2024 Erythrocyte distribution width (RBC) [Ratio] 16.0 % High 11.6-14.6 [facility] Erythrocyte distribution wid th standard deviationOrdered By: TOYIN PACHECO on 06-05-2024 Erythrocyte distribution width (RBC) [Entitic vol] 49.8 fL High 35.1-43.9 [facility] Erythrocyte distribution width (RBC) [Ratio] 49.8 fl High 35.1-43.9 [facility] Erythrocyte sedimentation ra teOrdered By: TOYIN PACHECO on 06-05-2024 ESR (Bld) [Velocity] 21 mm/h 0-30 [facility] Comment on above: SEE REPORT IN PATIEN TS REPORTPrevious reported result: 21 mm/hrEdited by: CYNTHIA on 06/27/24:1545SEE REPORT IN PATIENTS EMR AMENDED REPORT 06/27/24 1545 SED RATE previously reported as: 21 mm/hr GFR/1.73 sq M.predicted og g non-blacks MDRD (S/P/Bld) [Vol rate/Area]Ordered By: TOYIN PACHECO on 06-05-2024 Estimated GFR (MDRD) Non-Af Amer 72 >60 [facility] Comment on above: mL/min/1.73m2 CKD-EP I Creatinine Equation (2020) Glomerular filtration rate ( GFR) estimation/1.73 sq m using serum, plasma, or whole bOrdered By: TOYIN PACHECO on 06-05-2024 GFR/1.73 sq M.predicted among non-blacks MDRD (S/P/Bld) [Vol rate/Area] 72 mL/min/{1.73_m2} >60 [facility] Comment on above: mL/min/1.73m2 CKD-EP I Creatinine Equation (2020) Glucose Ql (U)Ordered By: RA OSIEL PACHECO on 06-05-2024 Glucose (U) [Mass/Vol] 50 mg/dL High Normal [facility] Hematocrit Auto (Bld) [Volum e fraction]Ordered By: TOYIN PACHECO on 06-05-2024 Hematocrit (Bld) [Volume fraction] 38.5 % 37-47 [facility] Hemoglobin measurementOrdere d By: TOYIN PACHECO on 06-05-2024 Hemoglobin (Bld) [Mass/Vol] 11.7 g/dL Low 12.0-15.0 [facility] Immature granulocytes/100 WB C Auto (Bld)Ordered By: TOYIN PACHECO on 06-05-2024 Immature granulocytes/100 WBC (Bld) 1.000 % High 0.0-0.9 [facility] Comment on above: IG% - Immature Granu locytes (promyelocytes, myelocytes and metamyelocytes) > 1% indicates that a LEFT SHIFT is Present. Ketones Test strip Ql (U)Ord ered By: TOYIN PACHECO on 06-05-2024 Ketones Ql (U) Negative Negative [facility] Laboratory - Chemistry and C hemistry - challengeOrdered By: TOYIN PACHECO on 06-05-2024 AST [Catalytic activity/Vol] 35 U/L High <32 [facility] Lymphocytes Auto (Unsp spec) [#/Vol]Ordered By: TOYIN PACHECO on 06-05-2024 Lymphocytes (Bld) [#/Vol] 0.25 10*3/uL Low 0.83-4.51 [facility] Lymphocytes/100 WBC Auto (Un sp spec)Ordered By: TOYIN PACHECO on 06-05-2024 Lymphocytes/100 WBC (Bld) 6.3 % Low 19-41 [facility] MCV (mean corpuscular volume ) determinationOrdered By: TOYIN PACHECO on 06-05-2024 MCV (RBC) [Entitic vol] 85.2 fL 81-99 [facility] Mean corpuscular hemoglobin (MCH) determinationOrdered By: TOYIN PACHECO on 06-05-2024 MCH (RBC) [Entitic mass] 25.9 pg Low 27.0-32.0 [facility] Mean corpuscular hemoglobin concentration (MCHC) determinationOrdered By: TOYIN PACHECO on 06-05-2024 MCHC (RBC) [Mass/Vol] 30.4 g/dL Low 32-36 [facility] Microscopic analysis of urin e for red blood cells (RBC)Ordered By: TOYIN PACHECO on 06-05-2024 Microscopic analysis of urine for red blood cells (RBC) 0 SEEN /hpf 0-5 [facility] Urine RBC 0 SEEN /hpf 0-5 [facility] Monocyte percentageOrdered B y: TOYIN PACHECO on 06-05-2024 Monocytes/100 WBC (Bld) 7.6 % 0-10 [facility] Mucus LM Ql (Urine sed)Order ed By: TOYIN PACHECO on 06-05-2024 Mucus Ql (Urine sed) 0 SEEN /hpf [facility] Neutrophil percentageOrdered By: TOYIN PACHECO on 06-05-2024 Neutrophils/100 WBC (Bld) 84.8 % High 47-70 [facility] Nitrite Test strip Ql (U)Ord ered By: TOYIN PACHECO on 06-05-2024 Nitrite Ql (U) Negative Negative [facility] Nucleated red blood cell per centageOrdered By: TOYIN PACHECO on 06-05-2024 Nucleated RBC/100 WBC (Bld) [Ratio] 0 % 0-5 [facility] Ovalocyte detectionOrdered B y: TOYIN PACHECO on 06-05-2024 Ovalocytes LM Ql (Bld) 1+ [facility] Ovalocytes LM Ql (Bld)Ordere d By: TOYIN PACHECO on 06-05-2024 Ovalocytes 1+ [facility] Pathologist review Bruce (Unsp spec) [Interp]Ordered By: TOYIN PACHECO on 06-05-2024 Differential Pathologist's Review July [facility] Platelet countOrdered By: RA OSIEL PACHECO on 06-05-2024 Platelets (Bld) [#/Vol] 47 10*3/uL Low 150-450 [facility] Platelet estimateOrdered By: TOYIN PACHECO on 06-05-2024 Platelets LM Ql (Bld) MKD DEC ADEQ [facility] Platelets LM Ql (Bld)Ordered By: TOYIN PACHECO on 06-05-2024 Platelet Estimate MKD DEC ADEQ [facility] Polychromasia LM Ql (Bld)Ord ered By: TOYIN PACHECO on 06-05-2024 Polychromasia 1+ [facility] Protein Test strip Ql (U)Ord ered By: TOYIN PACHECO on 06-05-2024 Protein Ql (U) 15 mg/dl High Negative [facility] RBC Auto (Bld) [#/Vol]Ordere d By: TOYIN PACHECO on 06-05-2024 RBC (Bld) [#/Vol] 4.52 10*6/uL 4.2-5.4 [facility] Review by pathologistOrdered By: TOYIN PACHECO on 06-05-2024 Pathologist review Bruce (Unsp spec) [Interp] Reviewed [facility] Comment on above: Previous reported re sult: Suki mathieu Edited by: CYNTHIA on 06/27/24:1533SEE REPORT IN PATIENT'S EMR AMENDED REPORT 06/27/24 1533 PATH REV previously reported as: Suki murdock Serum Creatinine AND GFRon 0 06-05-2024 Creatinine [Mass/Vol] 0.88 mg/dL Normal 0.70-1.20 [facility] Comment on above: Performed By: #### L 100.0100, L500.4050, L500.4100, L300.3900, L3300.0700, L300.4310 #### [facility] [address] [place], [address] GFR/1.73 sq M.predicted among non-blacks MDRD (S/P/Bld) [Vol rate/Area] 72 mL/min/{1.73_m2} Normal >60 [facility] Comment on above: Result Comment: mL/m in/1.73m2 CKD-EPI Creatinine Equation (2020) Performed By: #### L 100.0100, L500.4050, L500.4100, L300.3900, L3300.0700, L300.4310 #### [facility] [address] [place], [address] Serum DNA double strand anti body assay (units/volume)Ordered By: TOYIN PACHECO on 06-05-2024 DNA double strand Ab Qn (S) 1 [IU]/mL 0-9 [facility] Comment on above: Negative <5 Equivoca l 5 - 9 Positive >9Performed at: [facility] [id number] Director: Chandler Brock PhD, Phone: [phone] Serum creatinine measurement (mass/volume)Ordered By: TOYIN PACHECO on 06-05-2024 Creatinine [Mass/Vol] 0.88 mg/dL 0.70-1.20 [facility] Serum or plasma C reactive p rotein measurement (mass/volume)Ordered By: TOYIN PACHECO on 06-05-2024 CRP [Mass/Vol] 18.40 mg/L High 0.0-3.0 [facility] Serum or plasma alanine kilgore otransferase (ALT) measurementOrdered By: TOYIN PACHECO on 06-05-2024 ALT [Catalytic activity/Vol] 39 U/L High <35 [facility] Serum or plasma complement C 4 measurement (mass/volume)Ordered By: TOYIN PACHECO on 06-05-2024 Complement C4 [Mass/Vol] 14 mg/dL 12-38 [facility] Serum or plasma urea nitroge n measurement (mass/volume)Ordered By: TOYIN PACHECO on 06-05-2024 Urea nitrogen [Mass/Vol] 25 mg/dL High 4-19 [facility] Squamous epithelial cells de tection in urine sediment by light microscopyOrdered By: TOYIN PACHECO on 06-05-2024 Epithelial cells.squamous LM Ql (Urine sed) 0-5 SEEN /hpf 5-10 [facility] Urinalysis, Completeon 06-05 RBC 0 SEEN Normal 0-5 [facility] Comment on above: Order Comment: Urine , Random Performed By: #### L 100.0100, L500.4050, L500.4100, L300.3900, L3300.0700, L300.4310 #### [facility] [place], [address] Urine blood detectionOrdered By: TOYIN PACHECO on 06-05-2024 Urine Occult Blood Negative Negative [facility] Urine clarityOrdered By: NATI PACHECO on 06-05-2024 Clarity (U) Clear Clear [facility] Urine color determinationOrd ered By: TOYIN PACHECO on 06-05-2024 Color (U) Yellow Yellow [facility] Urine glucose detectionOrder ed By: TOYIN PACHECO on 06-05-2024 Glucose Ql (U) 50 mg/dl High Normal [facility] Urine leukocyte esterase det ection by dipstickOrdered By: TOYIN PACHECO on 06-05-2024 Leukocyte esterase Test strip Ql (U) 100 /ul High Negative [facility] Urine pHOrdered By: TOYIN FREY on 06-05-2024 pH (U) 5.0 [pH] 5.0 - 8.0 [facility] Urine sediment bacteria coun t by microscopy (number/high power field)Ordered By: TOYIN PACHECO on 06-05-2024 Bacteria LM.HPF (Urine sed) [#/Area] 0 /[HPF] None Seen [facility] Urine specific gravity measu rementOrdered By: TOYIN PACHECO on 06-05-2024 Specific gravity (U) [Rel density] 1.015 1.002-1.030 [facility] Urine urobilinogen measureme ntOrdered By: TOYIN PACHECO on 06-05-2024 Urobilinogen Ql (U) Normal mg/dl Normal [facility] Urobilinogen Ql (U)Ordered B y: TOYIN PACHECO on 06-05-2024 Urine Urobilinogen Normal mg/dl Normal [facility] White blood cell (WBC) count Ordered By: TOYIN PACHECO on 06-05-2024 WBC (Bld) [#/Vol] 3.9 10*3/uL Low 4.4-11.0 [facility] White blood cell countOrdere d By: TOYIN PACHECO on 06-05-2024 Urine WBC 0-5 SEEN /hpf 0-5 [facility] White blood cell count 0-5 SEEN /hpf 0-5 [facility] CBC W/Diff, Automatedon PATH REV Reviewed Normal [facility] Comment on above: Order Comment: Order Date: 03/30/24Order Info: [id number] - CBCD Result Comment: Panc ytopenia. Leukopenia and neutropenia. Normocytic anemia. MARKED Thrombocytopenia. Clinical correlation necessary. Saud Acosta M.D. 04/17/24 AMENDED REPORT 04/17/24 1403 PATH REV previously reported as: July mathieu Performed By: #### L 100.0100, L500.4050, L500.4100, L300.3900, L3300.0700, L300.4310 #### [facility] [address] [place], [address] Vitamin D,25 Hydroxyon 04-15 Vitamin D 25-OH 33.8 ng/mL Normal [facility] Comment on above: Order Comment: Order Date: 03/30/24Order Info: [id number] - [id number] Result Comment: Marti min D 25(OH) Status Range Deficiency <20 ng/mL (50nmol/L) Insufficiency 20 - 30 ng/mL (50 - 75 nmol/L) Sufficiency 30 - 100 ng/mL (75 - 250 nmol/L) Toxicity >100 ng/mL (>250 nmol/L) Performed By: #### L 100.0100, L500.4050, L500.4100, L300.3900, L3300.0700, L300.4310 #### [facility] [address] [place], [address] [id number]-Babvahg DOrdered By: Tacos Covarrubias on 04-14-2024 Vitamin D 25-Hydroxy 33.8 ng/mL [facility] Comment on above: Vitamin D 25(OH) Sta tus Range Deficiency <20 ng/mL (50nmol/L) Insufficiency 20 - 30 ng/mL (50 - 75 nmol/L) Sufficiency 30 - 100 ng/mL (75 - 250 nmol/L) Toxicity >100 ng/mL (>250 nmol/L) Absolute neutrophil countOrd ered By: Alonzo Covarrubias on 04-14-2024 Neutrophils (Bld) [#/Vol] 1.9 10*3/uL Low 2.0-7.7 [facility] Albumin to globulin ratioOrd ered By: Alonzo Covarrubias on 04-14-2024 Albumin/Globulin [Mass ratio] 0.6 {ratio} Low 0.9-2.4 [facility] Basophil percentageOrdered B y: Alonzo Covarrubias on 04-14-2024 Basophils/100 WBC (Bld) 0.8 % 0-1 [facility] Bilirubin, totalOrdered By: Alonzo Covarrubias on 04-14-2024 Bilirubin [Mass/Vol] 0.60 mg/dL 0.20-1.00 [facility] Comment on above: For patients on eltr ombopag therapy, use of Dimension [place] TBIL is not recommended. Blood urea nitrogen (BUN)/cr eatinine ratioOrdered By: Alonzo Covarrubias on 04-14-2024 Urea nitrogen/Creatinine [Mass ratio] 25.3 mg/mg High 10-20 [facility] Carbon dioxide measurementOr dered By: Alonzo Covarrubias on 04-14-2024 CO2 [Moles/Vol] 24.0 mmol/L 21.0-32.0 [facility] Chloride measurementOrdered By: Alonzo Covarrubias on 04-14-2024 Chloride [Moles/Vol] 108 mmol/L High 98-107 [facility] Comprehensive Metabolic Prof ilon 04-14-2024 Albumin [Mass/Vol] 2.7 g/dL Low 3.2-5.0 [facility] Comment on above: Order Comment: Order Date: 03/30/24Order Info: [id number] - CMPOrder Info: [id number] - LIPIDOrder Info: [id number] - TSH Performed By: #### L 100.0100, L500.4050, L500.4100, L300.3900, L3300.0700, L300.4310 #### [facility] [address] [place], [address] Albumin/Globulin [Mass ratio] 0.6 {ratio} Low 0.9-2.4 [facility] Comment on above: Order Comment: Order Date: 03/30/24Order Info: [id number] - CMPOrder Info: [id number] - LIPIDOrder Info: [id number] - TSH Performed By: #### L 100.0100, L500.4050, L500.4100, L300.3900, L3300.0700, L300.4310 #### [facility] [address] [place], [address] ALK P 153 U/L High 45-117 [facility] Comment on above: Order Comment: Order Date: 03/30/24Order Info: [id number] - CMPOrder Info: [id number] - LIPIDOrder Info: [id number] - TSH Performed By: #### L 100.0100, L500.4050, L500.4100, L300.3900, L3300.0700, L300.4310 #### [facility] [address] [place], [address] ALT [Catalytic activity/Vol] 47 U/L Normal 13-56 [facility] Comment on above: Order Comment: Order Date: 03/30/24Order Info: [id number] - CMPOrder Info: [id number] - LIPIDOrder Info: [id number] - TSH Performed By: #### L 100.0100, L500.4050, L500.4100, L300.3900, L3300.0700, L300.4310 #### [facility] [address] [place], [address] AST [Catalytic activity/Vol] 26 U/L Normal 15-37 [facility] Comment on above: Order Comment: Order Date: 03/30/24Order Info: [id number] - CMPOrder Info: [id number] - LIPIDOrder Info: [id number] - TSH Performed By: #### L 100.0100, L500.4050, L500.4100, L300.3900, L3300.0700, L300.4310 #### [facility] [address] [place], [address] Bilirubin [Mass/Vol] 0.60 mg/dL Normal 0.20-1.00 [facility] Comment on above: Order Comment: Order Date: 03/30/24Order Info: [id number] - CMPOrder Info: [id number] - LIPIDOrder Info: [id number] - TSH Result Comment: For patients on eltrombopag therapy, use of Dimension [place] TBIL is not recommended. Performed By: #### L 100.0100, L500.4050, L500.4100, L300.3900, L3300.0700, L300.4310 #### [facility] [address] [place], [address] BUN/CRE 25.3 RATIO High 10-20 [facility] Comment on above: Order Comment: Order Date: 03/30/24Order Info: [id number] - CMPOrder Info: [id number] - LIPIDOrder Info: [id number] - TSH Performed By: #### L 100.0100, L500.4050, L500.4100, L300.3900, L3300.0700, L300.4310 #### [facility] [address] [place], [address] CA,Total 8.5 mg/dL Normal 8.5-10.1 [facility] Comment on above: Order Comment: Order Date: 03/30/24Order Info: [id number] - CMPOrder Info: [id number] - LIPIDOrder Info: [id number] - TSH Performed By: #### L 100.0100, L500.4050, L500.4100, L300.3900, L3300.0700, L300.4310 #### [facility] [address] [place], [address] Chloride [Moles/Vol] 108 mmol/L High 98-107 [facility] Comment on above: Order Comment: Order Date: 03/30/24Order Info: [id number] - CMPOrder Info: [id number] - LIPIDOrder Info: [id number] - TSH Performed By: #### L 100.0100, L500.4050, L500.4100, L300.3900, L3300.0700, L300.4310 #### [facility] [address] [place], [address] CO2 [Moles/Vol] 24.0 mmol/L Normal 21.0-32.0 [facility] Comment on above: Order Comment: Order Date: 03/30/24Order Info: [id number] - CMPOrder Info: [id number] - LIPIDOrder Info: [id number] - TSH Performed By: #### L 100.0100, L500.4050, L500.4100, L300.3900, L3300.0700, L300.4310 #### [facility] [address] [place], [address] Creatinine [Mass/Vol] 0.91 mg/dL Normal 0.55-1.02 [facility] Comment on above: Order Comment: Order Date: 03/30/24Order Info: [id number] - CMPOrder Info: [id number] - LIPIDOrder Info: [id number] - TSH Result Comment: The validity of the calculated GFR GFRAA in patients over 70 years has not been determined. Clinical correlation is essential. Performed By: #### L 100.0100, L500.4050, L500.4100, L300.3900, L3300.0700, L300.4310 #### [facility] [address] [place], [address] EST GFR - AA 79 mL/min Normal >60 [facility] Comment on above: Order Comment: Order Date: 03/30/24Order Info: [id number] - CMPOrder Info: [id number] - LIPIDOrder Info: [id number] - TSH Result Comment: Afri can English GFR Calc Performed By: #### L 100.0100, L500.4050, L500.4100, L300.3900, L3300.0700, L300.4310 #### [facility] [address] [place], [address] GAP 8 Normal 5-15 [facility] Comment on above: Order Comment: Order Date: 03/30/24Order Info: [id number] - CMPOrder Info: [id number] - LIPIDOrder Info: [id number] - TSH Performed By: #### L 100.0100, L500.4050, L500.4100, L300.3900, L3300.0700, L300.4310 #### [facility] [address] [place], [address] GFR/1.73 sq M.predicted among non-blacks MDRD (S/P/Bld) [Vol rate/Area] 66 mL/min/{1.73_m2} Normal >60 [facility] Comment on above: Order Comment: Order Date: 03/30/24Order Info: [id number] - CMPOrder Info: [id number] - LIPIDOrder Info: [id number] - TSH Result Comment: Non- GFR Calc Performed By: #### L 100.0100, L500.4050, L500.4100, L300.3900, L3300.0700, L300.4310 #### [facility] [address] [place], [address] Globulin (S) [Mass/Vol] 4.9 g/dL High 2.2-4.2 [facility] Comment on above: Order Comment: Order Date: 03/30/24Order Info: [id number] - CMPOrder Info: [id number] - LIPIDOrder Info: [id number] - TSH Performed By: #### L 100.0100, L500.4050, L500.4100, L300.3900, L3300.0700, L300.4310 #### [facility] [address] [place], [address] Glucose [Mass/Vol] 85 mg/dL Normal 74-106 [facility] Comment on above: Order Comment: Order Date: 03/30/24Order Info: [id number] - CMPOrder Info: [id number] - LIPIDOrder Info: [id number] - TSH Performed By: #### L 100.0100, L500.4050, L500.4100, L300.3900, L3300.0700, L300.4310 #### [facility] [address] [place], [address] Potassium [Moles/Vol] 3.7 mmol/L Normal 3.5-5.1 [facility] Comment on above: Order Comment: Order Date: 03/30/24Order Info: [id number] - CMPOrder Info: [id number] - LIPIDOrder Info: [id number] - TSH Performed By: #### L 100.0100, L500.4050, L500.4100, L300.3900, L3300.0700, L300.4310 #### [facility] [address] [place], [address] Sodium [Moles/Vol] 140 mmol/L Normal 136-145 [facility] Comment on above: Order Comment: Order Date: 03/30/24Order Info: [id number] - CMPOrder Info: [id number] - LIPIDOrder Info: [id number] - TSH Performed By: #### L 100.0100, L500.4050, L500.4100, L300.3900, L3300.0700, L300.4310 #### [facility] [address] [place], [address] T PROT 7.6 g/dL Normal 6.4-8.2 [facility] Comment on above: Order Comment: Order Date: 03/30/24Order Info: [id number] - CMPOrder Info: [id number] - LIPIDOrder Info: [id number] - TSH Performed By: #### L 100.0100, L500.4050, L500.4100, L300.3900, L3300.0700, L300.4310 #### [facility] [address] [place], [place], [address] Urea nitrogen [Mass/Vol] 23 mg/dL High 7-18 [facility] Comment on above: Order Comment: Order Date: 03/30/24Order Info: [id number] - CMPOrder Info: [id number] - LIPIDOrder Info: [id number] - TSH Performed By: #### L 100.0100, L500.4050, L500.4100, L300.3900, L3300.0700, L300.4310 #### [facility] [address] [place], [place], [address] Eosinophil percentageOrdered By: Alonzo Covarrubias on 04-14-2024 Eosinophils/100 WBC (Bld) 0.4 % 0-5 [facility] Erythrocyte distribution wid th ratioOrdered By: Alonzo Covarrubias on 04-14-2024 Erythrocyte distribution width (RBC) [Ratio] 16.2 % High 11.6-14.6 [facility] Erythrocyte distribution wid th standard deviationOrdered By: Alonzo Covarrubias on 04-14-2024 Erythrocyte distribution width (RBC) [Entitic vol] 49.2 fL High 35.1-43.9 [facility] Estimated glomerular filtrat ion rate (GFR) AmericanOrdered By: Alonzo Covarrubias on 04-14-2024 Estimated GFR (MDRD) Amer 79 mL/min >60 [facility] Comment on above: GFR Calc Glomerular filtration rate ( GFR) estimationOrdered By: Alonzo Covarrubias on 04-14-2024 Estimated GFR (MDRD) Non-Af Amer 66 mL/min >60 [facility] Comment on above: Non- GFR Calc Glucose measurementOrdered B y: Alonzo Covarrubias on 04-14-2024 Glucose [Mass/Vol] 85 mg/dL 74-106 [facility] Hematocrit Auto (Bld) [Volum e fraction]Ordered By: Alonzo Covarrubias on 04-14-2024 Hematocrit (Bld) [Volume fraction] 36.9 % Low 37-47 [facility] Hemoglobin A1con 04-14-2024 HbA1c (Bld) [Mass fraction] 7.4 % High 3.8-5.6 [facility] Comment on above: Order Comment: Order Date: 03/30/24Order Info: [id number] - A1C Result Comment: Norm al < 5.7 % Prediabetic 5.7 - 6.4 % Diabetic >or= 6.5 % Please note range changes. Performed By: #### L 100.0100, L500.4050, L500.4100, L300.3900, L3300.0700, L300.4310 #### [facility] [address] [facility] [place], [address] Hemoglobin A1c percentageOrd ered By: Alonzo Covarrubias on 04-14-2024 HbA1c (Bld) [Mass fraction] 7.4 % High 3.8-5.6 [facility] Comment on above: Normal < 5.7 % Predi abetic 5.7 - 6.4 % Diabetic >or= 6.5 % Please note range changes. Hemoglobin measurementOrdere d By: Alonzo Covarrubias on 04-14-2024 Hemoglobin (Bld) [Mass/Vol] 11.6 g/dL Low 12.0-15.0 [facility] High density lipoprotein (HD L) measurementOrdered By: lAonzo Covarrubias on 04-14-2024 Cholesterol in HDL [Mass/Vol] 35 mg/dL Low >40 [facility] Comment on above: The drugs N-Acetylcy steine and Metamizole may falsely depress this assay. Reference Range HDL <40 mg/dL Low HDL Cholesterol HDL >or= 60 mg/dL High HDL Cholesterol Immature granulocytes/100 WB C Auto (Bld)Ordered By: Alonzo Covarrubias on 04-14-2024 Immature granulocytes/100 WBC (Bld) 1.700 % High 0.0-0.9 [facility] Comment on above: IG% - Immature Granu locytes (promyelocytes, myelocytes and metamyelocytes) > 1% indicates that a LEFT SHIFT is Present. Laboratory - Chemistry and C hemistry - challengeOrdered By: Alonzo Covarrubias on 04-14-2024 AST [Catalytic activity/Vol] 26 U/L 15-37 [facility] Lipid Profileon 04-14-2024 Cholesterol [Mass/Vol] 182 mg/dL Normal 200 [facility] Comment on above: Order Comment: Order Date: 03/30/24Order Info: [id number] - CMPOrder Info: [id number] - LIPIDOrder Info: [id number] - TSH Result Comment: <200 mg/dL Desirable 200-240 mg/dL Borderline >240 mg/dL High Risk Performed By: #### L 100.0100, L500.4050, L500.4100, L300.3900, L3300.0700, L300.4310 #### [facility] [address] [place], [address] Cholesterol in HDL [Mass/Vol] 35 mg/dL Low [facility] Comment on above: Order Comment: Order Date: 03/30/24Order Info: 07- - CMPOrder Info: [id number] - LIPIDOrder Info: [id number] - TSH Result Comment: The drugs N-Acetylcysteine and Metamizole may falsely depress this assay. Reference Range HDL <40 mg/dL Low HDL Cholesterol HDL >or= 60 mg/dL High HDL Cholesterol Performed By: #### L 100.0100, L500.4050, L500.4100, L300.3900, L3300.0700, L300.4310 #### [facility] [address] [place], [address] Cholesterol in LDL [Mass/Vol] 117 mg/dL Normal 0-130 [facility] Comment on above: Order Comment: Order Date: 03/30/24Order Info: [id number] - CMPOrder Info: [id number] - LIPIDOrder Info: [id number] - TSH Performed By: #### L 100.0100, L500.4050, L500.4100, L300.3900, L3300.0700, L300.4310 #### [facility] [address] [place], [address] Cholesterol in VLDL [Mass/Vol] 30 mg/dL Normal 5-40 [facility] Comment on above: Order Comment: Order Date: 03/30/24Order Info: [id number] - CMPOrder Info: [id number] - LIPIDOrder Info: [id number] - TSH Performed By: #### L 100.0100, L500.4050, L500.4100, L300.3900, L3300.0700, L300.4310 #### [facility] [address] [place], [address] Triglyceride [Mass/Vol] 149 mg/dL Normal [facility] Comment on above: Order Comment: Order Date: 03/30/24Order Info: [id number] - CMPOrder Info: [id number] - LIPIDOrder Info: [id number] - TSH Result Comment: The drugs N-Acetylcysteine and Metamizole may falsely depress this assay. Serum Triglycerides Reference Interval Normal <150 mg/dL Borderline high 150 - 199 mg/dL High 200 - 499 mg/dL Very High > or = 500 mg/dL Performed By: #### L 100.0100, L500.4050, L500.4100, L300.3900, L3300.0700, L300.4310 #### [facility] [address] [place], [address] Low density lipoprotein (LDL ) cholesterol measurementOrdered By: Alonzo Covarrubias on 04-14-2024 Cholesterol in LDL [Mass/Vol] 117 mg/dL 0-130 [facility] Lymphocytes Auto (Unsp spec) [#/Vol]Ordered By: Alonzo Covarrubias on 04-14-2024 Lymphocytes (Bld) [#/Vol] 0.17 10*3/uL Low 0.83-4.51 [facility] Lymphocytes/100 WBC Auto (Un sp spec)Ordered By: Alonzo Covarrubias on 04-14-2024 Lymphocytes/100 WBC (Bld) 7.1 % Low 19-41 [facility] MCV (mean corpuscular volume ) determinationOrdered By: Alonzo Covarrubias on 04-14-2024 MCV (RBC) [Entitic vol] 83.5 fL 81-99 [facility] Manual differential comment Bruce (Bld) [Interp]Ordered By: Frankmark Satish on 04-14-2024 Differential Comment COMMENT [facility] Comment on above: LYMPHOPENIA Mean corpuscular hemoglobin (MCH) determinationOrdered By: Alonzo Covarrubias on 04-14-2024 MCH (RBC) [Entitic mass] 26.2 pg Low 27.0-32.0 [facility] Mean corpuscular hemoglobin concentration (MCHC) determinationOrdered By: Alonzo Covarrubias on 04-14-2024 MCHC (RBC) [Mass/Vol] 31.4 g/dL Low 32-36 [facility] Monocyte percentageOrdered B y: Alonzo Covarrubias on 04-14-2024 Monocytes/100 WBC (Bld) 11.8 % High 0-10 [facility] Neutrophil percentageOrdered By: Alonzo Covarrubias on 04-14-2024 Neutrophils/100 WBC (Bld) 78.2 % High 47-70 [facility] Nucleated red blood cell per centageOrdered By: Alonzo Covarrubias on 04-14-2024 Nucleated RBC/100 WBC (Bld) [Ratio] 0 % 0-5 [facility] Pathologist review Bruce (Unsp spec) [Interp]Ordered By: Alonzo Covarrubias on 04-14-2024 Differential Pathologist's Review Reviewed [facility] Comment on above: Previous reported re sult: Suki murdock Edited by: CYNTHIA on 04/17/24:1403Pancytopenia.Leukopenia and neutropenia.Normocytic anemia.MARKED Thrombocytopenia.Clinical correlation necessary.Saud Acosta M.D. 04/17/24 AMENDED REPORT 04/17/24 1403 PATH REV previously reported as: Suki murdock Platelet countOrdered By: Ruthie Covarrubias on 04-14-2024 Platelets (Bld) [#/Vol] 40 10*3/uL Low 150-450 [facility] Comment on above: CRITICAL VALUE CAMERON MAXWELL RN [facility]04/14/24 1103 Jose Manuel RaineyRESULTS READ BACK BY SAME. Platelets LM Ql (Bld)Ordered By: Alonzo Covarrubias on 04-14-2024 Platelet Estimate MKD DEC ADEQ [facility] Potassium measurementOrdered By: Alonzo Covarrubias on 04-14-2024 Potassium [Moles/Vol] 3.7 mmol/L 3.5-5.1 [facility] RBC Auto (Bld) [#/Vol]Ordere d By: Alonzo Covarrubias on 04-14-2024 RBC (Bld) [#/Vol] 4.42 10*6/uL 4.2-5.4 [facility] Serum anion gap measurementO rdered By: Alonzo Covarrubias on 04-14-2024 Anion gap [Moles/Vol] 8 mmol/L 5-15 [facility] Serum globulin measurementOr dered By: Alonzo Covarrubias on 04-14-2024 Globulin (S) [Mass/Vol] 4.9 g/dL High 2.2-4.2 [facility] Serum or plasma alanine kilgore otransferase (ALT) measurementOrdered By: Alonzo Covarrubias on 04-14-2024 ALT [Catalytic activity/Vol] 47 U/L 13-56 [facility] Serum or plasma albumin diana urement (mass/volume)Ordered By: Alonzo Covarrubias on 04-14-2024 Albumin [Mass/Vol] 2.7 g/dL Low 3.2-5.0 [facility] Serum or plasma alkaline clementine sphatase measurementOrdered By: Alonzo Covarrubias on 04-14-2024 ALP [Catalytic activity/Vol] 153 U/L High 45-117 [facility] Serum or plasma calcium diana urement (mass/volume)Ordered By: Alonzo Covarrubias on 04-14-2024 Calcium [Mass/Vol] 8.5 mg/dL 8.5-10.1 [facility] Serum or plasma cholesterol measurement (mass/volume)Ordered By: Alonzo Covarrubias on 04-14-2024 Cholesterol [Mass/Vol] 182 mg/dL <200 [facility] Comment on above: <200 mg/dL Desirable 200-240 mg/dL Borderline >240 mg/dL High Risk Serum or plasma creatinine m easurement (mass/volume)Ordered By: Alonzo Covarrubias on 04-14-2024 Creatinine [Mass/Vol] 0.91 mg/dL 0.55-1.02 [facility] Comment on above: The validity of the calculated GFR & GFRAA in patients over 70 years has not been determined. Clinical correlation is essential. Serum or plasma urea nitroge n measurement (mass/volume)Ordered By: Alonzo Covarrubias on 04-14-2024 Urea nitrogen [Mass/Vol] 23 mg/dL High 7-18 [facility] Sodium levelOrdered By: Frank Covarrubias on 04-14-2024 Sodium [Moles/Vol] 140 mmol/L 136-145 [facility] TSH QnOrdered By: Alonzo Grier e on 04-14-2024 Thyroid Stimulating Hormone (TSH) 4.680 uIU/mL High 0.358-3.740 [facility] Thyroid Stim Hormone (TSH)on 04-14-2024 TSH 4.680 uIU/mL High 0.358-3.740 [facility] Comment on above: Order Comment: Order Date: 03/30/24Order Info: [id number] - CMPOrder Info: [id number] - LIPIDOrder Info: [id number] - TSH Performed By: #### L 100.0100, L500.4050, L500.4100, L300.3900, L3300.0700, L300.4310 #### [facility] [place], [address] Total proteinOrdered By: Jane Covarrubias on 04-14-2024 Protein [Mass/Vol] 7.6 g/dL 6.4-8.2 [facility] Triglycerides measurementOrd ered By: Alonzo Covarrubias on 04-14-2024 Triglyceride [Mass/Vol] 149 mg/dL <199 [facility] Comment on above: The drugs N-Acetylcy steine and Metamizole may falsely depress this assay.Serum Triglycerides Reference Interval Normal <150 mg/dL Borderline high 150 - 199 mg/dL High 200 - 499 mg/dL Very High > or = 500 mg/dL Very low density lipoprotein (VLDL) cholesterol measurementOrdered By: Alonzo Covarrubias on 04-14-2024 VLDL Cholesterol 30 mg/dL 5-40 [facility] White blood cell (WBC) count Ordered By: Alonzo Covarrubias on 04-14-2024 WBC (Bld) [#/Vol] 2.4 10*3/uL Low 4.4-11.0 [facility] LABORATORYOrdered By: Zofia Geller on 02-21-2024 Glucose [Mass/Vol] 81 mg/dL Low 82 - 115 mg/dL [facility] Work Phone: CBC W/Diff, Automatedon 01-13 PATH REV Reviewed Normal [facility] Comment on above: Order Comment: CRITI GAMALIEL VALUE CALLED TO GEETA TSE01/26/24 1824 Saritha Friedman.RESULTS READ BACK BY SAME. Result Comment: Panc ytopenia. LEUKOPENIA Normocytic anemia. MARKED Thrombocytopenia. Clinical correlation necessary. Saud Acosta M.D. 01/27/24 AMENDED REPORT 01/27/24 1202 PATH REV previously reported as: July mathieu Performed By: #### L 100.0100, L500.4050, L500.4100, L300.3900, L3300.0700, L300.4310 #### [facility] [address] [place], [address] AFP, Tumor Markeron 01-14-20 AFP TUMOR GERHARD 2.2 ng/mL Normal 0.0-9.2 [facility] Comment on above: Order Comment: N Result Comment: [facility] [employer] Electrochemiluminescence Immunoassay (ECLIA) Values obtained with different assay methods or kits cannot be used interchangeably. Results cannot be interpreted as absolute evidence of the presence or absence of malignant disease. This test is not interpretable in females. Performed at: [address] [id number] Linter Tender: Chandler Brock PhD, Phone: [phone] Performed By: #### L 100.0100, L500.4050, L500.4100, L300.3900, L3300.0700, L300.4310 #### [facility] [address] [place], [address] CBC W/Diff, Automatedon 10-3 -2024 SMEAR COMMENT SCANNED Normal [facility] Comment on above: Result Comment: LYMP HOPENIA NOTED THROMBOCYTOPENIA NOTED Performed By: #### L 100.0100, L500.4050, L500.4100, L300.3900, L3300.0700, L300.4310 #### [facility] [address] [place], [address] CRPon 01-12-2024 C-REACTIVE PROT 20.10 mg/L High 0.0-3.0 [facility] Comment on above: Result Comment: C-Re active Protein (CRP) provides useful information for the diagnosis, therapy and monitoring of inflammatory processes and associated diseases. For the evaluation of Relative Risk for Cardiovascular Disease, a High Sensitivity CRP (HSCRP) should be ordered. Performed By: #### L 100.0100, L500.4050, L500.4100, L300.3900, L3300.0700, L300.4310 #### [facility] [address] [place], [address] Elastography Parenchyma/Orga non 01-12-2024 Elastography Parenchyma/Organ [facility] [address] [place], [place] [address] Elastography Parenchyma/Organ MR#: [id number] Acct: [id number] Name: VANNESSA PRESTON Rep #: [id number] : 1955 F 68 From: Umer doyle MD PCP: Dr. Saritha Coles, DO Status: REG CL Study: Elastography Parenchyma/Organ Date of Exam: Exam# [id number] Ordering Dr: Chandler Yancey MD [id number] STUDY: ABDOMINAL ULTRASOUND - ELASTOGRAPHY REASON FOR VISIT: Female, 68 years old. History of hepatitis. TECHNIQUE: Liver stiffness measurements were obtained on a [employer] RS 85 ultrasound machine using a CA 1-7 probe following the SRU guidelines. 3 measurements were obtained using a 2-D-SWE method. TheIQR/M was 12% suggesting a quality data set. TECHNICAL QUALITY: Adequate. COMPARISON: Comparison is made with prior study November 22, 2023. FINDINGS: Liver: There is no demonstrated mass lesion. Median liver stiffness measured 18 kPa. Abdomen: There is no demonstrated mass lesion. US/Elastography Parenchyma/Organ IMPRESSION: Liver stiffness measures 18 kPa compatible with F3-F4 (Moderate to severe liver fibrosis) Metavir score. Electronically Signed: Umer Meier MD at 11:06 EDT Reading Location ID and State: [facility] / [place] , Service support , CC: Dr. Saritha Coles DO; Dr. Chandler Yancey MD Hearing Consultant: Signed Normal [facility] Abdomen Limitedon 11-22-2023 Abdomen Limited [facility] [address] [place], [place] [address] Abdomen Limited MR#: [id number] Acct: [id number] Name: VANNESSA PRESTON Rep #: [id number] : 1955 F 68 From: Chiquita Merlos PCP: Dr. Saritha Coles DO Status: REG CLI Study: Abdomen Limited Date of Exam: 11/22/23 Exam# [id number] Ordering Dr: Chandler Yancey MD [id number] INDICATION: CIRRHOSIS EXAMINATION: Ultrasound US Abdomen Limited (quadrant) TECHNIQUE: Hardy scale and color doppler imaging was performed of the right upper quadrant. COMPARISON: 06/03/2023 FINDINGS: LIVER: 13.4 cm length. Heterogeneous. Coarse echotexture. No definite focal abnormality. Main portal vein patent, appropriate hepatopedal direction of flow. GALLBLADDER Size: Distended. Stones: 10 mm stone in the gallbladder neck. Wall thickness: Not thickened. 3 mm. Pericholecystic fluid: None. Sonographic Hall sign: Negative. EXTRAHEPATIC BILE DUCTS: Common bile duct 5 mm not dilated. PANCREAS: Unremarkable. RIGHT KIDNEY: No hydronephrosis. ASCITES: None. US/Abdomen Limited IMPRESSION: Cholelithiasis. No evidence of acute cholecystitis. Heterogeneous liver consistent with known cirrhosis. Electronically Signed: Chiquita Huertas MD at 8:09 EDT , CC: Dr. Saritha Coles, DO; Dr. Chandler Yancey MD Hearing Consultant: Signed Normal [facility] AFP, Tumor Markeron 11-20-19 AFP TUMOR GERHARD 2.2 ng/mL Normal 0.0-9.2 [facility] Comment on above: Order Comment: N Result Comment: [facility] Electrochemiluminescence Immunoassay (ECLIA) Values obtained with different assay methods or kits cannot be used interchangeably. Results cannot be interpreted as absolute evidence of the presence or absence of malignant disease. This test is not interpretable in females. Performed at: [facility] [address] [id number] Linter Tender: Chandler Brock PhD, Phone: [phone] Performed By: #### L 100.0100, L500.4050, L500.4100, L300.3900, L3300.0700, L300.4310 #### [facility] [address] [place], [address] CBC W/Diff, Automatedon SMEAR COMMENT SCANNED Normal [facility] Comment on above: Result Comment: LYMP HOPENIA NOTED THROMBOCYTOPENIA NOTED Performed By: #### L 100.0100, L500.4050, L500.4100, L300.3900, L3300.0700, L300.4310 #### [facility] [address] [place], [address] Comprehensive Metabolic Prof ilon 11-18-2023 Albumin [Mass/Vol] 2.8 g/dL Low 3.2-5.0 [facility] Comment on above: Performed By: #### L 100.0100, L500.4050, L500.4100, L300.3900, L3300.0700, L300.4310 #### [facility] [address] [place], [address] Albumin/Globulin [Mass ratio] 0.6 {ratio} Low 0.9-2.4 [facility] Comment on above: Performed By: #### L 100.0100, L500.4050, L500.4100, L300.3900, L3300.0700, L300.4310 #### [facility] [address] [place], [address] ALK P 170 U/L High 45-117 [facility] Comment on above: Performed By: #### L 100.0100, L500.4050, L500.4100, L300.3900, L3300.0700, L300.4310 #### [facility] [address] [place], [address] ALT [Catalytic activity/Vol] 49 U/L Normal 13-56 [facility] Comment on above: Performed By: #### L 100.0100, L500.4050, L500.4100, L300.3900, L3300.0700, L300.4310 #### [facility] [address] [place], [address] AST [Catalytic activity/Vol] 32 U/L Normal 15-37 [facility] Comment on above: Performed By: #### L 100.0100, L500.4050, L500.4100, L300.3900, L3300.0700, L300.4310 #### [facility] [address] [place], [address] Bilirubin [Mass/Vol] 0.70 mg/dL Normal 0.20-1.00 [facility] Comment on above: Result Comment: For patients on eltrombopag therapy, use of Dimension [place] TBIL is not recommended. Performed By: #### L 100.0100, L500.4050, L500.4100, L300.3900, L3300.0700, L300.4310 #### [facility] [address] [place], [address] BUN/CRE 33.0 RATIO High 10-20 [facility] Comment on above: Performed By: #### L 100.0100, L500.4050, L500.4100, L300.3900, L3300.0700, L300.4310 #### [facility] [address] [place], [address] CA,Total 9.2 mg/dL Normal 8.5-10.1 [facility] Comment on above: Performed By: #### L 100.0100, L500.4050, L500.4100, L300.3900, L3300.0700, L300.4310 #### [facility] [address] [place], [address] Chloride [Moles/Vol] 106 mmol/L Normal 98-107 [facility] Comment on above: Performed By: #### L 100.0100, L500.4050, L500.4100, L300.3900, L3300.0700, L300.4310 #### [facility] [address] [place], [address] CO2 [Moles/Vol] 24.0 mmol/L Normal 21.0-32.0 [facility] Comment on above: Performed By: #### L 100.0100, L500.4050, L500.4100, L300.3900, L3300.0700, L300.4310 #### [facility] [address] [place], [place], [phone] (474) Creatinine [Mass/Vol] 0.76 mg/dL Normal 0.55-1.02 [facility] Comment on above: Result Comment: The validity of the calculated GFR GFRAA in patients over 70 years has not been determined. Clinical correlation is essential. Performed By: #### L 100.0100, L500.4050, L500.4100, L300.3900, L3300.0700, L300.4310 #### [facility] [address] [place], [place], [id number] (876) EST GFR - AA 98 mL/min Normal >60 [facility] Comment on above: Result Comment: Afri can English GFR Calc Performed By: #### L 100.0100, L500.4050, L500.4100, L300.3900, L3300.0700, L300.4310 #### [facility] [address] [place], [place], [id number] (454) GAP 6 Normal 5-15 [facility] Comment on above: Performed By: #### L 100.0100, L500.4050, L500.4100, L300.3900, L3300.0700, L300.4310 #### [facility] [address] [place], [place], [id number] (833) GFR/1.73 sq M.predicted among non-blacks MDRD (S/P/Bld) [Vol rate/Area] 81 mL/min/{1.73_m2} Normal >60 [facility] Comment on above: Result Comment: Non- GFR Calc Performed By: #### L 100.0100, L500.4050, L500.4100, L300.3900, L3300.0700, L300.4310 #### [facility] [address] [place], [address] Globulin (S) [Mass/Vol] 4.9 g/dL High 2.2-4.2 [facility] Comment on above: Performed By: #### L 100.0100, L500.4050, L500.4100, L300.3900, L3300.0700, L300.4310 #### [facility] [address] [place], [address] Glucose [Mass/Vol] 157 mg/dL High 74-106 [facility] Comment on above: Result Comment: Fast ing Glucose result greater than or equal to 126 mg/dL suggests DIABETES MELLITUS per A.D.A. criteria. Performed By: #### L 100.0100, L500.4050, L500.4100, L300.3900, L3300.0700, L300.4310 #### [facility] [address] [place], [address] Potassium [Moles/Vol] 4.6 mmol/L Normal 3.5-5.1 [facility] Comment on above: Performed By: #### L 100.0100, L500.4050, L500.4100, L300.3900, L3300.0700, L300.4310 #### [facility] [address] [place], [address] Sodium [Moles/Vol] 136 mmol/L Normal 136-145 [facility] Comment on above: Performed By: #### L 100.0100, L500.4050, L500.4100, L300.3900, L3300.0700, L300.4310 #### [facility] [address] [place], [address] T PROT 7.7 g/dL Normal 6.4-8.2 [facility] Comment on above: Performed By: #### L 100.0100, L500.4050, L500.4100, L300.3900, L3300.0700, L300.4310 #### [facility] [address] [place], [address] Urea nitrogen [Mass/Vol] 25 mg/dL High 7-18 [facility] Comment on above: Performed By: #### L 100.0100, L500.4050, L500.4100, L300.3900, L3300.0700, L300.4310 #### [facility] [address] [place], [address] Lipid Profileon 11-18-2023 Cholesterol [Mass/Vol] 201 mg/dL High 200 [facility] Comment on above: Result Comment: <200 mg/dL Desirable 200-240 mg/dL Borderline >240 mg/dL High Risk Performed By: #### L 100.0100, L500.4050, L500.4100, L300.3900, L3300.0700, L300.4310 #### [facility] [address] [place], [place], [address] Cholesterol in HDL [Mass/Vol] 38 mg/dL Low [facility] Comment on above: Result Comment: The drugs N-Acetylcysteine and Metamizole may falsely depress this assay. Reference Range HDL <40 mg/dL Low HDL Cholesterol HDL >or= 60 mg/dL High HDL Cholesterol Performed By: #### L 100.0100, L500.4050, L500.4100, L300.3900, L3300.0700, L300.4310 #### [facility] [address] [place], [address] Cholesterol in LDL [Mass/Vol] 136 mg/dL High 0-130 [facility] Comment on above: Performed By: #### L 100.0100, L500.4050, L500.4100, L300.3900, L3300.0700, L300.4310 #### [facility] [address] [place], [address] Cholesterol in VLDL [Mass/Vol] 27 mg/dL Normal 5-40 [facility] Comment on above: Performed By: #### L 100.0100, L500.4050, L500.4100, L300.3900, L3300.0700, L300.4310 #### [facility] [address] [place], [address] Triglyceride [Mass/Vol] 134 mg/dL Normal [facility] Comment on above: Result Comment: The drugs N-Acetylcysteine and Metamizole may falsely depress this assay. Serum Triglycerides Reference Interval Normal <150 mg/dL Borderline high 150 - 199 mg/dL High 200 - 499 mg/dL Very High > or = 500 mg/dL Performed By: #### L 100.0100, L500.4050, L500.4100, L300.3900, L3300.0700, L300.4310 #### [facility] [address] [place], [address] Partial Thromboplast Timeon 11-18-2023 aPTT Coag (Bld) [Time] 26.7 s Normal 24.1-36.2 [facility] Comment on above: Performed By: #### L 100.0100, L500.4050, L500.4100, L300.3900, L3300.0700, L300.4310 #### [facility] [address] [place], [address] Prothrombin Time w/INRon INR Coag (PPP) [Relative time] 1.2 {INR} Normal [facility] Comment on above: Performed By: #### L 100.0100, L500.4050, L500.4100, L300.3900, L3300.0700, L300.4310 #### [facility] [address] [place], [address] PT Coag (PPP) [Time] 15.3 s High 11.7-14.9 [facility] Comment on above: Performed By: #### L 100.0100, L500.4050, L500.4100, L300.3900, L3300.0700, L300.4310 #### [facility] [address] [place], [address] [facility] 11-09-2023 CNPN Telephone (HEMAWS) ----- VANNESSA PRESTON ([id number]) 1955 F Date Time Provider Department 11/09/23 JEFFRY ROYAL During your visit today, we recorded the following information about you: Batsheva Gray 11/09/2023 1:46 PM Signed Patient called stating Dr. Pacheco was faxing labs to our office yesterday and would like patient to follow up with Mely Umanzor LPN 11/09/2023 1:52 PM Signed Haven't seen anything from that office, yesterday or today. Nothing in Care Everywhere. Pt notified. SOUMYA Marino Kara, LPN 11/09/2023 3:51 PM Signed labs received and given to Dr Royal to review. SOUMYA Marino Drew, MD 11/10/2023 9:36 AM Signed CBC October 2023 reviewed. 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 No follow up with me is needed. She needs to follow with hepatology re her cirrhosis. Jeffry Royal MD November 10, 2023 Mely Wadsworth LPN 11/10/2023 11:31 AM Signed Tried to call pt, no answer. Will print phone note and labs that were sent from Dr Pacheco to her PCP and see if they can assist her with a ref with hepatology if she doesn't already follow with one. SOUMYA Marino Stephanie 11/10/2023 11:44 AM Signed Patient called back and was advised below. Elayne Daniel Allergies As of Date: 11/09/2023 Noted Allergy Reaction LEVAQUIN (LEVOFLOXACIN) 05/18/2023 7 - Swelling SEPTRA (SULFAMETHOXAZOLE-TRIMETH O*09/19/2008 Date Reviewed: 05/18/2023 Reviewed by: Anayeli Camacho Ma, MA - Fully Assessed Reason for Visit: Appointment [186] Prescriptions as of 11/10/2023 - spironolactone (ALDACTONE) 100 mg tablet Take 100 mg by mouth once daily. - predniSONE (DELTASONE) 5 mg tablet Take 7.5 mg by mouth once daily. - azaTHIOprine (IMURAN) 50 mg tablet Take 75 mg by mouth once daily. - spironolactone (ALDACTONE) 25 mg tablet Take 25 mg by mouth once daily. - glipiZIDE (GLUCOTROL XL) 2.5 mg 24 hr tablet Take 2.5 mg by mouth once daily. - ferrous sulfate (IRON) 325 mg (65 mg iron) tablet Take two tablets by mouth once daily. - cholecalciferol (VITAMIN D-3) 50 mcg (2,000 unit) tablet Take 2,000 Units by mouth once daily. - carvedilol (COREG) 6.25 mg tablet Take 6.25 mg by mouth two times a day with meals. - pantoprazole DR (PROTONIX) 40 mg tablet Take 40 mg by mouth once daily. - metoprolol succinate(TOPROL XL 50 MG 24 HR TAB) Take one(1) tablet daily. - amlodipine besylate(NORVASC 10 MG TAB) Take one(1) tablet daily. - ezetimibe(ZETIA 10 MG TAB) Take 10 mg by mouth once daily. - risedronate sodium(ACTONEL 35 MG TAB) Take once per week in the morning with a full glass of water, on an empty stomach, and do not take anything else by mouth or lie down for the next 30 minutes. - PREDNISONE 10 MG TAB Take 5 mg by mouth once daily. ADMINISTER WITH FOOD 1.5 mg daily - calcium carbonate/vitamin d3(CALCIUM 500 + D 500 MG (1,250 MG)-200 UNIT TAB) Take one(1) tablet twice daily. 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/19/2008 Platelets decreased (HCC) [D69.6] 05/18/2023 Encounter Status:Closed by MELY WADSWORTH on 11/09/23 Normal [facility] Anti-dsDNA Abon 11-08-2023 ANTI-DNA (DS)AB 1 IU/mL Normal 0-9 [facility] Comment on above: Result Comment: Nega tive <5 Equivocal 5 - 9 Positive >9 Performed at: [facility] Lit Building Directory[address] [id number] Linter Tender: Chandler Brock PhD, Phone: [phone] Performed By: #### L 100.0100, L500.4050, L500.4100, L300.3900, L3300.0700, L300.4310 #### [facility] [address] [place], [address] Complement C3on 11-07-2023 COMP C3 101 mg/dL Normal 82-167 [facility] Comment on above: Result Comment: Perf ormed at: [facility] Lit Building [address] [id number] Linter Tender: Chandler Brock PhD, Phone: [phone] Performed By: #### L 400.0001, L3100.5800, L501.4100, L3100.5500, L100.0100, L501.1000, L3100.5700, L101.9900, L501.1105, L501.6710, L501.4405 ####[facility] [address] [place], [place], [phone] Complement C4on 11-07-2023 COMPLEMENT, C4 13 mg/dL Normal 12-38 [facility] Comment on above: Performed By: #### L 400.0001, L3100.5800, L501.4100, L3100.5500, L100.0100, L501.1000, L3100.5700, L101.9900, L501.1105, L501.6710, L501.4405 ####[facility] [address] [place], [place], [address] AST(SGOT)on 11-05-2023 AST [Catalytic activity/Vol] 33 U/L Normal 15-37 [facility] Comment on above: Performed By: #### L 400.0001, L3100.5800, L501.4100, L3100.5500, L100.0100, L501.1000, L3100.5700, L101.9900, L501.1105, L501.6710, L501.4405 ####[facility] [address] [place], [place], [address] Alanine Aminotransferas (SGP T)on 11-05-2023 ALT [Catalytic activity/Vol] 44 U/L Normal 13-56 [facility] Comment on above: Performed By: #### L 400.0001, L3100.5800, L501.4100, L3100.5500, L100.0100, L501.1000, L3100.5700, L101.9900, L501.1105, L501.6710, L501.4405 ####[facility] [address] [place], [place], [phone] BUNon 11-05-2023 Urea nitrogen [Mass/Vol] 25 mg/dL High 7-18 [facility] Comment on above: Performed By: #### L 400.0001, L3100.5800, L501.4100, L3100.5500, L100.0100, L501.1000, L3100.5700, L101.9900, L501.1105, L501.6710, L501.4405 ####[facility] [address] [place], [place], [phone] CBC W/Diff, Automatedon 10-14 PATH REV May foll Normal [facility] Comment on above: Order Comment: VALUE VERIFIED. CALLED TO DR. PACHECO11/05/23 Inés Calzada.RESULTS READ BACK BY SAME . Performed By: #### L 400.0001, L3100.5800, L501.4100, L3100.5500, L100.0100, L501.1000, L3100.5700, L101.9900, L501.1105, L501.6710, L501.4405 ####[facility] [address] [place], [place], [phone] SMEAR COMMENT SCANNED Normal [facility] Comment on above: Order Comment: VALUE VERIFIED. CALLED TO DR. PACHECO11/05/23 Inés Calzada.RESULTS READ BACK BY SAME . Result Comment: LYMP HOPENIA NOTED THROMBOCYTOPENIA NOTED Performed By: #### L 400.0001, L3100.5800, L501.4100, L3100.5500, L100.0100, L501.1000, L3100.5700, L101.9900, L501.1105, L501.6710, L501.4405 ####[facility] [address] [place], [address] CRPon 11-05-2023 C-REACTIVE PROT 17.80 mg/L High 0.0-3.0 [facility] Comment on above: Result Comment: C-Re active Protein (CRP) provides useful information for the diagnosis, therapy and monitoring of inflammatory processes and associated diseases. For the evaluation of Relative Risk for Cardiovascular Disease, a High Sensitivity CRP (HSCRP) should be ordered. Performed By: #### L 400.0001, L3100.5800, L501.4100, L3100.5500, L100.0100, L501.1000, L3100.5700, L101.9900, L501.1105, L501.6710, L501.4405 ####[facility] [address] [place], [address] Erythrocyte Sed Rateon 11-04 SED RATE 12 mm/hr Normal 0-30 [facility] Comment on above: Order Comment: VALUE VERIFIED. CALLED TO DR. PACHECO11/05/23 Inés Calzada.RESULTS READ BACK BY SAME . Performed By: #### L 400.0001, L3100.5800, L501.4100, L3100.5500, L100.0100, L501.1000, L3100.5700, L101.9900, L501.1105, L501.6710, L501.4405 ####[facility] [address] [place], [place], [phone] Serum Creatinine AND GFRon 0 - Creatinine [Mass/Vol] 1.04 mg/dL High 0.55-1.02 [facility] Comment on above: Result Comment: The validity of the calculated GFR GFRAA in patients over 70 years has not been determined. Clinical correlation is essential. Performed By: #### L 400.0001, L3100.5800, L501.4100, L3100.5500, L100.0100, L501.1000, L3100.5700, L101.9900, L501.1105, L501.6710, L501.4405 ####[facility] [address] [place], [place], [phone] EST GFR - AA 68 mL/min Normal >60 [facility] Comment on above: Result Comment: Afri can English GFR Calc Performed By: #### L 400.0001, L3100.5800, L501.4100, L3100.5500, L100.0100, L501.1000, L3100.5700, L101.9900, L501.1105, L501.6710, L501.4405 ####[facility] [address] [place], [place], [address] GFR/1.73 sq M.predicted among non-blacks MDRD (S/P/Bld) [Vol rate/Area] 56 mL/min/{1.73_m2} Low >60 [facility] Comment on above: Result Comment: Non- GFR Calc Performed By: #### L 400.0001, L3100.5800, L501.4100, L3100.5500, L100.0100, L501.1000, L3100.5700, L101.9900, L501.1105, L501.6710, L501.4405 ####[facility] [address] [place], [place], [address] Urinalysis, Completeon 11-04 BACTERIA 2+ /hpf Normal None Seen [facility] Comment on above: Order Comment: CLEAN CATCH Performed By: #### L 400.0001, L3100.5800, L501.4100, L3100.5500, L100.0100, L501.1000, L3100.5700, L101.9900, L501.1105, L501.6710, L501.4405 ####[facility] [address] [place], [place], [id number] EPI,SQUAMOUS 0-5 SEEN Normal 5-10 [facility] Comment on above: Order Comment: CLEAN CATCH Performed By: #### L 400.0001, L3100.5800, L501.4100, L3100.5500, L100.0100, L501.1000, L3100.5700, L101.9900, L501.1105, L501.6710, L501.4405 ####[facility] [address] [place], [place], [address] WBC 5-10 SEEN Normal 0-5 [facility] Comment on above: Order Comment: CLEAN CATCH Performed By: #### L 400.0001, L3100.5800, L501.4100, L3100.5500, L100.0100, L501.1000, L3100.5700, L101.9900, L501.1105, L501.6710, L501.4405 ####[facility] [address] [place], [place], [address] Mucus Ql (Urine sed) 0 SEEN Normal [facility] Comment on above: Order Comment: CLEAN CATCH Performed By: #### L 400.0001, L3100.5800, L501.4100, L3100.5500, L100.0100, L501.1000, L3100.5700, L101.9900, L501.1105, L501.6710, L501.4405 ####[facility] [address] [place], [address] RBC 0 SEEN Normal 0-5 [facility] Comment on above: Order Comment: CLEAN CATCH Performed By: #### L 400.0001, L3100.5800, L501.4100, L3100.5500, L100.0100, L501.1000, L3100.5700, L101.9900, L501.1105, L501.6710, L501.4405 ####[facility] [address] [place], [address] Dexa Bone Density Studyon Dexa Bone Density Study [facility] [address] [place] [address] Dexa Bone Density Study MR#: [id number] Acct: [id number] Name: VANNESSA PRESTON Rep #: [id number] : 1955 F 68 From: Umer doyle MD PCP: Dr. Saritha Coles, DO Status: REG I Study: Dexa Bone Density Study Date of Exam: 10/05/23 Exam# [id number] Ordering Dr: Chandler Yancey MD [id number] STUDY: DUAL ENERGY X-RAY ABSORPTIOMETRY / DXA REASON FOR EXAM: Female, 68 years old. Z79.52 TECHNIQUE: Bone Mineral Density (BMD) measurements of lumbar spine and bilateral hips were obtained. COMPARISON: Comparison is made with prior study dated September 30, 2021. FINDINGS: Lumbar Spine (L1-L4): g/cm2 (0.960) / T-score (-0.8) / Z-score (1.1) Findings are suggestive of normal bone density with a low fracture risk. Left Femur Total: g/cm2 (0.551) / T-score (-3.2) / Z-score (-1.9) Left Femoral Neck: g/cm2 (0.434) / T-score (-3.7) / Z-score (-2.1) Right Femur Total: g/cm2 (0.565) / T-score (-3.1) / Z-score (-1.7) Right Femoral Neck: g/cm2 (0.504) / T-score (-3.1) / Z-score (-1.5) The T-Scores on the most recent prior examination were: Lumbar Spine (L1-L4): There has been worsening of bone density since the previous examination. Left Femur Total: which represents a worsening of 10.9. Right Femur Total: which represents a worsening of 11.6%. BD/Dexa Bone Density Study IMPRESSION: The patient is considered osteoporotic as outlined below according to World [employer] Organization (WHO) criteria with a high fracture risk. There has been worsening of bone density since the previous examination. Reference Information: The T-score is the number of standard deviations above or below the standard which is normal for young adults at their peak bone mineral density. The World Health Organization (WHO) interprets the T-scores as follows: Above -1 Normal bone density Between -1 and -2.5 Osteopenia Equal to / or below -2.5 Osteoporosis As a practical clinical guideline, osteopenia may be graded as follows: Mild -1 through -1.5 Moderate -1.6 through -2.0 Severe -2.1 through -2.4 The Z-score is the number of standard deviations above or below age-matched controls. A Z-score of less than -1.5 would be considered abnormal. References: 1. NIH Osteoporosis and Related Bone Diseases www osteo.org 2. International Society for Clinical Densitometry www iscd.org 3. National Osteoporosis Foundation www nof.org Electronically Signed: Umer Meier MD at 10:27 EDT , CC: Dr. Saritha Coles, DO; Dr. Chandler Yancey MD Hearing Consultant: Signed Normal [facility] HbA1c (Bld) [Mass fraction]o n 10-04-2023 Average glucose Estimated from glycated hemoglobin (Bld) [Mass/Vol] 169 mg/dL Normal Not Established [facility] Comment on above: Order Comment: Diagn osis of Diabetes-Adults Non-Diabetic: < or = 5.6% Increased risk for developing diabetes: 5.7-6.4% Diagnostic of diabetes: > or = 6.5% Performed By: #### 4 548-4 #### HAO DIAS ([id number]) [facility] ([facility]) [facility] [place] [address] Hemoglobin A1c/Hemoglobin.to randall 10-04-2023 HbA1c (Bld) [Mass fraction] 7.5 % High see below [facility] Comment on above: Order Comment: Diagn osis of Diabetes-Adults Non-Diabetic: < or = 5.6% Increased risk for developing diabetes: 5.7-6.4% Diagnostic of diabetes: > or = 6.5% Performed By: #### 4 548-4 #### HAO DIAS (73006) [facility] ([facility]) [facility] [place] [id number] Lipid 1996 panelon 4 Cholesterol [Mass/Vol] 203 mg/dL High 0-199 [facility] Comment on above: Result Comment: Age Desirable Borderline High High 0-19 Y 0 - 169 170 - 199 >/= 200 20-24 Y 0 - 189 190 - 224 >/= 225 >24 Y 0 - 199 200 - 239 >/= 240 All ranges are based on fasting samples. Specific therapeutic targets will vary based on patient-specific cardiac risk. Pediatric guidelines reference:Pediatrics 2011, 128(S5).Adult guidelines reference: NCEP ATPIII Guidelines,REJI 2001, 258:2486-97 Venipuncture immediately after or during the administration of Metamizole may lead to falsely low results. Testing should be performed immediately prior to Metamizole dosing. Performed By: #### 2 4331-1 #### HAO DIAS ([id number]) [facility] ([facility]) [facility] [place] [address] Cholesterol in HDL [Mass/Vol] 44.0 mg/dL Normal [facility] Comment on above: Result Comment: Age Very Low Low Normal High 0-19 Y < 35 < 40 40-45 ---- 20-24 Y ---- < 40 >45 ---- >24 Y ---- < 40 40-60 >60 Performed By: #### 2 4331-1 #### HAO DIAS (54832) [facility] ([facility]) [facility] [place] [address] Cholesterol in LDL [Mass/Vol] 130 mg/dL High <=99 [facility] Comment on above: Result Comment: Near Borderline AGE Desirable Optimal High High Very High 0-19 Y 0 - 109 --- 110-129 >/= 130 ---- 20-24 Y 0 - 119 --- 120-159 >/= 160 ---- >24 Y 0 - 99 100-129 130-159 160-189 >/=190 Performed By: #### 2 4331-1 #### HAO DIAS (97856) [facility] ([facility]) [facility] [place] [address] Cholesterol in VLDL [Mass/Vol] 29 mg/dL Normal 0-40 [facility] Comment on above: Performed By: #### 2 4331-1 #### HAO DIAS (65220) [facility] ([facility]) [facility] [place] [address] CHOLESTEROL/HDL RATIO 4.6 Normal [facility] Comment on above: Result Comment: Ref Values Desirable < 3.4 High Risk > 5.0 Performed By: #### 2 4331-1 #### HAO DIAS (23658) [facility] ([facility]) [address] [place] [address] NON HDL CHOLESTEROL 159 mg/dL High 0-149 [facility] Comment on above: Result Comment: Age Desirable Borderline High High Very High 0-19 Y 0 - 119 120 - 144 >/= 145 >/= 160 20-24 Y 0 - 149 150 - 189 >/= 190 ---- >24 Y 30 mg/dL above LDL Cholesterol goal Performed By: #### 2 4331-1 #### HAO DIAS ([id number]) [facility] ([facility]) [address] [place] [address] Triglyceride [Mass/Vol] 146 mg/dL Normal 0-149 [facility] Comment on above: Result Comment: Age Desirable Borderline High High Very High 0 D-90 D 19 - 174 ---- ---- ---- 91 D- 9 Y 0 - 74 75 - 99 >/= 100 ---- 10-19 Y 0 - 89 90 - 129 >/= 130 ---- 20-24 Y 0 - 114 115 - 149 >/= 150 ---- >24 Y 0 - 149 150 - 199 200- 499 >/= 500 Venipuncture immediately after or during the administration of Metamizole may lead to falsely low results. Testing should be performed immediately prior to Metamizole dosing. Performed By: #### 2 4331-1 #### HAO DIAS (18457) [facility] ([facility]) [address] [place] [address] TSH WITH REFLEX TO FREE T4 I F ABNORMALon 10-04-2023 TSH Qn 5.57 m[IU]/L High 0.44-3.98 [facility] Comment on above: Order Comment: TSH t esting is performed using different testing methodology at [facility] than at other [facility]. Direct result comparisons should only be made within the same method. Performed By: #### T HYDS #### HAO DIAS ([id number]) [facility] ([facility]) [address] [place] [address] Thyroxine.freeon 10-04-2023 Free T4 [Mass/Vol] 0.96 ng/dL Normal 0.61-1.12 [facility] Comment on above: Order Comment: Thyro xine Free testing is performed using different testing methodology at [facility] than at other [facility]. Direct result comparisons should only be made within the same method. Biotin can cause falsely elevated free T4 results. Patients taking a Biotin dose of up to 10 mg/day should refrain from taking Biotin for 24 hours before sample collection. Patient taking a Biotin dose of >10 mg/day should consult with their physician or the laboratory before the blood draw. Performed By: #### 3 024-7 #### HAO DIAS ([id number]) [facility] ([facility]) [address] [place] [address] HbA1c (Bld) [Mass fraction]o n 06-18-2023 Average glucose Estimated from glycated hemoglobin (Bld) [Mass/Vol] 163 mg/dL Normal Not Established [facility] Comment on above: Order Comment: Diagn osis of Diabetes-Adults Non-Diabetic: < or = 5.6% Increased risk for developing diabetes: 5.7-6.4% Diagnostic of diabetes: > or = 6.5% Monitoring of Diabetes Age (y)....................... Therapeutic Goal (%) Adults: >18.........................<7.0 Pediatrics: 13-18...................<7.5 Pediatrics: 7-12....................<8.0 Pediatrics: 0-6..................... 7.5-8.5 [employer]. Diabetes Care 33(S1), Mar 2009 Performed By: #### 4 548-4 #### HAO DIAS ([id number]) [facility] ([facility]) [address] [place] [address] Hemoglobin A1c/Hemoglobin.to randall 06-18-2023 HbA1c (Bld) [Mass fraction] 7.3 % High see below [facility] Comment on above: Order Comment: Diagn osis of Diabetes-Adults Non-Diabetic: < or = 5.6% Increased risk for developing diabetes: 5.7-6.4% Diagnostic of diabetes: > or = 6.5% Monitoring of Diabetes Age (y)....................... Therapeutic Goal (%) Adults: >18.........................<7.0 Pediatrics: 13-18...................<7.5 Pediatrics: 7-12....................<8.0 Pediatrics: 0-6..................... 7.5-8.5 [employer]. Diabetes Care 33(S1)Mar 2009 Performed By: #### 4 548-4 #### HAO DIAS ([id number]) [facility] ([facility]) [address] [place] [address] TSH WITH REFLEX TO FREE T4 I F ABNORMALon 06-18-2023 TSH Qn 3.47 m[IU]/L Normal 0.44-3.98 [facility] Comment on above: Order Comment: TSH t esting is performed using different testing methodology at [facility] than at other [facility]. Direct result comparisons should only be made within the same method. Performed By: #### T HYDS #### HAO DIAS ([id number]) [facility] ([facility]) [facility] [place] [address] Activated partial thrombopla stin time (aPTT) in platelet poor plasma by coagulation aOrdered By: Chandler Yancey on 06-03-2023 aPTT Coag (PPP) [Time] 26.0 s 24.1-36.2 [facility] Basophil percentageOrdered B y: Chandler Yancey on 06-03-2023 Bilirubin [Mass/Vol] 0.80 mg/dL 0.20-1.00 [facility] Comment on above: For patients on eltr ombopag therapy, use of Dimension [place] TBIL is not recommended. Chloride [Moles/Vol] 106 mmol/L 98-107 [facility] Glucose [Mass/Vol] 110 mg/dL 74-106 [facility] Comment on above: Fasting Glucose resu lt from 100 to 125 mg/dL suggests IMPAIRED HOMEOSTASIS per A.D.A. criteria. Hemoglobin (Bld) [Mass/Vol] 13.2 g/dL 12.0-15.0 [facility] Potassium [Moles/Vol] 4.2 mmol/L 3.5-5.1 [facility] Protein [Mass/Vol] 8.3 g/dL 6.4-8.2 [facility] Sodium [Moles/Vol] 138 mmol/L 136-145 [facility] WBC (Bld) [#/Vol] 3.4 10*3/uL 4.4-11.0 [facility] Determination of erythrocyte mean corpuscular volume (MCV)Ordered By: Chandler Yancey on 06-03-2023 MCV (RBC) [Entitic vol] 90.3 fL 81-99 [facility] Erythrocyte distribution wid th ratioOrdered By: Chandler Yancey on 06-03-2023 Erythrocyte distribution width (RBC) [Ratio] 17.0 % 11.6-14.6 [facility] Erythrocyte distribution wid th standard deviationOrdered By: Chandler Yancey on 06-03-2023 Erythrocyte distribution width (RBC) [Entitic vol] 56.4 fL 35.1-43.9 [facility] Hematocrit Auto (Bld) [Volum e fraction]Ordered By: Chandler Yancey on 06-03-2023 Hematocrit (Bld) [Volume fraction] 42.0 % 37-47 [facility] Laboratory - Chemistry and C hemistry - challengeOrdered By: Chandler Yancey on 06-03-2023 Albumin/Globulin [Mass ratio] 0.6 {ratio} 0.9-2.4 [facility] ALP [Catalytic activity/Vol] 155 U/L 45-117 [facility] ALT [Catalytic activity/Vol] 46 U/L 13-56 [facility] CO2 [Moles/Vol] 27.0 mmol/L 21.0-32.0 [facility] Globulin (S) [Mass/Vol] 5.2 g/dL 2.2-4.2 [facility] Urea nitrogen/Creatinine [Mass ratio] 38.2 mg/mg 10-20 [facility] Laboratory - CoagulationOrde red By: Chandler Yancey on 06-03-2023 INR Coag (Bld) [Relative time] 1.2 {INR} [facility] PT Coag (PPP) [Time] 14.9 s 11.7-14.9 [facility] Laboratory - Hematology and Cell countsOrdered By: Chandler Yancey on 06-03-2023 MCH (RBC) [Entitic mass] 28.4 pg 27.0-32.0 [facility] MCHC (RBC) [Mass/Vol] 31.4 g/dL 32-36 [facility] Platelets (Bld) [#/Vol] 60 10*3/uL 150-450 [facility] No Panel InformationOrdered By: Chandler Yancey on 06-03-2023 Estimated GFR (MDRD) Amer 79 mL/min >60 [facility] Comment on above: GFR Calc Estimated GFR (MDRD) Non-Af Amer 65 mL/min >60 [facility] Comment on above: Non- GFR Calc Tumor Marker Alpha Fetoprotein 2.0 ng/mL 0.0-9.2 [facility] Comment on above: [facility] El ectrochemiluminescence Immunoassay(ECLIA)Values obtained with different assay methods or kits cannotbe used interchangeably. Results cannot be interpreted asabsolute evidence of the presence or absence of malignantdisease.This test is not interpretable in females.Performed at: - [address] [id number] Director: Chandler Brock PhD, Phone: [phone] RBC Auto (Bld) [#/Vol]Ordere d By: Chandler Yancey on 06-03-2023 RBC (Bld) [#/Vol] 4.65 10*6/uL 4.2-5.4 [facility] Serum or plasma calcium diana urement (mass/volume)Ordered By: Chandler Yancey on 06-03-2023 Calcium [Mass/Vol] 9.5 mg/dL 8.5-10.1 [facility] Serum or plasma creatinine m easurement (mass/volume)Ordered By: Chandler Yancey on 06-03-2023 Creatinine [Mass/Vol] 0.92 mg/dL 0.55-1.02 [facility] Comment on above: The validity of the calculated GFR & GFRAA in patients over 70 years has not been determined. Clinical correlation is essential. Serum or plasma urea nitroge n measurement (mass/volume)Ordered By: Chandler Yancey on 06-03-2023 Urea nitrogen [Mass/Vol] 35 mg/dL 7-18 [facility] Thin prep Papanicolaou smear with manual screeningOrdered By: Chandler Yancey on 06-03-2023 Thin prep Papanicolaou smear with manual screening 3.1 g/dL 3.2-5.0 [facility] Thin prep Papanicolaou smear with manual screening 28 U/L 15-37 [facility] Thin prep Papanicolaou smear with manual screening 5 5-15 [facility] CBC W Auto Differential pane l (Bld)on 05-18-2023 Basophils (Bld) [#/Vol] 10*3/uL Normal <0.11 [facility] Comment on above: Order Comment: Speci men Type: BLOOD SPECIMEN Ordering Facility: [facility] Address: [address] [place] [address] Performed By: #### 5 7021-8, 37702-7 #### [facility] CLIA [id number] [address] [place] [address] [place] Basophils/100 WBC (Bld) 0.3 % Normal [facility] Comment on above: Order Comment: Speci men Type: BLOOD SPECIMEN Ordering Facility: [facility] Address: [address] [place] [address] Performed By: #### 5 7021-8, 07714-4 #### [facility] CLIA [id number] [address] [place] [address] [place] Differential cell count method Nom (Bld) Auto Normal [facility] Comment on above: Order Comment: Speci men Type: BLOOD SPECIMEN Ordering Facility: [facility] Address: [address] [place] [address] Performed By: #### 5 7021-8, 51148-9 #### [facility] CLIA [id number] [address] [place] [address] [place] Eosinophils (Bld) [#/Vol] 10*3/uL Normal <0.46 [facility] Comment on above: Order Comment: Speci men Type: BLOOD SPECIMEN Ordering Facility: [facility] Address: [address] [place] [address] Performed By: #### 5 7021-8, 63622-7 #### [facility] CLIA [id number] [address] [place] [address] [place] Eosinophils/100 WBC (Bld) 0.0 % Normal [facility] Comment on above: Order Comment: Speci men Type: BLOOD SPECIMEN Ordering Facility: [facility] Address: [address] [place] [address] Performed By: #### 5 7021-8, 13351-1 #### [facility] CLIA [id number] [address] [place] [address] [place] Erythrocyte distribution width (RBC) [Ratio] 17.2 % High 11.5-15.0 [facility] Comment on above: Order Comment: Speci men Type: BLOOD SPECIMEN Ordering Facility: [facility] Address: [address] [place] [address] Performed By: #### 5 7021-8, 32789-9 #### [facility] CLIA [id number] [address] [place] [address] [place] Hematocrit (Bld) [Volume fraction] 38.0 % Normal 36.0-46.0 [facility] Comment on above: Order Comment: Speci men Type: BLOOD SPECIMEN Ordering Facility: [facility] Address: [address] [place] [id number] Performed By: #### 5 7021-8, 59648-8 #### [facility] CLIA [id number] [address] [place] [address] [place] Hemoglobin (Bld) [Mass/Vol] 12.1 g/dL Normal 11.5-15.5 [facility] Comment on above: Order Comment: Speci men Type: BLOOD SPECIMEN Ordering Facility: [facility] Address: [address] [place], [place] [address] Performed By: #### 5 7021-8, 24818-2 #### [facility] CLIA [id number] [address] [place] [address] [place] Immature granulocytes (Bld) [#/Vol] 0.04 10*3/uL Normal <0.10 [facility] Comment on above: Order Comment: Speci men Type: BLOOD SPECIMEN Ordering Facility: [facility] Address: [address] [place], [place] [address] Performed By: #### 5 7021-8, 53992-6 #### [facility] CLIA [id number] [address] [place] [address] [place] Immature granulocytes/100 WBC (Bld) 1.0 % Normal [facility] Comment on above: Order Comment: Speci men Type: BLOOD SPECIMEN Ordering Facility: [facility] Address: [address] [place], [place] [address] Performed By: #### 5 7021-8, 48109-4 #### [facility] CLIA [id number] [address] [place] [address] [place] Lymphocytes (Bld) [#/Vol] 0.09 10*3/uL Low 1.00-4.00 [facility] Comment on above: Order Comment: Speci men Type: BLOOD SPECIMEN Ordering Facility: [facility] Address: [facility] [place] [address] Performed By: #### 5 7021-8, 62153-5 #### [facility] CLIA [id number] [address] [place] [address] [place] Lymphocytes/100 WBC (Bld) 2.3 % Normal [facility] Comment on above: Order Comment: Speci men Type: BLOOD SPECIMEN Ordering Facility: [facility] Address: [address] [place] [address] Performed By: #### 5 7021-8, 09640-6 #### [facility] CLIA [id number] [address] [place] [address] [place] MCH (RBC) [Entitic mass] 28.3 pg Normal 26.0-34.0 [facility] Comment on above: Order Comment: Speci men Type: BLOOD SPECIMEN Ordering Facility: [facility] Address: [address] [place] [address] Performed By: #### 5 7021-8, 18084-6 #### [facility] CLIA [id number] [address] [place] [address] [place] MCHC (RBC) [Mass/Vol] 31.8 g/dL Normal 30.5-36.0 [facility] Comment on above: Order Comment: Speci men Type: BLOOD SPECIMEN Ordering Facility: [facility] Address: [address] [place] [address] Performed By: #### 5 7021-8, 32898-3 #### [facility] CLIA [id number] [address] [place] [address] [place] MCV (RBC) [Entitic vol] 88.8 fL Normal 80.0-100.0 [facility] Comment on above: Order Comment: Speci men Type: BLOOD SPECIMEN Ordering Facility: [facility] Address: [address] [place] [address] Performed By: #### 5 7021-8, 39521-8 #### [facility] CLIA [id number] [address] [place] [address] [place] Monocytes (Bld) [#/Vol] 0.34 10*3/uL Normal <0.87 [facility] Comment on above: Order Comment: Speci men Type: BLOOD SPECIMEN Ordering Facility: [facility] Address: [address] [place] [address] Performed By: #### 5 7021-8, 50161-4 #### [facility] CLIA [id number] [address] [place] [address] [place] Monocytes/100 WBC (Bld) 8.8 % Normal [facility] Comment on above: Order Comment: Speci men Type: BLOOD SPECIMEN Ordering Facility: [facility] Address: [address] [place] [address] Performed By: #### 5 7021-8, 92992-7 #### [facility] CLIA [id number] [address] [place] [address] [place] Neutrophils (Bld) [#/Vol] 3.39 10*3/uL Normal 1.45-7.50 [facility] Comment on above: Order Comment: Speci men Type: BLOOD SPECIMEN Ordering Facility: [facility] Address: [address] [place] [address] Performed By: #### 5 7021-8, 58296-7 #### [facility] CLIA [id number] [address] [place] [address] [place] Neutrophils/100 WBC (Bld) 87.6 % Normal [facility] Comment on above: Order Comment: Speci men Type: BLOOD SPECIMEN Ordering Facility: [facility] Address: [address] [place] [address] Performed By: #### 5 7021-8, 90376-2 #### [facility] CLIA [id number] [address] [place] [address] [place] Nucleated RBC (Bld) [#/Vol] 10*3/uL Normal <0.01 [facility] Comment on above: Order Comment: Speci men Type: BLOOD SPECIMEN Ordering Facility: [facility] Address: [address] [place] [address] Performed By: #### 5 7021-8, 23183-7 #### [facility] CLIA [id number] [address] [place] [address] [place] Nucleated RBC/100 WBC (Bld) [Ratio] 0.0 /100 WBC Normal [facility] Comment on above: Order Comment: Speci men Type: BLOOD SPECIMEN Ordering Facility: [facility] Address: [address] [place] [address] Performed By: #### 5 7021-8, 24601-8 #### [facility] CLIA [id number] [address] [place] [address] [place] Platelet mean volume (Bld) [Entitic vol] 12.1 fL Normal 9.0-12.7 [facility] Comment on above: Order Comment: Speci men Type: BLOOD SPECIMEN Ordering Facility: [facility] Address: [address] [place] [address] Performed By: #### 5 7021-8, 25475-4 #### [facility] CLIA [id number] [address] [place] [address] [place] Platelets (Bld) [#/Vol] 52 10*3/uL Low 150-400 [facility] Comment on above: Order Comment: Speci men Type: BLOOD SPECIMEN Ordering Facility: [facility] Address: [address] [place] [address] Result Comment: No c lot detected. Performed By: #### 5 7021-8, 93569-9 #### [facility] CLIA [id number] [address] [place] [address] [place] RBC (Bld) [#/Vol] 4.28 10*6/uL Normal 3.90-5.20 [facility] Comment on above: Order Comment: Speci ralph Type: BLOOD SPECIMEN Ordering Facility: [facility] Address: [address] [place] [address] Performed By: #### 5 7021-8, 25949-1 #### [facility] CLIA [id number] [address] [place] [address] [place] WBC (Bld) [#/Vol] 3.87 10*3/uL Normal 3.70-11.00 [facility] Comment on above: Order Comment: Specluan rosas Type: BLOOD SPECIMEN Ordering Facility: [facility] Address: [address] [place] [address] Performed By: #### 5 7021-8, 52551-7 #### [facility] CLIA [id number] [address] [place] [address] [place] CNOVSPon 05-18-2023 CNOVSP Visit (SP) Office ([facility]MAWS) ----- VANNESSA PRESTON ([id number]) 1955 F Date Time Provider Department 05/18/23 9:00 AM JEFFRY ROYAL During your visit today, we recorded the following information about you: Temperature Pulse Blood pressure Weight 98 degrees 90/minute 122/75 53.8 kg Height 1.448 m Jeffry Royal MD 05/18/2023 1:46 PM Signed HISTORY OF PRESENT ILLNESS: Vannessa Preston is a 67 year old female. Referred back for evaluation of thrombocytopenia. Labs reviewed, history of auto immune hepatitis and hepatic cirrhosis reviewed, also use of immunosuppressive meds, imuran. Doing ok, no clinical changes. Reviewed physiology of portal hypertension as we see evidence of this on US. Bleeding ulcer November 2022, needed transfusion. Was in [facility], had scope. CLINICAL IMPRESSION: Chronic thrombocytopenia, also leukopenia, relates to portal hypertension and hypersplenism. No intervention or further work up, other than updating vitamin levels RECOMMENDATION/PLAN: 1. Labs drawn today 2. Follow up as needed unless vitamin supplementation is needed. Written and verbal health teaching given to patient, patient verbalizes understanding and agrees with treatment plan. PAST MEDICAL HISTORY Diagnosis Date Diabetes (HCC) Hepatitis, unspecified Autoimmune Lupus erythematosus Other and unspecified hyperlipidemia Rheumatoid arthritis (HCC) Unspecified essential hypertension PAST SURGICAL HISTORY Procedure Laterality Date DILATION AND CURETTAGE DXAND/THER NONOBSTETRIC Dilation AND curettage EGD W/O BRSH SPEC VARICIES INJ RMVL SEC MEMBRANOUS CTRC CORNEO-SCLL SCTJ Cataract removal right and left FAMILY HISTORY Problem Relation Age of Onset Heart Mother Diabetes Mother Diabetes Father Alzheimer's Disease Sister Heart Attack Brother Social History Tobacco Use Smoking status: Former Packs/day: .5 Types: Cigarettes Quit date: 10/02/2007 Years since quittin.6 Smokeless tobacco: Never Tobacco comments: Pt smoked on AND off x 10 years ALLERGIES: ALLERGIES Allergen Reactions Levaquin [Levofloxa* Swelling Septra [Sulfamethox* CURRENT OUTPATIENT MEDICATIONS: spironolactone (ALDACTONE) 100 mg tablet Take 100 mg by mouth once daily. predniSONE (DELTASONE) 5 mg tablet Take 7.5 mg by mouth once daily. azaTHIOprine (IMURAN) 50 mg tablet Take 75 mg by mouth once daily. glipiZIDE (GLUCOTROL XL) 2.5 mg 24 hr tablet Take 2.5 mg by mouth once daily. ferrous sulfate (IRON) 325 mg (65 mg iron) tablet Take two tablets by mouth once daily. cholecalciferol (VITAMIN D-3) 50 mcg (2,000 unit) tablet Take 2,000 Units by mouth once daily. carvedilol (COREG) 6.25 mg tablet Take 6.25 mg by mouth two times a day with meals. ezetimibe(ZETIA 10 MG TAB) Take 10 mg by mouth once daily. spironolactone (ALDACTONE) 25 mg tablet Take 25 mg by mouth once daily. pantoprazole DR (PROTONIX) 40 mg tablet Take 40 mg by mouth once daily. metoprolol succinate(TOPROL XL 50 MG 24 HR TAB) Take one(1) tablet daily. amlodipine besylate(NORVASC 10 MG TAB) Take one(1) tablet daily. risedronate sodium(ACTONEL 35 MG TAB) Take once per week in the morning with a full glass of water, on an empty stomach, and do not take anything else by mouth or lie down for the next 30 minutes. PREDNISONE 10 MG TAB Take 5 mg by mouth once daily. ADMINISTER WITH FOOD 1.5 mg daily calcium carbonate/vitamin d3(CALCIUM 500 + D 500 MG (1,250 MG)-200 UNIT TAB) Take one(1) tablet twice daily. REVIEW OF SYSTEMS: GENERAL: No fever, night sweats, weight loss or malaise. All other reviewed and negative other than HPI. PHYSICAL EXAMINATION: VITAL SIGNS: BP 122/75 Pulse 90 Temp (Src) 98 (Temporal) Ht 4' 9 (1.45m) Wt 118 lb 8 oz (53.8kg) SpO2 99% BMI 25.64 kg/(m2). GENERAL APPEARANCE: Well appearing, in no acute distress, alert and oriented x3, well-hydrated, well nourished. I spent a total of 45 minutes on the date of the service which included preparing to see the patient, [id number] patient care, completing clinical documentation, obtaining and/or reviewing separately obtained history, counseling and educating the patient/family/caregiver, ordering medications, tests, or procedures, independently interpreting results (not separately reported), and communicating results to the patient/family/caregiver. Electronically Signed: Jeffry Royal MD May 18, 2023 9:33 AM Referring Provider: SELF [200] Allergies As of Date: 05/18/2023 Noted Allergy Reaction LEVAQUIN (LEVOFLOXACIN) 05/18/2023 7 - Swelling SEPTRA (SULFAMETHOXAZOLE-TRIMETH O*09/19/2008 Date Reviewed: 05/18/2023 Reviewed by: Anayeli Camacho Ma MA - Fully Assessed Reason for Visit: New Patient Evaluation [154] Primary Visit Diagnosis:Anemia, unspecified type [D64.9] Other Visit Diagnoses:Secondary thrombocytopenia [D69 (more content not included)... Normal [facility] Ferritin SerPl-mCncon 2023 Ferritin [Mass/Vol] 121.0 ng/mL Normal 14.7-205.1 [facility] Comment on above: Order Comment: Speci men Type: BLOOD SPECIMEN Ordering Facility: [facility] Address: [address] [place] [address] Performed By: #### 5 0190-8, 9, 2275-06, 2283-10 #### [facility] CLIA [id number] [address] [place] [address] [place] Folate SerPl-mCncon 05-18-19 Folate [Mass/Vol] 18.1 ng/mL Normal >4.7 [facility] Comment on above: Order Comment: Speci men Type: BLOOD SPECIMEN Ordering Facility: [facility] Address: [address] [place] [address] Performed By: #### 5 0190-8, 2131-11, 2275-06, 2283-10 #### [facility] CLIA [id number] [address] [place] [address] [place] Iron and Iron binding capaci ty panelon 05-18-2023 Iron [Mass/Vol] 77 ug/dL Normal 41-186 [facility] Comment on above: Order Comment: Speci men Type: BLOOD SPECIMEN Ordering Facility: [facility] Address: [address] [place] [address] Performed By: #### 5 0190-8, 2131-11, 2275-06, 2283-10 #### [facility] CLIA [id number] [address] [place] [address] [place] Iron binding capacity [Mass/Vol] 305 ug/dL Normal 232-386 [facility] Comment on above: Order Comment: Speci men Type: BLOOD SPECIMEN Ordering Facility: [facility] Address: [address] [place] [address] Performed By: #### 5 0190-8, 2131-11, 2275-06, 2283-10 #### [facility] CLIA [id number] [address] [place] [address] [place] Iron/TIBC [Molar ratio] 25.2 % Normal 15.0-57.0 [facility] Comment on above: Order Comment: Speci men Type: BLOOD SPECIMEN Ordering Facility: [facility] Address: [address] [place] [address] Performed By: #### 5 0190-8, 9, 2275-06, 2283-10 #### [facility] CLIA [id number] [address] [place], [place] [address] [place] [address] [place] Retics #on 05-18-2023 Reticulocytes (Bld) [#/Vol] 0.23695 10*3/uL Normal 0.018-0.100 [facility] Comment on above: Order Comment: Speci men Type: BLOOD SPECIMEN Ordering Facility: [facility] Address: [address] [place] [address] Performed By: #### 5 7021-8, 63626-9 #### [facility] CLIA [id number] [address] [place] [address] [place] Reticulocytes (Bld) [#/Vol]o n 05-18-2023 Reticulocytes/100 RBC (Bld) 1.5 % Normal 0.4-2.0 [facility] Comment on above: Order Comment: Speci men Type: BLOOD SPECIMEN Ordering Facility: [facility] Address: [address] [place] [address] Performed By: #### 5 7021-8, 90218-8 #### [facility] CLIA [id number] [address] [place] [address] [place] Vit B12 SerPl-mCncon 024 Cobalamin (Vitamin B12) [Mass/Vol] 1048 pg/mL Normal 232-1245 [facility] Comment on above: Order Comment: Speci men Type: BLOOD SPECIMEN Ordering Facility: [facility] Address: [address] [place] [address] Performed By: #### 5 0190-8, 9, 2275-06, 2283-10 #### [facility] CLIA [id number] [address] [id number] [place] Macrina 04-05-2023 CNPN Telephone (ROSIBEL) ----- VANNESSA PRESTON ([id number]) 1955 F Date Time Provider Department 04/05/23 JEFFRY ROYAL During your visit today, we recorded the following information about you: Batsheva Gray 04/05/2023 4:28 PM Signed First attempt to contact patient to schedule new patient appt with Dr. Royal for low platelets. New patient folder located in hemon office beside fax machine Batsheva Gray 04/05/2023 4:28 PM Signed Scheduled with patient. Amanda Doran 04/20/2023 9:43 AM Signed Patient was scheduled with Dr. Royal on 04/15. Patient called to reschedule. Patient scheduled on 04/30. Allergies As of Date: 04/05/2023 Noted Allergy Reaction SEPTRA (SULFAMETHOXAZOLE-TRIMETH O*09/19/2008 Date Reviewed: 09/19/2008 Reviewed by: Silvestre Garrison, Lauren Navas - Reviewed Reason for Visit: New Patient [172] Prescriptions as of 04/20/2023 - azaTHIOprine (IMURAN) 50 mg tablet Take 75 mg by mouth once daily. - spironolactone (ALDACTONE) 25 mg tablet Take 25 mg by mouth once daily. - glipiZIDE (GLUCOTROL XL) 2.5 mg 24 hr tablet Take 2.5 mg by mouth once daily. - ferrous sulfate (IRON) 325 mg (65 mg iron) tablet Take 325 mg by mouth once daily. 2 P.O. daily - cholecalciferol (VITAMIN D-3) 50 mcg (2,000 unit) tablet Take 2,000 Units by mouth once daily. - carvedilol (COREG) 6.25 mg tablet Take 6.25 mg by mouth two times a day with meals. - pantoprazole DR (PROTONIX) 40 mg tablet Take 40 mg by mouth once daily. - metoprolol succinate(TOPROL XL 50 MG 24 HR TAB) Take one(1) tablet daily. - amlodipine besylate(NORVASC 10 MG TAB) Take one(1) tablet daily. - ezetimibe(ZETIA 10 MG TAB) Take one(1) tablet daily. - risedronate sodium(ACTONEL 35 MG TAB) Take once per week in the morning with a full glass of water, on an empty stomach, and do not take anything else by mouth or lie down for the next 30 minutes. - PREDNISONE 10 MG TAB Take 5 mg by mouth once daily. ADMINISTER WITH FOOD 1.5 mg daily - calcium carbonate/vitamin d3(CALCIUM 500 + D 500 MG (1,250 MG)-200 UNIT TAB) Take one(1) tablet twice daily. Problem List As Of Date 04/05/2023 Noted Resolved SECONDARY THROMBOCYTOPENIA [287.4] 09/19/2008 Encounter Status:Closed by SILVIA ODOM on 04/05/23 Normal [facility] Absolute lymphocyte countOrd ered By: TARA DEAL on 03-30-2023 Lymphocytes Auto (Unsp spec) [#/Vol] 0.09 10*3/uL 0.83-4.51 [facility] Automated lymphocyte count a s percentage of total leukocytesOrdered By: TARA DEAL on 03-30-2023 Lymphocytes/100 WBC Auto (Unsp spec) 3.1 % 19-41 [facility] Basophil percentageOrdered B y: TARA DEAL on 03-30-2023 Basophil percentage 5-10 SEEN /hpf 0-5 [facility] Basophils/100 WBC (Bld) 0.3 % 0-1 [facility] Eosinophils/100 WBC (Bld) 0.0 % 0-5 [facility] Hemoglobin (Bld) [Mass/Vol] 11.8 g/dL 12.0-15.0 [facility] Monocytes/100 WBC (Bld) 6.6 % 0-10 [facility] Neutrophils (Bld) [#/Vol] 2.6 10*3/uL 2.0-7.7 [facility] Neutrophils/100 WBC (Bld) 89.3 % 47-70 [facility] WBC (Bld) [#/Vol] 2.9 10*3/uL 4.4-11.0 [facility] Bilirubin Test strip Ql (U)O rdered By: TARA DEAL on 03-30-2023 Bilirubin Ql (U) Negative Negative [facility] Blood manual differential co mment interpretation (narrative result)Ordered By: TARA DEAL on 03-30-2023 Manual differential comment Bruce (Bld) [Interp] SEE COMMENTS [facility] Comment on above: LYMPHOPENIA NOTEDTHR OMBOCYTOPENIA NOTED Blood platelet adequacy dete ction by light microscopyOrdered By: TARA DEAL on 03-30-2023 Platelets LM Ql (Bld) MKD DEC ADEQ [facility] Complement C3 assayOrdered B y: TARA DEAL on 03-30-2023 Complement C3 (Body fld) [Mass/Vol] 92 mg/dL 82-167 [facility] Comment on above: Performed at: [address] [id number] Director: Chandler Brock PhD, Phone: [phone] Determination of erythrocyte mean corpuscular volume (MCV)Ordered By: TARA DEAL on 03-30-2023 MCV (RBC) [Entitic vol] 88.2 fL 81-99 [facility] Erythrocyte distribution wid th ratioOrdered By: TARA DEAL on 03-30-2023 Erythrocyte distribution width (RBC) [Ratio] 17.1 % 11.6-14.6 [facility] Erythrocyte distribution wid th standard deviationOrdered By: TARA DEAL on 03-30-2023 Erythrocyte distribution width (RBC) [Entitic vol] 54.8 fL 35.1-43.9 [facility] Erythrocyte sedimentation ra teOrdered By: TARA DEAL on 03-30-2023 ESR (Bld) [Velocity] 49 mm/h 0-30 [facility] Hematocrit Auto (Bld) [Volum e fraction]Ordered By: TARA DEAL on 03-30-2023 Hematocrit (Bld) [Volume fraction] 38.9 % 37-47 [facility] Hypochromatic red blood cell detectionOrdered By: TARA DEAL on 03-30-2023 Hypochromia Ql (Bld) [facility] Immature granulocytes/100 WB C Auto (Bld)Ordered By: TARA DEAL on 03-30-2023 Immature granulocytes/100 WBC (Bld) 0.700 % 0.0-0.9 [facility] Comment on above: IG% - Immature Granu locytes (promyelocytes, myelocytes and metamyelocytes) > 1% indicates that a LEFT SHIFT is Present. Ketones Test strip Ql (U)Ord ered By: TARA DEAL on 03-30-2023 Ketones Ql (U) 5 mg/dl Negative [facility] Laboratory - Chemistry and C hemistry - challengeOrdered By: TARA DEAL on 03-30-2023 ALT [Catalytic activity/Vol] 44 U/L 13-56 [facility] Laboratory - Hematology and Cell countsOrdered By: TARA DEAL on 03-30-2023 Anisocytosis Ql (Bld) [facility] MCH (RBC) [Entitic mass] 26.8 pg 27.0-32.0 [facility] MCHC (RBC) [Mass/Vol] 30.3 g/dL 32-36 [facility] Nucleated RBC/100 WBC (Bld) [Ratio] 0 % 0-5 [facility] Platelets (Bld) [#/Vol] 50 10*3/uL 150-450 [facility] Comment on above: RESULTS @TO HIS OFFI CE [facility] 03-30-23 AT 1826PMMAFPrevious reported result: 50 [id number] by: MIL on 03/30/23:1825Previous reported result: 50 [id number] by: MIL on 03/30/23:1946 Macrocytes detectionOrdered By: TARA DEAL on 03-30-2023 Macrocytes Ql (Bld) [facility] Mucus LM Ql (Urine sed)Order ed By: TARA DEAL on 03-30-2023 Mucus Ql (Urine sed) 0 SEEN /hpf [facility] Nitrite Test strip Ql (U)Ord ered By: TARA DEAL on 01-16-2024 Nitrite Ql (U) Negative Negative [facility] No Panel InformationOrdered By: TARA DEAL on 03-30-2023 C-Reactive Protein Extended Range 14.30 mg/L 0.0-3.0 [facility] Comment on above: C-Reactive Protein ( CRP) provides useful information for thediagnosis, therapy and monitoring of inflammatory processesand associated diseases. For the evaluation of Relative Riskfor Cardiovascular Disease, a High Sensitivity CRP (HSCRP)should be ordered. Estimated GFR (MDRD) Amer 85 mL/min >60 [facility] Comment on above: GFR Calc Estimated GFR (MDRD) Non-Af Amer 70 mL/min >60 [facility] Comment on above: Non- GFR Calc Urine RBC 0 SEEN /hpf 0-5 [facility] Platelet mean volume Dusty-Ec ker (Bld) [Entitic vol]Ordered By: TARA DEAL on 03-30-2023 Platelet mean volume (Bld) [Entitic vol] TNP [facility] Comment on above: Test not performed Protein Test strip Ql (U)Ord ered By: TARA DEAL on 03-30-2023 Protein Ql (U) 15 mg/dl Negative [facility] RBC Auto (Bld) [#/Vol]Ordere d By: TARA DEAL on 03-30-2023 RBC (Bld) [#/Vol] 4.41 10*6/uL 4.2-5.4 [facility] RBC morphologyOrdered By: RA STAR DEAL on 03-30-2023 RBC morphology finding Nom (Bld) N CHROM NORMAL NORM C&C [facility] Review by pathologistOrdered By: TARA DEAL on 03-30-2023 Pathologist review Bruce (Unsp spec) [Interp] Reviewed [facility] Comment on above: Previous reported re sult: Suki murdock Edited by: RGOYIMI on 04/01/23:932Pancytopenia.Leukopenia and Neutropenia.Normocytic anemia.ThrombocytopeniaClinical correlation necessary.Saud Acosta M.D. 04/01/23 AMENDED REPORT 04/01/23 09 PATH REV previously reported as: Suki murdock Serum DNA double strand anti body assay (units/volume)Ordered By: TARA DEAL on 03-30-2023 DNA double strand Ab Qn (S) 1 [IU]/mL 0-9 [facility] Comment on above: Negative <5 Equivoca l 5 - 9 Positive >9Performed at: [facility] [address] [id number] [place], [place] [id number] Director: Chandler Brock PhD, Phone: [phone] Serum or plasma complement C 4 measurement (mass/volume)Ordered By: TARA DEAL on 03-30-2023 Complement C4 [Mass/Vol] 14 mg/dL 12-38 [facility] Serum or plasma creatinine m easurement (mass/volume)Ordered By: TARA DEAL on 03-30-2023 Creatinine [Mass/Vol] 0.86 mg/dL 0.55-1.02 [facility] Comment on above: The validity of the calculated GFR & GFRAA in patients over 70 years has not been determined. Clinical correlation is essential. Serum or plasma urea nitroge n measurement (mass/volume)Ordered By: TARA DEAL on 03-30-2023 Urea nitrogen [Mass/Vol] 26 mg/dL 7-18 [facility] Squamous epithelial cells de tection in urine sediment by light microscopyOrdered By: TARA DEAL on 03-30-2023 Epithelial cells.squamous LM Ql (Urine sed) 5-10 SEEN /hpf 5-10 [facility] Thin prep Papanicolaou smear with manual screeningOrdered By: TARA DEAL on 03-30-2023 Thin prep Papanicolaou smear with manual screening 31 U/L 15-37 [facility] Urine blood detectionOrdered By: TARA DEAL on 03-30-2023 RBC Ql (U) 10 /ul Negative [facility] Urine clarityOrdered By: MIRNA DEAL on 03-30-2023 Clarity (U) Clear Clear [facility] Urine color determinationOrd ered By: TARA DEAL on 03-30-2023 Color (U) Yellow Yellow [facility] Urine glucose detectionOrder ed By: TARA DEAL on 03-30-2023 Glucose Ql (U) Normal mg/dl Normal [facility] Urine leukocyte esterase det ection by dipstickOrdered By: TARA DEAL on 03-30-2023 Leukocyte esterase Test strip Ql (U) 500 /ul Negative [facility] Urine pHOrdered By: TARA CARTAGENA on 03-30-2023 pH (U) 5.0 [pH] 5.0 - 8.0 [facility] Urine sediment bacteria coun t by microscopy (number/high power field)Ordered By: TARA DEAL on 03-30-2023 Bacteria LM.HPF (Urine sed) [#/Area] 0 /[HPF] None Seen [facility] Urine sediment renal epithel ial cell count by microscopy (number/high power field)Ordered By: TARA DEAL on 03-30-2023 Epithelial cells.renal LM.HPF (Urine sed) [#/Area] 5 /[HPF] 0-5 [facility] Urine specific gravity measu rementOrdered By: TARA DEAL on 03-30-2023 Specific gravity (U) [Rel density] 1.015 1.002-1.030 [facility] Urine urobilinogen measureme ntOrdered By: TARA DEAL on 03-30-2023 Urobilinogen Ql (U) Normal mg/dl Normal [facility] Basophil percentageOrdered B y: Chandler Yancey on 02-10-2023 Bilirubin [Mass/Vol] 0.50 mg/dL 0.20-1.00 [facility] Comment on above: For patients on eltr ombopag therapy, use of Dimension [place] TBIL is not recommended. Chloride [Moles/Vol] 107 mmol/L 98-107 [facility] Glucose [Mass/Vol] 148 mg/dL 74-106 [facility] Comment on above: Fasting Glucose resu lt greater than or equal to 126 mg/dL suggests DIABETES MELLITUS per A.D.A. criteria. Potassium [Moles/Vol] 4.7 mmol/L 3.5-5.1 [facility] Protein [Mass/Vol] 7.8 g/dL 6.4-8.2 [facility] Sodium [Moles/Vol] 137 mmol/L 136-145 [facility] WBC (Bld) [#/Vol] 2.9 10*3/uL 4.4-11.0 [facility] Blood erythrocytes count (nu mber/volume)Ordered By: Chandler Yancey on 02-10-2023 RBC (Bld) [#/Vol] 4.30 10*6/uL 4.2-5.4 [facility] Blood hemoglobin measurement (mass/volume)Ordered By: Chandler Yancey on 02-10-2023 Hemoglobin (Bld) [Mass/Vol] 11.1 g/dL 12.0-15.0 [facility] Blood platelet mean volumeOr dered By: Chandler Yancey on 02-10-2023 Platelet mean volume (Bld) [Entitic vol] TNP [facility] Comment on above: Test not performed Determination of erythrocyte mean corpuscular volume (MCV)Ordered By: Chandler Yancey on 02-10-2023 MCV (RBC) [Entitic vol] 88.1 fL 81-99 [facility] Hematocrit Auto (Bld) [Volum e fraction]Ordered By: Chandler Yancey on 02-10-2023 Hematocrit (Bld) [Volume fraction] 37.9 % 37-47 [facility] INR in Blood by Coagulation assayOrdered By: Chandler Yancey on 02-10-2023 INR Coag (Bld) [Relative time] 1.2 {INR} [facility] Laboratory - Chemistry and C hemistry - challengeOrdered By: Chandler Yancey on 02-10-2023 ALP [Catalytic activity/Vol] 192 U/L 45-117 [facility] ALT [Catalytic activity/Vol] 37 U/L 13-56 [facility] CO2 [Moles/Vol] 27.0 mmol/L 21.0-32.0 [facility] Globulin (S) [Mass/Vol] 4.8 g/dL 2.2-4.2 [facility] Urea nitrogen/Creatinine [Mass ratio] 39.6 mg/mg 10-20 [facility] Laboratory - CoagulationOrde red By: Chandler Yancey on 02-10-2023 PT Coag (PPP) [Time] 15.2 s 11.7-14.9 [facility] - Hematology and Cell countsOrdered By: Chandler Yancey on 02-10-2023 Erythrocyte distribution width (RBC) [Entitic vol] 59.7 fL 35.1-43.9 [facility] Erythrocyte distribution width (RBC) [Ratio] 18.3 % 11.6-14.6 [facility] MCH (RBC) [Entitic mass] 25.8 pg 27.0-32.0 [facility] MCHC Auto (RBC) [Mass/Vol]Or dered By: Chandler Yancey on 02-10-2023 MCHC (RBC) [Mass/Vol] 29.3 g/dL 32-36 [facility] No Panel InformationOrdered By: Chandler Yancey on 02-10-2023 Estimated GFR (MDRD) Amer 98 mL/min >60 [facility] Comment on above: GFR Calc Estimated GFR (MDRD) Non-Af Amer 81 mL/min >60 [facility] Comment on above: Non- GFR Calc Platelets bldOrdered By: Mac Yancey on 02-10-2023 Platelets (Bld) [#/Vol] 52 10*3/uL 150-450 [facility] Serum or plasma albumin diana urement (mass/volume)Ordered By: Chandler Yancey on 02-10-2023 Albumin [Mass/Vol] 3.0 g/dL 3.2-5.0 [facility] Serum or plasma albumin/glob ulin mass ratioOrdered By: Chandler Yancey on 02-10-2023 Albumin/Globulin [Mass ratio] 0.6 {ratio} 0.9-2.4 [facility] Serum or plasma [id number] protein tumor marker measurement (units/volume)Ordered By: Chandler Yancey on 02-10-2023 AFP.tumor marker Qn 2.1 ng/mL 0.0-9.2 [facility] Comment on above: [facility] El ectrochemiluminescence Immunoassay(ECLIA)Values obtained with different assay methods or kits cannotbe used interchangeably. Results cannot be interpreted asabsolute evidence of the presence or absence of malignantdisease.This test is not interpretable in females.Performed at: [address] [id number] Director: Chandler Brock PhD, Phone: [phone] Serum or plasma calcium diana urement (mass/volume)Ordered By: Chandler Yancey on 11-29-2023 Calcium [Mass/Vol] 8.7 mg/dL 8.5-10.1 [facility] Serum or plasma creatinine m easurement (mass/volume)Ordered By: Chandler Yancey on 02-10-2023 Creatinine [Mass/Vol] 0.76 mg/dL 0.55-1.02 [facility] Comment on above: The validity of the calculated GFR & GFRAA in patients over 70 years has not been determined. Clinical correlation is essential. Serum or plasma urea nitroge n measurement (mass/volume)Ordered By: Chandler Yancey on 02-10-2023 Urea nitrogen [Mass/Vol] 30 mg/dL 7-18 [facility] Thin prep Papanicolaou smear with manual screeningOrdered By: Chandler Yancey on 02-10-2023 Thin prep Papanicolaou smear with manual screening 27 U/L 15-37 [facility] Thin prep Papanicolaou smear with manual screening 3 5-15 [facility] Absolute lymphocyte countOrd ered By: Chris Chatterjee on 11-29-2022 Lymphocytes Auto (Unsp spec) [#/Vol] 0.19 10*3/uL 0.83-4.51 [facility] Basophil percentageOrdered B y: Chris Chatterjee on 11-29-2022 Basophils/100 WBC (Bld) 0.3 % 0-1 [facility] Chloride [Moles/Vol] 116 mmol/L 98-107 [facility] Eosinophils/100 WBC (Bld) 0.1 % 0-5 [facility] Glucose [Mass/Vol] 141 mg/dL 74-106 [facility] Comment on above: Fasting Glucose resu lt greater than or equal to 126 mg/dL suggests DIABETES MELLITUS per A.D.A. criteria. Neutrophils (Bld) [#/Vol] 6.6 10*3/uL 2.0-7.7 [facility] Neutrophils/100 WBC (Bld) 89.3 % 47-70 [facility] Potassium [Moles/Vol] 3.5 mmol/L 3.5-5.1 [facility] Sodium [Moles/Vol] 140 mmol/L 136-145 [facility] WBC (Bld) [#/Vol] 7.4 10*3/uL 4.4-11.0 [facility] Blood erythrocytes count (nu mber/volume)Ordered By: Chris Chatterjee on 11-29-2022 RBC (Bld) [#/Vol] 2.90 10*6/uL 4.2-5.4 [facility] Blood hemoglobin measurement (mass/volume)Ordered By: Chris Chatterjee on 11-29-2022 Hemoglobin (Bld) [Mass/Vol] 8.5 g/dL 12.0-15.0 [facility] Blood lymphocytes/100 leukoc ytesOrdered By: Chris Chatterjee on 11-29-2022 Lymphocytes/100 WBC (Bld) 2.6 % 19-41 [facility] Blood monocytes/100 leukocyt esOrdered By: Chris Chatterjee on 11-29-2022 Monocytes/100 WBC (Bld) 6.8 % 0-10 [facility] Blood platelet adequacy dete ction by light microscopyOrdered By: Chris Chatterjee on 11-29-2022 Platelets LM Ql (Bld) MKD DEC ADEQ [facility] Blood platelet mean volumeOr dered By: Chris Chatterjee on 11-29-2022 Platelet mean volume (Bld) [Entitic vol] 13.5 fL 6.2-12.0 [facility] Determination of erythrocyte mean corpuscular volume (MCV)Ordered By: Chris Chatterjee on 11-29-2022 MCV (RBC) [Entitic vol] 93.1 fL 81-99 [facility] Glucose Glucometer (dC) [M ass/Vol]Ordered By: Chris Chatterjee on 11-29-2022 Glucose [Mass/Vol] 152 mg/dL 74-106 [facility] Comment on above: MANAGEMENT OF PATIEN T CARE PER NURSING PROTOCOL Hematocrit Auto (Bld) [Volum e fraction]Ordered By: Chris Chatterjee on 11-29-2022 Hematocrit (Bld) [Volume fraction] 27.2 % 37-47 [facility] Laboratory - Chemistry and C hemistry - challengeOrdered By: Chris Chatterjee on 11-29-2022 CO2 [Moles/Vol] 18.0 mmol/L 21.0-32.0 [facility] Urea nitrogen/Creatinine [Mass ratio] 26.2 mg/mg 10-20 [facility] Laboratory - Hematology and Cell countsOrdered By: Chris Chatterjee on 11-29-2022 Erythrocyte distribution width (RBC) [Entitic vol] 63.5 fL 35.1-43.9 [facility] Erythrocyte distribution width (RBC) [Ratio] 18.9 % 11.6-14.6 [facility] Immature granulocytes/100 WBC (Bld) 0.900 % 0.0-0.9 [facility] Comment on above: IG% - Immature Granu locytes (promyelocytes, myelocytes and metamyelocytes) > 1% indicates that a LEFT SHIFT is Present. MCH (RBC) [Entitic mass] 27.9 pg 27.0-32.0 [facility] Nucleated RBC/100 WBC (Bld) [Ratio] 2.0 % 0-5 [facility] MCHC Auto (RBC) [Mass/Vol]Or dered By: Chris Chatterjee on 11-29-2022 MCHC (RBC) [Mass/Vol] 30.0 g/dL 32-36 [facility] Comment on above: Delta: 27.8 on 11/27 No Panel InformationOrdered By: Chris Chatterjee on 11-29-2022 Estimated Creatinine Clearance Calc 47.08 ml/min [facility] Estimated GFR (MDRD) Amer 97 mL/min >60 [facility] Comment on above: GFR Calc Estimated GFR (MDRD) Non-Af Amer 80 mL/min >60 [facility] Comment on above: Non- GFR Calc Platelets bldOrdered By: Oswaldo Chatterjee on 11-29-2022 Platelets (Bld) [#/Vol] 48 10*3/uL 150-450 [facility] Review by pathologistOrdered By: Chris Chatterjee on 11-29-2022 Pathologist review Bruce (Unsp spec) [Interp] Suki murdock [facility] Pathologist review Bruce (Unsp spec) [Interp] Reviewed [facility] Comment on above: Previous reported re sult: Suki murdock Edited by: RGOOD on 11/30/22:1341Normocytic anemia.Marked Thrombocytopenia.Clinical correlation necessary.Saud Acosta M.D. 11/30/22 AMENDED REPORT 11/30/22 1341 PATH REV previously reported as: July mathieu Serum or plasma calcium diana urement (mass/volume)Ordered By: Chris Chatterjee on 11-29-2022 Calcium [Mass/Vol] 7.2 mg/dL 8.5-10.1 [facility] Serum or plasma creatinine m easurement (mass/volume)Ordered By: Chris Chatterjee on 11-29-2022 Creatinine [Mass/Vol] 0.76 mg/dL 0.55-1.02 [facility] Comment on above: The validity of the calculated GFR & GFRAA in patients over 70 years has not been determined. Clinical correlation is essential. Serum or plasma urea nitroge n measurement (mass/volume)Ordered By: Chris Chatterjee on 11-29-2022 Urea nitrogen [Mass/Vol] 20 mg/dL - [facility] Thin prep Papanicolaou smear with manual screeningOrdered By: Chris Chatterjee on 11-29-2022 Thin prep Papanicolaou smear with manual screening 6 - [facility] Laboratory - Chemistry and C hemistry - challengeOrdered By: Tomer Lew on 11-28-2022 Cobalamin (Vitamin B12) [Mass/Vol] 690 pg/mL 211-911 [facility] Basophil percentageOrdered B y: Ronnie Jeff on 11-27-2022 Basophil percentage 10-25 SEEN /hpf 0-5 [facility] Bilirubin [Mass/Vol] 0.70 mg/dL 0.20-1.00 [facility] Comment on above: For patients on eltr ombopag therapy, use of Dimension [place] TBIL is not recommended. Protein [Mass/Vol] 6.4 g/dL 6.4-8.2 [facility] Bilirubin Test strip Ql (U)O rdered By: Ronnie Jeff on 11-27-2022 Bilirubin Ql (U) Negative Negative [facility] Blood manual differential co mment interpretation (narrative result)Ordered By: Ronnie Jeff on 11-27-2022 Manual differential comment Bruce (Bld) [Interp] SEE COMMENTS [facility] Comment on above: LYMPHOPENIA NOTEDTHR OMBOCYTOPENIA NOTED Blood polychromasia detectio n by light microscopyOrdered By: Ronnie Jeff on 11-27-2022 Polychromasia LM Ql (Bld) RARE [facility] Hemoglobin in reticulocytes (mass per reticulocyte)Ordered By: Tomer Lew on 11-27-2022 Hemoglobin (Reticulocytes) [Entitic mass] 21.8 pg 30-35 [facility] Hypochromatic red blood cell detectionOrdered By: Ronnie Jeff on 11-27-2022 Hypochromia Ql (Bld) 1+ [facility] Influenza virus A and B and SARS-CoV-2 (COVID-19) Ag panel - Upper respiratory specimOrdered By: Ronnie Jeff on 11-27-2022 SARS-CoV-2 (COVID-19) RNA AILEEN+probe Ql (Resp) [facility] SARS-CoV-2 (COVID-19) RNA AILEEN+probe Ql (Resp) [facility] Iron measurement (mass/mass) Ordered By: Tomer Lew on 11-27-2022 Iron (Unsp spec) [Mass/Mass] 17 ug/dL 50-170 [facility] Ketones Test strip Ql (U)Ord ered By: Ronnie Jeff on 11-27-2022 Ketones Ql (U) 5 mg/dl Negative [facility] Laboratory - Chemistry and C hemistry - challengeOrdered By: Ronnie Jeff on 11-27-2022 ALP [Catalytic activity/Vol] 123 U/L 45-117 [facility] ALT [Catalytic activity/Vol] 27 U/L 13-56 [facility] Globulin (S) [Mass/Vol] 3.8 g/dL 2.2-4.2 [facility] Laboratory - Hematology and Cell countsOrdered By: Ronnie Jeff on 11-27-2022 Anisocytosis Ql (Bld) 1+ [facility] Lower GI hemoglobin IA Ql (S tl)Ordered By: Ronnie Jeff on 11-27-2022 Stool Occult Blood (FREDERICK) Positive [facility] Stool Occult Blood (FREDERICK) Positive [facility] Macrocytes detectionOrdered By: Ronnie Jeff on 11-27-2022 Macrocytes Ql (Bld) 1+ [facility] Mucus LM Ql (Urine sed)Order ed By: Ronnie Jeff on 11-27-2022 Mucus Ql (Urine sed) 0 SEEN /hpf [facility] Nitrite Test strip Ql (U)Ord ered By: Ronnie Jeff on 11-27-2022 Nitrite Ql (U) Negative Negative [facility] No Panel InformationOrdered By: Ronnie Jeff on 11-27-2022 Acanthocytes RARE [facility] Troponin I High Sensitivity 13 pg/mL 3.0-54.0 [facility] Comment on above: Please Note: [place] t Units and Gender Specific Reference Ranges. For more information see Policy Stat Procedure [place] High Sensitivity Troponin (TNIH) and attachments. No Panel InformationOrdered By: Tomer Lew on 11-27-2022 Immature Platelet Fraction 10.8 % 1.0-7.9 [facility] Comment on above: Low PLT + Low IPF main ggest a bone marrow production disorderLow PLT + high IPF suggests peripheral destruction(e.g.ITP, TTP, HIT, DIC, autoimmune) or bone marrow recoveryTrending of serial IPF measurements is recommended when evaluating for bone marrow responesValue above normal range indicates an increase in RBC cellular response from bone marrow. Immature Reticulocyte Fraction 36.90 % 3.00-15.90 [facility] Reticulocyte Count 7.78 % 0.5-1.5 [facility] Total Iron Binding Capacity 285 ug/dL 250-450 [facility] Ovalocyte detectionOrdered B y: Ronnie Jeff on 11-27-2022 Ovalocytes LM Ql (Bld) RARE [facility] Protein Test strip Ql (U)Ord ered By: Ronnie Jeff on 11-27-2022 Protein Ql (U) Negative Negative [facility] RBC morphologyOrdered By: Do adelia Jeff on 11-27-2022 RBC morphology finding Nom (Bld) N CHROM NORMAL NORM C&C [facility] Serum or plasma albumin diana urement (mass/volume)Ordered By: Ronnie Jeff on 11-27-2022 Albumin [Mass/Vol] 2.6 g/dL 3.2-5.0 [facility] Serum or plasma albumin/glob ulin mass ratioOrdered By: Ronnie Jeff on 11-27-2022 Albumin/Globulin [Mass ratio] 0.7 {ratio} 0.9-2.4 [facility] Serum or plasma ferritin chepe surement (mass/volume)Ordered By: Tomer Lew on 11-27-2022 Ferritin [Mass/Vol] 50 ng/mL 8 [facility] Serum or plasma folate measu rement (mass/volume)Ordered By: Tomer Lew on 11-27-2022 Folate [Mass/Vol] 19.20 ng/mL 3.1-55.4 [facility] Serum or plasma iron saturat ion measurement (mass fraction)Ordered By: Tomer Lew on 11-27-2022 Iron saturation [Mass fraction] 6.0 % 15.0-55.0 [facility] Squamous epithelial cells de tection in urine sediment by light microscopyOrdered By: Ronnie Jeff on 11-27-2022 Epithelial cells.squamous LM Ql (Urine sed) 0-5 SEEN /hpf 5-10 [facility] Thin prep Papanicolaou smear with manual screeningOrdered By: Ronnie Jeff on 11-27-2022 Thin prep Papanicolaou smear with manual screening 18 U/L 15-37 [facility] Urine blood detectionOrdered By: Ronnie Jeff on 11-27-2022 RBC Ql (U) Negative Negative [facility] RBC Ql (U) 0 SEEN /hpf 0-5 [facility] Urine clarityOrdered By: Ant Jeff on 11-27-2022 Clarity (U) Clear Clear [facility] Urine color determinationOrd ered By: Ronnie Jeff on 11-27-2022 Color (U) Yellow Yellow [facility] Urine glucose detectionOrder ed By: Ronnie Jeff on 11-27-2022 Glucose Ql (U) 1000 mg/dl Normal [facility] Urine leukocyte esterase det ection by dipstickOrdered By: Ronnie Jeff on 11-27-2022 Leukocyte esterase Test strip Ql (U) 500 /ul Negative [facility] Urine pHOrdered By: Ronnie ashley on 11-27-2022 pH (U) 6.0 [pH] 5.0 - 8.0 [facility] Urine sediment bacteria coun t by microscopy (number/high power field)Ordered By: Ronnie Jeff on 11-27-2022 Bacteria LM.HPF (Urine sed) [#/Area] RARE /hpf None Seen [facility] Urine specific gravity measu rementOrdered By: Ronnie Jeff on 11-27-2022 Specific gravity (U) [Rel density] 1.020 1.002-1.030 [facility] Urobilinogen Auto test strip Ql (U)Ordered By: Ronnie Jeff on 11-27-2022 Urobilinogen Ql (U) Normal mg/dl Normal [facility] Basophil percentageOrdered B y: Gina Dexter on 09-21-2022 Bilirubin [Mass/Vol] 0.60 mg/dL 0.20-1.00 [facility] Comment on above: For patients on eltr ombopag therapy, use of Dimension [place] TBIL is not recommended. Chloride [Moles/Vol] 107 mmol/L 98-107 [facility] Glucose [Mass/Vol] 181 mg/dL 74-106 [facility] Comment on above: Fasting Glucose resu lt greater than or equal to 126 mg/dL suggests DIABETES MELLITUS per A.D.A. criteria. Potassium [Moles/Vol] 4.1 mmol/L 3.5-5.1 [facility] Protein [Mass/Vol] 8.0 g/dL 6.4-8.2 [facility] Sodium [Moles/Vol] 137 mmol/L 136-145 [facility] DNAon 09-21-2022 ds DNA Ab Neg 10 Normal Neg 10 [facility] ([place]) Comment on above: Result Comment: DNA Screen and Titer methodology is an immunofluorescent technique utilizing Crithidia luciliae Substrate. Performed By: #### D NONI, C3C4A #### [address] [address] Direct bilirubinOrdered By: Gina Dexter on 09-21-2022 Bilirubin.direct [Mass/Vol] 0.29 mg/dL 0.00-0.30 [facility] INR in Blood by Coagulation assayOrdered By: Gina Dexter on 09-21-2022 INR Coag (Bld) [Relative time] 1.2 {INR} [facility] Laboratory - Chemistry and C hemistry - challengeOrdered By: Gina Dexter on 09-21-2022 ALP [Catalytic activity/Vol] 189 U/L 45-117 [facility] ALT [Catalytic activity/Vol] 46 U/L 13-56 [facility] CO2 [Moles/Vol] 24.0 mmol/L 21.0-32.0 [facility] Globulin (S) [Mass/Vol] 5.2 g/dL 2.2-4.2 [facility] Urea nitrogen/Creatinine [Mass ratio] 29.1 mg/mg 10-20 [facility] Laboratory - CoagulationOrde red By: Gina Dexter on 09-21-2022 PT Coag (PPP) [Time] 14.7 s 11.7-14.9 [facility] No Panel InformationOrdered By: Gina Dexter on 09-21-2022 Estimated GFR (MDRD) Amer 81 mL/min >60 [facility] Comment on above: GFR Calc Estimated GFR (MDRD) Non-Af Amer 67 mL/min >60 [facility] Comment on above: Non- GFR Calc Serum or plasma albumin diana urement (mass/volume)Ordered By: Gina Dexter on 09-21-2022 Albumin [Mass/Vol] 2.8 g/dL 3.2-5.0 [facility] Serum or plasma albumin/glob ulin mass ratioOrdered By: Gina chan on 09-21-2022 Albumin/Globulin [Mass ratio] 0.5 {ratio} 0.9-2.4 [facility] Serum or plasma [id number] protein tumor marker measurement (units/volume)Ordered By: Gina Dexter on 09-21-2022 AFP.tumor marker Qn < 1.8 ng/mL 0.0-9.2 [facility] Comment on above: [employer] El ectrochemiluminescence Immunoassay(ECLIA)Values obtained with different assay methods or kits cannotbe used interchangeably. Results cannot be interpreted asabsolute evidence of the presence or absence of malignantdisease.This test is not interpretable in females.Performed at: [facility] Lit Building Directory[address] [id number] Director: Chandler Brock PhD, Phone: [phone] Serum or plasma calcium diana urement (mass/volume)Ordered By: Gina Dexter on 09-21-2022 Calcium [Mass/Vol] 8.7 mg/dL 8.5-10.1 [facility] Serum or plasma creatinine m easurement (mass/volume)Ordered By: Gina Dexter on 09-21-2022 Creatinine [Mass/Vol] 0.89 mg/dL 0.55-1.02 [facility] Comment on above: The validity of the calculated GFR & GFRAA in patients over 70 years has not been determined. Clinical correlation is essential. Serum or plasma urea nitroge n measurement (mass/volume)Ordered By: Gina Dexter on 09-21-2022 Urea nitrogen [Mass/Vol] 26 mg/dL 09-29 [facility] Thin prep Papanicolaou smear with manual screeningOrdered By: Gina Dexter on 09-21-2022 Thin prep Papanicolaou smear with manual screening 36 U/L [facility] Thin prep Papanicolaou smear with manual screening 6 5-15 [facility] [id number] 09-18-2022 Complement C3A 98.0 mg/dL Normal 90.0-170.0 [facility] ([place]) Comment on above: Result Comment: No te - New Reference Range in effect 19 Performed By: #### D NA, C3C4A #### [address] [address] Complement C4A 17.0 mg/dL Normal 16.0-38.0 [facility] ([place]) Comment on above: Performed By: #### D NA, C3C4A #### [address] [address] Basophil percentageOrdered B y: TARA DEAL on 09-02-2022 WBC (Bld) [#/Vol] 3.9 10*3/uL 4.4-11.0 [facility] Blood erythrocytes count (nu mber/volume)Ordered By: TARA DEAL on 09-02-2022 RBC (Bld) [#/Vol] 4.50 10*6/uL 4.2-5.4 [facility] Blood hemoglobin measurement (mass/volume)Ordered By: TARA DEAL on 09-02-2022 Hemoglobin (Bld) [Mass/Vol] 12.6 g/dL 12.0-15.0 [facility] Blood platelet mean volumeOr dered By: ATRA DEAL on 09-02-2022 Platelet mean volume (Bld) [Entitic vol] 13.0 fL 6.2-12.0 [facility] Determination of erythrocyte mean corpuscular volume (MCV)Ordered By: TARA DEAL on 09-02-2022 MCV (RBC) [Entitic vol] 90.7 fL 81-99 [facility] Erythrocyte sedimentation ra teOrdered By: TARA DEAL on 09-02-2022 ESR (Bld) [Velocity] 42 mm/h 0-30 [facility] Hematocrit Auto (Bld) [Volum e fraction]Ordered By: TARA DEAL on 09-02-2022 Hematocrit (Bld) [Volume fraction] 40.8 % 37-47 [facility] Laboratory - Chemistry and C hemistry - challengeOrdered By: TARA DEAL on 09-02-2022 ALT [Catalytic activity/Vol] 37 U/L 13-56 [facility] Laboratory - Hematology and Cell countsOrdered By: TARA DEAL on 09-02-2022 Erythrocyte distribution width (RBC) [Entitic vol] 53.5 fL 35.1-43.9 [facility] Erythrocyte distribution width (RBC) [Ratio] 16.1 % 11.6-14.6 [facility] MCH (RBC) [Entitic mass] 28.0 pg 27.0-32.0 [facility] MCHC Auto (RBC) [Mass/Vol]Or dered By: TARA DEAL on 09-02-2022 MCHC (RBC) [Mass/Vol] 30.9 g/dL 32-36 [facility] No Panel InformationOrdered By: TARA DEAL on 09-02-2022 Estimated GFR (MDRD) Amer 104 mL/min >60 [facility] Comment on above: GFR Calc Estimated GFR (MDRD) Non-Af Amer 86 mL/min >60 [facility] Comment on above: Non- GFR Calc Platelets bldOrdered By: MIRNA DEAL on 09-02-2022 Platelets (Bld) [#/Vol] 55 10*3/uL 150-450 [facility] Serum or plasma C reactive p rotein measurement (mass/volume)Ordered By: TARA DEAL on 09-02-2022 CRP [Mass/Vol] 25.60 mg/L 0.0-3.0 [facility] Comment on above: C-Reactive Protein ( CRP) provides useful information for thediagnosis, therapy and monitoring of inflammatory processesand associated diseases. For the evaluation of Relative Riskfor Cardiovascular Disease, a High Sensitivity CRP (HSCRP)should be ordered. Serum or plasma creatinine m easurement (mass/volume)Ordered By: TARA DEAL on 09-02-2022 Creatinine [Mass/Vol] 0.72 mg/dL 0.55-1.02 [facility] Comment on above: The validity of the calculated GFR & GFRAA in patients over 70 years has not been determined. Clinical correlation is essential. Serum or plasma urea nitroge n measurement (mass/volume)Ordered By: TARA DEAL on 09-02-2022 Urea nitrogen [Mass/Vol] 25 mg/dL 7-18 [facility] Thin prep Papanicolaou smear with manual screeningOrdered By: TARA DEAL on 09-02-2022 Thin prep Papanicolaou smear with manual screening 32 U/L 15-37 [facility] Basophil percentageOrdered B y: Dr. Govea on 07-15-2022 Bilirubin [Mass/Vol] 0.50 mg/dL 0.20-1.00 [facility] Comment on above: For patients on eltr ombopag therapy, use of Dimension [place] TBIL is not recommended. Protein [Mass/Vol] 8.2 g/dL 6.4-8.2 [facility] Direct bilirubinOrdered By: Dr. Govea on 07-15-2022 Bilirubin.direct [Mass/Vol] 0.27 mg/dL 0.00-0.30 [facility] Laboratory - Chemistry and C hemistry - challengeOrdered By: Dr. Govea on 07-15-2022 ALP [Catalytic activity/Vol] 217 U/L 45-117 [facility] ALT [Catalytic activity/Vol] 69 U/L [facility] Globulin (S) [Mass/Vol] 5.3 g/dL 2.2-4.2 [facility] Serum or plasma albumin diana urement (mass/volume)Ordered By: Dr. Govea on 07-15-2022 Albumin [Mass/Vol] 2.9 g/dL 3.2-5.0 [facility] Thin prep Papanicolaou smear with manual screeningOrdered By: Dr. Govea on 07-15-2022 Thin prep Papanicolaou smear with manual screening 51 U/L 15 [facility] LABORATORYOrdered By: Milagros Garcia on 04-27-2022 Glucose [Mass/Vol] 78 mg/dL Invalid Interpretation Code 82 - 115 mg/dL [facility] Work Phone: Basophil percentageOrdered B y: Dr. Gvoea on 04-09-2022 Bilirubin [Mass/Vol] 0.60 mg/dL 0.20-1.00 [facility] Comment on above: For patients on eltr ombopag therapy, use of Dimension [place] TBIL is not recommended. Protein [Mass/Vol] 7.6 g/dL 6.4-8.2 [facility] Direct bilirubinOrdered By: Dr. Govea on 04-09-2022 Bilirubin.direct [Mass/Vol] 0.24 mg/dL 0.00-0.30 [facility] INR in Blood by Coagulation assayOrdered By: Dr. Govea on 04-09-2022 INR Coag (Bld) [Relative time] 1.3 {INR} [facility] Laboratory - Chemistry and C hemistry - challengeOrdered By: Dr. Govea on 04-09-2022 ALP [Catalytic activity/Vol] 175 U/L [facility] ALT [Catalytic activity/Vol] 58 U/L [facility] Globulin (S) [Mass/Vol] 4.8 g/dL 2.2-4.2 [facility] Laboratory - CoagulationOrde red By: Dr. Govea on 04-09-2022 PT Coag (PPP) [Time] 15.7 s 11.7-14.9 [facility] Serum or plasma albumin diana urement (mass/volume)Ordered By: Dr. Govea on 04-09-2022 Albumin [Mass/Vol] 2.8 g/dL 3.2-5.0 [facility] Serum or plasma [id number] protein tumor marker measurement (units/volume)Ordered By: Dr. Govea on 04-09-2022 AFP.tumor marker Qn 2.3 ng/mL 0.0-9.2 [facility] Comment on above: [employer] El ectrochemiluminescence Immunoassay(ECLIA)Values obtained with different assay methods or kits cannotbe used interchangeably. Results cannot be interpreted asabsolute evidence of the presence or absence of malignantdisease.This test is not interpretable in females.Performed at: [facility] [employer] [id number] Director: Chandler Brock PhD, Phone: [phone] Thin prep Papanicolaou smear with manual screeningOrdered By: Dr. Govea on 04-09-2022 Thin prep Papanicolaou smear with manual screening 41 U/L 15-37 [facility] Established Visit (Gastroent erology)on 03-30-2022 Established Visit (Gastroenterology) Diagnoses/Problems Assessed Cirrhosis (571.5) (K74.60) Varices, esophageal (456.1) (I85.00) Orders Autoimmune hepatitis Complete Blood Count + Differential; Status:Canceled; Perform:Lab Services - Lab To Draw (Blood Test); Order Comments:PLEASE FAX RESULTS TO ATTN: VERONICA [phone]; Due:[id number]; Last Updated By:Lyla Velazquez; 03/30/2022 10:44:12 AM;Ordered; For:Autoimmune hepatitis; Ordered By:Shin Govea; Complete Blood Count + Differential; Status:Canceled; Perform:Lab Services - Lab To Draw (Blood Test); Order Comments:PLEASE FAX RESULTS TO ATTN: VERONICA [phone]; Due:18May2022; Last Updated By:Lyla Velazquez; 03/30/2022 10:44:12 AM;Ordered; For:Autoimmune hepatitis; Ordered By:Shin Govea; Complete Blood Count + Differential; Status:Canceled; Perform:Lab Services - Lab To Draw (Blood Test); Order Comments:PLEASE FAX RESULTS TO ATTN: GITA [phone]; Due:01Jun2022; Last Updated By:Lyla Velazquez; 03/30/2022 10:44:12 AM;Ordered; For:Autoimmune hepatitis; Ordered By:Shin Govea; Complete Blood Count + Differential; Status:Canceled; Perform:Lab Services - Lab To Draw (Blood Test); Order Comments:PLEASE FAX RESULTS TO ATTN: [facility] [phone]; Due:15Jun2022; Last Updated By:Lyla Velazquez; 03/30/2022 10:44:12 AM;Ordered; For:Autoimmune hepatitis; Ordered By:Shin Govea; Hepatic Function Panel; Status:Canceled; Perform:Lab Services - Lab To Draw (Blood Test); Order Comments:PLEASE FAX RESULTS TO ATTN: [facility] [phone]; Due:18May2022; Last Updated By:Lyla Velazquez; 03/30/2022 10:44:12 AM;Ordered; For:Autoimmune hepatitis; Ordered By:Shin Govea; Hepatic Function Panel; Status:Canceled; Perform:Lab Services - Lab To Draw (Blood Test); Order Comments:PLEASE FAX RESULTS TO ATTN: [facility] [phone]; Due:01Jun2022; Last Updated By:Lyla Velazquez; 03/30/2022 10:44:12 AM;Ordered; For:Autoimmune hepatitis; Ordered By:Shin Govea; Hepatic Function Panel; Status:Canceled; Perform:Lab Services - Lab To Draw (Blood Test); Order Comments:PLEASE FAX RESULTS TO ATTN: [facility] [phone]; Due:15Jun2022; Last Updated By:Lyla Velazquez; 03/30/2022 10:44:12 AM;Ordered; For:Autoimmune hepatitis; Ordered By:Shin Govae; Autoimmune hepatitis, Cirrhosis Alpha Fetoprotein, Serum; Status:Active; Requested for:30Mar2022; Perform:Lab Services - Lab To Draw (Blood Test); Due:28Jun2022;Ordered; For:Autoimmune hepatitis, Cirrhosis; Ordered By:Shin Govea; Hepatology Follow-Up Outpatient Follow-up in 6 MONTHS Status: Hold For - ,Exact Date Requested for: September2022 Ordered;For: Autoimmune hepatitis, Cirrhosis; Ordered By: Shin Govea Performed: Due: 28Jun2022 Alpha Fetoprotein, Serum; Status:Hold For - Exact Date; Requested for:September2022; Perform:Lab Services - Lab To Draw (Blood Test); Due:28Jun2022;Ordered; For:Autoimmune hepatitis, Cirrhosis; Ordered By:Shin Govea; Bilirubin, Serum Direct - Conjugated; Status:Hold For Exact ; Requested for:September2022; Perform:Lab Services - Lab To Draw (Blood Test); Due:28Jun2022;Ordered; For:Autoimmune hepatitis, Cirrhosis; Ordered By:Shin Govea; Comprehensive Metabolic Panel; Status:Hold For Exact Date; Requested for:September2022; Perform:Lab Services - Lab To Draw (Blood Test); Due:28Jun2022;Ordered; For:Autoimmune hepatitis, Cirrhosis; Ordered By:Shin Govea; Hepatic Function Panel; Status:Active; Requested for:30Mar2022; Perform:Lab Services - Lab To Draw (Blood Test); Due:28Jun2022;Ordered; For:Autoimmune hepatitis, Cirrhosis; Ordered By:Shin Govea; PT/INR; Status:Active; Requested for:30Mar2022; Perform:Lab Services - Lab To Draw (Blood Test); Due:28Jun2022;Ordered; For:Autoimmune hepatitis, Cirrhosis; Ordered By:Shin Govea; PT/INR; Status:Hold For Exact Date; Requested for:September2022; Perform:Lab Services - Lab To Draw (Blood Test); Due:28Jun2022;Ordered; For:Autoimmune hepatitis, Cirrhosis; Ordered By:Shin Govea; Ultrasound Liver Radiology; Status:Hold For - ,Exact Date; Requested for:September2022; Perform: Radiology Services Imaging; Due:28Jun2022;Ordered; For:Autoimmune hepatitis, Cirrhosis; Ordered By:Shin Govea; Radiologist to Determine Optimal Study : Y What are the patient's signs and symptoms? : HCC SURVEILLANCE Patient Discussion/Summary HAVE BLOOD WORK DONE HAVE REPEAT ENDOSCOPY WITH DR MITTAL Adhere to a low salt diet less than 2 grams of sodium per day Watch for signs of liver disease worsening including swelling in the abdomen and legs, confusion or excessive sleepiness, vomiting or seeing blood in the stools or having black tarry stools. Have blood work and ultrasound every 6 months to check for liver cancer return to the office in 6 months Provider Impressions we asked her not to restart AZA for now pending labs. In the setting of decomp cirrhosis, AZA may not be the best option anyway. she will retu (more content not included)... Normal [facility] Absolute lymphocyte countOrd ered By: Dr. Govea on 01-29-2022 Lymphocytes Auto (Unsp spec) [#/Vol] 0.17 10*3/uL 0.83-4.51 [facility] Basophil percentageOrdered B y: Dr. Govea on 01-29-2022 Basophils/100 WBC (Bld) 0.3 % 0-1 [facility] Bilirubin [Mass/Vol] 0.50 mg/dL 0.20-1.00 [facility] Comment on above: For patients on eltr ombopag therapy, use of Dimension [place] TBIL is not recommended. Eosinophils/100 WBC (Bld) 0.0 % 0-5 [facility] Neutrophils (Bld) [#/Vol] 3.1 10*3/uL 2.0-7.7 [facility] Neutrophils/100 WBC (Bld) 87.3 % 47-70 [facility] Protein [Mass/Vol] 7.7 g/dL 6.4-8.2 [facility] WBC (Bld) [#/Vol] 3.6 10*3/uL 4.4-11.0 [facility] Blood erythrocytes count (nu mber/volume)Ordered By: Dr. Govea on 01-29-2022 RBC (Bld) [#/Vol] 4.44 10*6/uL 4.2-5.4 [facility] Blood hemoglobin measurement (mass/volume)Ordered By: Dr. Govea on 01-29-2022 Hemoglobin (Bld) [Mass/Vol] 12.4 g/dL 12.0-15.0 [facility] Blood lymphocytes/100 leukoc ytesOrdered By: Dr. Govea on 01-29-2022 Lymphocytes/100 WBC (Bld) 4.8 % 19-41 [facility] Blood monocytes/100 leukocyt esOrdered By: Dr. Govea on 01-29-2022 Monocytes/100 WBC (Bld) 6.5 % 0-10 [facility] Blood platelet adequacy dete ction by light microscopyOrdered By: Dr. Govea on 01-29-2022 Platelets LM Ql (Bld) MKD DEC ADEQ [facility] Blood platelet mean volumeOr dered By: Dr. Govea on 01-29-2022 Platelet mean volume (Bld) [Entitic vol] 12.1 fL 6.2-12.0 [facility] Determination of erythrocyte mean corpuscular volume (MCV)Ordered By: Dr. Govea on 01-29-2022 MCV (RBC) [Entitic vol] 91.0 fL 81-99 [facility] Direct bilirubinOrdered By: Dr. Govea on 01-29-2022 Bilirubin.direct [Mass/Vol] 0.27 mg/dL 0.00-0.30 [facility] Hematocrit Auto (Bld) [Volum e fraction]Ordered By: Dr. Govea on 01-29-2022 Hematocrit (Bld) [Volume fraction] 40.4 % 37-47 [facility] Laboratory - Chemistry and C hemistry - challengeOrdered By: Dr. Govea on 01-29-2022 ALP [Catalytic activity/Vol] 206 U/L 45-117 [facility] ALT [Catalytic activity/Vol] 65 U/L 13-56 [facility] Globulin (S) [Mass/Vol] 5.0 g/dL 2.2-4.2 [facility] Laboratory - Hematology and Cell countsOrdered By: Dr. Govea on 01-29-2022 Erythrocyte distribution width (RBC) [Entitic vol] 53.8 fL 35.1-43.9 [facility] Erythrocyte distribution width (RBC) [Ratio] 16.1 % 11.6-14.6 [facility] Immature granulocytes/100 WBC (Bld) 1.100 % 0.0-0.9 [facility] Comment on above: IG% - Immature Granu locytes (promyelocytes, myelocytes and metamyelocytes) > 1% indicates that a LEFT SHIFT is Present. MCH (RBC) [Entitic mass] 27.9 pg 27.0-32.0 [facility] Nucleated RBC/100 WBC (Bld) [Ratio] 0 % 0-5 [facility] MCHC Auto (RBC) [Mass/Vol]Or dered By: Dr. Govea on 01-29-2022 MCHC (RBC) [Mass/Vol] 30.7 g/dL 32-36 [facility] Platelets bldOrdered By: Dr. Govea on 01-29-2022 Platelets (Bld) [#/Vol] 51 10*3/uL 150-450 [facility] Review by pathologistOrdered By: Dr. Govea on 01-29-2022 Pathologist review Bruce (Unsp spec) [Interp] Reviewed [facility] Comment on above: Previous reported re sult: Suki murdock Edited by: ROBERTA on 01/30/22:1422LeukopeniaMarked Thrombocytopenia.Clinical correlation necessary.Saud Acosta M.D. 01/30/22 AMENDED REPORT 01/30/22 1422 PATH REV previously reported as: July mathieu Serum or plasma albumin diana urement (mass/volume)Ordered By: Dr. Govea on 01-29-2022 Albumin [Mass/Vol] 2.7 g/dL 3.2-5.0 [facility] Thin prep Papanicolaou smear with manual screeningOrdered By: Dr. Govea on 01-29-2022 Thin prep Papanicolaou smear with manual screening 44 U/L 15-37 [facility] Absolute lymphocyte counton 08-25-2021 Lymphocytes Auto (Unsp spec) [#/Vol] 0.18 10*3/uL 0.83-4.51 [facility] Work Phone: Basophil percentageon 2021 Basophils/100 WBC (Bld) 0.5 % 0-1 [facility] Work Phone: Eosinophils/100 WBC (Bld) 0.0 % 0-5 [facility] Work Phone: Neutrophils (Bld) [#/Vol] 3.8 10*3/uL 2.0-7.7 [facility] Work Phone: Neutrophils/100 WBC (Bld) 87.4 % 47-70 [facility] Work Phone: WBC (Bld) [#/Vol] 4.3 10*3/uL 4.4-11.0 [facility] Work Phone: Bilirubin [Mass/Vol] 0.70 mg/dL 0.20-1.00 [facility] Work Phone: Comment on above: For patients on eltr ombopag therapy, use of Dimension [place] TBIL is not recommended. Chloride [Moles/Vol] 105 mmol/L 98-107 [facility] Work Phone: Glucose [Mass/Vol] 168 mg/dL 74-106 [facility] Work Phone: Comment on above: Fasting Glucose resu lt greater than or equal to 126 mg/dL suggests DIABETES MELLITUS per A.D.A. criteria. Potassium [Moles/Vol] 4.5 mmol/L 3.5-5.1 [facility] Work Phone: Protein [Mass/Vol] 8.0 g/dL 6.4-8.2 [facility] Work Phone: Sodium [Moles/Vol] 136 mmol/L 136-145 [facility] Work Phone: Blood erythrocytes count (nu mber/volume)on 08-25-2021 RBC (Bld) [#/Vol] 4.63 10*6/uL 4.2-5.4 [facility] Work Phone: Blood hemoglobin measurement (mass/volume)on 08-25-2021 Hemoglobin (Bld) [Mass/Vol] 12.8 g/dL 12.0-15.0 [facility] Work Phone: Blood lymphocytes/100 leukoc yteson 08-25-2021 Lymphocytes/100 WBC (Bld) 4.2 % 19-41 [facility] Work Phone: Blood manual differential co mment interpretation (narrative result)on 08-25-2021 Manual differential comment Bruce (Bld) [Interp] See comment [facility] Work Phone: Comment on above: LYMPHOPENIA NOTED Blood monocytes/100 leukocyt eson 08-25-2021 Monocytes/100 WBC (Bld) 7.0 % 0-10 [facility] Work Phone: Blood platelet mean volumeon 08-25-2021 Platelet mean volume (Bld) [Entitic vol] 12.7 fL 6.2-12.0 [facility] Work Phone: Determination of erythrocyte mean corpuscular volume (MCV)on 08-25-2021 MCV (RBC) [Entitic vol] 88.6 fL 81-99 [facility] Work Phone: Direct bilirubinon 2 Bilirubin.direct [Mass/Vol] 0.24 mg/dL 0.00-0.30 [facility] Work Phone: Hematocrit Auto (Bld) [Volum e fraction]on 08-25-2021 Hematocrit (Bld) [Volume fraction] 41.0 % 37-47 [facility] Work Phone: INR in Blood by Coagulation assayon 08-25-2021 INR Coag (Bld) [Relative time] 1.1 {INR} [facility] Work Phone: Laboratory - Chemistry and C hemistry - challengeon 08-25-2021 ALP [Catalytic activity/Vol] 207 U/L 45-117 [facility] Work Phone: ALT [Catalytic activity/Vol] 43 U/L 13-56 [facility] Work Phone: CO2 [Moles/Vol] 25.0 mmol/L 21.0-32.0 [facility] Work Phone: Globulin (S) [Mass/Vol] 5.0 g/dL 2.2-4.2 [facility] Work Phone: Urea nitrogen/Creatinine [Mass ratio] 34.5 mg/mg 10-20 [facility] Work Phone: Laboratory - Coagulationon 0 08-25-2021 aPTT Coag (Bld) [Time] 26.3 s 24.1-36.2 [facility] Work Phone: PT Coag (PPP) [Time] 14.0 s 11.7-14.[address] [facility] [address] [facility] Work Phone: Laboratory - Hematology and Cell countson 08-25-2021 Erythrocyte distribution width (RBC) [Entitic vol] 48.1 fL 35.1-43.9 [facility] Work Phone: Erythrocyte distribution width (RBC) [Ratio] 14.8 % 11.6-14.6 [facility] Work Phone: Immature granulocytes/100 WBC (Bld) 0.900 % 0.0-0.9 [facility] Work Phone: Comment on above: IG% - Immature Granu locytes (promyelocytes, myelocytes and metamyelocytes) > 1% indicates that a LEFT SHIFT is Present. MCH (RBC) [Entitic mass] 27.6 pg 27.0-32.0 [facility] Work Phone: Nucleated RBC/100 WBC (Bld) [Ratio] 0 % 0-5 [facility] Work Phone: MCHC Auto (RBC) [Mass/Vol]on 08-25-2021 MCHC (RBC) [Mass/Vol] 31.2 g/dL 32-36 [facility] Work Phone: No Panel Informationon 08-25 Estimated GFR (MDRD) Amer 87 mL/min >60 [facility] Work Phone: Comment on above: GFR Calc Estimated GFR (MDRD) Non-Af Amer 72 mL/min >60 [facility] Work Phone: Comment on above: Non- GFR Calc Platelets bldon 08-25-2021 Platelets (Bld) [#/Vol] 68 10*3/uL 150-450 [facility] Work Phone: Review by pathologiston 08-13 Pathologist review Bruce (Unsp spec) [Interp] Reviewed [facility] Work Phone: Comment on above: Previous reported re sult: Suki murdock Edited by: RGOYIMI on 08/26/21:1309Moderate Thrombocytopenia.Saud Acosta M.D. 08/26/21 AMENDED REPORT 08/26/21 1309 PATH REV previously reported as: Suki murdock Serum or plasma albumin diana urement (mass/volume)on 08-25-2021 Albumin [Mass/Vol] 3.0 g/dL 3.2-5.0 [facility] Work Phone: Serum or plasma albumin/glob ulin mass ratioon 08-25-2021 Albumin/Globulin [Mass ratio] 0.6 {ratio} 0.9-2.4 [facility] Work Phone: Serum or plasma [id number] protein tumor marker measurement (units/volume)on 08-25-2021 AFP.tumor marker Qn 1.7 ng/mL 0.0-9.2 [facility] Work Phone: Comment on above: [employer] El ectrochemiluminescence Immunoassay(ECLIA)Values obtained with different assay methods or kits cannotbe used interchangeably. Results cannot be interpreted asabsolute evidence of the presence or absence of malignantdisease.This test is not interpretable in females.Performed at: [address] [id number] Director: Chandler Brock PhD, Phone: [phone] Serum or plasma calcium diana urement (mass/volume)on 08-25-2021 Calcium [Mass/Vol] 9.4 mg/dL 8.5-10.1 [facility] Work Phone: Serum or plasma creatinine m easurement (mass/volume)on 08-25-2021 Creatinine [Mass/Vol] 0.84 mg/dL 0.55-1.02 [facility] Work Phone: Comment on above: The validity of the calculated GFR & GFRAA in patients over 70 years has not been determined. Clinical correlation is essential. Serum or plasma urea nitroge n measurement (mass/volume)on 08-25-2021 Urea nitrogen [Mass/Vol] 29 mg/dL 7-18 [facility] Work Phone: Thin prep Papanicolaou smear with manual screeningon 08-25-2021 Thin prep Papanicolaou smear with manual screening 33 U/L 15-37 [facility] Work Phone: Thin prep Papanicolaou smear with manual screening 6 5-15 [facility] Work Phone: Established Visit (Gastroent erology)on 08-04-2021 Established Visit (Gastroenterology) Diagnoses/Problems Assessed Autoimmune hepatitis (571.42) (K75.4) Cirrhosis (571.5) (K74.60) Orders Autoimmune hepatitis Renew: predniSONE 5 MG Oral Tablet; TAKE 1 TABLET DAILY Rx By: Shin Govea; Dispense: 30 Days ; #:30 Tablet; Refill: 11;For: Autoimmune hepatitis; MIGUEL = N; Record Complete Blood Count + Differential; Status:Active; Requested for:[id number]; Perform:Lab Services - Lab To Draw (Blood Test); Order Comments:PLEASE FAX RESULTS TO ATTN: VERONICA [phone]; Due:[id number]; Last Updated By:Lyla Velazquez; 08/05/2021 10:04:30 AM;Ordered; For:Autoimmune hepatitis; Ordered By:Shin Govea; Complete Blood Count + Differential; Status:In Progress - Order Generated; Requested for:Recurring Schedule: 08/05/2021; 08/19/2021; 09/02/2021; 09/16/2021; 09/30/2021; 10/14/2021; 10/28/2021; ....; Perform:Lab Services - Lab To Draw (Blood Test); Order Comments:PLEASE FAX RESULTS TO ATTN: [facility] [phone]; Due:[id number];Ordered; For:Autoimmune hepatitis; Ordered By:Shin Govea; Hepatic Function Panel; Status:Active; Requested for:05Aug2021; Perform:Lab Services - Lab To Draw (Blood Test); Order Comments:PLEASE FAX RESULTS TO ATTN: [facility] [phone]; Due:03Nov2021; Last Updated By:Lyla Velazquez; 08/05/2021 10:04:30 AM;Ordered; For:Autoimmune hepatitis; Ordered By:Shin Govea; Hepatic Function Panel; Status:In Progress - Order Generated; Requested for:Recurring Schedule: 08/05/2021; 08/19/2021; 09/02/2021; 09/16/2021; 09/30/2021; 10/14/2021; 10/28/2021; ....; Perform:Lab Services - Lab To Draw (Blood Test); Order Comments:PLEASE FAX RESULTS TO ATTN: [facility] [phone]; Due:03Nov2021;Ordered; For:Autoimmune hepatitis; Ordered By:Shin Govea; Autoimmune hepatitis, Cirrhosis Hepatology Follow-Up Outpatient Follow-up IN 3 MONTHS Status: Hold For - Scheduling,Exact Date Requested for: Ordered;For: Autoimmune hepatitis, Cirrhosis; Ordered By: Shin Govea Performed: Due: 03Nov2021 Alpha Fetoprotein, Serum; Status:Hold For - Exact Date; Requested for:; Perform:Lab Services - Lab To Draw (Blood Test); Order Comments:PLEASE FAX RESULTS TO ATTN: [facility] [phone]; Due:23Mar2021; Last Updated By:Lyla Velazquez; 08/05/2021 10:04:30 AM;Ordered; For:Autoimmune hepatitis, Cirrhosis; Ordered By:Shin Govea; Complete Blood Count + Differential; Status:Hold For - Exact Date; Requested for:; Perform:Lab Services - Lab To Draw (Blood Test); Order Comments:[facility] [phone]; Due:23Mar2021; Last Updated By:Lyla Velazquez; 08/05/2021 10:04:30 AM;Ordered; For:Autoimmune hepatitis, Cirrhosis; Ordered By:Shin Govea; Hepatic Function Panel; Status:Hold For - Exact Date; Requested for:; Perform:Lab Services - Lab To Draw (Blood Test); Order Comments:PLEASE [facility]X RESULTS TO [facility] [phone]; Due:23Mar2021; Last Updated By:Lyla Velazquez; 08/05/2021 10:04:30 AM;Ordered; For:Autoimmune hepatitis, Cirrhosis; Ordered By:Shin Govea; PT/INR; Status:Hold For Exact ; Requested for:; Perform:Lab Services - Lab To Draw (Blood Test); Order Comments:PLEASE FAX RESULTS TO ATTN[facility] [phone]; Due:23Mar2021; Last Updated By:Lyla Velazquez; 08/05/2021 10:04:30 AM;Ordered; For:Autoimmune hepatitis, Cirrhosis; Ordered By:Shin Govea; Renal Function Panel; Status:Hold For - Exact ; Requested for:; Perform:Lab Services - Lab To Draw (Blood Test); Order Comments:PLEASE FAX RESULTS TO ATTN: [facility] [phone]; Due:23Mar2021; Last Updated By:Lyla Velazquez; 08/05/2021 10:04:30 AM;Ordered; For:Autoimmune hepatitis, Cirrhosis; Ordered By:Shin Govea; Ultrasound Liver Radiology; Status:Hold For ; Requested for:; Perform:[facility]; Order Comments:PLEASE FAX RESULTS TO ATTN: [facility] [phone]; Due:23Mar2021; Last Updated By:Lyla Velazquez; 08/05/2021 10:04:30 AM;Ordered; For:Autoimmune hepatitis, Cirrhosis; Ordered By:Shin Govea; Radiologist to Determine Optimal Study : Y What are the patient's signs and symptoms? : HCC surveillance Cirrhosis Hepatology Follow-Up Outpatient 6 month follow up Status: Canceled Ordered;For: Cirrhosis; Ordered By: Shin Govea Performed: Due: 23Mar2021; Last Updated By: Lyla Velazquez; 08/05/2021 10:04:30 AM Patient Discussion/Summary Adhere to a low salt diet less than 2 grams of sodium per day Watch for signs of liver disease worsening including swelling in the abdomen and legs, confusion or excessive sleepiness, vomiting or seeing blood in the stools or having black tarry stools. Have blood work and ultrasound every 6 months to check for liver cancer have endoscopy every year to check for large veins in the esophagus and stomach which can cause serious bleeding return to the office in 6 months Provider Impressions We will order MELD (more content not included)... Normal [facility] COMPL C3on 07-04-2021 COMPL C3 101 mg/dL Normal 82-167 [facility] Comment on above: Result Comment: Perf ormed At: [facility] [id number] Vinod Arteaga PhD [id number] Performed By: #### L 750.47386 #### [facility] [address] [id number] COMPL C4on 07-04-2021 COMPL C4 15 mg/dL Normal 12-38 [facility] Comment on above: Performed By: #### L 750.99692, L700.31960 #### [facility] [place] [address] [place] [id number] DNA DLB STR AABon 07-04-2021 DNA DLB STR AAB 3 IU/mL Normal 0-9 [facility] Comment on above: Result Comment: Nega tive <5 Equivocal 5 - 9 Positive >9 Performed At: [facility] [id number] Vinod Arteaga PhD [id number] Performed By: #### L 750.60015, L700.87230 #### [facility] [place] [id number] [place] [address] # [phone] Basophil percentageon 2021 Bilirubin [Mass/Vol] 0.60 mg/dL 0.20-1.00 [facility] Work Phone: Comment on above: For patients on eltr ombopag therapy, use of Dimension [place] TBIL is not recommended. Chloride [Moles/Vol] 103 mmol/L 98-107 [facility] Work Phone: Glucose [Mass/Vol] 236 mg/dL 74-106 [facility] Work Phone: Comment on above: Glucose result great er than or equal to 200 mg/dLsuggests DIABETES MELLITUS per A.D.A. criteria. Potassium [Moles/Vol] 4.5 mmol/L 3.5-5.1 [facility] Work Phone: Protein [Mass/Vol] 8.4 g/dL 6.4-8.2 [facility] Work Phone: Sodium [Moles/Vol] 137 mmol/L 136-145 [facility] Work Phone: WBC (Bld) [#/Vol] 5.2 10*3/uL 4.4-11.0 [facility] Work Phone: Blood erythrocytes count (nu mber/volume)on 06-06-2021 RBC (Bld) [#/Vol] 4.78 10*6/uL 4.2-5.4 [facility] Work Phone: Blood hemoglobin measurement (mass/volume)on 06-06-2021 Hemoglobin (Bld) [Mass/Vol] 13.6 g/dL 12.0-15.0 [facility] Work Phone: Blood manual differential co mment interpretation (narrative result)on 06-06-2021 Manual differential comment Bruce (Bld) [Interp] SCANNED [facility] Work Phone: Comment on above: THROMBOCYTOPENIA NOT ED Blood platelet mean volumeon 06-06-2021 Platelet mean volume (Bld) [Entitic vol] 12.7 fL 6.2-12.0 [facility] Work Phone: Determination of erythrocyte mean corpuscular volume (MCV)on 06-06-2021 MCV (RBC) [Entitic vol] 88.7 fL 81-99 [facility] Work Phone: Hematocrit Auto (Bld) [Volum e fraction]on 06-06-2021 Hematocrit (Bld) [Volume fraction] 42.4 % 37-47 [facility] Work Phone: INR in Blood by Coagulation assayon 06-06-2021 INR Coag (Bld) [Relative time] 1.1 {INR} [facility] Work Phone: Laboratory - Chemistry and C hemistry - challengeon 06-06-2021 ALP [Catalytic activity/Vol] 334 U/L 45-117 [facility] Work Phone: ALT [Catalytic activity/Vol] 51 U/L 13-56 [facility] Work Phone: CO2 [Moles/Vol] 28.0 mmol/L 21.0-32.0 [facility] Work Phone: Globulin (S) [Mass/Vol] 5.1 g/dL 2.2-4.2 [facility] Work Phone: Urea nitrogen/Creatinine [Mass ratio] 39.5 mg/mg 10-20 [facility] Work Phone: Laboratory - Coagulationon 0 06-06-2021 aPTT Coag (Bld) [Time] 24.9 s 24.1-36.2 [facility] Work Phone: PT Coag (PPP) [Time] 13.9 s 11.7-14.[address] [facility] Work Phone: Laboratory - Hematology and Cell countson 06-06-2021 Erythrocyte distribution width (RBC) [Entitic vol] 49.9 fL 35.1-43.9 [facility] Work Phone: Erythrocyte distribution width (RBC) [Ratio] 15.2 % 11.6-14.6 [facility] Work Phone: MCH (RBC) [Entitic mass] 28.5 pg 27.0-32.0 [facility] Work Phone: MCHC Auto (RBC) [Mass/Vol]on 06-06-2021 MCHC (RBC) [Mass/Vol] 32.1 g/dL 32-36 [facility] Work Phone: No Panel Informationon 06-06 Estimated GFR (MDRD) Amer 102 mL/min >60 [facility] Work Phone: Comment on above: GFR Calc Estimated GFR (MDRD) Non-Af Amer 85 mL/min >60 [facility] Work Phone: Comment on above: Non- GFR Calc Platelets bldon 06-06-2021 Platelets (Bld) [#/Vol] 74 10*3/uL 150-450 [facility] Work Phone: Serum or plasma albumin diana urement (mass/volume)on 06-06-2021 Albumin [Mass/Vol] 3.3 g/dL 3.2-5.0 [facility] Work Phone: Serum or plasma albumin/glob ulin mass ratioon 06-06-2021 Albumin/Globulin [Mass ratio] 0.6 {ratio} 0.9-2.4 [facility] Work Phone: Serum or plasma [id number]-[id number] protein tumor marker measurement (units/volume)on 06-06-2021 AFP.tumor marker Qn 1.8 ng/mL 0.0-9.2 [facility] Work Phone: Comment on above: [employer] El ectrochemiluminescence Immunoassay(ECLIA) Please note reference intervalchangeValues obtained with different assay methods or kits cannotbe used interchangeably. Results cannot be interpreted asabsolute evidence of the presence or absence of malignantdisease.This test is not interpretable in females.Performed at: [place] [id number] Director: Chandler Brock PhD, Phone: [phone] Serum or plasma calcium diana urement (mass/volume)on 06-06-2021 Calcium [Mass/Vol] 8.7 mg/dL 8.5-10.1 [facility] Work Phone: Serum or plasma creatinine m easurement (mass/volume)on 06-06-2021 Creatinine [Mass/Vol] 0.73 mg/dL 0.55-1.02 [facility] Work Phone: Comment on above: The validity of the calculated GFR & GFRAA in patients over 70 years has not been determined. Clinical correlation is essential. Serum or plasma urea nitroge n measurement (mass/volume)on 06-06-2021 Urea nitrogen [Mass/Vol] 29 mg/dL 7-18 [facility] Work Phone: Thin prep Papanicolaou smear with manual screeningon 06-06-2021 Thin prep Papanicolaou smear with manual screening 29 U/L 15-37 [facility] Work Phone: Thin prep Papanicolaou smear with manual screening 6 5-15 [facility] Work Phone: Absolute lymphocyte counton 03-12-2021 Lymphocytes Auto (Unsp spec) [#/Vol] 0.36 10*3/uL 0.83-4.51 [facility] Work Phone: Basophil percentageon 2020 Basophil percentage 0-5 SEEN /hpf [facility] Work Phone: Eosinophils/100 WBC (Bld) 0.0 % 0-5 [facility] Work Phone: [phone] Neutrophils (Bld) [#/Vol] 5.5 10*3/uL 2.0-7.7 [facility] Work Phone: WBC (Bld) [#/Vol] 6.2 10*3/uL 4.4-11.0 [facility] Work Phone: Bilirubin Test strip Ql (U)o n 03-12-2021 Bilirubin Ql (U) Negative Negative [facility] Work Phone: Blood erythrocytes count (nu mber/volume)on 03-12-2021 RBC (Bld) [#/Vol] 4.90 10*6/uL 4.2-5.4 [facility] Work Phone: Blood hemoglobin measurement (mass/volume)on 03-12-2021 Hemoglobin (Bld) [Mass/Vol] 13.7 g/dL 12.0-15.0 [facility] Work Phone: Blood lymphocytes/100 leukoc yteson 03-12-2021 Lymphocytes/100 WBC (Bld) 5.8 % 19-41 [facility] Work Phone: Blood manual differential co mment interpretation (narrative result)on 03-12-2021 Manual differential comment Bruce (Bld) [Interp] SCANNED [facility] Work Phone: Blood monocytes/100 leukocyt eson 03-12-2021 Monocytes/100 WBC (Bld) 3.4 % 0-10 [facility] Work Phone: Blood platelet mean volumeon 03-12-2021 Platelet mean volume (Bld) [Entitic vol] 12.1 fL 6.2-12.0 [facility] Work Phone: Determination of erythrocyte mean corpuscular volume (MCV)on 03-12-2021 MCV (RBC) [Entitic vol] 88.2 fL 81-99 [facility] Work Phone: Erythrocyte sedimentation ra tatiana 03-12-2021 ESR (Bld) [Velocity] 70 mm/h 0-30 [facility] Work Phone: Hematocrit Auto (Bld) [Volum e fraction]on 03-12-2021 Hematocrit (Bld) [Volume fraction] 43.2 % 37-47 [facility] Work Phone: Hyaline casts LM.LPF (Urine sed) [#/Area]on 03-12-2021 Hyaline casts (Urine sed) [#/Area] 0 /[LPF] [facility] Work Phone: Ketones Test strip Ql (U)on 03-12-2021 Ketones Ql (U) 5 mg/dl Negative [facility] Work Phone: Laboratory - Chemistry and C hemistry - challengeon 03-12-2021 ALT [Catalytic activity/Vol] 62 U/L 13-56 [facility] Work Phone: Laboratory - Hematology and Cell countson 03-12-2021 Basophils/100 WBC (Unsp spec) 0.3 % 0-1 [facility] Work Phone: Erythrocyte distribution width (RBC) [Entitic vol] 45.8 fL 35.1-43.9 [facility] Work Phone: Erythrocyte distribution width (RBC) [Ratio] 14.3 % 11.6-14.6 [facility] Work Phone: Immature granulocytes/100 WBC (Bld) 0.800 % 0.0-0.9 [facility] Work Phone: Comment on above: IG% - Immature Granu locytes (promyelocytes, myelocytes and metamyelocytes) > 1% indicates that a LEFT SHIFT is Present. MCH (RBC) [Entitic mass] 28.0 pg 27.0-32.0 [facility] Work Phone: Neutrophils/100 WBC (Bld) 89.7 % 47-70 [facility] Work Phone: Nucleated RBC/100 WBC (Bld) [Ratio] 0 % 0-5 [facility] Work Phone: MCHC Auto (RBC) [Mass/Vol]on 03-12-2021 MCHC (RBC) [Mass/Vol] 31.7 g/dL 32-36 [facility] Work Phone: Mucus LM Ql (Urine sed)on Mucus Ql (Urine sed) 0 SEEN /hpf [facility] Work Phone: Nitrite Test strip Ql (U)on 03-12-2021 Nitrite Ql (U) Negative Negative [facility] Work Phone: [phone] No Panel Informationon 03-12 Centrome[facility] B Antibody <0.2 [facility] Work Phone: Comment on above: Performed at: [address] [id number] Director: Chandler Brock PhD, Phone: [phone] Estimated GFR (MDRD) Amer 82 mL/min >60 [facility] Work Phone: Comment on above: GFR Calc Estimated GFR (MDRD) Non-Af Amer 68 mL/min >60 [facility] Work Phone: Comment on above: Non- GFR Calc Miscellaneous Test See comment [facility] Work Phone: Comment on above: TEST RESULT LIMITSAn ti-RNA Polymerase III (RDL)Anti-RNA Polymerase III (RDL) <20 Units <20 Negative: <20 Weak Positive: 20 - 39 Moderate Positive: 40 - 80 Strong Positive: >80 TESTING PERFORMED AT [facility]. ORIGINAL REPORT ON FILE IN LAB CONTAINS ADDITIONAL TEST SITE INFORMATION. Platelets bldon 03-12-2021 Platelets (Bld) [#/Vol] 74 10*3/uL 150-450 [facility] Work Phone: Protein Test strip Ql (U)on 03-12-2021 Protein Ql (U) 15 mg/dl Negative [facility] Work Phone: Serum DNA double strand anti body assay (units/volume)on 03-12-2021 DNA double strand Ab Qn (S) 3 [IU]/mL [facility] Work Phone: Comment on above: Negative <5 Equivoca l 5 - 9 Positive >9 Serum Scl-70 extractable nuc lear antibody assay (units/volume)on 03-12-2021 SCL-70 extractable nuclear Ab Qn (S) <0.2 AI [facility] Work Phone: Serum or plasma C reactive p rotein measurement (mass/volume)on 03-12-2021 CRP [Mass/Vol] 26.50 mg/L 0.0-3.0 [facility] Work Phone: Comment on above: C-Reactive Protein ( CRP) provides useful information for thediagnosis, therapy and monitoring of inflammatory processesand associated diseases. For the evaluation of Relative Riskfor Cardiovascular Disease, a High Sensitivity CRP (HSCRP)should be ordered. Serum or plasma complement C 3 measurement (mass/volume)on 03-12-2021 Complement C3 [Mass/Vol] 104 mg/dL [facility] Work Phone: Comment on above: Performed at: [place] [id number] Director: Chandler Brock PhD, Phone: [phone] Serum or plasma complement C 4 measurement (mass/volume)on 03-12-2021 Complement C4 [Mass/Vol] 16 mg/dL [facility] Work Phone: Serum or plasma creatinine m easurement (mass/volume)on 03-12-2021 Creatinine [Mass/Vol] 0.89 mg/dL 0.55-1.02 [facility] Work Phone: Comment on above: The validity of the calculated GFR & GFRAA in patients over 70 years has not been determined. Clinical correlation is essential. Squamous epithelial cells de tection in urine sediment by light microscopyon 03-12-2021 Epithelial cells.squamous LM Ql (Urine sed) 0-5 SEEN /hpf [facility] Work Phone: Thin prep Papanicolaou smear with manual screeningon 03-12-2021 Thin prep Papanicolaou smear with manual screening 40 U/L 15-37 [facility] Work Phone: Urine blood detectionon 02-13 RBC Ql (U) Negative Negative [facility] Work Phone: RBC Ql (U) 0 SEEN /hpf [facility] Work Phone: Urine clarityon 03-12-2021 Clarity (U) Clear Clear [facility] Work Phone: Urine color determinationon 03-12-2021 Color (U) Yellow Yellow [facility] Work Phone: Urine glucose detectionon Glucose Ql (U) 100 mg/dl Normal [facility] Work Phone: [phone] Urine leukocyte esterase det ection by dipstickon 03-12-2021 Leukocyte esterase Test strip Ql (U) 500 /ul Negative [facility] Work Phone: [phone] Urine pHon 03-12-2021 pH (U) 5.0 [pH] [facility] Work Phone: Urine sediment bacteria coun t by microscopy (number/high power field)on 03-12-2021 Bacteria LM.HPF (Urine sed) [#/Area] 0 /[HPF] None Seen [facility] Work Phone: Urine sediment renal epithel ial cell count by microscopy (number/high power field)on 03-12-2021 Epithelial cells.renal LM.HPF (Urine sed) [#/Area] 0 /[HPF] [facility] Work Phone: Urine specific gravity measu rementon 03-12-2021 Specific gravity (U) [Rel density] 1.025 [facility] Work Phone: Urobilinogen Auto test strip Ql (U)on 03-12-2021 Urobilinogen Ql (U) Normal mg/dl Normal [facility] Work Phone: FERRITINon 01-30-2020 Ferritin [Mass/Vol] 646 ug/L High 8 - 150 [facility] Comment on above: Performed By: #### F ERRI #### [place] [address] HEMOGLOBIN A1Con 01-30-2020 HbA1c (Bld) [Mass fraction] 7.1 % Normal [facility] Comment on above: Result Comment: Diag nosis of Diabetes-Adults Non-Diabetic: < or = 5.6% Increased risk for developing diabetes: 5.7-6.4% Diagnostic of diabetes: > or = 6.5% . Monitoring of Diabetes Age (y) Therapeutic Goal (%) Adults: >18 <7.0 Pediatrics: 13-18 <7.5 7-12 <8.0 0- 6 7.5-8.5 [employer]. Diabetes Care 33(S1), Mar 2009. Performed By: #### H BA1E #### [address] [address] HbA1c (Bld) [Mass fraction] 157 MG/DL Normal [facility] Comment on above: Performed By: #### H BA1E #### [address] [address] IRONon 01-30-2020 Iron [Mass/Vol] 80 ug/dL Normal 35 - 150 [facility] Comment on above: Performed By: #### I MILE #### [address] [address] MAGNESIUMon 01-30-2020 Magnesium [Mass/Vol] 1.58 mg/dL Low 1.60 - 2.40 [facility] Comment on above: Performed By: #### M G #### [address] [address] TSHon 01-30-2020 TSH Qn 2.77 m[IU]/L Normal 0.44 - 3.98 [facility] Comment on above: Result Comment: TSH testing is performed using different testing methodology at [facility] than at other [facility]. Direct result comparisons should only be made within the same method. Performed By: #### T SH2 #### [address] [address] VITAMIN D, 25-HYDROXYon 01-13 VITAMIN D, 25-HYDROXY 49 ng/mL Normal [facility] Comment on above: Result Comment: . DEFICIENCY: < 20 NG/ML INSUFFICIENCY: 20-29 NG/ML SUFFICIENCY: 30-100 NG/ML THIS ASSAY ACCURATELY QUANTIFIES THE SUM OF VITAMIN D3, 25-HYDROXY AND VIT D2,25-HYDROXY. Performed By: #### V TDOH #### [place] [address] [place] [address] XR Chest 2 Viewson 9 XR Chest 2 Views Exam Date/Time: 08/30/2018 14:59 EDT Reason for Exam: pneumonia due to infectious organism Report STUDY: XR Chest 2 Views; 08/30/2018 2:59 pm INDICATION: pneumonia due to infectious organism. COMPARISON: None. ACCESSION NUMBER(S): [id number] ORDERING CLINICIAN: Zeke Chapman FINDINGS: PA and lateral views of the chest were obtained. Dense airspace consolidation is seen in the left mid lung, concerning for pneumonia. No pleural effusion or pneumothorax is identified. The cardiac silhouette is within normal limits for size. Mild discogenic degenerative changes are seen throughout the thoracic spine. IMPRESSION: Left mid lung airspace consolidation, concerning for pneumonia. Clinical correlation and continued follow-up until clearing is recommended. FINAL REPORT Dictated: 08/30/2018 3:36 pm West Dias MD Signed (Electronic Signature): 08/30/2018 3:36 pm Signed by: West Dias MD Technologist: R [facility] Vital Signs Date Time Vital Sign Value Performing Clinician Facility 09-26-2024 18:00-0400 Diastolic blood pressure 66 mm[Hg] Alonzo Covarrubias MD Work Phone: [facility] 09-26-2024 18:00-0400 Heart rate 99 /min Alonzo Covarrubias MD Work Phone: [facility] 09-26-2024 18:00-0400 Respiratory rate 24 /min Alonzo Covarrubias MD Work Phone: [facility] 09-26-2024 18:00-0400 SaO2% (BldA) [Mass fraction] 100 % Alonzo Covarrubias MD Work Phone: [facility] 09-26-2024 18:00-0400 Systolic blood pressure 109 mm[Hg] Alonzo Covarrubias MD Work Phone: [facility] 09-26-2024 17:48-0400 Body temperature 98.6 [degF] Alonzo Covarrubias MD Work Phone: [facility] 09-26-2024 13:41-0400 Body height 147.32 cm Alonzo Covarrubias MD Work Phone: [facility] 09-26-2024 13:41-0400 Body mass index (BMI) [Ratio] 29.1 kg/m2 Alonzo Covarrubias MD Work Phone: [facility] 09-26-2024 13:41-0400 Body weight 63.2 kg Alonzo Covarrubias MD Work Phone: [facility] 08-25-2024 09:54-0400 Body height 147.32 cm Alonzo Covarrubias MD Work Phone: [phone] [address] 08-25-2024 09:54-0400 Body mass index (BMI) [Ratio] 24.8 kg/m2 Alonzo Covarrubias MD Work Phone: [facility] 08-25-2024 09:54-0400 Body weight 53.97 kg Alonzo Covarrubias MD Work Phone: [facility] 08-25-2024 09:54-0400 Diastolic blood pressure 83 mm[Hg] Alonzo Covarrubias MD Work Phone: [facility] 08-25-2024 09:54-0400 Heart rate 82 /min Alonzo Covarrubias MD Work Phone: [facility] 08-25-2024 09:54-0400 SaO2% (BldA) [Mass fraction] 98 % Alonzo Covarrubias MD Work Phone: [facility] 08-25-2024 09:54-0400 Systolic blood pressure 136 mm[Hg] Alonzo Covarrubias MD Work Phone: [facility] 07-10-2024 10:35-0400 Diastolic Blood Pressure Non-Invasive 70 mm[Hg] DR CHANDLER YANCEY MD [facility] 07-10-2024 10:35-0400 Heart rate 87 /min DR CHANDLER YANCEY MD [facility] 07-10-2024 10:35-0400 Respiratory rate 23 /min DR CHANDLER YANCEY MD [facility] 07-10-2024 10:35-0400 Systolic Blood Pressure Non-Invasive 115 mm[Hg] DR CHANDLER YANCEY MD [facility] 07-10-2024 10:23-0400 Diastolic Blood Pressure Non-Invasive 67 mm[Hg] DR CHANDLER YANCEY MD [facility] 07-10-2024 10:23-0400 Heart rate 88 /min DR CHANDLER YANCEY MD [facility] 07-10-2024 10:23-0400 Respiratory rate 17 /min DR CHANDLER YANCEY MD [facility] 07-10-2024 10:23-0400 Systolic Blood Pressure Non-Invasive 124 mm[Hg] DR CHANDLER YANCEY MD [facility] 07-10-2024 10:17-0400 Diastolic Blood Pressure Non-Invasive 69 mm[Hg] DR CHANDLER YANCEY MD [facility] 07-10-2024 10:17-0400 Heart rate 83 /min DR CHANDLER YANCEY MD [facility] 07-10-2024 10:17-0400 Respiratory rate 13 /min DR CHANDLER YANCEY MD [facility] 07-10-2024 10:17-0400 Systolic Blood Pressure Non-Invasive 107 mm[Hg] DR CHANDLER YANCEY MD [facility] 07-10-2024 09:44-0400 Body temperature 97.88 [degF] DR CHANDLER YANCEY MD [facility] 07-10-2024 09:40-0400 Respiratory Rate - Anes 23 br/min DR CHANDLER YANCEY MD [facility] 07-10-2024 09:35-0400 Respiratory Rate - Anes 17 br/min DR CHANDLER YANCEY MD [facility] 07-10-2024 09:30-0400 Respiratory Rate - Anes 3 br/min DR CHANDLER YANCEY MD [facility] 07-10-2024 08:16-0400 Body height 152.[address] CHANDLER YANCEY MD [facility] 07-10-2024 08:06-0400 Body height 147.[address] CHANDLER YANCEY MD [facility] 07-10-2024 08:06-0400 Body temperature 96.98 [degF] DR CHANDLER YANCEY MD [facility] 07-10-2024 08:06-0400 Heart rate 78 /min DR CHANDLER YANCEY MD [facility] 02-21-2024 07:50-0500 Body height 147.[address] CHANDLER YANCEY MD [facility] 02-21-2024 07:50-0500 Body temperature 99.5 [degF] DR CHANDLER YANCEY MD [facility] 02-21-2024 07:50-0500 Body weight 54.[address] CHANDLER YANCEY MD [facility] 02-21-2024 07:50-0500 Diastolic Blood Pressure Non-Invasive 73 mm[Hg] DR CHANDLER YANCEY MD [facility] 02-21-2024 07:50-0500 Heart rate 95 /min DR CHANDLER YANCEY MD [facility] 02-21-2024 07:50-0500 Respiratory rate 24 /min DR CHANDLER YANCEY MD [facility] 02-21-2024 07:50-0500 Systolic Blood Pressure Non-Invasive 149 mm[Hg] DR CHANDLER YANCEY MD [facility] 02-21-2024 07:46-0500 Body height 147.[address] CHANDLER YANCEY MD [facility] 10-04-2023 09:14-0400 Body height 147.3 cm Saritha Oberhauser DO Work Phone: [facility] 10-04-2023 09:14-0400 Body mass index (BMI) [Ratio] 24.66 kg/m2 Saritha Oberhauser DO Work Phone: [facility] 10-04-2023 09:14-0400 Body weight 53.52 kg Saritha Oberhauser DO Work Phone: [facility] 10-04-2023 09:14-0400 Diastolic blood pressure 82 mm[Hg] Saritha Oberhauser DO Work Phone: [facility] 10-04-2023 09:14-0400 Heart rate 93 /min Saritha Oberhauser DO Work Phone: [facility] 10-04-2023 09:14-0400 Systolic blood pressure 126 mm[Hg] Saritha Oberhauser DO Work Phone: [facility] 04-05-2023 13:36-0500 Body height 147.3 cm Saritha Oberhauser DO Work Phone: [facility] 04-05-2023 13:36-0500 Body mass index (BMI) [Ratio] 23.83 kg/m2 Saritha Oberhauser DO Work Phone: [facility] 04-05-2023 13:36-0500 Body weight 51.71 kg Saritha Oberstuer DO Work Phone: [facility] 04-05-2023 13:36-0500 Diastolic blood pressure 68 mm[Hg] Saritha Oberhauser DO Work Phone: [facility] 04-05-2023 13:36-0500 Heart rate 80 /min Saritha Oberstuer DO Work Phone: [facility] 04-05-2023 13:36-0500 Systolic blood pressure 129 mm[Hg] Saritha Oberstuer DO Work Phone: [facility] 11-29-2022 15:07-0400 Body temperature 98.2 [degF] Dr. Zeke Chapman Work Phone: [facility] 11-29-2022 15:07-0400 Diastolic blood pressure 64 mm[Hg] Dr. Zeke Chapman Work Phone: [facility] 11-29-2022 15:07-0400 Heart rate 82 /min Dr. Zeke Chapman Work Phone: [facility] 11-29-2022 15:07-0400 Respiratory rate 16 /min Dr. Zeke Chapman Work Phone: [facility] 11-29-2022 15:07-0400 SaO2% (BldA) [Mass fraction] 98 % Dr. Zeke Chapman Work Phone: [facility] 11-29-2022 15:07-0400 Systolic blood pressure 104 mm[Hg] Dr. Zeke Chapman Work Phone: [facility] 11-28-2022 08:03-0400 Body height 147.[address] Zeke Chapman Work Phone: [facility] 11-28-2022 08:03-0400 Body mass index (BMI) [Ratio] 24.8 kg/m2 Dr. Zeke Chapman Work Phone: [facility] 11-28-2022 08:03-0400 Body weight 53.[address] Zeke Chapman Work Phone: [facility] 10-14-2022 10:31-0400 Body temperature 97.8 [degF] Dr. Zeke Chapman Work Phone: [facility] 10-14-2022 10:31-0400 Body weight 54.[address] Zeke Chapman Work Phone: [facility] 10-14-2022 10:31-0400 Diastolic blood pressure 67 mm[Hg] Dr. Zeke Chapman Work Phone: [facility] 10-14-2022 10:31-0400 Heart rate 88 /min Dr. Zeke Chapman Work Phone: [facility] 10-14-2022 10:31-0400 Respiratory rate 18 /min Dr. Zeke Chapman Work Phone: [facility] 10-14-2022 10:31-0400 Systolic blood pressure 118 mm[Hg] Dr. Zeke Chapman Work Phone: [facility] 09-02-2022 10:11-0400 Body temperature 98 [degF] Dr. Zeke Chapman Work Phone: [facility] 09-02-2022 10:11-0400 Body weight 55.[address] Zeke Chapman Work Phone: [facility] 09-02-2022 10:11-0400 Diastolic blood pressure 70 mm[Hg] Dr. Zeke Chapman Work Phone: [facility] 09-02-2022 10:11-0400 Heart rate 86 /min Dr. Zeke Chapman Work Phone: [facility] 09-02-2022 10:11-0400 Respiratory rate 18 /min Dr. Zeke Chapman Work Phone: [facility] 09-02-2022 10:11-0400 SaO2% (BldA) [Mass fraction] 100 % Dr. Zeke Chapman Work Phone: [facility] 09-02-2022 10:11-0400 Systolic blood pressure 113 mm[Hg] Dr. Zeke Chapman Work Phone: [facility] 07-15-2022 14:10-0400 Body weight 54.[address] Zeke Chapman Work Phone: [facility] 07-15-2022 14:10-0400 Diastolic blood pressure 74 mm[Hg] Dr. Zeke Chapman Work Phone: [facility] 07-15-2022 14:10-0400 Heart rate 77 /min Dr. Zeke Chapman Work Phone: [facility] 07-15-2022 14:10-0400 Respiratory rate 16 /min Dr. Zeke Chapman Work Phone: [facility] 07-15-2022 14:10-0400 SaO2% (BldA) [Mass fraction] 96 % Dr. Zeke Chapman Work Phone: [facility] 07-15-2022 14:10-0400 Systolic blood pressure 119 mm[Hg] Dr. Zeke Chapman Work Phone: [facility] 04-27-2022 10:05-0500 Diastolic Blood Pressure Non-Invasive [address] CHANDLER YANCEY MD [facility] 04-27-2022 10:05-0500 Heart rate 99 /min DR CHANDLER YANCEY MD [facility] 04-27-2022 10:05-0500 Respiratory rate 14 /min DR CHANDLER YANCEY MD [facility] 04-27-2022 10:05-0500 Systolic Blood Pressure Non-Invasive [address] CHANDLER YANCEY MD [facility] 04-27-2022 10:00-0500 Diastolic Blood Pressure Non-Invasive [address] CHANDLER YANCEY MD [facility] 04-27-2022 10:00-0500 Heart rate 93 /min DR CHANDLER YANCEY MD [facility] 04-27-2022 10:00-0500 Systolic Blood Pressure Non-Invasive [address] CHANDLER YANCEY MD [facility] 04-27-2022 09:55-0500 Diastolic Blood Pressure Non-Invasive [address] CHANDLER YANCEY MD [facility] 04-27-2022 09:55-0500 Heart rate 95 /min DR CHANDLER YANCEY MD [facility] 04-27-2022 09:55-0500 Respiratory rate 14 /min DR CHANDLER YANCEY MD [facility] 04-27-2022 09:55-0500 Systolic Blood Pressure Non-Invasive [address] CHANDLER YANCEY MD [facility] 04-27-2022 09:45-0500 Respiratory Rate - Anes 5 br/min DR CHANDLER YANCEY MD [facility] 04-27-2022 09:40-0500 Respiratory Rate - Anes 36 br/min DR CHANDLER YANCEY MD [facility] 04-27-2022 09:35-0500 Respiratory Rate - Anes 28 br/min DR CHANDLER YANCEY MD [facility] 04-27-2022 07:46-0500 Body height 147.[address] CHANDLER YANCEY MD [facility] 04-27-2022 07:46-0500 Body weight 54.[address] CHANDLER YANCEY MD [address] [place] [address] 04-27-2022 07:46-0500 Body weight 25.12 kg/m2 DR CHANDLER YANCEY MD [address] [place] [address] 04-27-2022 07:29-0500 Body height 147.[address] CHANDLER YANCEY MD [address] [place] [address] 04-27-2022 07:29-0500 Body temperature 96.8 [degF] DR CHANDLER YANCEY MD [address] [place] [address] 04-27-2022 07:29-0500 Body weight 54.[address] CHANDLER YANCEY MD [facility] 04-27-2022 07:29-0500 Heart rate 96 /min DR CHANDLER YANCEY MD [facility] 03-23-2022 09:24-0500 Diastolic Blood Pressure Non-Invasive [address] CHANDLER YANCEY MD [facility] 03-23-2022 09:24-0500 Heart rate 88 /min DR CHANDLER YANCEY MD [facility] 03-23-2022 09:24-0500 Respiratory rate 15 /min DR CHANDLER YANCEY MD [facility] 03-23-2022 09:24-0500 Systolic Blood Pressure Non-Invasive [address] CHANDLER YANCEY MD [facility] 03-23-2022 09:19-0500 Heart rate 96 /min DR HCANDLER YANCEY MD [facility] 03-23-2022 09:13-0500 Body temperature 97.52 [degF] DR CHANDLER YANCEY MD [facility] 03-23-2022 09:13-0500 Diastolic Blood Pressure Non-Invasive [address] CHANDLER YANCEY MD [facility] 03-23-2022 09:13-0500 Heart rate 100 /min DR CHANDLER YANCEY MD [facility] 03-23-2022 09:13-0500 Respiratory rate 26 /min DR CHANDLER YANCEY MD [facility] 03-23-2022 09:13-0500 Systolic Blood Pressure Non-Invasive [address] CHANDLER YANCEY MD [facility] 03-23-2022 09:10-0500 Diastolic Blood Pressure Non-Invasive [address] CHANDLER YANCEY MD [facility] 03-23-2022 09:10-0500 Respiratory Rate - Anes 9 br/min DR CHANDLER YANCEY MD [facility] 03-23-2022 09:10-0500 Systolic Blood Pressure Non-Invasive [address] CHANDLER YANCEY MD [facility] 03-23-2022 09:05-0500 Respiratory Rate - Anes 22 br/min DR CHANDLER YANCEY MD [facility] 03-23-2022 09:00-0500 Respiratory Rate - Anes 19 br/min DR CHANDLER YANCEY MD [facility] 03-23-2022 07:45-[address] CHANDLER YANCEY MD [facility] 03-23-2022 07:45-[address] CHANDLER YANCEY MD [facility] 03-23-2022 07:45-0500 Body temperature 97.34 [degF] DR CHANDLER YANCEY MD [facility] 03-23-2022 07:45-0500 Heart rate 95 /min DR CHANDLER YANCEY MD [facility] 03-23-2022 07:45-0500 Respiratory rate 18 /min DR CHANDLER YANCEY MD [facility] 03-23-2022 07:33-0500 Body height 147.[address] CHANDLER YANCEY MD [facility] 03-23-2022 07:33-0500 Body weight 54.[address] CHANDLER YANCEY MD [facility] 03-23-2022 07:33-0500 Body weight 25.12 kg/m2 DR CHANDLER YANCEY MD [facility] 09-30-2021 15:53-0400 Body height 148.59 cm [facility] Work Phone: Encounters Encounter Date Encounter Type Care Provider Facility Start: 09-26-2024 Evaluation and management of inpatient Dr. Dileep Gipson DO -Progressive Care Unit Work Phone: Start: 09-07-2024 End: 09-07-[address] LUIS CARLOS RODRIGUEZ MD Facility:A Start: 09-07-2024 End: 09-07-[address] LUIS CARLOS RODRIGUEZ MD [facility] Start: 09-06-2024 End: 09-06-2024 ambulatory Alonzo Covarrubias MD Work Phone: -Ultrasound [facility] Start: 09-06-2024 End: 09-06-[address] Anthony Henry MD -Ultrasound [facility] Work Phone: Start: 09-06-2024 End: 09-06-2024 ambulatory Alonzo Koke Facility:[facility] Start: 08-25-2024 End: 08-25-2024 ambulatory Alonzo Covarrubias MD Work Phone: [facility] Work Phone: Start: 08-25-2024 End: 08-25-[address] Anthony Henry MD -Laboratory Work Phone: Start: 08-25-2024 End: 08-25-[address] Anthony Henry MD -[facility] Work Phone: Start: 08-25-2024 End: 08-25-2024 ambulatory Alonzo Covarrubias MD Work Phone: [facility] Work Phone: Start: 08-25-2024 End: 08-25-2024 ambulatory Frankmark Satish Facility:[facility] Start: 08-10-[address] [facility] Start: 07-10-2024 End: 07-10-2024 ambulatory DARRELL COVARRUBIAS MD Facility:[facility] Start: 07-10-2024 End: 07-10-[address] CHANDLER YANCEY MD [facility] Start: 07-03-2024 ambulatory Saritha [place] Facility :[facility] Start: 06-19-2024 End: 06-19-2024 ambulatory Alonzo Covarrubias MD Work Phone: [facility] Work Phone: Start: 06-19-2024 End: 06-19-[address] Chandler Yancey MD -Laboratory, [place] Work Phone: Start: 06-19-2024 End: 06-19-2024 ambulatory Alonzo Covarrubias Facility:[facility] Start: 06-05-2024 End: 06-05-2024 ambulatory Alonzo Covarrubias MD Work Phone: [facility] Work Phone: Start: 06-05-2024 End: 06-05-2024 Patient encounter procedure TOYIN PACHECO MD -Laboratory, [place] Work Phone: Start: 06-05-2024 End: 06-05-2024 ambulatory TOYIN PACHECO Facility:[facility] Start: 04-14-2024 End: 04-14-[address] Alonzo Covarrubias MD -Laboratory, [place] Work Phone: Start: 04-14-2024 End: 04-14-2024 ambulatory Alonzo Covarrubias Facility:[facility] Start: 02-21-2024 End: 02-21-2024 ambulatory DARRELL COVARRUBIAS MD Facility:[facility] Start: 02-21-2024 End: 02-21-[address] CHANDLER YANCEY MD [facility] Start: 01-26-2024 End: 01-26-2024 [facility] Start: 01-12-2024 End: 01-12-2024 [facility] Start: 11-22-2023 End: 11-22-2023 ambulatory Saritha Oberhauser [facility] Start: 11-18-2023 End: 11-18-2023 ambulatory Saritha Oberhauser [facility] Start: 11-09-2023 End: 11-09-2023 Telephone encounter Jeffry Royal MD Work Phone: Hematology/Oncology Comment on above: Appointment Start: 11-05-2023 End: 11-05-2023 [facility] Start: 10-04-2023 End: 10-04-2023 Patient encounter procedure Saritha Coles DO Work Phone: [facility] Comment on above: Type 2 diabetes jerica itus without complication, without long- term current use of insulin (Multi) (Primary Dx); Acquired hypothyroidism; Autoimmune hepatitis (Multi); Other cirrhosis of liver (Multi); Idiopathic esophageal varices with bleeding (Multi); Rheumatoid arthritis involving both shoulders with positive rheumatoid factor (Multi); Systemic lupus erythematosus, unspecified SLE type, unspecified organ involvement status (Multi); Medicare annual wellness visit, subsequent Start: 10-04-2023 End: 10-05-2023 ambulatory [facility] Start: 10-04-2023 End: 10-04-2023 Encounter for general adult medical examination without abnormal findings [facility] Ambulatory Start: 06-18-2023 End: 06-18-2023 ambulatory [facility] Start: 06-03-2023 End: 06-03-2023 ambulatory [facility] Work Phone: Start: 06-03-2023 End: 06-03-2023 Patient encounter procedure [facility]-Ultrasound, [facility] Work Phone: Start: 05-18-2023 End: 05-18-2023 ambulatory JEFFRY ROYAL Facility:[facility] Start: 04-05-2023 End: 04-05-2023 Office outpatient new 45 minutes Saritha Chaudhary Lopezjazmynyan VILLA Work Phone: [facility] Comment on above: Idiopathic esophagea l varices with bleeding (CMS/HCC) (Primary Dx); Other cirrhosis of liver (CMS/HCC); Autoimmune hepatitis (CMS/HCC); Systemic lupus erythematosus, unspecified SLE type, unspecified organ involvement status (CMS/HCC); Rheumatoid arthritis involving both shoulders with positive rheumatoid factor (CMS/HCC); Acquired hypothyroidism; Type 2 diabetes mellitus without complication, without long-term current use of insulin (CMS/HCC) Start: 03-30-2023 End: 03-30-[address] Zeke Chapman Work Phone: [facility] Work Phone: Start: 03-30-2023 End: 03-30-[address] Zeke Chapman Work Phone: [facility] Work Phone: Start: 02-10-2023 End: 02-10-[address] Zeke Chapman Work Phone: [facility] Work Phone: Start: 02-10-2023 End: 02-10-[address] Zeke Chapman Work Phone: [facility] Work Phone: Start: 12-03-2022 End: 12-03-[address] Zeke Chapman Work Phone: [facility] Work Phone: Start: 11-29-2022 Non-patient / Non-visit Dr. Zeke Chapman Work Phone: [facility] Start: 11-28-2022 Non-patient / Non-visit Dr. Zeke Chapman Work Phone: [facility] Start: 11-28-2022 End: 11-29-2022 Evaluation and management of inpatient Dr. Zeke Chapman Work Phone: [facility] Work Phone: Start: 11-27-2022 Non-patient / Non-visit Dr. Zeke Chapman Work Phone: [facility] Work Phone: Start: 11-09-2022 End: 11-09-[address] Zeke Chapman Work Phone: [facility] Work Phone: Start: 11-09-2022 End: 11-09-[address] Zeke Chapman Work Phone: [facility], [facility] Work Phone: Start: 10-14-2022 End: 10-14-[address] Zeke Chapman Work Phone: [facility] Work Phone: Start: 09-21-2022 Non-patient / Non-visit Dr. Zeke Chapman Work Phone: [facility] Start: 09-21-2022 End: 09-21-[address] [facility]: Start: 09-18-2022 End: 09-23-2022 ambulatory TOYIN PACHECO MD Facility:A Start: 09-02-2022 End: 09-02-[address] Zeke Chapman Work Phone: [facility] Work Phone: Start: 07-15-2022 End: 07-15-[address] Zeke Chapman Work Phone: [facility] Work Phone: Start: 07-15-2022 End: 07-15-[address] Zeke Chapman Work Phone: [facility] Start: 06-19-2022 Non-patient / Non-visit Dr. Zeke Chapman Work Phone: [facility] Start: 06-19-2022 End: 06-19-[address] Zeke Chapman Work Phone: [facility] Work Phone: Start: 06-19-2022 End: 06-19-[address] Zeke Chapman Work Phone: [facility]Cardi[facility] Services Start: 04-28-2022 AUDIT Zeke sharma Work Phone: ZQ[facility]Rikytgijruectfys-Unsbof [facility] Work Phone: Start: 04-27-2022 End: 04-27-[address] CHANDLER YANCEY MD Facility:B Start: 04-27-2022 End: 04-27-[address] CHANDLER YANCEY MD [facility] Start: 04-09-2022 End: 04-09-2022 ambulatory [facility] Work Phone: Start: 04-09-2022 End: 04-09-2022 Patient encounter procedure [facility] Start: 03-30-2022 ambulatory Zeke Chapman Faci lity:[id number] Start: 03-23-2022 End: 03-23-[address] CHANDLER YANCEY MD Facility:B Start: 03-23-2022 End: 03-23-[address] CHANDLER YANCEY MD [facility] Start: 02-13-2022 End: 02-13-2022 ambulatory [facility] Work Phone: Start: 02-13-2022 End: 02-13-2022 Patient encounter procedure [facility], [facility] Start: 01-29-2022 End: 02-11-2022 ambulatory [facility] Work Phone: Start: 01-29-2022 End: 02-11-2022 Discharged Recurring [facility]-Laboratory Start: 09-30-2021 End: 09-30-2021 Patient encounter procedure [facility]-Outpatient Bone Densitometry Start: 08-25-2021 End: 09-11-2021 Discharged Recurring [facility] Start: 08-04-2021 Office outpatient visit 15 minutes Zeke Chapman Work Phone: XY-Lvfgvprvyapjbami-Fydwpe [facility] Work Phone: Start: 08-04-2021 Patient encounter procedure Zeke Chapman Work Phone: FC-Afixxqmmtijpoifg-Immwss ke [facility] Work Phone: Start: 08-04-2021 [id number] Start: 07-02-2021 End: 07-02-2021 Subsequent hospital visit by physician Toyin Pacheco MD Work Phone: [facility] Comment on above: M32.9 Start: 06-13-2021 End: 06-13-2021 Patient encounter procedure [facility] Start: 06-06-2021 End: 06-06-2021 Patient encounter procedure [facility] Start: 03-12-2021 Patient encounter procedure [facility] Start: 12-23-2020 Office outpatient visit 15 minutes Zeke Chapman Work Phone: TG-Rfirkcvaucvvekyf-Gmeffl ke [facility] Work Phone: Start: 12-23-2020 Patient encounter procedure Zeke Chapman Work Phone: LG-Wtutsxrmcsudkhwr-Icddoa ke [facility] Work Phone: Start: 09-11-2020 Telephone encounter Zeke neely Work Phone: QG-Kjkfrhselntbonjb-Ipuefl ke [facility] Work Phone: Procedures Date Procedure Procedure Detail Performing Clinician Start: 09-26-2024 Urnls dip stick/tablet reagent auto microscopy Alonzo Covarrubias MD Work Phone: Start: 09-26-2024 Computed tomography of abdomen and pelvis with intravenous contrast Alonzo Covarrubias MD Work Phone: Start: 09-26-2024 Plain chest X-ray Alonzo Covarrubias MD Work Phone: Start: 09-26-2024 Estimated creatinine clearance Alonzo thomas MD Work Phone: Start: 09-06-2024 Ultrasound elastography of liver Alonzo Covarrubias MD Work Phone: Start: 08-25-2024 Albumin/Globulin ratio Alonzo Covarrubias MD Work Phone: Start: 08-25-2024 Ceruloplasmin measurement Alonzo Covarrubias MD Work Phone: Comment on above: Performed at: [facility] [employer] [id number] [place], [place] [id number] Director: Chandler Brock PhD, Phone: [phone] at: [facility] [employer] [id number] Director: Denver Delong MD, Phone: [phone] Start: 08-25-2024 Hepatitis A virus antibody, IgM type Alonzo Covarrubias MD Work Phone: Comment on above: A negative anti-HAV IgM result suggests no recent orcurrent HAV infection. Start: 08-25-2024 Hepatitis B core antibody measurement, IgM type Alonzo Covarrubias MD Work Phone: Start: 08-25-2024 Hepatitis C antibody measurement Alonzo Covarrubias MD Work Phone: Start: 08-25-2024 Immunoglobulin M measurement Alonzo Covarrubias MD Work Phone: Start: 08-25-2024 Procedure Alonzo Covarrubias MD Work Phone: Comment on above: Test Ordered: [id number] Autoimmune Liver Pr ofile (RDL)Test(s) 872987-Hkme-Rrimmtr Ab by IFA (RDL); 707593-Wxzwwcffbjs Pattern; 411740-Xsuijkqht Pattern; 340603-Eercomww Pattern; 297509-Adwphgijyy Pattern; 513458-Afhltun Apparatus Pattern; 402647-Xodwjbm Membrane Pattern;829440-Cuczxty Pattern; 701028-Jrqnser Dot Pattern; 447354-QSDB Pattern; 194202-Fjpwdkhos Patternwas developed and its performance characteristicsdetermined by [employer]. It has not been cleared or approvedby the Food and Drug Administration.Anti-Nuclear Ab by IFA (RDL) Positive [A ] [employer] Reference Range: NegativeHomogeneous Pattern [employer] NOLAB Reference Range: .Nucleolar Pattern [employer] REPA[employer]OL[employer] Reference Range: .Speckled Pattern 1:1280 [H ] [employer] Reference Range: <1:40Centromere Pattern CARBURETOR REPAIRER NOLAB Reference Range: .Spindle Apparatus Pattern CARBURETOR REPAIRER NOLAB Reference Range: .Nuclear Membrane Pattern CARBURETOR REPAIRER NOLAB Reference Range: .Midbody Pattern [employer]BU[employer] REPA[employer] Reference Range: .Nuclear Dot Pattern CARBURETOR REPAIRER NOLAB Reference Range: .PCNA Pattern CARBURETOR REPAIRER NOL[employer] Reference Range: .Centriole Pattern CARBURETOR REPAIRER NOLAB Reference Range: .Note: Comment [employer]SE[employer] Reference Range: .ILDA performed by Indirect Fluorescent Antibody (IFA)Test(s) 093340-Cpqt-Bupqu/Kidney Ab (RDL); 359346-Utmx-Nzlcmggpvvwbi Ab by IFAwas developed and its performance characteristicsdetermined by [employer]. It has not been cleared or approvedby the Food and Drug Administration.ANCA by IFA (RDL) Negative [employer] Reference Range: NegativeAnti-Chromatin Ab, IgG (RDL) 21 [H ] Units [employer] Reference Range: <20Anti-Liver/Kidney Ab (RDL) <20 Units [employer] Reference Range: <20 Negative: <20 Equivocal: 20 - 25 Positive: >25Anti-Mitochondrial M2 Ab (RDL) 161 [H ] Units [employer] Reference Range: <20 Negative: <20 Equivocal: 20 - 25 Positive: >25Anti-Soluble Liver Ag Ab (RDL) <20 Units [employer] Reference Range: <20 Negative: <20 Equivocal: 20 - 25 Positive: >25Anti-Smooth Muscle Ab by IFA <1:20 [employer] Reference Range: <1:20Anti-Mitochondrial Ab by IFA <1:20 [employer] Reference Range: <1:20 Interpretation for Anti-Chromatin: Negative: <20 Moderate Positive: 20 - 60 Strong Positive: >60Performed at: [facility] [employer] [id number] [place], [place] [id number] Director: Edouard Easton MD, Phone: [phone] at: [address] [id number] Director: Chandler Brock PhD, Phone: [phone] Start: 08-25-2024 Total iron binding capacity measurement Alonzo Covarrubias MD Work Phone: Start: 08-25-2024 Vitamin D, 25-hydroxy measurement Alonzo Covarrubias MD Work Phone: Comment on above: Vitamin D StatusDeficiency: <20 ng/mL (5 0nmol/L)Insufficiency: 20-30 ng/mL (50-75 nmol/L)Sufficiency: 30-100 ng/mL (75-250 nmol/L)Toxicity: >100 ng/mL (>250 nmol/L) Start: 06-19-2024 Raqbn-5-Gijhskjtzam measurement Alonzo paul MD Work Phone: Comment on above: [employer] Electrochemil[employer] Immunoassay(ECLIA)Values obtained with different assay methods or kits cannotbe used interchangeably. Results cannot be interpreted asabsolute evidence of the presence or absence of malignantdisease.This test is not interpretable in females.Performed at: [employer] [place] [id number] Director: Chandler Brock PhD, Phone: [phone] Start: 06-05-2024 C>3< complement assay Alonzo Covarrubias MD Work Phone: Comment on above: Performed at: [employer] [address] [id number] Director: Chandler Brock PhD, Phone: [phone] Start: 06-05-2024 Urnls dip stick/tablet reagent auto microscopy Alonzo Covarrubias MD Work Phone: Start: 10-04-2023 Lipid 1996 panel - Serum or Plasma Jeffry Royal MD Work Phone: Start: 06-18-2023 Hemoglobin A1c/Hemoglobin.total in Blood SARITHA OBERHAUSER Start: 06-18-2023 TSH WITH REFLEX TO FREE T4 IF ABNORMAL SARITHA OBERHAUSER Start: 06-18-2023 Thyrotropin [Units/volume] in Serum or Plasma Saritha Oberhauser DO Work Phone: Start: 06-03-2023 Ultrasonography of abdomen Start: 11-28-[address] Zeke estrada Work Phone: Start: 11-27-2022 Plain chest X-ray Dr. Zeke Chapman Work Phone: Start: 11-27-2022 Measurement of occult blood in stool specimen using immunoassay Dr. Zeke Chapman Work Phone: Start: 11-27-2022 SARS-CoV-2 & FLU Antigen (Rapid) Dr. Martínez Chapman Work Phone: Start: 11-09-[address] Zeke estrada Work Phone: Start: 02-13-2022 Ultrasonography of abdomen Start: 09-30-2021 Dual energy X-ray absorptiometry Start: 06-13-2021 Ultrasonography of abdomen Cataract surgery Zeke estrada Work Phone: section Zeke estrada Work Phone: section DR CHANDLER YANCEY MD Comment on above: x2 [address]ophagog[address] BERNA YANCEY MD Extraction of cataract DR BROOKE YANCEY MD Tooth extraction, multiple D R CHANDLER YANCEY MD Plan of Treatment Date Care Activity Detail Author Start: 10-03-2028 Lipid panel Lipid Screening [facility] Start: 10-03-2026 Diabetes Screening Diabetes Screenin g [facility] Start: 10-04-2024 Medicare Annual Well ness Visit Medicare Annual Wellness Visit (AWV) [facility] Start: 09-26-2024 Hospital admission, emergency, from emergency room, medical nature [facility] Start: 09-26-2024 Cell count and Differential panel - Body fluid [facility] Start: 09-26-2024 [facility] Start: 09-26-2024 Verification routine [facility] Start: 09-26-2024 Admission procedure [facility] Start: 08-25-2024 Procedure [facility] Start: 07-13-2024 Glaucoma screening Diabetes: R etinopathy Screening [facility] Start: 06-17-2024 Thyroid stimulating hormone measurement TSH Level [facility] Start: 04-10-2024 End: 04-10-2024 Patient encounter procedure 04/10/2024 1:00 PM EST Office Visit [facility] [address] [place] [address] Saritha Coles, DO [address] [place] [address] [facility] Start: 11-14-2023 Influenza vaccination Influenza Vacc ine (#1) [facility] Start: 10-04-2023 End: 10-03-2024 Hemoglobin A1c/Hemoglobin.total in Blood Hemoglobin A1C Lab Routine Type 2 diabetes mellitus without complication, without long-term current use of insulin (Multi) Expected: 10/04/2023 (Approximate), Expires: 10/03/2024 [facility] Work Phone: Comment on above: Expected: 10/04/2023 (Approximate), Expires: 10/03/2024 Start: 10-04-2023 End: 10-03-2024 Lipid 1996 panel - Serum or Plasma Lipid Panel Lab Routine Type 2 diabetes mellitus without complication, without long-term current use of insulin (Multi) Expected: 10/04/2023 (Approximate), Expires: 10/03/2024 [facility] Work Phone: Comment on above: Expected: 10/04/2023 (Approximate), Expires: 10/03/2024 Start: 10-04-2023 End: 10-03-2024 TSH with reflex to Free T4 if abnormal TSH with reflex to Free T4 if abnormal Lab Routine Acquired hypothyroidism Expected: 10/04/2023 (Approximate), Expires: 10/03/2024 [facility] Work Phone: Comment on above: Expected: 10/04/2023 (Approximate), Expires: 10/03/2024 Start: 10-04-2023 End: 10-04-2023 ambulatory 10/04/2023 10:00 AM EDT Lab [facility] [address] [place] [id number] Type 2 diabetes mellitus without complication, without long-term current use of insulin (Multi); Acquired hypothyroidism [facility] Comment on above: Type 2 diabetes jerica itus without complication, without long- term current use of insulin (Multi); Acquired hypothyroidism Start: 09-17-2023 Hemoglobin A1c measurement Diabetes: Hemoglobin A1C [facility] Start: 04-05-2023 End: 04-05-2024 Hemoglobin A1c/Hemoglobin.total in Blood Hemoglobin A1C Lab Routine Type 2 diabetes mellitus without complication, without long-term current use of insulin ([facility]) Expected: 04/05/2023 (Approximate), Expires: 04/05/2024 [facility] Work Phone: Comment on above: Expected: 04/05/2023 (Approximate), Expires: 04/05/2024 Start: 04-05-2023 End: 04-05-2024 TSH with reflex to Free T4 if abnormal TSH with reflex to Free T4 if abnormal Lab Routine Acquired hypothyroidism Expected: 04/05/2023 (Approximate), Expires: 04/05/2024 [facility] Work Phone: Comment on above: Expected: 04/05/2023 (Approximate), Expires: 04/05/2024 Start: 03-15-2023 Advance Directive Discussion Advance Directive Discussion [facility] Start: 11-29-2022 Patient discharge [facility] Start: 11-29-2022 [facility] Start: 11-28-2022 Admission procedure [facility] Start: 11-28-2022 Application of intermittent pneumatic compression device [facility] Start: 11-28-2022 Following clinical pathway protocol [facility] Start: 11-27-2022 End: 11-28-2022 [facility] Start: 11-27-2022 Assessment of risk o f venous thromboembolism [facility] Start: 11-27-2022 Care planning and pr oblem solving actions [facility] Start: 11-27-2022 Care regimes management [facility] Start: 11-27-2022 Insertion of cathete r into peripheral vein [facility] Start: 11-27-2022 Notification of physician [facility] Start: 11-27-2022 Providing care accor ding to standard [facility] Start: 11-27-2022 Provision of activit y privileges [facility] Start: 11-27-2022 Referral to general surgeon [facility] Start: 11-27-2022 Referral to service [facility] Start: 11-27-2022 Vitamin B12 measurement [facility] Start: 11-27-2022 Admission procedure [facility] Start: 11-27-2022 Administration of bl ood product [facility] Start: 11-13-2022 Influenza vaccination Influenza Vacc ine (#1) [facility] Start: 11-13-2021 Influenza vaccination INFLUENZA (Sea son Ended) [facility] Start: 07-24-2021 COVID-19 Vaccine (3 - Moderna risk series) COVID-19 Vaccine (3 - Moderna risk series) [facility] Start: 2021 ADVANCE DIRECTIVE DISCUSSION ADVANCE DIRECTIVE DISCUSSION [facility] Start: 2021 BONE DENSITY BONE DENSITY [facility] Start: 2021 PNEUMOVAX AGE 65 AND OVER WITH 5YR LOOKBACK (#1) PNEUMOVAX AGE 65 AND OVER WITH 5YR LOOKBACK (#1) [facility] Start: 2021 Screening for osteoporosis Bone Density Screening [facility] Start: 11-19-2020 DTaP/Tdap/Td Vaccine s (2 - Td or Tdap) DTaP/Tdap/Td Vaccines (2 - Td or Tdap) [facility] Start: 11-19-2020 Urine microalbumin profile DTaP,Tdap,Td Vaccine (2 - Td or Tdap) [facility] Start: 2016 Hepatitis B Vaccines (1 of 3 - Risk 3-dose series) Hepatitis B Vaccines (1 of 3 - Risk 3-dose series) [facility] Start: 2016 RSV patient s and/or patients aged 60+ years (1 - 1-dose 60+ series) RSV patients and/or patients aged 60+ years (1 - 1-dose 60+ series) [facility] Start: 2016 RSV Vaccine (1 - 1-d ose 60+ series) RSV Vaccine (1 - 1-dose 60+ series) [facility] Start: 09-20-2011 DIABETES SCREEN DIABETES SCREEN [facility] Start: 2006 SHINGRIX VACCINE (1 of 2) IBARRA GRIX VACCINE (1 of 2) [facility] Start: 2001 COLOGUARD (FIT-DNA) COLOGUARD (FIT-D NA) [facility] Start: 2001 Colonoscopy COLONOSCOPY [facility] Start: 2001 COLORECTAL CANCER SCREENING COLORECTAL CANCER SCREENING [facility] Start: [address] COLONOGRAPHY [facility] Start: 2001 FECAL OCCULT BLOOD FECAL OCCULT BLOO D [facility] Start: 2001 LIPID SCREEN LIPID SCREEN [facility] Start: 2001 Screening for malign ant neoplasm of colon [facility] Start: 2001 SIGMOIDOSCOPY SIGMOIDOSCOPY [facility] Start: 1996 Mammography MAMMOGRAM [facility] Start: 1996 Screening for malign ant neoplasm of breast [facility] Start: 06-27-1975 Hepatitis A Vaccines (1 of 2 - Risk 2-dose series) Hepatitis A Vaccines (1 of 2 - Risk 2-dose series) [facility] Start: 06-27-1975 Shingrix Vaccine (1 of 2) Ibarra grix Vaccine (1 of 2) [facility] Start: 06-27-1975 Urine microalbumin profile DTAP,TDAP,TD (1 - Tdap) [facility] Start: 06-27-1975 Urine screening for protein Diabetes: Urine Protein Screening [facility] Start: 06-27-1975 Zoster Vaccines (1 of 2) Zoster Vacc rafael (1 of 2) [facility] Start: 1974 Anxiety Screening Anxiety Screening [facility] Start: 1974 Depression Screening Depression Scre ening [facility] Start: 1974 Hepatitis C screening Hepatitis C Sc reening [facility] Start: 1974 HIV SCREENING HIV SCREENING [facility] Start: 1968 Adult depression screening assessment DEPRESSION SCREENING [facility] Start: 06-27-1967 Screening for malign ant neoplasm of cervix Cervical Cancer Screening [facility] Start: 1966 Diabetic foot examination Diabetes: Foot Exam [facility] Start: 1962 Pneumococcal Vaccine : 65+ (1 of 2 - PCV) Pneumococcal Vaccine: 65+ (1 of 2 - PCV) [facility] Start: 1962 Pneumococcal Vaccine : 65+ Years (1 - PCV) Pneumococcal Vaccine: 65+ Years (1 - PCV) [facility] Start: 1962 Pneumococcal Vaccine : 65+ Years (1 of 2 - PCV) Pneumococcal Vaccine: 65+ Years (1 of 2 - PCV) [facility] Start: 1961 COVID-19 VACCINE (1) COVID-19 VACCIN E (1) [facility] Start: 1956 Lipid panel Lipid Panel [facility] Start: 1956 Medicare Annual Well ness Visit Medicare Annual Wellness Visit (AWV) [facility] Start: 1956 Screening for malign ant neoplasm of colon [facility] Start: 1956 Screening for osteoporosis Bone Density Scan [facility] CBC W Auto Different ial panel - Blood [facility] Comprehensive metabo lic 2000 panel - Serum or Plasma [facility] Folate [Moles/volume ] in Serum or Plasma [facility] Liver stiffness by US.transient elastography [facility] Patient referral [facility] Work Phone: Prothrombin time [facility] Vitamin B12 measurement [facility] Immunizations Immunization Date Immunization Notes Care Provider Vinny scott 02-17-2021 influenza virus vaccine, unspecified formulation Saritha Coles DO Work Phone: [facility] Work Phone: 12-13-2017 Influenza virus vaccine [facility] Payers Date Payer Category Payer Private Health Insurance [id number] 2024 Unknown 2023 Self-pay [id number] 2021 Medicare [id number] 2021 Medicare [id number] 2015 Private Health Insurance [facility] [id number] 2008 Unknown [employer] CARD PPO OOS [id number] 2008-Present [phone] [address] [place] [address] PPO [id number] .[id number] 1955 Unknown [id number] 2.16.840.1.132494.3.579.2.3 56 1955 Unknown [id number] 2.16.840.1.601612.3.579.2.3 56 1955 Unknown [id number] 2.16.840.1.989697.3.579.2.6 27 1955 Unknown [id number] 2.16.840.1.773873.3.579.2.6 27 1956 Unknown [id number] 2.16.840.1.604226.3.579.2.6 27 1956 Unknown [id number] 2.16.840.1.910128.3.579.2.1 245 1956 Unknown [id number] 2.16.840.1.519040.3.579.2.1 245 1956 Unknown [id number] 2.16.840.1.607242.3.579.2.1 244 1956 Unknown [id number] 2.16.840.1.697318.3.579.2.6 27 1956 Unknown [id number] 2.16.840.1.559776.3.579.2.6 27 1956 Unknown [id number] 2.16.840.1.736522.3.579.2.6 27 1956 Unknown [id number] 2.16.840.1.771865.3.579.2.6 27 Unknown [id number] Unknown [id number] 2.16.840.1.106809.3.579.2.4 62 Unknown [id number] 2.16.840.1.886358.3.579.2.4 62 Unknown [id number] 2.16.840.1.545913.3.579.2.4 62 Unknown [id number] 2.16.840.1.797321.3.579.2.4 62 Unknown [id number] 2.16.840.1.072035.3.579.2.4 62 Unknown [id number] 2.16.840.1.134774.3.579.2.4 62 Unknown [id number] 2.16.840.1.696458.3.579.2.4 62 Unknown [id number] 2.16.840.1.743667.3.579.2.4 62 Unknown [id number] 2.16.840.1.654678.3.579.2.4 62 Unknown [id number] 2.16.840.1.434935.3.579.2.4 62 Unknown [id number] 2.16.840.1.141243.3.579.2.4 62 Unknown [id number] 2.16.840.1.388385.3.579.2.4 62 Unknown [id number] 2.16.840.1.223341.3.579.2.4 62 Unknown [id number] 2.16.840.1.142914.3.579.2.4 62 Social History Date Type Detail Facility Start: 04-05-2023 End: 10-04-2023 Former smoker Former smoker [address] Work Phone: Start: 09-21-2018 End: 11-28-2022 Tobacco smoking status NHIS Unknown if ever smoked [facility] Start: 04-05-2023 End: 10-04-2023 History of tobacco use [facility] Work Phone: Start: 09-22-2018 None [facility] Start: 09-22-2018 Spouse/ Signif icant Other [facility] Start: 09-22-2018 Non-smoker [facility] Start: 1955 Sex Assigned At Female A [facility] Start: 03-20-2022 End: 09-26-2024 Tobacco smoking status NHIS Ex-smoker [facility] End: 03-15-2008 History of tobacco use Current smoker [facility] Start: 09-19-2008 End: 05-18-2023 Alcohol intake Not Asked [facility] Start: 1955 Sex Assigned At Not on file C [facility] End: 03-15-2008 History of tobacco use Cigarette Smoker [facility] Work Phone: Start: 04-05-2023 End: 10-04-2023 Tobacco use and exposure Smokeless tobacco non-user [facility] Work Phone: Start: 04-05-2023 End: 10-04-2023 Alcohol intake Ex-drinker (finding) [facility] Work Phone: Start: 03-26-2023 End: 10-04-2023 Exposure to SARS-CoV-2 (event) Not sure [facility] Start: 05-18-2023 Tobacco Comment Pt smoked on & off x 10 years [facility] Start: 02-26-2022 End: 06-10-2024 Sex Female (finding) [facility] Sexual Orientation Carolyn Ortiz NEGATED: Highlighted row [facility] Goals Date Patient Goal Desired Activity /State Functional Status Date Assessment Result Facility 07-10-2024 Functional Status Awake Carolyn Ortiz 07-10-2024 Functional Status Maintained Carolyn Ortiz 02-21-2024 Functional Status Maintained [facility] 11-29-2022 Functional status Patient Activity Chair [facility] Work Phone: 11-29-2022 Functional status With Assist of 1 [facility] Work Phone: 04-27-2022 [facility] 04-27-[facility]22 Functional Status Maintained [facility] 03-23-2022 Functional Status Sleeping [facility] 03-23-2022 Functional Status Maintained [facility] Mental Status Date Assessment Result Facility 09-26-2024 Cognitive function Level Of Consciousness Drowsy [facility] Work Phone: 07-10-2024 Mental Status Oriented x 4 [facility] 07-10-2024 Mental Status [facility] 02-21-2024 Mental Status Orientation Oriented x 4 [facility] 11-29-2022 Cognitive function Voice/Name [facility] Work Phone: 04-27-2022 Mental Status Oriented x 4 [facility] 03-23-2022 Mental Status Oriented x 4 [facility] Clinical Notes 08-04-2021 to 09-26-2024 Note Date & Type Note Facility 09-26-2024 Radiology Diagnostic study note [facility] [address] [place] [address] Abdomen/Pelvis W IV Cont ONLY MR#: [id number] Acct: [id number] Name: VANNESSA PRESTON Rep #: [id number] : 1955 F 69 From: Drew House MD PCP: Dr. Alonzo Covarrubias MD Status: REG ER Study:Abdomen/Pelvis W IV Cont ONLY Date of E xam: 09/26/24 Exam# [id number] Ordering Dr: Abdiel Vines DO PROCEDURE: There is no mesenteric, retroperitoneal or pelvic lymphadenopathy. 09/26/2024 REASON FOR EXAM: ABDOMINAL PAIN TECHNIQUE: ABDOMEN/PELVIS W IV CONT ONLY Coronal and Sagittal reconstruction series were provided. CONTRAST: Isovue 370 VOLUME: 99 mL One or more dose reduction techniques were used (e.g., Automated exposure control, adjustment of the mA and/or kV according to patient size, use of iterative reconstruction technique. RADIATION DOSE SUMMARY: CTDlvol: 35.50 mGy DLP: 759.60 mGycm COMPARISON: None. FINDINGS: Lung bases: There is a small left pleural effusion with left basilar atelectasis. The lung bases are otherwise clear. The heart size is normal. There is no pericardial effusion. There is minimal calcific vascular disease of the visualized thoracic aorta in the coronary arteries. Liver: The liver is cirrhotic. There is nonocclusive thrombus in the main portal vein, the left portal vein, the superior mesenteric vein, in the splenic vein Gallbladder: There are multiple gallstones. Spleen: There is moderate splenomegaly with the spleen measuring 17.5 cm in axial dimension. There is a small defect in the lower pole of the spleen, probably a scar. Pancreas: Normal. Adrenals: Normal. Kidneys: There are small left renal cortical cysts. The right kidney is unremarkable. Bladder: Normal. Reproductive Organs: The uterus is unremarkable. The ovaries are not identified. There is no inguinal lymphadenopathy. Bowel: There is a small hiatal hernia. The gastrointestinal tract is otherwise unremarkable. Appendix: Normal. Lymph nodes: There is no mesenteric, retroperitoneal or pelvic lymphadenopathy. Vasculature: There is calcific vascular disease of the abdominal aorta. The inferior vena cava is unremarkable. Extensive nonocclusive thrombus is noted in the portal venous system. Peritoneum / Retroperitoneum: There is a large amount of ascites. Bones: There is diffuse osteopenia and there is central compression of numerous thoracic and lumbar vertebral bodies. There are no significant retropulsed fragments. CT/Abdomen/Pelvis W IV Cont ONLY IMPRESSION: 1. Extensive nonocclusive thrombus in the portal venous system. 2. Hepatic cirrhosis. 3. Moderate splenomegaly. 4. Cholelithiasis. 5. Diffuse osteopenia of the visualized spine with numerous compression fractures without retropulsed fragments. 6. There is a large amount of ascites. Note: Findings [facility] on the afternoon of 09/26/2024 at 16:50 p.m. Reading Location: [place] [address] CC: Dr. Alonzo Covarrubias MD; Dr. Abdiel Vines DO ~ Hearing Consultant: Signed [facility] Work Phone: 09-26-2024 Radiology Diagnostic study note [facility] Imaging Services [address] [place] [address] Chest 1 View (Portable) MR#: [id number] Acct: [id number] Name: VANNESSA PRESTON Rep #: [id number] : 1955 F 69 From: Drew House MD PCP: Dr. Alonzo Covarrubias MD Status: [facility] ER Study:Chest 1 View (Portable) Date of Exam: 09/26/24 Exam# [id number] Ordering Dr: Abdiel Vines DO PROCEDURE: CHEST 1 VIEW (PORTABLE) 09/26/2024 REASON FOR EXAM: WEAKNESS TECHNIQUE: Frontal view of the chest. COMPARISON: Portable chest, 11/27/2022. FINDINGS: The image was obtained during a poor inspiratory effort. There may be bibasilaratelectasis. The heart size is normal. RAD/Chest 1 View (Portable) IMPRESSION: Possible bibasilar atelectasis. Reading Location: [place] [address] CC: Dr. Alonzo Covarrubias MD; Dr. Abdiel Vines DO ~ Hearing Consultant: Signed [facility] Work Phone: 09-06-2024 Radiology Diagnostic study note [facility] Imaging Services [address] [place] [address] ABD Limited w/ Elastography MR#: [id number] Acct: [id number] Name: VANNESSA PRESTON Rep #: [id number] : 1955 F 69 From: Robert Meier MD PCP: Dr. Alonzo Covarrubias MD Status: REG CL I Study:ABD Limited w/ Elastography Date of Exa m: 09/06/24 Exam# [id number] Ordering Dr: Crystal Henry MD PROCEDURE: ABD LIMITED W/ ELASTOGRAPHY REASON FOR EXAM: CIRRHOSIS WITH ASCITES, SPLENOMEGALY COMPARISON: November 22, 2023. TECHNIQUE: Right upper quadrant abdominal ultrasound. Joel ElastQ Imaging shear wave elastography for non-invasive assessment of liver tissue stiffness. Joel EPIQ Elite. FINDINGS: LIVER: Size: Unremarkable Length: 13.3 cm Echotexture: Diffusely echogenic suggesting fatty infiltration Contour: Normal Lesions: None identified Elastography: EQI Med: 24 kPa EQI Med Alvin: 2.81 m/s IQR/Med: 23.5 %* GALLBLADDER: Solitary gallstone measuring 9 mm x 10 mm x 8 mm. This is in the neck of the gallbladder. Gallbladder wall thickening measure 6.5 mm. COMMON BILE DUCT: Normal measuring 5.3 mm. . PANCREAS: Normal Visualized portions of the right kidney are unremarkable. No right upper quadrant ascites. Splenomegaly. The spleen measures 16 cm x 7.3 cm 8.3 cm. US/ABD Limited w/ Elastography IMPRESSION: SEVERE HEPATIC FIBROSIS / CIRRHOSIS Solitary gallstone in the neck of the gallbladder with a thickened gallbladder wall. Splenomegaly. Reference Values: SRU <1.37 m/s (5.7kPa): No to mild fibrosis 1.37 m/s - 2.2 m/s: Moderate to severe fibrosis >2.2 m/s (15kPa): Significant fibrosis / cirrhosis METAVIR Score F2 or higher: 1.34 m/s (5.7kPa) F3 or higher: 1.55 m/s (7.3kPa) F4: 1.80 m/s (10kPa) * If the IQR/Med is >30%, the variance in the measurements is a large and the accuracy of the measurement may be in question. Reading Location: [facility] CC: Dr. Alonzo Covarrubias MD; Dr. Anthony Henry MD ~ Hearing Consultant: Signed [facility] 08-25-2024 Evaluation note Diagnosis Onset Date Resolution Autoimmune hepatitis chronic August 25, 2024 9:40am Cirrhosis chronic August 25 9:40am Pancytopenia chronic August 25, 2 025 9:40am Portal hypertension chronic August 25, 2024 9:40am [facility] Work Phone: 1(444) 631-453906-13-2025 Evaluation note* Diagnosis Onset Date Resolution Status Admit Date Autoimmune hepatitis chronic August 25, 2024 9:40am Cirrhosis chronic August 25 9:40am Pancytopenia chronic August 25, 2 025 9:40am Portal hypertension chronic August 25, 2024 9:40am Diabetes mellitus acute September 262024 5:55pm General weakness acute September h2024 5:55pm Hypotension acute September 26 5:55pm Peripheral edema acute September 5:55pm Cirrhosis chronic September 26 5:55pm [facility] Work Phone: 1(670) 265-540804-28-2025 Evaluation + Plan noteExtracted from: Title:Clinical Document Author:CHANDLER YANCEY Date:07/10/24 [place] ADMISSION HISTORY AN D PHYSICIAL CHIEF COMPLAINT: HISTORY OF PRESENT ILLNESS: REVIEW OF SYSTEMS: ACTIVE PROBLEMS: (11) Ascites (8097018001) Autoimmune hepatitis (0329365183) Cirrhosis of liver (22471369) Esophageal varices (64326925) Essential thrombocythemia (0544766515) Fatigue (292657250) Fibrosis of liver (586158500) Hepatitis A immune (919302988) HTN (hypertension) (2255233690) Lupus (209606923) Osteoporosis (151264744) MEDICATIONS: Active Inpt Meds: None Active PRN Meds: None One Time Meds: None Active IV Meds: Sodium Chloride 0.9% intravenous solution 500 mL (0.9% NaCl 500 mL 500 mL) Start: 07/10/24 8:15:00 EDT, Rate: 20 mL/hr, 07/10/24 8:15:00 EDT ALLERGIES: (2) Levaquin sulfa drug FAMILY HISTORY: SOCIAL HISTORY: PHYSICAL EXAM: VITALS: KwnnvhBphtAJZnlmbVBNdG5PWV1PaacZa(kg) 07/10 08:0636.1--3682332HH 24 Hr Tmax: 36.1 at 07/10 08:06 36 Hr Tmax: 36.1 at 07/10 08:06 Vital Signs are the last 5 in the past 48 hours. Weights display the last 5 within 7 days. Initial Wt: No Data Available Current Wt: 07/10 55.5 kg 122 lb GENERAL: HEENT: CARDIOVASCULAR: RESPIRATORY: ABDOMEN: EXREMETIES: NEUROLOGICAL: PSYCHIATRIC: LABS: 36hr Labs 07/10 0816 Blood Glucose, Oekumjmuk09 Blood Glucose, Wcikjfasi48 DIAGNOSTICS: IMPRESSION: PLAN: History and Physical Update I have examined the patient; reviewed the H&P and there are no changes to the H&P unless noted below. [facility] 04-28-2025 Hospital Discharge instructions Patient Education 07/10/2024 09:49:25 Esophageal Varices Esophageal Varices Esophageal varices are enlarged veins in the part of the body that moves food from the mouth to thestomach (esophagus). They develop when extra blood is forced to flow through these veins because the blood's normal pathway is blocked. Without treatment, esophageal varices eventually break and bleed (hemorrhage), which can be life-threatening. What are the causes? This condition may be caused by: Scarring of the liver (cirrhosis) due to alcoholism. This is the most common cause. Long-term (chronic) liver disease. Severe heart failure. A blood clot in a vein that supplies the liver (portal vein). A disease that causes inflammation in the organs and other body areas (sarcoidosis). A parasitic infection that can cause liver damage (schistosomiasis). What are the signs or symptoms? Esophageal varices usually do not cause symptoms unless they start to bleed. Symptoms of bleeding esophageal varices include: Vomiting material that is bright red or that is black and looks like coffee grounds. Coughing up blood. Stools (feces) that look black and tarry. Dizziness or light-headedness. Low blood pressure. Loss of consciousness. How is this diagnosed? This condition is diagnosed with a procedure called endoscopy. During endoscopy, your health care provider uses a flexible tube with a small camera on the end of it (endoscope) to look down your throat and examine your esophagus. You may also have other tests, including: Imaging tests such as a CT scan or ultrasound. Blood tests. How is this treated? This condition may be treated with medicines or procedures that reduce pressure in the varices and reduce the risk of bleeding. Medicines are usually used for varices that are not bleeding. Procedures that may be done for bleeding varices include: Placing an elastic band around the varices to keep them from bleeding (variceal ligation). Replacing blood that you have lost due to bleeding. This may include getting a transfusion of bloodor parts of blood, such as platelets or clotting factors. You may be given antibiotic medicine to help prevent infection. Getting an injection that causes the varices to shrink and close (sclerotherapy). You may also be given medicines that tighten (constrict) blood vessels or change blood flow. Placing a tube into your esophagus and then passing a balloon through the tube and inflating the balloon (balloon tamponade). The balloon applies pressure to the bleeding veins to help stop the bleeding. Placing a small tube within the veins in the liver (transjugular intrahepatic portosystemic shunt, TIPS). This decreases blood flow and pressure in the esophageal varices. If other treatments do not work, you may need a liver transplant. Follow these instructions at home: Take ckas-kac-uolyigv and prescription medicines only as told by your health care provider. If you were prescribed an antibiotic medicine, take it as told by your health care provider. Do notstop taking the antibiotic even if you start to feel better. Do not take any NSAIDs (such as aspirin or ibuprofen) before first getting approval from your health care provider. Do not drink alcohol. Return to your normal activities as told by your health care provider. Ask your health care provider what activities are safe for you. Keep all follow-up visits as told by your health care provider. This is important. Contact a health care provider if: You have abdominal pain. You are unable to eat or drink. Get help right away if: You have blood in your stool or vomit. You have stools that look black or tarry. You have chest pain. You feel dizzy or have low blood pressure. You lose consciousness. These symptoms may represent a serious problem that is an emergency. Do not wait to see if the symptoms will go away. Get medical help right away. Call your local emergency services (911 in the [place] Do not drive yourself to the hospital. Summary Esophageal varices are enlarged veins in the esophagus, the part of your body that moves food from your mouth to your stomach. Without treatment, esophageal varices eventually break and bleed (hemorrhage), which can be life-threatening. Esophageal varices usually do not cause symptoms unless they start to bleed. Keep all follow-up visits as told by your health care provider. This is important. This information is not intended to replace advice given to you by your health care provider. Make sure you discuss any questions you have with your health care provider. Document Released: 05/21/2004 Document Revised: 02/11/2018 Document Reviewed: 12/01/2017 [employer] Patient Education 2020 [employer]. 07/10/2024 09:48:59 Esophageal Variceal Ligation, Care After, Eysj-uz-Hpzu Esophageal Variceal Ligation, Care After This sheet gives you information about how to care for yourself after your procedure. Your doctor may also give you more specific instructions. If you have problems or questions, contact your doctor. What can I expect after the procedure? After the procedure, it is common to have: Bleeding. Pain and soreness in your chest area. Trouble swallowing. Follow these instructions at home: Eating and drinking Follow instructions from your doctor about what you can eat or drink. You will have limits on what you can eat for the first 1 2 days after your procedure. You will start with a liquid diet. Later, you will start to eat soft foods. Do not drink alcohol. Activity Return to your normal activities as told by your doctor. Ask your doctor what activities are safe for you. Do not lift anything that is heavier than 10 lb (4.5 kg), or the limit that you are told, until your doctor says that it is safe. Do not drive or use heavy machinery while taking prescription pain medicine. General instructions Take hqle-ajd-jmlalcf and prescription medicines only as told by your doctor. Do not use any products that contain nicotine or tobacco, such as cigarettes and e-cigarettes. If you need help quitting, ask your doctor. Keep all follow-up visits as told by your doctor. This is important. Contact a doctor if: You have chest pain that lasts for more than 3 days after you go home. You have trouble swallowing that lasts for more than 3 days after you go home. You have a fever or chills. Get help right away if: You have bleeding from your throat. You have bleeding from your bottom (rectum). You throw up (vomit) bright red blood. You are unable to swallow. You are short of breath. You have very bad chest pain or back pain. Summary After the procedure, it is common to have pain, bleeding, and trouble swallowing. Follow all your home care instructions. Stay on a liquid or soft diet until your doctor says that you can go back to your normal diet. Contact a doctor if you have chills, fever, chest pain, or trouble swallowing. Get help right away if you have bleeding, are unable to swallow, or have very bad chest or back pain. This information is not intended to replace advice given to you by your health care provider. Make sure you discuss any questions you have with your health care provider. Document Released: 06/07/2018 Document Revised: 06/07/2018 Document Reviewed: 06/07/2018 [employer] Patient Education 2020 [employer]. 07/10/2024 09:48:10 Esophagogastroduodenoscopy, Care After (29023) Esophagogastroduodenoscopy, Care After Refer to this sheet in the next few weeks. These instructions provide you with information about caring for yourself after your procedure. Your health care provider may also give you more specific instructions. Your treatment has been planned according to current medical practices, but problems sometimes occur. Call your health care provider if you have any problems or questions after your procedure. What can I expect after the procedure? After the procedure, it is common to have: A sore throat. Nausea. Bloating. Dizziness. Fatigue. Follow these instructions at home: Do not eat or drink anything until the numbing medicine (local anesthetic) has worn off and your gag reflex has returned. You will know that the local anesthetic has worn off when you can swallow comfortably. Do not drive for 24 hours if you received a medicine to help you relax (sedative). If your health care provider took a tissue sample for testing during the procedure, make sure to get your test results. This is your responsibility. Ask your health care provider or the department performing the test when your results will be ready. Keep all follow-up visits as told by your health care provider. This is important. Contact a health care provider if: You cannot stop coughing. You are not urinating. You are urinating less than usual. Get help right away if: You have trouble swallowing. You cannot eat or drink. You have throat or chest pain that gets worse. You are dizzy or light-headed. You faint. You have nausea or vomiting. You have chills. You have a fever. You have severe abdominal pain. You have black, tarry, or bloody stools. This information is not intended to replace advice given to you by your health care provider. Make sure you discuss any questions you have with your health care provider. Document Released: 02/15/2013 Document Revised: 08/06/2016 Document Reviewed: 01/23/2016 [employer] Interactive Patient Education 2019 [employer]. 07/10/2024 09:47:54 Monitored Anesthesia Care, Care After Monitored Anesthesia [...] before eating solid foods. General instructions Take wlfc-bxz-ixxpmzg and prescription medicines only as told by [...] 06/21/2016 Document Revised: 05/30/2018 Document Reviewed: 06/21/2016 [employer] Patient Education [employer] Follow Up Care 06/20/2024 08:04:46 With:CHANDLER YANCEY MD Address: [address] [phone] When: Unknown Comments:CALL DR YANCEY WITH ANY QUESTIONS OR CONCERNS. GO TO THE EMERGENCY ROOM WITH ANY URGENT CONCERNS. SEVERAL BANDINGS WERE DONE. [facility] 04-28-2025 Note Discharge Instructions Thank you for allowing [facility] to assist you with your healthcare needs. The following is importantdischarge information regarding your hospital visit. Your Care Team DARRELL COVARRUBIAS MD, DR. Your Diagnosis Diabetes Raynaud disease What to do next Follow Up Appointments Follow Up with CHANDLER YANCEY MD Where:[address] [phone] Additional Information: CALL DR YANCEY WITH ANY QUESTIONS OR CONCERNS. GO TO THE EMERGENCY ROOM WITH ANY URGENT CONCERNS. SEVERAL BANDINGS WERE DONE. The Following Activity and Diet Have Been Ordered for You Discharge Activity - Ordered -- NO activity restrictions, 07/10/24 9:44:00 EDT Discharge Diet - Ordered -- Follow the post-operative/post-procedure diet instructions provided by your physician's office.,07/10/24 9:44:00 EDT The Following Equipment Has Been Ordered for You Discharge Home Equipment Discharge Wound Care - Ordered -- Follow the post-operative/post-procedure wound care instructions provided by your physician's office., 07/10/24 9:44:00 EDT Allergies Levaquin sulfa drug Medications Please ask your primary [...] Once a day before a meal Unchanged pantoprazole (pantoprazole 40 mg oral enteric coated tablet) 1 tab(s) by mouth Two (2) times a day Unchanged predniSONE (Deltasone 5 mg tab (TAPER)) 1 tab(s) by mouth Once a day Unchanged spironolactone (spironolactone 100 mg oral tablet) 1 tab(s) by mouth Once a day Please take this list to your next doctor s visit. Bring all medications you take, including over the counter medications, herbals and other supplements with you to your doctor s visit. Patients and families are reminded to discard old lists and to update any records with all medication providers or retail pharmacies. Education Materials Esophageal Varices Esophageal varices are enlarged veins in the part of the body that moves food from the mouth to thestomach (esophagus). They develop when extra blood is forced to flow through these veins because the blood's normal pathway is blocked. Without treatment, esophageal varices eventually break and bleed (hemorrhage), which can be life-threatening. What are the causes? This condition may be caused by: Scarring of the liver (cirrhosis) due to alcoholism. This is the most common cause. Long-term (chronic) liver disease. Severe heart failure. A blood clot in a vein that supplies the liver (portal vein). A disease that causes inflammation in the organs and other body areas (sarcoidosis). A parasitic infection that can cause liver damage (schistosomiasis). What are the signs or symptoms? Esophageal varices usually do not cause symptoms unless they start to bleed. Symptoms of bleeding esophageal varices include: Vomiting material that is bright red or that is black and looks like coffee grounds. Coughing up blood. Stools (feces) that look black and tarry. Dizziness or light-headedness. Low blood pressure. Loss of consciousness. How is this diagnosed? This condition is diagnosed with a procedure called endoscopy. During endoscopy, your health care provider uses a flexible tube with a small camera on the end of it (endoscope) to look down your throat and examine your esophagus. You may also have other tests, including: Imaging tests such as a CT scan or ultrasound. Blood tests. How is this treated? This condition may be treated with medicines or procedures that reduce pressure in the varices and reduce the risk of bleeding. Medicines are usually used for varices that are not bleeding. Procedures that may be done for bleeding varices include: Placing an elastic band around the varices to keep them from bleeding (variceal ligation). Replacing blood that you have lost due to bleeding. This may include getting a transfusion of bloodor parts of blood, such as platelets or clotting factors. You may be given antibiotic medicine to help prevent infection. Getting an injection that causes the varices to shrink and close (sclerotherapy). You may also be given medicines that tighten (constrict) blood vessels or change blood flow. Placing a tube into your esophagus and then passing a balloon through the tube and inflating the balloon (balloon tamponade). The balloon applies pressure to the bleeding veins to help stop the bleeding. Placing a small tube within the veins in the liver (transjugular intrahepatic portosystemic shunt, TIPS). This decreases blood flow and pressure in the esophageal varices. If other treatments do not work, you may need a liver transplant. Follow these instructions at home: Take ghst-udf-ynjabeg and prescription medicines only as told by your health care provider. If you were prescribed an antibiotic medicine, take it as told by your health care provider. Do notstop taking the antibiotic even if you start to feel better. Do not take any NSAIDs (such as aspirin or ibuprofen) before first getting approval from your health care provider. Do not drink alcohol. Return to your normal activities as told by your health care provider. Ask your health care provider what activities are safe for you. Keep all follow-up visits as told by your health care provider. This is important. Contact a health care provider if: You have abdominal pain. You are unable to eat or drink. Get help right away if: You have blood in your stool or vomit. You have stools that look black or tarry. You have chest pain. You feel dizzy or have low blood pressure. You lose consciousness. These symptoms may represent a serious problem that is an emergency. Do not wait to see if the symptoms will go away. Get medical help right away. Call your local emergency services (911 in the [place] Do not drive yourself to the hospital. Summary Esophageal varices are enlarged veins in the esophagus, the part of your body that moves food from your mouth to your stomach. Without treatment, esophageal varices eventually break and bleed (hemorrhage), which can be life-threatening. Esophageal varices usually do not cause symptoms unless they start to bleed. Keep all follow-up visits as told by your health care provider. This is important. This information is not intended to replace advice given to you by your health care provider. Make sure you discuss any questions you have with your health care provider. Document Released: 05/21/2004 Document Revised: 02/11/2018 Document Reviewed: 12/01/2017 [employer] Patient Education 2020 [employer] Esophageal Variceal Ligation, Care After This sheet gives you information about how to care for yourself after your procedure. Your doctor may also give you more specific instructions. If you have problems or questions, contact your doctor. What can I expect after the procedure? After the procedure, it is common to have: Bleeding. Pain and soreness in your chest area. Trouble swallowing. Follow these instructions at home: Eating and drinking Follow instructions from your doctor about what you can eat or drink. You will have limits on what you can eat for the first 1 2 days after your procedure. You will start with a liquid diet. Later, you will start to eat soft foods. Do not drink alcohol. Activity Return to your normal activities as told by your doctor. Ask your doctor what activities are safe for you. Do not lift anything that is heavier than 10 lb (4.5 kg), or the limit that you are told, until your doctor says that it is safe. Do not drive or use heavy machinery while taking prescription pain medicine. General instructions Take zqoy-phs-evqlhsg and prescription medicines only as told by your doctor. Do not use any products that contain nicotine or tobacco, such as cigarettes and e-cigarettes. If you need help quitting, ask your doctor. Keep all follow-up visits as told by your doctor. This is important. Contact a doctor if: You have chest pain that lasts for more than 3 days after you go home. You have trouble swallowing that lasts for more than 3 days after you go home. You have a fever or chills. Get help right away if: You have bleeding from your throat. You have bleeding from your bottom (rectum). You throw up (vomit) bright red blood. You are unable to swallow. You are short of breath. You have very bad chest pain or back pain. Summary After the procedure, it is common to have pain, bleeding, and trouble swallowing. Follow all your home care instructions. Stay on a liquid or soft diet until your doctor says that you can go back to your normal diet. Contact a doctor if you have chills, fever, chest pain, or trouble swallowing. Get help right away if you have bleeding, are unable to swallow, or have very bad chest or back pain. This information is not intended to replace advice given to you by your health care provider. Make sure you discuss any questions you have with your health care provider. Document Released: 06/07/2018 Document Revised: 06/07/2018 Document Reviewed: 06/07/2018 [employer] Patient Education 2020 [employer] Esophagogastroduodenoscopy, Care After Refer to this sheet in the next few weeks. These instructions provide you with information about caring for yourself after your procedure. Your health care provider may also give you more specific instructions. Your treatment has been planned according to current medical practices, but problems sometimes occur. Call your health care provider if you have any problems or questions after your procedure. What can I expect after the procedure? After the procedure, it is common to have: A sore throat. Nausea. Bloating. Dizziness. Fatigue. Follow these instructions at home: Do not eat or drink anything until the numbing medicine (local anesthetic) has worn off and your gag reflex has returned. You will know that the local anesthetic has worn off when you can swallow comfortably. Do not drive for 24 hours if you received a medicine to help you relax (sedative). If your health care provider took a tissue sample for testing during the procedure, make sure to get your test results. This is your responsibility. Ask your health care provider or the department performing the test when your results will be ready. Keep all follow-up visits as told by your health care provider. This is important. Contact a health care provider if: You cannot stop coughing. You are not urinating. You are urinating less than usual. Get help right away if: You have trouble swallowing. You cannot eat or drink. You have throat or chest pain that gets worse. You are dizzy or light-headed. You faint. You have nausea or vomiting. You have chills. You have a fever. You have severe abdominal pain. You have black, tarry, or bloody stools. This information is not intended to replace advice given to you by your health care provider. Make sure you discuss any questions you have with your health care provider. Document Released: 02/15/2013 Document Revised: 08/06/2016 Document Reviewed: 01/23/2016 [employer] Interactive Patient Education 2019 [employer]. Monitored Anesthesia Care, Care After These instructions [...] before eating solid foods. General instructions Take dlxo-nkw-deednig and prescription medicines only as told by [...] 06/21/2016 Document Revised: 05/30/2018 Document Reviewed: 06/21/2016 [employer] Patient Education 2020 [employer] Additional Information VACCINATE! IT SAVES LIVES! Members of the community who have not yet received the COVID-19 vaccine and would like to receive it can visit one of [facility] vaccine clinics. There are many vaccine clinic locations within the [facility]. For locations and available times, please visit https://gettheshot.coronavirus.[place].gov/. It is important to note that some COVID mobile vaccine clinics are held outdoors and may be canceled in rainy or stormy conditions. To learn more about pediatric vaccinations (ages 5-11), we invite you to visit the [facility] webpage. [email or web address] learn more about the COVID-19 vaccine, we invite you to visit the CDC website for a list of frequently asked questions.https://www.cdc.gov/coronavirus/2019-ncov/vaccines/faq.html [facility] Patient Portal Access Instructions: Stay connected with your healthcare team and access your personal medical information anytime with the [facility] Patient Portal. Please follow the directions below to create your [facility] account: 1.Access the email account you provided upon registration to the hospital/physician office.2.Look for an invitation email from [facility].3.Open the email and access the invitation link: AcceptInvitation to [facility].4.Fill in the required barrios to create your account. To access your account, visit [email or web address]. Click the blue button labeled Access Patient Portal and then log in with the username and password that you created in the steps above. You will be able to view your test results, lab results, a summary of your visits, upcoming appointments and more. There is also a convenient messaging option where you can send secure messages to your [employer]. In addition, you will have the ability to download any documents or summaries to your computer and/or send the information securely to a physician. Remember that your healthcare information is confidential, so carefully consider who you will allowto register on the [facility] Patient Portal for access to your information. You can also access the [facility] Patient Portal on the [facility]ita. Simply click on Patient Portal and then log into your account. If you would like to receive a full copy of your medical records, please contact the [facility] Medical Records Department by calling [phone], Wednesday through Wednesday between 8 a.m. and 4:30 p.m. HOW TO SAFELY DISPOSE OF PRESCRIPTION MEDICATIONS [...] Call your local pharmacy or go to http://bit.ly/5Y2Lt3z to find one close to you.3.Make use of household items: Use cat litter or old coffee grounds to dispose medications if other options arenot available. Mix your drugs with these household products, seal them in an airtight container andthrow it into the garbage. Call [facility]: [phone] to be sure your drugs can be [...] a CHART COPY. Signatures Patient Education Materials Esophageal Varices Esophageal Variceal Ligation, Care After, Ecqd-ux-Ohda Esophagogastroduodenoscopy, Care After (66829) Monitored Anesthesia Care, Care After Medication Leaflets My discharge plan and instructions have been reviewed and explained to me and IKARY JUDITH A understand my current condition and have read and understand these discharge instructions. I have received a written copy of the plan/instructions. If I have questions, I am aware that I should contactmy doctor. 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 Upper endoscope was passed under direct visualization down into the esophagus. The Z- line was 33 cm from the incisors there were varices grade 2-3 in the distal esophagus. The stomach was easily insufflated there was hyperemia..Duodenum was unremarkable. Retroflexion performed in the stomach revealed no evidence of gastric varices. The endoscope was withdrawn from the esophagus and the speed band super view was attached to the endoscope. The scope was reintroduced back down to the distal esophagus at 29 cm was a prominent varix and this was sucked up into the scope and a band was applied. Lateral to this was another varix and this was sucked up into the scope and a band was applied. Approximately 23 cm were 2 other varices and these were both bands were applied. The point it was felt this was sufficient for today's session was withdrawn and the patient tolerated the procedure well. Post-Procedure Exam EGD with banding x 4 applied Findings Esophageal varices Complications None apparent Total Time Approximately 25 minutes Assessment/Plan Diabetes Raynaud disease Orders: Sodium Chloride 0.9% intravenous solution 500 mL(0.9% NaCl 500 mL 500 mL), 500 mL, Intravenous Bedrest, 07/10/24 9:44:00 EDT, Strict, continuous, Constant order, Lying on side until alert or as ordered Bedrest, 07/10/24 9:44:00 EDT, Strict, continuous, Constant order, Lying on side until alert or as ordered Call Parameters, 07/10/24 9:44:00 EDT, Notify for vomiting, severe pain, signs of bleeding, severe abdominal pain, distention or rigidity, Constant order Communication Order (scheduled), 07/10/24 8:15:00 EDT, Once, 07/10/24 8:15:00 EDT, Fasting Blood Sugar priot to procedure of patient is diabetic Communication Order (scheduled), 07/10/24 8:15:00 EDT, Once, 07/10/24 8:15:00 EDT, Pathology TissueRequest Communication Order (scheduled), 07/10/24 8:15:00 EDT, Once, 07/10/24 8:15:00 EDT, Urine Test or waiver for women of child bearing age Consult to Anesthesia, 07/10/24 8:15:00 EDT, *Other (specify in special instructions), Provide Anesthesia during Procedure Diet Order, 07/10/24 9:44:00 EDT, Start Meal: Next meal, Clear Liquid Diet, Post exam or after gag reflex returns if EGD, Constant Order, : No, per patient, : No Discharge, 07/10/24 8:15:00 EDT, Discharged to: Home, when able to ambulate and after being seen byphysician Discharge Activity, NO activity restrictions, 07/10/24 9:44:00 EDT Discharge Diet, Follow the post-operative/post-procedure diet instructions provided by your physician's office., 07/10/24 9:44:00 EDT Discharge Wound Care, Follow the post-operative/post-procedure wound care instructions provided by your physician's office., 07/10/24 9:44:00 EDT IV Catheter Insertion/Care(Peripheral IV Insertion/Care), 07/10/24 8:15:00 EDT, IV Care: q4h, Rotate when clinically indicated & q7day drsg change Post Procedure Assessment, 07/10/24 9:44:00 EDT, Stop Date 07/10/24 9:44:00 EDT, [facility] in [facility] Recovery Room until Anthony Score of 12 or Preprocedure Sign Consent, 07/10/24 8:15:00 EDT, Once, For EGD Vital Signs, 07/10/24 9:44:00 EDT, q15min, 1 hour(s), 07/10/24 10:30:00 EDT Vital Signs, 07/10/24 9:44:00 EDT, q30min, 1 hour(s), 07/10/24 10:30:00 EDT Vital Signs PRN, 07/10/24 9:44:00 EDT, PRN order Follow Up/Recommendation Repeat banding in 2 to 3 weeks. Digitally Signed by CHANDLER YANCEY MD on 07/10/2024 09:50 AM [facility]04-28-2025 Anesthesiology Consult note Patient: VANNESSA PRESTON Age: 69 years Sex: Female : 1955 Associated Diagnoses: None Author: ZOE PRABHAKAR APRN-JOURNEYMAN PIPE WELDER Assessment Postanesthesia assessment Vitals: Vital signs from flowsheet : Vital Signs 07/10/2024 9:30 EDT Heart Rate Monitored 97 bpm bpm Respiratory Rate - Anes 3 br/min br/min Systolic Blood Pressure Non-Invasive 82 mmHg mmHg Diastolic Blood Pressure Non-Invasive 53 mmHg mmHg 07/10/2024 9:25 EDT Heart Rate Monitored 93 bpm bpm Respiratory Rate - Anes 30 br/min br/min Systolic Blood Pressure Non-Invasive 146 mmHg mmHg Diastolic Blood Pressure Non-Invasive 72 mmHg mmHg 07/10/2024 9:21 EDT Systolic Blood Pressure Non-Invasive 147 mmHg mmHg Diastolic Blood Pressure Non-Invasive 79 mmHg mmHg 07/10/2024 8:06 EDT Temperature Temporal Artery 36.1 DegC Apical Heart Rate 78 bpm Respiratory Rate 19 br/min Systolic Blood Pressure Non-Invasive 125 mmHg Diastolic Blood Pressure Non-Invasive 78 mmHg . Mental status: alert & oriented x 4. Respiratory function: lungs are clear to auscultation. Respiratory support: none. CV function: Normal rate. Cardiovascular support: none. Pain. Nausea status: see nursing documentation of medications. Postoperative hydration status: within normal limits. Digitally Signed by ZOE PRABHAKAR APRN-JOURNEYMAN PIPE WELDER on 07/10/2024 09:41 AM [facility]04-28-2025 Note [facility] ADMISSION HISTORY AND PHYSICIAL CHIEF COMPLAINT: HISTORY OF PRESENT ILLNESS: REVIEW OF SYSTEMS: ACTIVE PROBLEMS: (11) Ascites ([id number]) Autoimmune hepatitis (7319851445) Cirrhosis of liver (06933441) Esophageal varices (00113281) Essential thrombocythemia (3393020319) Fatigue (739101190) Fibrosis of liver (014828622) Hepatitis A immune (093571102) HTN (hypertension) (9640899042) Lupus (485251866) Osteoporosis (267687357) MEDICATIONS: Active Inpt Meds: None Active PRN Meds: None One Time Meds: None Active IV Meds: Sodium Chloride 0.9% intravenous solution 500 mL (0.9% NaCl 500 mL 500 mL) Start: 07/10/24 8:15:00 EDT, Rate: 20 mL/hr, 07/10/24 8:15:00 EDT ALLERGIES: (2) Levaquin sulfa drug FAMILY HISTORY: SOCIAL HISTORY: PHYSICAL EXAM: VITALS: [id number](kg) 07/10 08:0636.1--[id number] 24 Hr Tmax: 36.1 at 07/10 08:06 36 Hr Tmax: 36.1 at 07/10 08:06 Vital Signs are the last 5 in the past 48 hours. Weights display the last 5 within 7 days. Initial Wt: No Data Available Current Wt: 07/10 55.5 kg 122 lb GENERAL: HEENT: CARDIOVASCULAR: RESPIRATORY: ABDOMEN: EXREMETIES: NEUROLOGICAL: PSYCHIATRIC: LABS: 36hr Labs 07/10 0816 Blood Glucose, [id number] Blood Glucose, [id number] DIAGNOSTICS: IMPRESSION: PLAN: History and Physical Update I have examined the patient; reviewed the H&P and there are no changes to the H&P unless noted below. Digitally Signed by CHANDLER YANCEY MD on 07/10/2024 09:26 AM [facility]04-28-2025 Anesthesiology Consult note Patient: VANNESSA PRESTON Age: 69 years Sex: Female : 1955 Associated Diagnoses: None Author: ZOE PRABHAKAR APRN-JOURNEYMAN PIPE WELDER Preoperative Information Time of last food or liquid consumption: 07/09/2024 23:00:00 Anesthesia history Patient's history: negative. Family's history: negative. Review of Systems Ear/Nose/Mouth/Throat: Negative except as documented in history of present illness. Respiratory: Negative except as documented in history of present illness. Cardiovascular: Negative except as documented in history of present illness. Gastrointestinal: Negative except as documented in history of present illness. Genitourinary: Negative except as documented in history of present illness. Endocrine: Negative except as documented in history of present illness. Musculoskeletal: Negative except as documented in history of present illness. Integumentary: Negative except as documented in history of present illness. Neurologic: Negative except as documented in history of present illness. Health Status Allergies: Allergic Reactions (Selected) Severity Not Documented Levaquin- No reactions were documented. Sulfa drug- No reactions were documented., Allergies (2) ActiveSeverityReaction LevaquinNone Documented sulfa drugNone Documented Current medications: (Selected) Inpatient Medications Ordered 0.9% NaCl 500 mL 500 mL: 20 mL/hr, Intravenous Documented Medications Documented Deltasone 5 [...] mcg, 1 tab(s), Oral, qDayAC, 0 Refill(s) pantoprazole 40 mg oral enteric coated tablet: 40 mg, 1 tab(s), Oral, BID, 60 tab(s), 0 Refill(s) spironolactone 100 mg oral tablet: 100 mg, 1 tab(s), Oral, qDay, 30 tab(s), 0 Refill(s), Medications (1) Active Scheduled: (0) Continuous: (1) Sodium Chloride 0.9% intravenous solution 500 mL 500 mL, Intravenous, 20 mL/hr PRN: (0) Problem list: No problem items selected or recorded., Active Problems (11) Ascites Autoimmune hepatitis Cirrhosis of liver Esophageal varices Essential thrombocythemia Fatigue Fibrosis of liver Hepatitis A immune HTN (hypertension) Lupus Osteoporosis Histories Past Medical History: No active or resolved past medical history items have been selected or recorded. Family History: Diabetes mellitus type 2 Mother CAD - Coronary artery disease Mother Procedure history: CE - Cataract extraction ([id number]). section ([id number]). Comments: 07/10/2024 8:10 EDT - Angeles Gutierrez RN x2 Esophagogastroscopy ([id number]). Tooth extraction, multiple ([id number]). Social History: Social & Psychosocial Habits Alcohol 07/10/2024 Use: Past Tobacco 07/10/2024 Tobacco Use: Former smoker, quit more Home/Environment 07/10/2024 Living situation: Home/Independent Domestic Concerns None Nutrition/Health 07/10/2024 Type of diet: Low sodium Caffeine intake amount: one serving daily Appetite Good Eating Difficulties None Physical Examination Vital Signs 07/10/2024 8:06 EDT Temperature Temporal Artery 36.1 DegC Apical Heart Rate 78 bpm Respiratory Rate 19 br/min Systolic Blood Pressure Non-Invasive 125 mmHg Diastolic Blood Pressure Non-Invasive 78 mmHg Vital Signs (last 24 hrs) Last Charted Temp Vysghnea44.1 DegC (JUL 10 08:06) Heart Rate Cgcjay90 bpm (JUL 10 08:06) KZM107 mmHg (JUL 10 08:06) DBP78 mmHg (JUL 10 08:06) Measurements from flowsheet : Measurements 07/10/2024 8:16 EDT Height 152.40 cm Current Weight 55.45 kg [place] Body Weight 45.50 kg 07/10/2024 8:06 EDT Height 147.3 cm [place] Body Weight 40.88 kg General: Alert and oriented. Airway: Normal neck range of motion. Mallampati classification: II (soft palate, fauces, uvula visible). Head: Normocephalic. Dentition Evaluation: Intact, Own teeth. Neck: Full range of motion. Respiratory: Lungs are clear to auscultation. Cardiovascular: Normal rate. Heart Sounds: Normal. Gastrointestinal: Soft. Musculoskeletal Normal range of motion. Integumentary: Intact, Warm, Dry. Neurologic: Alert, Oriented. Review / Management Results review: No qualifying data available , Lab results 07/10/2024 8:56 EDT Continuous IV Infusions n.s. Wrist Left 24 gauge Peripheral IV Activity: Insert new site Peripheral IV Site Condition: No complications Peripheral IV Number of Attempts: 2 07/10/2024 8:55 EDT Sodium Chloride 0.9% Begin Bag 500 mL mL 07/10/2024 8:16 EDT Blood Glucose, Capillary 89 mg/dL Height 152.40 cm Current Weight 55.45 kg [place] Body Weight 45.50 kg Respirations Unlabored Respiratory Pattern Regular Cough None Abdomen Description Non-distended, Soft Urinary Elimination Voiding, no difficulties Skin Description [place], Normal for ethnicity, Dry Skin Temperature Warm Skin Moisture General Dry IV Present Present Neurological Symptoms Patient denies Extremity Movement Equal Characteristics of Speech Clear Level of Consciousness Alert Strength All Extremities Strong Sensation All Extremities Intact Affect/Behavior Appropriate Orientation Oriented x 4 Allergies Yes Anesthesia Extension Set Applied Yes Hub Associate On Yes Consent Form Signed Yes Patient Dressed In Hospital gown History & Physical Update On Chart Yes History & Physical On Chart Yes Obstructive Sleep Apnea Assess Completed Yes Orientation Assessment Oriented x 4 Positioning Repositions self Activity Status ADL Awake NPO Status Maintained Standard Safety ID band on, Allergy Band on, Call device within reach, Bed in low position, Wheels locked, Visitor at bedside, Safety level maintained Allergy Band on and Verified Yes Patient ID Band on and Verified Yes Implants Verified Yes Pacemaker/AICD Verified Yes Last Fluid Intake 07/09/2024 22:00 Last Food Intake 07/09/2024 20:00 Last Void 07/10/2024 8:18 07/10/2024 8:13 EDT Designated Person #1 We May Share RADHA Selby [phone] Designated Person #1 Relationship Spouse Privacy Restrictions Requested None Status No, per patient Sensory Deficits None Sleep Apnea Snore No Sleep Apnea Tired No Sleep Apnea Obstruction No Sleep Apnea Pressure Yes Sleep Apnea BMI No Sleep Apnea Age Yes Sleep Apnea Neck No Sleep Apnea Gender No Sleep Apnea Score 2 Diagnosed With Sleep Apnea No Advanced Directives Unable to obtain Infectious Disease Symptoms Patient states no symptoms [...] Learning None evident Teaching Method Explanation Preferred Spoken Language Icelandic Preferred Written Language Icelandic Teaching Evaluation No further teaching needed Safety Brochure Information Reviewed Unable to complete [facility] Video Viewed No Patient's Current Physicians Dr Covarrubias History of Malignant Hyperthermia No Discharge To, Anticipated Home independently Prev Test Positive/Diagnosis w/COVID-19 No Current Quarantine/Isolated any Illness No Any Contact with Sick Animals/Birds No Traveled Anywhere in Last 30 Days No Lost Weight Unintentionally Recently No Eat Poorly Due to Decreased Appetite No Total MST Score 0 No Personal Devices, Patient Valuables Glasses Anesthesia/Transfusions Prior anesthesia Admission Note-Nursing Same Day Patient History 07/10/2024 8:06 EDT Designated Person #1 We May Share RADHA Selby [phone] Designated Person #1 Relationship Spouse Height 147.3 cm [place] Body Weight 40.88 kg Temperature Temporal Artery 36.1 DegC Apical Heart Rate 78 bpm Respiratory Rate 19 br/min Systolic Blood Pressure Non-Invasive 125 mmHg Diastolic Blood Pressure Non-Invasive 78 mmHg Heart Rhythm Regular Oxygen Therapy Room air Oxygen Saturation 100 % Status No, per patient Sensory Deficits None [...] > 3 Weeks No Weight Loss No Individuals Taught Patient, Spouse Learning Readiness Willing to learn Barriers to Learning None evident Teaching Method Explanation Preferred Spoken Language Icelandic Preferred Written Language Icelandic Patient Care Education Plan of care Patient's Current Physicians Dr Covarrubias Discharge To, Anticipated Home independently Prev Test Positive/Diagnosis w/COVID-19 No Current Quarantine/Isolated any Illness No Any Contact with Sick Animals/Birds No Traveled Anywhere in Last 30 Days No No Personal Devices, Patient Valuables Glasses Admission Note-Nursing Procedure/Therapy Intake . Assessment and Plan English Society of Anesthesiologists (ASA) physical status classification: Class III. Anesthetic Preoperative Plan Premedication: intravenous. Anesthetic technique: MAC. Induction: intravenously. Maintenance airway: Mask. Risks discussed: nausea, vomiting, headache, sore throat, dental injury, hypotension, allergic reaction, serious complications. Informed consent: signed by patient. Digitally Signed by ZOE PRABHAKAR on 07/10/2024 09:15 AM [facility]08-27-2024 Telephone encounter Note* Telephone Encounter - Mely Wadsworth LPN - 11/09/2023 3:51 PM EDT labs received and given to Dr Royal to review. Mely Wadsworth LPN [facility]08-27-2024 Miscellaneous Notes* Telephone Encounter - Mely Wadsworth LPN - 11/09/2023 3:51 PM EDT labs received and given to Dr Royal to review. Mely Wadsworth LPN * Telephone Encounter - Mely Wadsworth LPN - 11/09/2023 1:47 PM EDT Haven't seen anything from that office, yesterday or today. Nothing in Care Everywhere. Pt notified. Mely Wadsworth LPN * Telephone Encounter - Batsheva Gray - 11/09/2023 1:45 PM EDT Patient called stating Dr. Pacheco was faxing labs to our office yesterday and would like patient to follow up with Dr. Royal [facility] Tele[facility] encounter Note * Telephone Encounter - Mely Wadsworth LPN - 11/09/2023 1:47 PM EDT Haven't seen anything from that office, yesterday or today. Nothing in Care Everywhere. Pt notified. Mely Wadsworth LPN [address]27-2024 Telephone encounter Note* Telephone Encounter - Batsheva Gray - 11/09/2023 1:45 PM EDT Patient called stating Dr. Pacheco was faxing labs to our office yesterday and would like patient to follow up with Dr. Royal [facility] Work Phone: 1(704) 263-393907-22-2024 History of Present illness Narrative* Saritha Coles, - 10/04/2023 9:20 AM EDT Chief Complaint: Medicare Wellness Exam/Comprehensive Problem Focused Follow Up and Physical Exam HPI: Patient is here today for Mwv. Active Problem List Patient Active Problem List Diagnosis Idiopathic esophageal varices with bleeding (Multi) Autoimmune hepatitis (Multi) Cirrhosis (Multi) Systemic lupus erythematosus, unspecified (Multi) Rheumatoid arthritis involving both shoulders with positive rheumatoid factor (Multi) Comprehensive Medical/Surgical/Social/Family History Past Medical History: Diagnosis Date Autoimmune hepatitis (Multi) 08/11/2021 Autoimmune hepatitis Esophageal varices without bleeding (Multi) Varices, esophageal Personal history of other diseases of the circulatory system History of hypertension Personal history of other diseases of the musculoskeletal system and connective tissue History of osteoarthritis Personal history of other diseases of the musculoskeletal system and connective tissue History of arthritis Personal history of other specified conditions History of ascites Personal history of other specified conditions History of fatigue Systemic lupus erythematosus, unspecified (Multi) Lupus Unspecified cirrhosis of liver (Multi) 08/11/2021 Cirrhosis Past Surgical History: Procedure Laterality Date OTHER SURGICAL HISTORY 03/29/2020 section OTHER SURGICAL HISTORY 03/29/2020 Cataract surgery Social History Tobacco Use Smoking status: Former Current packs/day: 0.00 Types: Cigarettes Quit date: 2008 Years since quittin.5 Smokeless tobacco: Never Vaping Use Vaping status: Never Used Substance Use Topics Alcohol use: Not Currently Drug use: Never Family History Problem Relation Name Age of Onset Hypertension Other Heart disease Other Diabetes Other Stroke Other Dementia Other Allergies and Medications Sulfa (sulfonamide antibiotics) Current Outpatient Medications on File Prior to Visit Medication Sig Dispense Refill spironolactone (Aldactone) 100 mg tablet Take 1 tablet (100 mg) by mouth early in the morning.. azaTHIOprine (Imuran) 50 mg tablet Take 1.5 tablets (75 mg) by mouth once daily. carvedilol (Coreg) 6.25 mg tablet Take 1 tablet (6.25 mg) by mouth 2 times a day with meals. ezetimibe (Zetia) 10 mg tablet Take 1 tablet (10 mg) by mouth once daily. 90 tablet 3 glipiZIDE XL (Glucotrol XL) 2.5 mg 24 hr tablet Take 1 tablet (2.5 mg) by mouth once daily. 90 tablet 3 pantoprazole (ProtoNix) 40 mg EC tablet Take 1 tablet (40 mg) by mouth once daily in the morning. Take before meals. predniSONE (Deltasone) 5 mg tablet Take 1 tablet (5 mg) by mouth once daily. [DISCONTINUED] spironolactone (Aldactone) 25 mg tablet Take 1 tablet (25 mg) by mouth once daily. No current facility-administered medications on file prior to visit. Medicare Wellness Questionnaire How have you been on Medicare less than a year ? No Have you had a Medicare Wellness exam before ? Yes Have you had any surgeries in the last year ? No Have you developed any new diseases in the last year ? No Have any close family members developed new diseases in the last year ? No Have you been to a the hospital in the last year ? Yes Do you take any pills or supplements other than those prescribed for you ? No Do you take any opiates for pain such as Tramadol, Percocet or [place] ? No How do you consider your overall health ?Good Have you ever used tobacco products ? No Have you smoked more than 100 cigarettes in your life ? Yes What form of tobacco have you used ? Cigarettes How many packs per day ? < 0.5 ppd How many years ? 20 years off an one Have you quit ? Yes Do you drink alcohol ? No Have you ever used illegal drugs at anytime in your life including Marijuana ? No Which of the following describes your diet ?Well balanced How many days per week on average do you exercise ? Walking a few times a week days Do you have any loss of hearing ? No Do you have hearing aids ? No Have you or others noted you have loss of memory ? No Do you need someone to assist you with any of the following ? None Do you need someone to assist you with any of the following ?none Have you fallen in the last 6 months ? No Do you have any of the following in your house ? None Do you have a living will ? Yes Do you have a durable power of Gas Worker for health care decisions ? Yes Medications and Supplements prescribed by me and other practitioners or clinical pharmacist (such as prescriptions, OTC's, herbal therapies and supplements) were reviewed and documented in the medical record. Tobacco/Alcohol/Opioid use, as well as Illicit Drug Use was screened for/reviewed and documented inSocial History section and medication list as appropriate Activities of Daily Living In your present state of health, do you have any difficulty performing the following activities?: Preparing food and eating?: No Bathing yourself: No Getting dressed: No Using the toilet:No Moving around from place to place: No In the past year have you fallen or had a near fall?:No Depression Screen (Note: if answer to either of the following is Yes, then a more complete depression screening is indicated) Q1: Over the past two weeks, have you felt down, depressed or hopeless? No Q2: Over the past two weeks, have you felt little interest or pleasure in doing things? No Depression screening was completed and it was negative, discussed for 5 min. Current exercise habits: The patient does not participate in regular exercise at present. Dietary issues discussed: Yes Hearing difficulties: No Safe in current home environment: yes Visual Acuity assessed: no Cognitive Impairment assessed: yes Advance directives Advanced Care Planning (including a Living Will, Healthcare POA, as well as specific end of life choices and/or directives), was discussed for approximately 1 minutes with the patient and/or surrogate, voluntarily, and documented in the medical record. Cardiac Risk Assessment Cardiovascular risk was discussed and, if needed, lifestyle modifications recommended, including nutritional choices, exercise, and elimination of habits contributing to risk. We agreed on a plan to reduce the current cardiovascular risk based on above discussion as needed. Aspirin use/disuse was discussed after reviewing the updated guidelines below: Consider low dose Aspirin (81-162 mg) use if the benefit for cardiovascular disease prevention outweighs risk for bleeding complications. In general, low dose ASA should be considered: In patients WITHOUT prior FL/stroke/PAD (primary prevention): a. Age <60: Use if 10-year cardiovascular disease risk >20%, with discussion of risks and benefits with patient b. Age 60-<70: Use if 10-year cardiovascular disease risk >20% and low bleeding (e.g., gastrointenstinal) risk, with discussion of risks and benefits with patient c. Age >=70: Do not use In patients WITH prior FL/stroke/PAD (secondary prevention): Generally use unless extremely high bleeding (e.g., gastrointenstinal) risk, with discussion of risks and benefits with patient ROS otherwise negative aside from what was mentioned above in HPI. Vitals BP 126/82 Pulse 93 Ht 1.473 m (4' 10) Wt 53.5 kg (118 lb) BMI 24.66 kg/m Body mass index is 24.66 kg/m . Physical Exam Gen: Alert, NAD HEENT: PERRLA, EOMI, conjunctiva and sclera normal in appearance. Neck: Supple with FROM; No masses/nodes palpable; Thyroid nontender and without nodules; No JULIO Respiratory: Lungs CTAB Cardiovascular: Heart RRR. No M/R/G. Peripheral pulses equal bilaterally Abdomen: Soft, nontender, BS present throughout; No R/G/R; No HSM or masses palpated Extremities: FROM all extremities; Muscle strength grossly normal with good tone Neuro: CN II-XII intact; Reflexes 2+/2+; Gross motor and sensory intact Skin: No suspicious lesions present Assessment and Plan: Problem List Items Addressed This Visit Idiopathic esophageal varices with bleeding (Multi) Autoimmune hepatitis (Multi) Cirrhosis (Multi) Systemic lupus erythematosus, unspecified (Multi) Overview Lupus Rheumatoid arthritis involving both shoulders with positive rheumatoid factor (Multi) Other Visit Diagnoses Type 2 diabetes mellitus without complication, without long-term current use of insulin (Multi) - Primary Relevant Orders Hemoglobin A1C Lipid Panel Acquired hypothyroidism Relevant Orders TSH with reflex to Free T4 if abnormal Medicare annual wellness visit, subsequent Cirrhosis, hx of autoimmune hepatitis - sees Dr Gtz at hepatology - on spironolactone 2. Hx of bleeding ulcer, resolved - was seeing Dr Yancey - on protonix 3. Lupus, RA, stable - follows with Dr Pacheco - on imuran - on prednisone 4. DMII 2/2 steroids - continue glipzide - last A1c 7 in 11/04, 7.3%, will order 5. Hypothyroidism -continue synthroid - tsh 3.4 , recheck 6. HTN - continue metoprolol DEXA scheduled tomorrow Pap Na Colon cancer screening has cologuard to do from insurance Mammo declines Immunizations Flu 2021 COVID received Pna recommended Shingles recommended RSV recommended During the course of the visit the patient was educated and counseled about age appropriate screening and preventive services. Completed preventive screenings were documented in the chart and orders were placed for outstanding screenings/procedures as documented in the Assessment and Plan. Patient Instructions (the written plan) was given to the patient at check out. Saritha Coles DO documented in this [facility] Work Phone: 1(306) 610-204803-05-2024 NoteHNO ID: [id number] Author: JEFFRY ROYAL MD Service: ? Author Type: Physician Type: Progress Notes Filed: 05/18/2023 13:46 Note Text: HISTORY OF PRESENT ILLNESS: Vannessa Preston is a 67 year old female. Referred back for evaluation of thrombocytopenia. Labs reviewed, history of auto immune hepatitis and hepatic cirrhosis reviewed, also use of immunosuppressive meds, imuran. Doing ok, no clinical changes. Reviewed physiology of portal hypertension as we see evidence of this on US. Bleeding ulcer November 2022, needed transfusion. Was in [facility], had scope. CLINICAL IMPRESSION: Chronic thrombocytopenia, also leukopenia, relates to portal hypertension and hypersplenism. No intervention or further work up, other than updating vitamin levels RECOMMENDATION/PLAN: 1. Labs drawn today 2. Follow up as needed unless vitamin supplementation is needed. Written and verbal health teaching given to patient, patient verbalizes understanding and agrees with treatment plan. PAST MEDICAL HISTORY Diagnosis Date Diabetes (HCC) Hepatitis, unspecified Autoimmune Lupus erythematosus Other and unspecified hyperlipidemia Rheumatoid arthritis (HCC) Unspecified essential hypertension PAST SURGICAL HISTORY Procedure Laterality Date DILATION AND CURETTAGE DXAND/THER NONOBSTETRIC Dilation AND curettage EGD W/O BRSH SPEC VARICIES INJ RMVL SEC MEMBRANOUS CTRC CORNEO-SCLL SCTJ Cataract removal right and left FAMILY HISTORY Problem Relation Age of Onset Heart Mother Diabetes Mother Diabetes Father Alzheimer's Disease Sister Heart Attack Brother Social History Tobacco Use Smoking status: Former Packs/day: .5 Types: Cigarettes Quit date: 10/02/2007 Years since quittin.6 Smokeless tobacco: Never Tobacco comments: Pt smoked on AND off x 10 years ALLERGIES: ALLERGIES Allergen Reactions Levaquin [Levofloxa* Swelling Septra [Sulfamethox* CURRENT OUTPATIENT MEDICATIONS: spironolactone (ALDACTONE) 100 mg tablet Take 100 mg by mouth once daily. predniSONE (DELTASONE) 5 mg tablet Take 7.5 mg by mouth once daily. azaTHIOprine (IMURAN) 50 mg tablet Take 75 mg by mouth once daily. glipiZIDE (GLUCOTROL XL) 2.5 mg 24 hr tablet Take 2.5 mg by mouth once daily. ferrous sulfate (IRON) 325 mg (65 mg iron) tablet Take two tablets by mouth once daily. cholecalciferol (VITAMIN D-3) 50 mcg (2,000 unit) tablet Take 2,000 Units by mouth once daily. carvedilol (COREG) 6.25 mg tablet Take 6.25 mg by mouth two times a day with meals. ezetimibe(ZETIA 10 MG TAB) Take 10 mg by mouth once daily. spironolactone (ALDACTONE) 25 mg tablet Take 25 mg by mouth once daily. pantoprazole DR (PROTONIX) 40 mg tablet Take 40 mg by mouth once daily. metoprolol succinate(TOPROL XL 50 MG 24 HR TAB) Take one(1) tablet daily. amlodipine besylate(NORVASC 10 MG TAB) Take one(1) tablet daily. risedronate sodium(ACTONEL 35 MG TAB) Take once per week in the morning with a full glass of water, on an empty stomach, and do not take anything else by mouth or lie down for the next 30 minutes. PREDNISONE 10 MG TAB Take 5 mg by mouth once daily. ADMINISTER WITH FOOD 1.5 mg daily calcium carbonate/vitamin d3(CALCIUM 500 + D 500 MG (1,250 MG)-200 UNIT TAB) Take one(1) tablet twice daily. REVIEW OF SYSTEMS: GENERAL: No fever, night sweats, weight loss or malaise. All other reviewed and negative other than HPI. PHYSICAL EXAMINATION: VITAL SIGNS: BP 122/75 Pulse 90 Temp (Src) 98 (Temporal) Ht 4' 9 (1.45m) Wt 118 lb 8 oz (53.8kg) SpO2 99% BMI 25.64 kg/(m2). GENERAL APPEARANCE: Well appearing, in no acute distress, alert and oriented x3, well-hydrated, well nourished. I spent a total of 45 minutes on the date of the service which included preparing to see the patient, [id number] patient care, completing clinical documentation, obtaining and/or reviewing separately obtained history, counseling and educating the patient/family/caregiver, ordering medications, tests, or procedures, independently interpreting results (not separately reported), and communicating results to the patient/family/caregiver. Electronically Signed: Jeffry Royal MD May 18, 2023 9:33 [facility]01-22-2024 History of Present illness Narrative* Saritha Chaudhary Lopezdonnie, DO - 04/05/2023 1:40 PM EST Subjective Patient ID: Vannessa Moreno is a 67 y.o. 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 HPI Patient is a 67 y.o. female patient who is here today to establish care. Pt has a pmhx of autoimmune hepatitis -> cirrhosis, Lupus, htn, thrombocytopenia, arthritis. Review of Systems Constitutional: Negative for activity change, appetite change, chills and fatigue. HENT: Negative for congestion, postnasal drip, sinus pressure, sinus pain and sore throat. Respiratory: Negative for cough, shortness of breath and wheezing. Cardiovascular: Negative for chest pain and leg swelling. Gastrointestinal: Negative for abdominal distention, diarrhea, nausea and vomiting. Musculoskeletal: Negative for back pain. Neurological: Negative for weakness and numbness. Objective BP 129/68 Pulse 80 Ht 1.473 m (4' 10) Wt 51.7 kg (114 lb) BMI 23.83 kg/m Physical Exam Constitutional: General: She is not in acute distress. Appearance: Normal appearance. She is not toxic-appearing. HENT: Head: Normocephalic and atraumatic. Comments: Broken left front tooth Right Ear: Tympanic membrane, ear canal and external ear normal. Left Ear: Tympanic membrane, ear canal and external ear normal. Nose: Nose normal. Mouth/Throat: Mouth: Mucous membranes are moist. Pharynx: Oropharynx is clear. Eyes: Extraocular Movements: Extraocular movements intact. Conjunctiva/sclera: Conjunctivae normal. Pupils: Pupils are equal, round, and reactive to light. Cardiovascular: Rate and Rhythm: Normal rate and regular rhythm. Heart sounds: No murmur heard. No friction rub. No gallop. Pulmonary: Effort: Pulmonary effort is normal. Breath sounds: Normal breath sounds. Abdominal: General: Bowel sounds are normal. There is no distension. Palpations: Abdomen is soft. There is no mass. Tenderness: There is no abdominal tenderness. There is no guarding. Musculoskeletal: General: Swelling (swelling of ankita mcps, slight ulnar deviation of phalanges) present. Normal rangeof motion. Cervical back: Normal range of motion. Skin: General: Skin is warm and dry. Neurological: General: No focal deficit present. Mental Status: She is alert and oriented to person, place, and time. Psychiatric: Mood and Affect: Mood normal. Thought Content: Thought content normal. Judgment: Judgment normal. Immunizations Flu shot 2021, did not get this year COVID received PNA recommended Shingles recommended RSV recommended Mammo declines Pap n/a DEXA supposed to be done Colonoscopy has never had one Assessment/Plan Problem List Items Addressed This Visit Idiopathic esophageal varices with bleeding (CMS/HCC) - Primary Autoimmune hepatitis (CMS/HCC) Cirrhosis (CMS/HCC) Systemic lupus erythematosus, unspecified (CMS/HCC) Rheumatoid arthritis involving both shoulders with positive rheumatoid factor (CMS/HCC) Cirrhosis, hx of autoimmune hepatitis - sees Dr Gtz at hepatology - on spironolactone 2. Hx of bleeding ulcer - was seeing Dr Yancey - on protonix 3. Lupus, RA - follows with Dr Pacheco - on imuran - on prednisone 4. DMII 2/2 steroids - continue glipzide - last A1c 7 in 11/04, will order A1c 5. Hypothyroidism - she is supposed to be taking 300mcg once a week - tsh 4.9 in 11/04, repeat 6 weeks after restarting 6. HTN - continue metoprolol Final diagnoses: [I85.01] Idiopathic esophageal varices with bleeding (CMS/HCC) [K74.69] Other cirrhosis of liver (CMS/HCC) [K75.4] Autoimmune hepatitis (CMS/HCC) [M32.9] Systemic lupus erythematosus, unspecified SLE type, unspecified organ involvement status (CMS/HCC) [M05.711, M05.712] Rheumatoid arthritis involving both shoulders with positive rheumatoid factor (CMS/HCC) documented in this [facility] Work Phone: 1(809) 657-228809-17-2023 Progress note Author Pacheco Shrestha [facility] November 29, 2022 9:32am Note Date/Time November 29, 2022 9:33am [facility] Medical Records Department [address] [place] [address] Progress Note - Surgery 11/29/22930 MR#: [id number] Acct: [id number] Name: VANNESSA PRESTON Rep #:[id number] : [id number] 67 From: Pacheco padgett MD PCP: Dr. Zeke Chapman MD Status:ADM IN Location: [place] [address] Subjective Subjective Patient reports no bowel movement since her procedure. She is not short of breath. She denies dizziness. Objective Data Objective Data Vital Signs: Vital Signs Temp Pulse Resp BP Pulse Ox O2 Del Method 98.9 F 112 H 16 106/53 L 96 Room Air 11/29/22 03:25 11/29/22 03:25 11/29/22 03:25 11/29/22 03:25 11/29/22 03:25 11/29/22 03:25 Oxygen Delivery Method Room Air Weight: 118 lb 12.8 oz Body Mass Index (BMI) 24.8 Intake & Output: Intake and Output for Last 24 Hours 11/27/22 11/28/22 11/29/22 23:59 23:59 23:59 Intake Total 1035 / 1035 1368.42 / 1368.42 1272.92 / 1272.92 Output Total Balance 1035 / 1035 1367.42 / 1367.42 1272.92 / 1272.92 Lab / Micro Data 11/29/22 06:40 11/29/22 06:40 Labs: Laboratory Results - last 24 hr 11/28/22 11:36: POC Glucose 97 11/28/22 12:19: Hgb 8.3 L, Hct 27.0 L 11/28/22 16:10: POC Glucose 80 11/28/22 21:24: POC Glucose 144 H 11/29/22 06:18: POC Glucose 133 H 11/29/22 06:40: WBC 7.4, RBC 2.90 L, Hgb 8.1 L, Hct 27.0 L, MCV 93.1, MCH 27.9, MCHC 30.0 L D, RDW Std Deviation 63.5 H, RDW Coeff of Joel 18.9 H, Plt Count 48 L*, MPV 13.5 H, Immature Gran % (Auto) 0.900, Neut % (Auto) 89.3 H, Lymph % (Auto) 2.6 L, Chaves % (Auto) 6.8, Eos % (Auto) 0.1, Baso % (Auto) 0.3, Absolute Neuts (auto) 6.6, Absolute Lymphs (auto) 0.19 L, Nucleated RBC % 2.0, Diff Path Review July, Platelet Estimate MKD DEC, Sodium 140, Potassium 3.5, Chloride 116 H, Carbon Dioxide 18.0 L, Anion Gap 6, BUN 20 H, Creatinine 0.76, Estim Creat Clear Calc 47.08, Est GFR (MDRD) Af Amer 97, Est GFR (MDRD) Non-Af 80, BUN/Creatinine Ratio 26.2 H, Glucose 141 H, Calcium 7.2 L Micro: Microbiology 11/27/22 22:51 Stool Stool Occult Blood (FREDERICK) - Final Occult Blood Positive 11/27/22 20:15 Nasal Secretion SARS-CoV-2 & FLU Antigen (Rapid) - Final Physical Exam Const oriented x3 and no apparent distress Resp normal respiratory effort GI soft to palpation and non-tender Assessment & Plan Assessment/Plan (1) ABLA (acute blood loss anemia): PLAN: Patient had acute blood loss anemia. Unsure if this is from her esophageal ulcer or from her gastritis that had punctate bleeding. I recommend converting her to oral Protonix. I will order her regular diet today as she tolerated clears with no problem and did not have any drop in her hemoglobin. My recommendation will be to check 1 more H&H this afternoon and if that is stable she could probably go home but I will defer that decision to the hospitalist service. Her platelets were low today but this may be consumptive due to her bleeding. She can follow-up with me in 1 week for repeat H&H. Pacheco Shrestha MD Pager: [facility] [address], [address] [place] [address] Office: 11/29/22 0932 <Electronically signed by Pacheco Shrestha MD> Cosigner Signature (if applicable): CC: ~ Signed [facility] Work Phone: 1(183) 797-354009-17-2023 Progress note Author Chris Chatterjee [facility] November 29, 2022 8:52am Note Date/Time November 29, 2022 8:52am [facility] Medical Records Department [address] [place] [address] Progress Note - Hospitalist 11/29/22847 MR#: [id number] Acct: [id number] Name: VANNESSA PRESTON Rep #:[id number] : 1955 67 From: Chris mar MD PCP: Dr. Zeke Chapman MD Status:ADM IN Location: [place] [address] Subjective Subjective Doing well, no issues overnight. She feels better than when she came in, posttransfusion after her EGD her hemoglobin was 8.3 this morning she is down to8.1 Objective Data Objective Data Vital Signs: Vital Signs Temp Pulse Resp BP Pulse Ox O2 Del Method 98.9 F 112 H 16 106/53 L 96 Room Air 11/29/22 03:25 11/29/22 03:25 11/29/22 03:25 11/29/22 03:25 11/29/22 03:25 11/29/22 03:25 Oxygen Delivery Method Room Air Weight: 118 lb 12.8 oz Body Mass Index (BMI) 24.8 Intake & Output: Intake and Output for Last 24 Hours 11/28/22 11/29/22 11/30/22 03:59 03:59 03:59 Intake Total 1156.25 / 1156.25 1331.34 / 1331.34 1188.75 / 1188.75 Output Total Balance 1155.25 / 1155.25 1331.34 / 1331.34 1188.75 / 1188.75 Lab / Micro Data 11/29/22 06:40 11/29/22 06:40 Labs: Laboratory Results - last 24 hr 11/27/22 22:18: Crossmatch See Detail 11/28/22 11:36: POC Glucose 97 11/28/22 12:19: Hgb 8.3 L, Hct 27.0 L 11/28/22 16:10: POC Glucose 80 11/28/22 21:24: POC Glucose 144 H 11/29/22 06:18: POC Glucose 133 H 11/29/22 06:40: WBC 7.4, RBC 2.90 L, Hgb 8.1 L, Hct 27.0 L, MCV 93.1, MCH 27.9, MCHC 30.0 L D, RDW Std Deviation 63.5 H, RDW Coeff of Joel 18.9 H, Plt Count 48 L*, MPV 13.5 H, Immature Gran % (Auto) 0.900, Neut % (Auto) 89.3 H, Lymph % (Auto) 2.6 L, Chaves % (Auto) 6.8, Eos % (Auto) 0.1, Baso % (Auto) 0.3, Absolute Neuts (auto) 6.6, Absolute Lymphs (auto) 0.19 L, Nucleated RBC % 2.0, Diff Path Review July, Platelet Estimate MKD DEC, Sodium 140, Potassium 3.5, Chloride 116 H, Carbon Dioxide 18.0 L, Anion Gap 6, BUN 20 H, Creatinine 0.76, Estim Creat Clear Calc 47.08, Est GFR (MDRD) Af Amer 97, Est GFR (MDRD) Non-Af 80, BUN/Creatinine Ratio 26.2 H, Glucose 141 H, Calcium 7.2 L Micro: Microbiology 11/27/22 22:51 Stool Stool Occult Blood (FREDERICK) - Final Occult Blood Positive 11/27/22 20:15 Nasal Secretion SARS-CoV-2 & FLU Antigen (Rapid) - Final Physical Exam Narrative General: Alert, Oriented x3, Cooperative, No apparent distress HEENT: Atraumatic, PERRLA, EOMI, Normocephalic Oral: Moist mucosa Neck: Supple, No JVD Lungs: Clear to auscultation, Normal air movement, No rhonchi, No wheeze, No rales Cardiovascular: Regular rate, Regular Rhythm, Normal S1, Normal S2, No murmurs Abdomen: Soft, Non Tender, Non-Distended, No Hepato-splenomegaly Extremities: No edema, Capillary Refill Less than 3 Seconds Skin: No rashes, No breakdown, pale Musculoskeletal: No Tenderness to Palpation of Joints or Extremities Neurological: Cranial nerves II-XII grossly intact, Motor Exam 5/5 strength throughout, Sensory exam intact to light touch and pain Psych/Mental Status: Normal Affect, Appropriate Assessment & Plan Assessment/Plan (1) Hypertension: QUALIFIERS: Hypertension type: primary hypertension Qualified Code(s): I10 - Essential (primary) hypertension (2) Diabetes mellitus: QUALIFIERS: Diabetes mellitus type: type 2 Diabetes mellitus usp insulin use: without rn long term care use Diabetes mellitus complication status: without complication Qualified Code(s): E11.9 - Type 2 diabetes mellitus without complications (3) Autoimmune hepatitis: (4) ABLA (acute blood loss anemia): PLAN: Plan 1. 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 Recheck hemoglobin this afternoon ? EGD with punctate bleeding from gastritis as well as 2 ulcers that do not appear to be bleeding ? Continue with PPI and Carafate 2. HTN/HLD ? Blood pressure is stable, if on the low side ? We will hold her Coreg and Aldactone given significant anemia ? Continue with her home cholesterol medication 3. DM2 ? Stable, will hold her home glipizide ? We will place her on sliding scale insulin ? Accu-Cheks ? We will monitor and make adjustments as necessary 4. Hypothyroidism ? Stable ? Continue with Synthroid DVT: SCDs Charges/Coding Visit Charges Inpatient E&M: 18218 Subs Hosp L2 11/29/22 0852 <Electronically signed by Chris Chatterjee MD> Cosigner Signature (if applicable): CC: ~ Signed [facility] Work Phone: [phone]) 735-793809-16-2023 Progress note Author Pacheco Shrestha [facility] November 28, 2022 1:30pm Note Date/Time November 28, 2022 1:30pm [facility] Medical Records Department [address] [place] [address] Progress Note 11/28/22 1329 MR#: [id number] Acct: [id number] Name: VANNESSA PRESTON Rep #:[id number] : 1955 67 From: Pacheco padgett MD PCP: Dr. Zkee Chapman MD Status:ADM RUBEN Location: [address] Progress Note Formed an EGD on the patient for GI bleeding. The duodenum appeared normal. The pylorus appeared normal. At the GE junction there was an ulcer in the distal esophagus. It did not have any clot or stigmata of bleeding and it was granulated. The stomach was friable in any area that was suction started bleeding. I did not note large varices or variceal bleeding. The area GE junction that was bleeding was only because of scope trauma from suction. I recommend the patient start clear liquid diet and Carafate. She may continue her IV PPI. Continue to monitor hemoglobin. Hope to advance diet tomorrow if hemoglobin stable. Pacheco Shrestha MD Pager: [facility] [address] [place] [address], [address] [place] [address] Office: 11/28/22 7610 <Electronically signed by Pacheco Shrestha MD> Pacheco Shrestha MD Cosigner Signature (if applicable): CC: ~ Signed [facility] Work Phone: [phone]) 379-630909-16-2023 Procedure [facility] 11-28-2022 Procedure [facility]09-16-2023 Consult note Author Pacheco Shrestha [facility] November 28, 2022 8:36am Note Date/Time November 28, 2022 8:35am [facility] Medical Records Department [address] [place] [address] Consultation - Surgical 11/28/22 0834 MR#: [id number] Acct: [id number] Name: VANNESSA PRESTON Rep #:[id number] : 1955 67 From: Pacheco padgett MD PCP: Dr. Zeke Chapman MD Status:ADM RUBEN Location: [place] [address] Assessment & Plan Assessment/Plan (1) ABLA (acute blood loss anemia): PLAN: Patient was severely anemic and is receiving a blood transfusion currently. Patient is having melanotic stools with the anemia. Patient does have a history of cirrhosis and has had variceal banding in the past. I will take the patient for an EGD this afternoon after transfusion is complete. I will evaluate the stomach and the esophagus. If there are large esophageal varices that are bleeding she may need transfer. She is on an IV PPI. They arechecking on the hemoglobin after transfusion. I explained endoscopy in detail to the patient. I explained the risks includingbut not limited to stroke or heart attack with anesthesia, perforation of the GItract, bleeding, infection. I explained that any of these could necessitate further emergency surgery. The patient understands and all questions were answered sufficiently. The patient wishes to proceed with procedure. Pacheco Shrestha MD Pager: [facility] [address] [place] [address], [address] [place] [id number] Office: HPI Consult Data Date of Consult: 11/28/22 HPI Narrative HPI Narrative: VANNESSA PRESTON, is a 67 F who presents with weakness. Patient notes he has beenhaving some dark stools for the past week. She denies abdominal pain. She doeshave a history of variceal bleeding that required bands. She is on chronic steroids. She does not take a PPI. [facility] Medical History Anemia Former smoker GI bleed Hepatitis High cholesterol History of immunosuppression therapy History of steroid therapy History of stress test Hoarseness Hypertension Hypothyroidism Irregular heart beat Non-smoker Osteoporosis Post-menopausal Rheumatoid arthritis Ulcer Home Medications calcium carbonate 500 mg-vitamin D3 5 mcg (200 unit) tablet 1 tab PO BIDCM #60 tabs 09/23/18 [Rx Last Taken Unknown] ferrous sulfate 325 mg (65 mg iron) tablet 325 mg PO BIDCM #60 tabs 09/23/18 [Rx Last Taken Unknown] spironolactone 25 mg tablet 25 mg PO BID #60 tabs 09/23/18 [Rx Last Taken Unknown] carvedilol 6.25 mg tablet 6.25 mg PO BID 07/15/22 [History Last Taken Unknown] ezetimibe 10 mg tablet 10 mg PO DAILY 07/15/22 [History Last Taken Unknown] glipizide 5 mg tablet 5 mg PO DAILY 07/15/22 [History Last Taken Unknown] levothyroxine 50 mcg capsule 50 mcg PO DAILY 07/15/22 [History Last Taken Unknown] prednisone 5 mg tablet 5 mg PO DAILY 07/15/22 [History Last Taken Unknown] azathioprine 50 mg tablet 75 mg PO DAILY 11/28/22 [History Last Taken Unknown] Allergy/AdvReac Type Severity Reaction Status Date / Time Sulfa (Sulfonamide Allergy Severe Swelling Verified 10/14/22 10:35 Antibiotics) Family History Other Diabetes Heart disease Surgical History H/O section History of cataract surgery Social History Smoking Status: Former smoker ROS Constitutional Constitutional: Reports anorexia; Denies chills, fatigue or fever(s) Eyes Eyes: Denies blurry vision ENT HEENT: Denies abnormal hearing Cardiovascular Cardiovascular: Denies chest pain Respiratory/Chest Respiratory/Chest: Denies cough or dyspnea Gastrointestinal Gastrointestinal: Reports melena; Denies abdominal pain, nausea or vomiting Genitourinary Genitourinary: Denies change in urinary stream Musculoskeletal Musculoskeletal: Denies abnormal gait Integumentary Integumentary: Denies jaundice Neurologic Neurologic: Denies abnormal gait Endocrine Endocrinology: Denies flushing Physical Exam Const alert and oriented x3 General Appearance: cooperative HEENT normocephalic Eyes PERRL Resp normal respiratory effort Cardio Rate: regular rate Rhythm: regular rhythm GI soft to palpation and non-tender Lab / Micro Data 11/27/22 21:05 11/28/22 06:54 Labs: Laboratory Results - last 24 hr 11/27/22 19:35: Immature Plt Fraction 10.8 H, Retic Count 7.78 H, Immature ReticFraction 36.90 H, Retic Hgb Equivalent 21.8 L, Sodium 138, Potassium 4.3, Chloride 110 H, Carbon Dioxide 22.0, Anion Gap 6, BUN 33 H, Creatinine 0.73, Estim Creat Clear Calc 47.08, Est GFR (MDRD) Af Amer 102, Est GFR (MDRD) Non-Af 85, BUN/Creatinine Ratio 45.2 H, Glucose 238 H, Calcium 8.2 L, Iron 17 L, TIBC 285, Iron Saturation 6.0 L, Ferritin 50, Total Bilirubin 0.70, AST 18, ALT 27, Alkaline Phosphatase 123 H, Troponin I High Sens 13, Total Protein 6.4, Albumin 2.6 L, Globulin 3.8, Albumin/Globulin Ratio 0.7 L, Folate 19.20 11/27/22 20:15: Urine Color Yellow, Urine Clarity Clear, Urine pH 6.0, Ur Specific [place] 1.020, Urine Protein Negative, Urine Glucose (UA) 1000 H, Urine Ketones 5 H, Urine Occult Blood Negative, Urine Nitrite Negative, Urine Bilirubin Negative, Urine Urobilinogen Normal, Ur Leukocyte Esterase 500 H, Urine RBC 0 SEEN, Urine WBC 10-25 SEEN, Ur Squamous Epith Cells 0-5 SEEN, Urine Bacteria RARE, Urine Mucus 0 SEEN 11/27/22 21:05: WBC 8.5, RBC 2.10 L, Hgb 5.7 L*, Hct 20.5 L, MCV 97.6, MCH 27.1,MCHC 27.8 L, RDW Std Deviation 65.2 H, RDW Coeff of Joel 18.6 H, Plt Count 96 L, MPV 13.5 H, Immature Gran % (Auto) 1.900 H, Neut % (Auto) 89.0 H, Lymph % (Auto)3.0 L, Chaves % (Auto) 6.0, Eos % (Auto) 0.0, Baso % (Auto) 0.1, Absolute Neuts (auto) 7.5, Absolute Lymphs (auto) 0.25 L, Nucleated RBC % 1.9, Differential Comment SEE COMMENTS, Diff Path Review Suki murdock, Platelet Estimate MOD DEC, RBC Morphology N CHROM, Polychromasia RARE, Hypochromasia 1+, Anisocytosis 1+, Macrocytosis 1+, Ovalocytes RARE, Acanthocytes (Spur) RARE 11/27/22 22:18: Blood Type A NEGATIVE, Antibody Screen NEGATIVE, Crossmatch See Detail 11/28/22 01:10: POC Glucose 110 H 11/28/22 05:58: POC Glucose 97 11/28/22 06:54: Sodium 143, Potassium 3.6, Chloride 116 H, Carbon Dioxide 20.0 L, Anion Gap 7, BUN 26 H, Creatinine 0.51 L, Estim Creat Clear Calc 47.08, Est GFR (MDRD) Af Amer 154, Est GFR (MDRD) Non-Af 127, BUN/Creatinine Ratio 50.6 H, Glucose 93, Calcium 7.6 L Micro: Microbiology 11/27/22 22:51 Stool Stool Occult Blood (FREDERICK) - Final Occult Blood Positive 11/27/22 20:15 Nasal Secretion SARS-CoV-2 & FLU Antigen (Rapid) - Final Radiology Impression Chest X-Ray 11/27/22 19:58 IMPRESSION: Normal x-ray examination of the chest. Electronically Signed: Boogie Tuttle MD at 20:12 EDT , 11/28/22 0836 <Electronically signed by Pacheco Shrestha MD> Cosigner Signature (if applicable): CC: Dr. Pacheco Shrestha MD; Dr. Zeke Chapman MD; Dr. Tomer Lew MD~ Signed [facility] Work Phone: [phone]) 650-845709-16-2023 Progress note Author Chris Chatterjee [facility] November 28, 2022 8:11am Note Date/Time November 28, 2022 8:11am [facility] Medical Records Department [address] [place] [address] Progress Note - Hospitalist 11/28/22 08 MR#: [id number] Acct: [id number] Name: VANNESSA PRESTON Rep #:[id number] : 1955 67 From: Chris mar MD PCP: Dr. Zeke Chapman MD Status:ADM RUBEN Location: [place] [address] Subjective Subjective Doing well, feels fatigued. States that she has been noticing darker stools over the last couple weeks but thinks that it was because she changed her diet because she found out that she had gallstones. Objective Data Objective Data Vital Signs: Vital Signs Temp Pulse Resp BP Pulse Ox O2 Del Method 98.2 F 96 18 106/56 L 98 Room Air 11/28/22 06:50 11/28/22 06:50 11/28/22 06:50 11/28/22 06:50 11/28/22 06:50 11/28/22 07:58 Oxygen Delivery Method Room Air Weight: 118 lb 12.8 oz Body Mass Index (BMI) 24.8 Intake & Output: Intake and Output for Last 24 Hours 11/27/22 11/28/22 11/29/22 03:59 03:59 03:59 Intake Total 1156.25 / 1156.25 72.17 / 72.17 Output Total Balance 1155.25 / 1155.25 72.17 / 72.17 Lab / Micro Data 11/27/22 21:05 11/27/22 19:35 Labs: Laboratory Results - last 24 hr 11/27/22 19:35: Immature Plt Fraction 10.8 H, Retic Count 7.78 H, Immature ReticFraction 36.90 H, Retic Hgb Equivalent 21.8 L, Sodium 138, Potassium 4.3, Chloride 110 H, Carbon Dioxide 22.0, Anion Gap 6, BUN 33 H, Creatinine 0.73, Estim Creat Clear Calc 47.08, Est GFR (MDRD) Af Amer 102, Est GFR (MDRD) Non-Af 85, BUN/Creatinine Ratio 45.2 H, Glucose 238 H, Calcium 8.2 L, Iron 17 L, TIBC 285, Iron Saturation 6.0 L, Ferritin 50, Total Bilirubin 0.70, AST 18, ALT 27, Alkaline Phosphatase 123 H, Troponin I High Sens 13, Total Protein 6.4, Albumin 2.6 L, Globulin 3.8, Albumin/Globulin Ratio 0.7 L, Folate 19.20 11/27/22 20:15: Urine Color Yellow, Urine Clarity Clear, Urine pH 6.0, Ur Specific [place] 1.020, Urine Protein Negative, Urine Glucose (UA) 1000 H, Urine Ketones 5 H, Urine Occult Blood Negative, Urine Nitrite Negative, Urine Bilirubin Negative, Urine Urobilinogen Normal, Ur Leukocyte Esterase 500 H, Urine RBC 0 SEEN, Urine WBC 10-25 SEEN, Ur Squamous Epith Cells 0-5 SEEN, Urine Bacteria RARE, Urine Mucus 0 SEEN 11/27/22 21:05: WBC 8.5, RBC 2.10 L, Hgb 5.7 L*, Hct 20.5 L, MCV 97.6, MCH 27.1,MCHC 27.8 L, RDW Std Deviation 65.2 H, RDW Coeff of Joel 18.6 H, Plt Count 96 L, MPV 13.5 H, Immature Gran % (Auto) 1.900 H, Neut % (Auto) 89.0 H, Lymph % (Auto)3.0 L, Chaves % (Auto) 6.0, Eos % (Auto) 0.0, Baso % (Auto) 0.1, Absolute Neuts (auto) 7.5, Absolute Lymphs (auto) 0.25 L, Nucleated RBC % 1.9, Differential Comment SEE COMMENTS, Diff Path Review July foll, Platelet Estimate MOD DEC, RBC Morphology N CHROM, Polychromasia RARE, Hypochromasia 1+, Anisocytosis 1+, Macrocytosis 1+, Ovalocytes RARE, Acanthocytes (Spur) RARE 11/27/22 22:18: Blood Type A NEGATIVE, Antibody Screen NEGATIVE, Crossmatch See Detail 11/28/22 01:10: POC Glucose 110 H 11/28/22 05:58: POC Glucose 97 Micro: Microbiology 11/27/22 22:51 Stool Stool Occult Blood (FREDERICK) - Final Occult Blood Positive 11/27/22 20:15 Nasal Secretion SARS-CoV-2 & FLU Antigen (Rapid) - Final Radiography Diagnostic Testing: Radiology Impression Chest X-Ray 11/27/22 19:58 IMPRESSION: Normal x-ray examination of the chest. Electronically Signed: Boogie Tuttle MD at 20:12 EDT , Physical Exam Narrative General: Alert, Oriented x3, Cooperative, No apparent distress HEENT: Atraumatic, PERRLA, EOMI, Normocephalic Oral: Dry mucosa Neck: Supple, No JVD Lungs: Clear to auscultation, Normal air movement, No rhonchi, No wheeze, No rales Cardiovascular: Regular rate, Regular Rhythm, Normal S1, Normal S2, No murmurs Abdomen: Soft, Non Tender, Non-Distended, No Hepato-splenomegaly Extremities: No edema, Capillary Refill Less than 3 Seconds Skin: No rashes, No breakdown, pale Musculoskeletal: No Tenderness to Palpation of Joints or Extremities Neurological: Cranial nerves II-XII grossly intact, Motor Exam 5/5 strength throughout, Sensory exam intact to light touch and pain Psych/Mental Status: Normal Affect, Appropriate Assessment & Plan Assessment/Plan (1) Hypertension: QUALIFIERS: Hypertension type: primary hypertension Qualified Code(s): I10 - Essential (primary) hypertension (2) Diabetes mellitus: QUALIFIERS: Diabetes mellitus type: type 2 Diabetes mellitus usp insulin use: without rn long term care use Diabetes mellitus complication status: without complication Qualified Code(s): E11.9 - Type 2 diabetes mellitus without complications (3) Autoimmune hepatitis: (4) ABLA (acute blood loss anemia): PLAN: Plan 1. 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 We will transfuse 2 units ? General surgery was consulted plan for EGD today ? Depending on findings may need octreotide as well as nadolol, she is already on Coreg ? Continue with PPI ? Her hemoglobin on 09/02/2022 was 12.6 with this is a fairly new and rapid bleed 2. HTN/HLD ? Blood pressure is stable, if on the low side ? We will hold her Coreg and Aldactone given significant anemia ? Continue with her home cholesterol medication 3. DM2 ? Stable, will hold her home glipizide ? We will place her on sliding scale insulin ? Accu-Cheks ? We will monitor and make adjustments as necessary 4. Hypothyroidism ? Stable ? Continue with Synthroid DVT: SCDs Charges/Coding Visit Charges Inpatient E&M: 65789 Subs Hosp L2 11/28/22 0811 <Electronically signed by Chris Chatterjee MD> Cosigner Signature (if applicable): CC: ~ Signed [facility] Work Phone: [phone]) 360-998009-16-2023 History and physical note Author Tomer Lew [facility] November 28, 2022 12:36am Note Date/Time November 27, 2022 10:43pm [facility] Medical Records Department [address] [place], [place] [address] [place] [address] H&P Exam - Hospitalist 11/27/221 MR#: [id number] Acct: [id number] Name: VANNESSA PRESTON Rep #:[id number] : 1955 67 From: Tomer Lew MD PCP: Dr. Zeke Chapman MD Status:ADM RUBEN Location: [place] [address] HPI - General General Date of Admission: 11/27/22 Date of Service: 11/27/22 Chief Complaint: Weakness HPI Narrative VANNESSA PRESTON, is a 67 F with a significant history of cirrhosis from autoimmune hepatitis who is on daily prednisone presents emergency department with weakness. Because the patient was being weak for about a week and she feltthat she may be having a flareup of her autoimmune hepatitis. 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 She reports having dark stools which she attributed to a change in her diuretics. Patient was found to be severely anemic with hemoglobin of 5.7 Emergency department also reports black Jet tarry stools on rectal examination. [facility] Medical History Hypertension Home Medications calcium carbonate 500 mg-vitamin D3 5 mcg (200 unit) tablet 1 tab PO BIDCM #60 tabs 09/23/18 [Rx Last Taken Unknown] ferrous sulfate 325 mg (65 mg iron) tablet 325 mg PO BIDCM #60 tabs 09/23/18 [Rx Last Taken Unknown] spironolactone 25 mg tablet 25 mg PO BID #60 tabs 09/23/18 [Rx Last Taken Unknown] carvedilol 6.25 mg tablet 6.25 mg PO BID 07/15/22 [History Last Taken Unknown] ezetimibe 10 mg tablet 10 mg PO DAILY 07/15/22 [History Last Taken Unknown] glipizide 5 mg tablet 5 mg PO DAILY 07/15/22 [History Last Taken Unknown] levothyroxine 50 mcg capsule 50 mcg PO DAILY 07/15/22 [History Last Taken Unknown] prednisone 5 mg tablet 5 mg PO DAILY 07/15/22 [History Last Taken Unknown] amlodipine 5 mg tablet 5 mg PO DAILY 10/14/22 [History Last Taken Unknown] Allergy/AdvReac Type Severity Reaction Status Date / Time Sulfa (Sulfonamide Allergy Severe Swelling Verified 10/14/22 10:35 Antibiotics) Family History Other Diabetes Heart disease Surgical History H/O section History of cataract surgery Social History Smoking Status: Former smoker ROS ROS Narrative Pertinent positives and pertinent negatives as noted in HPI. All other systems were reviewed and are negative Vital Signs Vital Signs Vital Signs: 11/27/22 17:40 11/27/22 18:45 11/27/22 19:42 Temperature 97.6 F L Temperature Source Temporal Pulse Rate 106 H 97 Respiratory Rate 18 23 H Respiratory Effort Normal Non-Labored Respiratory Pattern Normal Blood Pressure 131/49 H 140/68 H Blood Pressure Mean 76 92 Pulse Ox 97 100 Oxygen Delivery Method Room Air Room Air Weight Weight: 53.887 kg Body Mass Index (BMI) 24.8 Physical Exam Narrative Physical exam: General: Well-nourished, well-developed. Head: Normocephalic, atraumatic, no tenderness Eyes: Vision is grossly intact. EOMI ENT, no trauma, moist mucous membranes, no rhinorrhea Neck: Nontender, No thyromegaly. CVS: Regular rate and rhythm. S1-S2 present. No murmur, gallop or rub. Respiratory : clear to auscultation bilaterally, chest wall nontender Abdomen: Soft, nontender, nondistended, normal bowel sounds, no masses : Deferred Back: Nontender, no CVA tenderness Extremities: Nontender full range of motion, no trauma Skin: Pale, no trauma, abrasions Neuro: Alert, oriented, cranial nerves II through XII grossly intact. Psychiatry: Normal mood. Normal affect. Not depressed. Not anxious. Results Lab / Micro Data 11/27/22 21:05 11/27/22 19:35 Labs: Laboratory Results - last 24 hr 11/27/22 19:35: Sodium 138, Potassium 4.3, Chloride 110 H, Carbon Dioxide 22.0, Anion Gap 6, BUN 33 H, Creatinine 0.73, Estim Creat Clear Calc 47.08, Est GFR (MDRD) Af Amer 102, Est GFR (MDRD) Non-Af 85, BUN/Creatinine Ratio 45.2 H, Glucose 238 H, Calcium 8.2 L, Total Bilirubin 0.70, AST 18, ALT 27, Alkaline Phosphatase 123 H, Troponin I High Sens 13, Total Protein 6.4, Albumin 2.6 L, Globulin 3.8, Albumin/Globulin Ratio 0.7 L 11/27/22 20:15: Urine Color Yellow, Urine Clarity Clear, Urine pH 6.0, Ur Specific [place] 1.020, Urine Protein Negative, Urine Glucose (UA) 1000 H, UrineKetones 5 H, Urine Occult Blood Negative, Urine Nitrite Negative, Urine Bilirubin Negative, Urine Urobilinogen Normal, Ur Leukocyte Esterase 500 H, Urine RBC 0 SEEN, Urine WBC 10-25 SEEN, Ur Squamous Epith Cells 0-5 SEEN, Urine Bacteria RARE, Urine Mucus 0 SEEN 11/27/22 21:05: WBC 8.5, RBC 2.10 L, Hgb 5.7 L*, Hct 20.5 L, MCV 97.6, MCH 27.1,MCHC 27.8 L, RDW Std Deviation 65.2 H, RDW Coeff of Joel 18.6 H, Plt Count 96 L, MPV 13.5 H, Immature Gran % (Auto) 1.900 H, Neut % (Auto) 89.0 H, Lymph % (Auto)3.0 L, Chaves % (Auto) 6.0, Eos % (Auto) 0.0, Baso % (Auto) 0.1, Absolute Neuts (auto) 7.5, Absolute Lymphs (auto) 0.25 L, Nucleated RBC % 1.9, Differential Comment SEE COMMENTS, Diff Path Review May foll, Platelet Estimate MOD DEC, RBC Morphology N CHROM, Polychromasia RARE, Hypochromasia 1+, Anisocytosis 1+, Macrocytosis 1+, Ovalocytes RARE, Acanthocytes (Spur) RARE Micro: Microbiology 11/27/22 20:15 Nasal Secretion SARS-CoV-2 & FLU Antigen (Rapid) - Final Radiology Impression Chest X-Ray 11/27/22 19:58 IMPRESSION: Normal x-ray examination of the chest. Electronically Signed: Boogie Tuttle MD at 20:12 EDT , Assessment & Plan Assessment/Plan (1) Hypertension: QUALIFIERS: Hypertension type: primary hypertension Qualified Code(s): I10 - Essential (primary) hypertension (2) Diabetes mellitus: QUALIFIERS: Diabetes mellitus complication status: without complication Diabetes mellitus rn long term care insulin use: without rn long term care use Diabetes mellitus type: type 2 Qualified Code(s): E11.9 - Type 2 diabetes mellitus without complications (3) Autoimmune hepatitis: (4) ABLA (acute blood loss anemia): PLAN: Plan ABLA Hemoglobin on presentation was 5.7. Hemoglobin on 09/02/2022 was 12.6 and on 01/29/2022 was 12.4. Admit to monitored bed on PCU IV fluids ordered. 2 units of blood ordered emergency department. Check H&H 1 hour after second unit of blood is completed. BUN is elevated at 33. There is a high as BUN in 3 years on hospital system. Protonix drip started at the emergency department and continued. General surgery consult Diabetes mellitus Blood glucose now within goal. Hold home glipizide. Accu-Chek correction scaleinsulin ordered. Hypertension Blood pressure is not within goal Home blood pressure medication continued. Trend blood pressure and adjust blood pressure medications. DVT prophylaxis: SCDs ordered.. Time spent in the patient's overall evaluation,decision-making process, review of diagnostic data, adjustment of management, discussion with other providers, nursing nursing and ancillary staff involved in patient's care documentation, 65minutes. Charges/Coding Visit Charges Inpatient E&M: 67054 Init Hosp L3 11/28/22 0036 <Electronically signed by Tomer Lew MD> Cosigner Signature (if applicable): CC: Dr. Zeke Chapman MD; Dr. Tomer Lew MD~ Signed [facility] Work Phone: [phone]) 129-542309-16-2023 Discharge summary Author Ronnie Jeff [facility] November 27, 2022 11:40pm Note Date/Time November 27, 2022 10:51pm [facility] Medical Records Department [address] [place] [address] Emergency Department Summary 11/27/22 MR#: [id number] Acct: [id number] Name: VANNESSA PRESTON Rep #:[id number] : 1955 67 From: Ronnie Jeff DO PCP: Dr. Zeke Chapman MD Status:ADM RUBEN Location: [address] History of Present Illness Chief Complaint: Weakness Narrative Narrative: 67-year-old female presenting with weakness. She has no other symptoms. She denies chest pain, palpitations, shortness of breath. She has not had fever or chills. She denies nausea or vomiting. She denies abdominal pain, urinary complaints. She denies black or bloody stools. Patient not on any blood thinners. Patient states she has a history of autoimmune hepatitis which she istreated for with chronic steroids. She also takes Ezetimibe. [facility] Medical History (Updated 11/27/22 @ 23:[address] Tomer Lew MD) Hypertension Home Medications calcium carbonate 500 mg-vitamin D3 5 mcg (200 unit) tablet 1 tab PO BIDCM #60 tabs 09/23/18 [Rx Last Taken Unknown] ferrous sulfate 325 mg (65 mg iron) tablet 325 mg PO BIDCM #60 tabs 09/23/18 [Rx Last Taken Unknown] spironolactone 25 mg tablet 25 mg PO BID #60 tabs 09/23/18 [Rx Last Taken Unknown] carvedilol 6.25 mg tablet 6.25 mg PO BID 07/15/22 [History Last Taken Unknown] ezetimibe 10 mg tablet 10 mg PO DAILY 07/15/22 [History Last Taken Unknown] glipizide 5 mg tablet 5 mg PO DAILY 07/15/22 [History Last Taken Unknown] levothyroxine 50 mcg capsule 50 mcg PO DAILY 07/15/22 [History Last Taken Unknown] prednisone 5 mg tablet 5 mg PO DAILY 07/15/22 [History Last Taken Unknown] amlodipine 5 mg tablet 5 mg PO DAILY 10/14/22 [History Last Taken Unknown] Allergy/AdvReac Type Severity Reaction Status Date / Time Sulfa (Sulfonamide Allergy Severe Swelling Verified 10/14/22 10:35 Antibiotics) Family History (Updated 11/27/22 @ 22:[address] Tomer Lew MD) Other Diabetes Heart disease Surgical History H/O section History of cataract surgery Social History (Updated 11/27/22 @ 22:[address] Tomer Lew MD) Smoking Status: Former smoker ROS ROS ED Constitutional Constitutional ED: Denies chills, fever(s) or sweats Eyes Eyes: Denies blurry vision or change in vision ENT ENT ED: Denies ear pain or sore throat Cardiovascular Cardiovascular: Denies chest pain, palpitations or racing heartbeat Respiratory/Chest Respiratory/Chest: Denies cough, dyspnea or sputum Gastrointestinal Gastrointestinal: Denies abdominal pain, constipation, diarrhea, nausea or vomiting Genitourinary Genitourinary ED: Denies dysuria, hematuria or urinary frequency Musculoskeletal Musculoskeletal: Denies arthralgias, myalgias or neck pain Integumentary Denies abscess, Abrasions or rash Neurologic Neurologic: Denies headache(s), paresthesias or weakness Psychiatric Psychiatric: Denies anxiety, depression, suicidal ideation or suicidal thoughts Endocrine Endocrinology: Denies polydipsia or polyuria EXAM Physical Exam Const Vital Signs: 11/27/22 17:40 11/27/22 18:45 11/27/22 19:42 Temperature 97.6 F L Temperature Source Temporal Pulse Rate 106 H 97 Respiratory Rate 18 23 H Respiratory Effort Normal Non-Labored Respiratory Pattern Normal Blood Pressure 131/49 H 140/68 H Blood Pressure Mean 76 92 Pulse Ox 97 100 Oxygen Delivery Method Room Air Room Air Positive well nourished General Appearance ED: NAD HEENT Reports moist mucous membranes Negative for trauma Eyes PERRL and EOMs intact bilaterally General Eye ED: Negative for pale conjunctiva Chest Wall inspection of chest normal Resp normal respiratory effort and clear to auscultation bilaterally Effort and Inspection: Negative for retractions Auscultation: Negative for rales, rhonchi or wheezes Cardio regular rate and regular rhythm Back/Spine no CVA tenderness Extremity normal to inspection Neuro oriented x3 and CN's II-XII intact bilaterally MDM MDM MDM Narrative Medical decision making narrative: Patient presenting with weakness. She has no other symptoms. Differential includes COVID, influenza, pneumonia, UTI, anemia, GI bleed, electrolyte normalities, dehydration. CBC was obtained to assess white blood cell count, hemoglobin, platelets. MP to assess liver function, renal function, electrolytes. High-sensitivity troponin. Chest x-ray to rule out pneumonia. Also to rule out UTI. CBC returned with hemoglobin of 5.7 which is new. Patient denies any black or bloody distantly but after I came back and I discussed this with her she states that she is trying to change her diet becauseshe does have dark stool. Hemoccult positive black tarry stool discussed with Dr. Rao could mended medical admission IV fluids and fusion he would take a consult in the hospital to determine whether he would do it inpatient or outpatient endoscopy. Patient is not anticoagulated. Protonix drip was startedafter 80 mg bolus was given. This is likely upper GI bleed. High- sensitivity troponin 13. Discussed with hospitalist for admission. Patient typed, screened, crossmatched for 2 units and likely will need more. Impression: 1. Upper GI bleed 2. Acute blood loss anemia 3. Weakness Lab Data Labs: Laboratory Results - last 24 hr 11/27/22 11/27/22 11/27/22 19:35 20:15 21:05 WBC 8.5 RBC 2.10 L Hgb 5.7 L* Hct 20.5 L MCV 97.6 MCH 27.1 MCHC 27.8 L RDW Std Deviation 65.2 H RDW Coeff of Joel 18.6 H Plt Count 96 L MPV 13.5 H Immature Gran % (Auto) 1.900 H Neut % (Auto) 89.0 H Lymph % (Auto) 3.0 L Chaves % (Auto) 6.0 Eos % (Auto) 0.0 Baso % (Auto) 0.1 Absolute Neuts (auto) 7.5 Absolute Lymphs (auto) 0.25 L Nucleated RBC % 1.9 Differential Comment SEE COMMENTS Diff Path Review May foll Platelet Estimate MOD DEC RBC Morphology N CHROM Polychromasia RARE Hypochromasia 1+ Anisocytosis 1+ Macrocytosis 1+ Ovalocytes RARE Acanthocytes (Spur) RARE Sodium 138 Potassium 4.3 Chloride 110 H Carbon Dioxide 22.0 Anion Gap 6 BUN 33 H Creatinine 0.73 Estim Creat Clear Calc 47.08 Est GFR (MDRD) Af Amer 102 Est GFR (MDRD) Non-Af 85 BUN/Creatinine Ratio 45.2 H Glucose 238 H Calcium 8.2 L Total Bilirubin 0.70 AST 18 ALT 27 Alkaline Phosphatase 123 H Troponin I High Sens 13 Total Protein 6.4 Albumin 2.6 L Globulin 3.8 Albumin/Globulin Ratio 0.7 L Urine Color Yellow Urine Clarity Clear Urine pH 6.0 Ur Specific [place] 1.020 Urine Protein Negative Urine Glucose (UA) 1000 H Urine Ketones 5 H Urine Occult Blood Negative Urine Nitrite Negative Urine Bilirubin Negative Urine Urobilinogen Normal Ur Leukocyte Esterase 500 H Urine RBC 0 SEEN Urine WBC 10-25 SEEN Ur Squamous Epith Cells 0-5 SEEN Urine Bacteria RARE Urine Mucus 0 SEEN Crossmatch 11/27/22 22:18 WBC RBC Hgb Hct MCV MCH MCHC RDW Std Deviation RDW Coeff of Joel Plt Count MPV Immature Gran % (Auto) Neut % (Auto) Lymph % (Auto) Chaves % (Auto) Eos % (Auto) Baso % (Auto) Absolute Neuts (auto) Absolute Lymphs (auto) Nucleated RBC % Differential Comment Diff Path Review Platelet Estimate RBC Morphology Polychromasia Hypochromasia Anisocytosis Macrocytosis Ovalocytes Acanthocytes (Spur) Sodium Potassium Chloride Carbon Dioxide Anion Gap BUN Creatinine Estim Creat Clear Calc Est GFR (MDRD) Af Amer Est GFR (MDRD) Non-Af BUN/Creatinine Ratio Glucose Calcium Total Bilirubin AST ALT Alkaline Phosphatase Troponin I High Sens Total Protein Albumin Globulin Albumin/Globulin Ratio Urine Color Urine Clarity Urine pH Ur Specific [place] Urine Protein Urine Glucose (UA) Urine Ketones Urine Occult Blood Urine Nitrite Urine Bilirubin Urine Urobilinogen Ur Leukocyte Esterase Urine RBC Urine WBC Ur Squamous Epith Cells Urine Bacteria Urine Mucus Crossmatch See Detail Radiography Diagnostic Testing: Clinical Impression(s) from Imaging Studies Chest X-Ray 11/27/22 19:58 IMPRESSION: Normal x-ray examination of the chest. Electronically Signed: Boogie Tuttle MD at 20:12 EDT Reading Location ID and State: [address] [place] [address] Tel , Service support , Discharge Plan Disposition Disposition: Acute Care Hospital [facility] Discharge Date/Time: 11/27/22 23:31 What to do if you have Problems For any increased pain, shortness of breath, bleeding, nausea or vomiting, chestpain, or any unexpected problems, contact your Primary Care Provider. Call [facility] ([phone]) or report to the closest Emergency Room. Call 911 if necessary. 11/27/22 4606 <Electronically signed by Ronnie Jeff DO> Cosigner Signature (if applicable): CC: Dr. Zeke Chapman MD ~ Signed [facility] Work Phone: 1(263) 332-744802-13-2023 Evaluation + Plan noteExtracted from: Title:Clinical Document Author:CHANDLER YANCEY Date:04/27/22 [facility] ADMISSION HISTORY AN D PHYSICIAL CHIEF COMPLAINT: HISTORY OF PRESENT ILLNESS: REVIEW OF SYSTEMS: ACTIVE PROBLEMS: (11) Ascites (8559148226) Autoimmune hepatitis (2134865439) Cirrhosis of liver (37203899) Esophageal varices (91678985) Essential thrombocythemia (9938285922) Fatigue (355556806) Fibrosis of liver (367582378) Hepatitis A immune (779208765) HTN (hypertension) (6223140925) Lupus (097288494) Osteoporosis (087080654) MEDICATIONS: Active Inpt Meds: None Active PRN Meds: None One Time Meds: None Active IV Meds: Lactated Ringers Infusion 1,000 mL (LR 1,000 mL) Start: 04/27/22 7:51:00 EST, Rate: 50 mL/hr, 04/27/22 7:51:00 EST ALLERGIES: (1) sulfa drug FAMILY HISTORY: SOCIAL HISTORY: PHYSICAL EXAM: VITALS: [id number]N6MbmyAb(kg) 04/27 07:2936.0--8316997FS12/13 54.5 04/27 54.5 24 Hr Tmax: 36.0 [...] LABS: 36hr Labs 04/27 0745 Blood Glucose, Wdkjzofqr24G Blood Glucose, Afgstqoio54V DIAGNOSTICS: IMPRESSION: PLAN: History and Physical Update I have examined the patient; reviewed the H&P and there are no changes to the H&P unless noted below. [facility] 02-13-2023 Hospital Discharge instructions Patient Education 04/27/2022 [...] before eating solid foods. General instructions Take fsfh-lrm-dhnkmug and prescription medicines only as told by [...] 06/21/2016 Document Revised: 05/30/2018 Document Reviewed: 06/21/2016 [employer] Patient Education 2020 [employer]. 04/27/2022 09:53:41 9 - AO Minor Esophagogastroduodenoscopy [...] intestine that attaches to the stomach. This test is used to detect problems in the [...] 05/23/13 Custom Follow Up Care 04/02/2022 14:52:05 With:CHANDLER YANCEY MD Address: [address] [address] [phone] When: Unknown Comments:Follow-up as needed [facility] 02-13-2023 Summary of episode note Discharge Instructions Thank you for allowing [facility] to assist you with your healthcare needs. The following is importantdischarge information regarding your hospital visit. Your Care Team MICHELLE MENSAH, ZEKE Denton Your Diagnosis EGD WITH BANDING What to do next Follow Up Appointments Follow Up with CHANDLER YANCEY MD When Why: Follow-up as needed Where: [address] [place] [address] [phone] Allergies sulfa drug Medications Please ask your [...] before eating solid foods. General instructions Take gyjs-zgw-ewoabpb and prescription medicines only as told by [...] 06/21/2016 Document Revised: 05/30/2018 Document Reviewed: 06/21/2016 [employer] Patient Education 2020 [employer] Esophagogastroduodenoscopy This is an endoscopic procedure [...] intestine that attaches to the stomach. This test is used to detect problems in the [...] to receive it can visit one of [facility] vaccine clinics. There are many vaccine clinic locations within the [facility]. For locations and available times, please visit [email or web address] It is important to note that some COVID mobile vaccine clinics are held outdoors and may be canceled in rainy or stormy conditions. To learn more about pediatric vaccinations (ages 5-11), we invite you to visit the [facility] webpage. [email or web address]/[email or web address]-[email or web address]-Mdp stions.htmlTo learn more about the COVID-19 vaccine, we invite you to visit the [facility] website for a list of frequently asked questions. [email or web address]/nbcgb-Oizevyc-Aijxqxsdfs _[email or web address]-Questions.pdf [facility] [employer] Patient Portal Access Instructions: Stay connected with your healthcare team and access your personal medical information anytime with the [employer] Patient Portal.If you would like a full copy of your medical records, please contact the [facility] Medical Records Department, Wednesday through Wednesday between 8a.m. and 4:30p.m. Please follow the directions below to access the portal: 1.Access the email account you provided upon registration to the [facility].2.Look for an invitation email from [facility].3.Open the email and access the invitation link: Accept Invitation to [employer]4.Fill in the required barrios to create your account. Sign into www.[employer] with your username and password that you [...] you will allow to register on the [employer] [facility] Patient Portal for access to your information. You can also access the [facility] Patient Portal on the [employer]. Simply click on Health Records under [employer] and then click on the [employer] logo. HOW TO SAFELY DISPOSE OF PRESCRIPTION [...] Call your local pharmacy or go to [email or web address] to find one close to you.3.Make use of household items: Use cat litter or old coffee grounds to dispose medications if other options arenot available. Mix your drugs with these household products, seal them in an airtight container andthrow it into the garbage. Call [facility]: [phone] to be sure your drugs can be [...] been reviewed and explained to me and I,VANNESSA PRESTON understand my current condition and have read and understand these discharge instructions. I have received a written copy of the plan/instructions. If I have questions, I am aware that I should contactmy doctor. Patient/Cube Cutter Signature: Date/Time: Relationship to Patient: Witness Name/Signature: Date/Time: [facility]02-13-2023 Anesthesiology Consult note Patient: VANNESSA PRESTON Age: 66 years Sex: Female : 1955 Associated Diagnoses: None Author: PAPITO LORD APRN-JOURNEYMAN PIPE WELDER Assessment Postanesthesia assessment Vitals: Vital signs from [...] by PAPITO LORD on 04/27/2022 09:51 AM [facility]02-13-2023 Note [facility] ADMISSION H[facility] AND PHYSICIAL CHIEF COMPLAINT: HISTORY OF PRESENT ILLNESS: REVIEW OF SYSTEMS: ACTIVE PROBLEMS: (11) Ascites (2818653485) Autoimmune hepatitis (8364095291) Cirrhosis of liver (29755579) Esophageal varices (66180194) Essential thrombocythemia (1274071698) Fatigue (329787773) Fibrosis of liver (286784717) Hepatitis A immune (917240065) HTN (hypertension) (6978062045) Lupus (746889680) Osteoporosis (280145961) MEDICATIONS: Active Inpt Meds: None Active PRN Meds: None One Time Meds: None Active IV Meds: Lactated Ringers Infusion 1,000 mL (LR 1,000 mL) Start: 04/27/22 7:51:00 EST, Rate: 50 mL/hr, 02/13/23 7:51:00 EST ALLERGIES: (1) sulfa drug FAMILY HISTORY: SOCIAL HISTORY: PHYSICAL EXAM: VITALS: AfflaeAicfVAVarfhUWWeJ2LYF1YwvxWk(kg) 04/27 07:2936.0--[id number]/13 54.5 04/27 54.5 24 Hr Tmax: 36.0 [...] LABS: 36hr Labs 04/27 0745 Blood Glucose, Krcfpnuek99F Blood Glucose, Vpcpzquug87P DIAGNOSTICS: IMPRESSION: PLAN: History and Physical Update I have examined the patient; reviewed the H&P and there are no changes to the H&P unless noted below. Digitally Signed by CHANDLER YANCEY MD on 04/27/2022 09:27 AM [facility]02-13-2023 Anesthesiology Consult note Patient: VANNESSA PRESTON Age: 66 years Sex: Female : 1955 Associated Diagnoses: None Author: PAPITO LORD APRN-JOURNEYMAN PIPE WELDER Preoperative Information Anesthesia history Patient's history: negative. [...] Mother Procedure history: CE - Cataract extraction ([id number]). Social History Social & Psychosocial Habits Alcohol [...] Resp Rate 20 br/min (APR 27 07:29) DFJ147 mmHg (APR 27 07:29) DBP67 mmHg (APR 27 07:29) BMI25.12 (APR 27 07:46) Measurements from flowsheet : Measurements 04/27/2022 7:46 EST Height 147.3 cm Admission Weight 54.5 kg [place] Body Weight 40.88 kg BSA Admission 1.47 Body Mass Index 25.12 kg/m2 04/27/2022 7:29 EST Height 147.3 cm Admission Weight 54.5 kg Weight Lbs 119.9 lb [place] Body Weight 40.88 kg Pain assessment: Pain [...] Surgeon SN - CAt - Role Performed Early Childhood Educator Aide 1 04/27/2022 7:46 EST Designated Person #1 We May Share RADHA Selby [phone] Designated Person #1 Relationship Spouse Height 147.3 cm Admission Weight 54.5 kg [place] Body Weight 40.88 kg BSA Admission 1.47 [...] evident Teaching Method Explanation Preferred Written Language Icelandic Preferred Spoken Language Icelandic Information Given by Patient Patient's Current Physicians [...] Weight 54.5 kg Weight Lbs 119.9 lb [place] Body Weight 40.88 kg Temperature Temporal Artery [...] no difficulties Skin Temperature Warm Skin Description [place], Normal for ethnicity, Dry Skin Integrity Intact [...] Void 04/27/2022 6:00 . Assessment and Plan English Society of Anesthesiologists (ASA) physical status classification: Class III. Anesthetic Preoperative Plan Anesthetic technique: MAC. Postoperative pain management: Per surgeon. Risks discussed: nausea, vomiting, sore throat, dental injury, hypotension, allergic reaction, serious complications. Informed consent: signed by patient. Digitally Signed by PAPITO LORD on 04/27/2022 07:54 AM [facility]01-09-2023 Evaluation + Plan noteExtracted from: Title:Clinical Document Author:CHANDLER YANCEY Date:03/23/22 [facility] ADMISSION H[facility]ORY AN D PHYSICIAL CHIEF COMPLAINT: HISTORY OF PRESENT ILLNESS: REVIEW OF SYSTEMS: ACTIVE PROBLEMS: (11) Ascites (6248420196) Autoimmune hepatitis (4844922762) Cirrhosis of liver (99172611) Esophageal varices (82538153) Essential thrombocythemia (7537267076) Fatigue (204070951) Fibrosis of liver (166994608) Hepatitis A immune (997438060) HTN (hypertension) (7091832799) Lupus (944381440) Osteoporosis (681074497) MEDICATIONS: Active Inpt Meds: None Active PRN Meds: None One Time Meds: None Active IV Meds: Lactated Ringers Infusion 1,000 mL (LR 1,000 mL) Start: 03/23/22 7:29:00 EST, Rate: 50 mL/hr, 03/23/22 7:29:00 EST ALLERGIES: (1) sulfa drug FAMILY HISTORY: SOCIAL HISTORY: PHYSICAL EXAM: VITALS: DxvehhXgyoGUFipyoNVJbJ7CJK5WzubTm(kg) 03/23 07:4536.3--804601TB92/09 54.5 24 Hr Tmax: 36.3 at 03/23 [...] changes to the H&P unless noted below. [facility] 01-09-2023 Hospital Discharge instructions Patient Education 03/23/2022 [...] intestine that attaches to the stomach. This test is used to detect problems in the [...] water added (diluted fruit juice). Eat bland, ceog-pv-ogkvwp foods in small amounts as you are able. These foods include bananas, applesauce, rice, lean meats, toast, and crackers. Avoid fluids that contain a lot of sugar or caffeine, such as energy drinks, sports drinks, and soda. Avoid alcohol. Avoid spicy or fatty foods. General instructions Take jylw-jcw-lurpdqj and prescription medicines only as told by your health care provider. Drink enough fluid to keep your urine pale yellow. Wash your hands often using soap and water. If soap and water are not available, use hand link assembler. Make sure that all people in your [...] eating and drinking to prevent dehydration. Take kjrt-txt-drjzdfr and prescription medicines only as told by [...] 03/01/2006 Document Revised: 06/23/2019 Document Reviewed: 08/09/2018 [employer] Patient Education 2020 [employer]. 03/23/2022 09:25:58 Monitored Anesthesia Care, Care After [...] before eating solid foods. General instructions Take ekvh-ydd-srervbj and prescription medicines only as told by [...] 06/21/2016 Document Revised: 05/30/2018 Document Reviewed: 06/21/2016 [employer]um[employer] Patient Education 2020 [employer] Follow Up Care 02/26/2022 13:56:12 With:CHANDLER YANCEY MD Address: [address] [facility] [address] [place] [phone] When: Unknown Comments:in one month [facility] 01-09-2023 Summary of episode note Discharge Instructions Thank you for allowing [facility] to assist you with your healthcare needs. The following is importantdischarge information regarding your hospital visit. Your Care Team MICHELLE MENSAH, ZEKE Dneton What to do next Follow Up Appointments Follow Up with CHANDLER YANCEY MD When Why: as needed Where: [address] [facility] [address] [place] [address] [phone] Allergies sulfa drug Medications Please ask your [...] intestine that attaches to the stomach. This test is used to detect problems in the [...] water added (diluted fruit juice). Eat bland, pnkl-tr-tszepq foods in small amounts as you are able. These foods include bananas, applesauce, rice, lean meats, toast, and crackers. Avoid fluids that contain a lot of sugar or caffeine, such as energy drinks, sports drinks, and soda. Avoid alcohol. Avoid spicy or fatty foods. General instructions Take dcua-ftq-wweytjv and prescription medicines only as told by your health care provider. Drink enough fluid to keep your urine pale yellow. Wash your hands often using soap and water. If soap and water are not available, use hand link assembler. Make sure that all people in your [...] eating and drinking to prevent dehydration. Take zewg-wne-vgwzhzi and prescription medicines only as told by [...] 03/01/2006 Document Revised: 06/23/2019 Document Reviewed: 08/09/2018 [employer] Patient Education 2020 [employer]. Monitored Anesthesia Care, Care After These instructions [...] before eating solid foods. General instructions Take zafj-ehz-jtlolns and prescription medicines only as told by [...] 06/21/2016 Document Revised: 05/30/2018 Document Reviewed: 06/21/2016 [employer]um Patient Education 2020 [employer] Additional Information VACCINATE! IT SAVES LIVES! Members of the community who have not yet received the COVID-19 vaccine and would like to receive it can visit one of [facility] vaccine clinics. There are many vaccine clinic locations within the [facility]. For locations and available times, please visit [email or web address] It is important to note that some COVID mobile vaccine clinics are held outdoors and may be canceled in rainy or stormy conditions. To learn more about pediatric vaccinations (ages 5-11), we invite you to visit the [facility] webpage. [email or web address]://[email or web address]/[email or web address]-Gwjkb-Femocalxlqr-Sbzxyqnjrg-Oxkzk-[email or web address] stions.htmlTo learn more about the COVID-19 vaccine, we invite you to visit the [employer] website for a list of frequently asked questions. https://The Idle Man.[employer]/assets/Rhyzglak-cjk-Lmnfxnap/poxkl-Fyygtyb-Jxwzepdssd _Asked-Questions.pdf [facility] Patient Portal Access Instructions: Stay connected with your healthcare team and access your personal medical information anytime with the [facility] Patient Portal.If you would like a full copy of your medical records, please contact the [facility] Medical Records Department, Wednesday through Wednesday between 8a.m. and 4:30p.m. Please follow the directions below to access the portal: 1.Access the email account you provided upon registration to the [facility].2.Look for an invitation email from [facility].3.Open the email and access the invitation link: Accept Invitation to [facility] [employer].Fill in the required barrios to create your account. Sign into www.[employer] with your username and password that you [...] you will allow to register on the [facility] Patient Portal for access to your information. You can also access the [facility] Patient Portal on the [employer]. Simply click on Health Records under [employer] and then click on the [employer] logo. HOW TO SAFELY DISPOSE OF PRESCRIPTION [...] Call your local pharmacy or go to [email or web address] to find one close to you.3.Make use of household items: Use cat litter or old coffee grounds to dispose medications if other options arenot available. Mix your drugs with these household products, seal them in an airtight container andthrow it into the garbage. Call [facility]: [phone] to be sure your drugs can be [...] been reviewed and explained to me and I,VANNESSA PRESTON understand my current condition and have read and understand these discharge instructions. I have received a written copy of the plan/instructions. If I have questions, I am aware that I should contactmy doctor. Patient/Cube Cutter Signature: Date/Time: Relationship to Patient: Witness Name/Signature: Date/Time: [facility]01-09-2023 Anesthesiology Consult note Patient: VANNESSA PRESTON Age: 66 years Sex: Female : 1955 Associated Diagnoses: None Author: AGUSTÍN COSBY Assessment Postanesthesia assessment Mental status: alert & oriented x 4. Respiratory function: lungs are clear to auscultation. Respiratory support: none. CV function: Normal rate. Cardiovascular support: none. Pain. Nausea status: denies nausea. Postoperative hydration status: within normal limits. Digitally Signed by AGUSTÍN COSBY on 03/23/2022 09:14 AM [facility]01-09-2023 Note [facility] ADMISSION HISTORY AND PHYSICIAL CHIEF COMPLAINT: HISTORY OF PRESENT ILLNESS: REVIEW OF SYSTEMS: ACTIVE PROBLEMS: (11) Ascites (7205729093) Autoimmune hepatitis (9721245688) Cirrhosis of liver (53377398) Esophageal varices (88822454) Essential thrombocythemia (2454537352) Fatigue (846167857) Fibrosis of liver (081251130) Hepatitis A immune (298249462) HTN (hypertension) (6126449255) Lupus (468281742) Osteoporosis (724016470) MEDICATIONS: Active Inpt Meds: None Active PRN Meds: None One Time Meds: None Active IV Meds: Lactated Ringers Infusion 1,000 mL (LR 1,000 mL) Start: 03/23/22 7:29:00 EST, Rate: 50 mL/hr, 03/23/22 7:29:00 EST ALLERGIES: (1) sulfa drug FAMILY HISTORY: SOCIAL HISTORY: PHYSICAL EXAM: VITALS: GlmornSqnuVQXqaqvIMNvI3FOG6UhjtSg(kg) 03/23 07:4536.3--160628HA09/09 54.5 24 Hr Tmax: 36.3 at 03/23 [...] H&P unless noted below. Digitally Signed by CHANDLER YANCEY MD on 03/23/2022 08:55 AM [facility]01-09-2023 Anesthesiology Consult note Patient: VANNESSA PRESTON Age: 66 years Sex: Female : 1955 Associated Diagnoses: None Author: AGUSTÍN COSBY APRN-JOURNEYMAN PIPE WELDER Preoperative Information Time of last food or [...] Mother Procedure history: CE - Cataract extraction ([id number]). Social History Social & Psychosocial Habits Alcohol 03/20/2022 Use: Past Tobacco 03/20/2022 Tobacco Use: Former smoker, quit more . Physical Examination Vital Signs(last 24 hrs) Last Charted BMI25.12 (MAR 23 07:33) Measurements from flowsheet : Measurements 03/23/2022 7:33 EST Height 147.3 cm Admission Weight 54.5 kg [place] Body Weight 40.88 kg BSA Admission 1.47 [...] Person #1 We May Share RADHA Selby [phone] Designated Person #1 Relationship Spouse Height 147.3 cm Admission Weight 54.5 kg [place] Body Weight 40.88 kg BSA Admission 1.47 [...] evident Teaching Method Explanation Preferred Written Language Icelandic Preferred Spoken Language Icelandic Information Given by Patient Patient's Current Physicians Dr. Brewer Discharge To, Anticipated Home with family care Prev Test Positive/Diagnosis w/COVID-19 No Current Quarantine/Isolated any Illness No Any Contact with Sick Animals/Birds No Traveled Anywhere in Last 30 Days No No Personal Devices, Patient Valuables None Admission Note-Nursing Procedure/Therapy Intake . Assessment and Plan English Society of Anesthesiologists (ASA) physical status classification: Class III. Anesthetic Preoperative Plan Anesthetic technique: MAC. Postoperative pain management: Per surgeon. Informed consent: signed by patient. Digitally Signed by AGUSTÍN COSBY on 03/23/2022 07:46 AM [facility]05-23-2022 Chief complaint Narrative - Reported * An interactive audio and video telecommunication system which permits real time communications between the patient (at the originating site) and provider (at the distant site) was utilized to providethis telehealth service. * Verbal consent was requested and obtained from VANNESSA PRESTON on this date, 08/04/2021 11:20 AM , for a telehealth visit. * AUTOIMMUNE HEPATITIS AND CIRRHOSIS OP-Eycixgiecjzcmtpa-Bmzaowgy [address] [facility] Work Phone: Discharge summary Author Chris Chatterjee [facility] November 29, 2022 2:35pm Note Date/Time November 29, 2022 2:31pm [facility] Medical Records Department [facility] [place] [address] Instructions for Home/Discharge Instructions 11/29/22 1430 MR#: [id number] Acct: [id number] Name: VANNESSA PRESTON Rep #:[id number] : 1955 67 From: Chris mar MD PCP: Dr. Zeke Chapman MD Status:ADM IN Discharge Instructions Diet Discharge Diet: Light diet - advance as tolerated Activity Discharge Activity: Return to Normal Activity Dressing / Incision Call your doctor if you observe: Fever of 101 or Higher, Shortness of breath, Dizziness, Fainting spells, Swelling in the ankles, Chest pain and Increased palpitations (irregular heartbeat) Follow Up Care Test Results: Test results from this visit will be discussed in further detail at your follow- up appointment, if applicable. Discharge Plan Admission Admit Date/Time: 11/28/22 08:06 Attending Provider: Chris Chatterjee Primary Care Provider: Zeke Chapman Consulting Providers: Pacheco Shrestha; Tomer Lew Instructions Additional Instructions / Restrictions: Hemoglobin is stable, follow-up as an outpatient with general surgery and GI as well as your PCP to monitor your hemoglobin. Discharge Orders/Prescriptions Prescriptions: New sucralfate 1 gram Tablet 1 g PO 1HR_ACHS 30 Days Qty: 90 0RF pantoprazole [Protonix] 40 mg tablet,delayed release (DR/EC) 40 mg PO BID 30 Days Qty: 60 0RF Continued levothyroxine 50 mcg capsule 300 mcg PO MAIN prednisone 5 mg tablet 5 mg PO DAILY Rx Instructions: 1 and 1/2 tab daily glipizide 5 mg tablet 5 mg PO DAILY Rx Instructions: 2.5 mg daily ezetimibe 10 mg tablet 10 mg PO DAILY carvedilol 6.25 mg tablet 6.25 mg PO BID Rx Instructions: must administer with a meal/food spironolactone 25 MG tablet 25 mg PO BID Qty: 60 0RF ferrous sulfate 325 MG tablet 325 mg PO BIDCM Qty: 60 0RF calcium carbonate-vitamin D3 1 TABLET tablet 1 tab PO BIDCM Qty: 60 0RF azathioprine 50 mg tablet 75 mg PO DAILY Referrals / Follow Up: Pacheco Shrestha MD [Med Staff - Active Staff] - Within 1 Week Zeke Chapman MD [Primary Care Provider] - Within 1 Week Chandler Yancey MD [Non-Staff] - Within 1 Month Disposition Disposition (needs filled in before D/C Order can be placed): Home, Self Care 11/29/221434<Electronically signed by Chris Chatterjee MD>Chris Chatterjee MD CC: Dr. Pacheco Shrestha MD; Dr. Zeke Chapman MD; Dr. Tomer Lew MD ~ Signed [facility] Work Phone: Discharge summary Author Chris Chatterjee [facility] November 29, 2022 2:40pm Note Date/Time November 29, 2022 2:41pm [facility] Medical Records Department [address] [place] [address] [place] [address] Discharge Summary 11/29/221435 MR#: [id number] Acct: [id number] Name: VANNESSA PRESTON Rep #:[id number] : 1955 67 From: Chris mar MD PCP: Dr. Zeke Chapman MD Status:ADM IN [facility] Prov[facility] Date of Admission: 11/28/22 Primary Care Physician: Dr. Zeke Chapman MD Consultations 11/27/22 23:43 Consult: General Surgery Routine Consulting Provider: Pacheco Shrestha Reason for Consult: ABLA EMERGENT Consult: No MD Notified: Yes Date Notified: 11/27/22 Time Notified: 22:40 Method of Notification: ED Physician Initiated Reason For Visit: ACUTE BLOOD LOSS ANEMIA Diagnosis Discharge Diagnosis (1) ABLA (acute blood loss anemia): Status: Acute Code(s): D62 - Acute posthemorrhagic anemia Medications at Discharge Home Medications calcium carbonate 500 mg-vitamin D3 5 mcg (200 unit) tablet 1 tab PO BIDCM #60 tabs 09/23/18 ferrous sulfate 325 mg (65 mg iron) tablet 325 mg PO BIDCM #60 tabs 09/23/18 spironolactone 25 mg tablet 25 mg PO BID #60 tabs 09/23/18 carvedilol 6.25 mg tablet 6.25 mg PO BID 07/15/22 ezetimibe 10 mg tablet 10 mg PO DAILY 07/15/22 glipizide 5 mg tablet 5 mg PO DAILY 07/15/22 levothyroxine 50 mcg capsule 300 mcg PO MAIN thyroid 07/15/22 prednisone 5 mg tablet 5 mg PO DAILY 07/15/22 azathioprine 50 mg tablet 75 mg PO DAILY 11/28/22 pantoprazole 40 mg tablet,delayed release (Protonix) 40 mg PO BID 30 days #60 tabs 11/29/22 sucralfate 1 gram tablet 1 g PO 1HR_ACHS 30 days #90 tabs 11/29/22 Hospital Course Operations None Procedures EGD Summary of Care Provided Minutes Spent on Discharge: 37 Hospital Course: Per HPI: VANNESSA PRESTON, is a 67 F with a significant history of cirrhosis from autoimmune hepatitis who is on daily prednisone presents emergency department with weakness. Because the patient was being weak for about a week and she feltthat she may be having a flareup of her autoimmune hepatitis. 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 She reports having dark stools which she attributed to a change in her diuretics. Patient was found to be severely anemic with hemoglobin of 5.7 Emergency department also reports black Jet tarry stools on rectal examination. Hospital Course: 1. 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 Hemoglobin is 5.7 on admission. General surgery was consulted and they performed an EGD this demonstrated an esophageal ulcer with no bleeding andno stigmata of recent bleeding, there was chronic gastritis with hemorrhage as well as a possible duodenal ulcer. Recheck of hemoglobin on the day of discharge went up from 8.1 to 8.5. I discussed with her the possibility for discharge today and she expressed understanding Beti of is going home and would like to go home today as she feels fine. She did tolerate advancement in her diet. I do recommend that she go home with twice daily Protonix as well as Carafate, these were prescribed to her and I do recommend she follow-up with general surgery as well as her PCP and gastroenterology as an outpatient. Of note she was inappropriately admitted under observation and so the next day she was transition to inpatient with anticipation of a 2 midnight stay however she did recover faster than anticipated especially with the setting of her gastritiswith hemorrhage. 2. Hypertension, hyperlipidemia, type 2 diabetes, hypothyroidism are all chronic medical conditions which complicate her care. Her home medications werecontinued where appropriate Weight / BMI Weight Weight: 118 lb 12.8 oz Body Mass Index (BMI) 24.8 ABG / Lab / Microbiology Data 11/29/22 13:00 11/29/22 06:40 Laboratory: Laboratory Results - last 24 hr 11/28/22 16:10: POC Glucose 80 11/28/22 21:24: POC Glucose 144 H 11/29/22 06:18: POC Glucose 133 H 11/29/22 06:40: WBC 7.4, RBC 2.90 L, Hgb 8.1 L, Hct 27.0 L, MCV 93.1, MCH 27.9, MCHC 30.0 L D, RDW Std Deviation 63.5 H, RDW Coeff of Joel 18.9 H, Plt Count 48 L*, MPV 13.5 H, Immature Gran % (Auto) 0.900, Neut % (Auto) 89.3 H, Lymph % (Auto) 2.6 L, Chaves % (Auto) 6.8, Eos % (Auto) 0.1, Baso % (Auto) 0.3, Absolute Neuts (auto) 6.6, Absolute Lymphs (auto) 0.19 L, Nucleated RBC % 2.0, Diff Path Review July, Platelet Estimate MKD DEC, Sodium 140, Potassium 3.5, Chloride 116 H, Carbon Dioxide 18.0 L, Anion Gap 6, BUN 20 H, Creatinine 0.76, Estim Creat Clear Calc 47.08, Est GFR (MDRD) Af Amer 97, Est GFR (MDRD) Non-Af 80, BUN/Creatinine Ratio 26.2 H, Glucose 141 H, Calcium 7.2 L 11/29/22 11:27: POC Glucose 152 H 11/29/22 13:00: Hgb 8.5 L, Hct 27.2 L Microbiology: Microbiology 11/27/22 22:51 Stool Stool Occult Blood (FREDERICK) - Final Occult Blood Positive 11/27/22 20:15 Nasal Secretion SARS-CoV-2 & FLU Antigen (Rapid) - Final D/C Instructions Discharge Diet: Light diet - advance as tolerated Call your doctor if you observe: Fever of 101 or Higher, Shortness of breath, Dizziness, Fainting spells, Swelling in the ankles, Chest pain and Increased palpitations (irregular heartbeat) Meaningful Use Info Meaningful Use Diagnoses (Choose all that apply): None applicable Discharge Plan Admission Admit Date/Time: 11/28/22 08:06 Attending Provider: Chris Chatterjee Primary Care Provider: Zeke Chapman Consulting Providers: Pacheco Shrestha; Tomer Lew Instructions Additional Instructions / Restrictions: Hemoglobin is stable, follow-up as an outpatient with general surgery and GI as well as your PCP to monitor your hemoglobin. Discharge Orders/Prescriptions Prescriptions: New sucralfate 1 gram Tablet 1 g PO 1HR_ACHS 30 Days Qty: 90 0RF pantoprazole [Protonix] 40 mg tablet,delayed release (DR/EC) 40 mg PO BID 30 Days Qty: 60 0RF Continued levothyroxine 50 mcg capsule 300 mcg PO MAIN prednisone 5 mg tablet 5 mg PO DAILY Rx Instructions: 1 and 1/2 tab daily glipizide 5 mg tablet 5 mg PO DAILY Rx Instructions: 2.5 mg daily ezetimibe 10 mg tablet 10 mg PO DAILY carvedilol 6.25 mg tablet 6.25 mg PO BID Rx Instructions: must administer with a meal/food spironolactone 25 MG tablet 25 mg PO BID Qty: 60 0RF ferrous sulfate 325 MG tablet 325 mg PO BIDCM Qty: 60 0RF calcium carbonate-vitamin D3 1 TABLET tablet 1 tab PO BIDCM Qty: 60 0RF azathioprine 50 mg tablet 75 mg PO DAILY Referrals / Follow Up: Pacheco Shrestha MD [Med Staff - Active Staff] - Within 1 Week Zeke Chapman MD [Primary Care Provider] - Within 1 Week Chandler Yancey MD [Non-Staff] - Within 1 Month Disposition Disposition (needs filled in before D/C Order can be placed): Home, Self Care Charges/Coding Visit Charges Inpatient E&M: 68024 Disch Hosp >30min 11/29/22 1440 <Electronically signed by Chris Chatterjee MD> Cosigner Signature (if applicable): CC: Dr. Zeke Chapman MD; Dr. Chris Chatterjee MD~ Signed [facility] Work Phone: Evaluation + Plan note Future Appointments Appointment Date:09/14/2024 04:00:00 PM Scheduled Provider:LUIS CARLOS RODRIGUEZ MD Location:HEM ONC Appointment Type:HEM ONC OV Follow Up w/ Diagnostic Tests Pending * Copper, Serum 09/07/24 * Zinc, Plasma or Serum 09/07/24 * Actin (Smooth Muscle) Antibody 09/07/24 * ILDA by IFA Screen 09/07/24 * Anti-dsDNA Antibodies 09/07/24 * Antiparietal Cell Antibody 09/07/24 * Cyclic Citrullinated Peptide 09/07/24 * VALENTE Panel 09/07/24 * Mitochondrial (M2) Antibody 09/07/24 * Rheumatoid Factor 09/07/24 * Ribosomal Ab 09/07/24 * Prothrombin Time - Panel 09/07/24 * D-Dimer 09/07/24 * APTT 09/07/24 * Fibrinogen 09/07/24 [facility] Evaluation noteNo assessment information available [facility] Work Phone: Evaluation note* Diagnosis Onset Date Resolution Status Raynaud's disease acute Ulcer of left second toe acu te [facility] Work Phone: Evaluation note* Diagnosis Onset Date Resolution Status Raynaud's disease acute Ulcer of left second toe acu te Raynaud's disease acute Ulcer of left second toe acu te [facility] Work Phone: Evaluation note* Diagnosis Onset Date Resolution Status Raynaud's disease acute Ulcer of left second toe acu te Raynaud's disease acute Ulcer of left second toe acu te ABLA (acute blood loss anemia) acute Diabetes mellitus acute Autoimmune hepatitis chronic Hypertension chronic [facility] Work Phone: Evaluation note* Diagnosis Onset Date Resolution Status Diabetes mellitus acute Autoimmune hepatitis chronic Hypertension chronic ABLA (acute blood loss anemia) resolved ABLA (acute blood loss anemia) resolved [facility] Work Phone: Evaluation note* Diagnosis Onset Date Resolution Status ABLA (acute blood loss anemia) resolved [facility] Work Phone: Evaluation note* Diagnosis Idiopathic esophageal varices with bleeding (CMS/HCC)- Primary Other cirrhosis of liver (CMS/HCC) Autoimmune hepatitis (CMS/HCC) Autoimmune hepatitis Systemic lupus erythematosus, unspecified SLE type, unspecified organ involvement status (CMS/HCC) Rheumatoid arthritis involving both shoulders with positive rheumatoid factor (CMS/HCC) Acquired hypothyroidism Unspecified hypothyroidism Type 2 diabetes mellitus without complication, without long-term current use of insulin (CMS/HCC) documented in this encounter [facility] Work Phone: Evaluation note* Diagnosis Type 2 diabetes mellitus without complication, without long-term current use of insulin (Multi)- Primary Acquired hypothyroidism Unspecified hypothyroidism Autoimmune hepatitis (Multi) Autoimmune hepatitis Other cirrhosis of liver (Multi) Idiopathic esophageal varices with bleeding (Multi) Rheumatoid arthritis involving both shoulders with positive rheumatoid factor (Multi) Systemic lupus erythematosus, unspecified SLE type, unspecified organ involvement status (Multi) Medicare annual wellness visit, subsequent Type 2 diabetes mellitus without complication, without long-term current use of insulin (Multi) Acquired hypothyroidism Unspecified hypothyroidism documented in this encounter [facility] Work Phone: Evaluation note* Diagnosis Onset Date Resolution Status Admit Date Cirrhosis chronic August 25 9:40am [facility] Work Phone: History of Present illness Narrative* [...] * Musculoskeletal: there are no musculoskeletal symptoms. QB-Incqpyvrbiccwtxs-Aijdudgi [address] [facility] Work Phone: History of Present illness Narrative* [...] * Ears: there are no ear symptoms. JA-Gdealupmsgreqxbp-Hogrqwbx [address] [facility] Work Phone: Hospital course Narrative No data available for this section [facility] Hospital Discharge instructions No data available for this section [facility] Progress note No data available for this section [facility] Reason for referral (narrative)* Consultation (Routine) - Authorized Specialty Diagnoses / Procedures Referred By Osiel wilhelm Referred To Contact Primary Care Procedures Follow Up In Primary Care - Established Saritha Coles DO [address] [facility] [place] [address] Referral ID Status Reason Start Date Expiration Date V isits Requested Visits Authorized [id number] Authorized 04/05/2023 04/04/2024 1 1 [facility] Work Phone: Recmck for referral (narrative)No reason for referral information [facility] Work Phone: Summary Purpose Family History Unknown Family Member Name Dates Details Family [...] of diabetes m ellitus: Mother(V18.0, Z83.3) Status:Active Relationship Condition Age at Onset Recorded Date/T neida Unknown Family History?Heart Disease Unknown September 22, 2018 12:36am Family History?No pertinent history Unkno wn September 22, 2018 12:36am Unknown Family Member Name Dates Details Family history of cardiac di sorder: Mother(V17.49, Z82.49) Status:Active Family history of diabetes m ellitus: Mother(V18.0, Z83.3) Status:Active Unknown Family Member Name Dates Details Family history of cardiac di sorder: Mother(V17.49, Z82.49) Status:Active Family history of diabetes m ellitus: Mother(V18.0, Z83.3) Status:Active Relationship Condition Age at Onset Recorded Date/T neida Unknown Family History?Heart Disease Unknown September 21, 2018 11:36pm Family History?No pertinent history Unkno wn September 21, 2018 11:36pm Unknown Family Member Name Dates Details Family history of cardiac di sorder: Mother(V17.49, Z82.49) Status:Active Family history of diabetes m ellitus: Mother(V18.0, Z83.3) Status:Active Relationship Condition Age at Onset Recorded Date/T neida Not Specified Diabetes mellitus Unknown Cardiac disease Unknown Advance Directives Advance Directive Response Recorded Date/ Time Living Will No September 21, 2018 11:11pm Power of Gas Worker No September 21 9 11:11pm Advance Directive Response Recorded Date/ Time Living Will No September 21, 2018 10:11pm Power of Gas Worker No September 21 9 10:11pm Advance Directive Response Recorded Date/ Time Living Will Yes November 28, 2022 1:39am Power of Gas Worker not sure November 1:39am Advance Directive Response Recorded Date/ Time Living Will Yes November 28, 2022 12:39am Power of Gas Worker not sure November 12:39am Advance Directive Response Recorded Date/ Time Do you have a Healthcare Power of Gas Worker? No September 26, 2024 1:46pm Chief Complaint * A telephone visit (audio only) between the patient (at the originating site) and the provider (at the distant site) was utilized to provide this telehealth service. * Verbal consent was requested and obtained from VANNESSA PRESTON on this date, 12/23/2020 10:00 AM , for a telehealth visit. * Follow up autoimmune hepatitis with cirrhosis * A telephone visit (audio only) between the patient (at the originating site) and the provider (at the distant site) was utilized to provide this telehealth service. * Verbal consent was requested and obtained from VANNESSA PRESTON on this date, 12/23/2020 10:00 AM , for a telehealth visit. * Follow up autoimmune hepatitis with cirrhosis Chief Complaint and Reason for Visit Chief Complaint SEE ORDER cirrhosis Chief Complaint cirrhosis OSTEO Chief Complaint CIRRHOSIS Chief Complaint Pain in left toe(s) Chief Complaint Pain in left toe(s) ULCERS AND RAYNAUDS Reason for Visit Raynaud's disease Ulcer of left second toe Chief Complaint 6 WK FU CAD 6 W FU CIRRHOSIS OF LIVER Reason for Visit Raynaud's disease Ulcer of left second toe Raynaud's disease Ulcer of left second toe Chief Complaint 6 WK FU CAD 6 W FU CIRRHOSIS OF LIVER ACUTE BLOOD LOSS ANEMIA ACUTE BLOOD LOSS ANEMIA ACUTE BLOOD LOSS ANEMIA ACUTE BLOOD LOSS ANEMIA ACUTE BLOOD LOSS ANEMIA ACUTE BLOOD LOSS ANEMIA Reason for Visit Raynaud's disease Ulcer of left second toe Raynaud's disease Ulcer of left second toe ABLA (acute blood loss anemia) Diabetes mellitus Autoimmune hepatitis Hypertension Chief Complaint CIRRHOSIS OF LIVER ACUTE BLOOD LOSS ANEMIA ACUTE BLOOD LOSS ANEMIA ACUTE BLOOD LOSS ANEMIA ACUTE BLOOD LOSS ANEMIA ACUTE BLOOD LOSS ANEMIA ACUTE BLOOD LOSS ANEMIA S/P UPPER GI/Acute blood loss anemia CIRRHOSIS Reason for Visit Diabetes mellitus Autoimmune hepatitis Hypertension ABLA (acute blood loss anemia) ABLA (acute blood loss anemia) Chief Complaint S/P UPPER GI/Acute b lood loss anemia CIRRHOSIS Reason for Visit ABLA (acute blood lo ss anemia) Chief Complaint CIRRHOSIS STEROID THERAPY, CIRRHOSIS Chief Complaint Admit Date FASTING April 14, 2024 9 :38am S/O- EVERY 3 MOS June 05, 2024 11: 14am Chief Complaint Admit Date FASTING April 14, 2024 9 :38am S/O- EVERY 3 MOS June 05, 2024 11: 14am SEE ORDER-LABS/ EORDERS FOR DR.FIKE Maria R chaudhary 2024 3:00pm Chief Complaint Admit Date S/O- EVERY 3 MOS June 05, 2024 11: 14am SEE ORDER-LABS/ EORDERS FOR DR.FIKE Maria R chaudhary 2024 3:00pm Establish Care August 25, 2024 9:40 am Reason for Visit Admit Date Cirrhosis August 25, 2024 9:40 am Chief Complaint Admit Date S/O- EVERY 3 MOS June 05, 2024 11: 14am SEE ORDER-LABS/ EORDERS FOR DR.FIKE Maria R chaudhary 2024 3:00pm Establish Care August 25, 2024 9:40 am INT LAB ORDERS August 25, 2024 10:5 9am Reason for Visit Admit Date Autoimmune hepatitis August 25, 2024 9:4 0am Cirrhosis August 25, 2024 9:40 am Pancytopenia August 25, 2024 9:40 am Portal hypertension August 25, 2024 9:40 am Chief Complaint Admit Date S/O- EVERY 3 MOS June 05, 2024 11: 14am SEE ORDER-LABS/ EORDERS FOR DR.FIKE Maria R chaudhary 2024 3:00pm Establish Care August 25, 2024 9:40 am INT LAB ORDERS August 25, 2024 10:5 9am Unspecified cirrhosis of liver August 9:58am Chief Complaint Admit Date S/O- EVERY 3 MOS June 05, 2024 11: 14am SEE ORDER-LABS/ EORDERS FOR DR.FIKE Maria R chaudhary 2024 3:00pm Establish Care August 25, 2024 9:40 am INT LAB ORDERS August 25, 2024 10:5 9am Unspecified cirrhosis of liver August 9:58am DECOMPENSATED CIRRHOSIS W/ASCITES, WEAKN ESS September 26, 2024 5:55pm Reason for Visit Admit Date Autoimmune hepatitis August 25, 2024 9:4 0am Cirrhosis August 25, 2024 9:40 am Pancytopenia August 25, 2024 9:40 am Portal hypertension August 25, 2024 9:40 am Diabetes mellitus September 26, 2024 5:55 pm General weakness September 26, 2024 5:55 pm Hypotension September 26, 2024 5:55 pm Peripheral edema September 26, 2024 5:55 pm Cirrhosis September 26, 2024 5:55 pm Additional Source Comments INFORMATION SOURCE (unrecogn ized section and content) DATE CREATED AUTHOR 08/31/2018 [facility] DATE CREATED AUTHOR AUTHOR'S ORGANIZ ATION 02/07/2020 [facility] DATE CREATED AUTHOR AUTHOR'S ORGANIZ ATION 07/23/2021 [facility] Alyssa Aguirre DATE CREATED AUTHOR AUTHOR'S ORGANIZ ATION 03/30/2022 [facility] DATE CREATED AUTHOR AUTHOR'S ORGANIZ ATION 07/24/2022 [facility] DATE CREATED AUTHOR AUTHOR'S ORGANIZ ATION 09/25/2022 [facility] ([place] DATE CREATED AUTHOR AUTHOR'S ORGANIZ ATION 10/06/2023 [facility] DATE CREATED AUTHOR AUTHOR'S ORGANIZ ATION 11/11/2023 [facility] DATE CREATED AUTHOR AUTHOR'S ORGANIZ ATION 06/22/2024 [facility] DATE CREATED AUTHOR AUTHOR'S ORGANIZ ATION 08/12/2024 [facility] DATE CREATED AUTHOR AUTHOR'S ORGANIZ ATION 09/12/2024 [facility] DATE CREATED AUTHOR AUTHOR'S ORGANIZ ATION 09/17/2024 [facility] Goals (unrecognized section and content) Goals may be documented in a n alternate sectionGoals may be documented in an alternate sectionGoals may be documented in an alternate sectionGoals may be documented in an alternate sectionGoals may be documented in an alternate sectionGoals may be documented in an alternate section No data available for this sectionGoals may be documented in an alternate section No data available for this sectionGoals may be documented in an alternate sectionGoals may be documented in an alternate sectionGoals may be documented in an alternate sectionGoals may be documented in an alternate sectionGoals may be documented in an alternate section No data available for this sectionGoals may be documented in an alternate sectionGoals may be documented in an alternate section No data available for this sectionGoals may be documented in an alternate sectionGoals may be documented in an alternate section No data available for this sectionGoals may be documented in an alternate sectionGoals may be documented in an alternate section Source Comments (unrecognize d section and content) In the event this informatio n is protected by the Federal Confidentiality of Alcohol and Drug Abuse Patient Records regulations: The Federal rules restrict any use of the information to criminally investigate or prosecute any alcohol or drug abuse patient.[facility] the event this information is protected by the Federal Confidentiality of Alcohol and Drug Abuse Patient Records regulations: The Federal rules restrict any use of the information to criminally investigate or prosecute any alcohol or drug abuse patient.[facility] Care Teams (unrecognized sec tion and content) Team Status: Active Member Role Status Dates Dr. Zeke Chapman MD Primary Care Provider Active Team Status: Inactive Member Role Status Dates Dr. Zeke Chapman MD Primary Care Provider, Referrin g Provider Active Dr. Pacheco Shrestha MD Attending Provider Active Team Status: Inactive Member Role Status Dates Dr. Zeke Chapman MD Primary Care Provider Active Dr. Chandler Yancey MD Attending Provider, Referring Provider Active Team Status: Inactive Member Role Status Dates Dr. Zeke Chapman MD Primary Care Provider Active TOYIN PACHECO MD Attending Provider, Referring Provid er Active Team Status: Active Member Role Status Dates Dr. Zeke Chapman MD Primary Care Provider Active Dr. Ronnie Jeff DO Emergency Provider Active Dr. Tomer Lew MD Admit Provider, Attending Provider, Other Provider Active Dr. Pacheco Shrestha MD Other Provider Active Team Status: Active Member Role Status Dates Dr. Zeke Chapman MD Primary Care Provider Active Dr. Ronnie Jeff DO Emergency Provider Active Dr. Tomer Lew MD Admit Provider, Other Provide r Active Dr. Pacheco Shrestha MD Other Provider Active Dr. Chris Chatterjee MD Attending Provider, Other Provider Active Team Status: Active Member Role Status Dates Dr. Zeke Chapman MD Primary Care Provider Active Dr. Ronnie Jeff DO Emergency Provider Active Dr. Tomer Lew MD Admit Provider, Other Provide r Active Dr. Pacheco Shrestha MD Attending Provider, Other Provider Active Dr. Chris Chatterjee MD Referring Provider, Other Provider Active Team Status: Active Member Role Status Dates Dr. Zeke Chapman MD Primary Care Provider Active Dr. Ronnie Jeff DO Emergency Provider Active Dr. Tomer Lew MD Admit Provider, Other Provide r Active Dr. Pacheco Shrestha MD Attending Provider, Other Provider Active Dr. Chris Chatterjee MD Other Provider Active Team Status: Inactive Member Role Status Dates Dr. Zeke Chapman MD Primary Care Provider Active Dr. Ronnie Jeff DO Emergency Provider Active Dr. Tomer Lew MD Admit Provider, Other Provide r Active Dr. Pacheco Shrestha MD Other Provider Active Dr. Chris Chatterjee MD Attending Provider Active Team Status: Inactive Member Role Status Dates Dr. Zeke Chapman MD Primary Care Provider, Referrin g Provider Active AMISHA Monte Attending Provider Active Team Status: Active Member Role Status Dates Dr. Zeke Chapman MD Primary Care Provider Active Dr. Abdiel Coe MD Attending Provider Active AMISHA Monte Referring Provider Active Team Status: Inactive Member Role Status Dates Dr. Zeke Chapman MD Primary Care Provider Active TARA DEAL MD Attending Provider, Referring Provid er Active Team Status: Inactive Member Role Status Dates Dr. Zeke Chapman MD Primary Care Provider Active AMISHA Monte Attending Provider, Referring Provider Active Dr. Shin Govea MD Other Provider Active Team Status: Active Member Role Status Dates Dr. Zeke Chapman MD Primary Care Provider Active Dr. Abdiel Coe MD Attending Provider Active Team Status: Inactive Member Role Status Dates Dr. Zeke Chapman MD Primary Care Provider Active Dr. Shin Govea MD Attending Provider, Referring P gail Active Team Status: Inactive Member Role Status Dates Dr. Zeke Chapman MD Primary Care Provider Active Dr. 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 Zeke Chapman MD Primary Care Provider Active Dr. Shin Govea MD Attending Provider Active Team Status: Active Member Role Status Dates Dr. Zeke Chapman MD Primary Care Provider Active Dr. Abdiel Coe MD Attending Provider Active Dr. Eduar Woo DPM Referring Provider Active Team Status: Inactive Member Role Status Dates Dr. Zeke Chapman MD Primary Care Provider, Referrin g Provider Active AMISHA Flores Attending Provider Active Team Status: Active Member Role Status Dates Dr. Zeke Chapman MD Primary Care Provider Active Dr. Abdiel Coe MD Attending Provider Active AMISHA Flores Referring Provider Active Team Status: Inactive Member Role Status Dates Dr. Zeke Chapman MD Primary Care Provider Active AMISHA Flores Attending Provider, Referring Provid er Active Dr. 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 Automatic Relationship Specialty Start Date End Date Saritha Coles DO [address] [facility] [place] [address] PCP - General Internal Medicine 04/27/23 Saritha Coles DO [address] [facility] [place] [address] PCP - O Medicare Advantage PCP 04/15/23 Team Status: Active Member Role Status Dates Alonzo Covarrubias MD Primary Care Provider Active Team Status: Inactive Member Role Status Dates Alonzo Covarrubias MD Primary Care Provider Active St art: April 14, 2024 End: April 14, 2024 Alonzo Covarrubias MD Attending Provider Active Start : April 14, 2024 End: April 14, 2024 Alonzo Covarrubias MD Referring Provider Active Start : April 14, 2024 End: April 14, 2024 Team Status: Inactive Member Role Status Dates Alonzo Covarrubias MD Primary Care Provider Active St art: June 05, 2024 End: June 05, 2024 TOYIN PACHECO MD Attending Provider Active Star t: June 05, 2024 End: June 05, 2024 TOYIN PACHECO MD Referring Provider Active Star t: June 05, 2024 End: June 05, 2024 Team Status: Inactive Member Role Status Julissa Covarrubias MD Primary Care Provider Active St art: June 19, 2024 End: June 19, 2024 Alonzo Covarrubias MD Other Provider Active Start: 2024 End: June 19, 2024 Dr. Chandler Yancey MD Attending Provider Active Start: June 19, 2024 End: June 19, 2024 Dr. Chandler Yancey MD Referring Provider Active Start: June 19, 2024 End: June 19, 2024 Team Status: Inactive Member Role Status Julissa Covarrubias MD Primary Care Provider Active St art: August 25, 2024 End: August 25, 2024 Alonzo Covarrubias MD Referring Provider Active Start : August 25, 2024 End: August 25, 2024 Dr. Anthony Henry MD Attending Provider Active Start: August 25, 2024 End: August 25, 2024 Team Status: Inactive Member Role Status Julissa Covarrubias MD Primary Care Provider Active St art: August 25, 2024 End: August 25, 2024 Dr. Anthony Henry MD Attending Provider Active Start: August 25, 2024 End: August 25, 2024 Dr. Anthony Henry MD Referring Provider Active Start: August 25, 2024 End: August 25, 2024 Team Status: Active Member Role/Relationship Status Julissa Covarrubias MD Primary Care Provider Active Team Status: Inactive Member Role/Relationship Status Julissa Covarrubias MD Primary Care Provider Active St art: June 05, 2024 End: June 05, 2024 TOYIN PACHECO MD Attending Provider Active Star t: June 05, 2024 End: June 05, 2024 TOYIN PACHECO MD Referring Provider Active Star t: June 05, 2024 End: June 05, 2024 Team Status: Inactive Member Role/Relationship Status Julissa Covarrubias MD Primary Care Provider Active St art: June 19, 2024 End: June 19, 2024 Alonzo Covarrubias MD Other Provider Active Start: 2024 End: June 19, 2024 Dr. Chandler Yancey MD Attending Provider Active Start: June 19, 2024 End: June 19, 2024 Dr. Chandler Yancey MD Referring Provider Active Start: June 19, 2024 End: June 19, 2024 Team Status: Inactive Member Role/Relationship Status Dates Alonzo Covarrubias MD Primary Care Provider Active St art: August 25, 2024 End: August 25, 2024 Alonzo Covarrubias MD Referring Provider Active Start : August 25, 2024 End: August 25, 2024 Dr. Anthony Henry MD Attending Provider Active Start: August 25, 2024 End: August 25, 2024 Team Status: Inactive Member Role/Relationship Status Dates Alonzo Covarrubias MD Primary Care Provider Active St art: August 25, 2024 End: August 25, 2024 Dr. Anthony Henry MD Attending Provider Active Start: August 25, 2024 End: August 25, 2024 Dr. Anthony Henry MD Referring Provider Active Start: August 25, 2024 End: August 25, 2024 Team Status: Inactive Member Role/Relationship Status Dates Alonzo Covarrubias MD Primary Care Provider Active St art: September 06, 2024 End: September 06, 2024 Dr. Anthony Henry MD Attending Provider Active Start: September 06, 2024 End: September 06, 2024 Dr. Anthony Henry MD Referring Provider Active Start: September 06, 2024 End: September 06, 2024 Team Status: Active Member Role/Relationship Status Dates Alonzo Covarrubias MD Primary Care Provider Active St art: September 26, 2024 Dr. Abdiel Vines DO Emergency Provider Active Start: September 26, 2024 Dr. Dileep Gipson DO Admit Provider Active Start: September 26, 2024 Dr. Dileep Gipson DO Attending Provider Active Start: September 26, 2024 Care Team (unrecognized sect ion and content) Care Team Personnel Name: ZEKE CHAPMAN MD Member Role: Primary Care Physician Address: Address: [address] [place] [address] Care Team Related Persons Name: JUDY PRESTON Address: Home [address] [place] [address] Care Team Personnel Name: MICHELLE MENSAH, ZEKE [place] Member Role: Primary Care Physician Address: Address: [address] [place], [place] [id number]- Care Team Related Persons Name: JUDY PRESTON Address: Home [address] [place] [id number] Reason for Visit (unrecogniz ed section and content) Reason Comments 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 [employer] provides no warranty or guarantee of the accuracy or completeness of information in this document.
[2024-09-26] MEDS: CLARIFY ORDER NOTE (22:08)
[2024-09-27] VITALS (9 sets, daily range): BP systolic 91–115; BP diastolic 46–60; PULSE 68–88; RESP 14–20; TEMP 36.6–37.2; O2SAT 98–100
[2024-09-27 05:53] LABS: Hematocrit 26.8 % (37-47); Hemoglobin 8.3 g/dL (12.0-15.0); Mean Corp Hgb Conc 31.0 g/dL (32-36); Mean Corpuscular Volume 82.5 fL (81-99); POSITIVE COUNT YES; RBC Distribution Width CV 16.3 % (11.6-14.6); RBC Distribution Width SD 48.9 fl (35.1-43.9); Red Blood Count 3.25 M/mm3 (4.2-5.4); White Blood Count 3.8 K/mm3 (4.4-11.0)
--- NOTE | 2024-09-27 05:55 | EKG12_ITS ---
Test Reason : Blood Pressure : */* mmHG Vent. Rate : 98 BPM Atrial Rate : 98 BPM P-R Int : 142 ms QRS Dur : 66 ms QT Int : 340 ms P-R-T Axes : 86 -14 19 degrees QTcB Int : 434 ms Sinus rhythm with Premature atrial complexes Low voltage QRS Inferior infarct , age undetermined Cannot rule out Anterior infarct , age undetermined Abnormal ECG Confirmed by Eduar Nguyen ([id number]), assistant production editor GINA PUENTES ([id number]) on 09/28/2024 8:34:17 AM Referred By: Confirmed By: Eduar Nguyen
[2024-09-27 05:56] LABS: Prothrombin Time (Protime)PT. 17.3 SECONDS (11.7-14.9)
[2024-09-27 06:04] LABS: Platelet Count 42 K/mm3 (150-450)
[2024-09-27 06:20] LABS: AST(SGOT) 15 U/L (<=31); Alanine Aminotransfer ALT/SGPT 27 U/L (<=34); Albumin, Serum 2.5 g/dL (3.4-4.8); Alkaline Phosphatase 86 U/L (35-104); Anion Gap 10 (5-15); BUN 28 mg/dL (4-19); BUN/Creat Ratio 41.0 RATIO (10-20); Calcium,Total 8.3 mg/dL (7.6-11.0); Carbon Dioxide 18.6 mmol/L (21.0-32.0); Chloride 104 mmol/L (98-108); Estimated Creatinine Clearance 53.61 ml/min (50-250); Globulin 2.9 g/dL (2.2-4.2); Glucose 135 mg/dL (70-99); Potassium 4.4 mmol/L (3.3-5.1)
[2024-09-27 06:40] LABS: Scan Indicated on CBC? Y/N YES- FLAGS NOTED
--- NOTE | 2024-09-27 07:57 | PN.HOSP_ITS ---
Reason for Visit Chief Complaint: Worsening weakness with abdominal distention Objective Data Objective Data Vital Signs: Vital Signs Temp Pulse Resp BP Pulse Ox O2 Del Method 97.8 F 81 14 98/58 L 100 Room Air 09/27/24 04:00 09/27/24 04:00 09/27/24 04:00 09/27/24 04:00 09/27/24 04:00 09/27/24 07:49 Oxygen Delivery Method Room Air Weight: 127 lb 10.362 oz Body Mass Index (BMI) 26.6 Intake & Output: Intake and Output for Last 24 Hours 09/25/24 09/26/24 09/27/24 23:59 23:59 23:59 Intake Total 2150 / 2150 Output Total 700 / 700 Balance 2150 / 1700 -700 / -700 Lab / Micro Data 09/27/24 04:56 09/27/24 04:56 Labs: Laboratory Results - last 24 hr 09/26/24 13:50: WBC 6.8, RBC 3.48 L, Hgb 8.6 L, Hct 28.4 L, MCV 81.6, MCH 24.7 L , MCHC 30.3 L, RDW Std Deviation 48.9 H, RDW Coeff of Joel 16.4 H, Plt Count 42 L*, Immature Gran % (Auto) 1.800 H, Neut % (Auto) 93.0 H, Lymph % (Auto) 1.5 L, [place] % (Auto) 3.7, Eos % (Auto) 0.0, Baso % (Auto) 0.0, Absolute Neuts (auto) 6.3, Absolute Lymphs (auto) 0.10 L, Nucleated RBC % 0, PT 17.0 H, INR 1.4, APTT 25.2, Sodium 129 L, Potassium 4.8, Chloride 98, Carbon Dioxide 19.5 L, Anion Gap 11, BUN 32 H, Creatinine 0.77, Estim Creat Clear Calc 55.87, Est GFR (MDRD) Non- Af 84, BUN/Creatinine Ratio 41.3 H, Glucose 170 H, Calcium 8.7, Total Bilirubin 1.28, AST 24, ALT 35, Alkaline Phosphatase 99, NT pro BNP II 1345 H, Total Protein 5.9, Albumin 2.8 L, Globulin 3.1, Albumin/Globulin Ratio 0.9, Lipase 139 H 09/26/24 13:58: Lactic Acid 2.1 H* 09/26/24 15:20: Urine Color Yellow, Urine Clarity Clear, Urine pH 6.0, Ur Specific [place] 1.015, Urine Protein 15 H, Urine Glucose (UA) 250 H, Urine Ketones Negative, Urine Occult Blood Negative, Urine Nitrite Negative, Urine Bilirubin Negative, Urine Urobilinogen 1 H, Ur Leukocyte Esterase Negative, Urine RBC 0 SEEN, Urine WBC 0 SEEN, Ur Squamous Epith Cells 0 SEEN, Urine Bacteria 0 SEEN, Urine Mucus 0 SEEN 09/26/24 20:15: Lactic Acid 1.4 09/26/24 22:04: POC Glucose 226 H 09/27/24 04:56: WBC 3.8 L, RBC 3.25 L, Hgb 8.3 L, Hct 26.8 L, MCV 82.5, MCH 25.5 L, MCHC 31.0 L, RDW Std Deviation 48.9 H, RDW Coeff of Joel 16.3 H, Plt Count 42 L*, MPV TNP, PT 17.3 H, INR 1.4, Sodium 132 L, Potassium 4.4, Chloride 104, C arbon Dioxide 18.6 L, Anion Gap 10, BUN 28 H, Creatinine 0.68 L, Estim Creat Clear Calc 53.61, Est GFR (MDRD) Non-Af 95, BUN/Creatinine Ratio 41.0 H, Glucose 135 H, Calcium 8.3, Total Bilirubin 0.77, AST 15, ALT 27, Alkaline Phosphatase 86, Total Protein 5.4 L, Albumin 2.5 L, Globulin 2.9, Albumin/Globulin Ratio 0.9 09/27/24 05:43: POC Glucose 120 H Radiography Diagnostic Testing: Radiology Impression Abdomen/Pelvis CT 09/26/24 14:34 IMPRESSION: 1. Extensive nonocclusive thrombus in the portal venous system. 2. Hepatic cirrhosis. 3. Moderate splenomegaly. 4. Cholelithiasis. 5. Diffuse osteopenia of the visualized spine with numerous compression fractures without retropulsed fragments. 6. There is a large amount of ascites. Note: Findings were called to Dr. Escobar in the [facility] emergency department on the afternoon of 09/26/2024 at 16:50 p.m. Reading Location: [place] [address] Chest X-Ray 09/26/24 14:34 IMPRESSION: Possible bibasilar atelectasis. Reading Location: [place] [address] Physical Exam Narrative Patient has low blood pressure in the 90s. Admitted with generalized weakness for 2 weeks. Tapered to prednisone 30 mg last weekend. No abdominal pain but abdominal distention. Physical exam General: Alert, Oriented x3, Cooperative. Frail and fatigued. BMI 26.7 kg/m? HEENT: Atraumatic, PERRLA, EOMI, Normocephalic. Oral: No Gingival or Mucosal Lesions/ Ulcerations Neck: Supple, No JVD, Negative Carotid Bruits Chest wall/Lungs: Air entry diminished in bilateral lung bases. No crepitation/rhonchi Cardiovascular: Regular rate and rhythm, Normal S1,S2, No M/G/R Abdomen: Bowel Sounds Present, Soft, Non Tender, distended with ascites, fluid thrill present. : No dysuria. No renal angle tenderness. No suprapubic tenderness. Extremities: Minimal to no edema, Capillary Refill Less than 3 Seconds Skin: No rashes, No breakdown Musculoskeletal: No Tenderness to Palpation of Joints or Extremities. Muscle strength 4/5 at knees and hip joints Neurological: Cranial nerves II-XII grossly intact, DTR 2+/4. No acute focal neurological deficit. Psych/Mental Status: Flat affect Assessment & Plan Assessment/Plan (1) Decompensated cirrhosis: (2) Ascites: PLAN: Plan Patient is a 69-year-old female who presented [facility] ED on 09/26/2024 with worsening weakness and abdominal distention. 1. 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 Admit under inpatient status to PCU. GI consulted. 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 Recent CPT score 7, class B. MELD sodium score 7, MELD 3.0 is 9 with with TB 0.64, serum sodium 136, INR 1.1, albumin 3.5 and serum creatinine 0.94 is 9 as per labs of 06/19/2024 Discussed with the patient's daughter and . CT abdomen with and without IV contrast reported liver cirrhotic, nonocclusive thrombus in main portal vein, left portal vein, SMV and splenic vein. Multiple gallstones. Moderate splenomegaly with spleen size 17.5 cm. Continue spironolactone and midodrine. Discontinue azathioprine as patient has decompensated cirrhosis. Continuing steroid 2. Pancytopenia with severe anemia and thrombocytopenia with acute on chronic upper GI bleed: Hemoglobin 8.3/hematocrit 26.8%. Platelet count 42K. WBC is low normal 3.8K. For now patient is decompensated with increased portal hypertension. As per , she gets melena for weeks. Dr. Cintron consulted for EGD. She had 4 banding's done by Dr. Dinh in June 2024 which resulted into hypotension dizziness therefore she was reluctant for EGD. I talked to the patient's family that she is not fit for outpatient EGD. 3. 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 She gets blackish stools once per week. 4. Hypotension and hypervolemia third volume spacing with severe hypoalbuminemia: IV albumin 25 g every 8 hourly total 3 bags ordered. Patient had paracentesis of 1900 mL yellow-colored fluid. Fluid ordered for analysis including culture. GI bleed and ascites puts high risk for SBP, encephalopathy and HRS and liver decompensation. On IV ceftriaxone. Continue IV PPI twice daily. Acute on chronic debility ? PT/OT/case management consulted. Patient lives at home with , typically has fairly good functional status at baseline. Suspect weakness is primarily due to decompensated cirrhosis as above. Appreciate therapy recommendations. 3. Hypertension/hyperlipidemia ? continue home Coreg at reduced dose of 3.125 mg twice daily for secondary portal hypertension prophylaxis. Continue home Zetia. 4. Hyponatremia ? Sodium 129 on admit, baseline 136-140. Suspect due to decompensated cirrhosis above. Sodium 132. Lactic acidosis 2.1-1.4. 5. Type 2 diabetes mellitus ? Glucose 170 on admit. Last A1c 7.4% on 08/25. Will treat with sliding scale insulin with meals for now, adjust as needed. Hold home glipizide. DVT prophylaxis: SCDs CODE STATUS: Full code, verified Laboratory Results 09/26/24 13:50: WBC 6.8, RBC 3.48 L, Hgb 8.6 L, Hct 28.4 L, MCV 81.6, MCH 24.7 L , MCHC 30.3 L, RDW Std Deviation 48.9 H, RDW Coeff of Joel 16.4 H, Plt Count 42 L*, Immature Gran % (Auto) 1.800 H, Neut % (Auto) 93.0 H, Lymph % (Auto) 1.5 L, [place] % (Auto) 3.7, Eos % (Auto) 0.0, Baso % (Auto) 0.0, Absolute Neuts (auto) 6.3, Absolute Lymphs (auto) 0.10 L, Nucleated RBC % 0, PT 17.0 H, INR 1.4, APTT 25.2, Sodium 129 L, Potassium 4.8, Chloride 98, Carbon Dioxide 19.5 L, Anion Gap 11, BUN 32 H, Creatinine 0.77, Estim Creat Clear Calc 55.87, Est GFR (MDRD) Non- Af 84, BUN/Creatinine Ratio 41.3 H, Glucose 170 H, Calcium 8.7, Total Bilirubin 1.28, AST 24, ALT 35, Alkaline Phosphatase 99, NT pro BNP II 1345 H, Total Protein 5.9, Albumin 2.8 L, Globulin 3.1, Albumin/Globulin Ratio 0.9, Lipase 139 H 09/26/24 13:58: Lactic Acid 2.1 H* 09/26/24 15:20: Urine Color Yellow, Urine Clarity Clear, Urine pH 6.0, Ur Specific [place] 1.015, Urine Protein 15 H, Urine Glucose (UA) 250 H, Urine Ketones Negative, Urine Occult Blood Negative, Urine Nitrite Negative, Urine Bilirubin Negative, Urine Urobilinogen 1 H, Ur Leukocyte Esterase Negative, Urine RBC 0 SEEN, Urine WBC 0 SEEN, Ur Squamous Epith Cells 0 SEEN, Urine Bacteria 0 SEEN, Urine Mucus 0 SEEN 09/26/24 20:15: Lactic Acid 1.4 09/26/24 22:04: POC Glucose 226 H 09/27/24 04:56: WBC 3.8 L, RBC 3.25 L, Hgb 8.3 L, Hct 26.8 L, MCV 82.5, MCH 25.5 L, MCHC 31.0 L, RDW Std Deviation 48.9 H, RDW Coeff of Joel 16.3 H, Plt Count 42 L*, MPV TNP, PT 17.3 H, INR 1.4, Sodium 132 L, Potassium 4.4, Chloride 104, Carbon Dioxide 18.6 L, Anion Gap 10, BUN 28 H, Creatinine 0.68 L, Estim Creat Clear Calc 53.61, Est GFR (MDRD) Non-Af 95, BUN/Creatinine Ratio 41.0 H, Glucose 135 H, Calcium 8.3, Total Bilirubin 0.77, AST 15, ALT 27, Alkaline Phosphatase 86, Total Protein 5.4 L, Albumin 2.5 L, Globulin 2.9, Albumin/Globulin Ratio 0.9 09/27/24 05:43: POC Glucose 120 H Clinical Impression(s) from Imaging Studies Abdomen/Pelvis CT 09/26/24 14:34 IMPRESSION: 1. Extensive nonocclusive thrombus in the portal venous system. 2. Hepatic cirrhosis. 3. Moderate splenomegaly. 4. Cholelithiasis. 5. Diffuse osteopenia of the visualized spine with numerous compression fractures without retropulsed fragments. 6. There is a large amount of ascites. Note: Findings were called to Dr. Escobar in the [facility] emergency department on the afternoon of 09/26/2024 at 16:50 p.m. Reading Location: [place] [address] Chest X-Ray 09/26/24 14:34 IMPRESSION: Possible bibasilar atelectasis. Reading Location: [place] [address] Charges/Coding Visit Charges Inpatient E&M: 77363 Subs Hosp L3
[2024-09-27] MEDS: Pantoprazole Sodium 40 MG in 0.9% Normal Saline (100mL MB+) 100 ML 330 MG IV ×2 (09:59→20:58)
--- NOTE | 2024-09-27 10:55 | CASEMGMT ---
RN CM Face to Face with patient for initial transition planning/care coordination assessment. RN CM introduced self and role at [facility]. Patient lying in bed, alert and oriented. Patient willing to participate in assessment and is able to answer all questions appropriately. Care providers, pharmacy, and demographics verified. Strata: 2 PCP: [facility] Specialists: MISSY Henry Pharmacy: [facility] Insurance: [facility] [facility] Prescription Benefit: yes Living Will/HPOA: yes, Bal Perez LNOK: , daughter Living Arrangements: Patient lives with in a single story home with 3 steps and railing to enter the home. Family assists with ADLs Transportation: DME/HHC: Patient has tub bench, raised toilet, and walker. No previous HHC or SNF Patient wishes to discharge home with HHC, CM to provide list. Patient states he has no further needs or concerns at this time. CM to follow for discharge planning needs that may arise. Disposition Plan: Patient to discharge home with HHC, family support, and follow-up plans in place. Marianne MO, RN, CM
--- NOTE | 2024-09-27 14:53 | FLU_PTH ---
PATIENT: JAKY PRESTON LOC: [facility] U#:[id number] AGE/SX: 69/F ROOM: [facility] RE09/26/[address]: Dr. Anthony Henry MD : [id number] BED: 1 DIS: 09/30/2024 SPEC #: [id number] RECD: 09/27/24 15:33 STATUS: KULWANT HERNANDEZ #: [id number] LATHA: 09/27/24 14:[address]: Anthony Henry DEPT: CYTOLOGY RECD BY: Caren Sawant ENTERED: 09/28/24 09:54 SP TYPE: Fluid OTHR DR: DO Alonzo Cortez MD Tissues: Abdomen, NOS Procedures: Special Stain Group II Surgery Specimen Level IV Cytospin Fluid HEADER OPERATION: Ultrasound-guided Paracentesis PRE-OP DIAGNOSIS: Ascites - LLQ TISSUE SUBMITTED: Q Ascites Fluid for Cytology DIAGNOSIS CYTOLOGY A. Abdomen, LLQ, ascites, cytospin and cellblock, paracentesis: - No malignant cells identified. - Scant cellularity. CYTOLOGY STUDY Slides are reviewed. CYTOLOGY GROSS Received is 80 ml of light-yellow cloudy fluid labeled with the patient's name and and designated per the requisition as LLQ Submitted for cytology and cell block preparation. CPT: 36688,88844
[2024-09-27] MEDS: Lidocaine 2% (20 ml mdv) 20 ML Vial INFILT (15:00)
--- NOTE | 2024-09-27 15:21 | PCM.OPRPT ---
Problems Associated Problem List Diagnoses (1) Ascites: (2) Decompensated cirrhosis: Multi Select Codes Radiology Radiology US Procedures: 32926 Paracentesis Operative Report (Standard) Operative Information Date of Procedure: 09/27/24 Pre-Operative Diagnosis: Ascites Post-Operative Diagnosis: Ascites Surgery/Procedure Performed: Ultrasound-guided paracentesis cardiac technician: No Type of Anesthesia: Local Procedure Start Time: 14:55 Procedure Stop Time: 15:12 Select all DRAINS/GRAFTS/IMPLANTS that apply: None Estimated Blood Loss: 0 Specimen collected: Yes Description of specimen(s) removed: 100 mL of clear yellow fluid Description of surgery: PROCEDURE: Ultrasound guided paracentesis ORDERING PROVIDER: Dr. iGpson INDICATION: Female, 69 years old. Ascites. PROVIDER: MALATHI Santana TECHNIQUE: The risks, benefits, and alternatives to the procedure were explained to the patient. The specific risks of bleeding, infection, and damage to bowel were detailed and accepted. Witnessed informed consent was obtained. Coagulation studies were reviewed. Patient is not currently on any blood thinning medications. The abdomen was ultrasonographically surveyed. An appropriate pocket of fluid was identified in the left lower quadrant. The skin was prepped with chlorhexidine and sterile field established. 2% lidocaine was used for local anesthetic. Using ultrasound guidance, the peritoneal cavity was accessed with a 5-Estonian paracentesis needle/catheter system. The trocar was removed. A total of 1900 ml of clear yellow colored fluid was removed from the peritoneal cavity. A sample was sent to the lab for diagnostic purposes. The catheter was removed and a sterile dressing was applied. The procedure was well tolerated without any immediate complications. IMPRESSION: Successful ultrasound guided paracentesis with left lower quadrant abdominal access site. Surgical Findings: None Complications Complications: No
[2024-09-27 15:44] LABS: Cytology, Body Fluid / CSF SEE PATHOLOGY REPORT
--- NOTE | 2024-09-27 16:18 | EX.PCM.CON.G ---
HPI Consult Data Date of Consult: 09/27/24 HPI Narrative Reason for Consultation: Ascites and anemia HPI Narrative: JAKY PERSTON, is a 69 F who presented to [facility] ED on 09/26/2024 with worsening weakness with abdominal distention. She has a history of autoimmune hepatitis with cirrhosis recently started on medical therapy. Her cirrhosis is complicated by history of jaundice and encephalopathy. She also developed esophageal varices and was banded in the past by Dr. Chandler Dinh. She has also noted worsening abdominal distention over the past few weeks. In the ED, she was noted to be mildly hypotensive and mildly tachycardic. Hemoglobin 8.6, down from 9.3 on 09/06 and 11.4 on 08/25. Lactate 2.1. INR 1.4. Her current MELD is 20. CT abdomen pelvis showed a large amount of ascites, cirrhosis and an extensive nonocclusive thrombus in the portal venous system. She reports experiencing worsening abdominal pain over the past several days, described as a dull ache in her upper right abdomen, accompanied by occasional nausea and decreased appetite. She denies fever or chills. She reports no new symptoms of variceal bleeding, such as hematemesis or melena, but has a history of esophageal varices for which she takes beta-blockers. She expresses concern about her prognosis and asks about available treatment options.? [facility] Medical History (Updated 09/27/24 @ 16:[address] Sandoval Friend, DO) History of immunosuppression therapy History of steroid therapy Post-menopausal Ulcer Hoarseness High cholesterol History of stress test Anemia Hypothyroidism Rheumatoid arthritis Osteoporosis GI bleed Hepatitis Former smoker Non-smoker Irregular heart beat Hypertension Home Medications ?Medication ?Instructions ?Recorded ?Last Taken ?Type calcium 500 mg (as 1 tab PO BIDCM supplement #60 tabs 09/23/18 Unknown Rx carbonate)-vitamin D3 5 mcg (200 unit) tablet carvedilol 6.25 mg tablet 6.25 mg PO BID blood pressure 07/15/22 Unknown History ezetimibe 10 mg tablet 10 mg PO DAILY 07/15/22 Unknown History glipizide 5 mg tablet 5 mg PO BID diabetes 07/15/22 Unknown History sucralfate 1 gram tablet 1 g PO 1HR_ACHS 30 days #90 tabs 11/29/22 Unknown Rx azathioprine 50 mg tablet 50 mg PO QDAY 1 month #30 tabs 08/25/24 Unknown Rx ferrous sulfate 325 mg (65 mg 325 mg PO Q OTHER DAY supplement 08/25/24 Unknown Rx iron) tablet #60 tabs pantoprazole 40 mg tablet,delayed 40 mg PO BID 30 days #60 tabs 08/25/24 Unknown Rx release (Protonix) ursodiol 500 mg tablet 500 mg PO Q8H 1 month #90 tabs 08/28/24 Unknown Rx prednisone 10 mg tablet 10 mg PO DAILY 2 weeks #14 tabs 09/18/24 Unknown Rx prednisone 5 mg tablet 5 mg PO DAILY 1 month #30 tabs 09/18/24 Unknown Rx spironolactone 25 mg tablet 50 mg PO DAILY diuretic 09/26/24 Unknown History Allergy/AdvReac Type Severity Reaction Status Date / Time Sulfa (Sulfonamide Allergy Severe Swelling Verified 09/26/24 13:41 Antibiotics) Family History Other Diabetes Heart disease Surgical History History of esophagogastroduodenoscopy (EGD) History of cataract surgery H/O section Social History Smoking Status: Former smoker Physical Exam Const alert, oriented x3, no apparent distress and average body habitus General Appearance: cooperative and comfortable HEENT normocephalic, head/scalp atraumatic, hearing grossly normal bilaterally, nasal mucous membranes and turbinates normal and moist oral mucous membranes Eyes PERRL, EOMs intact bilaterally and conjunctivae normal Neck full ROM Chest inspection of chest normal Resp normal respiratory effort, normal air movement, no use of accessory muscles and clear to auscultation bilaterally Cardio no murmurs and peripheral pulses 2+ throughout Cardio Narrative: Tachycardic, regular rhythm. Back/Spine normal ROM Extremity full ROM Extremity Narrative: +1-2 lower extremity pitting edema noted. Skin no rashes or lesions noted Psych mental status grossly normal Lab / Micro Data 09/27/24 04:56 09/27/24 04:56 Labs: Laboratory Results - last 24 hr 09/26/24 20:15: Lactic Acid 1.4 09/26/24 22:04: POC Glucose 226 H 09/27/24 04:56: WBC 3.8 L, RBC 3.25 L, Hgb 8.3 L, Hct 26.8 L, MCV 82.5, MCH 25.5 L, MCHC 31.0 L, RDW Std Deviation 48.9 H, RDW Coeff of Joel 16.3 H, Plt Count 42 L*, MPV TNP, PT 17.3 H, INR 1.4, Sodium 132 L, Potassium 4.4, Chloride 104, Carbon Dioxide 18.6 L, Anion Gap 10, BUN 28 H, Creatinine 0.68 L, Estim Creat Clear Calc 53.61, Est GFR (MDRD) Non-Af 95, BUN/Creatinine Ratio 41.0 H, Glucose 135 H, Calcium 8.3, Total Bilirubin 0.77, AST 15, ALT 27, Alkaline Phosphatase 86, Total Protein 5.4 L, Albumin 2.5 L, Globulin 2.9, Albumin/Globulin Ratio 0.9 09/27/24 05:43: POC Glucose 120 H 09/27/24 12:08: POC Glucose 109 H Imaging Radiology Impression Abdomen/Pelvis CT 09/26/24 14:34 IMPRESSION: 1. Extensive nonocclusive thrombus in the portal venous system. 2. Hepatic cirrhosis. 3. Moderate splenomegaly. 4. Cholelithiasis. 5. Diffuse osteopenia of the visualized spine with numerous compression fractures without retropulsed fragments. 6. There is a large amount of ascites. Note: Findings were called to Dr. Escobar in the [facility] emergency department on the afternoon of 09/26/2024 at 16:50 p.m. Reading Location: [place] [address] Chest X-Ray 09/26/24 14:34 IMPRESSION: Possible bibasilar atelectasis. Reading Location: [place] [address] Assessment & Plan Assessment/Plan (1) Ascites: (2) Decompensated cirrhosis: (3) Peripheral edema: (4) Portal hypertension: (5) Cirrhosis: QUALIFIERS: Hepatic cirrhosis type: unspecified hepatic cirrhosis Ascites presence: with ascites Qualified Code(s): K74.60 - Unspecified cirrhosis of liver; R18.8 - Other ascites (6) Anemia: (7) Thrombocytopenia: PLAN: CT/Abdomen/Pelvis W IV Cont ONLY IMPRESSION: 1. Extensive nonocclusive thrombus in the portal venous system. 2. Hepatic cirrhosis. 3. Moderate splenomegaly. 4. Cholelithiasis. 5. Diffuse osteopenia of the visualized spine with numerous compression fractures without retropulsed fragments. 6. There is a large amount of ascites. The patient is a 69-year-old woman with known cirrhosis, who now presents with recent onset portal vein thrombosis. Her symptoms are consistent with the diagnosis of PVT. Imaging confirms partial occlusion of the main portal vein and superior mesenteric vein extension. There is no evidence of bowel ischemia or underlying malignancy. The presence of PVT increases the risk of complications such as hepatic decompensation, ascites, and variceal bleeding. Anticoagulation is indicated given the recent onset and >50% occlusion.? Plan EGD tomorrow then initiate anticoagulation:?Recommend starting enoxaparin and transitioning to a direct oral anticoagulant (DOAC) or warfarin for long-term anticoagulation, considering the patient's preference and Mpior-[id number] class. Monitor for complications:?Continue monitoring for signs and symptoms of portal hypertension, variceal bleeding, hepatic decompensation, and possible side effects of anticoagulation. Imaging follow-up:?Repeat cross-sectional imaging (CT or MRI) every 3 months to assess response to anticoagulation and evaluate for resolution or progression of the thrombus. Consider TIPS:?If anticoagulation fails to achieve clot regression or if the patient develops significant complications of portal hypertension, consider a transjugular intrahepatic portosystemic shunt (TIPS) procedure due to significant thrombocytopenia. Charges/Coding Visit Charges Inpatient E&M: 75137 Init Hosp L3
[2024-09-27 16:22] LABS: Body Fluid Mononuclear WBC # 0.022 10^3/uL; Body Fluid Mononuclear WBC % 52.4 %; Body Fluid Polynuclear WBC # 0.020 10^3/uL; Body Fluid Polynuclear WBC % 47.6 %; White Blood Count/Body Fluid 0.042 10^3/uL
[2024-09-27 16:42] LABS: Glucose, Body Fluid 143 mg/dL (Not Establ.)
[2024-09-27] MEDS: Calcium Carb/Vitamin D 1 TABLET Tablet PO (19:02)
[2024-09-27 21:32] LABS: Auto B Fluid Analyzer BKGD Ct COUNTS W/IN LIMITS (W/IN LIMITS)
[2024-09-27 21:33] LABS: Color/Body Fluid LT YEL; Source- Body Fluid PARACENTESIS
[2024-09-27 21:34] LABS: Appearance/Body Fluid CLEAR
[2024-09-27 21:36] LABS: Red Cell Count/Body Fluid 525 /mm3
[2024-09-27 21:37] LABS: Body Fluid QC Type(s) BF2Q
[2024-09-27 22:15] LABS: Neutrophil (Segs) 49 %; Other Cell Type/BF 27 %
[2024-09-28] VITALS (13 sets, daily range): BP systolic 81–113; BP diastolic 46–64; PULSE 58–97; RESP 14–16; TEMP 36.2–37; O2SAT 94–100; BMI 26.8
[2024-09-28 06:01] LABS: Hematocrit 27.7 % (37-47); Hemoglobin 8.2 g/dL (12.0-15.0); Immature Granulocytes Count 0.070 X10^3/uL (0.0-0.0); Mean Corp Hgb Conc 29.6 g/dL (32-36); Mean Corpuscular Volume 85.0 fL (81-99); Mean Platelet Vol. 12.9 fl (6.2-12.0); NRBC Flagged by Analyzer 0 % (0-5); POSITIVE COUNT YES; POSITIVE DIFFERENTIAL YES; Platelet Count 42 K/mm3 (150-450); RBC Distribution Width CV 16.5 % (11.6-14.6); RBC Distribution Width SD 51.2 fl (35.1-43.9); Red Blood Count 3.26 M/mm3 (4.2-5.4); White Blood Count 4.3 K/mm3 (4.4-11.0)
[2024-09-28 06:20] LABS: Prothrombin Time (Protime)PT. 17.2 SECONDS (11.7-14.9)
[2024-09-28 06:32] LABS: AST(SGOT) 15 U/L (<=31); Alanine Aminotransfer ALT/SGPT 24 U/L (<=34); Albumin, Serum 2.5 g/dL (3.4-4.8); Alkaline Phosphatase 85 U/L (35-104); Anion Gap 11 (5-15); BUN 32 mg/dL (4-19); BUN/Creat Ratio 44.8 RATIO (10-20); Bilirubin, Direct 0.53 mg/dL (0.00-0.30); Calcium,Total 8.3 mg/dL (7.6-11.0); Carbon Dioxide 17.5 mmol/L (21.0-32.0); Chloride 104 mmol/L (98-108); Estimated Creatinine Clearance 53.61 ml/min (50-250); Globulin 2.6 g/dL (2.2-4.2); Glucose 189 mg/dL (70-99); Potassium 4.7 mmol/L (3.3-5.1)
--- NOTE | 2024-09-28 08:37 | PCM.PN.HOSP ---
Reason for Visit Chief Complaint: Worsening weakness with abdominal distention Objective Data Objective Data Vital Signs: Vital Signs Temp Pulse Resp BP Pulse Ox O2 Del Method 97.2 F L 84 14 102/58 L 100 Room Air 09/28/24 03:35 09/28/24 03:35 09/28/24 03:35 09/28/24 03:35 09/28/24 03:35 09/28/24 04:00 Oxygen Delivery Method Room Air Weight: 127 lb 10.362 oz Body Mass Index (BMI) 26.6 Intake & Output: Intake and Output for Last 24 Hours 09/26/24 09/27/24 09/28/24 23:59 23:59 23:59 Intake Total 2150 / 2150 250 / 300 50 / 50 Output Total 2600 / 2600 0 / 0 Balance 2150 / 1700 -2350 / -2300 50 / 50 Lab / Micro Data 09/28/24 05:41 09/28/24 05:41 Labs: Laboratory Results - last 24 hr 09/27/24 12:08: POC Glucose 109 H 09/27/24 14:53: Fluid Source PARACENTESIS, Fluid Color LT YEL, Fluid Appearance CLEAR, Fluid WBC 0.042, Fluid RBC 525, Fluid Tot Cell Count 0.050 H, Fld Polynuclear WBCs # 0.020, Fld Polynuclear WBCs % 47.6, Fluid Mononuclear WBCs 0.022, Fld Mononuclear WBCs % 52.4, Fluid Neutrophils 49, Fluid Lymphocytes 8, Fluid Monocytes 5, Fluid Macrophages 11, Fluid Other Cells 27, Fl Pathologist Comment May follow, Fluid Glucose 143, Fluid Comment 2 SEE COMMENT 09/27/24 16:32: POC Glucose 169 H 09/27/24 21:02: POC Glucose 186 H 09/28/24 05:41: WBC 4.3 L, RBC 3.26 L, Hgb 8.2 L, Hct 27.7 L, MCV 85.0, MCH 25.2 L, MCHC 29.6 L, RDW Std Deviation 51.2 H, RDW Coeff of Joel 16.5 H, Plt Count 42 L*, MPV 12.9 H, Immature Gran % (Auto) 1.600 H, Neut % (Auto) 90.1 H, Lymph % (Auto) 4.4 L, [place] % (Auto) 3.7, Eos % (Auto) 0.0, Baso % (Auto) 0.2, Absolute Neuts (auto) 3.9, Absolute Lymphs (auto) 0.19 L, Nucleated RBC % 0, Sodium 133, Potassium 4.7, Chloride 104, Carbon Dioxide 17.5 L, Anion Gap 11, BUN 32 H, Creatinine 0.72, Estim Creat Clear Calc 53.61, Est GFR (MDRD) Non-Af 91, BUN/Creatinine Ratio 44.8 H, Glucose 189 H, Calcium 8.3, Total Bilirubin 0.79, Direct Bilirubin 0.53 H, AST 15, ALT 24, Alkaline Phosphatase 85, Total Protein 5.1 L, Albumin 2.5 L, Globulin 2.6 09/28/24 05:55: PT 17.2 H, INR 1.4 09/28/24 06:41: POC Glucose 186 H Physical Exam Narrative Seen and examined BP 98/54, heart rate 78/min. Looks slightly better than yesterday. Admitted with generalized weakness for 2 weeks. Tapered to prednisone 30 mg last weekend. No abdominal pain but abdominal distention. Physical exam General: Alert, Oriented x3, Cooperative. Frail and fatigued. BMI 26.7 kg/m? HEENT: Atraumatic, PERRLA, EOMI, Normocephalic. Oral: No Gingival or Mucosal Lesions/ Ulcerations Neck: Supple, No JVD, Negative Carotid Bruits Chest wall/Lungs: Air entry diminished in bilateral lung bases. No crepitation/rhonchi Cardiovascular: Regular rate and rhythm, Normal S1,S2, No M/G/R Abdomen: Bowel Sounds Present, Soft, Non Tender, distended with ascites, fluid thrill present. : No dysuria. No renal angle tenderness. No suprapubic tenderness. Extremities: Minimal to no edema, Capillary Refill Less than 3 Seconds Skin: No rashes, No breakdown Musculoskeletal: No Tenderness to Palpation of Joints or Extremities. Muscle strength 4/5 at knees and hip joints Neurological: Cranial nerves II-XII grossly intact, DTR 2+/4. No acute focal neurological deficit. Psych/Mental Status: Flat affect Assessment & Plan Assessment/Plan (1) Decompensated cirrhosis: (2) Ascites: PLAN: Plan Patient is a 69-year-old female who presented [facility] ED on 09/26/2024 with worsening weakness and abdominal distention. 1. 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 Admit under inpatient status to PCU. GI consulted. 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 Recent CPT score 7, class B. MELD sodium score 7, MELD 3.0 is 9 with with TB 0.64, serum sodium 136, INR 1.1, albumin 3.5 and serum creatinine 0.94 is 9 as per labs of 06/19/2024 Discussed with the patient's daughter and . CT abdomen with and without IV contrast reported liver cirrhotic, nonocclusive thrombus in main portal vein, left portal vein, SMV and splenic vein. Multiple gallstones. Moderate splenomegaly with spleen size 17.5 cm. Continue spironolactone and midodrine. Discontinue azathioprine as patient has decompensated cirrhosis. Continue IV Solu-Cortef. 09/28: MELD sodium score 19 at the time of admission, 3 to 4% estimated 90-day mortality. Child score 11, class C with lethargic and sluggish. Patient did not get IV albumin yesterday because nurse discontinued as paracentesis was 1900 mL. It was mainly ordered to prevent SBP and HRS in view of upper GI bleed. 09/28: EGD was done today Impression: - Grade II esophageal varices. Incompletely eradicated. Banded. - Portal hypertensive gastropathy. - A few bleeding angiodysplastic lesions in the stomach. Treated with a heater probe. - No gross lesions in the entire examined duodenum. 2. Pancytopenia with severe anemia and thrombocytopenia with acute on chronic upper GI bleed: Hemoglobin 8.3/hematocrit 26.8%. Platelet count 42K. WBC is low normal 3.8K. For now patient is decompensated with increased portal hypertension. As per , she gets melena for weeks. Dr. Cintron consulted for EGD. She had 4 banding's done by Dr. Dinh in June 2024 which resulted into hypotension dizziness therefore she was reluctant for EGD. I talked to the patient's family that she is not fit for outpatient EGD. 09/28: H&H 8.2/27.7%. Platelet count 42K. 3. 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 She gets blackish stools once per week. 4. Hypotension and hypervolemia third volume spacing with severe hypoalbuminemia: IV albumin 25 g every 8 hourly total 3 bags ordered. Patient had paracentesis of 1900 mL yellow-colored fluid. Fluid ordered for analysis including culture. GI bleed and ascites puts high risk for SBP, encephalopathy and HRS and liver decompensation. On IV ceftriaxone. Continue IV PPI twice daily. Acute on chronic debility ? PT/OT/case management consulted. Patient lives at home with , typically has fairly good functional status at baseline. Suspect weakness is primarily due to decompensated cirrhosis as above. Appreciate therapy recommendations. 3. Hypertension/hyperlipidemia ? continue home Coreg at reduced dose of 3.125 mg twice daily for secondary portal hypertension prophylaxis. Continue home Zetia. 4. Hyponatremia ? Sodium 129 on admit, baseline 136-140. Suspect due to decompensated cirrhosis above. Sodium 132. Lactic acidosis 2.1-1.4. 5. Type 2 diabetes mellitus ? Glucose 170 on admit. Last A1c 7.4% on 08/25. Will treat with sliding scale insulin with meals for now, adjust as needed. Hold home glipizide. DVT prophylaxis: SCDs CODE STATUS: Full code, verified Microbiology Past 72 Hours 09/27/24 14:53 Fluid - Paracentesis (Abd) Gram Stain - Final Laboratory Results 09/27/24 14:53: Fluid Source PARACENTESIS, Fluid Color LT YEL, Fluid Appearance CLEAR, Fluid WBC 0.042, Fluid RBC 525, Fluid Tot Cell Count 0.050 H, Fld Polynuclear WBCs # 0.020, Fld Polynuclear WBCs % 47.6, Fluid Mononuclear WBCs 0.022, Fld Mononuclear WBCs % 52.4, Fluid Neutrophils 49, Fluid Lymphocytes 8, Fluid Monocytes 5, Fluid Macrophages 11, Fluid Other Cells 27, Fl Pathologist Comment Reviewed, Fluid Glucose 143, Fluid Comment 2 SEE COMMENT 09/27/24 16:32: POC Glucose 169 H 09/27/24 21:02: POC Glucose 186 H 09/28/24 05:41: WBC 4.3 L, RBC 3.26 L, Hgb 8.2 L, Hct 27.7 L, MCV 85.0, MCH 25.2 L, MCHC 29.6 L, RDW Std Deviation 51.2 H, RDW Coeff of Joel 16.5 H, Plt Count 42 L*, MPV 12.9 H, Immature Gran % (Auto) 1.600 H, Neut % (Auto) 90.1 H, Lymph % (Auto) 4.4 L, Chilton % (Auto) 3.7, Eos % (Auto) 0.0, Baso % (Auto) 0.2, Absolute Neuts (auto) 3.9, Absolute Lymphs (auto) 0.19 L, Nucleated RBC % 0, Sodium 133, Potassium 4.7, Chloride 104, Carbon Dioxide 17.5 L, Anion Gap 11, BUN 32 H, Creatinine 0.72, Estim Creat Clear Calc 53.61, Est GFR (MDRD) Non-Af 91, BUN/Creatinine Ratio 44.8 H, Glucose 189 H, Calcium 8.3, Total Bilirubin 0.79, Direct Bilirubin 0.53 H, AST 15, ALT 24, Alkaline Phosphatase 85, Total Protein 5.1 L, Albumin 2.5 L, Globulin 2.6 09/28/24 05:55: PT 17.2 H, INR 1.4 09/28/24 06:41: POC Glucose 186 H 09/28/24 13:04: POC Glucose 193 H Clinical Impression(s) from Imaging Studies Abdomen/Pelvis CT 09/26/24 14:34 IMPRESSION: 1. Extensive nonocclusive thrombus in the portal venous system. 2. Hepatic cirrhosis. 3. Moderate splenomegaly. 4. Cholelithiasis. 5. Diffuse osteopenia of the visualized spine with numerous compression fractures without retropulsed fragments. 6. There is a large amount of ascites. Note: Findings were called to Dr. Escobar in the [facility] emergency department on the afternoon of 09/26/2024 at 16:50 p.m. Reading Location: [place] [address] Chest X-Ray 09/26/24 14:34 IMPRESSION: Possible bibasilar atelectasis. Reading Location: [place] [address] Charges/Coding Visit Charges Inpatient E&M: 95428 Subs Hosp L2
--- NOTE | 2024-09-28 09:07 | PCM.PRE.AN2 ---
ASA Classification* ASA Classification ASA Classification: 3 Assessment & Plan Anesthesia* Anesthesia Assessment Anesthesia Assessment: Discussed sedation and/or anesthesia options, risks, benefits, and alternatives with patient/parents/legal guardian/POA. Questions invited. The patient/parents/legal guardian/POA seems to understand and agrees to proceed with anesthesia plan. Reviewed the physical assessment, medical history, allergy history and patient home medications list prior to surgery/procedure/anesthetic and documented any changes. Performed airway and anesthesia risk assessments. Anesthesia Type Anesthesia Type: MAC History Source History Obtained from:: Patient, Chart and Significant Other Anesthesia Focused Assessment* Temperature: 97.8 F Pulse Rate: 87 Blood Pressure: 113/63 Respiratory Rate: 16 Pulse Ox: 95 Oxygen Delivery Method: Room Air Airway Assessment Mouth opens: >3 cm Mallampati Score: II Teeth Condition: Chipped/Broken Neck Range of motion (ROM): Limited ROM Labs Anesthesia Preop lab: CBC WBC 4.3 K/mm3 (4.4-11.0) L 09/28/24 05:41 09/28/24 RBC 3.26 M/mm3 (4.2-5.4) L 09/28/24 05:41 09/28/24 Hgb 8.2 g/dL (12.0-15.0) L 09/28/24 05:41 09/28/24 Hct 27.7 % (37-47) L 09/28/24 05:41 09/28/24 Plt Count 42 K/mm3 (150-450) L* 09/28/24 05:41 09/28/24 CHEMISTRY Potassium 4.7 mmol/L (3.3-5.1) 09/28/24 05:41 09/28/24 Sodium 133 mmol/L (133-145) 09/28/24 05:41 09/28/24 Magnesium 2.1 mg/dL (1.6-2.6) 09/22/18 07:50 09/22/18 Phosphorus 3.3 mg/dL (2.5-4.9) 11/29/20 10:14 11/29/20 BUN 32 mg/dL (4-19) H 09/28/24 05:41 09/28/24 Creatinine 0.72 mg/dL (0.70-1.20) 09/28/24 05:41 09/28/24 Glucose 189 mg/dL (70-99) H 09/28/24 05:41 09/28/24 POC Glucose 186 mg/dL (74-106) H 09/28/24 06:41 09/28/24 TSH 4.040 uIU/mL (0.300-4.200) 08/25/24 11:04 08/25/24 COAG PT 17.2 SECONDS (11.7-14.9) H 09/28/24 05:55 09/28/24 Pre-Assessment Diagnosis/Proposed Procedure Planned Operative Procedure(s): EGD Anesthesia History 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 When Was Last Pacemaker Check QUESTION #4 FULL TEXT: You/Your Family Experience fever (hyperthermia) with Anesthesia Last Oral Intake Last Oral intake: Last Oral Intake NPO since 00:00 09/28/24 08:47 Meds taken in AM with sips of No 09/28/24 08:47 water? 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 Has anyone observed you stop No 09/26/24 18:59 breathing during sleep? STOP Results Positive 09/26/24 18:59 QUESTION #5 FULL TEXT : Do you snore loudly (louder than talking or can be heard through closed doors)? 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 Specify any problems Hx of Preganancy in last 3 No 09/26/24 18:59 Months Nurse Filling Out Transfusion [place] 09/26/24 18:59 & Questions: Date: 09/26/24 09/26/24 18:59 Time: 19:01 09/26/24 18:59 Patient unable to answer at this time (ie. 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: /Reproductive Hx- field crop harvest contractor Hx Now No 09/28/24 08:45 Gestational Age (in weeks): EDC: Hx Hx Para Hx Section SAB No 09/28/24 08:45 Active Medications Active Medications: Current Medications Generic Name Dose Route Start Last Admin Trade Name Freq PRN Reason Stop Dose Admin Calcium/Vitamin D 1 tablet 09/27/24 08:00 09/27/24 19:02 Calcium Carb/Vitamin D 1 Tablet Tablet PO 1 tablet BIDCM BAM Administration Ezetimibe 10 mg 09/27/24 10:00 09/27/24 09:18 Ezetimibe 10 Mg Tablet PO Not Given DAILY [facility] Ferrous Sulfate 325 mg 09/28/24 12:00 Ferrous Sulfate 325 Mg Tablet PO QODAY@1200 BAM Glucagon 1 mg 09/26/24 20:29 Glucagon 1 Mg/Ml Syringe IM X1 PRN Hypoglycemia Protocol Hydrocortisone Sodium Succinate 100 mg 09/27/24 22:00 09/28/24 06:38 Hydrocortisone Sod Succinate 100 Mg/2 Ml Vial IV 100 mg Q8 BAM Administration Ceftriaxone Sodium 1 gm in 50 mls @ 100 mls/hr 09/26/24 18:52 09/27/24 22:01 Rocephin IV Infused Q24@2200 [facility] Infusion Pantoprazole Sodium 40 mg/ 100 mls @ 330 mls/hr 09/26/24 18:52 09/27/24 21:29 Sodium Chloride IV Infused Q12 BAM Infusion Dextrose 250 mls @ 0 mls/hr 09/26/24 20:29 Dextrose 10%-Water IV .Q0M PRN HYPOGLYCEMIA Protocol As Directed Albumin Human 25 gm in 100 mls @ 60 mls/hr 09/28/24 08:45 IV 09/29/24 02:24 Q8H [facility] Insulin Human Lispro 0 unit 09/26/24 22:00 09/28/24 06:43 Insulin Lispro 100 Unit/Ml Insuln.Pen SC Not Given ACHS [facility] Protocol Lactulose 10 gm 09/28/24 14:00 Lactulose 20 Gm/30 Ml Udc PO TID BAM Melatonin 3 mg 09/26/24 18:52 Melatonin 3 Mg Tablet PO QHS PRN PRN INSOMNIA Midodrine 10 mg 09/26/24 18:52 09/27/24 19:01 Midodrine Hcl 5 Mg Tablet PO 10 mg TIDCM [facility] Administration Ondansetron HCl 4 mg 09/26/24 18:52 Ondansetron 4 Mg/2 Ml Vial IV Q8H PRN PRN NAUSEA/VOMITING Sodium Chloride 10 - 40 ml 09/26/24 18:54 0.9% Saline Lock 10 Ml Syringe IV UD PRN SALINE FLUSH Sucralfate 1 gm 09/26/24 22:00 09/28/24 00:19 Sucralfate 1 Gm Tablet PO Not Given 1HR_ACHS [facility] Ursodiol 500 mg 09/26/24 22:00 09/28/24 00:18 Ursodiol 250 Mg Tablet PO Not Given Q8H [facility] Medical History History of immunosuppression therapy History of steroid therapy Post-menopausal Ulcer Hoarseness High cholesterol History of stress test Anemia Hypothyroidism Rheumatoid arthritis Osteoporosis GI bleed Hepatitis Former smoker Non-smoker Irregular heart beat Hypertension Home Medications ?Medication ?Instructions ?Recorded ?Last Taken ?Type calcium 500 mg (as 1 tab PO BIDCM supplement #60 tabs 09/23/18 Unknown Rx carbonate)-vitamin D3 5 mcg (200 unit) tablet carvedilol 6.25 mg tablet 6.25 mg PO BID blood pressure 07/15/22 Unknown History ezetimibe 10 mg tablet 10 mg PO DAILY 07/15/22 Unknown History glipizide 5 mg tablet 5 mg PO BID diabetes 07/15/22 Unknown History sucralfate 1 gram tablet 1 g PO 1HR_ACHS 30 days #90 tabs 11/29/22 Unknown Rx azathioprine 50 mg tablet 50 mg PO QDAY 1 month #30 tabs 08/25/24 Unknown Rx ferrous sulfate 325 mg (65 mg 325 mg PO Q OTHER DAY supplement 08/25/24 Unknown Rx iron) tablet #60 tabs pantoprazole 40 mg tablet,delayed 40 mg PO BID 30 days #60 tabs 08/25/24 Unknown Rx release (Protonix) ursodiol 500 mg tablet 500 mg PO Q8H 1 month #90 tabs 08/28/24 Unknown Rx prednisone 10 mg tablet 10 mg PO DAILY 2 weeks #14 tabs 09/18/24 Unknown Rx prednisone 5 mg tablet 5 mg PO DAILY 1 month #30 tabs 09/18/24 Unknown Rx spironolactone 25 mg tablet 50 mg PO DAILY diuretic 09/26/24 Unknown History Allergy/AdvReac Type Severity Reaction Status Date / Time Sulfa (Sulfonamide Allergy Severe Swelling Verified 09/26/24 13:41 Antibiotics) Family History Other Diabetes Heart disease Surgical History History of esophagogastroduodenoscopy (EGD) History of cataract surgery H/O section Social History Smoking Status: Former smoker Review of Systems (Anesthesia) ROS Narrative System reviewed and no additional complaints, except as documented.
[2024-09-28] MEDS: Lactated Ringers 1,000 ML 15 ML IV (09:35)
--- NOTE | 2024-09-28 09:47 | CASEMGMT ---
Discharge Planning A list of HH providers including quality and resource use data and consistent with the patient's preferred geographic region, medical needs, and insurance network was created in [employer] Guide.? This list was provided to the RN DIAMOND. Anayeli Hernandez, Discharge Planning Asst.
--- NOTE | 2024-09-28 11:19 | PN_ITS ---
Progress Note Patient is 4 upper endoscopy today. She has been n.p.o. since midnight. Physical Exam Const alert, oriented x3, no apparent distress and healthy appearing General Appearance: cooperative GI normal to inspection, nondistended, normoactive bowel sounds, soft to palpation, non-tender and non-distended Percussion: normal to percussion Rectal Exam: deferred Assessment & Plan Assessment/Plan (1) Ascites: (2) Decompensated cirrhosis: (3) Peripheral edema: (4) Portal hypertension: (5) Cirrhosis: QUALIFIERS: Hepatic cirrhosis type: unspecified hepatic cirrhosis Ascites presence: with ascites Qualified Code(s): K74.60 - Unspecified cirrhosis of liver; R18.8 - Other ascites (6) Anemia: (7) Thrombocytopenia: PLAN: CT/Abdomen/Pelvis W IV Cont ONLY IMPRESSION: 1. Extensive nonocclusive thrombus in the portal venous system. 2. Hepatic cirrhosis. 3. Moderate splenomegaly. 4. Cholelithiasis. 5. Diffuse osteopenia of the visualized spine with numerous compression fractures without retropulsed fragments. 6. There is a large amount of ascites. The patient is a 69-year-old woman with known cirrhosis, who now presents with recent onset portal vein thrombosis. Her symptoms are consistent with the levy gnosis of PVT. Imaging confirms partial occlusion of the main portal vein and superior mesenteric vein extension. There is no evidence of bowel ischemia or underlying malignancy. The presence of PVT increases the risk of complications such as hepatic decompensation, ascites, and variceal bleeding. Anticoagulation is indicated given the recent onset and >50% occlusion.? Plan * EGD tomorrow then initiate anticoagulation:?Recommend starting enoxaparin and transitioning to a direct oral anticoagulant (DOAC) or warfarin for long-term anticoagulation, considering the patient's preference and [id number] class. * Monitor for complications:?Continue monitoring for signs and symptoms of portal hypertension, variceal bleeding, hepatic decompensation, and possible side effects of anticoagulation. * Imaging follow-up:?Repeat cross-sectional imaging (CT or MRI) every 3 months to assess response to anticoagulation and evaluate for resolution or progression of the thrombus. * Consider TIPS:?If anticoagulation fails to achieve clot regression or if the patient develops significant complications of portal hypertension, consider a transjugular intrahepatic portosystemic shunt (TIPS) procedure due to significant thrombocytopenia. PLAN: Plan 09/28/2024-plan is for upper scope today and possibly started on anticoagulation in the near future. Visit Charges Inpatient E&M: 68682 Subs Hosp L3
--- NOTE | 2024-09-28 11:40 | OP.EGD_ITS ---
Patient Name: Vannessa Perez Procedure Date: 09/28/2024 11:15 AM Date of : 1955 Age: 69 Procedure: Upper GI endoscopy Indications: Iron deficiency anemia, Melena, For therapy of esophageal varices Providers: Jaime Cintron DO Medicines: Monitored Anesthesia Care Patient Profile: This is a 69 year old female. Refer to note in patient chart for documentation of history and physical. Complications: No immediate complications. Procedure: Pre-Anesthesia Assessment: - Prior to the procedure, a History and Physical was performed, and patient medications and allergies were reviewed. The patient is competent. The risks and benefits of the procedure and the sedation options and risks were discussed with the patient. All questions were answered and informed consent was obtained. Patient identification and proposed procedure were verified by the physician in the pre-procedure area. Mental Status Examination: alert and oriented. Airway Examination: normal oropharyngeal airway and neck mobility. Respiratory Examination: clear to auscultation. CV Examination: normal. Prophylactic Antibiotics: The patient does not require prophylactic antibiotics. Prior Anticoagulants: The patient has taken no anticoagulant or antiplatelet agents except for NSAID medication. ASA Grade Assessment: II - A patient with mild systemic disease. After reviewing the risks and benefits, the patient was deemed in satisfactory condition to undergo the procedure. The anesthesia plan was to use monitored anesthesia care (MAC). Immediately prior to administration of medications, the patient was re-assessed for adequacy to receive sedatives. The heart rate, respiratory rate, oxygen saturations, blood pressure, adequacy of pulmonary ventilation, and response to care were monitored throughout the procedure. The physical status of the patient was re-assessed after the procedure. After obtaining informed consent, the endoscope was passed under direct vision. Throughout the procedure, the patient's blood pressure, pulse, and oxygen saturations were monitored continuously. The Endoscope was introduced through the mouth, and advanced to the third part of the duodenum. Small bowel enteroscopy was deemed necessary. The upper GI endoscopy was accomplished without difficulty. The patient tolerated the procedure well. Scope In: 11:23:36 AM Scope Out: 11:33:47 AM Total Procedure Duration Time 0 hours 10 minutes 11 seconds Findings: Grade II varices were found in the entire esophagus. They were 10 mm in largest diameter. Two bands were successfully placed with incomplete eradication of varices. Bleeding had stopped at the end of the procedure. Severe portal hypertensive gastropathy was found in the stomach. A few 5 mm angiodysplastic lesions with bleeding were found in the gastric body. Coagulation for destruction of remaining portion of lesion using heater probe was successful. Estimated blood loss was minimal. No gross lesions were noted in the entire examined duodenum. Impression: - Grade II esophageal varices. Incompletely eradicated. Banded. - Portal hypertensive gastropathy. - A few bleeding angiodysplastic lesions in the stomach. Treated with a heater probe. - No gross lesions in the entire examined duodenum. - No specimens collected. Recommendation: - [facility]. - Full liquid diet today. - Continue present medications. Procedure Code(s): --- Professional --- 80267, Small intestinal endoscopy, enteroscopy beyond second portion of duodenum, not including ileum; with ablation of tumor(s), polyp(s), or other lesion(s) not amenable to removal by hot biopsy forceps, bipolar cautery or snare technique CPT copyright 2021 [employer]. All rights reserved. The codes documented in this report are preliminary and upon impregnator electrolytic capacitors review may be revised to meet current compliance requirements. Jaime Cintron DO 09/28/2024 11:40:18 AM This report has been signed electronically. Number of Addenda: 0 Note Initiated On: 09/28/2024 11:15 AM
--- NOTE | 2024-09-28 11:44 | PCM.POST.ANE ---
Anesthesia: Postop Eval I Current Vital Signs Temperature: 98.3 F Pulse Rate: 86 Blood Pressure: 87/48 (pt awake, oriented, no complaints) Respiratory Rate: 16 Pulse Ox: 97 Oxygen Delivery Method: Room Air Assessment Airway patent: Yes Spontaneous unlabored respirations: Yes Mental status: Awake and Calm nausea: No Vomiting: No Anesthesia Complication: No Fluid Hydration Crystalloid volume administer (ml): 300 Total IV fluid infused: 300 Progress Note Anesthesia document: Postop Eval 1 completed: Yes
[2024-09-28] MEDS: Pantoprazole Sodium 40 MG in 0.9% Normal Saline (100mL MB+) 100 ML 330 MG IV ×2 (12:47→20:54)
[2024-09-28] MEDS: Calcium Carb/Vitamin D 1 TABLET Tablet PO ×2 (12:57→17:01)
--- NOTE | 2024-09-28 13:09 | CASEMGMT ---
ROBBY FIELDS received order for palliative consult. Screening tool completed and referral sent to [facility].
[2024-09-28] MEDS: 0.9% Saline Lock 10 ML Syringe IV (13:36)
[2024-09-28] MEDS: Albumin Human 25% (100 mL) 25 GM/100 ML BAG IV ×2 (13:37→15:12)
[2024-09-28 14:16] LABS: Pathologist Comment/Body Fluid Reviewed
--- NOTE | 2024-09-28 14:39 | CASEMGMT ---
RN CM in to discuss discharge planning with patient, daughter at bedside. RN CM discuss HHC vs SNF. Patient and daughter state they would like to go to rehab at discharge. A list of HHC and SNF providers including quality and resource use data and consistent with the patient?s preferred geographical region, medical needs, and insurance network were provided from the [employer] Guide. Daughter and patient states their first choice is TCU. RN CM encourage patient and daughter to review list and provide additional preferences. Patient and daughter had no further questions or concerns. RN CM made referral to TCU. CM will continue to follow this patient and plan for a safe discharge.
--- NOTE | 2024-09-28 16:26 | POSTOPAN2_ITS ---
Anesthesia Postop Eval I Sum Postop Eval Completion status Anesthesia document: Postop Eval 1 completed: Yes Anesthesia Postop Eval I Summary Anesthesia Postop Eval I Summary: Anesthesia Postop Eval I: Assessment Summary Airway patent Yes 09/28/24 11:45 [email or web address] [email or web address] Spontaneous unlabored Yes 09/28/24 11:45 [email or web address] [email or web address] respirations Mental status Awake,Calm 09/28/24 11:45 [email or web address] nausea No 09/28/24 11:45 [email or web address] Vomiting No 09/28/24 11:45 [email or web address] [email or web address] Anesthesia Postop Eval I: Fluid Summary Crystalloid volume administer 300 09/28/24 11:45 [email or web address] [email or web address] (ml) Colloids volume administered ( ml) Blood Product volume administered (ml) Total IV fluid infused 300 09/28/24 11:45 [email or web address] [email or web address] Anesthesia Postop Eval I: Summary Notes Anesthesia Complication No 09/28/24 11:45 [email or web address] Anesthesia Complication Comment: Post-operative progress note Anesthesia: Postop Eval II Evaluation Mental status: Awake and Calm Pain Level: 1 nausea: No Vomiting: No
--- NOTE | 2024-09-28 16:26 | PCM.POSTANE2 ---
Anesthesia Postop Eval I Sum Postop Eval Completion status Anesthesia document: Postop Eval 1 completed: Yes Anesthesia Postop Eval I Summary Anesthesia Postop Eval I Summary: Anesthesia Postop Eval I: Assessment Summary Airway patent Yes 09/28/24 11:45 [email or web address] [email or web address] Spontaneous unlabored Yes 09/28/24 11:45 [email or web address] [email or web address] respirations Mental status Awake,Calm 09/28/24 11:45 [email or web address] nausea No 09/28/24 11:45 [email or web address] [email or web address] Vomiting No 09/28/24 11:45 [email or web address] [email or web address] Anesthesia Postop Eval I: Fluid Summary Crystalloid volume administer 300 09/28/24 11:45 [email or web address] [email or web address] (ml) Colloids volume administered ( ml) Blood Product volume administered (ml) Total IV fluid infused 300 09/28/24 11:45 [email or web address] [email or web address] Anesthesia Postop Eval I: Summary Notes Anesthesia Complication No 09/28/24 11:45 [email or web address] Anesthesia Complication Comment: Post-operative progress note Anesthesia: Postop Eval II Evaluation Mental status: Awake and Calm Pain Level: 1 nausea: No Vomiting: No
[2024-09-28] MEDS: Glucerna Shake 120 ML LIQUID PO (18:57)
[2024-09-29] VITALS (13 sets, daily range): BP systolic 84–113; BP diastolic 52–72; PULSE 69–89; RESP 14–16; TEMP 36.4–36.8; O2SAT 94–100; BMI 26.8
[2024-09-29] MEDS: Albumin Human 25% (100 mL) 25 GM/100 ML BAG IV (02:01)
[2024-09-29 04:59] LABS: Hematocrit 21.1 % (37-47); Hemoglobin 6.6 g/dL (12.0-15.0); Immature Granulocytes Count 0.030 X10^3/uL (0.0-0.0); Mean Corp Hgb Conc 31.3 g/dL (32-36); Mean Corpuscular Volume 82.1 fL (81-99); Mean Platelet Vol. 12.1 fl (6.2-12.0); NRBC Flagged by Analyzer 0 % (0-5); POSITIVE COUNT YES; POSITIVE DIFFERENTIAL YES; RBC Distribution Width CV 16.5 % (11.6-14.6); RBC Distribution Width SD 49.4 fl (35.1-43.9); Red Blood Count 2.57 M/mm3 (4.2-5.4); White Blood Count 2.2 K/mm3 (4.4-11.0)
[2024-09-29 05:09] LABS: Prothrombin Time (Protime)PT. 19.3 SECONDS (11.7-14.9)
[2024-09-29 05:13] LABS: Platelet Count 40 K/mm3 (150-450)
[2024-09-29 06:23] LABS: AST(SGOT) 12 U/L (<=31); Alanine Aminotransfer ALT/SGPT 21 U/L (<=34); Albumin, Serum 3.7 g/dL (3.4-4.8); Alkaline Phosphatase 69 U/L (35-104); Anion Gap 14 (5-15); BUN 33 mg/dL (4-19); BUN/Creat Ratio 46.5 RATIO (10-20); Bilirubin, Direct 0.53 mg/dL (0.00-0.30); Calcium,Total 9.1 mg/dL (7.6-11.0); Carbon Dioxide 16.9 mmol/L (21.0-32.0); Chloride 104 mmol/L (98-108); Estimated Creatinine Clearance 53.61 ml/min (50-250); Globulin 2.2 g/dL (2.2-4.2); Glucose 186 mg/dL (70-99); Potassium 4.2 mmol/L (3.3-5.1)
[2024-09-29] MEDS: Pantoprazole Sodium 40 MG in 0.9% Normal Saline (100mL MB+) 100 ML 330 MG IV ×2 (10:05→21:33)
--- NOTE | 2024-09-29 10:18 | CASEMGMT ---
Tertiary Insurance review for hospitals In-network with MMO insurance if transfer is recommended is as follows: [facility], [facility], [place], [facility], [facility], [facility], , [place], [facility], [facility], and [place]. Anayeli Hernandez, Discharge Planning Asst.
[2024-09-29] MEDS: 0.9% Normal Saline (500mL Bag) 500 ML 15 ML IV (11:20)
[2024-09-29] MEDS: 0.9% Saline Lock 10 ML Syringe IV (11:31)
[2024-09-29 15:08] LABS: Albumin, Body Fluid 0.4 g/dL (Not Estab.)
--- NOTE | 2024-09-29 15:50 | PCM.PN.HOSP ---
Reason for Visit Chief Complaint: Worsening weakness with abdominal distention Objective Data Objective Data Vital Signs: Vital Signs Temp Pulse Resp BP Pulse Ox O2 Del Method 98.2 F 80 14 111/63 99 Room Air 09/29/24 15:38 09/29/24 15:38 09/29/24 15:38 09/29/24 15:38 09/29/24 15:38 09/29/24 15:38 Oxygen Delivery Method Room Air Weight: 127 lb 10.362 oz Body Mass Index (BMI) 26.8 Intake & Output: Intake and Output for Last 24 Hours 09/27/24 09/28/24 09/29/24 23:59 23:59 23:59 Intake Total 250 / 300 801.25 / 801.25 253.75 / 253.75 Output Total 2600 / 2600 300 / 600 700 / 700 Balance -2350 / -2300 501.25 / 201.25 -446.25 / -446.25 Lab / Micro Data 09/29/24 04:30 09/29/24 04:30 Labs: Laboratory Results - last 24 hr 09/27/24 14:53: Fluid Albumin 0.4 09/28/24 17:03: POC Glucose 254 H 09/28/24 20:49: POC Glucose 239 H 09/29/24 04:05: PT 19.3 H, INR 1.6 09/29/24 04:30: WBC 2.2 L, RBC 2.57 L, Hgb 6.6 L, Hct 21.1 L, MCV 82.1, MCH 25.7 L, MCHC 31.3 L D, RDW Std Deviation 49.4 H, RDW Coeff of Joel 16.5 H, Plt Count 40 L*, MPV 12.1 H, Immature Gran % (Auto) 1.400 H, Neut % (Auto) 90.0 H, Lymph % (Auto) 5.0 L, Lipscomb % (Auto) 3.6, Eos % (Auto) 0.0, Baso % (Auto) 0.0, Absolute Neuts (auto) 2.0, Absolute Lymphs (auto) 0.11 L, Nucleated RBC % 0, Sodium 135, Potassium 4.2, Chloride 104, Carbon Dioxide 16.9 L, Anion Gap 14, BUN 33 H, Creatinine 0.71, Estim Creat Clear Calc 53.61, Est GFR (MDRD) Non-Af 93, BUN/Creatinine Ratio 46.5 H, Glucose 186 H, Calcium 9.1, Total Bilirubin 0.82, Direct Bilirubin 0.53 H, AST 12, ALT 21, Alkaline Phosphatase 69, Total Protein 5.9, Albumin 3.7, Globulin 2.2 09/29/24 08:40: Blood Type A NEGATIVE, Antibody Screen NEGATIVE, Crossmatch See Detail 09/29/24 09:39: POC Glucose 206 H Micro: Microbiology 09/27/24 14:53 Fluid - Paracentesis (Abd) Gram Stain - Final 09/27/24 14:53 Fluid - Paracentesis (Abd) Body Fluid Culture - Preliminary No growth-Final to follow 09/27/24 14:53 Fluid - Paracentesis (Abd) Anaerobic Culture - Preliminary No growth in 48 hours. Physical Exam Narrative Seen and examined Overall patient looks better. More awake and alert. Blood pressure is also better. 111/63. Heart rate 80/min. Admitted with generalized weakness for 2 weeks. No abdominal distention or pain but hemoglobin dropped to 6.6 Physical exam General: Alert, Oriented x3, Cooperative. Frail and fatigued. BMI 26.7 kg/m? HEENT: Atraumatic, PERRLA, EOMI, Normocephalic. Oral: No Gingival or Mucosal Lesions/ Ulcerations Neck: Supple, No JVD, Negative Carotid Bruits Chest wall/Lungs: Air entry diminished in bilateral lung bases. No crepitation/rhonchi Cardiovascular: Regular rate and rhythm, Normal S1,S2, No M/G/R Abdomen: Bowel Sounds Present, Soft, Non Tender, distended with ascites, fluid thrill present. : No dysuria. No renal angle tenderness. No suprapubic tenderness. Extremities: Minimal to no edema, Capillary Refill Less than 3 Seconds Skin: No rashes, No breakdown Musculoskeletal: No Tenderness to Palpation of Joints or Extremities. Muscle strength 4/5 at knees and hip joints Neurological: Cranial nerves II-XII grossly intact, DTR 2+/4. No acute focal neurological deficit. Psych/Mental Status: Flat affect Assessment & Plan Assessment/Plan (1) Decompensated cirrhosis: (2) Ascites: PLAN: Plan Patient is a 69-year-old female who presented [facility] ED on 09/26/2024 with worsening weakness and abdominal distention. 1. 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 Admit under inpatient status to PCU. GI consulted. 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 Recent CPT score 7, class B. MELD sodium score 7, MELD 3.0 is 9 with with TB 0.64, serum sodium 136, INR 1.1, albumin 3.5 and serum creatinine 0.94 is 9 as per labs of 06/19/2024 Discussed with the patient's daughter and . CT abdomen with and without IV contrast reported liver cirrhotic, nonocclusive thrombus in main portal vein, left portal vein, SMV and splenic vein. Multiple gallstones. Moderate splenomegaly with spleen size 17.5 cm. Continue spironolactone and midodrine. Discontinue azathioprine as patient has decompensated cirrhosis. Continue IV Solu-Cortef. 09/28: MELD sodium score 19 at the time of admission, 3 to 4% estimated 90-day mortality. Child score 11, class C with lethargic and sluggish. Patient did not get IV albumin yesterday because nurse discontinued as paracentesis was 1900 mL. It was mainly ordered to prevent SBP and HRS in view of upper GI bleed. 09/28: EGD was done today Impression: - Grade II esophageal varices. Incompletely eradicated. Banded. - Portal hypertensive gastropathy. - A few bleeding angiodysplastic lesions in the stomach. Treated with a heater probe. - No gross lesions in the entire examined duodenum. 09/29: Patient hemoglobin to 6.6/21%. Platelet count 40,000. Discussed with Dr. Cintron. Plan for repeat EGD. If the patient continues to bleed will need to be transferred for emergent TIPS. Discussed about the pros and cons about the TIPS. Patient does not have good physical capacity/functional status therefore evaluation for liver transplant might be challenging. SAAG 2.1, portal hypertensive pattern. Ascitic fluid total cell count 50, polymorphs 20, 47, mononuclears 22 therefore SBP ruled out. 2. Pancytopenia with severe anemia and thrombocytopenia with acute on chronic upper GI bleed: Hemoglobin 8.3/hematocrit 26.8%. Platelet count 42K. WBC is low normal 3.8K. For now patient is decompensated with increased portal hypertension. As per , she gets melena for weeks. Dr. Cintron consulted for EGD. She had [address] banding[address] done [address] Dr[address] Dinh in June 2024 which resulted into hypotension dizziness therefore she was reluctant for EGD. I talked to the patient's family that she is not fit for outpatient EGD. 09/28: H&H 8.2/27.7%. Platelet count 42K. 09/29: H&H 6.6/21%. 3. 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 She gets blackish stools once per week. 09/29: Discussed about the multiple thrombosis in portal vein circulation 4. Hypotension and hypervolemia third volume spacing with severe hypoalbuminemia: IV albumin 25 g every 8 hourly total 3 bags ordered. Patient had paracentesis of 1900 mL yellow-colored fluid. Fluid ordered for analysis including culture. GI bleed and ascites puts high risk for SBP, encephalopathy and HRS and liver decompensation. On IV ceftriaxone. Continue IV PPI twice daily. Acute on chronic debility ? PT/OT/case management consulted. Patient lives at home with , typically has fairly good functional status at baseline. Suspect weakness is primarily due to decompensated cirrhosis as above. Appreciate therapy recommendations. 3. Hypertension/hyperlipidemia ? continue home Coreg at reduced dose of 3.125 mg twice daily for secondary portal hypertension prophylaxis. Continue home Zetia. 4. Hyponatremia ? Sodium 129 on admit, baseline 136-140. Suspect due to decompensated cirrhosis above. Sodium 132. Lactic acidosis 2.1-1.4. 5. Type 2 diabetes mellitus ? Glucose 170 on admit. Last A1c 7.4% on 08/25. Will treat with sliding scale insulin with meals for now, adjust as needed. Hold home glipizide. DVT prophylaxis: SCDs CODE STATUS: Full code, verified 09/27/24 14:53: Fluid Albumin 0.4 09/28/24 17:03: POC Glucose 254 H 09/28/24 20:49: POC Glucose 239 H 09/29/24 04:05: PT 19.3 H, INR 1.6 09/29/24 04:30: WBC 2.2 L, RBC 2.57 L, Hgb 6.6 L, Hct 21.1 L, MCV 82.1, MCH 25.7 L, MCHC 31.3 L D, RDW Std Deviation 49.4 H, RDW Coeff of Joel 16.5 H, Plt Count 40 L*, MPV 12.1 H, Immature Gran % (Auto) 1.400 H, Neut % (Auto) 90.0 H, Lymph % (Auto) 5.0 L, Lipscomb % (Auto) 3.6, Eos % (Auto) 0.0, Baso % (Auto) 0.0, Absolute Neuts (auto) 2.0, Absolute Lymphs (auto) 0.11 L, Nucleated RBC % 0, Sodium 135, Potassium 4.2, Chloride 104, Carbon Dioxide 16.9 L, Anion Gap 14, BUN 33 H, Creatinine 0.71, Estim Creat Clear Calc 53.61, Est GFR (MDRD) Non-Af 93, BUN/Creatinine Ratio 46.5 H, Glucose 186 H, Calcium 9.1, Total Bilirubin 0.82, Direct Bilirubin 0.53 H, AST 12, ALT 21, Alkaline Phosphatase 69, Total Protein 5.9, Albumin 3.7, Globulin 2.2 09/29/24 08:40: Blood Type A NEGATIVE, Antibody Screen NEGATIVE, Crossmatch See Detail 09/29/24 09:39: POC Glucose 206 H Clinical Impression(s) from Imaging Studies Abdomen/Pelvis CT 09/26/24 14:34 IMPRESSION: 1. Extensive nonocclusive thrombus in the portal venous system. 2. Hepatic cirrhosis. 3. Moderate splenomegaly. 4. Cholelithiasis. 5. Diffuse osteopenia of the visualized spine with numerous compression fractures without retropulsed fragments. 6. There is a large amount of ascites. Note: Findings were called to Dr. Escobar in the [facility] emergency department on the afternoon of 09/26/2024 at 16:50 p.m. Reading Location: [place] [id number] Chest X-Ray 09/26/24 14:34 IMPRESSION: Possible bibasilar atelectasis. Reading Location: [id number] Charges/Coding Addendum Addendum: Total time of the visit including total time spent in counseling or coordination of care, (more than 50% of the total time, spent in obtaining medical information from nurses and other ancillary care providers ,explaining to the patient about labs, imaging, diagnosis and management of active complex medical conditions), discussion with the plastics scientist, discussion with the patient's and daughter regarding worsening of liver disease/cirrhosis pros and cons of TIPS and liver transplantation, review of labs and imaging is 40 minutes. Prognosis guarded Visit Charges Inpatient E&M: 23284 Subs Hosp L3
--- NOTE | 2024-09-29 16:01 | NURSING ---
report called to ac
[2024-09-29] MEDS: Lactated Ringers 1,000 ML 15 ML IV (16:11)
--- NOTE | 2024-09-29 16:24 | PN_ITS ---
Progress Note The patient's hemoglobin went back down. She had to be transfused 2 units of packed red blood cells. She has been NPO. Will repeat upper endoscopy to evaluate her esophageal varices and other etiology of possible continued GI blood loss. Physical Exam Const alert, oriented x3, no apparent distress and healthy appearing General Appearance: cooperative GI normal to inspection, nondistended, normoactive bowel sounds, soft to palpation, non-tender and non-distended Percussion: normal to percussion Rectal Exam: deferred Assessment & Plan Assessment/Plan (1) Ascites: (2) Decompensated cirrhosis: (3) Peripheral edema: (4) Portal hypertension: (5) Cirrhosis: QUALIFIERS: Hepatic cirrhosis type: unspecified hepatic cirrhosis Ascites presence: with ascites Qualified Code(s): K74.60 - Unspecified cirrhosis of liver; R18.8 - Other ascites (6) Anemia: (7) Thrombocytopenia: PLAN: CT/Abdomen/Pelvis W IV Cont ONLY IMPRESSION: 1. Extensive nonocclusive thrombus in the portal venous system. 2. Hepatic cirrhosis. 3. Moderate splenomegaly. 4. Cholelithiasis. 5. Diffuse osteopenia of the visualized spine with numerous compression fractures without retropulsed fragments. 6. There is a large amount of ascites. The patient is a 69-year-old woman with known cirrhosis, who now presents with recent onset portal vein thrombosis. Her symptoms are consistent with the diagnosis of PVT. Imaging confirms partial occlusion of the main portal vein and superior mesenteric vein extension. There is no evidence of bowel ischemia or underlying malignancy. The presence of PVT increases the risk of complications such as hepatic decompensation, ascites, and variceal bleeding. Anticoagulation is indicated given the recent onset and >50% occlusion.? Plan * EGD tomorrow then initiate anticoagulation:?Recommend starting enoxaparin and transitioning to a direct oral anticoagulant (DOAC) or warfarin for long-term anticoagulation, considering the patient's preference and [id number] class. * Monitor for complications:?Continue monitoring for signs and symptoms of portal hypertension, variceal bleeding, hepatic decompensation, and possible side effects of anticoagulation. * Imaging follow-up:?Repeat cross-sectional imaging (CT or MRI) every 3 months to assess response to anticoagulation and evaluate for resolution or progression of the thrombus. * Consider TIPS:?If anticoagulation fails to achieve clot regression or if the patient develops significant complications of portal hypertension, consider a transjugular intrahepatic portosystemic shunt (TIPS) procedure due to significant thrombocytopenia. PLAN: Plan 09/28/2024-plan is for upper scope today and possibly started on anticoagulation in the near future. Findings: Grade II varices were found in the entire esophagus. They were 10 mm in largest diameter. Two bands were successfully placed with incomplete eradication of varices. Bleeding had stopped at the end of the procedure. Severe portal hypertensive gastropathy was found in the stomach. A few 5 mm angiodysplastic lesions with bleeding were found in the gastric body. Coagulation for destruction of remaining portion of lesion using heater probe was successful. Estimated blood loss was minimal. No gross lesions were noted in the entire examined duodenum. Impression: - Grade II esophageal varices. Incompletely eradicated. Banded. - Portal hypertensive gastropathy. - A few bleeding angiodysplastic lesions in the stomach. Treated with a heater probe. - No gross lesions in the entire examined duodenum. - No specimens collected. Recommendation: - [facility] to [facility] for [facility] care. - Full liquid diet today. - Continue present medications. 09/29/2024. Patient was explained alternatives, risk and benefits include understanding bleeding, fracture, subsequent perforation Need for more surgery . She will have an ASA of 3. Visit Charges Inpatient E&M: 81442 [facility] Hosp L3
--- NOTE | 2024-09-29 16:34 | PRE.ANES_ITS ---
ASA Classification* ASA Classification ASA Classification: 3 Assessment & Plan Anesthesia* Anesthesia Assessment Anesthesia Assessment: Discussed sedation and/or anesthesia options, risks, benefits, and alternatives with patient/parents/legal guardian/POA. Questions invited. The patient/parents/legal guardian/POA seems to understand and agrees to proceed with anesthesia plan. Reviewed the physical assessment, medical history, allergy history and patient home medications list prior to surgery/procedure/anesthetic and documented any changes. Performed airway and anesthesia risk assessments. Anesthesia Type Anesthesia Type: MAC History Source History Obtained from:: Patient and Chart Anesthesia Focused Assessment* Temperature: 98.2 F Pulse Rate: 80 Blood Pressure: 111/63 Respiratory Rate: 14 Pulse Ox: 99 Airway Assessment Mouth opens: >3 cm Mallampati Score: II Teeth Condition: Intact Labs Anesthesia Preop lab: CBC WBC 2.2 K/mm3 (4.4-11.0) L 09/29/24 04:30 09/29/24 RBC 2.57 M/mm3 (4.2-5.4) L 09/29/24 04:30 09/29/24 Hgb 6.6 g/dL (12.0-15.0) L 09/29/24 04:30 09/29/24 Hct 21.1 % (37-47) L 09/29/24 04:30 09/29/24 Plt Count 40 K/mm3 (150-450) L* 09/29/24 04:30 09/29/24 CHEMISTRY Potassium 4.2 mmol/L (3.3-5.1) 09/29/24 04:30 09/29/24 Sodium 135 mmol/L (133-145) 09/29/24 04:30 09/29/24 Magnesium 2.1 mg/dL (1.6-2.6) 09/22/18 07:50 09/22/18 Phosphorus 3.3 mg/dL (2.5-4.9) 11/29/20 10:14 11/29/20 BUN 33 mg/dL (4-19) H 09/29/24 04:30 09/29/24 Creatinine 0.71 mg/dL (0.70-1.20) 09/29/24 04:30 09/29/24 Glucose 186 mg/dL (70-99) H 09/29/24 04:30 09/29/24 POC Glucose 206 mg/dL (74-106) H 09/29/24 09:39 09/29/24 TSH 4.040 uIU/mL (0.300-4.200) 08/25/24 11:04 08/13 06/06 COAG PT 19.3 SECONDS (11.7-14.9) H 09/29/24 04:05 09/12 11/06 Pre-Assessment Diagnosis/Proposed Procedure Planned Operative Procedure(s): EGD Anesthesia History Anesthesia History - personal companion: Anesthesia History - personal companion Hx Hospitalization Any Problems With Anesthesia Yes: bp drops 09/29/24 15:47 Cholinesterase deficiency No 09/29/24 15:47 You/Your Family Experience No 09/29/24 15:47 fever (hyperthermia) with Relationship Recent Exposure to Contagious No 09/29/24 15:47 Disease Does patient have nerve No 09/29/24 15:47 stimulator Patient instructed to have No 09/29/24 15:47 device shut off --Does patient have Pacemaker No 09/29/24 15:49 or ICD? When Was Last Pacemaker Check QUESTION #4 FULL TEXT: You/Your Family Experience fever (hyperthermia) with Anesthesia Last Oral Intake Last Oral intake: Last Oral Intake NPO since 00:00 09/29/24 15:49 Meds taken in AM with sips of No 09/29/24 15:49 water? Meds patient instructed to take am of surgery PONV PONV - personal companion: PONV - personal companion Female HX of Motion Sickness HX of N/V After Surgery Non-Smoker Duration of Surgery greater than 60 minutes Number of Risk Factors PONV Score Height & Weight Height & Weight: Anesthesia: Height & Weight Height 4 ft 9.87 in 09/29/24 15:49 Weight: 57.9 kg 09/29/24 15:49 Body Mass Index (BMI) 26.8 09/29/24 15:49 Respiratory Assessment Respiratory Assessment - personal companion: Respiratory Tract Infection Hx - personal companion Hx Respiratory Tract Infection No 09/29/24 15:47 STOP Sleep Apnea STOP Sleep Apnea - personal companion: STOP Sleep Apnea - personal companion Hx Hypertension Yes 09/29/24 10:30 Hx Sleep Apnea No 07/15/25 18:59 CPAP BIPAP Do you snore loudly (louder No 09/26/24 18:59 than talking or can be heard Do you often feel tired/ Yes 09/26/24 18:59 fatigued/ sleepy during daytime? Has anyone observed you stop No 09/26/24 18:59 breathing during sleep? STOP Results Positive 09/28/24 11:40 QUESTION #5 FULL TEXT : Do you snore loudly (louder than talking or can be heard through closed doors)? Tobacco Use History Tobacco Use History - personal companion: Tobacco Use History - personal companion Tobacco Use Smoking Status Former smoker 09/26/24 18:59 Hx Tobacco Use No 09/26/24 18:59 Years Smoking Packs Smoked per Day Smoking Cessation Date was No - quit smoking greater 09/26/24 18:59 within the last 15 years than 15 years ago Hx Smoking Cessation Date Hx Smoking Cessation No 09/26/24 18:59 Counseling Hematologic Medial History Hematologic Hx - personal companion: Hematologic Medical Hx - manager orange Hx of Blood Transfusion Yes 09/26/24 18:59 Hx of Transfusion in last 3 No 09/26/24 18:59 Months Date of Last Transfusion (if within last 3 months) Ever experience any problems No 09/26/24 18:59 with transfusion(s)? Specify any problems Hx of Preganancy in last 3 No 09/26/24 18:59 Months Nurse Filling Out Transfusion [place] 09/26/24 18:59 & Questions: Date: 09/26/24 09/26/24 18:59 Time: 19:01 09/26/24 18:59 Patient unable to answer at this time (ie. confused, unrespo /Reproduction History /Reproductive History - personal companion: /Reproductive Hx- personal companion Hx Now No 09/29/24 15:47 Gestational Age (in weeks): EDC: Hx Hx Para Hx Section SAB No 09/29/24 15:47 Active Medications Active Medications: Current Medications Generic Name Dose Route Start Last Admin Trade Name Freq PRN Reason Stop Dose Admin Calcium/Vitamin D 1 tablet 09/27/24 08:00 09/29/24 09:42 Calcium Carb/Vitamin D 1 Tablet Tablet PO Not [facility] Ezetimibe 10 mg 09/27/24 10:00 09/28/24 12:58 Ezetimibe 10 Mg Tablet PO 10 mg DAILY BAM Administration Ferrous Sulfate 325 mg 09/28/24 12:00 09/28/24 12:57 Ferrous Sulfate 325 Mg Tablet PO 325 mg QODAY@1200 BAM Administration Glucagon 1 mg 09/26/24 20:29 Glucagon 1 Mg/Ml Syringe IM X1 PRN Hypoglycemia Protocol Ceftriaxone Sodium 1 gm in 50 mls @ 100 mls/hr 09/26/24 18:52 09/28/24 21:40 Rocephin IV Infused Q24@2200 BAM Infusion Pantoprazole Sodium 40 mg/ 100 mls @ 330 mls/hr 09/26/24 18:52 09/29/24 10:51 Sodium Chloride IV Infused Q12 BAM Infusion Dextrose 250 mls @ 0 mls/hr 09/26/24 20:29 Dextrose 10%-Water IV .Q0M PRN HYPOGLYCEMIA Protocol As Directed Lactated Ringer's 1,000 mls @ 15 mls/hr 09/28/24 09:30 09/28/24 14:00 IV 0 mls/hr .Q48H BAM Infusion Sodium Chloride 500 mls @ 0 mls/hr 09/29/24 11:00 09/29/24 11:35 IV 0 mls/hr .Q0M BAM Infusion KVO Sodium Chloride 250 mls @ 15 mls/hr 09/29/24 10:54 IV .[id number] PRN Saline Flush Sodium Chloride 250 mls @ 15 mls/hr 09/29/24 10:54 IV .[id number] PRN Additional IVPB Infusion Lactated Ringer's 1,000 mls @ 15 mls/hr 09/29/24 16:00 09/29/24 16:11 IV 15 mls/hr .Q48H BAM Administration Insulin Human Lispro 0 unit 09/26/24 22:00 09/29/24 16:06 Insulin Lispro 100 Unit/Ml Insuln.Pen SC Not Given ACHS BAM Protocol Lactulose 10 gm 09/28/24 14:00 09/29/24 16:06 Lactulose 20 Gm/30 Ml Udc PO Not Given TID BAM Melatonin 3 mg 09/26/24 18:52 Melatonin 3 Mg Tablet PO QHS PRN PRN INSOMNIA Midodrine 10 mg 09/26/24 18:52 09/29/24 16:07 Midodrine Hcl 5 Mg Tablet PO Not Given TIDCM [facility] Nutritional Formula (Lactose Free) 120 ml 09/28/24 18:00 09/29/24 16:06 Glucerna Shake 120 Ml Liquid PO Not Given 4X/DAY [facility] Ondansetron HCl 4 mg 09/26/24 18:52 Ondansetron 4 Mg/2 Ml Vial IV Q8H PRN PRN NAUSEA/VOMITING Sodium Chloride 10 - 40 ml 09/26/24 18:54 09/29/24 11:31 0.9% Saline Lock 10 Ml Syringe IV 30 ml UD PRN Administration SALINE FLUSH Sucralfate 1 gm 09/26/24 22:00 09/29/24 16:06 Sucralfate 1 Gm Tablet PO Not Given 1HR_ACHS [facility] Ursodiol 500 mg 09/26/24 22:00 09/29/24 16:06 Ursodiol 250 Mg Tablet PO Not Given Q8H [facility] PFSH Medical History History of immunosuppression therapy History of steroid therapy Post-menopausal Ulcer Hoarseness High cholesterol History of stress test Anemia Hypothyroidism Rheumatoid arthritis Osteoporosis GI bleed Hepatitis Former smoker Non-smoker Irregular heart beat Hypertension Home Medications ?Medication ?Instructions ?Recorded ?Last Taken ?Type calcium 500 mg (as 1 tab PO BIDCM supplement #6 0 tabs 09/23/18 Unknown Rx carbonate)-vitamin D3 5 mcg (200 unit) tablet carvedilol 6.25 mg tablet 6.25 mg PO BID blood pressur e 07/15/22 Unknown History ezetimibe 10 mg tablet 10 mg PO DAILY 07/15/22 Unkn own History glipizide 5 mg tablet 5 mg PO BID diabetes 3 Unknown History sucralfate 1 gram tablet 1 g PO 1HR_ACHS 30 days #90 tabs 11/29/22 Unknown Rx azathioprine 50 mg tablet 50 mg PO QDAY 1 month #30 ta bs 08/25/24 Unknown Rx ferrous sulfate 325 mg (65 mg 325 mg PO Q OTHER DAY [facility] 08/25/24 Unknown Rx iron) tablet #60 tabs pantoprazole 40 mg tablet,delayed 40 mg PO BID 30 days #60 tabs 08/25/24 Unknown Rx release (Protonix) ursodiol 500 mg tablet 500 mg PO Q8H 1 month #90 ta bs 08/28/24 Unknown Rx prednisone 10 mg tablet 10 mg PO DAILY 2 weeks #14 t abs 09/18/24 Unknown Rx prednisone 5 mg tablet 5 mg PO DAILY 1 month #30 ta bs 09/18/24 Unknown Rx spironolactone 25 mg tablet 50 mg PO DAILY diuretic Unknown History Allergy/AdvReac Type Severity Reaction Status Date / Time Sulfa (Sulfonamide Allergy Severe Swelling Verified 09/26/24 13:41 Antibiotics) Family History Other Diabetes Heart disease Surgical History History of esophagogastroduodenoscopy (EGD) History of cataract surgery H/O section Social History Smoking Status: Former smoker Review of Systems (Anesthesia) ROS Narrative System reviewed and no additional complaints, except as documented.
--- NOTE | 2024-09-29 16:51 | PCM.POST.ANE ---
Anesthesia: Postop Eval I Current Vital Signs Temperature: 98 F Pulse Rate: 89 Blood Pressure: 97/72 Respiratory Rate: 16 Pulse Ox: 94 Oxygen Delivery Method: Room Air Assessment Airway patent: Yes Spontaneous unlabored respirations: Yes Mental status: Awake and Calm nausea: No Vomiting: No Anesthesia Complication: No Fluid Hydration Crystalloid volume administer (ml): 100 Total IV fluid infused: 100 Progress Note Anesthesia document: Postop Eval 1 completed: Yes
--- NOTE | 2024-09-29 17:02 | OP.CCLET_ITS ---
09/29/2024 Alonzo Sequeira Md Re : Upper GI endoscopy procedure for Vannessa Perez Dear Fabby This procedure was performed on Sunday, September 29, 2024. My impressions and recommendations are as follows: Impressions : - Large (> 5 mm) esophageal varices. - Portal hypertensive gastropathy. - No gross lesions in the entire examined duodenum. - No specimens collected. Recommendations : - Return patient to [facility] for [facility] care. - Full liquid diet. - Continue present medications. - Patient needs to undergo TIPS procedure due to severe esophageal varices along with severe portal hypertension causing recurrent GI bleeding My findings are described in the full procedure note, which is enclosed. If I can be of further assistance, please feel free to contact me at . Sincerely, Jaime Cintron, 09/29/2024 5:01:32 PM This report has been signed electronically.
--- NOTE | 2024-09-29 17:02 | OP.EGD_ITS ---
Patient Name: Vannessa Perez Procedure Date: 09/29/2024 4:28 PM Date of : 1955 Age: 69 Procedure: Upper GI endoscopy Indications: Acute post hemorrhagic anemia, Melena, Follow-up of esophageal varices Providers: Jaime Cintron DO Medicines: Monitored Anesthesia Care Patient Profile: This is a 69 year old female. Refer to note in patient chart for documentation of history and physical. Patient has symptoms. Complications: No immediate complications. Procedure: Pre-Anesthesia Assessment: - Prior to the procedure, a History and Physical was performed, and patient medications and allergies were reviewed. The patient is competent. The risks and benefits of the procedure and the sedation options and risks were discussed with the patient. All questions were answered and informed consent was obtained. Patient identification and proposed procedure were verified by the physician in the pre-procedure area. Mental Status Examination: alert and oriented. Airway Examination: normal oropharyngeal airway and neck mobility. Respiratory Examination: clear to auscultation. CV Examination: normal. Prophylactic Antibiotics: The patient does not require prophylactic antibiotics. Prior Anticoagulants: The patient has taken no anticoagulant or antiplatelet agents except for NSAID medication. ASA Grade Assessment: II - A patient with mild systemic disease. After reviewing the risks and benefits, the patient was deemed in satisfactory condition to undergo the procedure. The anesthesia plan was to use monitored anesthesia care (MAC). Immediately prior to administration of medications, the patient was re-assessed for adequacy to receive sedatives. The heart rate, respiratory rate, oxygen saturations, blood pressure, adequacy of pulmonary ventilation, and response to care were monitored throughout the procedure. The physical status of the patient was re-assessed after the procedure. After obtaining informed consent, the endoscope was passed under direct vision. Throughout the procedure, the patient's blood pressure, pulse, and oxygen saturations were monitored continuously. The gastroscope was introduced through the mouth, and advanced to the third part of the duodenum. Small bowel enteroscopy was deemed necessary. The upper GI endoscopy was accomplished without difficulty. The patient tolerated the procedure well. Scope In: 4:42:36 PM Scope Out: 4:50:12 PM Total Procedure Duration Time 0 hours 7 minutes 36 seconds Findings: Large (> 5 mm) varices were found in the entire esophagus. They were 7 mm in largest diameter. Severe portal hypertensive gastropathy was found in the entire examined stomach. No gross lesions were noted in the entire examined duodenum. Impression: - Large (> 5 mm) esophageal varices. - Portal hypertensive gastropathy. - No gross lesions in the entire examined duodenum. - No specimens collected. Recommendation: - Return patient to [facility] for [facility] care. - Full liquid diet. - Continue present medications. - Patient needs to undergo TIPS procedure due to severe esophageal varices along with severe portal hypertension causing recurrent GI bleeding Procedure Code(s): --- Professional --- 36456, Small intestinal endoscopy, enteroscopy beyond second portion of duodenum, not including ileum; diagnostic, including collection of specimen(s) by brushing or washing, when performed (separate procedure) CPT copyright 2021 [employer]. All rights reserved. The codes documented in this report are preliminary and upon nurse practitioner physicians assistant review may be revised to meet current compliance requirements. Jaime Cintron DO 09/29/2024 5:01:32 PM This report has been signed electronically. Number of Addenda: 0 Note Initiated On: 09/29/2024 4:28 PM
[2024-09-29] MEDS: Glucerna Shake 120 ML LIQUID PO (18:54)
--- NOTE | 2024-09-29 19:14 | POSTOPAN2_ITS ---
Anesthesia Postop Eval I Sum Postop Eval Completion status Anesthesia document: Postop Eval 1 completed: Yes Anesthesia Postop Eval I Summary Anesthesia Postop Eval I Summary: Anesthesia Postop Eval I: Assessment Summary Airway patent Yes 09/29/24 16:52 TITLE [email or web address].MDOT Spontaneous unlabored Yes 09/29/24 16:52 TITLE INVESTIGATOR.MDOT respirations Mental status Awake,Calm 09/29/24 16:52 TITLE INVESTIGATOR.MDOT nausea No 09/29/24 16:52 TITLE INVESTIGATOR.MDOT Vomiting No 09/29/24 16:52 TITLE INVESTIGATOR.MDOT Anesthesia Postop Eval I: Fluid Summary Crystalloid volume administer 100 09/29/24 16:52 TITLE INVESTIGATOR.MDOT (ml) Colloids volume administered ( ml) Blood Product volume administered (ml) Total IV fluid infused 100 09/29/24 16:52 TITLE INVESTIGATOR.MDOT Anesthesia Postop Eval I: Summary Notes Anesthesia Complication No 09/29/24 16:52 TITLE INVESTIGATOR.MDOT Anesthesia Complication Comment: Post-operative progress note Anesthesia: Postop Eval II Evaluation Mental status: Awake and Calm Pain Level: 0 nausea: No Vomiting: No Complications Anesthesia Complication: No
--- NOTE | 2024-09-29 19:14 | PCM.POSTANE2 ---
Anesthesia Postop Eval I Sum Postop Eval Completion status Anesthesia document: Postop Eval 1 completed: Yes Anesthesia Postop Eval I Summary Anesthesia Postop Eval I Summary: Anesthesia Postop Eval I: Assessment Summary Airway patent Yes 09/29/24 16:52 INSPECTOR FILTERS.MDOT Spontaneous unlabored Yes 09/29/24 16:52 INSPECTOR FILTERS.MDOT respirations Mental status Awake,Calm 09/29/24 16:52 INSPECTOR FILTERS.MDOT nausea No 09/29/24 16:52 INSPECTOR FILTERS.MDOT Vomiting No 09/29/24 16:52 INSPECTOR FILTERS.MDOT Anesthesia Postop Eval I: Fluid Summary Crystalloid volume administer 100 09/29/24 16:52 INSPECTOR FILTERS.MDOT (ml) Colloids volume administered ( ml) Blood Product volume administered (ml) Total IV fluid infused 100 09/29/24 16:52 INSPECTOR FILTERS.MDOT Anesthesia Postop Eval I: Summary Notes Anesthesia Complication No 09/29/24 16:52 INSPECTOR FILTERS.MDOT Anesthesia Complication Comment: Post-operative progress note Anesthesia: Postop Eval II Evaluation Mental status: Awake and Calm Pain Level: 0 nausea: No Vomiting: No Complications Anesthesia Complication: No
--- NOTE | 2024-09-29 19:24 | ANES.CONFIRM ---
Anesthesia: Confirm Documents Multiple Procedures on Account (2) Confirmed Documents: Yes
--- NOTE | 2024-09-29 20:18 | NURSING ---
Per request of Dr. Henry, this RN faxed a face sheet to [facility] at [phone]. Also per request of Dr. Henry, this RN called [facility] radiology and requested they push images to [facility] as well.
[2024-09-29 21:39] LABS: Hematocrit 29.4 % (37-47); Hemoglobin 9.4 g/dL (12.0-15.0)
[2024-09-30 00:33] LABS: Hematocrit 27.9 % (37-47); Hemoglobin 8.8 g/dL (12.0-15.0)
[2024-09-30 04:26] LABS: Hematocrit 30.1 % (37-47); Hemoglobin 9.3 g/dL (12.0-15.0); Immature Granulocytes Count 0.050 X10^3/uL (0.0-0.0); Mean Corp Hgb Conc 30.9 g/dL (32-36); Mean Corpuscular Volume 84.8 fL (81-99); Mean Platelet Vol. 11.9 fl (6.2-12.0); NRBC Flagged by Analyzer 0 % (0-5); POSITIVE COUNT YES; POSITIVE DIFFERENTIAL YES; RBC Distribution Width CV 15.9 % (11.6-14.6); RBC Distribution Width SD 49.7 fl (35.1-43.9); Red Blood Count 3.55 M/mm3 (4.2-5.4); White Blood Count 2.8 K/mm3 (4.4-11.0)
[2024-09-30 04:33] LABS: Prothrombin Time (Protime)PT. 18.2 SECONDS (11.7-14.9)
[2024-09-30 04:48] LABS: Differential Indicated SCAN CRITERIA MET; Platelet Count 48 K/mm3 (150-450)
[2024-09-30 05:00] LABS: AST(SGOT) 15 U/L (<=31); Alanine Aminotransfer ALT/SGPT 21 U/L (<=34); Albumin, Serum 3.3 g/dL (3.4-4.8); Alkaline Phosphatase 75 U/L (35-104); Anion Gap 11 (5-15); BUN 35 mg/dL (4-19); BUN/Creat Ratio 51.2 RATIO (10-20); Bilirubin, Direct 0.73 mg/dL (0.00-0.30); Calcium,Total 9.2 mg/dL (7.6-11.0); Carbon Dioxide 18.5 mmol/L (21.0-32.0); Chloride 106 mmol/L (98-108); Estimated Creatinine Clearance 53.61 ml/min (50-250); Globulin 2.3 g/dL (2.2-4.2); Glucose 88 mg/dL (70-99); Potassium 3.7 mmol/L (3.3-5.1)
[2024-09-30 05:30] LABS: Differential Comment SCANNED
--- NOTE | 2024-09-30 08:15 | DS.PCM_ITS ---
Providers Date of Admission: 09/26/24 Date of Discharge: 09/30/24 Primary Care Physician: Alonzo Sequeira MD Consultations 09/26/24 18:52 Consult: Gastroenterology Routine Consulting Provider: [facility] Reason for Consult: decompensated cirrhosis w/ ascites EMERGENT Consult: No MD Notified: Yes Date Notified: 09/27/24 Time Notified: 06:57 Method of Notification: Text Reason For Visit: DECOMPENSATED CIRRHOSIS W/ASCITES, WEAKNESS Diagnosis Discharge Diagnosis (1) Ascites: Status: Acute Code(s): R18.8 - Other ascites (2) Decompensated cirrhosis: Status: Acute Code(s): K72.90 - Hepatic failure, unspecified without coma; K74.60 - Unspecified cirrhosis of liver (3) Peripheral edema: Status: Acute Code(s): R60.0 - Localized edema (4) Portal hypertension: Status: Chronic Code(s): K76.6 - Portal hypertension (5) Cirrhosis: Status: Chronic Code(s): K74.60 - Unspecified cirrhosis of liver Qualifiers: Hepatic cirrhosis type: unspecified hepatic cirrhosis Ascites presence: with ascites Qualified Code(s): K74.60 - Unspecified cirrhosis of liver; R18.8 - Other ascites (6) Anemia: Status: Acute Code(s): D64.9 - Anemia, unspecified (7) Thrombocytopenia: Status: Acute Code(s): D69.6 - Thrombocytopenia, unspecified Plan Patient is a 69-year-old female who presented [facility] ED on 09/26/2024 with worsening weakness and abdominal distention. 1. 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 Admit under inpatient status to PCU. GI consulted. 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 Recent CPT score 7, class B. MELD sodium score 7, MELD 3.0 is 9 with with TB 0.64, serum sodium 136, INR 1.1, albumin 3.5 and serum creatinine 0.94 is 9 as per labs of 06/19/2024 Discussed with the patient's daughter and . CT abdomen with and without IV contrast reported liver cirrhotic, nonocclusive thrombus in main portal vein, left portal vein, SMV and splenic vein. Multiple gallstones. Moderate splenomegaly with spleen size 17.5 cm. Continue spironolactone and midodrine. Discontinue azathioprine as patient has decompensated cirrhosis. Continue IV Solu-Cortef. 09/28: MELD sodium score 19 at the time of admission, 3 to 4% estimated 90-day mortality. Child score 11, class C with lethargic and sluggish. Patient did not get IV albumin yesterday because nurse discontinued as paracentesis was 1900 mL. It was mainly ordered to prevent SBP and HRS in view of upper GI bleed. 09/28: EGD was done today Impression: - Grade II esophageal varices. Incompletely eradicated. Banded. - Portal hypertensive gastropathy. - A few bleeding angiodysplastic lesions in the stomach. Treated with a heater probe. - No gross lesions in the entire examined duodenum. 09/29: Patient hemoglobin to 6.6/21%. Platelet count 40,000. Discussed with Dr. Cintron. Plan for repeat EGD. If the patient continues to bleed will need to be transferred for emergent TIPS. Discussed about the pros and cons about the TIPS. Patient does not have good physical capacity/functional status therefore evaluation for liver transplant might be challenging. SAAG 2.1, portal hypertensive pattern. Ascitic fluid total cell count 50, polymorphs 20, 47, mononuclears 22 therefore SBP ruled out. 09/30: INR 1.5. Creatinine 0.69, sodium 135 and total bili 1.34. On 09/29 patient had repeat EGD in the evening and Dr. Cintron call me about EGD finding and urgent transfer to tertiary care for TIPS. EGD showed large more than 5 mm esophageal varices, PHG. No gross lesion in the entire examined duodenum. No specimens collected. I called the transfer line and gave signout to the night team and patient was transferred to at 6:50 AM. 2. Pancytopenia with severe anemia and thrombocytopenia with acute on chronic upper GI bleed: Hemoglobin 8.3/hematocrit 26.8%. Platelet count 42K. WBC is low normal 3.8K. For now patient is decompensated with increased portal hypertension. As per , she gets melena for weeks. Dr. Cintron consulted for EGD. She had 4 banding's done by Dr. Dinh in June 2024 which resulted into hypotension dizziness therefore she was reluctant for EGD. I talked to the patient's family that she is not fit for outpatient EGD. 09/28: H&H 8.2/27.7%. Platelet count 42K. 09/29: H&H 6.6/21%. 3. 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 She gets blackish stools once per week. 09/29: Discussed about the multiple thrombosis in portal vein circulation 09/30,H&H stayed above 9, 9.4 to 9.3% after yesterday quality of PRBC transfusion. Platelet count severely low 48K, 4. Hypotension and hypervolemia third volume spacing with severe hypoalbuminemia: IV albumin 25 g every 8 hourly total 3 bags ordered. Patient had paracentesis of 1900 mL yellow-colored fluid. Fluid ordered for analysis including culture. GI bleed and ascites puts high risk for SBP, encephalopathy and HRS and liver decompensation. On IV ceftriaxone. Continue IV PPI twice daily. 09/30: BP has recovered in 100s after IV albumin infusion on 09/28. Acute on chronic debility ? PT/OT/case management consulted. Patient lives at home with , typically has fairly good functional status at baseline. Suspect weakness is primarily due to decompensated cirrhosis as above. Appreciate therapy recommendations. 3. Hypertension/hyperlipidemia ? continue home Coreg at reduced dose of 3.125 mg twice daily for secondary portal hypertension prophylaxis. Continue home Zetia. 4. Hyponatremia ? Sodium 129 on admit, baseline 136-140. Suspect due to decompensated cirrhosis above. Sodium 132. Lactic acidosis 2.1-1.4. 5. Type 2 diabetes mellitus ? Glucose 170 on admit. Last A1c 7.4% on 08/25. Will treat with sliding scale insulin with meals for now, adjust as needed. Hold home glipizide. DVT prophylaxis: SCDs CODE STATUS: Full code, verified Patient transferred to in hemodynamically stable state at 6:50 AM on 09/30/2024 09/27/24 14:53: Fluid Albumin 0.4 09/28/24 17:03: POC Glucose 254 H 09/28/24 20:49: POC Glucose 239 H 09/29/24 04:05: PT 19.3 H, INR 1.6 09/29/24 04:30: WBC 2.2 L, RBC 2.57 L, Hgb 6.6 L, Hct 21.1 L, MCV 82.1, MCH 25.7 L, MCHC 31.3 L D, RDW Std Deviation 49.4 H, RDW Coeff of Joel 16.5 H, Plt Count 40 L*, MPV 12.1 H, Immature Gran % (Auto) 1.400 H, Neut % (Auto) 90.0 H, Lymph % (Auto) 5.0 L, [place] % (Auto) 3.6, Eos % (Auto) 0.0, Baso % (Auto) 0.0, Absolute Neuts (auto) 2.0, Absolute Lymphs (auto) 0.11 L, Nucleated RBC % 0, Sodium 135, Potassium 4.2, Chloride 104, Carbon Dioxide 16.9 L, Anion Gap 14, BUN 33 H, Creatinine 0.71, Estim Creat Clear Calc 53.61, Est GFR (MDRD) Non-Af 93, BUN/Creatinine Ratio 46.5 H, Glucose 186 H, Calcium 9.1, Total Bilirubin 0.82, Direct Bilirubin 0.53 H, AST 12, ALT 21, Alkaline Phosphatase 69, Total Protein 5.9, Albumin 3.7, Globulin 2.2 09/29/24 08:40: Blood Type A NEGATIVE, Antibody Screen NEGATIVE, Crossmatch See Detail 09/29/24 09:39: POC Glucose 206 H Clinical Impression(s) from Imaging Studies Abdomen/Pelvis CT 09/26/24 14:34 IMPRESSION: 1. Extensive nonocclusive thrombus in the portal venous system. 2. Hepatic cirrhosis. 3. Moderate splenomegaly. 4. Cholelithiasis. 5. Diffuse osteopenia of the visualized spine with numerous compression fractures without retropulsed fragments. 6. There is a large amount of ascites. Note: Findings were called to Dr. Escobar in the [facility] emergency department on the afternoon of 09/26/2024 at 16:50 p.m. Reading Location: [place] [address] Chest X-Ray 09/26/24 14:34 IMPRESSION: Possible bibasilar atelectasis. Reading Location: [id number] Medications at Discharge Home Medications calcium 500 mg (as carbonate)-vitamin D3 5 mcg (200 unit) tablet 1 tab PO BIDCM supplement #60 tabs 09/23/18 carvedilol 6.25 mg tablet 6.25 mg PO BID blood pressure 07/15/22 ezetimibe 10 mg tablet 10 mg PO DAILY 07/15/22 glipizide 5 mg tablet 5 mg PO BID diabetes 07/15/22 sucralfate 1 gram tablet 1 g PO 1HR_ACHS 30 days #90 tabs 11/29/22 azathioprine 50 mg tablet 50 mg PO QDAY 1 month #30 tabs 08/25/24 ferrous sulfate 325 mg (65 mg iron) tablet 325 mg PO Q OTHER DAY supplement #60 tabs 08/25/24 pantoprazole 40 mg tablet,delayed release (Protonix) 40 mg PO BID 30 days #60 tabs 08/25/24 ursodiol 500 mg tablet 500 mg PO Q8H 1 month #90 tabs 08/28/24 prednisone 10 mg tablet 10 mg PO DAILY 2 weeks #14 tabs 09/18/24 prednisone 5 mg tablet 5 mg PO DAILY 1 month #30 tabs 09/18/24 spironolactone 25 mg tablet 50 mg PO DAILY diuretic 09/26/24 Physical Exam Narrative Verbal signout by the night team that patient is accepted by Dr. Dillard, corrugator supervisor. Patient got transferred before my shift starts and therefore not physically seen Weight / BMI Weight Weight: 127 lb 10.362 oz Body Mass Index (BMI) 26.8 ABG / Lab / Microbiology Data 09/30/24 03:44 09/30/24 03:44 Laboratory: Laboratory Results - last 24 hr 09/27/24 14:53: Fluid Albumin 0.4 09/29/24 08:40: Blood Type A NEGATIVE, Antibody Screen NEGATIVE, Crossmatch See Detail 09/29/24 09:39: POC Glucose 206 H 09/29/24 18:30: POC Glucose 228 H 09/29/24 21:00: Hgb 9.4 L, Hct 29.4 L 09/29/24 21:39: POC Glucose 207 H 09/30/24 00:19: Hgb 8.8 L, Hct 27.9 L 09/30/24 03:44: WBC 2.8 L, RBC 3.55 L, Hgb 9.3 L, Hct 30.1 L, MCV 84.8, MCH 26.2 L, MCHC 30.9 L, RDW Std Deviation 49.7 H, RDW Coeff of Joel 15.9 H, Plt Count 48 L*, MPV 11.9, Immature Gran % (Auto) 1.800 H, Neut % (Auto) 85.1 H, Lymph % (Auto) 5.3 L, [place] % (Auto) 7.4, Eos % (Auto) 0.4, Baso % (Auto) 0.0, Absolute Neuts (auto) 2.4, Absolute Lymphs (auto) 0.15 L, Nucleated RBC % 0, Differential Comment SCANNED, Platelet Estimate MKD DEC, PT 18.2 H, INR 1.5, Sodium 135, Potassium 3.7, Chloride 106, Carbon Dioxide 18.5 L, Anion Gap 11, BUN 35 H, C reatinine 0.69 L, Estim Creat Clear Calc 53.61, Est GFR (MDRD) Non-Af 95, B UN/Creatinine Ratio 51.2 H, Glucose 88, Calcium 9.2, Total Bilirubin 1.34 H, D irect Bilirubin 0.73 H, AST 15, ALT 21, Alkaline Phosphatase 75, Total Protein 5.6 L, Albumin 3.3 L, Globulin 2.3 Microbiology: Microbiology 09/27/24 14:53 Fluid - Paracentesis (Abd) Gram Stain - Final 09/27/24 14:53 Fluid - Paracentesis (Abd) Body Fluid Culture - Preliminary No growth-Final to follow 09/27/24 14:53 Fluid - Paracentesis (Abd) Anaerobic Culture - Preliminary No growth in 48 hours. D/C Instructions DC O2, CPAP, BIPAP Needs Home O2 Discharge instructions: No Meaningful Use Info Meaningful Use Meaningful Use Diagnoses (Choose all that apply): None applicable Discharge Plan Admission Admit Date/Time: 09/26/24 17:55 Primary Reason for Your Visit: Decompensated cirrhosis with upper GI bleed, needs emergent TIPS Attending Provider: Anthony Henry Primary Care Provider: Alonzo Sequeira Consulting Providers: Dileep Gipson Discharge Orders/Prescriptions Prescriptions: No Action glipizide 5 mg tablet 5 mg PO BID ezetimibe 10 mg tablet 10 mg PO DAILY carvedilol 6.25 mg tablet 6.25 mg PO BID Rx Instructions: must administer with a meal/food ferrous sulfate 325 mg (65 mg iron) tablet 325 mg PO Q OTHER DAY Qty: 60 0RF azathioprine 50 mg tablet 50 mg PO QDAY 30 Days Qty: 30 2RF pantoprazole [Protonix] 40 mg tablet,delayed release (DR/EC) 40 mg PO BID 30 Days Qty: 60 2RF calcium carbonate-vitamin D3 1 TABLET tablet 1 tab PO BIDCM Qty: 60 0RF sucralfate 1 gram Tablet 1 g PO 1HR_ACHS 30 Days Qty: 90 0RF spironolactone 25 MG tablet 50 mg PO DAILY ursodiol 500 mg tablet 500 mg PO Q8H 30 Days Qty: 90 4RF prednisone 10 mg tablet 10 mg PO DAILY 14 Days Qty: 14 0RF Rx Instructions: Starting 09/19/2024, once daily after food prednisone 5 mg tablet 5 mg PO DAILY 30 Days Qty: 30 1RF Rx Instructions: Starting October 03, 2024 after completion of prednisone 10 mg daily prescription Referrals / Follow Up: Alonzo Sequeira MD [Primary Care Provider] - Disposition Disposition (needs filled in before D/C Order can be placed): Acute Care Hospital Charges/Coding Visit Charges Inpatient E&M: 60156 Disch Hosp >30min
== END 2024-09-30 07:00 | disposition short-term general hospital (02) | DRG 432 ==
LOC: ED 18:26 → PCU 18:40
PROVIDERS: Internal Medicine Gastroenterology; Admitting Provider Hospitalist; Emergency Provider Emergency Medicine; PCP Family Medicine; Visit Provider Internal Medicine
PROC: 0DJ08ZZ Inspection of Upper Intestinal Tract, Via Natural or Artificial Opening Endoscopic (ICD-10-PCS; CPT 43235; principal; 2024-09-28 09:55)
DX: K74.69 Other cirrhosis of liver (principal); I81 Portal vein thrombosis; K31.811 Angiodysplasia of stomach and duodenum with bleeding; I85.11 Secondary esophageal varices with bleeding; I82.890 Acute embolism and thrombosis of other specified veins; D61.818 Other pancytopenia; D62 Acute posthemorrhagic anemia; E87.20 Acidosis, unspecified; E87.1 Hypo-osmolality and hyponatremia; K76.6 Portal hypertension; R18.8 Other ascites; K72.90 Hepatic failure, unspecified without coma; E88.09 Other disorders of plasma-protein metabolism, not elsewhere classified; E11.9 Type 2 diabetes mellitus without complications; I10 Essential (primary) hypertension; I95.9 Hypotension, unspecified; E78.00 Pure hypercholesterolemia, unspecified; K31.89 Other diseases of stomach and duodenum; K75.4 Autoimmune hepatitis; R16.1 Splenomegaly, not elsewhere classified; Z79.84 Long term (current) use of oral hypoglycemic drugs; Z79.52 Long term (current) use of systemic steroids; Z87.891 Personal history of nicotine dependence
CPT/HCPCS: 36415; 49083; 71045; 74177; 80048; 80053; 80076; 81001; 82042; 82945; 82962; 83605; 83690; 83880; 85014; 85018; 85025; 85027; 85610; 85730; 86850; 86900; 86901; 87070; 87075; 87205; 88108; 88305; 88313; 89050; 93005; 94668; 97165; 99285; C1889; P9016; P9047; Q9967; A4216; J2405

== ENCOUNTER 2024-10-04 16:07 | Inpatient (IN) | payer MEDICARE, SELFPAY ==
[2024-10-04 16:32] VITALS: BP 107/62; PULSE 89; RESP 17; TEMP 36.3; O2SAT 97
--- NOTE | 2024-10-04 20:59 | HP.PCM_ITS ---
HPI - General General Date of Admission: 10/04/24 Date of Service: 10/04/24 Chief Complaint: Here for rehabilitation. HPI Narrative JAKY PRESTON, is a 69 Female who presents with followin09/26/2024 Admit [facility] weakness, abdominal distention. Ascites, cirrhosis, liver failure 2/2 autoimmune hepatitis. Patient has portal vein thrombosis. EGD showed esophageal varices, recommend transfer to tertiary center for TIPS procedure. 09/30/2024 Admit to of [facility]. Prednisone 5mg daily for autoimmune hepatitis, SLE. Hold anticoagulation for portal vein thrombosis 2/2 concern for gastrointestinal bleed. Consider TIPS procedure for portal hypertension. 10/01/2024 No acute events overnight. Patient declined TIPS procedure. Pantoprazole 40mg iv bid for Upper GI bleed. Consider anticoagulation for portal vein thrombosis. 10/03/2024 No acute events overnight, TIPS procedure unlikely. 10/03/2024 Paracentesis removed 2.6 liters fluid, negative SBP. Decompensated cirrhosis 2/2 new portal vein thrombosis. Hold on TIPS procedure. Lasix 20mg, Aldactone 50mg for liver failure with ascites. Prednisone, Imuran for autoimmune hepatitis. Hold anticoagulation for Portal vein thrombosis. Repeat EGD in 3 to 4 weeks. 10/04/2024 Admit to TCU with debility, here for rehabilitation, strengthening, prior to discharge home with . Will consult Dr. Cintron, will need EGD in 3 to 4 weeks. Will need periodic paracentesis to manage ascites. [facility] Medical History History of immunosuppression therapy History of steroid therapy Post-menopausal Ulcer Hoarseness High cholesterol History of stress test Anemia Hypothyroidism Rheumatoid arthritis Osteoporosis GI bleed Hepatitis Former smoker Non-smoker Irregular heart beat Hypertension Home Medications ?Medication ?Instructions ?Recorded ?Last Taken ?Type calcium 500 mg (as 1 tab PO BIDCM supplement #6 0 tabs 09/23/18 Unknown Rx carbonate)-vitamin D3 5 mcg (200 unit) tablet carvedilol 6.25 mg tablet 6.25 mg PO BID blood pressur e 07/15/22 Unknown History ezetimibe 10 mg tablet 10 mg PO DAILY hyperlipidemi a 07/15/22 Unknown History glipizide 5 mg tablet 5 mg PO BID diabetes 05/03/2 3 Unknown History sucralfate 1 gram tablet 1 g PO 1HR_ACHS 30 days #90 tabs 11/29/22 Unknown Rx ferrous sulfate 325 mg (65 mg 325 mg PO Q OTHER DAY chapin pplement 08/25/24 Unknown Rx iron) tablet #60 tabs pantoprazole 40 mg tablet,delayed 40 mg PO BID gerd 30 days #60 tabs 08/25/24 Unknown Rx release (Protonix) ursodiol 500 mg tablet 500 mg PO Q8H 1 month #90 ta bs 08/28/24 Unknown Rx prednisone 5 mg tablet 5 mg PO DAILY RA 1 month #30 tabs 09/18/24 Unknown Rx spironolactone 25 mg tablet 50 mg PO DAILY diuretic Unknown History azathioprine 50 mg tablet 50 mg PO QDAY RA 10/04/24 Un known History denosumab 60 mg/mL subcutaneous mg subcut osteoporosis 10/04/24 Unknown History syringe furosemide 20 mg tablet (Lasix) 20 mg PO QODAY hyperte nsion 10/04/24 Unknown History Allergy/AdvReac Type Severity Reaction Status Date / Time Sulfa (Sulfonamide Allergy Severe Swelling Verified 09/26/24 13:41 Antibiotics) Family History Other Diabetes Heart disease Surgical History History of esophagogastroduodenoscopy (EGD) History of cataract surgery H/O section Social History (Updated 10/04/24 @ 21:[address] Gabriel Strong MD) household members: spouse Smoking Status: Former smoker alcohol intake: never substance use type: does not use ROS Constitutional Constitutional: Reports weakness; Denies chills, fever(s) or weight gain ENT HEENT: Denies headache(s), nasal congestion or nasal discharge Cardiovascular Cardiovascular: Denies chest pain or palpitations Respiratory/Chest Respiratory/Chest: Denies cough, excessive phlegm production or shortness of breath with exertion Gastrointestinal Gastrointestinal: Denies abdominal pain, nausea or vomiting Genitourinary Genitourinary: Denies dysuria Musculoskeletal Musculoskeletal: Denies joint pain or joint swelling Integumentary Integumentary: Denies rash or wounds Neurologic Neurologic: Denies focal weakness, numbness or tingling Psychiatric Psychiatric: Denies anxiety, auditory hallucinations, depression, homicidal ideation or suicidal ideation Vital Signs Vital Signs Vital Signs: 10/04/24 16:26 10/04/24 16:32 Temperature 97.3 F L Temperature Source Temporal Pulse Rate 89 Pulse Rhythm Irregular Pulse Strength Normal (2+) Respiratory Rate 17 Respiratory Effort Normal Non-Labored Respiratory Depth Normal Respiratory Pattern Normal Blood Pressure 107/62 Blood Pressure Mean 77 Blood Pressure Source Monitor Blood Pressure Position Semi-Fowlers Blood Pressure Location Left Arm Pulse Ox 97 Oxygen Delivery Method Room Air Room Air Physical Exam Const alert General Appearance: cooperative HEENT normocephalic Eyes PERRL and EOMs intact bilaterally Neck supple, no JVD and no carotid bruits Resp normal respiratory effort, normal air movement and clear to auscultation bilaterally Cardio regular rate and regular rhythm GI normal to inspection, nondistended, normoactive bowel sounds, non-tender and non-distended Extremity normal capillary refill General Extremity: Negative for edema Skin no rashes or lesions noted General Skin Exam: no breakdown Psych affect normal Appearance: appropriate Assessment & Plan Assessment/Plan (1) Debility: (2) Decompensated cirrhosis: (3) Autoimmune hepatitis: (4) Portal vein thrombosis: (5) Esophageal varices: (6) Ascites: (7) Portal hypertension: (8) Hypertension: QUALIFIERS: Hypertension type: primary hypertension Qualified Code(s): I10 - Essential (primary) hypertension (9) Hyperlipidemia: (10) Hyponatremia: (11) Type 2 diabetes mellitus with hyperglycemia: PLAN: Plan 69 year old female with below past medical history hospitalized for decompensated liver failure 2/2 autoimmune hepatitis, cirrhosis of liver, esophageal varices, portal hypertension, ascites requiring paracentesis, portal vein thrombosis, patient declined TIPS procedure, admitted to TCU with debility, here for rehabilitation, strengthening, prior to discharge home with . * Debility - PT/OT. * Pain - Tylenol 1000mg q6 prn pain (1-10). * Bowel - senna/colace 1 tablet bid prn. * Adult immunization - Administer pneumonia vaccine, covid vaccine, flu vaccine as appropriate. * DVT prophylaxis - Hold 2/2 esophageal varices, UGIB. * Autoimmune hepatitis - Prednisone 5mg daily, Imuran 50mg daily. * Esophageal varices - Coreg 6.25mg bid, consult Dr. Cintron for surveillance EGD. * Portal vein thrombosis - Consider anticoagulation if EGD clear or reimage to see if PVT resolved on its own. * Hyperlipidemia - Zetia 10mg daily. * Ascites - Furosemide 20mg every other day, Aldactone 50mg daily, ultrasound guided paracentesis as needed. * Diabetes Mellitus II Glipizide 5mg bidcm. * GERD - Pantoprazole 40mg bid.
[2024-10-05 06:18] LABS: Hematocrit 31.1 % (37-47); Hemoglobin 9.7 g/dL (12.0-15.0); Immature Granulocytes Count 0.180 X10^3/uL (0.0-0.0); Mean Corp Hgb Conc 31.2 g/dL (32-36); Mean Corpuscular Volume 83.6 fL (81-99); NRBC Flagged by Analyzer 0 % (0-5); POSITIVE COUNT YES; POSITIVE DIFFERENTIAL YES; RBC Distribution Width CV 17.4 % (11.6-14.6); RBC Distribution Width SD 53.1 fl (35.1-43.9); Red Blood Count 3.72 M/mm3 (4.2-5.4); White Blood Count 3.8 K/mm3 (4.4-11.0)
[2024-10-05 06:24] LABS: Anion Gap 11 (5-15); BUN 21 mg/dL (4-19); BUN/Creat Ratio 53.6 RATIO (10-20); Calcium,Total 8.2 mg/dL (7.6-11.0); Carbon Dioxide 19.8 mmol/L (21.0-32.0); Chloride 104 mmol/L (98-108); Glucose 175 mg/dL (70-99); Potassium 3.9 mmol/L (3.3-5.1)
[2024-10-05 06:30] LABS: Platelet Count 38 K/mm3 (150-450)
--- NOTE | 2024-10-05 07:38 | RAD_ITS ---
PROCEDURE: ABDOMEN SINGLE VIEW 10/05/2024 REASON FOR EXAM: CONSTIPATION. TECHNIQUE: ABDOMEN SINGLE VIEW COMPARISON: CT dated September 26, 2024 FINDINGS: Bowel gas: There is a moderate stool load with constipation. There are no air- fluid levels or dilated small bowel loops. Calcifications are noted in the right upper quadrant consistent with gallstones with the largest measuring 0.4 cm. Phleboliths are noted in the pelvis. There is no acute bony abnormality. RAD/Abdomen Single View IMPRESSION: There is a moderate stool load with constipation. Calcifications are noted in the right upper quadrant consistent with gallstones with the largest measuring 0.4 cm. Reading Location: [facility]
[2024-10-05 08:40] VITALS: BP 110/64; PULSE 97; RESP 14; TEMP 36.4; O2SAT 98
[2024-10-05] MEDS: Senna/Docusate Sodium 1 Tablet PO (08:45)
--- NOTE | 2024-10-05 11:39 | CASEMGMT ---
Social Work SW met with patient to complete initial assessment. Introduced self and role. Verified/updated contacts. Patient confirmed code status as DNR-CCA, no intubation. Educated to [facility] insurance with NRD 10/09 and continued stay is not guaranteed with each review; required to provide a 3-day notice for DC. Pt's goal is to return home with , however, pt is currently a soheila lift. SW will continue to follow for DC planning assistance. Kristin Parham DIVISIONAL MERCHANDISING MANAGER CLINICAL NURSE REVIEWER
[2024-10-05] MEDS: Tuberculin,Purif.prot.deriv. 50 TU/ML Vial 0.1 ML ID (12:47)
[2024-10-05 14:29] VITALS: BMI 25.9
--- NOTE | 2024-10-05 17:11 | RAD_ITS ---
PROCEDURE: SHOULDER MIN 2 VIEWS 10/05/2024 REASON FOR EXAM: PAIN. TECHNIQUE: SHOULDER MIN 2 VIEWS COMPARISON: None. FINDINGS: No evidence of acute fracture or dislocation. Moderate acromioclavicular degenerative changes. Mild glenohumeral degenerative changes. RAD/Shoulder min 2 Views IMPRESSION: No acute osseous abnormalities. Osteoarthrosis. Reading Location: [id number]
--- NOTE | 2024-10-05 20:29 | NURSING ---
Addendum entered by Casey Michael 10/05/24 23:27: TELEPHONE ORDER READ BACK, LACTULOSE ENEMA 200 GRAMS IF STILL NO RELIEF FROM SSE, TELEPHONE ORDER READ BACK SENNA DOSAGE ADJUSTED TO 2 TAB PER DOSE BID. PER ORDER SSE ADMINISTERED AT 2000 WITH MODERATE STOOL AND RELIEF. PATIENT DECLINED LACTULOSE ENEMA DUE TO FEELING BETTER AFTER SSE. Original Note: New order received via secure text message from Dr. Strong to administer 200 grams Lactulose enema if soap suds enema does not have results. Order clarified via secure text message. Updated Dr. Strong via secure text message related to patient accepting soap suds enema with moderate hard stool results.
[2024-10-05] MEDS: Senna/Docusate Sodium 1 Tablet 2 TABLET PO (22:37)
--- NOTE | 2024-10-06 04:54 | NURSING ---
Patient C/O Discomfort With Attempting To Have A BM. Patient KUB Shows Moderate Stool, and Constipation. Notified , via Secure Message System. Telephone Order Read Back, Ordered SSE For Patient. SSE Administered At 1999, With Moderate Hard Stool. Telephone Order, Read Back Ordered Lactulose Enema if Discomfort Continues After SSE, Also Ordered Increase Of Senna / Docusate to 2 Tablets PO BID. Patient Declined Lactulose Enema, Patient States She Feels Better, No More Enema Notified RN (NR) Will Continue To Monitor.
--- NOTE | 2024-10-06 08:44 | PCM.PN.DRR ---
Documented by User: Edouard Bone 10/06/24 15:26 TCU RX Drug Regimen Review Subjective/Objective Subjective/Objective Subjective: TCU admission 10/04/24 69 YOF hospitalized 09/26/24 for decompensated liver failure 2/2 autoimmune hepatitis, cirrhosis of liver, esophageal varices, portal hypertension, ascites requiring paracentesis, portal vein thrombosis, patient declined TIPS procedure. Admitted to TCU with debility, here for rehabilitation, strengthening, prior to discharge home with . Objective: Allergies Sulfa (Sulfonamide Antibiotics) Allergy (Severe, Verified 09/26/24 13:41) Swelling Current Medications Generic Name Dose Route Start Last Admin Trade Name Freq PRN Reason Stop Dose Admin Acetaminophen 1,000 mg 10/04/24 21:18 Acetaminophen 500 Mg Tablet PO Q6H PRN PRN Pain Score 1-10 Azathioprine 50 mg 10/08/24 10:00 Azathioprine 50 Mg Tablet PO DAILY BAM Carvedilol 6.25 mg 10/05/24 08:00 10/05/24 17:45 Carvedilol 6.25 Mg Tablet PO 6.25 mg BIDCM BAM Administration Protocol Ezetimibe 10 mg 10/05/24 10:00 10/05/24 08:42 Ezetimibe 10 Mg Tablet PO 10 mg DAILY BAM Administration Furosemide 20 mg 10/05/24 10:00 10/05/24 08:41 Furosemide 20 Mg Tablet PO 20 mg QODAY BAM Administration Protocol Glipizide 5 mg 10/04/24 22:00 10/05/24 17:45 Glipizide 5 Mg Tablet PO 5 mg BIDCM BAM Administration Pantoprazole Sodium 40 mg 10/04/24 22:00 10/05/24 22:38 Pantoprazole Sodium 40 Mg Tablet PO 40 mg BID BAM Administration Prednisone 7.5 mg 10/05/24 08:00 10/05/24 08:42 Prednisone 5 Mg Tablet PO 7.5 mg DAILYCM BAM Administration Senna/Docusate Sodium 2 tablet 10/05/24 22:00 10/05/24 22:37 Senna/Docusate Sodium 1 Tablet PO 2 tablet BID BAM Administration Spironolactone 50 mg 10/05/24 10:00 10/05/24 08:43 Spironolactone 50 Mg Tablet PO 50 mg DAILY BAM Administration Protocol Tuberculin PPD 0.1 ml 10/12/24 10:00 Tuberculin,Purif.Prot.Deriv. 50 Tu/Ml Vial ID 10/12/24 10:01 X1 ONE Problem List Type 2 diabetes mellitus with hyperglycemia (Acute) Hyponatremia (Acute) Hyperlipidemia (Acute) Esophageal varices (Acute) Portal vein thrombosis (Acute) Debility (Acute) Ascites (Acute) Decompensated cirrhosis (Acute) Portal hypertension (Chronic) Autoimmune hepatitis (Chronic) Hypertension (Chronic) Vital Signs Temp Pulse Resp BP Pulse Ox O2 Del Method 97.6 F L 97 14 110/64 98 Room Air 10/05/24 08:40 10/05/24 08:40 10/05/24 08:40 10/05/24 08:40 10/05/24 08:40 10/05/24 10:00 Oxygen Delivery Method Room Air Weight: 56.155 kg Body Mass Index (BMI) 25.9 Sodium 134 mmol/L (133-145) 10/05/24 05:06 Potassium 3.9 mmol/L (3.3-5.1) 10/05/24 05:06 Chloride 104 mmol/L (98-108) 10/05/24 05:06 Carbon Dioxide 19.8 mmol/L (21.0-32.0) L 10/05/24 05:06 Anion Gap 11 (5-15) 10/05/24 05:06 BUN 21 mg/dL (4-19) H 10/05/24 05:06 Creatinine 0.39 mg/dL (0.70-1.20) L 10/05/24 05:06 Est GFR (MDRD) Non-Af 108 (>60) 10/05/24 05:06 BUN/Creatinine Ratio 53.6 RATIO (10-20) H 10/05/24 05:06 Glucose 175 mg/dL (70-99) H 10/05/24 05:06 Assessment/Plan: 1. Pain: Tylenol 1000 mg PO Q6H prn pain (1-10). No prn doses given at this time. Please monitor total daily intake of acetaminophen and pain levels. 2. Bowel: Senna/Colace 1 tablet PO BID. Please monitor for constipation, diarrhea, and electrolyte disturbances. Last bowel movement: 10/03/24 3. DVT prophylaxis: Hold at this time due to esophageal varices/upper GI bleed. Please monitor for increased swelling and erythema in the legs. 4. Autoimmune hepatitis: Prednisone 5 mg PO daily, Azathioprine 50 mg daily. Please monitor for nausea, vomiting, and low white blood cell counts with a CBC monthly. 5. Esophageal varices: Carvedilol 6.25 mg PO BID. Please monitor for bradycardia, dizziness, and headaches. BP: 107/62-110/64, HR: 89-97 6. Hyperlipidemia: Ezetimibe 10 mg PO daily. Please monitor for diarrhea, muscle/joint pain and a CMP every 6 months. LDL: 130 (08/25/24), Total Cholesterol: 195 (08/25/24), HDL: 35 (08/25/24) 7. Ascites: Furosemide 20 mg PO every other day, Spironolactone 50 mg PO daily. Please monitor for electrolyte disturbances, serum potassium levels (3.9 mmol/L), serum sodium levels (134 mmol/L), developing infection (fever, increased WBC, malaise/AMS), urine output, and daily weight. 8. Diabetes mellitus type 2: Glipizide 50 mg PO BIDCM. Please monitor A1c values (7.4 08/25/24), blood glucose values (139-229 in last 24 hours), and S/S of hypoglycemia. 9. GERD: Pantoprazole 40 mg PO BID. Please monitor for constipation, diarrhea and S/S of breakthrough indigestion. Assessment/Plan for indications treated with psychotropic medications: Resident is not prescribed scheduled or prn psychotropic medications at this time of this drug regimen review. Medical chart and medication regimen reviewed. The following medication irregularities or issues were identified: None Date Date of Note: 10/06/24 Documented by User: Dr. Gabriel Strong MD 10/06/24 16:58 TCU RX Drug Regimen Review Provider Comments Provider responsibility Provider Comments to Recommendations by Pharmacy Agree
[2024-10-06 10:00] VITALS: PULSE 90; RESP 16
[2024-10-06] MEDS: Senna/Docusate Sodium 1 Tablet 2 TABLET PO ×2 (10:04→21:26)
[2024-10-06 10:19] VITALS: BP 110/61; PULSE 96; RESP 16; TEMP 36.9; O2SAT 99
--- NOTE | 2024-10-06 10:55 | NURSING ---
GOT PT UP TO BSC. PT IS A HEAVY 2-3 ASSIST BUT CAN STAND A SHORT TIME. GOT PT THEN UP TO RECLINER. HEELS AND ARMS ELEVATED WITH PILLOWS. CALL LIGHT AND TABLE WITHIN REACH. PT TOLERATED FAIR.
--- NOTE | 2024-10-06 11:37 | NURSING ---
Catering Sous Chef Note; Activity Asset: Complete
[2024-10-06 16:00] VITALS: BP 105/55; PULSE 88
[2024-10-07] MEDS: Senna/Docusate Sodium 1 Tablet 2 TABLET PO ×2 (11:04→20:13)
[2024-10-07 16:00] VITALS: BP 101/52; PULSE 88; RESP 16; TEMP 36.8; O2SAT 97
[2024-10-08] MEDS: Senna/Docusate Sodium 1 Tablet 2 TABLET PO (09:58)
[2024-10-08 16:00] VITALS: BP 106/52; PULSE 89; RESP 17; TEMP 36.8; O2SAT 97
--- NOTE | 2024-10-09 09:09 | CASEMGMT ---
Social Work SW received message to contact about insurance and DC plans. SW phoned to provide information. Educated [facility] insurance with NRD 10/09 and the review process; insurance providing a 3-day notice for DC. concerned about the DC plan with little notice. NATHANIEL explains the goal is to discuss DC plans and options prior to needing a plan in place. Explained the options are home with skilled HHC and possible hired [facility] OOP cost or SNF part B therapies with room and board OOP. Provided estimated pricing for each option. Explained IDT will hold a POC meeting this week to further discuss pt's progress in therapy and recommendations for DC. appreciative of information. Kristin Parham ATTENDING PATHOLOGIST GRAPHIC USER INTERFACE DESIGNER
--- NOTE | 2024-10-09 09:25 | NURSING ---
Offered covid vaccine, VIS provided. Resident declines.
[2024-10-09] MEDS: Senna/Docusate Sodium 1 Tablet 2 TABLET PO ×2 (09:57→20:03)
[2024-10-09 10:06] VITALS: BP 139/87; PULSE 87; RESP 16; TEMP 36.7; O2SAT 94
[2024-10-09 13:00] VITALS: PULSE 94; RESP 16; O2SAT 95
--- NOTE | 2024-10-09 16:50 | RAD_ITS ---
PROCEDURE: CHEST PA AND LATERAL 10/09/2024 REASON FOR EXAM: LOWER SIDED CRACKLES. TECHNIQUE: CHEST PA AND LATERAL COMPARISON: 09/26/2024 FINDINGS: Lungs/Pleura: Posterior left basilar airspace opacity, may represent consolidation and/or atelectasis, versus a small pleural effusion. Right lung is clear. No pneumothorax. Heart/Mediastinum: Mildly enlarged. Bones/Soft tissues: Mild degenerative changes of the spine. Qualitative osteopenia. RAD/Chest PA and Lateral IMPRESSION: Posterior left lung base opacity may represent a small pleural effusion/atelect asis, with coexisting consolidation not excluded. Mild cardiomegaly. Reading Location: [id number]
[2024-10-09 17:42] VITALS: BP 130/74; PULSE 94
[2024-10-10] MEDS: Senna/Docusate Sodium 1 Tablet 2 TABLET PO (08:17)
[2024-10-10 08:27] VITALS: BP 106/58; PULSE 92; RESP 16; TEMP 37.2; O2SAT 98
[2024-10-10 14:26] VITALS: BMI 26.9
--- NOTE | 2024-10-10 15:04 | CHAPLAIN ---
Type of Pastoral Visit _x__ Initial Visit ___ Follow-up Visit ___ On-call Visit ___ General Patient Visit ___ Spiritual Assessment ___ Family Conference ___ Bereavement ___ Rapid Response ___ Code Blue ___ Other (describe below) Pastoral Care Referral From _x__ Patient ___ Family ___ Nurse ___ Physician ___ Library Circulation Department Chief ___ Vice President Business & Corporate Development ___ Other (describe below) Sacrament/Intervention _x__ Active listening ___ Anointing ___ Cheondoism ___ Bereavement ___ Communion _x__ Pamela exploration ___ _x__ Life review _x__ Prayer ___ Reconciliation ___ Sacrament of Sick _x__ Supportive presence ___ Wedding ___ Other (describe below) Pastoral Comments patient is fairly immobile but awake as she watches TV; pt acknowledges some anxiety and discouragement; pt would prefer to be at home but accepts this time for some hope of improvement; pt's family is on vacation and she looks forward to their return this weekend; pt is asked about how she is coping and what brings her some contentment or peace; pt says that her grandson is first on that list; grandson is 8 yrs old and very attentive to patient; pt also mentions prayer and looking to God for help; pt was tearful at times as she is asked about her situation; supportive presence, prayer, and concern given to patient
[2024-10-10 17:45] VITALS: BP 104/57; PULSE 88
[2024-10-10 20:39] VITALS: PULSE 88; RESP 16; O2SAT 96
[2024-10-11 05:56] VITALS: RESP 16
[2024-10-11] MEDS: Senna/Docusate Sodium 1 Tablet 2 TABLET PO ×2 (07:56→20:45)
--- NOTE | 2024-10-11 08:37 | NURSING ---
Hard Tile Setter Note; MDS for 10/11/2024 Complete
--- NOTE | 2024-10-11 09:45 | CASEMGMT ---
Social Work IDT met with patient and at bedside, and dtr via conference call for care plan meeting. Discussed patient's progress in PT/OT/SN/RDN. Educated to [facility] insurance with NRD 10/16 and continued stay is not guaranteed with each review. Provided pt/family with written communication of insurance process and copay coverage during stay. Pt graduated off soheila yesterday and now a mod-max x2 assist. SW broached conversation of needing an alternative DC plan, i.e. SNF. Educated to OOP cost with room and board and part B therapies covered by insurance. SW offered list of SNFs in preferred geographical area, INN with pt?s insurance, including quality and resource data via [employer] Guide. /dtr agreed. SW provided list. Answered questions pertaining to cost and other option of paying privately in TCU or DC home. Provided list of private duty [employer]SE [employer]. stated children are coming home this weekend and will discuss plans, then notify this worker on 10/16. SW will continue to follow for DC planning. Kristin Parham MSW NATURAL HISTORY COLLECTIONS CURATOR
--- NOTE | 2024-10-11 10:42 | CASEMGMT ---
Social Work SW completed BIMS () and PHQ-2 () for MDS assessment. Kristin Parham SHIFT MECHANIC COPY READER
[2024-10-11 14:02] VITALS: BP 87/50; PULSE 68; RESP 16; TEMP 36.8; O2SAT 100
[2024-10-12 05:51] LABS: Hematocrit 28.7 % (37-47); Hemoglobin 8.9 g/dL (12.0-15.0); Immature Granulocytes Count 0.050 X10^3/uL (0.0-0.0); Mean Corp Hgb Conc 31.0 g/dL (32-36); Mean Corpuscular Volume 84.7 fL (81-99); Mean Platelet Vol. 13.0 fl (6.2-12.0); NRBC Flagged by Analyzer 0 % (0-5); POSITIVE COUNT YES; POSITIVE DIFFERENTIAL YES; RBC Distribution Width CV 17.8 % (11.6-14.6); RBC Distribution Width SD 55.4 fl (35.1-43.9); Red Blood Count 3.39 M/mm3 (4.2-5.4); White Blood Count 2.7 K/mm3 (4.4-11.0)
[2024-10-12 06:07] LABS: Differential Indicated SCAN CRITERIA MET; Platelet Count 45 K/mm3 (150-450)
--- NOTE | 2024-10-12 06:10 | NURSING ---
Lab called with critical lab platelet count of 45. Written communication left for Dr. Strong.
[2024-10-12 06:22] LABS: Anion Gap 11 (5-15); BUN 14 mg/dL (4-19); BUN/Creat Ratio 26.4 RATIO (10-20); Calcium,Total 8.1 mg/dL (7.6-11.0); Carbon Dioxide 21.9 mmol/L (21.0-32.0); Chloride 100 mmol/L (98-108); Estimated Creatinine Clearance 53.84 ml/min (50-250); Glucose 72 mg/dL (70-99); Potassium 3.9 mmol/L (3.3-5.1)
--- NOTE | 2024-10-12 07:00 | US_ITS ---
PROCEDURE: PARACENTESIS WITH US 10/12/2024 REASON FOR EXAM: THERAPEUTIC. Paracentesis. TECHNIQUE: PARACENTESIS WITH US COMPARISON: None. FINDINGS: Procedure: Following informed consent, and using standard sterile technique, a therapeutic paracentesis was performed under ultrasound guidance. A skin site of the left lower quadrant of the abdomen was selected. 2% lidocaine local anesthesia was followed by placement of a 5 Swedish catheter into the fluid collection. Approximately 2550 mL clear light yellow fluid was successfully removed. No complication was encountered, the patient left the department in good condition without significant complaint. US/Paracentesis with US IMPRESSION: Successful left abdominal paracentesis. Reading Location: [place] [id number]
--- NOTE | 2024-10-12 07:44 | NURSING ---
Addendum entered by Donna Gould 10/12/24 08:18: Paracentesis scheduled for 1330 today, updated resident. Original Note: Spoke with US staff, they are planning to do paracentesis today, not sure what time, probably in the afternoon.
[2024-10-12] MEDS: Senna/Docusate Sodium 1 Tablet 2 TABLET PO ×2 (08:28→20:03)
[2024-10-12 08:39] VITALS: BP 109/67; PULSE 95; RESP 16; TEMP 37.4; O2SAT 93
[2024-10-12 09:09] LABS: Prothrombin Time (Protime)PT. 16.3 SECONDS (11.7-14.9)
[2024-10-12 10:16] VITALS: TEMP 36.9
[2024-10-12] MEDS: Tuberculin,Purif.prot.deriv. 50 TU/ML Vial 0.1 ML ID (11:54)
[2024-10-12 13:20] VITALS: PULSE 84; RESP 96; O2SAT 96
--- NOTE | 2024-10-12 14:14 | NURSING ---
PT LEFT FLOOR BY WHEEL CHAIR AT 1330 FOR A PARACENTESIS.
--- NOTE | 2024-10-12 15:00 | NURSING ---
PT RETURNED TO ROOM BY WHEEL CHAIR AT 1445 FROM PARACENTESIS, 2550 WAS REMOVED.
[2024-10-12 18:07] VITALS: BP 98/44; PULSE 86
[2024-10-13 10:03] VITALS: BP 90/57; PULSE 89; RESP 16; TEMP 36.6; O2SAT 98
[2024-10-13] MEDS: Senna/Docusate Sodium 1 Tablet 2 TABLET PO (10:13)
[2024-10-13 16:34] VITALS: BP 94/54; PULSE 86
[2024-10-13] MEDS: Albumin Human 25% (100 mL) 25 GM/100 ML BAG IV ×2 (19:38→21:19)
[2024-10-14] MEDS: Senna/Docusate Sodium 1 Tablet 2 TABLET PO ×2 (09:00→22:52)
[2024-10-14 16:00] VITALS: BP 91/51; PULSE 90; RESP 16; TEMP 36.7; O2SAT 97
[2024-10-14] MEDS: 0.9% Saline Lock 10 ML Syringe IV (22:57)
[2024-10-15] MEDS: Senna/Docusate Sodium 1 Tablet 2 TABLET PO ×2 (08:11→20:48)
[2024-10-15 08:46] VITALS: BP 98/54; PULSE 99; RESP 18; TEMP 36.3; O2SAT 99
[2024-10-15 10:00] VITALS: PULSE 77; RESP 16; O2SAT 97
[2024-10-15] MEDS: 0.9% Saline Lock 10 ML Syringe IV (20:55)
--- NOTE | 2024-10-16 07:30 | RAD_ITS ---
PROCEDURE: ABDOMEN SINGLE VIEW 10/16/2024 REASON FOR EXAM: CONSTIPATION TECHNIQUE: ABDOMEN SINGLE VIEW COMPARISON: Prior study dated October 05, 2024. FINDINGS: Bowel gas: Large amount of fecal material is seen throughout the colon. Calcifications: Tiny calcifications are once again seen in the right upper quadrant. These may represent calcified gallstones. Bones: There are degenerative changes of the spine. Other: Marked degree of osteoarthritis of both hip joints worse on the right side and possible avascular necrosis. RAD/Abdomen Single View IMPRESSION: Large amount of fecal material seen throughout the colon. Stable examination. Reading Location: [id number]
[2024-10-16 07:51] VITALS: PULSE 98; RESP 16
[2024-10-16] MEDS: Senna/Docusate Sodium 1 Tablet 2 TABLET PO ×2 (09:20→20:27)
[2024-10-16] MEDS: Magnesium Citrate 300 ML PO (09:25)
[2024-10-16] MEDS: 0.9% Saline Lock 10 ML Syringe IV ×2 (09:34→20:29)
[2024-10-16 09:35] VITALS: BP 100/53; PULSE 69; RESP 16; TEMP 37.4; O2SAT 92
--- NOTE | 2024-10-16 14:55 | NURSING ---
KUB DONE DUE TO ABDOMINAL BEING EXTENDED AND NO BM FOR 3 DAYS.KUB POSITIVE FOR STOOL,NEW ORDER FOR MAG CITRATE. WITH POSITIVE RESULTS. FAMILY AWARE
[2024-10-16 17:28] VITALS: BP 104/64; PULSE 97
[2024-10-16] MEDS: Arthritis Pain Compound 60 CLICK TUBE TOPICAL (20:26)
--- NOTE | 2024-10-17 06:55 | MDS.RN ---
Information for the MDS was obtained from review of the clinical record, interview of resident, staff, and direct observation of resident?s care.
[2024-10-17 08:18] VITALS: BP 97/63; PULSE 93; RESP 16; O2SAT 98
[2024-10-17] MEDS: Arthritis Pain Compound 60 CLICK TUBE TOPICAL ×2 (08:28→20:50)
--- NOTE | 2024-10-17 08:33 | NURSING ---
Pt BP 97/[address] Strong notified and received order to hold Coreg, Aldactone, and Lasix order read back.
[2024-10-17 13:01] VITALS: BMI 25.0
[2024-10-17 15:39] VITALS: TEMP 37.1
--- NOTE | 2024-10-17 16:00 | NURSING ---
Addendum entered by Angeline Llanos 10/17/24 16:44: Received phone call from Dr. Le office and no record or pneumonia vaccine. Updated pt and pt wants to wait until she see primary doctor before receiving Pneumonia Vaccine. Original Note: Dr. Sequeira's office called regarding Pneumonia Vaccine history. LVM with Nurse awaiting return call
[2024-10-17 17:12] VITALS: BP 89/55; PULSE 90
--- NOTE | 2024-10-17 17:13 | NURSING ---
Pt BP 89/[address] Strong updated N.O. received to hold Coreg and Discontinue Fluid restriction. Order read back.
[2024-10-17 22:00] VITALS: PULSE 81; RESP 15; O2SAT 98
--- NOTE | 2024-10-18 02:20 | NURSING ---
While medical staff assistant were changing and repositioning pt this AM, pt suddenly vomited. This nurse entered room to see pt had vomited up what looked to be a fleshy substance, about 6 inches long x an inch or so wide, that was pale and tube-like. Pt stated stomach felt full and that she threw up because we were stuffing her full of water. (Staff have been encouraging fluids d/t trending low BPs.) FUR BLOWER OPERATOR gave pt emesis bag and pt denied any further needs at this time, stating she felt better after throwing up. Call light and personal belongings within reach.
--- NOTE | 2024-10-18 07:30 | NURSING ---
NOTIFIED OF TISSUE THAT WAS THROWN UP AND SEEN. NEW ORDER TO SEND TISSUE FOR TESTS. RN AWARE
--- NOTE | 2024-10-18 07:35 | SOF_PTH ---
PATIENT: JAKY PRESTON LOC: [facility] U#:[id number] AGE/SX: 69/F ROOM: [facility] RE10/04/[address]: Dr. Gabriel Strong MD : [id number] BED: 1 DIS: 10/23/2024 SPEC #: [id number] RECD: 10/18/24 08:57 STATUS: KULWANT REMauricio #: [id number] LATHA: 10/18/24 07:[address]: Gabriel Strong [place] DEPT: SURGICAL PATHOLOGY RECD BY: Hugh Wray ENTERED: 10/18/24 13:14 SP TYPE: SOFT TISS OTHR DR: Alonzo Sequeira MD Tissues: A - Soft tissues, NOS Procedures: Surgery Specimen Level IV HEADER OPERATION: Not noted PRE-OP DIAGNOSIS: Cirrhosis TISSUE SUBMITTED: A- Vomited tissue MICROSCOPIC DIAGNOSIS A. Tissue, vomited: - Degenerated squamous mucosa with hyperkeratosis. MICROSCOPIC DESCRIPTION Slides are reviewed. GROSS DESCRIPTION A. Received fresh and subsequently placed in formalin labeled with the patient's name and date of is an 11.5 x 6.3 x <0.1 cm ramos-white, focally congested, irregular and translucent portion of somewhat membranous tissue. Liquor Tester sections are submitted in 1 cassette. LA 10/18/2024 CPT:79290
[2024-10-18] MEDS: Arthritis Pain Compound 60 CLICK TUBE TOPICAL ×2 (09:31→23:12)
[2024-10-18 09:39] VITALS: BP 96/54; PULSE 107; RESP 14; TEMP 37.1; O2SAT 98
--- NOTE | 2024-10-18 09:39 | NURSING ---
ALL BP MEDS HELD DUE TO PROTOCOL AND BP LOW. PT REFUSED STOOL SOFTENERS.
[2024-10-18 09:55] LABS: Pathology Specimen Additional SEE PATHOLOGY REPORT
[2024-10-18 14:50] VITALS: PULSE 92; RESP 16; O2SAT 97
[2024-10-18 16:00] VITALS: BP 98/54; PULSE 88
[2024-10-19 07:56] LABS: Hematocrit 29.5 % (37-47); Hemoglobin 9.2 g/dL (12.0-15.0); Immature Granulocytes Count 0.100 X10^3/uL (0.0-0.0); Mean Corp Hgb Conc 31.2 g/dL (32-36); Mean Corpuscular Volume 83.8 fL (81-99); Mean Platelet Vol. 12.1 fl (6.2-12.0); NRBC Flagged by Analyzer 0 % (0-5); POSITIVE COUNT YES; POSITIVE DIFFERENTIAL YES; Platelet Count 53 K/mm3 (150-450); RBC Distribution Width CV 18.2 % (11.6-14.6); RBC Distribution Width SD 54.8 fl (35.1-43.9); Red Blood Count 3.52 M/mm3 (4.2-5.4); White Blood Count 3.6 K/mm3 (4.4-11.0)
[2024-10-19] MEDS: Senna/Docusate Sodium 1 Tablet 2 TABLET PO ×2 (08:25→23:06)
[2024-10-19] MEDS: Arthritis Pain Compound 60 CLICK TUBE TOPICAL ×2 (08:25→23:06)
[2024-10-19 08:30] VITALS: BP 94/60; PULSE 108; RESP 16; TEMP 37.1; O2SAT 96
[2024-10-19 08:44] LABS: Anion Gap 10 (5-15); BUN 19 mg/dL (4-19); BUN/Creat Ratio 37.5 RATIO (10-20); Calcium,Total 8.4 mg/dL (7.6-11.0); Carbon Dioxide 25.3 mmol/L (21.0-32.0); Chloride 98 mmol/L (98-108); Estimated Creatinine Clearance 48.34 ml/min (50-250); Glucose 109 mg/dL (70-99); Potassium 3.9 mmol/L (3.3-5.1)
[2024-10-19 17:41] VITALS: BP 106/73; PULSE 101
[2024-10-20] MEDS: Senna/Docusate Sodium 1 Tablet 2 TABLET PO (08:31)
[2024-10-20] MEDS: Arthritis Pain Compound 60 CLICK TUBE TOPICAL ×2 (08:31→20:53)
[2024-10-20 08:39] VITALS: BP 91/51; PULSE 105; RESP 15; TEMP 36.9; O2SAT 96
--- NOTE | 2024-10-20 12:54 | CASEMGMT ---
Discharge Planning A list of SNF providers including quality and resource use data and consistent with the patient's preferred geographic region, medical needs, and insurance network were provided via text message to pts daughter (Lila) from the [employer] Guide link. Anayeli Hernandez, Discharge Planning Asst.
[2024-10-20 13:39] VITALS: BP 96/56; PULSE 98
--- NOTE | 2024-10-20 13:42 | DS.PCM_ITS ---
Providers Date of Admission: 10/04/24 Primary Care Physician: Alonzo Sequeira MD Consultations 10/04/24 21:18 Consult: Gastroenterology Routine Consulting Provider: [facility] Reason for Consult: EGD esophageal varices in 3 weeks, consider AC PVT. EMERGENT Consult: No Notified: Yes Date Notified: 10/05/24 Time Notified: 09:00 Method of Notification: Text 10/20/24 12:54 Consult: Hospice / Palliative Care Routine Consulting Provider: [facility] Reason for Consult: PALLIATIVE: pancytopenia, Esophageal varices,Unspecified cirrhosis of liver EMERGENT Consult: No Notified: Yes Date Notified: 10/19/24 Time Notified: 16:54 Method of Notification: Text Reason For Visit: CIRRHOSIS Diagnosis Discharge Diagnosis (1) Debility: Status: Acute Code(s): R53.81 - Other malaise (2) Decompensated cirrhosis: Status: Acute Code(s): K72.90 - Hepatic failure, unspecified without coma; K74.60 - Unspecified cirrhosis of liver (3) Autoimmune hepatitis: Status: Chronic Code(s): K75.4 - Autoimmune hepatitis (4) Portal vein thrombosis: Status: Acute Code(s): I81 - Portal vein thrombosis (5) Esophageal varices: Status: Acute Code(s): I85.00 - Esophageal varices without bleeding (6) Ascites: Status: Inactive Code(s): R18.8 - Other ascites (7) Portal hypertension: Status: Chronic Code(s): K76.6 - Portal hypertension (8) Hypertension: Status: Chronic Code(s): I10 - Essential (primary) hypertension Qualifiers: Hypertension type: primary hypertension Qualified Code(s): I10 - Essential (primary) hypertension (9) Hyperlipidemia: Status: Acute Code(s): E78.5 - Hyperlipidemia, unspecified (10) Hyponatremia: Status: Acute Code(s): E87.1 - Hypo-osmolality and hyponatremia (11) Type 2 diabetes mellitus with hyperglycemia: Status: Acute Code(s): E11.65 - Type 2 diabetes mellitus with hyperglycemia Plan 69 year old female with below past medical history hospitalized for decompensated liver failure 2/2 autoimmune hepatitis, cirrhosis of liver, esophageal varices, portal hypertension, ascites requiring paracentesis, portal vein thrombosis, patient declined TIPS procedure, admitted to TCU with debility, here for rehabilitation, strengthening, prior to discharge home with . * Debility - PT/OT. * Pain - Tylenol 1000mg q6 prn pain (1-10). * Bowel - senna/colace 1 tablet bid prn. * Adult immunization - Administer pneumonia vaccine, covid vaccine, flu vaccine as appropriate. * DVT prophylaxis - Hold 2/2 esophageal varices, UGIB. * Autoimmune hepatitis - Prednisone 5mg daily, Imuran 50mg daily. * Esophageal varices - Coreg 6.25mg bid, consult Dr. Cintron for surveillance EGD. * Portal vein thrombosis - Consider anticoagulation if EGD clear or reimage to see if PVT resolved on its own. * Hyperlipidemia - Zetia 10mg daily. * Ascites - Furosemide 20mg every other day, Aldactone 50mg daily, ultrasound guided paracentesis as needed. * Diabetes Mellitus II Glipizide 5mg bidcm. * GERD - Pantoprazole 40mg bid. Medications at Discharge Home Medications ezetimibe 10 mg tablet 10 mg PO DAILY hyperlipidemia 07/15/22 pantoprazole 40 mg tablet,delayed release (Protonix) 40 mg PO BID gerd 30 days #60 tabs 08/25/24 azathioprine 50 mg tablet 50 mg PO QDAY RA 10/04/24 acetaminophen 500 mg tablet 1,000 mg (2 x 500 mg) PO Q6H PRN PRN Pain Score 1-10 #0 tabs 10/20/24 furosemide 20 mg tablet 20 mg PO 1200 30 days #30 tabs 10/20/24 glipizide 5 mg tablet 5 mg PO 0800 #0 tabs 10/20/24 prednisone 5 mg tablet 7.5 mg (1.5 x 5 mg) PO DAILYCM 30 days #45 tabs 10/20/24 sennosides 8.6 mg-docusate sodium 50 mg tablet (Stimulant Laxative Plus) 2 tab PO BID 30 days #120 tabs 10/20/24 spironolactone 50 mg tablet 50 mg PO DAILY 30 days #30 tabs 10/20/24 Hospital Course Operations None Procedures Paracentesis Summary of Care Provided Minutes Spent on Discharge: 35 Hospital Course: 69 year old female with below past medical history hospitalized for decompensated liver failure 2/2 autoimmune hepatitis, cirrhosis of liver, esophageal varices, portal hypertension, ascites requiring paracentesis, portal vein thrombosis, patient declined TIPS procedure, admitted to TCU with debility, here for rehabilitation, strengthening, prior to discharge home with . 10/12/2024 IMPRESSION: Successful left abdominal paracentesis removed [address] Henry recommends paracentesis [id number]. Discharge home with 10/23/2024, [facility] PT/OT/SN/ST, palliative, Walker, BSC. Walker: Patient is unsafe to use a cane and requires a walker for ambulation in the home and the community. BSC: Patient is confined to a single room unable to safely access toilet. Patient is confined to one level of the home environment and there is no toilet on that level. Physical Exam Const alert General Appearance: cooperative HEENT normocephalic Eyes PERRL and EOMs intact bilaterally Neck supple, no JVD and no carotid bruits Resp normal respiratory effort, normal air movement and clear to auscultation bilaterally Cardio regular rate and regular rhythm GI normal to inspection, nondistended, normoactive bowel sounds, non-tender and non-distended Extremity normal capillary refill General Extremity: Negative for edema Skin no rashes or lesions noted General Skin Exam: no breakdown Psych affect normal Appearance: appropriate Weight / BMI Weight Weight: 53.932 kg Body Mass Index (BMI) 25.0 ABG / Lab / Microbiology Data 10/19/24 07:26 10/19/24 07:26 Laboratory: Laboratory Results - last 24 hr 10/19/24 16:08: POC Glucose 281 H 10/19/24 21:34: POC Glucose 230 H 10/20/24 06:22: POC Glucose 120 H 10/20/24 11:21: POC Glucose 156 H Microbiology: Microbiology 10/18/24 07:35 Biopsy - Tissue Gram Stain - Final 10/18/24 07:35 Biopsy - Tissue Tissue Culture - Preliminary Mixed Gram Positive Organisms D/C Instructions Discharge Activity: Return to Normal Activity, May Shower and Use Walker Weight Bearing Status: Weight bearing as tolerated Call your doctor if you observe: Fever of 101 or Higher, Inability to urinate, Inability to have a bowel movement, Shortness of breath, Dizziness, Fainting spells, Swelling in the ankles, Chest pain and Uncontrolled pain DC O2, CPAP, BIPAP Needs Home O2 Discharge instructions: No Additional Instructions: Discharge home with 10/23/2024, [facility] PT/OT/SN/ST, palliative, Walker, BSC. Walker: Patient is unsafe to use a cane and requires a walker for ambulation in the home and the community. BSC: Patient is confined to a single room unable to safely access toilet. Patient is confined to one level of the home environment and there is no toilet on that level. Please Follow Up With: Anthony Henry MD When: 1 month. Meaningful Use Info Meaningful Use Meaningful Use Diagnoses (Choose all that apply): None applicable Discharge Plan Admission Admit Date/Time: 10/04/24 16:07 Primary Reason for Your Visit: Debility. Attending Provider: Gabriel Strong Chi Primary Care Provider: Alonzo Sequeira Consulting Providers: Juanjose Chan; Loreta Barber; Lyla Oden; Celia Morrison; Etser Patiño FOUNDER AND PRESIDENT; Trice Fuchs Instructions Additional Instructions / Restrictions: Discharge home with 10/23/2024, [facility] PT/OT/SN/ST, palliative, Walker, BSC. Walker: Patient is unsafe to use a cane and requires a walker for ambulation in the home and the community. BSC: Patient is confined to a single room unable to safely access toilet. Patient is confined to one level of the home environment and there is no toilet on that level. Discharge Orders/Prescriptions Prescriptions: New sennosides-docusate sodium [Stimulant Laxative Plus] 8.6-50 mg Tablet 2 tab PO BID 30 Days Qty: 120 0RF prednisone 5 mg Tablet 7.5 mg PO DAILYCM 30 Days Qty: 45 0RF acetaminophen 500 mg Tablet 1,000 mg PO Q6H PRN PRN (Reason: Pain Score 1-10) Qty: 0 0RF furosemide 20 mg Tablet 20 mg PO 1200 30 Days Qty: 30 0RF glipizide 5 mg Tablet 5 mg PO 0800 Qty: 0 0RF spironolactone 50 mg Tablet 50 mg PO DAILY 30 Days Qty: 30 0RF Continued ezetimibe 10 mg tablet 10 mg PO DAILY pantoprazole [Protonix] 40 mg tablet,delayed release (DR/EC) 40 mg PO BID 30 Days Qty: 60 2RF azathioprine 50 mg tablet 50 mg PO QDAY Rx Instructions: to start 10/08/24 Discontinued glipizide 5 mg tablet 5 mg PO BID carvedilol 6.25 mg tablet 6.25 mg PO BID Rx Instructions: must administer with a meal/food ferrous sulfate 325 mg (65 mg iron) tablet 325 mg PO Q OTHER DAY Qty: 60 0RF furosemide [Lasix] 20 mg tablet 20 mg PO .noon Rx Instructions: Hold SBP LESS than 90 mhg prednisone 5 mg tablet 2.5 mg PO DAILY 30 Days Qty: 15 1RF Rx Instructions: Starting October 03, 2024 after completion of prednisone 10 mg daily prescription calcium carbonate-vitamin D3 1 TABLET tablet 1 tab PO BIDCM Qty: 60 0RF sucralfate 1 gram Tablet 1 g PO 1HR_ACHS 30 Days Qty: 90 0RF spironolactone 25 MG tablet 50 mg PO DAILY denosumab 60 mg/mL syringe subcut ursodiol 500 mg tablet 500 mg PO Q8H 30 Days Qty: 90 4RF Referrals / Follow Up: Alonzo Sequeira MD [Primary Care Provider] - Disposition Disposition (needs filled in before D/C Order can be placed): Home Health Service
--- NOTE | 2024-10-20 15:21 | CASEMGMT ---
Social Work SW received call from dtr to discuss Dr. Henry order for palliative care. SW answered dtr's questions. Educated to palliative care services vs hospice services and the difference between insurance coverage. SW to place referral once there is a DC date and palliative will schedule with pt after DC in the home. Dtr agreed to services. SW inquired about DC plans. Dtr states home with and cookie mixer helper with [facility]. SW educated to skilled HHC vs OP therapy. Dtr prefers HHC. SW confirmed [facility] request for FWW and BSC. SW will notify dtr/pt once there is a DC date from insurance. Dtr appreciative. - Insurance issued LCD 10/22, DC 10/23 SW phoned dtr shortly after first conversation with DC date; left detailed VM. SW presented to pt's room and pt was on FaceTime with pt. SW educated pt to DC date. SW provided [facility]OM[facility] to pt and educated to appeal rights. Pt verbalized understanding and denied appeal. Pt is agreeable to DC. SW educated that DME will be delivered to pt's room prior to DC, palliative care referral will be made and SW had DC conference planning manager send [facility] agency list. Dtr confirmed receipt. SW educated [facility] agency will contact pt/ for SOC date date, but typically 2-3 days after DC, pending PCP signing orders. Dtr to review list and notify this worker of preference. Pt practiced car tx yesterday and it was unsuccessful, thus pt elected w/c transport home. SW educated to [facility] and estimated pricing. pt and dtr agreed. Pt inquired about other options. SW offered [facility], but typically they need more advanced notice, but offered to call. Pt requested. - SW sent email referral to [facility]. SW phoned [facility] and they do not have availability for 10/23. SW scheduled w/c transport with [facility] for [facility]. - SW returned to pt's room and updated on transport. was present. SW provided with resources for [facility] for transport and [facility]. appreciative. IDT updated. Plan: DC home with 10/23, [facility] PT/OT/ST/SN, palliative Kristin Parham LCAC OPERATOR KEYMODULE ASSEMBLY SUPERVISOR
--- NOTE | 2024-10-20 15:43 | CASEMGMT ---
Social Work SW completed BIMS (02/26) and PHQ-2 () for MDS assessment. Kristin Parham VISUAL DEVELOPER MANAGER DEVELOPMENT
[2024-10-21] MEDS: Arthritis Pain Compound 60 CLICK TUBE TOPICAL ×2 (09:34→20:06)
[2024-10-21 09:52] VITALS: BP 110/56; PULSE 118; TEMP 37.7; O2SAT 97
--- NOTE | 2024-10-21 09:53 | NURSING ---
PT HAS TEMP OF 99.8 AND SHOULDER/ARM PAIN. PRN TYLENOL GIVEN. WILL CONTINUE TO MONITOR.
[2024-10-21 11:20] VITALS: BP 94/57; PULSE 99; RESP 16; TEMP 37.4
[2024-10-21 14:00] VITALS: PULSE 99; RESP 94; O2SAT 94
--- NOTE | 2024-10-21 14:25 | NURSING ---
PT BLOOD SUGAR BEFORE LUNCH WAS 85. OJ GIVEN AND B.S RECHECKED,143. WILL CONTINUE TO MONITOR.
[2024-10-21 16:38] VITALS: TEMP 36.3
[2024-10-22] MEDS: Arthritis Pain Compound 60 CLICK TUBE TOPICAL ×2 (08:11→20:50)
[2024-10-22 08:18] VITALS: BP 117/69; PULSE 114; RESP 16; TEMP 37.5; O2SAT 96
[2024-10-22 12:03] VITALS: BP 96/49; PULSE 107
[2024-10-22 13:30] VITALS: PULSE 107; RESP 18; O2SAT 96
[2024-10-22 14:00] VITALS: TEMP 37
--- NOTE | 2024-10-22 21:38 | NURSING ---
Updated Dr. Strong on recent preliminary results of tissue. Per Dr. Strong, no new orders. Patient D/C palliative care tomorrow.
[2024-10-23 06:11] VITALS: PULSE 98; RESP 17; O2SAT 96
[2024-10-23] MEDS: Arthritis Pain Compound 60 CLICK TUBE TOPICAL (08:33)
--- NOTE | 2024-10-23 09:42 | CASEMGMT ---
Social Work SW phoned dtr and left VM inquiring skilled HHC agency of choice. Kristni Parham HORIZONTAL BORING MILL SET UP OPERATOR WINDSHIELD REPAIR TECHNICIAN
[2024-10-23 12:07] VITALS: BP 89/50; PULSE 104; RESP 18; TEMP 37.3; O2SAT 96
--- NOTE | 2024-10-25 15:58 | CASEMGMT ---
Social Work SW received call from pt's dtr, Lila, explaining homegoing is not success. Pt is requiring too much assistance for home, and the dtr is needing to drive from her home, 45 minutes away, to assist pt with cleaning up after a bowel movement. Dtr stated she has called all the private duty agencies and there are large gaps in the hours d/t location and staffing. Dtr inquired about pt readmitting to a SNF. SW educated to [facility] insurance, precert process or admitting private pay. Admitting from home is a possibility if the pt does not require hospitalization. SW reminded dtr of [facility] and stated this worker provided with list of resources. Dtr requested this worker email that information to her, as she was unaware. SW agreed. SW offered to call [facility] to add a SW to assist with ongoing resources and possibility for Medicaid. Dtr states pt is just over resources for eligibility. SW explained there are different qualifications for community vs SNF [facility], and may be worth discussing again with the [facility] SW. Dtr agreed. Dtr stated pt sees Dr. Strong (PCP) on 10/30. SW offered to provide Dr with update prior to visit. Dtr appreciative of assistance. SW emailed resources to dtr and updated Dr. Strong. SW phoned [facility] with request to add SW. Kristin COLE GRAINER MACHINE
== END 2024-10-23 12:00 | disposition home health service (06) | DRG 432 ==
PROVIDERS: Radiology Nuclear Radiology; Admitting Provider Family Medicine Geriatric Medicine; PCP Family Medicine; Visit Provider Family Medicine Geriatric Medicine
DX: K74.60 Unspecified cirrhosis of liver (principal); I81 Portal vein thrombosis; I85.00 Esophageal varices without bleeding; K76.6 Portal hypertension; R18.8 Other ascites; K72.90 Hepatic failure, unspecified without coma; E11.65 Type 2 diabetes mellitus with hyperglycemia; M32.9 Systemic lupus erythematosus, unspecified; E78.00 Pure hypercholesterolemia, unspecified; K75.4 Autoimmune hepatitis; M06.9 Rheumatoid arthritis, unspecified; K21.9 Gastro-esophageal reflux disease without esophagitis; Z87.891 Personal history of nicotine dependence; Z79.84 Long term (current) use of oral hypoglycemic drugs; Z79.52 Long term (current) use of systemic steroids; Z79.899 Other long term (current) drug therapy
CPT/HCPCS: 36415; 49083; 71046; 73030; 74018; 80048; 82962; 85025; 85610; 87070; 87075; 87077; 87186; 87205; 88304; 88305; 92507; 92523; 92526; 92610; 97110; 97116; 97162; 97166; 97530; 97535; 97802; P9047; A4216

== ENCOUNTER → 2024-10-12 | Outpatient (CLI) | payer MEDICARE, SELFPAY ==
[2024-10-12 13:46] VITALS: BP 110/48; PULSE 89; RESP 18; TEMP 36.6; O2SAT 98
[2024-10-12 14:15] VITALS: BP 108/57; PULSE 89; RESP 18; O2SAT 98
[2024-10-12] MEDS: Lidocaine 2% (20 ml mdv) 20 ML Vial INFILT (14:21)
[2024-10-12 14:24] VITALS: BP 99/59; PULSE 88; RESP 18; O2SAT 98
[2024-10-12 14:33] VITALS: BP 90/49; PULSE 88; RESP 18; O2SAT 98
[2024-10-12 14:39] VITALS: BP 91/50; PULSE 88; RESP 18; TEMP 36.6; O2SAT 98
== END | disposition home or self-care (01) ==
LOC: US 08:54
PROVIDERS: PCP Family Medicine; Referring Provider Family Medicine Geriatric Medicine; Visit Provider Family Medicine Geriatric Medicine
DX: Z00.00 Encounter for general adult medical examination without abnormal findings (principal)

== ENCOUNTER → 2024-10-30 | Outpatient (CLI) | payer MEDICARE, SELFPAY ==
--- NOTE | 2024-10-30 08:46 | US_ITS ---
PROCEDURE: PARACENTESIS WITH US 10/30/2024 REASON FOR EXAM: CIRRHOSIS, ASCITES TECHNIQUE: PARACENTESIS WITH US FINDINGS: Procedure: Following informed consent, and using standard sterile technique, a left abdominal paracentesis was performed under sonographic guidance. 2% lidocaine local anesthesia was followed by placement of a 5 [place] catheter into the left pleural fluid collection. Approximately 2600 mL clear yellow fluid was successfully removed. No complication was encountered, in the patient left the department in good condition without significant complaint. US/Paracentesis with US IMPRESSION: Successful left abdominal paracentesis. Reading Location: [place] [id number]
[2024-10-30 08:55] VITALS: BP 121/61; PULSE 130; RESP 18; O2SAT 93
[2024-10-30 09:00] VITALS: BP 105/68; PULSE 128; RESP 18; O2SAT 98
[2024-10-30] MEDS: Lidocaine 2% (20 ml mdv) 20 ML Vial INFILT (09:13)
[2024-10-30 09:15] VITALS: BP 107/68; PULSE 121; RESP 16; O2SAT 98
[2024-10-30 09:30] VITALS: BP 97/54; PULSE 117; RESP 16; O2SAT 98
== END | disposition home or self-care (01) ==
PROVIDERS: PCP Family Medicine; Referring Provider Internal Medicine; Visit Provider Internal Medicine
DX: K74.60 Unspecified cirrhosis of liver (principal); R18.8 Other ascites
CPT/HCPCS: 49083